=== PATIENT | male | born 1950 | race Caucasian/White ===

== ENCOUNTER → 2019-12-23 14:40 | Outpatient (BNVA) | payer OTHER, SELFPAY | PROVIDERS: Visit Provider Internal Medicine | DX: I48.20 Chronic atrial fibrillation, unspecified (principal); Z51.81 Encounter for therapeutic drug level monitoring; Z79.01 Long term (current) use of anticoagulants | CPT/HCPCS: 85610 ==

== ENCOUNTER 2019-12-31 12:43 | Outpatient (REF) | payer OTHER, SELFPAY | END 2019-12-31 12:44 | disposition home or self-care (01) | LOC: HO.LAB 12:43 | PROVIDERS: PCP Internal Medicine; Visit Provider Physician Assistant | DX: Z01.812 Encounter for preprocedural laboratory examination (principal); M17.12 Unilateral primary osteoarthritis, left knee | CPT/HCPCS: 85610 ==

== ENCOUNTER 2020-01-03 06:26 | Inpatient (IN) | payer OTHER, SELFPAY ==
--- NOTE | 2019-12-31 11:08 | HO.ANESPROP2 ---
Documented by User: Starr Manzoney 12/31/19 13:17 HPI - Anesthesia Eval Consult details Narrative: 69yo M for L TKA rescheduled from 10/2019 d/t rash on L leg Cardiac cleared at [facility] PCP cleared with increased risk per health hx s/p R TKA 02/2019 with spinal and block (todd to 30's preop - given inotrop-dopamine per cardiology, see record on chart) [facility] Past Medical History Medical History Anemia Atrial fibrillation BPH (benign prostatic hyperplasia) COPD (chronic obstructive pulmonary disease) Deafness in left ear Diabetes GERD (gastroesophageal reflux disease) Hard of hearing History of amputation of toe Obesity JUDIE (obstructive sleep apnea) Osteoarthritis Peripheral edema Venous stasis Surgical History Surgical History History of bilateral hip replacements Hx of colonoscopy Hx of total knee arthroplasty Hx of total shoulder replacement Uses cochlear implant Social History Social History Household Members: Spouse Alcohol intake: never Smoking Status: Former smoker Second Hand Smoke Exposure: No Use of substances other than those prescribed or required for medical reasons: No Advance Directives: Yes Advance Directives Information Provided: No Advance Directives on File: Yes Advance Directives Date on File: 12/31/19 Meds Allergies Allergy/AdvReac Type Severity Reaction Status Date / Time Penicillins [PENICILLINS] Allergy Intermediate rash- Verified 12/31/19 14:04 STATES BAD RXN CHILD penicillin V Allergy Unknown RASH Verified 12/31/19 14:04 Home Medications Medication Instructions Recorded Confirmed Type carvedilol 1 tab PO BID 12/31/19 12/31/19 History digoxin 1 tab PO DAILY 12/31/19 12/31/19 History diltiazem HCl 1 cap PO DAILY 12/31/19 12/31/19 History diltiazem HCl [Cartia XT] 1 cap PO DAILY 12/31/19 12/31/19 History enoxaparin [Lovenox] 100 mg SUBCUT DAILY 12/31/19 12/31/19 History furosemide 1 tab PO DAILY 12/31/19 12/31/19 History glipizide tab PO 12/31/19 History insulin glargine [Lantus Solostar 30 unit SUBCUT BEDTIME 12/31/19 12/31/19 History U-100 Insulin] metformin tab PO 12/31/19 History omeprazole 1 cap PO DAILY 12/31/19 12/31/19 History omeprazole 10 mg capsule,delayed 10 mg PO DAILY 12/31/19 History release oxycodone 1 tab PO Q6H PRN 12/31/19 01/03/20 History pravastatin 1 tab PO DAILY 12/31/19 12/31/19 History tamsulosin 1 cap PO DAILY 12/31/19 12/31/19 History Exam Exam Date and Time: December 31, 2019 1108 Pertinent Lab Results Pertinent Lab Results: Laboratory Tests 07/12/19 10/12/19 11:50 06:34 WBC 11.3 H Hgb 13.9 L Hct 40.2 L Plt Count 224 Sodium 141 Potassium 4.2 Chloride 103 BUN 17 H Creatinine 0.94 Laboratory Tests 11/05/19 15:00 ABO Group T&S COMPLETED Narrative Narrative: EKG 10/14/19: Afib @ 74, PVC vs aberrant conduction, non-spec ST-T change ECHO 07/2019: LVEF 60-65% mild MR, mild TR, mild pulm htn Cath 2013: no signif CAD Documented by User: Lazaro Hsieh MD 01/03/20 12:24 [facility] Past Medical History Medical History Anemia Atrial fibrillation BPH (benign prostatic hyperplasia) COPD (chronic obstructive pulmonary disease) Deafness in left ear Diabetes GERD (gastroesophageal reflux disease) Hard of hearing History of amputation of toe Obesity JUDIE (obstructive sleep apnea) Osteoarthritis Peripheral edema Venous stasis Surgical History Surgical History History of bilateral hip replacements Hx of colonoscopy Hx of total knee arthroplasty Hx of total shoulder replacement Uses cochlear implant Social History Social History Household Members: Spouse Alcohol intake: never Smoking Status: Former smoker Second Hand Smoke Exposure: No Use of substances other than those prescribed or required for medical reasons: No Advance Directives: Yes Advance Directives Information Provided: No Advance Directives on File: Yes Advance Directives Date on File: 12/31/19 Meds Allergies Allergy/AdvReac Type Severity Reaction Status Date / Time Penicillins [PENICILLINS] Allergy Intermediate rash- Verified 12/31/19 14:04 STATES BAD RXN CHILD penicillin V Allergy Unknown RASH Verified 12/31/19 14:04 Home Medications Medication Instructions Recorded Confirmed Type carvedilol 1 tab PO BID 12/31/19 12/31/19 History digoxin 1 tab PO DAILY 12/31/19 12/31/19 History diltiazem HCl 1 cap PO DAILY 12/31/19 12/31/19 History diltiazem HCl [Cartia XT] 1 cap PO DAILY 12/31/19 12/31/19 History enoxaparin [Lovenox] 100 mg SUBCUT DAILY 12/31/19 12/31/19 History furosemide 1 tab PO DAILY 12/31/19 12/31/19 History glipizide tab PO 12/31/19 History insulin glargine [Lantus Solostar 30 unit SUBCUT BEDTIME 12/31/19 12/31/19 History U-100 Insulin] metformin tab PO 12/31/19 History omeprazole 1 cap PO DAILY 12/31/19 12/31/19 History omeprazole 10 mg capsule,delayed 10 mg PO DAILY 12/31/19 History release oxycodone 1 tab PO Q6H PRN 12/31/19 01/03/20 History pravastatin 1 tab PO DAILY 12/31/19 12/31/19 History tamsulosin 1 cap PO DAILY 12/31/19 12/31/19 History Exam Airway Mallampati Class: II TM Dist: >3cm Neck ROM: Full Lungs: nl Assessment and Plan Assessment Anesthesia Assessment: Anesthesia Plan Discussed and Chart Reviewed Final Anesthetic Review NPO: Yes ASA Class: IV Final Preanesthetic Review: No Changes in Pt Med Stat, Meds/Allgs Chart Reviewed, Consent Obtained/Reviewed and Anes Risks/Benef Reviewed Patient Risk: High Procedure Risk: Intermediate Anesthetic Plan Anesthetic Plan: MAC:, Spinal and Regional Block Disposition: Standard PACU
[2019-12-31 12:48] VITALS: BMI 37.0
--- NOTE | 2019-12-31 12:54 | HP_ITS ---
DATE OF SERVICE: 01/03/2020 Preoperative history and physical HISTORY OF PRESENT ILLNESS: The patient is a 69-year-old male, who was seen in the office earlier this month for preop evaluation prior to left total knee replacement originally scheduled in October. The patient developed open ulcerations in the lower leg, that grew out MRSA. His surgery had to be postponed until this cleared up. On his last check, his scabs have dried and appeared to have cleared up. He was seen again on 12/09/2019. REVIEW OF SYSTEMS: No chest pains. Some dyspnea with exertion. No coughing or wheezing. Some peripheral edema. No headache or dizziness. No abdominal pain or heartburn. No dysuria. He has joint pains in multiple areas including his back pain. He walks with a cane. No speech changes. He is hard of hearing. He has been depressed about his pain and decreased mobility. Sleep and appetite are unchanged. He does not complain of seasonal allergies. His skin problem seems to have improved. PRESENT MEDICATIONS: Metformin 1000 in the morning and 500 at night, Lantus insulin 36 units a day, Pravachol 80 mg a day, tamsulosin 0.4 mg at bedtime, diltiazem 240 mg a day, digoxin 0.25 mg a day, Coumadin to keep the INR between 2 and 3, Lasix 40 mg a day, glipizide 10 mg p.o. b.i.d., Prilosec 40 mg a day, carvedilol 12.5 mg p.o. b.i.d., and oxycodone 1 p.o. 5 times a day for pain control. ALLERGIES: HE HAS AN ALLERGY TO PENICILLIN. FAMILY HISTORY: Please see old record. SOCIAL HISTORY: He is retired, , disabled, has 1 daughter. PHYSICAL EXAMINATION: GENERAL: He is awake and alert, in no acute distress. VITAL SIGNS: Respiratory rate 12, blood pressure 124/84, heart rate atrial fibrillation. HEENT: TMs clear. NECK: Supple. No lymph nodes, bruits, or masses. LUNGS: Clear, little distant. ABDOMEN: Obese, soft. EXTREMITIES: 1 to 2+ edema. Leg wounds crusted over and dry. ASSESSMENT AND PLAN: He is medically stable for the proposed procedure. Risks are his history of atrial fibrillation, peripheral edema, methicillin-resistant Staphylococcus aureus history, chronic obstructive pulmonary disease. I will be available if there are any medical questions about his listed medications or prior medical problems. He also has a history of sleep apnea. He has had both hips replaced in 1994 and 1995. He has had 3 pneumonia vaccines in the past. I am not aware of his flu shot status at this time. He has had some issues with anemia. MD GIO Khan/JURGEN / [id number]
--- NOTE | 2020-01-02 20:28 | MHC.SHP ---
Pre-Procedural Eval Section A The patient is an INPATIENT: No Changes since office visit: No Cold of Flu in the past 2 weeks, No New Medical Problems, No Changes in Medication and No Patient answered all questions The History & Physical has been completed within 30 days and I have reviewed it.: Yes Section B Chief Complaint: Osteoarthritis Allergies: Allergies Allergy/AdvReac Type Severity Reaction Status Date / Time Penicillins [PENICILLINS] Allergy Intermediate rash- Verified 12/31/19 14:04 STATES BAD RXN CHILD penicillin V Allergy Unknown RASH Verified 12/31/19 14:04 Plan Patient has been examined and remains a candidate for the planned procedure
[2020-01-03] VITALS (23 sets, daily range): BP systolic 106–175; BP diastolic 51–93; PULSE 32–136; RESP 16–24; TEMP 36.5–39.5; O2SAT 90–99
--- NOTE | 2020-01-03 | ECG_ITS ---
Test Reason : tachycardia Blood Pressure : / mmHG Vent. Rate : 136 BPM Atrial Rate : 133 BPM P-R Int : 000 ms QRS Dur : 076 ms QT Int : 256 ms P-R-T Axes : 000 089 263 degrees QTc Int : 385 ms Atrial fibrillation with rapid vent response ST & T wave abnormality, consider inferior ischemia Abnormal ECG When compared with ECG of 15-FEB-2019 11:12, Vent. rate has increased BY [address] now depressed in Anterolateral leads Inverted T waves have replaced nonspecific T wave abnormality in Inferior leads Referred By: Deb Peng Electronically Signed By:VANESSA THOMAS MD
--- NOTE | 2020-01-03 | XR_ITS ---
EXAMINATION: XR CHEST CLINICAL INFORMATION: Hypoxia COMPARISON: Chest 07/31/2018 TECHNIQUE: Frontal portable view of the chest was obtained. 8:46 PM FINDINGS: Lungs are clear. No pulmonary vascular congestion. There is no pleural effusion. The heart size is normal. The cardiac and mediastinal contours are normal. Status post left shoulder replacement. Multilevel degenerative spondylosis of dorsal spine. XR/XR chest 1V IMPRESSION: Unremarkable examination.
[2020-01-03 09:01] LABS: Prothrombin Time 11.9 SEC (10.8-13.0)
[2020-01-03 09:07] LABS: Glucose, Whole Blood 158 mg/dL (60-115)
[2020-01-03] MEDS: Gabapentin 600 MG TABLET PO (09:29)
[2020-01-03] MEDS: Lactated Ringers 1,000 ML 100 ML IVCONT ×2 (09:29→17:42)
[2020-01-03 09:30] LABS: SARS COV2 PCR INHOUSE NEGATIVE (Negative)
--- NOTE | 2020-01-03 12:49 | PM.PRCOR ---
Brief Operative Note Date of procedure: 01/03/20 Pre-op diagnosis: OA LEFT KNEE Post-op diagnosis: same Procedure: LEFT TKA Anesthesia: regional and spinal Surgeon: Veronica Morrow Estimated blood loss (mL): 50 Condition: stable Disposition: PACU
--- NOTE | 2020-01-03 13:24 | HO.POSTANES ---
Post Anesthesia Evaluation Post Anesthesia Evaluation Vital Signs: Vital Signs Temp Pulse Resp BP Pulse Ox 01/03/20 13:10 36 L 16 99 01/03/20 12:55 40 L 16 110/56 L 96 01/03/20 12:50 39 L 16 111/52 L 98 01/03/20 12:45 41 L 16 112/63 98 01/03/20 12:40 97.8 F 39 L 16 106/51 L 98 01/03/20 09:28 98.4 F 32 L 16 128/68 97 Anesthesia: Spinal Mental Status: Awake Pain Control: Satisfactory Nausea/Vomiting: None Hydration: Adequate Anesthesia-Related Issues: No Anes. Related Issues
[2020-01-03] MEDS: oxyCODONE HCl Immed Release 5 MG TABLET PO (15:59)
[2020-01-03] MEDS: HYDROmorphone HCl 1 MG/ML SYRINGE IVPUSH (16:10)
[2020-01-03] MEDS: Glycopyrrolate 0.2 MG/ML VIAL IVPUSH (16:15)
[2020-01-03 17:34] LABS: Glucose, Whole Blood 75 mg/dL (60-115)
[2020-01-03] MEDS: Acetaminophen 325 MG TABLET 650 MG PO (19:57)
--- NOTE | 2020-01-03 20:00 | P.CONIM_ITS ---
History of Present Illness Data of Consult Service Date: 01/03/20 <Deb Peng NP - Last Filed: 01/04/20 18:29> Requesting physician: Veronica Morrow <Deb Peng NP - Last Filed: 01/04/20 18:29> Primary Care Provider: Darien Bruner MD <Deb Peng NP - Last Filed: 01/04/20 18:29> HPI Reason for consult: medical management <Deb Peng NP - Last Filed: 01/04/20 18:29> 69-year-old man with history of atrial fibrillation, arthritis, diabetes admitted by Orthopedic surgery and is status post left total knee arthroplasty. Surgery was unremarkable. Patient has been able to eat and drink without any nausea vomiting or diarrhea. Patient has a moderate amount of pain at this time. He has no acute medical complaints. It appears that he has a fever of 102.9, heart rate 124. EKG shows atrial fibrillation with rapid ventricular response and likely aspiration pneumonia post-op. During the interview patient did have some noticeable shivers. <Deb Peng NP - Last Filed: 01/04/20 18:29> Review of Systems Review of Systems: Denies any recent fever chills or decrease in appetite respiratory denies any shortness of breath coverage production cardiovascular is adjustment of any PND or edema gastrointestinal denies any dysphagia abdominal pain nausea vomiting or diarrhea genitourinary denies any dysuria frequency or hematuria musculoskeletal denies any joint pain or swelling neuropsych denies any weakness or seizures all other systems reviewed are negative <Deb Peng NP - Last Filed: 01/04/20 18:29> [facility] Medical History: Medical History Anemia Atrial fibrillation BPH (benign prostatic hyperplasia) COPD (chronic obstructive pulmonary disease) Deafness in left ear Diabetes GERD (gastroesophageal reflux disease) Hard of hearing History of amputation of toe Obesity JUDIE (obstructive sleep apnea) Osteoarthritis Peripheral edema Venous stasis <Deb Peng NP - Last Filed: 01/04/20 18:29> Surgical History: Surgical History History of bilateral hip replacements Hx of colonoscopy Hx of total knee arthroplasty Hx of total shoulder replacement Uses cochlear implant <Deb Peng NP - Last Filed: 01/04/20 18:29> Social History: Social History Household Members: Spouse Housing: House Do you presently have visiting nurse or other home services: No (for discharge) Alcohol intake: never Smoking Status: Former smoker Smoking Quit Date: 1999 Second Hand Smoke Exposure: No Use of substances other than those prescribed or required for medical reasons: No Currently Displaying Signs/Symptoms of Drug Intoxication Withdrawal: No Have you been hit, kicked, punched, or otherwise hurt by someone within the past year? If so, by whom?: No Do you feel safe in your current relationship?: Yes Is there a partner from a previous relationship who is making you feel unsafe now?: No Are you made to feel afraid or neglected: No Confucianist Healthcare Practices: scientologist Advance Directives: Yes Advance Directives Information Provided: No Advance Directives on File: Yes Advance Directives Date on File: 12/31/19 Do you have thoughts of harming others: None Do you have a plan to hurt others: No Plan Recently lost weight without trying: No service: No 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al status: retired <Deb Peng NP - Last Filed: 01/04/20 18:29> Meds Allergies/Adverse reactions: Allergies Allergy/AdvReac Type Severity Reaction Status Date / Time Penicillins [PENICILLINS] Allergy Intermediate rash- Verified 12/31/19 14:04 STATES BAD RXN CHILD penicillin V Allergy Unknown RASH Verified 12/31/19 14:04 <Deb Peng NP - Last Filed: 01/04/20 18:29> Home medications: Home Medications Medication Instructions Recorded Confirmed Type carvedilol 12.5 mg PO BID 12/31/19 01/04/20 History digoxin 250 mcg PO DAILY 12/31/19 01/04/20 History diltiazem HCl 240 mg PO DAILY 12/31/19 01/04/20 History furosemide 40 mg PO DAILY 12/31/19 01/04/20 History glipizide 10 mg PO BIDWM 12/31/19 01/04/20 History insulin glargine [Lantus Solostar 30 unit SUBCUT BEDTIME 12/31/19 12/31/19 History U-100 Insulin] metformin 1,500 mg PO DAILY 12/31/19 01/04/20 History omeprazole 40 mg PO DAILY 12/31/19 01/04/20 History oxycodone 5 mg PO Q6H PRN 12/31/19 01/04/20 History pravastatin 80 mg PO DAILY 12/31/19 01/04/20 History tamsulosin 0.4 mg PO DAILY@1700 12/31/19 01/04/20 History <Deb Peng NP - Last Filed: 01/04/20 18:29> Physical Exam Vital Signs and Narrative: Vital Signs: Last Vital Signs Temp 102.9 F H 01/03/20 19:07 Pulse 124 H 01/03/20 19:07 Resp 18 01/03/20 19:07 BP 163/93 H 01/03/20 19:07 Pulse Ox 90 L 01/03/20 19:07 Body Mass Index 37.0 <Deb Peng NP - Last Filed: 01/04/20 18:29> Appearing in no acute distress head is normocephalic atraumatic eyes pupils are PERRLA sclera is anicteric mouth throat mucous membranes are intact and moist neck is supple no lymphadenopathy, no JVD noted lung sounds are clear to auscultation heart regular rate rhythm, clear S1, S2 msk Left knee dressing clean, dry and intact positive bowel sounds, abdomen is soft, nontender neuro patient is alert x3, no focal deficits <Deb Peng NP - Last Filed: 01/04/20 18:29> Results Labs Labs: Laboratory Tests 12/31/19 01/03/20 01/03/20 14:35 08:28 08:40 PT 11.9 INR 1.0 POC Glucose Coronavirus (PCR) NEGATIVE Blood Type B Positive Antibody Screen NEGATIVE 01/03/20 01/03/20 09:04 17:30 PT INR POC Glucose 158 H 75 Coronavirus (PCR) Blood Type Antibody Screen <Deb Peng NP - Last Filed: 01/04/20 18:29> Assessment and Plan (1) Osteoarthritis of left knee: Status: Acute <Deb Peng NP - Last Filed: 01/04/20 18:29> 69-year-old man admitted by Orthopedic surgery and is status post left total knee arthroplasty. During the interview the patient did have some intermittent shivering and at 19:00 vital signs were taken and he was noted to have a fever of 102.9, heart rate of 124 and oxygen saturation of 90% on room air. Patient denied any shortness of breath or chest pain. There was a question of acute infection, aspiration pneumonia. Will treat for PNA and possible CHF as well as afib rvr. Left total knee arthroplasty. Management as per surgical team. Pain management. Severe sepsis. Fever, tachypnea and lactic acidosis. Will give 30ml/KG bolus. Tachycardia is likely related to atrial fibrillation with RVR. Acute hypoxic respiratory failure secondary to CAP vs aspiration. Will treat broadly. Follow blood cultures. Atrial fibrillation with rapid ventricular response. Will treat with IV push Cardizem. If heart rate does not come down consider Cardizem drip. Monitor on telemetry. Patient on carvedilol, digoxin and diltiazem at home as well as warfarin, hold for now. Heart failure. ? edema, follow BNP. One dose of Lasix given. Diabetes mellitus. Sliding scale, ADA diet, Hold Lantus, low blood sugar. GERD. Continue PPI. Hyperlipidemia. Continue statin. BPH. Continue tamsulosin. DVT prophylaxis as per surgical team. Patient is normally on warfarin at home atrial fibrillation. Discussed with Dr. Hewitt Full code <Deb Peng NP - Last Filed: 01/04/20 18:29>
[2020-01-03] MEDS: dilTIAZem HCL 50 MG/10 ML VIAL IVPUSH (20:25)
[2020-01-03 20:46] LABS: MANUAL DIFF FLAG SCAN; PLT CLUMP 1; SCAN SMEAR FLAG 1
[2020-01-03 20:48] LABS: Red Cell Distribution Width 14.3 % (11.0-16.0)
[2020-01-03 20:51] LABS: Anion Gap 18 (12-20); Blood Urea Nitrogen 18 mg/dL (9-16); Calcium 8.9 mg/dL (8.4-10.2); Carbon Dioxide 24 mmol/L (22-29); Chloride 104 mmol/L (96-108); Creatinine Clr Calc Pharmacy 88.2; Estimated Glomerular Filt Rate > 60; Glucose Random 130 mg/dL (60-115); Potassium 4.3 mmol/l (3.3-5.1); Sodium 142 mmol/L (135-145)
[2020-01-03 20:57] LABS: Basophils Percent Auto 0.2 % (0-2)
[2020-01-03] MEDS: Furosemide 40 MG/4 ML VIAL IVPUSH (20:58)
[2020-01-03 20:59] LABS: Eosinophils Percent Auto 0.5 % (0-4); Hematocrit 39.9 % (42-52); Imm Gran Abs Auto 0.08 X10*3/uL (0.00-0.03); Imm Gran Pct Auto 1.9 % (0.0-0.4); Lymphocytes Absolute Auto 0.1 X10*3/uL (1.2-4.9); Lymphocytes Percent Auto 3.3 % (20-40); Mean Corpuscular HGB Conc 32.6 g/dl (31.0-36.0); Mean Platelet Volume 10.5 fL (9.4-12.4); Monocytes Percent Auto 0.9 % (2-11); Neutrophils Absolute Auto 3.9 X10*3/uL (2.0-8.3); Neutrophils Percent Auto 93.2 % (45-73); Platelet Count 149 X10*3/uL (160-400); White Blood Count 4.2 X10*3/uL (4.8-10.8)
[2020-01-03 21:05] LABS: Lactic Acid 5.3 mmol/L (0.5-2.0)
[2020-01-03 21:19] LABS: Glucose, Whole Blood 124 mg/dL (60-115)
[2020-01-03 21:28] LABS: B Type Natriuretic Peptide 138 pg/mL (<100)
[2020-01-03 21:31] LABS: SLIDE REVIEW VERIFIED
[2020-01-03] MEDS: dilTIAZem HCL 125 MG in 0.9 % Sodium Chloride 100 ML 10 MG IVCONT (22:16)
[2020-01-03 22:32] LABS: Reflex Lactate? Lactic Acid Added
[2020-01-03] MEDS: 0.9 % Sodium Chloride 1,000 ML 999 ML IVCONT (22:50)
[2020-01-03] MEDS: Morphine Sulfate 4 MG/ML CARTRIDGE IVPUSH (22:57)
[2020-01-03 23:18] LABS: ~Lactic Acid-LAB USE ONLY 4.5 mmol/L (0.5-2.0)
[2020-01-03] MEDS: cefTRIAXone sodium 1 GM in 0.9 % Sodium Chloride 50 ML IV (23:28)
[2020-01-04] VITALS (9 sets, daily range): BP systolic 111–145; BP diastolic 57–71; PULSE 78–113; RESP 18–20; TEMP 36.2–37.2; O2SAT 92–95; BMI 37.0
[2020-01-04] MEDS: Azithromycin 500 MG in 0.9 % Sodium Chloride 250 ML 125 MG IV ×2 (00:03→22:18)
[2020-01-04] MEDS: oxyCODONE HCl Immed Release 5 MG TABLET 10 MG PO ×4 (00:11→18:03)
[2020-01-04 00:45] LABS: Reflex Lactate? 2 Y
[2020-01-04 01:26] LABS: ~Lactic Acid-LAB USE ONLY 4.3 mmol/L (0.5-2.0)
--- NOTE | 2020-01-04 03:50 | MHC.PIE ---
P: Patient s/p left TKA on 01/02. Shortly after arrival [place] [facility] patient in Afib RVR on telemetry HR 120's- 130's, up to 150. Patient had temp of 102.9 , shivering at times. Patient hypoxic, O2 sats in the 80's on room air. I: Hospitalist service consulted, at bedside to see patient. Cardizem 5 mg IVP ordered/adminstered, had minimal effect, Cardizem drip ordered, drip started at 10mg/hr . Tylenol given for temp , temperature was as high as 103.1. Patient placed on O2 4L, O2 sats 90 %. Lactic acid ordered, result was initially 5.3, is trending down, now 4.3. EKG done ,CXR ordered which was unremarkable. NS 1000 ml bolus ordered, antibiotics, Ceftriaxone, and Azithromycin, Lasix 40 mg IV x1 ordered/administered, E - HR has improved, Afib , in the 80's on telemetry. Cardizem drip stopped as per MD order. O2 sats 95% on 4L O2. LS clear, vital signs stable, temperature 98.9 at present.Patient resting , will continue to monitor.
[2020-01-04] MEDS: Lactated Ringers 1,000 ML 100 ML IVCONT ×2 (06:05)
--- NOTE | 2020-01-04 08:27 | HO.POSTANES ---
Post Anesthesia Evaluation Post Anesthesia Evaluation Vital Signs: Vital Signs Temp Pulse Resp BP Pulse Ox 01/04/20 07:59 98.9 F 85 18 129/67 95 01/04/20 03:40 98.9 F 80 18 111/57 L 95 01/03/20 23:40 98.1 F 103 H 20 114/70 95 01/03/20 22:16 123 H 137/90 H 01/03/20 22:00 101.3 F H 01/03/20 20:45 103.1 F H 131 H 24 H 172/85 H 90 L Anesthesia: Spinal Mental Status: Awake Pain Control: Satisfactory Nausea/Vomiting: None Hydration: Adequate Anesthesia-Related Issues: No Anes. Related Issues
--- NOTE | 2020-01-04 08:44 | MHC.CM.PN ---
CM met with Patient who did not have his hearing aids in and he requested that CM call his . CM spoke with /HCP/Eunice. Patient lives in a house with his and he used a cane & a walker at times to assist with mobility. Patient's goal is to return home with a new referral to [facility] for home PT, after Knee surgery. CM has initiated and will follow for dc planning.PCP is Dr. Teo Bruner.
[2020-01-04] MEDS: Pravastatin Sodium 80 MG TABLET PO (08:51)
[2020-01-04] MEDS: Omeprazole 40 MG CAPSULE.DR PO (08:51)
[2020-01-04] MEDS: Furosemide 40 MG TABLET PO (08:51)
[2020-01-04] MEDS: Tamsulosin HCL 0.4 MG CAPSULE PO (08:51)
--- NOTE | 2020-01-04 09:45 | P.PNOP_ITS ---
Subjective Subjective Principal diagnosis: s/p LT TKA Interval history: POD 1 s/p LT TKA No ovenight events, resting in bed, denies pain. Denies cp, sob, dizziness Physical Exam Vital Signs: Vital Signs: Vital Signs Temp Pulse Resp BP Pulse Ox 01/04/20 07:59 98.9 F 85 18 129/67 95 01/04/20 03:40 98.9 F 80 18 111/57 L 95 01/03/20 23:40 98.1 F 103 H 20 114/70 95 01/03/20 22:16 123 H 137/90 H 01/03/20 22:00 101.3 F H 01/03/20 20:45 103.1 F H 131 H 24 H 172/85 H 90 L 01/03/20 20:25 136 H 175/82 H 01/03/20 19:07 102.9 F H 124 H 18 163/93 H 90 L 01/03/20 17:24 98.8 F 66 18 133/67 94 01/03/20 16:58 97.7 F 58 16 132/57 L 94 01/03/20 16:30 54 16 120/75 94 01/03/20 16:20 98.1 F 62 16 128/72 94 01/03/20 16:10 42 L 16 139/78 01/03/20 15:10 46 L 16 119/65 96 01/03/20 14:40 42 L 16 123/57 L 98 01/03/20 14:10 40 L 16 120/63 97 01/03/20 13:55 38 L 16 110/62 97 01/03/20 13:40 45 L 16 113/68 97 01/03/20 13:25 37 L 16 117/66 98 01/03/20 13:10 36 L 16 99 01/03/20 12:55 40 L 16 110/56 L 96 01/03/20 12:50 39 L 16 111/52 L 98 01/03/20 12:45 41 L 16 112/63 98 01/03/20 12:40 97.8 F 39 L 16 106/51 L 98 Body Mass Index 37.0 Const: General: cooperative, healthy appearing and no acute distress Resp: Effort & Inspection: normal respiratory effort and able to speak in complete sentences Cardio: Rate: regular rate Peripheral pulses: Peripheral pulses 2+ througho ut GI: Inspection: Yes normal to inspection Palpation (GI): Soft to palpation Skin: General skin exam: no rashes or lesions noted Extrem: Other: Left knee bandage intact, no drainage. no erythema , mild edema, sensation intact. ROM 0-90 Progress Note: A&P Assessment and plan (1) Status post total left knee replacement: Status: Acute Assessment and Plan: Continue pain mgmnt Begin dvt ppx--bridge with lovenox until INR therapeutic begin PT for LT TKA Dispo planning-Pending PT eval, pain mgmnt Fall Risk Details Current Medications: Current Medications Generic Name Dose Route Start Last Admin Trade Name Freq PRN Reason Stop Dose Admin Acetaminophen 650 mg 01/03/20 19:26 01/03/20 19:57 Acetaminophen 325 Mg Tablet PO 650 mg Q6H PRN Administration Pain and Fever Albuterol Sulfate 2.5 mg 01/03/20 08:36 Albuterol Sulfate (0.083%) 2.5 Mg/3 Ml Vial.Neb INHALE ONCE PRN Shortness of Breath/Wheezing Furosemide 40 mg 01/04/20 09:00 01/04/20 08:51 Furosemide 40 Mg Tablet PO 40 mg DAILY BESSIE Administration Protocol Lactated Ringer's 1,000 mls @ 100 mls/hr 01/03/20 08:45 01/04/20 06:05 Lr IVCONT 100 mls/hr .Q10H BESSIE Administration Ceftriaxone Sodium 1 gm/ 50 mls @ 100 mls/hr 01/03/20 22:00 01/04/20 00:17 Sodium Chloride IV Infused Q24H BESSIE Infusion Azithromycin 500 mg/ Sodium 250 mls @ 125 mls/hr 01/03/20 21:00 01/04/20 03:32 Chloride IV Infused Q24H BESSIE Infusion Diltiazem HCl 125 mg/ Sodium 125 mls @ 0 mls/hr 01/03/20 21:30 01/04/20 07:23 Chloride IVCONT 10 mg/hr .Q0M BESSIE 10 mls/hr Titration Protocol Per Protocol Omeprazole 40 mg 01/04/20 09:00 01/04/20 08:51 Omeprazole 40 Mg Capsule. PO 40 mg DAILY BESSIE Administration Oxycodone HCl 10 mg 01/03/20 22:35 01/04/20 06:00 Oxycodone Hcl Immed Release 5 Mg Tablet PO 10 mg Q6H BESSIE Administration Pravastatin Sodium 80 mg 01/04/20 09:00 01/04/20 08:51 Pravastatin Sodium 80 Mg Tablet PO 80 mg DAILY BESSIE Administration Tamsulosin HCl 0.4 mg 01/04/20 09:00 01/04/20 08:51 Tamsulosin Hcl 0.4 Mg Capsule PO 0.4 mg DAILY BESSIE Administration Time Spent With Patient Time: Total time spent is greater than 50% in coordination of care (as documented) at patient's floor/unit and/or counseling patient: Time with patient: 15 - 24 minutes
[2020-01-04 10:53] LABS: INTERNATIONAL NORM RATIO 1.2 (0.9-1.1); Prothrombin Time 13.8 SEC (10.8-13.0)
[2020-01-04] MEDS: Enoxaparin Sodium 40 MG/0.4 ML SYRINGE SUBCUT (11:31)
[2020-01-04 12:04] LABS: Glucose, Whole Blood 150 mg/dL (60-115)
[2020-01-04 13:10] LABS: Glucose Urine UA NEG (NEG); Leukocyte Esterase Urine TRACE (NEG); Nitrite Urine POS (NEG); Specific Gravity - Urine 1.025 (1.005-1.025); Urine Blood 3+ (NEG); Urine Ketones NEG (NEG); Urine Protein 1+ MG/DL (NEG-TRACE)
[2020-01-04 13:15] LABS: Appearance Urine CLOUDY; Color Urine DARK YELLOW
[2020-01-04 13:24] LABS: Amorphous Sediment Urine 2+ /LPF; Bacteria Urine TRACE /LPF; RBC Urine TNTC /HPF (0); Squamous Epithelial Cell Urine TRACE /LPF
--- NOTE | 2020-01-04 16:04 | P.PNIM_ITS ---
Subjective Subjective Date of Service: 01/04/20 Interval History: afib ,? sepsis Review of Systems denies any chest pain or sob Physical Exam Vital Signs: Vital Signs: Vital Signs Temp Pulse Pulse Resp BP Pulse Ox 01/04/20 15:21 97.7 F 83 20 127/63 92 01/04/20 11:59 99.0 F 91 20 141/69 H 92 01/04/20 08:00 94 01/04/20 07:59 98.9 F 85 18 129/67 95 01/04/20 03:40 98.9 F 80 18 111/57 L 95 01/03/20 23:40 98.1 F 103 H 20 114/70 95 01/03/20 22:16 123 H 137/90 H 01/03/20 22:00 101.3 F H 01/03/20 20:45 103.1 F H 131 H 24 H 172/85 H 90 L 01/03/20 20:25 136 H 175/82 H 01/03/20 19:07 102.9 F H 124 H 18 163/93 H 90 L 01/03/20 17:24 98.8 F 66 18 133/67 94 01/03/20 16:58 97.7 F 58 16 132/57 L 94 01/03/20 16:30 54 16 120/75 94 01/03/20 16:20 98.1 F 62 16 128/72 94 01/03/20 16:10 42 L 16 139/78 Body Mass Index 37.0 Physical exam: Cvs: rrr, [id number] , no murmur res: clear to auscultation ,no rhonchii or wheezing abd: no rebound or guarding ,nt, bs present. ext pulses present , no cyanosis left knee area : no discharge or erythema neuro: axo3 , nonfocal. Objective Data Current Medications Generic Name Dose Route Start Last Admin Trade Name Freq PRN Reason Stop Dose Admin Acetaminophen 650 mg 01/03/20 19:26 01/03/20 19:57 Acetaminophen 325 Mg Tablet PO 650 mg Q6H PRN Administration Pain and Fever Albuterol Sulfate 2.5 mg 01/03/20 08:36 Albuterol Sulfate (0.083%) 2.5 Mg/3 Ml Vial.Neb INHALE ONCE PRN Shortness of Breath/Wheezing Enoxaparin Sodium 40 mg 01/04/20 10:00 01/04/20 11:31 Enoxaparin Sodium 40 Mg/0.4 Ml Syringe SUBCUT 40 mg Q24H BESSIE Administration Furosemide 40 mg 01/04/20 09:00 01/04/20 08:51 Furosemide 40 Mg Tablet PO 40 mg DAILY BESSIE Administration Protocol Lactated Ringer's 1,000 mls @ 100 mls/hr 01/03/20 08:45 01/04/20 06:05 Lr IVCONT 100 mls/hr .Q10H BESSIE Administration Ceftriaxone Sodium 1 gm/ 50 mls @ 100 mls/hr 01/03/20 22:00 01/04/20 00:17 Sodium Chloride IV Infused Q24H BESSIE Infusion Azithromycin 500 mg/ Sodium 250 mls @ 125 mls/hr 01/03/20 21:00 01/04/20 03:32 Chloride IV Infused Q24H BESSIE Infusion Diltiazem HCl 125 mg/ Sodium 125 mls @ 0 mls/hr 01/03/20 21:30 01/04/20 12:34 Chloride IVCONT Infused .Q0M BESSIE Titration Protocol Per Protocol Omeprazole 40 mg 01/04/20 09:00 01/04/20 08:51 Omeprazole 40 Mg Capsule.Dr PO 40 mg DAILY BESSIE Administration Oxycodone HCl 10 mg 01/04/20 12:00 01/04/20 11:31 Oxycodone Hcl Immed Release 5 Mg Tablet PO 10 mg Q6H BESSIE Administration Pravastatin Sodium 80 mg 01/04/20 09:00 01/04/20 08:51 Pravastatin Sodium 80 Mg Tablet PO 80 mg DAILY BESSIE Administration Tamsulosin HCl 0.4 mg 01/04/20 09:00 01/04/20 08:51 Tamsulosin Hcl 0.4 Mg Capsule PO 0.4 mg DAILY BESSIE Administration Warfarin Sodium 4 mg 01/04/20 18:00 Warfarin Sodium 4 Mg Tablet PO DAILY@1800 [facility] Labs CBC & Chem 7: 01/05/20 05:47 01/03/20 20:25 Assessment and Plan (1) Chronic a-fib: Status: Acute (2) Osteoarthritis of left knee: Status: Acute Assessment and Plan: 1.Left total knee arthroplasty. Pain management. Incentive Sixto Bowel regimen 2.Acute hypoxic respiratory failure secondary to CAP vs aspiration. Also was severe sepsis as per yesterday's documentation Yesterday received fluid bolus, IV antibiotics ordered, blood culture pending. Continue IV antibiotics Id evaluation. 3.Atrial fibrillation with rapid ventricular response. : Heart rate controlled, patient is asymptomatic, will hold off Cardizem drip- Start back on carvedilol, digoxin and diltiazem at home as well as warfarin, hold for now. 4.Heart failure. bnp seems improving continue lasix hold iv f 5.Diabetes mellitus. fs runninh 130-150 continue fs with coverage , avoid coverage below 200 mg/dL. 6.GERD. Continue PPI. 7.Hyperlipidemia. Continue statin. 8. BPH. Continue tamsulosin. DVT prophylaxis as per surgical team. on warfarin at home atrial fibrillation.
[2020-01-04] MEDS: dilTIAZem HCL CD 240 MG CAP.ER.DEG PO (16:55)
[2020-01-04] MEDS: Digoxin 0.25 MG TABLET PO (16:55)
[2020-01-04 16:56] LABS: Glucose, Whole Blood 140 mg/dL (60-115)
[2020-01-04] MEDS: Warfarin Sodium 4 MG TABLET PO (18:03)
[2020-01-04 21:38] LABS: Glucose, Whole Blood 214 mg/dL (60-115)
[2020-01-04] MEDS: carvediloL 12.5 MG TABLET PO (22:21)
[2020-01-04] MEDS: cefTRIAXone sodium 1 GM in 0.9 % Sodium Chloride 50 ML IV (22:22)
[2020-01-04] MEDS: Insulin Glargine,Hum.rec.anlog 100 UNIT/ML 10 ML VIAL SUBCUT (22:22)
[2020-01-05] VITALS (9 sets, daily range): BP systolic 100–117; BP diastolic 53–61; PULSE 54–103; RESP 18–20; TEMP 36.6–37.7; O2SAT 91–96
[2020-01-05] MEDS: oxyCODONE HCl Immed Release 5 MG TABLET 10 MG PO ×5 (00:26→23:48)
[2020-01-05 06:41] LABS: INTERNATIONAL NORM RATIO 1.2 (0.9-1.1); Prothrombin Time 14.7 SEC (10.8-13.0)
[2020-01-05 07:28] LABS: Glucose, Whole Blood 177 mg/dL (60-115)
[2020-01-05 07:29] LABS: Hematocrit 31.7 % (42-52); Hemoglobin 10.2 g/dl (14.0-18.0); Mean Corpuscular HGB Conc 32.2 g/dl (31.0-36.0); Mean Corpuscular Hemoglobin 30.9 pg (27.0-33.0); Mean Corpuscular Volume 96.1 fL (80-98); Mean Platelet Volume 11.9 fL (9.4-12.4); Red Cell Distribution Width 14.8 % (11.0-16.0); White Blood Count 22.3 X10*3/uL (4.8-10.8)
[2020-01-05 07:32] LABS: Platelet Count 99 X10*3/uL (160-400)
--- NOTE | 2020-01-05 08:00 | XR_ITS ---
EXAMINATION: XR KNEE, LEFT CLINICAL INFORMATION: Post left knee replacement COMPARISON: Previous x-rays most recent October 2019 TECHNIQUE: Two views of the left knee. FINDINGS: There is a new 3 component left knee replacement. No fracture or dislocation is seen. There are postoperative changes to the soft tissues. XR/XR knee LT 2V IMPRESSION: Satisfactory appearance of left knee replacement.
[2020-01-05] MEDS: Enoxaparin Sodium 40 MG/0.4 ML SYRINGE SUBCUT (08:42)
[2020-01-05] MEDS: Pravastatin Sodium 80 MG TABLET PO (08:43)
[2020-01-05] MEDS: Digoxin 0.25 MG TABLET PO (08:43)
[2020-01-05] MEDS: Tamsulosin HCL 0.4 MG CAPSULE PO (08:43)
[2020-01-05] MEDS: Omeprazole 40 MG CAPSULE.DR PO (08:43)
[2020-01-05] MEDS: Furosemide 40 MG TABLET PO (08:43)
[2020-01-05] MEDS: carvediloL 12.5 MG TABLET PO ×2 (08:43→20:42)
[2020-01-05] MEDS: dilTIAZem HCL CD 240 MG CAP.ER.DEG PO (08:43)
[2020-01-05 11:36] LABS: Glucose, Whole Blood 222 mg/dL (60-115)
--- NOTE | 2020-01-05 14:05 | MHC.CM.PN ---
The goal for dc is now for Patient to return home with a new referral to VNA. Per Patient's choice, a referral was made to [facility]. Patient does not appear medically ready for dc (pain s/p (L)TKA, IVABT R/T PNA, and IV Diltiazem). CM will continue to follow for any need to adjust the dc plan.
--- NOTE | 2020-01-05 15:31 | PM.PNORT ---
Subjective Subjective Principal diagnosis: s/p LT TKA Interval history: POD 2 s/p LT TKA No overnight events, resting in chair working well with PT. Denies fever or chills. No SOB or CP. Physical Exam Vital Signs: Vital Signs: Vital Signs Temp Pulse Pulse Resp BP Pulse Ox 01/05/20 15:14 99.8 F 59 20 115/60 94 01/05/20 11:05 98.8 F 62 20 115/53 L 92 01/05/20 08:43 72 117/61 01/05/20 08:00 103 H 01/05/20 07:45 99.2 F 72 18 117/61 94 01/05/20 04:00 98.8 F 72 18 104/58 L 96 01/04/20 23:37 98.9 F 79 18 125/71 95 01/04/20 22:21 91 140/69 H 01/04/20 19:26 97.1 F 78 18 145/70 H 93 01/04/20 16:55 113 H 127/63 Body Mass Index 37.0 Const: General: cooperative, healthy appearing and no acute distress Resp: Effort & Inspection: normal respiratory effort and able to speak in complete sentences Cardio: Rate: regular rate Peripheral pulses: Peripheral pulses 2+ throughout GI: Inspection: Yes normal to inspection Palpation (GI): Soft to palpation Skin: General skin exam: no rashes or lesions noted Extrem: Other: Left knee incision clean, dry and intact. No erythema, mild edema, sensation intact. Progress Note: A&P Assessment and plan (1) Status post total left knee replacement: Status: Acute Assessment and Plan: Continue pain mgmnt Continue bridging lovenox until INR therapeutic. PT for LT TKA ID consult-pending recommendations requested by Hospitalist Dispo planning-Pending PT eval, pain mgmnt Fall Risk Details Current Medications: Current Medications Generic Name Dose Route Start Last Admin Trade Name Freq PRN Reason Stop Dose Admin Acetaminophen 650 mg 01/03/20 19:26 01/03/20 19:57 Acetaminophen 325 Mg Tablet PO 650 mg Q6H PRN Administration Pain and Fever Albuterol Sulfate 2.5 mg 01/03/20 08:36 Albuterol Sulfate (0.083%) 2.5 Mg/3 Ml Vial.Neb INHALE ONCE PRN Shortness of Breath/Wheezing Carvedilol 12.5 mg 01/04/20 21:00 01/05/20 08:43 Carvedilol 12.5 Mg Tablet PO 12.5 mg BID BESSIE Administration Protocol Digoxin 0.25 mg 01/04/20 16:30 01/05/20 08:43 Digoxin 0.25 Mg Tablet PO 0.25 mg DAILY BESSIE Administration Diltiazem HCl 240 mg 01/04/20 16:30 01/05/20 08:43 Diltiazem Hcl Cd 240 Mg Cap.Er.Deg PO 240 mg DAILY BESSIE Administration Protocol Enoxaparin Sodium 40 mg 01/04/20 10:00 01/05/20 08:42 Enoxaparin Sodium 40 Mg/0.4 Ml Syringe SUBCUT 40 mg Q24H BESSIE Administration Furosemide 40 mg 01/04/20 09:00 01/05/20 08:43 Furosemide 40 Mg Tablet PO 40 mg DAILY BESSIE Administration Protocol Ceftriaxone Sodium 1 gm/ 50 mls @ 100 mls/hr 01/03/20 22:00 01/04/20 23:42 Sodium Chloride IV Infused Q24H BESSIE Infusion Azithromycin 500 mg/ Sodium 250 mls @ 125 mls/hr 01/03/20 21:00 01/05/20 00:28 Chloride IV Infused Q24H BESSIE Infusion Diltiazem HCl 125 mg/ Sodium 125 mls @ 0 mls/hr 01/03/20 21:30 01/04/20 12:34 Chloride IVCONT Infused .Q0M BESSIE Titration Protocol Per Protocol Insulin Glargine 5 unit 01/04/20 21:00 01/04/20 22:22 Insulin Glargine,Hum.Rec.Anlog 100 Unit/Ml 10 Ml Vial SUBCUT 1 unit BEDTIME BESSIE Administration Omeprazole 40 mg 01/04/20 09:00 01/05/20 08:43 Omeprazole 40 Mg Capsule.Dr PO 40 mg DAILY BESSIE Administration Oxycodone HCl 10 mg 01/04/20 12:00 01/05/20 11:12 Oxycodone Hcl Immed Release 5 Mg Tablet PO 10 mg Q6H BESSIE Administration Oxycodone HCl 5 mg 01/04/20 16:15 Oxycodone Hcl Immed Release 5 Mg Tablet PO Q6H PRN Pain, Mild (Pain Scale 1-3) Pravastatin Sodium 80 mg 01/04/20 09:00 01/05/20 08:43 Pravastatin Sodium 80 Mg Tablet PO 80 mg DAILY BESSIE Administration Tamsulosin HCl 0.4 mg 01/04/20 09:00 01/05/20 08:43 Tamsulosin Hcl 0.4 Mg Capsule PO 0.4 mg DAILY BESSIE Administration Warfarin Sodium 6 mg 01/05/20 18:00 Warfarin Sodium 6 Mg Tablet PO DAILY@1800 BESSIE Time Spent With Patient Time: Total time spent is greater than 50% in coordination of care (as documented) at patient's floor/unit and/or counseling patient: Time with patient: 15 - 24 minutes
--- NOTE | 2020-01-05 16:24 | P.PNIM_ITS ---
Subjective Subjective Date of Service: 01/05/20 Interval History: AFib Review of Systems Denies any chest pain shortness of breath or abdominal pain or fever. Physical Exam Vital Signs: Vital Signs: Vital Signs Temp Pulse Pulse Resp BP Pulse Ox 01/05/20 15:14 99.8 F 59 20 115/60 94 01/05/20 11:05 98.8 F 62 20 115/53 L 92 01/05/20 08:43 72 117/61 01/05/20 08:00 103 H 01/05/20 07:45 99.2 F 72 18 117/61 94 01/05/20 04:00 98.8 F 72 18 104/58 L 96 01/04/20 23:37 98.9 F 79 18 125/71 95 01/04/20 22:21 91 140/69 H 01/04/20 19:26 97.1 F 78 18 145/70 H 93 01/04/20 16:55 113 H 127/63 Body Mass Index 37.0 Physical exam: Cvs: rrr, [id number]. res: clear to auscultation . abd: no rebound or guarding ,nt, bs present. ext pulses present , no cyanosis ,left knee area : no discharge or erythema neuro: axo3 , nonfocal. Objective Data Current Medications Generic Name Dose Route Start Last Admin Trade Name Dereckq PRN Reason Stop Dose Admin Acetaminophen 650 mg 01/03/20 19:26 01/03/20 19:57 Acetaminophen 325 Mg Tablet PO 650 mg Q6H PRN Administration Pain and Fever Albuterol Sulfate 2.5 mg 01/03/20 08:36 Albuterol Sulfate (0.083%) 2.5 Mg/3 Ml Vial.Neb INHALE ONCE PRN Shortness of Breath/Wheezing Carvedilol 12.5 mg 01/04/20 21:00 01/05/20 08:43 Carvedilol 12.5 Mg Tablet PO 12.5 mg BID BESSIE Administration Protocol Digoxin 0.25 mg 01/04/20 16:30 01/05/20 08:43 Digoxin 0.25 Mg Tablet PO 0.25 mg DAILY BESSIE Administration Diltiazem HCl 240 mg 01/04/20 16:30 01/05/20 08:43 Diltiazem Hcl Cd 240 Mg Cap.Er.Deg PO 240 mg DAILY BESSIE Administration Protocol Enoxaparin Sodium 40 mg 01/04/20 10:00 01/05/20 08:42 Enoxaparin Sodium 40 Mg/0.4 Ml Syringe SUBCUT 40 mg Q24H BESSIE Administration Furosemide 40 mg 01/04/20 09:00 01/05/20 08:43 Furosemide 40 Mg Tablet PO 40 mg DAILY BESSIE Administration Protocol Ceftriaxone Sodium 1 gm/ 50 mls @ 100 mls/hr 01/03/20 22:00 01/04/20 23:42 Sodium Chloride IV Infused Q24H BESSIE Infusion Azithromycin 500 mg/ Sodium 250 mls @ 125 mls/hr 01/03/20 21:00 01/05/20 00:28 Chloride IV Infused Q24H BESSIE Infusion Diltiazem HCl 125 mg/ Sodium 125 mls @ 0 mls/hr 01/03/20 21:30 01/04/20 12:34 Chloride IVCONT Infused .Q0M BESSIE Titration Protocol Per Protocol Insulin Glargine 5 unit 01/04/20 21:00 01/04/20 22:22 Insulin Glargine,Hum.Rec.Anlog 100 Unit/Ml 10 Ml Vial SUBCUT 1 unit BEDTIME BESSIE Administration Omeprazole 40 mg 01/04/20 09:00 01/05/20 08:43 Omeprazole 40 Mg Capsule.Dr PO 40 mg DAILY BESSIE Administration Oxycodone HCl 10 mg 01/04/20 12:00 01/05/20 11:12 Oxycodone Hcl Immed Release 5 Mg Tablet PO 10 mg Q6H BESSIE Administration Oxycodone HCl 5 mg 01/04/20 16:15 Oxycodone Hcl Immed Release 5 Mg Tablet PO Q6H PRN Pain, Mild (Pain Scale 1-3) Pravastatin Sodium 80 mg 01/04/20 09:00 01/05/20 08:43 Pravastatin Sodium 80 Mg Tablet PO 80 mg DAILY BESSIE Administration Tamsulosin HCl 0.4 mg 01/04/20 09:00 01/05/20 08:43 Tamsulosin Hcl 0.4 Mg Capsule PO 0.4 mg DAILY BESSIE Administration Warfarin Sodium 6 mg 01/05/20 18:00 Warfarin Sodium 6 Mg Tablet PO DAILY@1800 [facility] Labs CBC & Chem 7: 01/05/20 05:47 01/03/20 20:25 Microbiology Microbiology Results: Microbiology 01/03/20 21:38 Blood - Venous Blood Culture - Preliminary No growth after 24 hours. 01/03/20 21:38 Blood - Venous Blood Culture - Preliminary No growth after 24 hours. Assessment and Plan (1) Chronic a-fib: Status: Acute (2) Osteoarthritis of left knee: Status: Acute Assessment and Plan: 1.Left total knee arthroplasty. Pain management. Incentive Eva Bowel regimen 2.Acute hypoxic respiratory failure secondary to CAP vs aspiration. sepsis cash improving wbc increasing, fever is also improved Continue IV antibiotic, blood culture negative at 24hrs. 3.Atrial fibrillation with rapid ventricular response. : Seems better, continue carvedilol, digoxin and diltiazem at home as well as warfarin, hold for now. 4.Heart failure. bnp seems improving continue lasix 5.Diabetes mellitus. fs runninh 150-200 continue fs with coverage , avoid coverage below 200 mg/dL. 6.GERD. Continue PPI. 7.Hyperlipidemia. Continue statin. 8. BPH. Continue tamsulosin. DVT prophylaxis as per surgical team. on warfarin at home atrial fibrillation.
--- NOTE | 2020-01-05 16:43 | W.PM.IDCN ---
History of Present Illness Data of Consult Service Date: 01/05/20 Requesting physician: Anthony Arellano Primary Care Provider: Darien Bruner MD HPI Reason for consult: possible infection Patient was admitted He developed fever and increased respiratory rate He was started on Ceftriaxone and Zmax CXR unremarkable Review of Systems Review of Systems: Yes Unobtainable due to mental condition PMFSH Past Medical History Medical History Anemia Atrial fibrillation BPH (benign prostatic hyperplasia) COPD (chronic obstructive pulmonary disease) Deafness in left ear Diabetes GERD (gastroesophageal reflux disease) Hard of hearing History of amputation of toe Obesity JUDIE (obstructive sleep apnea) Osteoarthritis Peripheral edema Venous stasis Surgical History Surgical History History of bilateral hip replacements Hx of colonoscopy Hx of total knee arthroplasty Hx of total shoulder replacement Uses cochlear implant Social History Social History Household Members: Spouse Housing: House Alcohol intake: never Smoking Status: Former smoker Second Hand Smoke Exposure: No Advance Directives Date on File: 12/31/19 service: No 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al status: retired Meds Allergies Allergy/AdvReac Type Severity Reaction Status Date / Time Penicillins [PENICILLINS] Allergy Intermediate rash- Verified 12/31/19 14:04 STATES BAD RXN CHILD penicillin V Allergy Unknown RASH Verified 12/31/19 14:04 Home Medications Medication Instructions Recorded Confirmed Type Lantus Solostar U-100 Insulin 30 unit SUBCUT BEDTIME 12/31/19 12/31/19 History carvedilol 12.5 mg PO BID 12/31/19 01/04/20 History digoxin 250 mcg PO DAILY 12/31/19 01/04/20 History diltiazem HCl 240 mg PO DAILY 12/31/19 01/04/20 History furosemide 40 mg PO DAILY 12/31/19 01/04/20 History glipizide 10 mg PO BIDWM 12/31/19 01/04/20 History metformin 1,500 mg PO DAILY 12/31/19 01/04/20 History omeprazole 40 mg PO DAILY 12/31/19 01/04/20 History pravastatin 80 mg PO DAILY 12/31/19 01/04/20 History tamsulosin 0.4 mg PO DAILY@1700 12/31/19 01/04/20 History Physical Exam Vital Signs: Vital Signs: Vital Signs Temp Pulse Pulse Resp BP Pulse Ox 01/05/20 15:14 99.8 F 59 20 115/60 94 01/05/20 11:05 98.8 F 62 20 115/53 L 92 01/05/20 08:43 72 117/61 01/05/20 08:00 103 H 01/05/20 07:45 99.2 F 72 18 117/61 94 01/05/20 04:00 98.8 F 72 18 104/58 L 96 01/04/20 23:37 98.9 F 79 18 125/71 95 01/04/20 22:21 91 140/69 H 01/04/20 19:26 97.1 F 78 18 145/70 H 93 01/04/20 16:55 113 H 127/63 Body Mass Index 37.0 Const: General: cooperative HENMT: Head: Yes normal to inspection Resp: Effort & Inspection: respiratory distress Cardio: Rate: tachycardic Rhythm: regular rhythm GI: Inspection: Yes normal to inspection Skin: General skin exam: no rashes or lesions noted Assessment and Plan (1) Chronic a-fib: (2) Status post total left knee replacement: Problem details: Mr. Pang presented to the office for ongoing left knee pain. He was found to have Oa of the left knee , he failed all conservative measures and continued to have difficulty with daily activities; therefore, he consented to move forward with LT TKA. Status: Acute There is concern over fever and leukocytosis postop Patient has increased rr ,possible aspiration Suggest Zosyn Hold CTX and Zmax Results Labs CBC & Chem 7: 01/06/20 05:41 01/03/20 20:25 Labs: Short CBC 01/05/20 Range/Units 05:47 WBC 22.3 H (4.8-10.8) X10*3/uL Hgb 10.2 L D (14.0-18.0) g/dl Hct 31.7 L D (42-52) % Plt Count 99 L D (160-400) X10*3/uL Microbiology Microbiology Results: Microbiology 01/03/20 21:38 Blood - Venous Blood Culture - Preliminary No growth after 24 hours. 01/03/20 21:38 Blood - Venous Blood Culture - Preliminary No growth after 24 hours.
[2020-01-05 16:48] LABS: Glucose, Whole Blood 202 mg/dL (60-115)
[2020-01-05] MEDS: Warfarin Sodium 6 MG TABLET PO (17:25)
[2020-01-05 19:57] LABS: Glucose, Whole Blood 179 mg/dL (60-115)
[2020-01-05] MEDS: Azithromycin 500 MG in 0.9 % Sodium Chloride 250 ML 125 MG IV (20:37)
[2020-01-05] MEDS: Insulin Glargine,Hum.rec.anlog 100 UNIT/ML 10 ML VIAL SUBCUT (20:42)
[2020-01-05] MEDS: cefTRIAXone sodium 1 GM in 0.9 % Sodium Chloride 50 ML IV (20:53)
[2020-01-06 03:48] VITALS: BP 99/56; PULSE 56; RESP 18; TEMP 35.8; O2SAT 96
[2020-01-06] MEDS: oxyCODONE HCl Immed Release 5 MG TABLET 10 MG PO ×2 (06:00→13:00)
[2020-01-06 06:31] LABS: Hematocrit 30.8 % (42-52); Hemoglobin 10.1 g/dl (14.0-18.0); Mean Corpuscular HGB Conc 32.8 g/dl (31.0-36.0); Mean Corpuscular Hemoglobin 31.3 pg (27.0-33.0); Mean Corpuscular Volume 95.4 fL (80-98); Mean Platelet Volume 11.9 fL (9.4-12.4); NRBC Pct Auto 0.1 /100WBC (0.0-0.2); Platelet Count 106 X10*3/uL (160-400); Red Blood Count 3.23 X10*6/uL (4.60-5.80); Red Cell Distribution Width 14.5 % (11.0-16.0); White Blood Count 16.9 X10*3/uL (4.8-10.8)
[2020-01-06 07:47] LABS: Glucose, Whole Blood 160 mg/dL (60-115)
[2020-01-06 08:00] VITALS: BP 118/57; PULSE 87; RESP 18; TEMP 36.6; O2SAT 92
[2020-01-06 09:04] LABS: INTERNATIONAL NORM RATIO 1.2 (0.9-1.1); Prothrombin Time 13.7 SEC (10.8-13.0)
[2020-01-06] MEDS: Enoxaparin Sodium 40 MG/0.4 ML SYRINGE SUBCUT (09:29)
[2020-01-06 09:30] VITALS: BP 111/63; PULSE 80
[2020-01-06] MEDS: carvediloL 12.5 MG TABLET PO (09:30)
[2020-01-06 09:31] VITALS: BP 111/63; PULSE 80
[2020-01-06] MEDS: Digoxin 0.25 MG TABLET PO (09:31)
[2020-01-06] MEDS: Pravastatin Sodium 80 MG TABLET PO (09:31)
[2020-01-06] MEDS: Furosemide 40 MG TABLET PO (09:31)
[2020-01-06] MEDS: dilTIAZem HCL CD 240 MG CAP.ER.DEG PO (09:31)
[2020-01-06] MEDS: Omeprazole 40 MG CAPSULE.DR PO (09:31)
[2020-01-06] MEDS: Tamsulosin HCL 0.4 MG CAPSULE PO (09:49)
[2020-01-06 11:33] LABS: Glucose, Whole Blood 217 mg/dL (60-115)
[2020-01-06 12:00] VITALS: BP 110/95; PULSE 64; RESP 18; TEMP 36.3; O2SAT 95
--- NOTE | 2020-01-06 12:38 | MHC.CM.PN ---
DC today with [facility] for AC therapy management and education. transporting to home.
--- NOTE | 2020-01-06 13:07 | P.DS_ITS ---
DS: Providers Provider Date of admission: 01/03/20 06:26 Primary care physician: Darien Bruner MD Consults: 01/03/20 18:15 Consult to Hospitalist Routine Consulting Provider: Hospitalist Reason for consultation: medical managment 01/04/20 16:20 Consult to Infectious Diseases Routine Consulting Provider: Diana Mendoza Reason for consultation: SEPSIS? pneumonia Has provider been notified: No DS: Diagnosis Discharge Diagnosis (1) Status post total left knee replacement: Status: Acute Problem details: Mr. Pang presented to the office for ongoing left knee pain. He was found to have Oa of the left knee , he failed all conservative measures and continued to have difficulty with daily activities; therefore, he consented to move forward with LT TKA. DS: Summary Hospital Course Hospital Course: Mr Pang underwent a successful left total knee arthroplasty was transferred to PACU and then to the floor where he recovered during his stay his vitals were stable. Postop day 0 he had at temperature postoperatively at 01:02 0.9, postop day 1 it went down to 97.7 and on discharge it was 97.4. Labs remained unremarkable. Chest x-ray was negative for any consolidation. Dr. Mendoza was consulted per Medicine and suggested Augmentin for aspiration pneumonia. Patient was started on Coumadin and Lovenox postop day 1. On discharge INR 1.2. Prior to discharge Aquacel dressing changed incision clean dry and intact new Aquacel dressing applied and this plan is to be discharged home with VNA services Time Spent with Patient Time attestation: Total time spent providing and/or coordinating discharge services: Time spent: Greater than 30 minutes Physical Exam Vital Signs: Vital Signs: Vital Signs Temp Pulse Resp BP Pulse Ox 01/06/20 12:00 97.4 F 64 18 110/95 H 95 01/06/20 09:31 80 111/63 01/06/20 09:30 80 111/63 01/06/20 08:00 97.8 F 87 18 118/57 L 92 01/06/20 03:48 96.5 F L 56 18 99/56 L 96 01/05/20 23:52 97.8 F 54 18 100/57 L 91 L 01/05/20 20:42 78 105/56 L 01/05/20 19:30 99.6 F 78 20 105/56 L 92 01/05/20 15:14 99.8 F 59 20 115/60 94 Body Mass Index 37.0 Const: General: cooperative, healthy appearing and no acute distress Resp: Effort & Inspection: normal respiratory effort and able to speak in complete sentences Cardio: Rate: regular rate Peripheral pulses: Peripheral pulses 2+ throughout GI: Inspection: Yes normal to inspection Palpation (GI): Soft to palpation Skin: General skin exam: no rashes or lesions noted Extrem: Other: Left knee incision clean dry and intact. No erythema or drainage. My swelling. Calf supple nontender. DS: Data Data Completed and Pending Completed studies during hospitalization [Text1]: Pending at discharge 01/03/20 12:12 Surgical [PTH] Routine Labs on day of discharge: Labs from last 24 hours 01/06/20 01/06/20 01/06/20 11:28 08:42 07:38 WBC RBC Hgb Hct MCV MCH MCHC RDW Plt Count MPV Absolute Nucleated RBC Nucleated RBC % (auto) PT 13.7 H INR 1.2 H POC Glucose 217 H 160 H 01/06/20 01/05/20 01/05/20 05:41 19:52 16:43 WBC 16.9 H RBC 3.23 L Hgb 10.1 L Hct 30.8 L MCV 95.4 MCH 31.3 MCHC 32.8 RDW 14.5 Plt Count 106 L MPV 11.9 Absolute Nucleated RBC 0.020 H Nucleated RBC % (auto) 0.1 PT INR POC Glucose 179 H 202 H Preliminary micro results at discharge 01/03/20 21:38 Blood Culture - Preliminary Blood - Venous No growth after 48 hours. 01/03/20 21:38 Blood Culture - Preliminary Blood - Venous No growth after 48 hours. Discharge Plan Discharge Patient Disposition: Home Health Service Referrals: [facility] [Other] ([facility] will provide homecare services. Anticoagulation Management and education) Darien Bruner MD [Primary Care Provider] - Racheal Christie PA-C [Physician [place] Worker] - Discharge Medications: New acetaminophen 325 mg Tablet 650 mg PO Q6H PRN (Reason: Pain And Fever) 30 Days Qty: 240 RF: 0 oxycodone 5 mg Tablet 5 mg PO Q6H PRN (Reason: Pain, Mild (Pain Scale 1-3)) 7 Days Qty: 28 RF: 0 enoxaparin 40 mg/0.4 mL Syringe 40 mg subcut Q24H 30 Days Qty: 12 RF: 0 Continued furosemide 40 mg tablet 40 mg PO DAILY RF: 0 carvedilol 12.5 mg tablet 12.5 mg PO BID RF: 0 diltiazem HCl 240 mg capsule,extended release 24hr 240 mg PO DAILY RF: 0 glipizide 5 mg tablet extended release 24hr 10 mg PO BIDWM RF: 0 digoxin 250 mcg (0.25 mg) tablet 250 mcg PO DAILY RF: 0 omeprazole 40 mg capsule,delayed release(DR/EC) 40 mg PO DAILY RF: 0 pravastatin 80 mg tablet 80 mg PO DAILY RF: 0 tamsulosin 0.4 mg capsule 0.4 mg PO DAILY@1700 RF: 0 metformin 500 mg tablet extended release 24 hr 1,500 mg PO DAILY RF: 0 Lantus Solostar U-100 Insulin 100 unit/mL (3 mL) insulin pen 30 unit subcut BEDTIME RF: 0 warfarin 2 mg tablet 2 mg PO DAILY Qty: 90 RF: 0 warfarin 4 mg tablet 4 mg PO DAILY Qty: 90 RF: 0 Discontinued oxycodone 5 mg tablet 5 mg PO Q6H PRN (Reason: Pain) RF: 0 Discharge Orders: Discharge Order (Routine); Ordered 01/06/20 Ordered By: Racheal Christie Diet: regular diet Activity on Discharge: Use cane or walker Activity Restrictions/Additional Instructions: * Physical Therapy for ROM 0-120, quad strength, gait training . Use walker for ambulation * Limit stair climbing, No shower, No tub bath, No driving * Continue Lovenox until INR therapeutic been DC Lovenox and continue warfarin * Keep Aquacel dressing clean, dry and intact. * Follow up with orthopedics in 2 weeks Visit Report Forms: Patient Portal Discharge page Care Plan Goals: Restore function of left knee Health Concerns: None Plan of Treatment: Physical Therapy Pain management DVT prophylaxis
--- NOTE | 2020-01-06 13:57 | HO.PM.IMPN ---
Subjective Subjective Date of Service: 01/06/20 Interval History: ? probable pneumonia Review of Systems Patient denies any shortness of breath or cough or nausea vomiting or fever. Physical Exam Vital Signs: Vital Signs: Vital Signs Temp Pulse Resp BP Pulse Ox 01/06/20 12:00 97.4 F 64 18 110/95 H 95 01/06/20 09:31 80 111/63 01/06/20 09:30 80 111/63 01/06/20 08:00 97.8 F 87 18 118/57 L 92 01/06/20 03:48 96.5 F L 56 18 99/56 L 96 01/05/20 23:52 97.8 F 54 18 100/57 L 91 L 01/05/20 20:42 78 105/56 L 01/05/20 19:30 99.6 F 78 20 105/56 L 92 01/05/20 15:14 99.8 F 59 20 115/60 94 Body Mass Index 37.0 Physical exam: Cvs: rrr, [id number] , no murmur res: clear to auscultation ,no rhonchii or wheezing abd: no rebound or guarding ,nt, bs present. ext pulses present , no cyanosis Left knee area seems better swelling improving no erythema or discharge. neuro: axo3 , nonfocal. Objective Data Current Medications Generic Name Dose Route Start Last Admin Trade Name Freq PRN Reason Stop Dose Admin Acetaminophen 650 mg 01/03/20 19:26 01/03/20 19:57 Acetaminophen 325 Mg Tablet PO 650 mg Q6H PRN Administration Pain and Fever Albuterol Sulfate 2.5 mg 01/03/20 08:36 Albuterol Sulfate (0.083%) 2.5 Mg/3 Ml Vial.Neb INHALE ONCE PRN Shortness of Breath/Wheezing Carvedilol 12.5 mg 01/04/20 21:00 01/06/20 09:30 Carvedilol 12.5 Mg Tablet PO 12.5 mg BID BESSIE Administration Protocol Digoxin 0.25 mg 01/04/20 16:30 01/06/20 09:31 Digoxin 0.25 Mg Tablet PO 0.25 mg DAILY BESSIE Administration Diltiazem HCl 240 mg 01/04/20 16:30 01/06/20 09:31 Diltiazem Hcl Cd 240 Mg Cap.Er.Deg PO 240 mg DAILY BESSIE Administration Protocol Enoxaparin Sodium 40 mg 01/04/20 10:00 01/06/20 09:29 Enoxaparin Sodium 40 Mg/0.4 Ml Syringe SUBCUT 40 mg Q24H BESSIE Administration Furosemide 40 mg 01/04/20 09:00 01/06/20 09:31 Furosemide 40 Mg Tablet PO 40 mg DAILY BESSIE Administration Protocol Ceftriaxone Sodium 1 gm/ 50 mls @ 100 mls/hr 01/03/20 22:00 01/05/20 21:42 Sodium Chloride IV Infused Q24H BESSIE Infusion Azithromycin 500 mg/ Sodium 250 mls @ 125 mls/hr 01/03/20 21:00 01/05/20 22:38 Chloride IV Infused Q24H BESSIE Infusion Diltiazem HCl 125 mg/ Sodium 125 mls @ 0 mls/hr 01/03/20 21:30 01/04/20 12:34 Chloride IVCONT Infused .Q0M BESSIE Titration Protocol Per Protocol Insulin Glargine 5 unit 01/04/20 21:00 01/05/20 20:42 Insulin Glargine,Hum.Rec.Anlog 100 Unit/Ml 10 Ml Vial SUBCUT 5 unit BEDTIME BESSIE Administration Omeprazole 40 mg 01/04/20 09:00 01/06/20 09:31 Omeprazole 40 Mg Capsule.Dr PO 40 mg DAILY BESSIE Administration Oxycodone HCl 10 mg 01/04/20 12:00 01/06/20 13:00 Oxycodone Hcl Immed Release 5 Mg Tablet PO 10 mg Q6H BESSIE Administration Oxycodone HCl 5 mg 01/04/20 16:15 Oxycodone Hcl Immed Release 5 Mg Tablet PO Q6H PRN Pain, Mild (Pain Scale 1-3) Pravastatin Sodium 80 mg 01/04/20 09:00 01/06/20 09:31 Pravastatin Sodium 80 Mg Tablet PO 80 mg DAILY BESSIE Administration Tamsulosin HCl 0.4 mg 01/07/20 17:30 Tamsulosin Hcl 0.4 Mg Capsule PO DAILY@1730 [facility] Warfarin Sodium 6 mg 01/05/20 18:00 01/05/20 17:25 Warfarin Sodium 6 Mg Tablet PO 6 mg DAILY@1800 [facility] Administration Labs CBC & Chem 7: 01/06/20 05:41 01/03/20 20:25 Microbiology Microbiology Results: Microbiology 01/03/20 21:38 Blood - Venous Blood Culture - Preliminary No growth after 48 hours. 01/03/20 21:38 Blood - Venous Blood Culture - Preliminary No growth after 48 hours. Assessment and Plan (1) Chronic a-fib: Status: Acute (2) Osteoarthritis of left knee: Status: Acute Assessment and Plan: 1.Left total knee arthroplasty. Pain management. Incentive [place] Bowel regimen 2.Acute hypoxic respiratory failure secondary to CAP vs aspiration. Patient fever, WBC all improving Blood culture negative Initially was started on ceftriaxone and azithromycin. Discussed with ID: Patient recommended to start on p.o. Ceftin upon discharge. 3.Atrial fibrillation with rapid ventricular response. : Seems better, continue carvedilol, digoxin and diltiazem at home as well as warfarin, hold for now. 4.Heart failure. bnp seems improving continue lasix 5.Diabetes mellitus. continue fs with coverage , avoid coverage below 200 mg/dL. 6.GERD. Continue PPI. 7.Hyperlipidemia. Continue statin. 8. BPH. Continue tamsulosin. DVT prophylaxis as per surgical team. on warfarin at home atrial fibrillation. Above management discussed with ID and the surgical team in detail, we will sign off now and please call us for any further questions.
--- NOTE | 2020-01-06 15:22 | MHC.INPTTRAN ---
Patient admitted for s/p left [place] [facility] [place]ib during [place]. Shortly after surgery went into Afib RVR, initially started on Cardizem drip, now on Cardizem po. CXR showed pneumonia treated with IV antibiotics, now to continue by mouth antibiotics. Patient A&O x3, vss, walks with a walker. Dressing to left knee, C/D/I . To be discharged with VNA services .
--- NOTE | 2020-01-07 16:17 | OP_ITS ---
SURGEON: Veronica Morrow MD PREOPERATIVE DIAGNOSIS: Osteoarthritis, left knee. POSTOPERATIVE DIAGNOSIS: Osteoarthritis, left knee. PROCEDURE PERFORMED: Left total knee arthroplasty - Miguel Nex[employer] CR-Flex size G, left femur, 6 x 10 mm monoblock tibial component, 32 mm monoblock patellar component. ESTIMATED BLOOD LOSS: COMPLICATIONS: ANESTHESIA: ASSISTANTS: LEESA Lainez. SPECIMENS: CLINICAL NOTE: This gentleman had undergone a right total knee arthroplasty successfully in the past, returns with similar findings and problems involving his left knee. Therefore, after explaining the risks, benefits, and alternatives and answering all his questions, it was mutually agreed upon to carry out the following. DESCRIPTION OF PROCEDURE: Under a spinal and regional anesthetic, the patient was placed supine on the operating table. Pneumatic tourniquet cuff was placed around the upper left thigh, inflated to 300 mmHg at the beginning of the case. The left knee was then prepped and draped in standard fashion with the left leg free. Surgical time-out was then performed. The patient was identified, procedure confirmed, site confirmed. Medical analogy and history reviewed. Preoperative antibiotics were given. Standard DVT prophylaxis was in place. Tranexamic acid was given as well. All other items were discussed and agreed upon. Standard midline approach to the knee was carried out, taken down through subcutaneous tissues. Hemostasis was achieved along the way using electrocautery, brought us down to the level of the extensor mechanism, where a medial parapatellar arthrotomy in a subvastus technique was then performed. The patella was retracted to lateral gutter. The soft tissues were then elevated subperiosteally from the anterior aspect of the femur. At the level of the tibia, the soft tissues were elevated medially with a portion of the medial meniscus excised, protecting medial-sided soft tissues. Similarly on the lateral side, portion of the meniscus was excised, portion of the fat pad and soft tissue elevated, protecting the lateral-sided soft tissues. There was no ACL present and therefore, we turned our attention to the femur. Standard intramedullary hole was established. Cutting guide was set for a 7 degrees of valgus with a standard cut. It was held in place and following this, the distal femur was resected to a flat surface. Following this, the sizer was used to size to a G. The 3 degree external rotation pins were set. Following this, the all-in-one guide for the size G was centered over the distal cut and the pins and following this, the anterior and anterior chamfer, posterior and posterior chamfer, and patellar recess cuts were made. Lug holes were made. The guide was removed. All the bony fragments were removed and we turned our attention to the tibia. Extramedullary guide was used in standard fashion. The slope was set. It was referenced from the tibial tubercle, subcutaneous port of the tibia, and the middle of the ankle. Initially, it was set for a very minimal resection off the lateral side. It was resected flat. With this resection, there was still a deficit at the posterolateral corner. Therefore, a further 2 mm was resected using the guide. This brought us to a flush surface. The trial reduction was then performed using the size G left CR-Flex femur and a 6 x 10 mm tibial tray with a 10 mm liner. The knee was then placed through range of motion, had excellent alignment, full range of motion, and was stable mediolaterally through the arc of motion. The patella did track centrally. Turning our attention to patella. Soft tissues elevated circumferentially. Osteophytes were removed. It was resected flat. It sized to a 32. The guide was used. The lug hole made. The trial component put into place. The knee then demonstrated full extension, full flexion, stable mediolaterally at 0, 30, 60, and 90 degrees of flexion and the patella tracked centrally. Therefore, the size G CR-Flex femur with the 6 x 10 mm monoblock tibial component, 32 mm monoblock patellar component was brought up on to the table. The trial components were all removed after the peg holes of the tibia was made. The tourniquet was let down. Total tourniquet time was 57 minutes. The area of lateral geniculate artery was identified. There was no significant bleeding anywhere. The knee was then thoroughly irrigated. Permanent components were brought up on the table. The tibia followed by the femur, followed by the patella were all successfully press-fit into place. The knee was then again placed through range of motion, had full extension, full flexion, stable mediolaterally in all position and the patella tracked centrally. Therefore, we proceeded to closure. Wound was thoroughly irrigated. The extensor mechanism was closed with #2 Quill suture. Skin approximated using interrupted 2-0 Dexon. Skin was closed with kory. Sterile dressing was then applied. The patient then was transferred supine to the room bed and then taken to recovery room in good condition. Intraoperatively, there was approximately 50 mL blood loss. No intraoperative transfusions or complications. MD DONNA Salinas/JURGEN / [id number]
== END 2020-01-06 19:48 | disposition home health service (06) | DRG 302 ==
LOC: HO.SSSA 08:55 → HO.IMC 15:35
PROVIDERS: Internal Medicine; Nurse Practitioner Acute Care; Physician Assistant; Admitting Provider Orthopaedic Surgery; PCP Internal Medicine; Visit Provider Orthopaedic Surgery
PROC: 0SRD0JA Replacement of Left Knee Joint with Synthetic Substitute, Uncemented, Open Approach (ICD-10-PCS; CPT 27447; principal; 2020-01-03 10:00)
DX: M17.12 Unilateral primary osteoarthritis, left knee (principal); J95.821 Acute postprocedural respiratory failure; J69.0 Pneumonitis due to inhalation of food and vomit; J44.9 Chronic obstructive pulmonary disease, unspecified; I48.91 Unspecified atrial fibrillation; K21.9 Gastro-esophageal reflux disease without esophagitis; N40.0 Benign prostatic hyperplasia without lower urinary tract symptoms; Z20.828 Contact with and (suspected) exposure to other viral communicable diseases; E66.9 Obesity, unspecified; E78.5 Hyperlipidemia, unspecified; G47.33 Obstructive sleep apnea (adult) (pediatric); I50.9 Heart failure, unspecified; Z68.37 Body mass index [BMI] 37.0-37.9, adult; Z87.891 Personal history of nicotine dependence; Z88.0 Allergy status to penicillin; Z79.4 Long term (current) use of insulin; Z79.01 Long term (current) use of anticoagulants; Z79.899 Other long term (current) drug therapy
CPT/HCPCS: 36415; 71045; 73560; 80048; 81001; 81003; 82947; 83605; 83880; 85025; 85027; 85610; 86850; 86900; 86901; 87040; 87635; 88305; 88311; 93005; 97110; 97116; 97161; C1776; J0456; J0696; J1170; J1650; J1940; J2270; J3370

== ENCOUNTER 2020-01-10 15:24 | Emergency (ER) | payer OTHER, SELFPAY ==
[2020-01-10 15:27] VITALS: BP 147/70; PULSE 66; RESP 18; TEMP 36.4; O2SAT 97; BMI 37.2
--- NOTE | 2020-01-10 16:38 | ED_ITS ---
HPI - General Adult General Chief complaint: General Medical Stated complaint: knee pain Time Seen by Provider: 01/10/20 16:20 Source: patient Mode of arrival: ambulatory Limitations: no limitations History of Present Illness HPI narrative: Patient comes to the emergency room complaining of passing stones when he urinates. Patient states he has had no pain. Patient was recently discharged on January 05 from the hospital for a left-sided knee replacement and atrial fibrillation for which she is now on Coumadin. Patient states he has no knee pain, he has been doing well with physical therapy, no signs of in fection, no fever. Patient has no shortness of breath and no chest pain. Patient states over the last 2 days he passed 2 stones, has not had any difficulty urinating, no flank pain. MD complaint: Renal stones Related Data Home Medications Medication Instructions Recorded Confirmed Lantus Solostar U-100 Insulin 30 unit SUBCUT BEDTIME 12/31/19 12/31/19 carvedilol 12.5 mg PO BID 12/31/19 01/04/20 digoxin 250 mcg PO DAILY 12/31/19 01/04/20 diltiazem HCl 240 mg PO DAILY 12/31/19 01/04/20 furosemide 40 mg PO DAILY 12/31/19 01/04/20 glipizide 10 mg PO BIDWM 12/31/19 01/04/20 metformin 1,500 mg PO DAILY 12/31/19 01/04/20 omeprazole 40 mg PO DAILY 12/31/19 01/04/20 pravastatin 80 mg PO DAILY 12/31/19 01/04/20 tamsulosin 0.4 mg PO DAILY@1700 12/31/19 01/04/20 Previous Rx's Medication Instructions Recorded warfarin 2 mg tablet 2 mg PO DAILY #90 tab 12/23/19 warfarin 4 mg tablet 4 mg PO DAILY #90 tab 12/23/19 acetaminophen 650 mg PO Q6H PRN 30 Days #240 tab 01/06/20 enoxaparin 40 mg SUBCUT Q24H 30 Days #12 ml 01/06/20 oxycodone 5 mg PO Q6H PRN 7 Days #28 tab 01/06/20 cefuroxime axetil 500 mg tablet 500 mg PO BID #14 tab 01/07/20 nitrofurantoin monohyd/m-cryst 100 mg PO Q12H 7 Days #14 cap 01/10/20 [Macrobid] Allergies Allergy/AdvReac Type Severity Reaction Status Date / Time Penicillins [PENICILLINS] Allergy Intermediate rash- Verified 12/31/19 14:04 STATES BAD RXN CHILD penicillin V Allergy Unknown RASH Verified 12/31/19 14:04 Review of Systems Review of Systems: Constitutional : No Weight loss, No Fever, No Chills, No Night Sweats, No Fatigue, No Malaise ENT/Mouth : No Hearing loss, No Ear Pain, No Nasal Congestion, No Sinus Pain, No Hoarseness, No sore throat, No Rhinorrhea, No Swallowing Difficulty Eyes: No Eye Pain, No Swelling, No Redness, No Foreign Body, No Discharge, No Vision Changes Cardiovascular : No Chest Pain, No SOB, No Dyspnea on Exertion, No Orthopnea, No Edema, No Palpitations Respiratory : No Cough, No Sputum, No Wheezing, No Smoke Exposure, No Dyspnea Gastrointestinal : No Nausea, No Vomiting, No Diarrhea, No Constipation, No abdominal Pain, No Hematochezia, No Melena Genitourinary : no irregular bleeding, No Dysuria, No Urinary Frequency, No Hem aturia, No Urinary Incontinence, No Urgency, No Flank Pain, No Urinary Flow Changes, No Hesitancy Musculoskeletal : Patient's left knee is healing well, no signs of infection, states physical therapy is going well Skin : No Skin Lesions, No rash Neuro : No Weakness, No Numbness, No Paresthesias, No Loss of Consciousness, No Dizziness, No Headache Psych : No Anxiety/Panic, No Depression, No SI/HI/AH/VH, No Social Issues, Heme/Lymph: No Bruising, No Bleeding,No Lymphadenopathy Endocrine : No Polyuria, No Polydipsia, No Temperature Intolerance Yes all other systems are reviewed and are negative FORMERLY [facility], [facility] Past Medical History Medical History Anemia Atrial fibrillation BPH (benign prostatic hyperplasia) Chronic a-fib COPD (chronic obstructive pulmonary disease) Deafness in left ear Diabetes GERD (gastroesophageal reflux disease) Hard of hearing History of amputation of toe Obesity JUDIE (obstructive sleep apnea) Osteoarthritis Osteoarthritis of left knee Peripheral edema Venous stasis Surgical History History of bilateral hip replacements Hx of colonoscopy Hx of total knee arthroplasty Hx of total shoulder replacement Uses cochlear implant Social History Social History Household Members: Spouse Housing: House Alcohol intake: never Smoking Status: Never smoker Second Hand Smoke Exposure: No Use of substances other than those prescribed or required for medical reasons: No Advance Directives: Yes Advance Directives on File: Yes Advance Directives Date on File: 12/31/19 service: No 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al status: retired Physical Exam Vital Signs: Vital Signs: Vital Signs Temp Pulse Resp BP Pulse Ox 01/10/20 20:00 98.4 F 86 18 130/69 98 01/10/20 18:41 57 16 119/59 L 96 01/10/20 17:15 98.3 F 59 16 122/60 97 01/10/20 15:27 97.5 F 66 18 147/70 H 97 Body Mass Index 37.2 Appearance: Alert. Oriented X3. No acute distress. Eyes: Pupils equal, round and reactive to light. ENT: Pharynx normal. Neck: Normal inspection. Neck supple. No lymph nodes noted. No crepitus CVS: Normal heart rate and rhythm. Pulses normal. Normal S1 and S2 Respiratory: No respiratory distress. Breath sounds normal. No Wheezing. No rales Abdomen: Soft and nontender. No rigidity. No distention. good BS x4, no CVA tenderness bilaterally Skin: Skin warm and dry. Normal skin color. Normal skin turgor. Surgical incision over left knee healing well, no signs of infection Extremities: +2 bilateral lower extremity edema, no calf tenderness, no tendern ess around the surgical incision on left knee Neuro: Oriented X 3. No motor deficit. No sensory deficit. Moving all extermities. No slurred speech. Course Course Course Narrative: I discussed the labs and imaging with the patient, patient does not have kidney stones, however it seems the patient does have a urinary tract infection. Per patient, he has severe allergy to penicillin, therefore will avoid cephalosporins as well. Patient is on Coumadin, therefore fluoroquinolones and trimethoprim sulfamethoxazole will be avoided as well. Medical Decision Making Differential Diagnosis Differential Diagnosis: UTI versus kidney stones versus cystitis versus bladder neoplasm Lab Data Result diagrams: 01/10/20 16:58 01/10/20 16:58 Labs: Lab Results 11/02/20 11/02/20 11/02/20 Range/Units 16:58 16:58 17:50 WBC 13.0 H (4.8-10.8) X10*3/uL RBC 3.64 L (4.60-5.80) X10*6/uL Hgb 11.2 L (14.0-18.0) g/dl Hct 34.9 L (42-52) % MCV 95.9 (80-98) fL MCH 30.8 (27.0-33.0) pg MCHC 32.1 (31.0-36.0) g/dl RDW 14.7 (11.0-16.0) % Plt Count 265 D (160-400) X10*3/uL MPV 10.2 (9.4-12.4) fL Immature Gran % (Auto) Cancelled Neut % (Auto) Cancelled Lymph % (Auto) Cancelled [place] % (Auto) Cancelled Eos % (Auto) Cancelled Baso % (Auto) Cancelled Lymph # (Auto) Cancelled [place] # (Auto) Cancelled Eos # (Auto) Cancelled Baso # (Auto) Cancelled Abs Immat Gran (auto) Cancelled Absolute Neuts (auto) Cancelled Absolute Nucleated RBC 0.020 H (0.0-0.012) X10*3/uL Nucleated RBC % (auto) 0.2 (0.0-0.2) /100WBC Neutrophils % (Manual) 58 (45-73) % Band Neutrophils % 1 L (3-5) % Lymphocytes % (Manual) 19 L (20-40) % Monocytes % (Manual) 12 H (2-11) % Eosinophils % (Manual) 6 H (0-4) % Basophils % (Manual) 1 (0-1) % Metamyelocytes % 3 % Abs Neuts (Manual) 7.7 (2.2-7.9) X10*3/uL Lymphocytes # (Manual) 2.5 (0.6-4.8) X10*3/uL Monocytes # (Manual) 1.6 H (0.0-1.2) X10*3/uL Eosinophils # (Manual) 0.8 (0.0-0.8) X10*3/UL Basophils # (Manual) 0.1 (0.0-0.3) X10*3/uL Metamyelocytes # 0.4 X10*3/uL Platelet Estimate NORMAL (NORMAL) Plt Morphology Comment NORMAL RBC Morphology NORMAL Polychromasia 1+ PT (10.8-13.0) SEC INR (0.9-1.1) Sodium 143 (135-145) mmol/L Potassium 5.0 (3.3-5.1) mmol/l Chloride 104 (96-108) mmol/L Carbon Dioxide 30 H (22-29) mmol/L Anion Gap 14 (12-20) BUN 24 H (9-16) mg/dL Creatinine 1.00 (0.5-1.4) mg/dL Estim Creat Clear Calc 86.6 Estimated GFR > 60 POC Glucose (60-115) mg/dL Random Glucose 41 L* (60-115) mg/dL Calcium 8.0 L (8.4-10.2) mg/dL Urine Color YELLOW Urine Appearance CLEAR Urine pH 5.5 (5.0-8.0) Ur Specific [place] 1.020 (1.005-1.025) Urine Protein NEG (NEG-TRACE) MG/DL Urine Glucose (UA) NEG (NEG) MG/DL Urine Ketones NEG (NEG) MG/DL Urine Blood 2+ H (NEG) Urine Nitrite NEG (NEG) Ur Leukocyte Esterase 1+ H (NEG) Urine RBC 0-2 (0) /HPF Urine WBC 5-9 H (0-4) /HPF Ur Squamous Epith Cells 1+ /LPF Urine Bacteria TRACE /LPF 01/10/20 01/10/20 01/10/20 Range/Units 18:35 19:05 19:57 WBC (4.8-10.8) X10*3/uL RBC (4.60-5.80) X10*6/uL Hgb (14.0-18.0) g/dl Hct (42-52) % MCV (80-98) fL MCH (27.0-33.0) pg MCHC (31.0-36.0) g/dl RDW (11.0-16.0) % Plt Count (160-400) X10*3/uL MPV (9.4-12.4) fL Immature Gran % (Auto) Neut % (Auto) Lymph % (Auto) [place] % (Auto) Eos % (Auto) Baso % (Auto) Lymph # (Auto) [place] # (Auto) Eos # (Auto) Baso # (Auto) Abs Immat Gran (auto) Absolute Neuts (auto) Absolute Nucleated RBC (0.0-0.012) X10*3/uL Nucleated RBC % (auto) (0.0-0.2) /100WBC Neutrophils % (Manual) (45-73) % Band Neutrophils % (3-5) % Lymphocytes % (Manual) (20-40) % Monocytes % (Manual) (2-11) % Eosinophils % (Manual) (0-4) % Basophils % (Manual) (0-1) % Metamyelocytes % % Abs Neuts (Manual) (2.2-7.9) X10*3/uL Lymphocytes # (Manual) (0.6-4.8) X10*3/uL Monocytes # (Manual) (0.0-1.2) X10*3/uL Eosinophils # (Manual) (0.0-0.8) X10*3/UL Basophils # (Manual) (0.0-0.3) X10*3/uL Metamyelocytes # X10*3/uL Platelet Estimate (NORMAL) Plt Morphology Comment RBC Morphology Polychromasia PT 14.4 H (10.8-13.0) SEC INR 1.2 H (0.9-1.1) Sodium (135-145) mmol/L Potassium (3.3-5.1) mmol/l Chloride (96-108) mmol/L Carbon Dioxide (22-29) mmol/L Anion Gap (12-20) BUN (9-16) mg/dL Creatinine (0.5-1.4) mg/dL Estim Creat Clear Calc Estimated GFR POC Glucose 60 96 (60-115) mg/dL Random Glucose (60-115) mg/dL Calcium (8.4-10.2) mg/dL Urine Color Urine Appearance Urine pH (5.0-8.0) Ur Specific [place] (1.005-1.025) Urine Protein (NEG-TRACE) MG/DL Urine Glucose (UA) (NEG) MG/DL Urine Ketones (NEG) MG/DL Urine Blood (NEG) Urine Nitrite (NEG) Ur Leukocyte Esterase (NEG) Urine RBC (0) /HPF Urine WBC (0-4) /HPF Ur Squamous Epith Cells /LPF Urine Bacteria /LPF Imaging Data CT scan - abdomen: Radiologist's impression: No urinary tract calculi are seen. Incidental note made of calcified pulmonary granuloma, benign right adrenal adenoma, benign bilateral simple renal cysts and mildly prominent retrocrural lymph node without any other adenopathy seen. Discharge Plan Discharge Clinical Impression: Urinary tract infection Qualifiers: Urinary tract infection type: acute cystitis Hematuria presence: without hematuria Qualified Code(s): N30.00 - Acute cystitis without hematuria Patient Disposition: Home, Self-Care Instructions: Urinary Tract Infection in Men (ED) Additional Instructions: Please follow-up with your primary care physician tomorrow. If you have any worsening or new symptoms, please return to the emergency room or call 911 Prescriptions: New nitrofurantoin monohyd/m-cryst [Macrobid] 100 mg capsule 100 mg PO Q12H 7 Days Qty: 14 RF: 0 No Action cefuroxime axetil 500 mg tablet 500 mg PO BID Qty: 14 RF: 0 furosemide 40 mg tablet 40 mg PO DAILY RF: 0 carvedilol 12.5 mg tablet 12.5 mg PO BID RF: 0 diltiazem HCl 240 mg capsule,extended release 24hr 240 mg PO DAILY RF: 0 glipizide 5 mg tablet extended release 24hr 10 mg PO BIDWM RF: 0 digoxin 250 mcg (0.25 mg) tablet 250 mcg PO DAILY RF: 0 omeprazole 40 mg capsule,delayed release(DR/EC) 40 mg PO DAILY RF: 0 pravastatin 80 mg tablet 80 mg PO DAILY RF: 0 tamsulosin 0.4 mg capsule 0.4 mg PO DAILY@1700 RF: 0 metformin 500 mg tablet extended release 24 hr 1,500 mg PO DAILY RF: 0 Lantus Solostar U-100 Insulin 100 unit/mL (3 mL) insulin pen 30 unit subcut BEDTIME RF: 0 acetaminophen 325 mg Tablet 650 mg PO Q6H PRN (Reason: Pain And Fever) 30 Days Qty: 240 RF: 0 oxycodone 5 mg Tablet 5 mg PO Q6H PRN (Reason: Pain, Mild (Pain Scale 1-3)) 7 Days Qty: 28 RF: 0 enoxaparin 40 mg/0.4 mL Syringe 40 mg subcut Q24H 30 Days Qty: 12 RF: 0 warfarin 2 mg tablet 2 mg PO DAILY Qty: 90 RF: 0 warfarin 4 mg tablet 4 mg PO DAILY Qty: 90 RF: 0
--- NOTE | 2020-01-10 16:39 | CT_ITS ---
EXAMINATION: CT ABDOMEN AND PELVIS WITHOUT CONTRAST CLINICAL INFORMATION: Passing stones. COMPARISON: None TECHNIQUE: Multidetector volumetric imaging was performed from the superior aspect of the liver through the pubic symphysis. Sagittal and coronal reformatted images were obtained on the technologist's workstation. This CT examination was performed using dose optimization techniques as appropriate, variously including the following: *Automated exposure control *Adjustment of mA and/or kV according to patient size (this includes techniques or standardized protocols for targeted exams where dose is matched to indication/reason for exam; i.e. extremities or head) *Use of iterative reconstruction technique DLP: 972 mGy-cm FINDINGS: LUNG BASES: The visualized lung bases are unremarkable. Calcified granulomas noted in the lingula. Coronary artery calcifications are present. LIVER, GALLBLADDER, AND BILIARY TREE: The liver is normal in size, shape, and attenuation. No focal hepatic lesion or biliary ductal dilatation is present. The gallbladder is unremarkable with no evidence of radiopaque gallstones, gallbladder wall thickening, or obvious pericholecystic inflammatory changes. PANCREAS: Unremarkable SPLEEN: Unremarkable ADRENAL GLANDS: On the right, a 1.8 x 1.0 x 1.6 cm benign adrenal adenoma is present. The left adrenal gland appears normal. KIDNEYS AND URETERS: The kidneys are normal in size, shape, and attenuation. Bilateral benign renal cysts are present with the largest on the right measuring 3.4 cm and the largest on the left measuring 6.7 cm. No hydronephrosis, hydroureter, or calculi seen. No perinephric stranding. BLADDER: Unremarkable. The inferior aspect of the bladder is obscured by bilateral hip prosthesis artifact. GASTROINTESTINAL TRACT: The small and large bowel are unremarkable. The appendix is unremarkable. ABDOMINAL WALL: No significant hernia is appreciated. LYMPH NODES: A small retrocrural node is noted on the right measuring 3.3 x 1.4 x 1.2 cm (series 3 image 24). No retroperitoneal lymphadenopathy is seen. VASCULAR: Atherosclerotic changes present in the aorta and iliofemoral vessels. No aortic aneurysm is seen. PELVIC VISCERA: The prostate and seminal vesicles are obscured by artifact from bilateral hip prostheses. OSSEOUS STRUCTURES: Bilateral hip prostheses are present. There are marked degenerative changes in the spine with mild biconvex thoracolumbar scoliosis. No bony destructive lesions are seen. CT/CT abdomen pelvis wo con IMPRESSION: No urinary tract calculi are seen. Incidental note made of calcified pulmonary granuloma, benign right adrenal adenoma, benign bilateral simple renal cysts and mildly prominent retrocrural lymph node without any other adenopathy seen.
[2020-01-10 17:06] LABS: Hematocrit 34.9 % (42-52); Hemoglobin 11.2 g/dl (14.0-18.0); Mean Corpuscular HGB Conc 32.1 g/dl (31.0-36.0); Mean Corpuscular Hemoglobin 30.8 pg (27.0-33.0); Mean Corpuscular Volume 95.9 fL (80-98); Mean Platelet Volume 10.2 fL (9.4-12.4); NRBC Pct Auto 0.2 /100WBC (0.0-0.2); Platelet Count 265 X10*3/uL (160-400); Red Blood Count 3.64 X10*6/uL (4.60-5.80); Red Cell Distribution Width 14.7 % (11.0-16.0)
[2020-01-10 17:15] VITALS: BP 122/60; PULSE 59; RESP 16; TEMP 36.8; O2SAT 97
--- NOTE | 2020-01-10 17:18 | PC.NURSE ---
Pt very vague, irritated with assessment questions asked. States my doctor sent me here, I feel fine LLE noted with postoperative dsg, leg is sl edematous and warm to touch, no fevers or increased pain. Reports not fully emptying bladder but no discomfort to abd or hematuria. Awaiting lab results and ct scan at this time
[2020-01-10 17:32] LABS: Band Neutrophils Percent 1 % (3-5); Basophils Abs Manual 0.1 X10*3/uL (0.0-0.3); Basophils Percent Manual 1 % (0-1); Eosinophils Absolute Manual 0.8 X10*3/UL (0.0-0.8); Eosinophils Percent Manual 6 % (0-4); Lymphocytes Absolute Manual 2.5 X10*3/uL (0.6-4.8); Lymphocytes Percent Manual 19 % (20-40); Metamyelocytes Absolute 0.4 X10*3/uL; Metamyelocytes Percent 3 %; Monocytes Absolute Manual 1.6 X10*3/uL (0.0-1.2); Monocytes Percent Manual 12 % (2-11); Neutrophils Absolute Manual 7.7 X10*3/uL (2.2-7.9); Neutrophils Percent Manual 58 % (45-73); Platelet Estimate NORMAL (NORMAL); Platelet Morphology Comment NORMAL; Polychromasia 1+; RBC Morphology NORMAL
[2020-01-10 17:48] LABS: Anion Gap 14 (12-20); Blood Urea Nitrogen 24 mg/dL (9-16); Carbon Dioxide 30 mmol/L (22-29); Chloride 104 mmol/L (96-108); Creatinine Clr Calc Pharmacy 86.6; Estimated Glomerular Filt Rate > 60; Glucose Random 41 mg/dL (60-115); Sodium 143 mmol/L (135-145)
--- NOTE | 2020-01-10 17:57 | PC.NURSE ---
Serum glucose 41, orange juice and ham sandwich given. UA collected, black sediment noted in urine
[2020-01-10 18:13] LABS: Glucose Urine UA NEG (NEG); Leukocyte Esterase Urine 1+ (NEG); Nitrite Urine NEG (NEG); PH 5.5 (5.0-8.0); Urine Blood 2+ (NEG); Urine Ketones NEG (NEG); Urine Protein NEG (NEG-TRACE)
[2020-01-10 18:15] LABS: Appearance Urine CLEAR; Color Urine YELLOW
[2020-01-10 18:39] LABS: Glucose, Whole Blood 60 mg/dL (60-115)
[2020-01-10 18:41] VITALS: BP 119/59; PULSE 57; RESP 16; O2SAT 96
--- NOTE | 2020-01-10 18:46 | PC.NURSE ---
Repeat POC 60, Dr jimenez aware, given additional orange juice
[2020-01-10 18:49] LABS: Bacteria Urine TRACE /LPF; RBC Urine 0-2 /HPF (0); Squamous Epithelial Cell Urine 1+ /LPF
[2020-01-10 19:08] LABS: Glucose, Whole Blood 96 mg/dL (60-115)
[2020-01-10] MEDS: Nitrofurantoin Monohyd/M-Cryst 100 MG CAPSULE PO (19:44)
[2020-01-10 20:00] VITALS: BP 130/69; PULSE 86; RESP 18; TEMP 36.9; O2SAT 98
[2020-01-10 20:23] LABS: INTERNATIONAL NORM RATIO 1.2 (0.9-1.1); Prothrombin Time 14.4 SEC (10.8-13.0)
== END 2020-01-10 21:15 | disposition home or self-care (01) ==
PROVIDERS: Emergency Provider Emergency Medicine; PCP Internal Medicine
DX: N30.00 Acute cystitis without hematuria (principal); Z79.899 Other long term (current) drug therapy
CPT/HCPCS: 36415; 74176; 80048; 81001; 82947; 85007; 85027; 85610; 87086; 96372; 99284

== ENCOUNTER → 2020-01-19 13:58 | Outpatient (BNVA) | payer OTHER, SELFPAY | PROVIDERS: PCP Internal Medicine; Visit Provider Physician Assistant | DX: Z76.89 Persons encountering health services in other specified circumstances (principal) ==

== ENCOUNTER → 2020-01-25 15:47 | Outpatient (BNVA) | payer OTHER, SELFPAY | PROVIDERS: PCP Internal Medicine; Visit Provider Internal Medicine | DX: I48.20 Chronic atrial fibrillation, unspecified (principal); Z51.81 Encounter for therapeutic drug level monitoring; Z79.01 Long term (current) use of anticoagulants | CPT/HCPCS: 85610; 99211 ==

== ENCOUNTER → 2020-02-18 08:44 | Outpatient (BNVA) | payer OTHER, SELFPAY | PROVIDERS: Visit Provider Orthopaedic Surgery | DX: Z76.89 Persons encountering health services in other specified circumstances (principal) ==

== ENCOUNTER 2020-02-21 12:31 | Outpatient (REF) | payer OTHER, SELFPAY ==
[2020-02-21 13:39] LABS: MANUAL DIFF FLAG NO
[2020-02-21 13:46] LABS: Basophils Percent Auto 0.3 % (0-2); Eosinophils Absolute Auto 0.2 X10*3/uL (0.0-0.4); Eosinophils Percent Auto 2.4 % (0-4); Hematocrit 35.5 % (42-52); Hemoglobin 11.3 g/dl (14.0-18.0); Imm Gran Abs Auto 0.04 X10*3/uL (0.00-0.03); Imm Gran Pct Auto 0.4 % (0.0-0.4); Lymphocytes Absolute Auto 1.9 X10*3/uL (1.2-4.9); Lymphocytes Percent Auto 18.5 % (20-40); Mean Corpuscular HGB Conc 31.8 g/dl (31.0-36.0); Mean Corpuscular Hemoglobin 30.5 pg (27.0-33.0); Mean Corpuscular Volume 95.9 fL (80-98); Mean Platelet Volume 11.2 fL (9.4-12.4); Monocytes Absolute Auto 1.3 X10*3/uL (0.1-1.2); Monocytes Percent Auto 12.5 % (2-11); Neutrophils Absolute Auto 6.7 X10*3/uL (2.0-8.3); Neutrophils Percent Auto 65.9 % (45-73); Platelet Count 231 X10*3/uL (160-400); Red Cell Distribution Width 13.9 % (11.0-16.0); White Blood Count 10.2 X10*3/uL (4.8-10.8)
[2020-02-21 14:14] LABS: Alanine Aminotransferase 7 U/L (0-40); Albumin Level 3.9 g/dL (3.5-5.0); Alkaline Phosphatase 75 U/L (39-117); Anion Gap 13 (12-20); Aspartate Amino Transferase 16 U/L (5-37); Bilirubin Total 0.7 mg/dL (0.0-1.0); Blood Urea Nitrogen 16 mg/dL (9-16); Calcium 8.6 mg/dL (8.4-10.2); Carbon Dioxide 28 mmol/L (22-29); Chloride 105 mmol/L (96-108); Creatinine Urine 121.94 mg/dL; Estimated Glomerular Filt Rate > 60; Glucose Random 51 mg/dL (60-115); Microalbum/Creatinine Ratio Ur 182.8 ug/mg cr; Potassium 4.4 mmol/l (3.3-5.1); Sodium 142 mmol/L (135-145); Total Protein 6.3 g/dL (6.5-8.0)
[2020-02-21 15:10] LABS: Estimated Average Glucose 134 mg/dL; Hemoglobin A1c % 6.3 %
== END 2020-02-21 12:32 | disposition home or self-care (01) ==
LOC: HO.10HDL 12:31
PROVIDERS: PCP Internal Medicine; Visit Provider Internal Medicine
DX: E11.9 Type 2 diabetes mellitus without complications (principal); I48.91 Unspecified atrial fibrillation; I10 Essential (primary) hypertension; R60.9 Edema, unspecified
CPT/HCPCS: 36415; 80053; 82043; 83036; 85025

== ENCOUNTER 2020-03-06 08:00 | Outpatient (RCR) | payer OTHER, SELFPAY ==
--- NOTE | 2020-01-24 15:12 | MHC.PT.EP ---
[facility] [place] Office [place] Office [place] Office [address] Britton Hwang [address] [phone] F: [phone] F: [phone] F: [phone] F: [phone] Physical Therapy Plan of Care Date of Evaluation: 01/24/20 Date of Surgery: 01/03/20 Diagnosis: L TKA 01/03/20 Assessment: Patient is a 69 year old R handed male who presents with s/s consistent with L TKA. He is retired but does enjoy walking to run errands and to stay active. Patient past medical history includes AFib, TKA on R, L shoulder surgery, DM. Current impairments include pain, ROM, strength, balance, safety, independence, activity tolerance and functional mobility. Functional limitations include decreased ability to walk, stand, transfer, negotiate stairs, and perform weight bearing activities.. Patient is motivated with good rehab potential. Skilled PT will address impairments and functional limitations in order to achieve goals. Frequency and Duration: The patient will be seen 2x/week for 6 weeks Short Term Goals: I with HEP - 2 weeks AROM 0-120 - 3 weeks Able to bike 10 min - 3 weeks Assisted Goals: LEFS 48/80 - 5 weeks LE strength 4/5 - 6 weeks Step through with no AD with amb and stairs - 6 weeks Treatment Plan: Modalities to reduce pain, spasms and effusion. Manual therapy to restore motion and function. Therapeutic exercise to improve strength and flexibility. Neuromuscular re-education for posture and balance. Therapeutic activities to return to functional activities of daily living. Please sign and return to therapist. Thank you for your referral.
--- NOTE | 2020-03-23 09:44 | MHC.PT.DC ---
[facility] [place] Office [place] Office [place] Office [address] Britton Hwang [address] [phone] F: [phone] F: [phone] F: [phone] F: [phone] Physical Therapy Discharge Report Diagnosis: L TKA 01/03/20 Date of Surgery: 01/03/20 Date of Evaluation: 01/24/20 Date of Discharge: 03/23/20 Treatments to Date: 11 Cancellations to Date: No Shows to Date: Discharge Status: Independent with HEP Discharge Summary: LEFS 41/80. Pt progressed well over the course of skilled PT making progress on impairments and functional limitations resulting in an improved quality of life. Pt is I with HEP and appropriate to d/c to HEP at this time. Electronically signed by: Clifton Torres, PT Please sign and return to therapist. Thank you for your referral.
== END 2020-03-23 09:44 | disposition home or self-care (01) ==
LOC: HO.PTCHIC 08:00
PROVIDERS: PCP Internal Medicine; Visit Provider Physician Assistant
DX: Z47.1 Aftercare following joint replacement surgery (principal); Z96.652 Presence of left artificial knee joint
CPT/HCPCS: 85610; 97110; 97140; 97162; 99211

== ENCOUNTER → 2020-03-20 08:38 | Outpatient (BNVA) | payer OTHER, SELFPAY | PROVIDERS: PCP Internal Medicine; Visit Provider Internal Medicine | DX: I48.20 Chronic atrial fibrillation, unspecified (principal); Z79.01 Long term (current) use of anticoagulants; Z51.81 Encounter for therapeutic drug level monitoring | CPT/HCPCS: 85610; 99211 ==

== ENCOUNTER → 2020-04-17 08:23 | Outpatient (BNVA) | payer OTHER, SELFPAY | PROVIDERS: PCP Internal Medicine; Visit Provider Internal Medicine | DX: I48.20 Chronic atrial fibrillation, unspecified (principal); Z51.81 Encounter for therapeutic drug level monitoring; Z79.01 Long term (current) use of anticoagulants | CPT/HCPCS: 85610; 99211 ==

== ENCOUNTER 2020-04-27 10:59 | Outpatient (REF) | payer OTHER, SELFPAY ==
[2020-04-27 13:33] LABS: MANUAL DIFF FLAG NO
[2020-04-27 13:38] LABS: Basophils Percent Auto 0.2 % (0-2); Eosinophils Absolute Auto 0.3 X10*3/uL (0.0-0.4); Eosinophils Percent Auto 2.5 % (0-4); Hematocrit 38.3 % (42-52); Hemoglobin 11.8 g/dl (14.0-18.0); Imm Gran Abs Auto 0.03 X10*3/uL (0.00-0.03); Imm Gran Pct Auto 0.3 % (0.0-0.4); Lymphocytes Absolute Auto 1.7 X10*3/uL (1.2-4.9); Lymphocytes Percent Auto 17.3 % (20-40); Mean Corpuscular HGB Conc 30.8 g/dl (31.0-36.0); Mean Corpuscular Hemoglobin 28.2 pg (27.0-33.0); Mean Corpuscular Volume 91.4 fL (80-98); Mean Platelet Volume 11.1 fL (9.4-12.4); Monocytes Absolute Auto 1.2 X10*3/uL (0.1-1.2); Monocytes Percent Auto 11.9 % (2-11); Neutrophils Absolute Auto 6.7 X10*3/uL (2.0-8.3); Neutrophils Percent Auto 67.8 % (45-73); Platelet Count 181 X10*3/uL (160-400); Red Blood Count 4.19 X10*6/uL (4.60-5.80); Red Cell Distribution Width 14.2 % (11.0-16.0); White Blood Count 9.9 X10*3/uL (4.8-10.8)
[2020-04-27 13:53] LABS: Estimated Average Glucose 140 mg/dL; Hemoglobin A1c % 6.5 %
[2020-04-27 13:59] LABS: Alanine Aminotransferase 12 U/L (0-40); Albumin Level 3.8 g/dL (3.5-5.0); Alkaline Phosphatase 79 U/L (39-117); Anion Gap 12 (12-20); Aspartate Amino Transferase 22 U/L (5-37); Bilirubin Total 0.9 mg/dL (0.0-1.0); Blood Urea Nitrogen 18 mg/dL (9-16); Calcium 8.8 mg/dL (8.4-10.2); Carbon Dioxide 33 mmol/L (22-29); Chloride 102 mmol/L (96-108); Estimated Glomerular Filt Rate > 60; Glucose Random 97 mg/dL (60-115); Potassium 4.7 mmol/L (3.3-5.1); Sodium 142 mmol/L (135-145); Total Protein 6.2 g/dL (6.5-8.0)
[2020-04-27 14:01] LABS: B Type Natriuretic Peptide 154 pg/mL (<100)
[2020-04-27 14:15] LABS: Thyroid Stimulating Hormone 1.45 uIU/mL (0.32-4.0)
== END 2020-04-27 11:00 | disposition home or self-care (01) ==
LOC: HO.10HDL 10:59
PROVIDERS: Visit Provider Internal Medicine
DX: E11.9 Type 2 diabetes mellitus without complications (principal); I48.91 Unspecified atrial fibrillation; I10 Essential (primary) hypertension; R60.9 Edema, unspecified; N40.0 Benign prostatic hyperplasia without lower urinary tract symptoms
CPT/HCPCS: 36415; 80053; 83036; 83880; 84443; 85025

== ENCOUNTER → 2020-05-08 14:50 | Outpatient (BNVA) | payer OTHER, SELFPAY | PROVIDERS: PCP Internal Medicine; Visit Provider Internal Medicine | DX: I48.19 Other persistent atrial fibrillation (principal); I50.813 Acute on chronic right heart failure; G47.33 Obstructive sleep apnea (adult) (pediatric); I10 Essential (primary) hypertension; E11.8 Type 2 diabetes mellitus with unspecified complications | CPT/HCPCS: 93005 ==

== ENCOUNTER → 2020-05-09 13:38 | Outpatient (REF) | payer OTHER, SELFPAY ==
--- NOTE | 2020-05-09 13:55 | CA_ITS ---
Transthoracic Echocardiogram Patient (Last, First, Middle): Leonardo Pang J Gender: Male Date of : 1950 Age: 70 Procedure Date: 05/09/2020 Procedure Type: Transthoracic Echocardiogram Location: OP Height: 172.72 cm Weight: 120.2 kg BSA: 2.30 m2 Heart Rate: 45 bpm BP: 122 / 80 mmHg Wire Threader: Referring MD: Camacho Kirkland MD Symptoms: I50.813 - Acute on chronic right heart failure Study Quality: Fair ECG Rhythm: Atrial Fibrillation with slow ventricular response Conclusions: - The left ventricular systolic function is normal. The visually estimated ejection fraction is between 55-60%. - The left atrium is moderately dilated. - There is mild to moderate tricuspid valve regurgitation. - Mild pulmonary hypertension is present. - The inferior vena cava is dilated and does not collapse with inspiration. Findings Left Ventricle Normal left ventricular cavity size. There is mildly increased left ventricular wall thickness. The left ventricular systolic function is normal. The visually estimated ejection fraction is between 55-60%. There is no evidence of regional wall motion abnormalities. Diastolic function is indeterminate on the basis of available data. Right Ventricle Normal right ventricular cavity size. There is normal right ventricular systolic function. Atria The left atrium is moderately dilated. The right atrium is normal in size. Aortic Valve The aortic valve was not well visualized. There is no aortic valve stenosis. There is no aortic valve regurgitation. Mitral Valve There is mild mitral annular calcification. There is trace mitral valve regurgitation. There is no mitral valve stenosis. Pulmonic Valve The pulmonic valve was not well visualized. Tricuspid Valve Normal tricuspid valve structure. There is mild to moderate tricuspid valve regurgitation. The right ventricular systolic pressure is 46 mmHg. Mild pulmonary hypertension is present. Great Vessels The aortic annulus, sinuses of valsalva, and asc aorta are normal in size. Venous The inferior vena cava is dilated and does not collapse with inspiration. Pericardium/Pleural There is no evidence of pericardial effusion. Prior Study Comparison Changes noted compared to prior study dated: 08/03/2019. See comments on IVC. Measurements 2D Linear Measurements IVSd: 1.10 0.6-0.9/0.6-1.0 cm LVIDd: 4.93 3.9-5.3/4.2-5.9 cm LVIDd Index: 2.14 2.4-3.2/2.2-3.1 cm/m2 LVIDs: 3.67 2.0-3.6 cm LVPWd: 1.07 0.7-1.1 cm Ao Root: 3.40 2.1-3.5 cm LA Diam: 4.50 2.7-3.8/3.0-4.0 cm LAIDs Index: 1.96 1.5-2.3 cm/m2 LV Mass: 247.61 67-162/88-224 g LV Mass Index: 107.66 43-95/49-115 g/m2 LVOT Diam: 2.10 3.0+(-)1.3 cm 2D Systolic Function EF 4C: 56.40 >55% EF 2C: 58.20 >55% EF BiP: 58.70 >55% Mitral Valve MV Pk E: 1.27 MV Decel Time: 168.00 E'Lateral: 11.00 E'Medial: 6.85 E/E' Med: 18.50 E/E' Lat: 11.50 PHT: 49.00 MVA PHT: 4.49 Decel Walsh: 7.60 Aortic Valve AoV Pk Corey: 1.26 AoV Mn Corey: 0.93 AoV VTI: 0.31 AoV Pk Grad: 6.00 Aov Mn Grad: 4.00 EUSEBIO Cont.VTI: 2.33 LVOT LVOT Pk Corey: 0.80 LVOT Mn Corey: 0.56 LVOT VTI: 0.21 LVOT Pk Grad: 3.00 LVOT Mn Grad: 1.00 LVOT Diam: 2.10 LVOT Area: 3.46 Diastolic Function MV Pk E: 1.27 E'Medial: 6.85 E/E' Med: 18.50 E' Laterial: 11.00 E/E' Lat: 11.50 Tricuspid Valve TR Pk Corey: 2.80 TR Pk Grad: 31.00 RA Press: 15.00 RVSP: 46.00 Great Vessels Aorta Ao Root-2D: 3.40 2.0-3.7 cm Ao Asc: 3.80 2.1-3.4 cm Pulmonary Valve PV Pk Corey: 0.92 Peak PV Grad: 3.00 Updated in Other Vendor System with Status of Final Camacho Kirkland MD electronically signed on 05/10/2020 12:35:16 PM with status of Final
== END ==
LOC: HO.CARD 13:38
PROVIDERS: PCP Internal Medicine; Visit Provider Internal Medicine
DX: I50.813 Acute on chronic right heart failure (principal)
CPT/HCPCS: 93306

== ENCOUNTER → 2020-05-12 14:25 | Outpatient (BNVA) | payer OTHER, SELFPAY | PROVIDERS: PCP Internal Medicine; Visit Provider Internal Medicine | DX: I48.20 Chronic atrial fibrillation, unspecified (principal); Z51.81 Encounter for therapeutic drug level monitoring; Z79.01 Long term (current) use of anticoagulants | CPT/HCPCS: 85610; 99211 ==

== ENCOUNTER 2020-05-25 11:15 | Outpatient (REF) | payer OTHER, SELFPAY ==
[2020-05-25 13:38] LABS: MANUAL DIFF FLAG NO
[2020-05-25 13:43] LABS: Basophils Percent Auto 0.3 % (0-2); Eosinophils Absolute Auto 0.3 X10*3/uL (0.0-0.4); Eosinophils Percent Auto 3.1 % (0-4); Hematocrit 43.2 % (42-52); Hemoglobin 13.8 g/dl (14.0-18.0); Imm Gran Abs Auto 0.05 X10*3/uL (0.00-0.03); Imm Gran Pct Auto 0.5 % (0.0-0.4); Lymphocytes Absolute Auto 1.8 X10*3/uL (1.2-4.9); Lymphocytes Percent Auto 17.6 % (20-40); Mean Corpuscular HGB Conc 31.9 g/dl (31.0-36.0); Mean Corpuscular Hemoglobin 28.2 pg (27.0-33.0); Mean Corpuscular Volume 88.2 fL (80-98); Mean Platelet Volume 11.5 fL (9.4-12.4); Monocytes Absolute Auto 1.2 X10*3/uL (0.1-1.2); Monocytes Percent Auto 11.5 % (2-11); Neutrophils Absolute Auto 6.8 X10*3/uL (2.0-8.3); Platelet Count 199 X10*3/uL (160-400); Red Cell Distribution Width 14.2 % (11.0-16.0); White Blood Count 10.1 X10*3/uL (4.8-10.8)
[2020-05-25 14:20] LABS: Alanine Aminotransferase 13 U/L (0-40); Albumin Level 4.2 g/dL (3.5-5.0); Alkaline Phosphatase 80 U/L (39-117); Anion Gap 13 (12-20); Aspartate Amino Transferase 27 U/L (5-37); Bilirubin Total 1.1 mg/dL (0.0-1.0); Blood Urea Nitrogen 28 mg/dL (9-16); Calcium 9.3 mg/dL (8.4-10.2); Carbon Dioxide 37 mmol/L (22-29); Chloride 94 mmol/L (96-108); Estimated Glomerular Filt Rate > 60; Glucose Random 118 mg/dL (60-115); Sodium 140 mmol/L (135-145); Total Protein 6.7 g/dL (6.5-8.0)
[2020-05-25 14:22] LABS: B Type Natriuretic Peptide 110 pg/mL (<100)
[2020-05-25 14:24] LABS: Estimated Average Glucose 157 mg/dL; Hemoglobin A1c % 7.1 %
== END 2020-05-25 11:16 | disposition home or self-care (01) ==
LOC: HO.10HDL 11:15
PROVIDERS: Absent Provider Internal Medicine; Visit Provider Internal Medicine
DX: E11.9 Type 2 diabetes mellitus without complications (principal); I48.91 Unspecified atrial fibrillation; R60.9 Edema, unspecified; I50.813 Acute on chronic right heart failure
CPT/HCPCS: 36415; 80053; 83036; 83880; 85025

== ENCOUNTER → 2020-06-07 09:34 | Outpatient (BNVA) | payer OTHER, SELFPAY | PROVIDERS: PCP Internal Medicine; Visit Provider Internal Medicine ==

== ENCOUNTER → 2020-06-12 08:07 | Outpatient (BNVA) | payer OTHER, SELFPAY | PROVIDERS: PCP Internal Medicine; Visit Provider Internal Medicine | DX: I48.20 Chronic atrial fibrillation, unspecified (principal); Z51.81 Encounter for therapeutic drug level monitoring; Z79.01 Long term (current) use of anticoagulants | CPT/HCPCS: 85610; 99211 ==

== ENCOUNTER 2020-06-29 08:59 | Outpatient (REF) | payer OTHER, SELFPAY ==
[2020-06-29 11:13] LABS: Anion Gap 16 (12-20); Blood Urea Nitrogen 30 mg/dL (9-16); Calcium 9.4 mg/dL (8.4-10.2); Carbon Dioxide 35 mmol/L (22-29); Chloride 94 mmol/L (96-108); Estimated Glomerular Filt Rate > 60; Glucose Random 113 mg/dL (60-115); Potassium 3.8 mmol/L (3.3-5.1); Sodium 141 mmol/L (135-145)
== END 2020-06-29 09:00 | disposition home or self-care (01) ==
LOC: HO.LAB 08:59
PROVIDERS: PCP Internal Medicine; Visit Provider Internal Medicine
DX: I50.813 Acute on chronic right heart failure (principal)
CPT/HCPCS: 36415; 80048

== ENCOUNTER → 2020-07-10 07:59 | Outpatient (BNVA) | payer OTHER, SELFPAY | PROVIDERS: PCP Internal Medicine; Visit Provider Internal Medicine | DX: I48.20 Chronic atrial fibrillation, unspecified (principal); Z51.81 Encounter for therapeutic drug level monitoring; Z79.01 Long term (current) use of anticoagulants | CPT/HCPCS: 85610; 99211 ==

== ENCOUNTER 2020-08-04 05:56 | Outpatient (REF) | payer OTHER, SELFPAY ==
[2020-08-04 07:16] LABS: MANUAL DIFF FLAG NO
[2020-08-04 07:23] LABS: Basophils Percent Auto 0.2 % (0-2); Eosinophils Absolute Auto 0.3 X10*3/uL (0.0-0.4); Eosinophils Percent Auto 3.1 % (0-4); Hematocrit 39.8 % (42-52); Hemoglobin 13.2 g/dl (14.0-18.0); Imm Gran Abs Auto 0.03 X10*3/uL (0.00-0.03); Imm Gran Pct Auto 0.3 % (0.0-0.4); Lymphocytes Absolute Auto 2.6 X10*3/uL (1.2-4.9); Mean Corpuscular HGB Conc 33.2 g/dl (31.0-36.0); Mean Corpuscular Hemoglobin 30.7 pg (27.0-33.0); Mean Corpuscular Volume 92.6 fL (80-98); Mean Platelet Volume 11.1 fL (9.4-12.4); Monocytes Absolute Auto 1.2 X10*3/uL (0.1-1.2); Monocytes Percent Auto 12.6 % (2-11); Neutrophils Absolute Auto 5.1 X10*3/uL (2.0-8.3); Neutrophils Percent Auto 55.8 % (45-73); Platelet Count 214 X10*3/uL (160-400); Red Cell Distribution Width 14.3 % (11.0-16.0); White Blood Count 9.1 X10*3/uL (4.8-10.8)
[2020-08-04 07:30] LABS: Estimated Average Glucose 163 mg/dL; Hemoglobin A1c % 7.3 %
[2020-08-04 07:44] LABS: Alanine Aminotransferase 14 U/L (0-40); Alkaline Phosphatase 83 U/L (39-117); Anion Gap 12 (12-20); Aspartate Amino Transferase 27 U/L (5-37); Bilirubin Total 0.6 mg/dL (0.0-1.0); Blood Urea Nitrogen 24 mg/dL (9-16); Calcium 9.2 mg/dL (8.4-10.2); Carbon Dioxide 35 mmol/L (22-29); Chloride 98 mmol/L (96-108); Estimated Glomerular Filt Rate > 60; Glucose Random 131 mg/dL (60-115); Potassium 4.2 mmol/L (3.3-5.1); Sodium 141 mmol/L (135-145); Total Protein 6.4 g/dL (6.5-8.0)
[2020-08-04 08:11] LABS: Microalbum/Creatinine Ratio Ur 12.1 ug/mg cr
== END 2020-08-04 05:57 | disposition home or self-care (01) ==
LOC: HO.LAB 05:56
PROVIDERS: PCP Internal Medicine; Visit Provider Internal Medicine
DX: I48.91 Unspecified atrial fibrillation (principal); E11.9 Type 2 diabetes mellitus without complications; R60.0 Localized edema; M19.90 Unspecified osteoarthritis, unspecified site
CPT/HCPCS: 36415; 80053; 82043; 83036; 85025

== ENCOUNTER → 2020-08-14 07:59 | Outpatient (BNVA) | payer OTHER, SELFPAY | PROVIDERS: PCP Internal Medicine; Visit Provider Internal Medicine | DX: I48.20 Chronic atrial fibrillation, unspecified (principal); Z51.81 Encounter for therapeutic drug level monitoring; Z79.01 Long term (current) use of anticoagulants | CPT/HCPCS: 85610; 99211 ==

== ENCOUNTER → 2020-08-25 09:45 | Outpatient (BNVA) | payer OTHER, SELFPAY | PROVIDERS: PCP Internal Medicine; Visit Provider Internal Medicine ==

== ENCOUNTER → 2020-09-05 09:25 | Outpatient (BNVA) | payer OTHER, SELFPAY | PROVIDERS: PCP Internal Medicine; Referring Provider Internal Medicine; Visit Provider Internal Medicine ==

== ENCOUNTER → 2020-09-18 07:56 | Outpatient (BNVA) | payer OTHER, SELFPAY | PROVIDERS: PCP Internal Medicine; Visit Provider Internal Medicine | DX: I48.20 Chronic atrial fibrillation, unspecified (principal); Z51.81 Encounter for therapeutic drug level monitoring; Z79.01 Long term (current) use of anticoagulants | CPT/HCPCS: 85610; 99211 ==

== ENCOUNTER → 2020-10-16 08:01 | Outpatient (BNVA) | payer OTHER, SELFPAY | PROVIDERS: PCP Internal Medicine; Visit Provider Internal Medicine | DX: I48.20 Chronic atrial fibrillation, unspecified (principal); Z79.01 Long term (current) use of anticoagulants; Z51.81 Encounter for therapeutic drug level monitoring | CPT/HCPCS: 85610; 99211 ==

== ENCOUNTER → 2020-11-01 12:43 | Outpatient (REF) | payer OTHER, SELFPAY ==
--- NOTE | 2020-11-01 12:46 | ECG_ITS ---
Hook-up date: 2020-11-01 13:23:00 Duration: 26:12:00 Test Indications: PAF Medications: 623630 QRS complexes 76683 Ventricular ectopics which represent 19 % of total QRS comp. * Supraventricular ectopics which represent % of total QRS comp. * Paced QRS complexs which represent % of total QRS comp. VENTRICULAR ECTOPY 47311 Isolated 109 Bigeminal Cycles 185 Couplets 4 Runs 12 Beats in Runs 3 Beats LONGEST at 157 BPM at 17:10:50 2020-11-01 3 Beats FASTEST at 187 BPM at 13:40:01 2020-11-02 SUPRAVENTRICULAR ECTOPY * Isolated * Couplets * Runs * Beats in Runs * Beats LONGEST at * BPM at :: -- * Beats FASTEST at * BPM at :: -- HEART RATES 38 MIN at 20:59:49 2020-11-01 71 AVG 194 MAX at 13:45:04 2020-11-02 LONGEST RR 2.6960 secs at 04:57:15 2020-11-02 S-T LEVELS Channel 1 - 128 mm at 13:23:00 2020-11-01 - 128 mm at 13:23:00 2020-11-01 Channel 2 - 128 mm at 13:23:00 2020-11-01 - 128 mm at 13:23:00 2020-11-01 Channel 3 - 128 mm at 03:24:21 -- - 128 mm at 03:24:21 Underlying rhythm is atrial fibrillation; Average ventricular rate 71/min; range 38-194/min; Most rates in range 60-100/min; About 6% of the time, >100/min; Frequent Premature ventricular complexes - 20% burden; mostly isolated, some couplets; longest run 3 beats; Overall, reasonable rate control, with slight tendency for tachycardia; Patient did not report any symptoms in the diary . Referred By: Ludy Dorado Overread By: LUDY DORADO
== END ==
LOC: HO.CARD 12:43
PROVIDERS: Visit Provider Internal Medicine
DX: I48.0 Paroxysmal atrial fibrillation (principal); I48.19 Other persistent atrial fibrillation
CPT/HCPCS: 93225; 93226

== ENCOUNTER 2020-11-07 06:38 | Outpatient (REF) | payer OTHER, SELFPAY ==
[2020-11-07 07:08] LABS: Anion Gap 12 (12-20); Blood Urea Nitrogen 27 mg/dL (9-16); Calcium 9.4 mg/dL (8.4-10.2); Carbon Dioxide 35 mmol/L (22-29); Chloride 99 mmol/L (96-108); Estimated Glomerular Filt Rate > 60; Glucose Random 95 mg/dL (60-115); Sodium 142 mmol/L (135-145)
== END 2020-11-07 06:39 | disposition home or self-care (01) ==
LOC: HO.LAB 06:38
PROVIDERS: PCP Internal Medicine; Visit Provider Internal Medicine
DX: I50.813 Acute on chronic right heart failure (principal)
CPT/HCPCS: 36415; 80048

== ENCOUNTER → 2020-11-14 08:07 | Outpatient (BNVA) | payer OTHER, SELFPAY | PROVIDERS: PCP Internal Medicine; Visit Provider Internal Medicine | DX: I48.20 Chronic atrial fibrillation, unspecified (principal); Z51.81 Encounter for therapeutic drug level monitoring; Z79.01 Long term (current) use of anticoagulants | CPT/HCPCS: 85610; 99211 ==

== ENCOUNTER → 2020-12-11 08:00 | Outpatient (BNVA) | payer OTHER, SELFPAY | PROVIDERS: PCP Internal Medicine; Visit Provider Internal Medicine | DX: I48.20 Chronic atrial fibrillation, unspecified (principal); Z51.81 Encounter for therapeutic drug level monitoring; Z79.01 Long term (current) use of anticoagulants | CPT/HCPCS: 85610; 99211 ==

== ENCOUNTER → 2021-01-02 09:05 | Outpatient (BNVA) | payer OTHER, SELFPAY | PROVIDERS: PCP Internal Medicine; Referring Provider Internal Medicine; Visit Provider Internal Medicine ==

== ENCOUNTER 2021-01-03 13:06 | Outpatient (REF) | payer MEDICARE, OTHER, SELFPAY ==
[2021-01-03 13:26] LABS: MANUAL DIFF FLAG NO
[2021-01-03 13:35] LABS: Basophils Percent Auto 0.3 % (0-2); Eosinophils Absolute Auto 0.3 X10*3/uL (0.0-0.4); Eosinophils Percent Auto 2.6 % (0-4); Hematocrit 42.2 % (42-52); Hemoglobin 13.9 g/dl (14.0-18.0); Imm Gran Abs Auto 0.05 X10*3/uL (0.00-0.03); Imm Gran Pct Auto 0.5 % (0.0-0.4); Lymphocytes Absolute Auto 2.2 X10*3/uL (1.2-4.9); Lymphocytes Percent Auto 21.8 % (20-40); Mean Corpuscular HGB Conc 32.9 g/dl (31.0-36.0); Mean Corpuscular Hemoglobin 30.2 pg (27.0-33.0); Mean Corpuscular Volume 91.5 fL (80-98); Mean Platelet Volume 10.3 fL (9.4-12.4); Monocytes Absolute Auto 1.1 X10*3/uL (0.1-1.2); Monocytes Percent Auto 10.8 % (2-11); Neutrophils Absolute Auto 6.6 X10*3/uL (2.0-8.3); Platelet Count 210 X10*3/uL (160-400); Red Blood Count 4.61 X10*6/uL (4.60-5.80); White Blood Count 10.2 X10*3/uL (4.8-10.8)
[2021-01-03 13:57] LABS: Alanine Aminotransferase 13 U/L (0-40); Albumin Level 4.5 g/dL (3.5-5.0); Alkaline Phosphatase 71 U/L (39-117); Anion Gap 13 (12-20); Aspartate Amino Transferase 29 U/L (5-37); Bilirubin Total 0.9 mg/dL (0.0-1.0); Blood Urea Nitrogen 27 mg/dL (9-16); Calcium 9.8 mg/dL (8.4-10.2); Carbon Dioxide 36 mmol/L (22-29); Chloride 98 mmol/L (96-108); Cholesterol 182 mg/dL; Estimated Glomerular Filt Rate 53; Glucose Fasting 71 mg/dL (60-99); HDL Cholesterol 45 mg/dL; LDL Cholesterol Calculated 113 mg/dl; Potassium 4.1 mmol/L (3.3-5.1); Sodium 143 mmol/L (135-145); Total Protein 7.4 g/dL (6.5-8.0); Triglycerides 121 mg/dL
[2021-01-03 14:04] LABS: Estimated Average Glucose 154 mg/dL
[2021-01-03 15:13] LABS: Creatinine Urine 15.61 mg/dL; Microalbumin Urine < 5.0 mg/L
[2021-01-04 11:16] LABS: Free Prostate Spec Ag 0.2 ng/mL; Percent Free Prostate Spec Ag 29 % (calc) (>25); Prostate Specific Ag Total 0.7 ng/mL (< OR = 4.0)
== END 2021-01-03 13:07 | disposition home or self-care (01) ==
LOC: HO.LAB 13:06
PROVIDERS: PCP Internal Medicine; Visit Provider Internal Medicine
DX: I48.19 Other persistent atrial fibrillation (principal); E11.9 Type 2 diabetes mellitus without complications; J44.9 Chronic obstructive pulmonary disease, unspecified; R60.9 Edema, unspecified; N40.0 Benign prostatic hyperplasia without lower urinary tract symptoms; Z12.5 Encounter for screening for malignant neoplasm of prostate
CPT/HCPCS: 36415; 80053; 80061; 82043; 83036; 84154; 85025

== ENCOUNTER → 2021-01-15 07:58 | Outpatient (BNVA) | payer OTHER, SELFPAY | PROVIDERS: PCP Internal Medicine; Visit Provider Internal Medicine | DX: I48.20 Chronic atrial fibrillation, unspecified (principal); Z51.81 Encounter for therapeutic drug level monitoring; Z79.01 Long term (current) use of anticoagulants | CPT/HCPCS: 85610; 99211 ==

== ENCOUNTER 2021-02-02 06:35 | Outpatient (REF) | payer MEDICARE, SELFPAY ==
--- NOTE | ~2021-02-02 | XR_ITS ---
EXAMINATION: XR FOOT, BILATERAL CLINICAL INFORMATION: Bilateral foot pain. COMPARISON: Left foot 07/27/2018. TECHNIQUE: 3 views of each foot. FINDINGS: LEFT FOOT: Interval resection of the 3rd toe with sparing of the base of the proximal phalanx. 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 Dorsiflexion of the 4th and 5th MTP joints. Severe arthritic changes of the Lisfranc joints, particularly the 4th and 5th TMT joints. No acute osseous abnormality is evident. Heel spur. RIGHT FOOT: Advanced arthritic changes throughout the midfoot with dorsal osteophytes, and diffuse sclerosis. There may be chronic fragmentation of the navicular raising the possibility of a neuropathic foot. Dorsiflexion at the 2nd through 5th MTP joints. Possible remote, healed fracture of the 5th proximal phalanx. Heel spur. 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 Marked hallux valgus of the left foot and dorsiflexion at the 2nd through 5th MTP joints bilaterally.
--- NOTE | ~2021-02-02 | XR_ITS ---
EXAMINATION: XR FOOT, BILATERAL CLINICAL INFORMATION: Bilateral foot pain. COMPARISON: Left foot 07/27/2018. TECHNIQUE: 3 views of each foot. FINDINGS: LEFT FOOT: Interval resection of the 3rd toe with sparing of the base of the proximal phalanx. 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 Dorsiflexion of the 4th and 5th MTP joints. Severe arthritic changes of the Lisfranc joints, particularly the 4th and 5th TMT joints. No acute osseous abnormality is evident. Heel spur. RIGHT FOOT: Advanced arthritic changes throughout the midfoot with dorsal osteophytes, and diffuse sclerosis. There may be chronic fragmentation of the navicular raising the possibility of a neuropathic foot. Dorsiflexion at the 2nd through 5th MTP joints. Possible remote, healed fracture of the 5th proximal phalanx. Heel spur. 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 Marked hallux valgus of the left foot and dorsiflexion at the 2nd through 5th MTP joints bilaterally.
== END 2021-02-02 06:36 | disposition home or self-care (01) ==
LOC: HO.XRAY 06:35
PROVIDERS: PCP Internal Medicine; Visit Provider Internal Medicine
DX: M79.672 Pain in left foot (principal); M79.671 Pain in right foot; E11.9 Type 2 diabetes mellitus without complications
CPT/HCPCS: 73630

== ENCOUNTER → 2021-02-12 08:07 | Outpatient (BNVA) | payer MEDICARE, SELFPAY | PROVIDERS: PCP Internal Medicine; Visit Provider Internal Medicine | DX: I48.20 Chronic atrial fibrillation, unspecified (principal); Z51.81 Encounter for therapeutic drug level monitoring; Z79.01 Long term (current) use of anticoagulants | CPT/HCPCS: 85610; 99211 ==

== ENCOUNTER → 2021-03-12 07:58 | Outpatient (BNVA) | payer MEDICARE, SELFPAY | PROVIDERS: PCP Internal Medicine; Visit Provider Internal Medicine | DX: I48.20 Chronic atrial fibrillation, unspecified (principal); Z51.81 Encounter for therapeutic drug level monitoring; Z79.01 Long term (current) use of anticoagulants | CPT/HCPCS: 85610; 99211 ==

== ENCOUNTER → 2021-04-09 08:01 | Outpatient (BNVA) | payer MEDICARE, SELFPAY | PROVIDERS: PCP Internal Medicine; Visit Provider Internal Medicine | DX: I48.20 Chronic atrial fibrillation, unspecified (principal); Z51.81 Encounter for therapeutic drug level monitoring; Z79.01 Long term (current) use of anticoagulants | CPT/HCPCS: 85610; 99211 ==

== ENCOUNTER → 2021-04-24 06:50 | Outpatient (REF) | payer MEDICARE, SELFPAY ==
--- NOTE | 2021-04-24 06:56 | HM_ITS ---
Conclusion: 1. Patient was monitored for total period of 3 days and 5 hours 2. Baseline rhythm is atrial fibrillation with average heart of 63 beats per minute 3. Multiple pauses noted, longest pause of 3.12nd at 17:50 4. Heart rate dips as low as 33 beats per minute 5. Total of 16,625 PVCs accounting for 5.66% of total burden account for frequent PVCs 6. Eight episodes of 3 beat salvos of VT 7. No patient reported symptoms MTDD
== END ==
LOC: HO.CARD 06:50
PROVIDERS: Visit Provider Internal Medicine
DX: I48.19 Other persistent atrial fibrillation (principal)
CPT/HCPCS: 93242

== ENCOUNTER 2021-04-27 12:29 | Outpatient (REF) | payer MEDICARE, SELFPAY ==
--- NOTE | ~2021-04-27 | CT_ITS ---
EXAMINATION: CT SOFT TISSUE NECK WITHOUT CONTRAST CLINICAL INFORMATION: 71-year-old with swelling/lymphadenopathy. COMPARISON: 05/17/2015 CT of the cervical spine. TECHNIQUE: Helical imaging was performed in the axial plane with generation of coronal and sagittal reformatted images. This CT examination was performed using dose optimization techniques as appropriate, variously including the following: *Automated exposure control *Adjustment of mA and/or kV according to patient size (this includes techniques or standardized protocols for targeted exams where dose is matched to indication/reason for exam; i.e. extremities or head) *Use of iterative reconstruction technique DLP: 460 mGy-cm FINDINGS: Skull Base: The bony skull base appears grossly intact. The visualized bony calvarium is remarkable for post mastoidectomy changes on the left, with a cochlear implant noted in place. Otherwise the visualized bony calvarium is intact. The residual mastoid air cells and middle ear cavities are unopacified bilaterally. There is some mucosal thickening in the anterior ethmoid complex on the left and there is [id number] mucosal thickening in the left maxillary sinus with a probable underlying retention cyst. Small retention cyst right maxillary sinus. Limited evaluation of the intracranial contents, with artifact from the cochlear implant. Suprahyoid Neck: The nasopharynx, field mechanical meter tester and parapharyngeal spaces appear within normal limits with a normal appearance to the oropharynx and soft palate. The oral cavity is partially obscured by hardware artifact from dental amalgam. Within these limitations, the visualized base of the tongue and floor of the mouth structures are symmetric and appear grossly intact. The parotid gland on the right is normal in morphology and attenuation similar to previous CT. There is nonspecific hyperdense soft tissue noted along the posterolateral margin of the superficial lobe of the right parotid gland and along the inferior margin of the pinna which is unchanged in appearance from the previous study, but is of indeterminate origin. This appears to be inseparable/indistinguishable from a portion of the adjacent sternocleidomastoid muscle also unchanged. Question whether there has been previous surgery in this region. Note is made of a 2.8 x 2.0 x 2.5 cm mass between the superficial lobe of the left parotid gland and the sternocleidomastoid muscle. On retrospective review of the previous study, this was present and has increased in size. This measured 1.7 x 1.1 x 2.1 cm on the previous study. An enlarging left parotid mass is suspected. There are multiple small, normal-sized, nonpathologic-appearing bilateral submandibular space lymph nodes similar in appearance to the previous study. There is a 0.7 x 1.3 cm lymph node at level IIIB on the left with no significant change in dimensions from previous exam but with a slightly different orientation on the current study, which makes this an indeterminate finding. Small, non enlarged bilateral IJ chain lymph nodes are noted similar to the previous exam. Infrahyoid Neck: The hypopharynx and larynx are unchanged in appearance from previous CT. The thyroid gland is partially obscured by streak and beam hardening artifact from the shoulders. This limits the examination. The retroclavicular soft tissues are obscured on the left and appear unremarkable on the right. Cannot exclude lymphadenopathy and/or masses in the lower left neck related to this. There is a 0.7 x 1.3 cm lymph node at level IIIB on the left with no significant change in dimensions from previous exam but with a slightly different orientation on current study, which makes this an indeterminate finding. Upper Chest: Multiple lymph nodes are seen in the mediastinum with the largest of these in the prevascular space of the anterior mediastinum measuring 0.7 cm greatest short axis by 1.3 cm long axis. The visualized lung parenchyma is grossly unremarkable within the limitations of an expiratory phase exam. Skeletal: Lordotic reversal similar to previous CT with multilevel cervicothoracic DDD and spondylosis similar to the prior CT. No focally aggressive osseous lesion. Other Comments: None. CT/CT soft tissue neck wo con IMPRESSION: 1. Findings consistent with an enlarging left parotid mass. Recommend ENT consult. 2. 1.3 x 0.7 cm indeterminate lymph node at level IIIB on the left. See above. 3. Band-like hyperdense soft tissue in the right infra-auricular and periparotid space stable in appearance when compared to previous CT of the cervical spine. Correlate for any history of surgery in this region. Question fibrovascular scar tissue or other post treatment or post traumatic changes. 4. Atheromatous calcification of both carotid bulbs. Suggest correlation for any bruits. 5. Limited evaluation of the lower neck due to beam hardening artifact with extensive obscuration of this region. 6. Multiple mediastinal lymph nodes are noted with one of these in the prevascular space of the anterior mediastinum being slightly prominent. Cannot exclude lymphadenopathy. 7. Multilevel cervical thoracic DDD and spondylosis similar to previous study. The [facility] staff will call to confirm receipt of this report with acknowledgement of the findings and any recommendations.
[2021-04-27 12:46] LABS: MANUAL DIFF FLAG NO
[2021-04-27 13:10] LABS: Basophils Percent Auto 0.2 % (0-2); Eosinophils Absolute Auto 0.4 X10*3/uL (0.0-0.4); Eosinophils Percent Auto 3.8 % (0-4); Imm Gran Abs Auto 0.03 X10*3/uL (0.00-0.03); Imm Gran Pct Auto 0.3 % (0.0-0.4); Lymphocytes Absolute Auto 2.3 X10*3/uL (1.2-4.9); Lymphocytes Percent Auto 22.5 % (20-40); Mean Corpuscular HGB Conc 32.5 g/dl (31.0-36.0); Mean Corpuscular Volume 95.2 fL (80.0-98.0); Mean Platelet Volume 11.2 fL (9.4-12.4); Monocytes Absolute Auto 1.1 X10*3/uL (0.1-1.2); Monocytes Percent Auto 10.9 % (2-11); Neutrophils Absolute Auto 6.3 x10*3/uL (2.0-8.3); Neutrophils Percent Auto 62.3 % (45-73); Platelet Count 190 X10*3/uL (160-400); Red Cell Distribution Width 13.2 % (11.0-16.0); White Blood Count 10.1 X10*3/uL (4.8-10.8)
[2021-04-27 13:18] LABS: Appearance Urine HAZY; Color Urine YELLOW; Glucose Urine UA NEG (NEG); Leukocyte Esterase Urine TRACE (NEG); Nitrite Urine NEG (NEG); Urine Blood NEG (NEG); Urine Ketones NEG (NEG); Urine Protein 1+ MG/DL (NEG-TRACE)
[2021-04-27 13:43] LABS: Creatinine Urine 217.49 mg/dL; Microalbum/Creatinine Ratio Ur 17.4 ug/mg cr
[2021-04-27 13:46] LABS: Bacteria Urine TRACE /LPF; Mucus Urine 1+ /LPF; RBC Urine 0 /HPF (0); Squamous Epithelial Cell Urine 2+ /LPF
[2021-04-27 13:47] LABS: Alanine Aminotransferase 10 U/L (0-40); Albumin Level 4.1 g/dL (3.5-5.0); Alkaline Phosphatase 59 U/L (39-117); Amylase 50 U/L (28-100); Anion Gap 12 (12-20); Aspartate Amino Transferase 24 U/L (5-37); Bilirubin Total 1.1 mg/dL (0.0-1.0); Blood Urea Nitrogen 18 mg/dL (9-16); C Reactive Protein 0.21 mg/dL (< or = 0.50); Calcium 9.9 mg/dL (8.4-10.2); Carbon Dioxide 33 mmol/L (22-29); Chloride 104 mmol/L (96-108); Cholesterol 145 mg/dL; Estimated Glomerular Filt Rate > 60; Glucose Fasting 56 mg/dL (60-99); HDL Cholesterol 40 mg/dL; LDL Cholesterol Calculated 83 mg/dl; Potassium 4.6 mmol/L (3.3-5.1); Sodium 144 mmol/L (135-145); Total Protein 6.6 g/dL (6.5-8.0); Triglycerides 113 mg/dL
[2021-04-27 14:04] LABS: Prostate Specific Antigen 0.67 ng/mL (<0.05-4.0)
[2021-04-27 14:20] LABS: Lactate Dehydrogenase 273 U/L (118-273)
[2021-04-27 14:22] LABS: Estimated Average Glucose 123 mg/dL; Hemoglobin A1c % 5.9 %
== END 2021-04-27 12:30 | disposition home or self-care (01) ==
LOC: HO.CT 12:29
PROVIDERS: PCP Internal Medicine; Visit Provider Internal Medicine
DX: E11.9 Type 2 diabetes mellitus without complications (principal); I48.91 Unspecified atrial fibrillation; E78.00 Pure hypercholesterolemia, unspecified; N40.0 Benign prostatic hyperplasia without lower urinary tract symptoms; R59.0 Localized enlarged lymph nodes; Z12.5 Encounter for screening for malignant neoplasm of prostate
CPT/HCPCS: 36415; 70490; 80053; 80061; 81001; 82043; 82150; 83036; 83615; 84153; 85025; 86140

== ENCOUNTER → 2021-05-07 08:03 | Outpatient (BNVA) | payer MEDICARE, SELFPAY | PROVIDERS: PCP Internal Medicine; Visit Provider Internal Medicine | DX: I48.20 Chronic atrial fibrillation, unspecified (principal); Z51.81 Encounter for therapeutic drug level monitoring; Z79.01 Long term (current) use of anticoagulants | CPT/HCPCS: 85610; 99211 ==

== ENCOUNTER → 2021-06-04 08:01 | Outpatient (BNVA) | payer MEDICARE, SELFPAY | PROVIDERS: PCP Internal Medicine; Visit Provider Internal Medicine | DX: I48.20 Chronic atrial fibrillation, unspecified (principal); Z51.81 Encounter for therapeutic drug level monitoring; Z79.01 Long term (current) use of anticoagulants | CPT/HCPCS: 85610; 99211 ==

== ENCOUNTER → 2021-06-07 08:03 | Outpatient (BNVA) | payer MEDICARE, SELFPAY | PROVIDERS: PCP Internal Medicine; Visit Provider Internal Medicine | DX: I48.20 Chronic atrial fibrillation, unspecified (principal); Z51.81 Encounter for therapeutic drug level monitoring; Z79.01 Long term (current) use of anticoagulants | CPT/HCPCS: 85610; 99211 ==

== ENCOUNTER → 2021-06-21 08:08 | Outpatient (BNVA) | payer MEDICARE, SELFPAY | PROVIDERS: PCP Internal Medicine; Visit Provider Internal Medicine | DX: I48.20 Chronic atrial fibrillation, unspecified (principal); Z79.01 Long term (current) use of anticoagulants; Z51.81 Encounter for therapeutic drug level monitoring | CPT/HCPCS: 85610; 99211 ==

== ENCOUNTER → 2021-06-26 08:44 | Outpatient (BNVA) | payer MEDICARE, SELFPAY | PROVIDERS: PCP Internal Medicine; Referring Provider Internal Medicine; Visit Provider Internal Medicine | DX: I11.0 Hypertensive heart disease with heart failure (principal); I50.813 Acute on chronic right heart failure; I48.19 Other persistent atrial fibrillation; I49.3 Ventricular premature depolarization; E11.9 Type 2 diabetes mellitus without complications; G47.33 Obstructive sleep apnea (adult) (pediatric); Z79.01 Long term (current) use of anticoagulants; Z79.4 Long term (current) use of insulin; Z79.899 Other long term (current) drug therapy | CPT/HCPCS: 93005; 99212 ==

== ENCOUNTER 2021-06-29 06:20 | Outpatient (REF) | payer MEDICARE, SELFPAY ==
[2021-06-29 07:52] LABS: Anion Gap 11 (12-20); Blood Urea Nitrogen 20 mg/dL (9-16); Calcium 9.5 mg/dL (8.4-10.2); Carbon Dioxide 34 mmol/L (22-29); Chloride 99 mmol/L (96-108); Estimated Glomerular Filt Rate > 60; Glucose Random 141 mg/dL (60-115); Potassium 4.2 mmol/L (3.3-5.1); Sodium 140 mmol/L (135-145)
== END 2021-06-29 06:21 | disposition home or self-care (01) ==
LOC: HO.LAB 06:20
PROVIDERS: PCP Internal Medicine; Visit Provider Internal Medicine
DX: I50.813 Acute on chronic right heart failure (principal)
CPT/HCPCS: 36415; 80048

== ENCOUNTER → 2021-07-06 08:00 | Outpatient (BNVA) | payer MEDICARE, SELFPAY | PROVIDERS: PCP Internal Medicine; Visit Provider Internal Medicine | DX: I48.20 Chronic atrial fibrillation, unspecified (principal); Z79.01 Long term (current) use of anticoagulants; Z51.81 Encounter for therapeutic drug level monitoring | CPT/HCPCS: 85610; 99211 ==

== ENCOUNTER → 2021-07-20 08:02 | Outpatient (BNVA) | payer MEDICARE, SELFPAY | PROVIDERS: PCP Internal Medicine; Visit Provider Internal Medicine | DX: I48.20 Chronic atrial fibrillation, unspecified (principal); Z79.01 Long term (current) use of anticoagulants; Z51.81 Encounter for therapeutic drug level monitoring | CPT/HCPCS: 85610; 99211 ==

== ENCOUNTER → 2021-08-17 08:02 | Outpatient (BNVA) | payer MEDICARE, SELFPAY | PROVIDERS: PCP Internal Medicine; Visit Provider Internal Medicine | DX: I48.20 Chronic atrial fibrillation, unspecified (principal); Z79.01 Long term (current) use of anticoagulants; Z51.81 Encounter for therapeutic drug level monitoring | CPT/HCPCS: 85610; 99211 ==

== ENCOUNTER 2021-08-20 07:15 | Outpatient (REF) | payer MEDICARE, SELFPAY ==
[2021-08-20 08:26] LABS: Anion Gap 13 (12-20); B Type Natriuretic Peptide 124 pg/mL (<100); Blood Urea Nitrogen 23 mg/dL (9-16); Calcium 9.7 mg/dL (8.4-10.2); Carbon Dioxide 35 mmol/L (22-29); Chloride 96 mmol/L (96-108); Estimated Glomerular Filt Rate > 60; Glucose Random 91 mg/dL (60-115); Sodium 140 mmol/L (135-145)
== END 2021-08-20 07:16 | disposition home or self-care (01) ==
LOC: HO.LAB 07:15
PROVIDERS: PCP Internal Medicine; Visit Provider Internal Medicine
DX: I50.813 Acute on chronic right heart failure (principal)
CPT/HCPCS: 36415; 80048; 83880

== ENCOUNTER → 2021-09-11 09:59 | Outpatient (BNVA) | payer MEDICARE, SELFPAY | PROVIDERS: PCP Internal Medicine; Referring Provider Internal Medicine; Visit Provider Internal Medicine | DX: I48.19 Other persistent atrial fibrillation (principal); I11.0 Hypertensive heart disease with heart failure; I50.812 Chronic right heart failure; I49.3 Ventricular premature depolarization; E11.8 Type 2 diabetes mellitus with unspecified complications; G47.33 Obstructive sleep apnea (adult) (pediatric); Z79.01 Long term (current) use of anticoagulants; Z79.4 Long term (current) use of insulin | CPT/HCPCS: 99212 ==

== ENCOUNTER → 2021-09-14 07:54 | Outpatient (BNVA) | payer MEDICARE, SELFPAY | PROVIDERS: PCP Internal Medicine; Visit Provider Internal Medicine | DX: I48.20 Chronic atrial fibrillation, unspecified (principal); Z79.01 Long term (current) use of anticoagulants; Z51.81 Encounter for therapeutic drug level monitoring | CPT/HCPCS: 85610; 99211 ==

== ENCOUNTER 2021-10-12 06:58 | Outpatient (REF) | payer MEDICARE, SELFPAY ==
[2021-10-12 07:05] LABS: MANUAL DIFF FLAG NO
[2021-10-12 07:24] LABS: Basophils Percent Auto 0.3 % (0-2); Eosinophils Absolute Auto 0.3 X10*3/uL (0.0-0.4); Eosinophils Percent Auto 3.6 % (0-4); Hematocrit 39.2 % (42.0-52.0); Hemoglobin 13.2 g/dl (14.0-18.0); Imm Gran Abs Auto 0.07 X10*3/uL (0.00-0.03); Imm Gran Pct Auto 0.8 % (0.0-0.4); Lymphocytes Absolute Auto 1.9 X10*3/uL (1.2-4.9); Lymphocytes Percent Auto 21.5 % (20-40); Mean Corpuscular HGB Conc 33.7 g/dl (31.0-36.0); Mean Corpuscular Volume 94.9 fL (80.0-98.0); Mean Platelet Volume 10.5 fL (9.4-12.4); Monocytes Percent Auto 11.7 % (2-11); Neutrophils Absolute Auto 5.5 x10*3/uL (2.0-8.3); Neutrophils Percent Auto 62.1 % (45-73); Platelet Count 225 X10*3/uL (160-400); Red Blood Count 4.13 X10*6/uL (4.60-5.80); Red Cell Distribution Width 14.2 % (11.0-16.0); White Blood Count 8.8 X10*3/uL (4.8-10.8)
[2021-10-12 07:38] LABS: Alanine Aminotransferase 12 U/L (0-40); Albumin Level 4.2 g/dL (3.5-5.0); Alkaline Phosphatase 78 U/L (39-117); Anion Gap 15 (12-20); Aspartate Amino Transferase 26 U/L (5-37); Bilirubin Total 0.7 mg/dL (0.0-1.0); Blood Urea Nitrogen 20 mg/dL (9-16); Calcium 9.3 mg/dL (8.4-10.2); Carbon Dioxide 35 mmol/L (22-29); Chloride 96 mmol/L (96-108); Estimated Glomerular Filt Rate > 60; Glucose Random 79 mg/dL (60-115); Sodium 142 mmol/L (135-145); Total Protein 7.2 g/dL (6.5-8.0)
[2021-10-12 07:39] LABS: Estimated Average Glucose 140 mg/dL; Hemoglobin A1c % 6.5 %
== END 2021-10-12 06:59 | disposition home or self-care (01) ==
LOC: HO.LAB 06:58
PROVIDERS: PCP Internal Medicine; Visit Provider Internal Medicine
DX: I48.20 Chronic atrial fibrillation, unspecified (principal); E11.9 Type 2 diabetes mellitus without complications; I10 Essential (primary) hypertension; Z51.81 Encounter for therapeutic drug level monitoring; Z79.01 Long term (current) use of anticoagulants
CPT/HCPCS: 36415; 80053; 83036; 85025; 85610; 99211

== ENCOUNTER → 2021-11-09 08:03 | Outpatient (BNVA) | payer MEDICARE, SELFPAY | PROVIDERS: PCP Internal Medicine; Visit Provider Internal Medicine | DX: I48.20 Chronic atrial fibrillation, unspecified (principal); Z51.81 Encounter for therapeutic drug level monitoring; Z79.01 Long term (current) use of anticoagulants | CPT/HCPCS: 85610; 99211 ==

== ENCOUNTER → 2021-11-29 08:16 | Outpatient (BNVA) | payer MEDICARE, SELFPAY | PROVIDERS: PCP Internal Medicine; Visit Provider Internal Medicine | DX: I48.20 Chronic atrial fibrillation, unspecified (principal); Z79.01 Long term (current) use of anticoagulants; Z51.81 Encounter for therapeutic drug level monitoring | CPT/HCPCS: 85610; 99211 ==

== ENCOUNTER → 2021-12-06 08:52 | Outpatient (BNVA) | payer MEDICARE, SELFPAY | PROVIDERS: PCP Internal Medicine; Visit Provider Internal Medicine | DX: I48.20 Chronic atrial fibrillation, unspecified (principal); Z79.01 Long term (current) use of anticoagulants; Z51.81 Encounter for therapeutic drug level monitoring | CPT/HCPCS: 85610; 99211 ==

== ENCOUNTER → 2021-12-14 08:01 | Outpatient (BNVA) | payer MEDICARE, SELFPAY | PROVIDERS: PCP Internal Medicine; Visit Provider Internal Medicine | DX: I48.20 Chronic atrial fibrillation, unspecified (principal); Z79.01 Long term (current) use of anticoagulants; Z51.81 Encounter for therapeutic drug level monitoring | CPT/HCPCS: 85610; 99211 ==

== ENCOUNTER → 2022-01-11 08:00 | Outpatient (BNVA) | payer MEDICARE, SELFPAY | PROVIDERS: PCP Internal Medicine; Visit Provider Internal Medicine | DX: I48.20 Chronic atrial fibrillation, unspecified (principal); Z79.01 Long term (current) use of anticoagulants; Z51.81 Encounter for therapeutic drug level monitoring | CPT/HCPCS: 85610; 99211 ==

== ENCOUNTER 2022-01-22 09:42 | Outpatient (REF) | payer MEDICARE, SELFPAY ==
[2022-01-22 10:37] LABS: MANUAL DIFF FLAG NO
[2022-01-22 10:44] LABS: Basophils Percent Auto 0.3 % (0-2); Eosinophils Absolute Auto 0.3 X10*3/uL (0.0-0.4); Hematocrit 42.9 % (42.0-52.0); Hemoglobin 14.1 g/dl (14.0-18.0); Imm Gran Abs Auto 0.04 X10*3/uL (0.00-0.03); Imm Gran Pct Auto 0.4 % (0.0-0.4); Lymphocytes Absolute Auto 1.8 X10*3/uL (1.2-4.9); Lymphocytes Percent Auto 18.3 % (20-40); Mean Corpuscular HGB Conc 32.9 g/dl (31.0-36.0); Mean Corpuscular Hemoglobin 31.3 pg (27.0-33.0); Mean Corpuscular Volume 95.3 fL (80.0-98.0); Mean Platelet Volume 10.7 fL (9.4-12.4); Monocytes Percent Auto 9.9 % (2-11); Neutrophils Absolute Auto 6.7 x10*3/uL (2.0-8.3); Neutrophils Percent Auto 68.1 % (45-73); Platelet Count 231 X10*3/uL (160-400); Red Cell Distribution Width 13.7 % (11.0-16.0); White Blood Count 9.8 X10*3/uL (4.8-10.8)
[2022-01-22 11:29] LABS: Alanine Aminotransferase 13 U/L (0-40); Albumin Level 4.3 g/dL (3.5-5.0); Alkaline Phosphatase 69 U/L (39-117); Anion Gap 16 (12-20); Aspartate Amino Transferase 27 U/L (5-37); Bilirubin Total 0.5 mg/dL (0.0-1.0); Blood Urea Nitrogen 22 mg/dL (9-16); Calcium 9.7 mg/dL (8.4-10.2); Carbon Dioxide 34 mmol/L (22-29); Chloride 98 mmol/L (96-108); Estimated Glomerular Filt Rate > 60; Glucose Fasting 60 mg/dL (60-99); Iron 77 mcg/dL (45-160); Percent Iron Saturation 19 % (15-50); Potassium 3.8 mmol/L (3.3-5.1); Sodium 144 mmol/L (135-145); Total Iron Binding Capacity 397 mcg/dL (228-428); Total Protein 7.2 g/dL (6.5-8.0); Unsaturated Iron Binding 320 ug/dL
[2022-01-22 11:47] LABS: Estimated Average Glucose 131 mg/dL; Hemoglobin A1c % 6.2 %
== END 2022-01-22 09:43 | disposition home or self-care (01) ==
LOC: HO.10HDL 09:42
PROVIDERS: Visit Provider Internal Medicine
DX: E11.9 Type 2 diabetes mellitus without complications (principal); I48.91 Unspecified atrial fibrillation; I10 Essential (primary) hypertension
CPT/HCPCS: 36415; 80053; 83036; 83540; 85025

== ENCOUNTER → 2022-02-04 08:14 | Outpatient (BNVA) | payer MEDICARE, SELFPAY | PROVIDERS: PCP Internal Medicine; Visit Provider Internal Medicine | DX: I48.20 Chronic atrial fibrillation, unspecified (principal); Z79.01 Long term (current) use of anticoagulants; Z51.81 Encounter for therapeutic drug level monitoring | CPT/HCPCS: 85610; 99211 ==

== ENCOUNTER → 2022-03-07 08:04 | Outpatient (BNVA) | payer MEDICARE, SELFPAY | PROVIDERS: PCP Internal Medicine; Visit Provider Internal Medicine | DX: I48.20 Chronic atrial fibrillation, unspecified (principal); Z79.01 Long term (current) use of anticoagulants; Z51.81 Encounter for therapeutic drug level monitoring | CPT/HCPCS: 85610; 99211 ==

== ENCOUNTER → 2022-03-19 08:13 | Outpatient (BNVA) | payer MEDICARE, SELFPAY | PROVIDERS: PCP Internal Medicine; Referring Provider Internal Medicine; Visit Provider Internal Medicine | DX: I48.19 Other persistent atrial fibrillation (principal); I11.0 Hypertensive heart disease with heart failure; I50.812 Chronic right heart failure; I49.3 Ventricular premature depolarization; E11.8 Type 2 diabetes mellitus with unspecified complications; G47.33 Obstructive sleep apnea (adult) (pediatric); Z79.01 Long term (current) use of anticoagulants; Z79.4 Long term (current) use of insulin; Z79.899 Other long term (current) drug therapy | CPT/HCPCS: 93005; 99212 ==

== ENCOUNTER → 2022-03-20 12:14 | Outpatient (BNVA) | payer MEDICARE, SELFPAY | PROVIDERS: PCP Internal Medicine; Visit Provider Orthopaedic Surgery | DX: R20.0 Anesthesia of skin (principal) | CPT/HCPCS: 99202 ==

== ENCOUNTER → 2022-04-04 08:21 | Outpatient (BNVA) | payer MEDICARE, SELFPAY | PROVIDERS: PCP Internal Medicine; Visit Provider Internal Medicine | DX: I48.20 Chronic atrial fibrillation, unspecified (principal); Z79.01 Long term (current) use of anticoagulants; Z51.81 Encounter for therapeutic drug level monitoring | CPT/HCPCS: 85610; 99211 ==

== ENCOUNTER 2022-04-17 08:00 | Outpatient (RCR) | payer MEDICARE, SELFPAY ==
--- NOTE | 2022-04-17 08:49 | MHC.OT.DC ---
[address] [phone] F: [phone] Occupational Therapy Discharge Note Provider: Dr Maribeth Begum Diagnosis: B/L Hand Pain and Numbness Date of Evaluation: 04/03/22 Date of Discharge: 04/17/22 Treatments to Date: 3 Discharge Status: Independent with HEP Recommend MD Follow-up Discharge Summary: Leonardo was referred to OT w/ B/L hand numbness. OT assessment not consistent with specific nerve entrapment or dysfunction, but more general peripheral neuropathy, and pt reports he also has diabetic neuropathy w/ impaired sensation to both feet. We have educated Leonardo on general safety awareness with care of hands and mindfulness of temperatures and potential harmful/sharp objects due to impaired protective sensation. We have trialed adaptive equipment to ease self feeding and gripping objects, but he has continued to have difficulty with everyday activities. He has good follow through w/ home exercises for hand strength and range, and demo's improving digit range over a few visits. Primary limitation is numbness in hands and decreased awareness and he would benefit from follow up w/ medical team. Electronically Signed By: Elina Griggs, OTR/L CHT Please Sign and return to therapist, thank you for your referral.
== END 2022-04-17 08:51 | disposition home or self-care (01) ==
LOC: HO.OT 08:00
PROVIDERS: PCP Internal Medicine; Visit Provider Orthopaedic Surgery
DX: R20.0 Anesthesia of skin (principal)
CPT/HCPCS: 97110; 97140; 97165; 97535

== ENCOUNTER 2022-04-23 10:20 | Outpatient (REF) | payer MEDICARE, SELFPAY ==
[2022-04-23 13:39] LABS: MANUAL DIFF FLAG NO
[2022-04-23 13:41] LABS: Basophils Percent Auto 0.1 % (0-2); Eosinophils Absolute Auto 0.2 X10*3/uL (0.0-0.4); Eosinophils Percent Auto 2.3 % (0-4); Hemoglobin 12.6 g/dl (14.0-18.0); Imm Gran Abs Auto 0.04 X10*3/uL (0.00-0.03); Imm Gran Pct Auto 0.4 % (0.0-0.4); Lymphocytes Absolute Auto 1.5 X10*3/uL (1.2-4.9); Mean Corpuscular HGB Conc 32.3 g/dl (31.0-36.0); Mean Corpuscular Hemoglobin 31.5 pg (27.0-33.0); Mean Corpuscular Volume 97.5 fL (80.0-98.0); Mean Platelet Volume 11.7 fL (9.4-12.4); Monocytes Absolute Auto 0.9 X10*3/uL (0.1-1.2); Monocytes Percent Auto 10.3 % (2-11); Neutrophils Absolute Auto 6.4 x10*3/uL (2.0-8.3); Neutrophils Percent Auto 70.9 % (45-73); Platelet Count 185 X10*3/uL (160-400); Red Cell Distribution Width 14.1 % (11.0-16.0); White Blood Count 9.1 X10*3/uL (4.8-10.8)
[2022-04-23 13:47] LABS: INTERNATIONAL NORM RATIO 2.7 (0.9-1.1); Prothrombin Time 31.7 SEC (10.0-13.1)
[2022-04-23 14:01] LABS: B Type Natriuretic Peptide 115 pg/mL (<100)
[2022-04-23 14:09] LABS: Estimated Average Glucose 108 mg/dL; Hemoglobin A1c % 5.4 %
[2022-04-23 14:29] LABS: Alanine Aminotransferase 9 U/L (0-40); Alkaline Phosphatase 69 U/L (39-117); Anion Gap 15 (12-20); Aspartate Amino Transferase 24 U/L (5-37); Bilirubin Total 1.1 mg/dL (0.0-1.0); Blood Urea Nitrogen 18 mg/dL (9-16); Calcium 9.4 mg/dL (8.4-10.2); Carbon Dioxide 31 mmol/L (22-29); Chloride 103 mmol/L (96-108); Estimated Glomerular Filt Rate > 60; Glucose Random 59 mg/dL (60-115); Potassium 4.8 mmol/L (3.3-5.1); Sodium 144 mmol/L (135-145); Total Protein 6.4 g/dL (6.5-8.0)
[2022-04-23 14:41] LABS: Thyroid Stimulating Hormone 1.28 uIU/mL (0.32-4.0)
== END 2022-04-23 10:21 | disposition home or self-care (01) ==
LOC: HO.10HDL 10:20
PROVIDERS: Visit Provider Internal Medicine
DX: R60.9 Edema, unspecified (principal); I48.91 Unspecified atrial fibrillation; R63.5 Abnormal weight gain; E11.9 Type 2 diabetes mellitus without complications
CPT/HCPCS: 36415; 80053; 83036; 83880; 84439; 84443; 85025; 85610

== ENCOUNTER → 2022-04-26 09:31 | Outpatient (REF) | payer MEDICARE, SELFPAY ==
--- NOTE | 2022-04-26 09:35 | CA_ITS ---
Transthoracic Echocardiogram Patient (Last, First, Middle): Leonardo Pang J Gender: Male Date of : 1950 Age: 72 Procedure Date: 04/26/2022 Procedure Type: Transthoracic Echocardiogram Location: OP Height: 172. cm Weight: 122.47 kg BSA: 2.31 m2 Heart Rate: bpm BP: 122 / 64 mmHg Supervisor Cigar Processing: SB Referring MD: Darien Bruner MD Symptoms: R60.9 EDEMA Study Quality: Fair w contrast ECG Rhythm: Atrial Fibrillation Conclusions: - Limited study. - Low normal LVEF. - Significantly elevated right atrial pressure. Mild pulmonary hypertension is present. - There is mild dilatation of the sinuses of Valsalva measuring 3.70 cm. Findings Procedure Information Contrast agent, definity, is being given per protocol without apparent complications. Left Ventricle Normal left ventricular cavity size. The left ventricular systolic function is low normal. The visually estimated ejection fraction is between 50-55%. There is no evidence of regional wall motion abnormalities. Diastolic function is indeterminate on the basis of available data. Right Ventricle The right ventricle was not well visualized. Atria The left atrium was not well visualized. There is an interatrial septal aneurysm seen. The right atrium is normal in size. Aortic Valve There is a normal trileaflet aortic valve. There is mild calcification of the aortic valve. There is no aortic valve stenosis. There is no aortic valve regurgitation. Mitral Valve The mitral valve was not well visualized. There is mild mitral annular calcification. There is trace mitral valve regurgitation. There is no mitral valve stenosis. Pulmonic Valve The pulmonic valve was not well visualized. Tricuspid Valve The tricuspid valve was not well visualized. Significantly elevated right atrial pressure. Mild pulmonary hypertension is present. Great Vessels All visible segments of the aorta are normal in size. There is mild dilatation of the sinuses of Valsalva measuring 3.70 cm. The visualized portions of the pulmonary artery and branches are normal. Venous The inferior vena cava is dilated and does not collapse with inspiration. Pericardium/Pleural There is no evidence of pericardial effusion. Prior Study Comparison Changes noted compared to prior study dated: 05/09/2020. Low normal LVEF. Mild pulm HTN. Signifciantly elevated RA pressures. Measurements 2D Linear Measurements IVSd: 0.97 0.6-0.9/0.6-1.0 cm LVIDd: 5.45 3.9-5.3/4.2-5.9 cm LVIDd Index: 2.36 2.4-3.2/2.2-3.1 cm/m2 LVIDs: 3.95 2.0-3.6 cm LVPWd: 0.90 0.7-1.1 cm LA Diam: 4.30 2.7-3.8/3.0-4.0 cm LAIDs Index: 1.86 1.5-2.3 cm/m2 LV Mass: 240.23 67-162/88-224 g LV Mass Index: 103.99 43-95/49-115 g/m2 LVOT Diam: 2.60 3.0+(-)1.3 cm 2D Systolic Function EF 4C: 58.70 >55% Mitral Valve MV Pk E: 1.12 Aortic Valve AoV Pk Corey: 1.25 AoV Pk Grad: 6.00 EUSEBIO: 4.30 LVOT LVOT Pk Corey: 0.87 LVOT Mn Corey: 0.56 LVOT VTI: 0.16 LVOT Pk Grad: 3.00 LVOT Mn Grad: 2.00 LVOT Diam: 2.60 LVOT Area: 5.31 Diastolic Function MV Pk E: 1.12 Tricuspid Valve TR Pk Corey: 2.29 TR Pk Grad: 21.00 RA Press: 15.00 RVSP: 37.00 Great Vessels Aorta Sinus of Valsalva: 3.70 2.0-3.5 cm Ao Asc: 3.10 2.1-3.4 cm Pulmonary Valve PV Pk Corey: 0.91 Peak PV Grad: 3.00 Updated in Other Vendor System with Status of Final Elias Mendoza MD electronically signed on 04/27/2022 3:48:12 PM with status of Final
== END ==
LOC: HO.CARD 09:31
PROVIDERS: PCP Internal Medicine; Visit Provider Internal Medicine
DX: R60.9 Edema, unspecified (principal)
CPT/HCPCS: 93306; Q9957

== ENCOUNTER → 2022-05-02 07:59 | Outpatient (BNVA) | payer MEDICARE, SELFPAY | PROVIDERS: PCP Internal Medicine; Visit Provider Internal Medicine | DX: I48.20 Chronic atrial fibrillation, unspecified (principal); Z79.01 Long term (current) use of anticoagulants; Z51.81 Encounter for therapeutic drug level monitoring | CPT/HCPCS: 85610; 99211 ==

== ENCOUNTER → 2022-05-16 07:57 | Outpatient (BNVA) | payer MEDICARE, SELFPAY | PROVIDERS: PCP Internal Medicine; Visit Provider Internal Medicine | DX: I48.20 Chronic atrial fibrillation, unspecified (principal); Z79.01 Long term (current) use of anticoagulants; Z51.81 Encounter for therapeutic drug level monitoring | CPT/HCPCS: 85610; 99211 ==

== ENCOUNTER 2022-05-30 12:26 | Outpatient (REF) | payer MEDICARE, SELFPAY ==
--- NOTE | 2022-05-30 09:15 | EMG_ITS ---
Bilateral median and ulnar motor and sensory studies were performed. Bilateral radial sensory studies were performed and paraspinal muscles were tested with a needle. 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 MD GEORGINA Anna/JURGEN / [id number]
== END 2022-05-30 12:27 | disposition home or self-care (01) ==
LOC: HO.NEURO 12:26
PROVIDERS: PCP Internal Medicine; Visit Provider Orthopaedic Surgery
DX: R20.0 Anesthesia of skin (principal); R20.2 Paresthesia of skin
CPT/HCPCS: 95886; 95911

== ENCOUNTER → 2022-06-14 08:04 | Outpatient (BNVA) | payer MEDICARE, SELFPAY | PROVIDERS: PCP Internal Medicine; Visit Provider Internal Medicine | DX: I48.20 Chronic atrial fibrillation, unspecified (principal); Z79.01 Long term (current) use of anticoagulants; Z51.81 Encounter for therapeutic drug level monitoring | CPT/HCPCS: 85610; 99211 ==

== ENCOUNTER → 2022-06-25 08:53 | Outpatient (BNVA) | payer MEDICARE, SELFPAY | PROVIDERS: PCP Internal Medicine; Visit Provider Orthopaedic Surgery | DX: G62.9 Polyneuropathy, unspecified (principal); M19.041 Primary osteoarthritis, right hand; M19.042 Primary osteoarthritis, left hand | CPT/HCPCS: 99212 ==

== ENCOUNTER → 2022-07-12 08:06 | Outpatient (BNVA) | payer MEDICARE, SELFPAY | PROVIDERS: PCP Internal Medicine; Visit Provider Internal Medicine | DX: I48.20 Chronic atrial fibrillation, unspecified (principal); Z79.01 Long term (current) use of anticoagulants; Z51.81 Encounter for therapeutic drug level monitoring | CPT/HCPCS: 85610; 99211 ==

== ENCOUNTER 2022-07-25 08:41 | Outpatient (REF) | payer MEDICARE, SELFPAY ==
[2022-07-25 10:17] LABS: Urine Cytology See Pathology rpt
[2022-07-25 10:31] LABS: Baso%MD 0.2 %; Eos%MD 2.6 %; Hematocrit 38.7 % (42.0-52.0); Hemoglobin 12.7 g/dl (14.0-18.0); IG%MD 0.2 %; Lymph%MD 14.8 %; Mean Corpuscular HGB Conc 32.8 g/dl (31.0-36.0); Mean Corpuscular Hemoglobin 31.1 pg (27.0-33.0); Mean Corpuscular Volume 94.9 fL (80.0-98.0); Mono%MD 10.9 %; Neut%MD 71.3 %; Platelet Count 164 X10*3/uL (160-400); Red Blood Count 4.08 X10*6/uL (4.60-5.80); Red Cell Distribution Width 14.2 % (11.0-16.0); White Blood Count 8.9 X10*3/uL (4.8-10.8)
[2022-07-25 10:32] LABS: Appearance Urine Clear; Color Urine Yellow; Glucose Urine UA Negative (Negative); Leukocyte Esterase Urine Small (1+) (Negative); Nitrite Urine Negative (Negative); PH 6.5 (5.0-9.0); Specific Gravity - Urine 1.025 (1.005-1.025); UMIC TRIGGER UACC YES; Urine Blood Negative (Negative); Urine Ketones Trace mg/dL (Negative); Urine Protein 30 (1+) mg/dL (Neg-Trace)
[2022-07-25 10:35] LABS: Bacteria Urine None Seen (None Seen); Hyaline Casts Urine 0-2 /LPF (0-2); RBC Urine 0-2 /HPF (0-2); Squamous Epithelial Cell Urine 0-2 /HPF (0-2); UACC Culture Trigger YES
[2022-07-25 10:48] LABS: Estimated Average Glucose 123 mg/dL; Hemoglobin A1c % 5.9 %
[2022-07-25 11:01] LABS: Creatinine Urine 167.79 mg/dL; Microalbum/Creatinine Ratio Ur 33.9 ug/mg cr
[2022-07-25 11:04] LABS: Alanine Aminotransferase 12 U/L (0-40); Albumin Level 3.8 g/dL (3.5-5.0); Alkaline Phosphatase 74 U/L (39-117); Anion Gap 10 (12-20); Aspartate Amino Transferase 29 U/L (5-37); Bilirubin Total 0.9 mg/dL (0.0-1.0); Blood Urea Nitrogen 20 mg/dL (9-16); Calcium 9.2 mg/dL (8.4-10.2); Carbon Dioxide 31 mmol/L (22-29); Chloride 106 mmol/L (96-108); Estimated Glomerular Filt Rate > 60; Glucose Random 59 mg/dL (60-115); Potassium 4.1 mmol/L (3.3-5.1); Sodium 143 mmol/L (135-145); Total Protein 6.2 g/dL (6.5-8.0)
[2022-07-25 12:19] LABS: Band Neutrophils Percent 0 % (3-5); Eosinophils Absolute Manual 0.1 X10*3/uL (0.0-0.4); Eosinophils Percent Manual 1 % (0-4); Lymphocytes Absolute Manual 0.9 X10*3/uL (1.2-4.9); Lymphocytes Percent Manual 10 % (20-40); Monocytes Absolute Manual 0.9 X10*3/uL (0.1-1.2); Monocytes Percent Manual 10 % (2-11); Neutrophils Percent Manual 79 % (45-73)
[2022-07-25 12:20] LABS: Platelet Estimate NORMAL (NORMAL); Platelet Morphology Comment NORMAL; RBC Morphology NORMAL
== END 2022-07-25 08:42 | disposition home or self-care (01) ==
LOC: HO.10HDL 08:41
PROVIDERS: Visit Provider Internal Medicine
DX: E11.9 Type 2 diabetes mellitus without complications (principal); I48.91 Unspecified atrial fibrillation; R31.9 Hematuria, unspecified
CPT/HCPCS: 36415; 80053; 81001; 82043; 83036; 85007; 85027; 87086; 88112

== ENCOUNTER → 2022-08-09 08:03 | Outpatient (BNVA) | payer MEDICARE, SELFPAY | PROVIDERS: PCP Internal Medicine; Visit Provider Internal Medicine | DX: I48.20 Chronic atrial fibrillation, unspecified (principal); Z79.01 Long term (current) use of anticoagulants; Z51.81 Encounter for therapeutic drug level monitoring | CPT/HCPCS: 85610; 99211 ==

== ENCOUNTER 2022-09-20 08:04 | Outpatient (AMB) | payer MEDICARE, SELFPAY ==
[2022-09-20 08:08] LABS: ~PT, ~INR - Anti Coag Clinic 2.2 (0.9-1.1)
--- NOTE | 2022-09-20 08:12 | MHC.OFFVISCO ---
Intake Intake Visit Reasons: Anticoagulation Allergies Penicillins [PENICILLINS] Allergy (Intermediate, Verified 09/20/22 08:05) rash- STATES BAD RXN CHILD Medication List - Last Reconciled 09/20/22 by Hanny Paulino RN blood sugar diagnostic As directed carvedilol 12.5 mg PO ONCE cholecalciferol (vitamin D3) 25 mcg PO DAILY diltiazem HCl ER 240 mg PO DAILY furosemide 40 mg PO 2 tablets //, 1 tablet all other days; glipizide ER 5 mg PO 2 in the morning, 1 at night; insulin glargine (Lantus Solostar U-100 Insulin) 30 units subcut BEDTIME metformin ER 1,500 mg PO DAILY xuqdokmiggal-ipoafypk-skxqmo 1 tab PO DAILY oxycodone-acetaminophen 5-325 mg 1 tab PO PRN pen needle, diabetic As directed pravastatin 80 mg PO DAILY tamsulosin 0.4 mg PO DAILY@1700 warfarin 4 mg See Protocol PO DAILY warfarin 2 mg See Protocol PO DAILY Nursing Note NO CP,SOB,DIET/MED CHANGES,FALLS OR SX OF BLEEDING. CONTINUE PRESENT DOSE AND FOLLOW-UP IN 5 WEEKS PRIOR TO COLONOSCOPY. GOOD UNDERSTANDING OF DOSING INSTR. Anti-Coag Initial Assessment Social Hx Patient Tobacco Use Status: Former Tobacco user Quit Date: 25 yrs ago alcohol intake: never Alcohol intake frequency: does not drink Coding Level of Care Code Est Patient Level 1 Diagnoses Current use of anticoagulant therapy Z79.01 Assessment & Plan Assessment & Plan (1) Current use of anticoagulant therapy: Code(s): Z79.01 - 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
== END 2022-09-20 08:14 | disposition home or self-care (01) ==
LOC: HO.ACS 08:04
PROVIDERS: PCP Internal Medicine; Visit Provider Internal Medicine
DX: Z79.01 Long term (current) use of anticoagulants (principal)

== ENCOUNTER → 2022-09-20 08:04 | Outpatient (BNVA) | payer MEDICARE, SELFPAY | PROVIDERS: PCP Internal Medicine; Visit Provider Internal Medicine | DX: I48.20 Chronic atrial fibrillation, unspecified (principal); Z79.01 Long term (current) use of anticoagulants; Z51.81 Encounter for therapeutic drug level monitoring | CPT/HCPCS: 85610; 99211 ==

== ENCOUNTER 2022-10-02 07:58 | Outpatient (AMB) | payer MEDICARE, SELFPAY ==
--- NOTE | 2022-10-02 08:28 | MHC.OFFVIS ---
Intake Vital Signs 10/02/22 08:29 Height 5 ft 8 in Weight 276 lb 7.355 oz BMI 42.0 BP 128/66 Blood Pressure Location Lt brachial Position Sitting Pulse 52 Intake Visit Reasons: 6 mth fu Intake Note: 6 month follow up [employer] Required: No Accompanied by: Self / Same As Patient Allergies Penicillins [PENICILLINS] Allergy (Intermediate, Verified 10/02/22 08:30) rash- STATES BAD RXN CHILD Medication List - Last Reconciled 10/02/22 by Camacho Kirkland MD blood sugar diagnostic As directed carvedilol 12.5 mg PO ONCE cholecalciferol (vitamin D3) 25 mcg PO DAILY diltiazem HCl ER 240 mg PO DAILY furosemide 40 mg PO 2 tablets //, 1 tablet all other days; glipizide ER 5 mg PO 2 in the morning, 1 at night; insulin glargine (Lantus Solostar U-100 Insulin) 30 units subcut BEDTIME metformin ER 1,500 mg PO DAILY metolazone 2.5 mg orally twice/week; rhudxjjekwsd-iteouphm-kirtae 1 tab PO DAILY oxycodone-acetaminophen 5-325 mg 1 tab PO PRN pen needle, diabetic As directed pravastatin 80 mg PO DAILY tamsulosin 0.4 mg PO DAILY@1700 warfarin 4 mg See Protocol PO DAILY warfarin 2 mg See Protocol PO DAILY HPI HPI Comments History of Present Illness Details Leonardo returns for follow-up regarding various cardiac issues. He has a history of chronic atrial fibrillation treated by rate control. He also has chronic right-sided heart failure. Per patient, he has sleep apnea and had CPAP mask more than a decade ago but has not used a long time as it is very inconvenient. Overall, shortness of breath is just about the same. His legs are getting more swollen now than before and seems that he has gained a lot of weight as well. [facility] Medical History Anemia Atrial fibrillation BPH (benign prostatic hyperplasia) Chronic a-fib COPD (chronic obstructive pulmonary disease) Deafness in left ear Diabetes Essential hypertension GERD (gastroesophageal reflux disease) Hard of hearing History of amputation of toe Obesity JUDIE (obstructive sleep apnea) Osteoarthritis Osteoarthritis of left knee Peripheral edema Persistent atrial fibrillation Type 2 diabetes mellitus with unspecified complications Venous stasis Surgical History History of bilateral hip replacements Hx of colonoscopy Hx of total knee arthroplasty Hx of total shoulder replacement Uses cochlear implant Family History Father No problems noted. 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 Review of Systems Const Denies weakness ENT Denies dizziness Card Denies chest pain, Denies chest pain with activity, Denies syncope, Denies rapid heart rate, Denies pedal edema, Denies edema, Denies leg edema, Denies lightheadedness, Denies palpitations, Denies dyspnea, Denies dyspnea on exertion and Denies orthopnea Resp Denies cough, Denies dyspnea and Denies dyspnea on exertion GI Denies hematochezia and Denies change in stool character Musc Denies abnormal gait, Denies muscle cramps, Denies muscle weakness, Denies numbness, Denies radiating pain into limb and Denies tingling Neuro Denies abnormal gait, Denies dizziness, Denies syncope, Denies numbness, Denies tingling and Denies weakness Endo Denies palpitations Physical Exam Vital Signs: Last Vital Signs Pulse 52 10/02/22 08:29 BP 128/66 10/02/22 08:29 BMI result Body Mass Index 42.0 Const General: comfortable and no acute distress Orientation/consciousness: patient oriented x3 HEENT Other: Unremarkable Head: Yes normal to inspection Neck Neck: Yes normal visual inspection Chest Chest palpation & inspection: normal inspection of the chest Resp Auscultation: clear to auscultation bilaterally Cardio Palpation: normal PMI Heart sounds: S1 normal heart sound present, S2 normal heart sound present, no gallops, no murmurs and no rubs GI Palpation (GI): Soft to palpation Back/Spine/Pelvis Other: unremarkable Skin General skin exam: no rashes or lesions noted Neuro General: patient oriented x3 Extrem Other: 2+ edema. General: Yes normal to inspection Psych Mental Status: mental status grossly normal Assessment & Plan Assessment & Plan (1) Chronic right heart failure: Code(s): I50.812 - Chronic right heart failure Plan: Continue Lasix. Add metolazone 1 to 2 times a week. Discussed. Check labs in a few weeks after making this change. (2) Persistent atrial fibrillation: Code(s): I48.19 - Other persistent atrial fibrillation Plan: Remains on diltiazem and carvedilol. Off digoxin due to tiredness. Continue anticoagulation. (3) PVC (premature ventricular contraction): Code(s): I49.3 - Ventricular premature depolarization Plan: In the last Holter, he had frequent PVCs with a burden of about 5.6%. Longest run was about 3 beats. Some of them could also be aberrantly conducted atrial fibrillation. Continue diltiazem/Coreg as above. (4) Essential hypertension: Code(s): I10 - Essential (primary) hypertension Plan: Blood pressure seems within normal range. No changes made. (5) Type 2 diabetes mellitus with unspecified complications: Code(s): E11.8 - Type 2 diabetes mellitus with unspecified complications Plan: On Insulin, metformin, glipizide. Hemoglobin A1c is 5.9%. (6) JUDIE (obstructive sleep apnea): Code(s): G47.33 - Obstructive sleep apnea (adult) (pediatric) Plan: Prior sleep study had shown moderately severe obstructive sleep apnea-2016. Does not use CPAP and this has been discussed numerous times. Orders: Orders Basic Metabolic Panel 2 Months I50.22 - Chronic systolic (congestive) heart failure, I50.812 - Chronic right heart failure B Type Natriuretic Peptide 2 Months I50.812 - Chronic right heart failure Medications: New metolazone 2.5 mg orally twice/week; 30 tabs 3RF Coding Level of Care Code Est Pt Level 4 (86749) Diagnoses Chronic right heart failure I50.812 Persistent atrial fibrillation I48.19 PVC (premature ventricular contraction) I49.3 Essential hypertension I10 Type 2 diabetes mellitus with unspecified complications E11.8 JUDIE (obstructive sleep apnea) G47.33
[2022-10-02 08:29] VITALS: BP 128/66; PULSE 52; BMI 42.0
== END 2022-10-02 08:49 | disposition home or self-care (01) ==
PROVIDERS: Visit Provider Internal Medicine
DX: I50.812 Chronic right heart failure (principal); I48.19 Other persistent atrial fibrillation; I49.3 Ventricular premature depolarization; I10 Essential (primary) hypertension; E11.8 Type 2 diabetes mellitus with unspecified complications; G47.33 Obstructive sleep apnea (adult) (pediatric)
CPT/HCPCS: 99214

== ENCOUNTER → 2022-10-02 07:58 | Outpatient (BNVA) | payer MEDICARE, SELFPAY | PROVIDERS: Visit Provider Internal Medicine | DX: I11.0 Hypertensive heart disease with heart failure (principal); I50.812 Chronic right heart failure; I48.19 Other persistent atrial fibrillation; I49.3 Ventricular premature depolarization; E11.8 Type 2 diabetes mellitus with unspecified complications; G47.33 Obstructive sleep apnea (adult) (pediatric) | CPT/HCPCS: 36415; 80053; 83036; 85025; 99212 ==

== ENCOUNTER 2022-10-02 08:59 | Outpatient (REF) | payer MEDICARE, SELFPAY ==
[2022-10-02 10:51] LABS: MANUAL DIFF FLAG NO
[2022-10-02 11:01] LABS: Basophils Percent Auto 0.2 % (0-2); Eosinophils Absolute Auto 0.2 X10*3/uL (0.0-0.4); Eosinophils Percent Auto 1.9 % (0-4); Hemoglobin 13.1 g/dl (14.0-18.0); Imm Gran Abs Auto 0.03 X10*3/uL (0.00-0.03); Imm Gran Pct Auto 0.3 % (0.0-0.4); Lymphocytes Absolute Auto 1.3 X10*3/uL (1.2-4.9); Lymphocytes Percent Auto 13.1 % (20-40); Mean Corpuscular Hemoglobin 31.3 pg (27.0-33.0); Mean Corpuscular Volume 97.9 fL (80.0-98.0); Mean Platelet Volume 10.9 fL (9.4-12.4); Monocytes Percent Auto 9.9 % (2-11); Neutrophils Absolute Auto 7.3 x10*3/uL (2.0-8.3); Neutrophils Percent Auto 74.6 % (45-73); Platelet Count 182 X10*3/uL (160-400); Red Blood Count 4.19 X10*6/uL (4.60-5.80); Red Cell Distribution Width 13.5 % (11.0-16.0); White Blood Count 9.8 X10*3/uL (4.8-10.8)
[2022-10-02 11:20] LABS: Alanine Aminotransferase 13 U/L (0-40); Albumin Level 4.1 g/dL (3.5-5.0); Alkaline Phosphatase 75 U/L (39-117); Anion Gap 9 (12-20); Aspartate Amino Transferase 25 U/L (5-37); Bilirubin Total 0.8 mg/dL (0.0-1.0); Blood Urea Nitrogen 17 mg/dL (9-16); Calcium 9.3 mg/dL (8.4-10.2); Carbon Dioxide 32 mmol/L (22-29); Chloride 104 mmol/L (96-108); Estimated Glomerular Filt Rate > 60; Glucose Random 145 mg/dL (60-115); Potassium 4.3 mmol/L (3.3-5.1); Sodium 141 mmol/L (135-145); Total Protein 6.8 g/dL (6.5-8.0)
[2022-10-02 11:25] LABS: Estimated Average Glucose 114 mg/dL; Hemoglobin A1C 130.7969 umol/L; Hemoglobin A1c % 5.6 %
== END 2022-10-02 09:00 | disposition home or self-care (01) ==
LOC: HO.10HDL 08:59
PROVIDERS: Visit Provider Internal Medicine
DX: Z13.89 Encounter for screening for other disorder (principal)
CPT/HCPCS: 36415; 80053; 83036; 85025

== ENCOUNTER 2022-10-07 10:34 | Outpatient (AMB) | payer MEDICARE, SELFPAY ==
[2022-10-07 10:54] VITALS: BP 134/72; PULSE 54; TEMP 36.5; O2SAT 98; BMI 41.1
--- NOTE | 2022-10-07 10:54 | A.OFFVIS_ITS ---
Intake Vital Signs 10/07/22 10:54 Height 5 ft 8 in Weight 270 lb 8.115 oz BMI 41.1 BP 134/72 Blood Pressure Location Rt brachial Position Sitting Pulse 54 Pulse Source Pulse Oximeter Temp 97.7 F Temp Source Skin Pulse Oximetry (%) 98 Intake Visit Reasons: Bl hand OA Intake Note: * New pt presents today for OA consult. * C/o pain bl hands * States he has been to OT, then saw neuro who gave him injection; still no relief. [employer] Required: No Accompanied by: Self / Same As Patient Allergies Penicillins [PENICILLINS] Allergy (Intermediate, Verified 10/07/22 11:01) rash- STATES BAD RXN CHILD HPI HPI Comments History of Present Illness Details The patient presents with complaints of numbness in his hands. He thinks this may have started 2 or 3 years ago. The use of the hands is limited because he can not feel things when they are in his hands. He sometimes drops things. He does not really call any injury to the hands in the past nor does he have any significant pain in the past. He notes some deformity. No redness or warmth. His feet have had profound numbness year. He did get some nerve conduction studies done showing axonal neuropathy in the upper extremities. He saw Hand Surgery but no surgery was recommended. He has type 2 diabetes. The patient relates history of bilateral knee, bilateral hip and left shoulder replacements in the past. Those seem to be functioning well. [facility] Medical History Anemia Atrial fibrillation BPH (benign prostatic hyperplasia) Chronic a-fib COPD (chronic obstructive pulmonary disease) Deafness in left ear Diabetes Essential hypertension GERD (gastroesophageal reflux disease) Hard of hearing History of amputation of toe Obesity JUDIE (obstructive sleep apnea) Osteoarthritis Osteoarthritis of left knee Peripheral edema Persistent atrial fibrillation Type 2 diabetes mellitus with unspecified complications Venous stasis Surgical History History of bilateral hip replacements Hx of colonoscopy Hx of total knee arthroplasty Hx of total shoulder replacement Uses cochlear implant Family History Father No problems noted. 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 Negative for appetite change, fever, chills, malaise and fatigue Eyes Details: Negative for vision change, dry eyes,headaches and dizziness ENT Details: Chronic loss of hearing. Some dryness in the mouth. Negative for tinnitus, oral ulcer, nose bleeds. Card Details: Has some exertional dyspnea. There is chronic leg swelling attributed to right- sided heart failure. History of atrial fibrillation. Recently no chest pain, palpitations, syncope Resp Details: Some exertional dyspnea. History of obstructive sleep apnea but not using a mask currently. Negative for cough and wheezing GI Details: Negative indigestion/heartburn, nausea, abdominal pain, bowel changes, diarrhea, constipation and bloody stool. Details: Negative for dysuria, hematuria, nocturia, decreased force/flow and genital discharge Skin/Breast Details: Negative for itching, rash, hives, Raynaud's symptoms, sun sensitivity, and skin cancer Neuro Details: Negative for epilepsy, palsy, stroke, changes in speech, tingling and weakness Psych Details: Negative for anxiety, depression and stress Endo Details: Negative for polyuria and polydypsia Obdulio/Lymph Details: Negative for excessive bruising or bleeding. Physical Exam Vital Signs: Last Vital Signs Temp 97.7 F 10/07/22 10:54 Pulse 54 10/07/22 10:54 BP 134/72 10/07/22 10:54 Pulse Ox 98 10/07/22 10:54 BMI result Body Mass Index 41.1 APPEARANCE: Patient in no acute distress EYES no redness, pupils equal and reactive to light, eyelids normal EARS: External ear normal, canal clear and tympanic membrane normal. NOSE/SINUS: Airflow through both nares, no nasal discharge, no bleeding THROAT: Oral mucosa moist, no ulcerations NECK: No thyromegaly or masses, no adenopathy, trachea midline. HEART: Regulrar rhythm, S1-S2 heard, no murmurs, rubs or gallops. LUNG: Clear to percussion and auscultation ABD: Normal bowel sounds, no organomegaly, masses or tenderness. EXTREMITIES: He has compression stockings and diabetic footwear and place so they were not removed. NEURO: Oriented and alert x3. No focal weakness. Reflexes symmetric. He walks slowly. There is decreased sensation in the hands below the wrists. SKIN: No inflammatory or neoplastic lesions. Normal color and turgor JOINT EXAM:.?? Cervical Spine:.? Some decrease in range of motion but without pain; no tenderness. Thoracic Spine:.? No scoliosis.? No tenderness on palpation. Lumbar Spine:.? Alignment normal.? Mild pain with flexion at 75 degrees. No tenderness. Chest Wall:.? No tenderness, swelling, increased warmth or erythema. Hands: Right: There is some flexion deformity at the MCPs with some intrinsic muscle atrophy. There may be some thickening in the MCP joints but this could be bony. There is no tenderness in any of the MCP joints. There is no flexor tendon triggering or tenderness. There is bony enlargement at the thumb IP and all the other PIP joints. This is a bit more prominent at the 2nd PIP. Additionally there is prominent bony enlargement at all of the D IP joints. None of these are tender and as noted above there is sensory loss in all the fingers. There is thenar and intrinsic muscle atrophy. Left: Some flexion deformity at all the MCPs with some intrinsic muscle atrophy. There is no tenderness or soft tissue swelling in the MCP joints. The thumb IP and the 2nd and 3rd PIP have some nontender bony swelling. There is nontender bony enlargement at the 2nd, 3rd and 5th D IP joints. There is thenar and intrinsic muscle atrophy and decreased sensation over all the fingertips in the palm of the hand. has a good community aide strength. Wrists:.? There is pain-free flexion and extension to 75 degrees but no tenderness or soft tissue swelling. No masses are redness or warmth. Elbows:. Right: The elbow lacks about 30 degrees of full extension. There is no tenderness or swelling over the joint space. Left: Normal pain-free range of motion without tenderness, swelling, increased warmth or erythema. Shoulders:.??Right: Full range of motion without pain. No tenderness, weakness, swelling, increased warmth or erythema. Left: Mild discomfort with abduction 150 degrees or with extremes of rotation. No tenderness or swelling. Hips:.? Slight decrease in the extremes of internal or external rotation but without pain. Hip bursa:.? No tenderness. Knees:. There are well-healed anterior scars from his knee replacements. There is full extension and flexion to 95 degrees without pain. There is no tenderness, swelling, redness or warmth. No instability notable. Ankles and feet are not examined today. Compression stockings and diabetic footwear in place.:.? Normal pain-free range of motion without tenderness, swelling, increased warmth or erythema. ? Results Reviewed Results Reviewed: [address] [address] XRay Report Signed Patient: Leonardo Pang Jr MR#: [id number] : 1950 Acct:[id number] Age/Sex: 70 / M ADM Date: 02/02/21 Loc: [facility] Attending Dr: Darien Thomas MD Ordering Physician: VANESSA THOMAS MD Date of Service: 02/02/21 Procedure(s): XR foot LT min 3V Accession Number(s): [id number] cc: VANESSA THOMAS MD~ EXAMINATION: XR FOOT, BILATERAL CLINICAL INFORMATION: Bilateral foot pain.? COMPARISON: Left foot 07/27/2018.? TECHNIQUE: 3 views of each foot.? FINDINGS: LEFT FOOT: Interval resection of the 3rd toe with sparing of the base of the proximal phalanx. 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 Dorsiflexion of the 4th and 5th MTP joints. Severe arthritic changes of the Lisfranc joints, particularly the 4th and 5th TMT joints. No acute osseous abnormality is evident. Heel spur. RIGHT FOOT: Advanced arthritic changes throughout the midfoot with dorsal osteophytes, and diffuse sclerosis. There may be chronic fragmentation of the navicular raising the possibility of a neuropathic foot. Dorsiflexion at the 2nd through 5th MTP joints. Possible remote, healed fracture of the 5th proximal phalanx. Heel spur.? 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 ? Marked hallux valgus of the left foot and dorsiflexion at the 2nd through 5th MTP joints bilaterally. Dictated By: ONIEL BEAL MD [address] [address] EMG / Nerve Conduction Report Signed Patient: Leonardo Pang Jr MR#: [id number] : 1950 Acct:[id number] Age/Sex: 72 / M ADM Date: 05/30/[address]: Maribeth Begum MD Ordering Physician: Maribeth Begum MD Date of Service: 05/30/22 Procedure(s): NE electromyogram (EMG); NE nerve conduction velocity Accession Number(s): [id number]; [id number] cc: Maribeth Begum MD~ ? Bilateral median and ulnar motor and sensory studies were performed.? Bilateral radial sensory studies were performed and paraspinal muscles were tested with a needle. ? IMPRESSION:? 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 ?? M Dede Gayle MD ? MZK/MODL DD:? 05/30/2022 09:47:39 DT:? 05/30/2022 09:55:27 Job #:? [id number] / [id number] Dictated By: Nava Gayle MD Signed By: <Electronically signed by Nava Gayle MD Assessment & Plan Assessment & Plan (1) Osteoarthritis of hands, bilateral: Code(s): M19.041 - Primary osteoarthritis, right hand; M19.042 - Primary osteoarthritis, left hand (2) Neuropathy: Code(s): G62.9 - Polyneuropathy, unspecified Plan The patient has some bony changes in the hands consistent with some osteoarthritis. His primary complaint, that of dropping things and numbness is secondary to his severe peripheral neuropathy. He has already had similar problems in the feet for years. The x-rays reveals some changes suggesting a Charcot type picture in the feet. So far the feet have not been painful however. He questions whether he could have rheumatoid arthritis. He does have some flexion deformity at the MCPs with some intrinsic atrophy which gives a picture of some MCP prominence but I do not think that there is actually synovitis but just the deformity related to the intrinsic muscle atrophy and OA. Treatment options are limited. He does not really have any pain to try to suppress with analgesics either orally or topically. I tried to reassure him that it was unlikely his disability could progress very quickly here. He has already seen occupational therapy and acquired various tools to help him be more functional. We will check some x-rays of the hands to see if possibly that could be some alternative pathology present. Orders: Orders XR hand LT min 3V Today M19.041 - Primary osteoarthritis, right hand, M19.042 - Primary osteoarthritis, left hand XR hand RT min 3V Today M19.041 - Primary osteoarthritis, right hand, M19.042 - Primary osteoarthritis, left hand Coding Level of Care Code New Pt Level 4 (97519) Diagnoses Osteoarthritis of hands, bilateral M19.041; M19.042 Neuropathy G62.9
== END 2022-10-07 12:16 | disposition home or self-care (01) ==
PROVIDERS: PCP Internal Medicine; Visit Provider Internal Medicine Rheumatology
DX: M19.041 Primary osteoarthritis, right hand (principal); M19.042 Primary osteoarthritis, left hand; G62.9 Polyneuropathy, unspecified
CPT/HCPCS: 99204

== ENCOUNTER → 2022-10-07 10:34 | Outpatient (BNVA) | payer MEDICARE, SELFPAY | PROVIDERS: PCP Internal Medicine; Visit Provider Internal Medicine Rheumatology ==

== ENCOUNTER 2022-10-07 12:09 | Outpatient (REF) | payer MEDICARE, SELFPAY ==
[2022-10-07 14:31] LABS: Anion Gap 18 (12-20); Blood Urea Nitrogen 17 mg/dL (9-16); Calcium 10.2 mg/dL (8.4-10.2); Carbon Dioxide 29 mmol/L (22-29); Chloride 99 mmol/L (96-108); Estimated Glomerular Filt Rate > 60; Glucose Random 121 mg/dL (60-115); Potassium 3.9 mmol/L (3.3-5.1); Sodium 142 mmol/L (135-145)
[2022-10-07 14:35] LABS: Estimated Average Glucose 117 mg/dL; Hemoglobin A1c % 5.7 %
== END 2022-10-07 12:10 | disposition home or self-care (01) ==
LOC: HO.10HDL 12:09
PROVIDERS: Visit Provider Internal Medicine
DX: M19.041 Primary osteoarthritis, right hand (principal); M19.042 Primary osteoarthritis, left hand; E11.9 Type 2 diabetes mellitus without complications; G62.9 Polyneuropathy, unspecified
CPT/HCPCS: 36415; 80048; 83036; 99202

== ENCOUNTER 2022-10-11 07:39 | Outpatient (REF) | payer MEDICARE, SELFPAY ==
--- NOTE | ~2022-10-11 | XR_ITS ---
EXAMINATION: XR HAND, LEFT CLINICAL INFORMATION: Primary osteoarthritis left hand. COMPARISON: Right hand, same day. TECHNIQUE: PA, lateral, and oblique views of the left hand. FINDINGS: Severe degenerative changes are seen with joint space narrowing osteophyte formation and subchondral cyst formation at the DIP joints of the 1st through 3rd digits, the PIP joints of the 1st and 2nd digits and the metacarpophalangeal joints of the 3rd and 4th digits. At the 3rd and 4th MCP joints, there is associated ventral subluxations. Mild degenerative changes are also seen at the 1st CMC joint and at the radial ulnar joint. No fractures are seen. No soft tissue calcifications. Similar findings are present in the right hand. XR/XR hand LT min 3V IMPRESSION: Severe degenerative changes as described above. No fractures are seen. At the 3rd and 4th MCP joints there is associated ventral subluxations. Differential diagnosis discussed on the right hand radiographs.
--- NOTE | ~2022-10-11 | XR_ITS ---
EXAMINATION: XR HAND, RIGHT CLINICAL INFORMATION: Primary osteoarthritis COMPARISON: None available. TECHNIQUE: PA, lateral, and oblique views of the right hand. FINDINGS: Bone mineralization within normal limits. There is severe degeneration of the metatarsophalangeal joints with partial subluxation. Smoking of metatarsal heads radial aspect with subchondral cyst formation. Minimal degeneration of distal interphalangeal joints and the carpal articulations. No soft tissue calcifications. XR/XR hand RT min 3V IMPRESSION: Severe degeneration of the metatarsophalangeal joints as above. Atypical pattern suggests entities such as CPPD arthropathy versus arthropathy related to entities such as Patrick's disease or even hemachromatosis.
== END 2022-10-11 07:40 | disposition home or self-care (01) ==
LOC: HO.XRAY 07:39
PROVIDERS: PCP Internal Medicine; Visit Provider Internal Medicine Rheumatology
DX: M19.041 Primary osteoarthritis, right hand (principal); M19.042 Primary osteoarthritis, left hand
CPT/HCPCS: 73130

== ENCOUNTER 2022-10-25 08:01 | Outpatient (AMB) | payer MEDICARE, SELFPAY ==
[2022-10-25 08:18] LABS: Prothrombin Time Whole Bld POC 46.1 sec (11.1-13.5); ~PT, ~INR - Anti Coag Clinic 3.8 (0.9-1.1)
--- NOTE | 2022-10-25 08:22 | MHC.OFFVISCO ---
Intake Intake Visit Reasons: Anticoagulation Allergies Penicillins [PENICILLINS] Allergy (Intermediate, Verified 10/25/22 08:12) rash- STATES BAD RXN CHILD Medication List - Last Reconciled 10/25/22 by Edith Crowder RN blood sugar diagnostic As directed carvedilol 12.5 mg PO DAILY cholecalciferol (vitamin D3) 25 mcg PO DAILY diltiazem HCl ER 240 mg PO DAILY furosemide 40 mg PO 2 tablets //, 1 tablet all other days; glipizide ER 5 mg PO 2 in the morning, 1 at night; insulin glargine (Lantus Solostar U-100 Insulin) 30 units subcut BEDTIME metformin ER 1,500 mg PO DAILY metolazone 2.5 mg orally twice/week; fvusakmsnfiq-lksbvgdo-tkyxvj 1 tab PO DAILY oxycodone-acetaminophen 5-325 mg 1 tab PO PRN pen needle, diabetic As directed pravastatin 80 mg PO DAILY tamsulosin 0.4 mg PO DAILY@1700 warfarin 4 mg See Protocol PO DAILY warfarin 2 mg See Protocol PO DAILY Nursing Note Amb to [facility] feeling well, sts he is having a colonoscopy on 11/01, took my last warfarin last night has paperwork from Dr Donahue office for 7 day hold (initial call to Dr Donahue to check length of hold office not open yet) Medications and supplements reviewed, pt sts he has stopped taking his insuin since 09/29 I didn't eat one day and took my Insulin and was rushed to the hospital, so I am not taking it anymore sts he is taking pills, glipizide and metformin. Pt sts when questioned he thinks Dr Bruner knows and his BS have been 120-180 No other changes in health, diet, medications, or supplements Denies any unusual signs and symptoms of bruising, bleeding Denies any new Chest pain, SOB, or clotting INR: 3.8 above therapeutic range Nutritional guidance given: greens today then balance greens and reds in diet Dose: start hold of warfarin as per Dr Donahue 7 day hold (LD 10/24) and warfarin would of been held tonight due to elevated INR. Instructed when able to resume warfarin after procedure to take 8mg x 3 doses,then usual dosing no greens after procedure, reds after to help raise; F/U INR: 8/31 Patient verbalizes understanding of instructions given with accurate read back/ teach back of dosing 1046 message left as an FYI to Dr Donahue office pts INR today and will hold x 7 days for colonoscopy and that pt has stopped INsulin as of 09/[address] Bruner office, not open today will call Friday Anti-Coag Initial Assessment Social Hx Patient Tobacco Use Status: Former Tobacco user Quit Date: 25 yrs ago alcohol intake: never Alcohol intake frequency: does not drink Coding Level of Care Code Est Patient Level 2 Diagnoses Current use of anticoagulant therapy Z79.01 Time Spent (min) 30 Assessment & Plan Assessment & Plan (1) Current use of anticoagulant therapy: Code(s): 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
== END 2022-10-25 09:12 | disposition home or self-care (01) ==
LOC: HO.ACS 08:01
PROVIDERS: PCP Internal Medicine; Visit Provider Internal Medicine
DX: Z79.01 Long term (current) use of anticoagulants (principal)

== ENCOUNTER → 2022-10-25 08:01 | Outpatient (BNVA) | payer MEDICARE, SELFPAY | PROVIDERS: PCP Internal Medicine; Visit Provider Internal Medicine | DX: I48.20 Chronic atrial fibrillation, unspecified (principal); Z79.01 Long term (current) use of anticoagulants; Z51.81 Encounter for therapeutic drug level monitoring | CPT/HCPCS: 85610; 99212 ==

== ENCOUNTER 2022-10-31 08:17 | Outpatient (REF) | payer MEDICARE, SELFPAY ==
[2022-10-31 11:00] LABS: Estimated Average Glucose 146 mg/dL; Hemoglobin A1c % 6.7 % (<6.0)
[2022-10-31 11:04] LABS: Anion Gap 13 (12-20); Blood Urea Nitrogen 25 mg/dL (9-16); Calcium 9.7 mg/dL (8.4-10.2); Carbon Dioxide 35 mmol/L (22-29); Chloride 94 mmol/L (96-108); Estimated Glomerular Filt Rate 52; Glucose Random 225 mg/dL (60-115); Potassium 3.3 mmol/L (3.3-5.1); Sodium 139 mmol/L (135-145)
== END 2022-10-31 08:18 | disposition home or self-care (01) ==
LOC: HO.10HDL 08:17
PROVIDERS: Visit Provider Internal Medicine
DX: E11.9 Type 2 diabetes mellitus without complications (principal); I48.91 Unspecified atrial fibrillation
CPT/HCPCS: 36415; 80048; 83036

== ENCOUNTER 2022-11-01 06:14 | Day surgery (SDC) | payer MEDICARE, SELFPAY ==
--- NOTE | 2022-10-31 12:05 | HO.ANESPROP2 ---
Documented by User: Starr Veloz NP 10/31/22 12:09 HPI - Anesthesia Eval Consult details Narrative: 72yo M for Colonoscopy Coumadin for afib [place]s [facility] [place] for afib, r side HF. Last seen 09/2022, stable except some leg swelling. Meds adjusted with 6 month f/u. [facility] Active Problems Active Problems: All Active Problems (Updated 06/25/22 @ 09:33 by Patrice Yeboah) Osteoarthritis of hands, bilateral (Acute) Neuropathy (Acute) Bilateral hand numbness (Acute) PVC (premature ventricular contraction) (Acute) JUDIE (obstructive sleep apnea) (Acute) Chronic right heart failure (Acute) Radiculitis of left cervical region (Acute) Spondylosis of lumbar region without myelopathy or radiculopathy (Acute) Type 2 diabetes mellitus with unspecified complications (Acute) Essential hypertension (Acute) Acute on chronic right heart failure (Acute) Persistent atrial fibrillation (Acute) Status post total left knee replacement (Acute) Current use of anticoagulant therapy (Acute) Past Medical History Medical History Anemia Atrial fibrillation BPH (benign prostatic hyperplasia) Chronic a-fib COPD (chronic obstructive pulmonary disease) Deafness in left ear Diabetes Essential hypertension GERD (gastroesophageal reflux disease) Hard of hearing History of amputation of toe Obesity JUDIE (obstructive sleep apnea) Osteoarthritis Osteoarthritis of left knee Peripheral edema Persistent atrial fibrillation Type 2 diabetes mellitus with unspecified complications Venous stasis Family History Family History Father No problems noted. Mother Stroke Surgical History Surgical History History of bilateral hip replacements Hx of colonoscopy Hx of total knee arthroplasty Hx of total shoulder replacement Uses cochlear implant Social History Social History Household Members: Spouse Housing: House Do you presently have visiting nurse or other home services: No (for discharge) Alcohol intake: never Patient Tobacco Use Status: Former Tobacco user Quit Date: 25 years ago Second Hand Smoke Exposure: No Use of substances other than those prescribed or required for medical reasons: No Are you DNR?: No Advance Directives: No Advance Directives Information Provided: Yes Advance Directives Date on File: 10/23/20 service: No 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al status: retired 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 Meds Allergies Allergy/AdvReac Type Severity Reaction Status Date / Time Penicillins [PENICILLINS] Allergy Intermediate rash- Verified 10/25/22 08:12 STATES BAD RXN CHILD Home Medications Medication Instructions Recorded Confirmed Last Taken Type insulin glargine 100 unit/mL (3 30 unit subcut BEDTIME 12/31/19 11/01/22 Unknown History mL) subcutaneous pen (Lantus Solostar U-100 Insulin) metformin 500 mg tablet,extended 1,500 mg PO DAILY 12/31/19 11/01/22 Unknown History release 24 hr pravastatin 80 mg tablet 80 mg PO DAILY 12/31/19 10/25/22 Unknown History tamsulosin 0.4 mg capsule 0.4 mg PO DAILY@1700 12/31/19 10/25/22 Unknown History cholecalciferol (vitamin D3) 25 25 mcg PO DAILY 05/08/20 11/01/22 Unknown History mcg (1,000 unit) capsule glipizide 5 mg tablet, extended 5 mg PO .COMPLEX 05/08/20 11/01/22 Unknown History release 24 hr vybswqkmgauj-nltejlsl-cbkzvi tablet 1 tab PO DAILY 05/08/20 10/25/22 Unknown History oxycodone-acetaminophen 5 mg-325 1 tab PO PRN 05/08/20 10/25/22 Unknown History mg tablet blood sugar diagnostic #10 ea 06/12/20 10/25/22 Unknown History pen needle, diabetic 31 gauge x #50 ea 06/12/20 10/25/22 Unknown History 3/16 furosemide 40 mg tablet 40 mg PO .COMPLEX 01/02/21 11/01/22 Unknown History diltiazem HCl 240 mg capsule,24 240 mg PO DAILY 06/26/21 11/01/22 11/01/22 History hr,extended release carvedilol 12.5 mg tablet 12.5 mg PO DAILY 10/07/22 11/01/22 11/01/22 History Exam Exam Date and Time: October 31, 2022 1205 Pertinent Lab Results Pertinent Lab Results: Laboratory Tests 10/02/22 10/31/22 09:10 08:25 WBC 9.8 Hgb 13.1 L Hct 41.0 L Plt Count 182 Sodium 139 Potassium 3.3 Chloride 94 L Carbon Dioxide 35 H BUN 25 H Creatinine 1.35 Narrative Narrative: ECHO 04/2022 Conclusions: - Limited study. ? - Low normal LVEF. ? - Significantly elevated right atrial pressure.? Mild pulmonary? hypertension is present. ? - There is mild dilatation of the sinuses of Valsalva measuring? 3.70 cm.? EKG 03/2022 atrial fibrillation at 55/min.? PVC versus aberrant conduction Assessment and Plan Assessment Anesthesia Assessment: Chart Reviewed Documented by User: Hanny Page MD 11/01/22 07:58 [facility] Past Medical History Medical History Anemia Atrial fibrillation BPH (benign prostatic hyperplasia) Chronic a-fib COPD (chronic obstructive pulmonary disease) Deafness in left ear Diabetes Essential hypertension GERD (gastroesophageal reflux disease) Hard of hearing History of amputation of toe Obesity JUDIE (obstructive sleep apnea) Osteoarthritis Osteoarthritis of left knee Peripheral edema Persistent atrial fibrillation Type 2 diabetes mellitus with unspecified complications Venous stasis Family History Family History Father No problems noted. Mother Stroke Surgical History Surgical History History of bilateral hip replacements Hx of colonoscopy Hx of total knee arthroplasty Hx of total shoulder replacement Uses cochlear implant History of Problems with Anesthesia: No Social History Social History Household Members: Spouse Housing: House Do you presently have visiting nurse or other home services: No (for discharge) Alcohol intake: never Patient Tobacco Use Status: Former Tobacco user Quit Date: 25 years ago Second Hand Smoke Exposure: No Use of substances other than those prescribed or required for medical reasons: No Are you DNR?: No Advance Directives: No Advance Directives Information Provided: Yes Advance Directives Date on File: 12/31/19 service: No 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al status: retired 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 Meds Allergies Allergy/AdvReac Type Severity Reaction Status Date / Time Penicillins [PENICILLINS] Allergy Intermediate rash- Verified 10/25/22 08:12 STATES BAD RXN CHILD Home Medications Medication Instructions Recorded Confirmed Last Taken Type insulin glargine 100 unit/mL (3 30 unit subcut BEDTIME 12/31/19 11/01/22 Unknown History mL) subcutaneous pen (Lantus Solostar U-100 Insulin) metformin 500 mg tablet,extended 1,500 mg PO DAILY 12/31/19 11/01/22 Unknown History release 24 hr pravastatin 80 mg tablet 80 mg PO DAILY 12/31/19 10/25/22 Unknown History tamsulosin 0.4 mg capsule 0.4 mg PO DAILY@1700 12/31/19 10/25/22 Unknown History cholecalciferol (vitamin D3) 25 25 mcg PO DAILY 05/08/20 11/01/22 Unknown History mcg (1,000 unit) capsule glipizide 5 mg tablet, extended 5 mg PO .COMPLEX 05/08/20 11/01/22 Unknown History release 24 hr awaytwgbarqz-ejsgytdv-dcejvu tablet 1 tab PO DAILY 05/08/20 10/25/22 Unknown History oxycodone-acetaminophen 5 mg-325 1 tab PO PRN 05/08/20 10/25/22 Unknown History mg tablet blood sugar diagnostic #10 ea 06/12/20 10/25/22 Unknown History pen needle, diabetic 31 gauge x #50 ea 06/12/20 10/25/22 Unknown History 3/16 furosemide 40 mg tablet 40 mg PO .COMPLEX 01/02/21 11/01/22 Unknown History diltiazem HCl 240 mg capsule,24 240 mg PO DAILY 06/26/21 11/01/22 11/01/22 History hr,extended release carvedilol 12.5 mg tablet 12.5 mg PO DAILY 10/07/22 11/01/22 11/01/22 History Exam Airway Mallampati Class: III TM Dist: >3cm Neck ROM: Limited Partial: Upper Loose/Missing/Broken Teeth: Yes, Upper and Lower Heart: irreg irregular rhythm Lungs: CTA Assessment and Plan Assessment Anesthesia Assessment: Anesthesia Plan Discussed Final Anesthetic Review History of Problems with Anesthesia: No NPO: Yes ASA Class: III Final Preanesthetic Review: Meds/Allgs Chart Reviewed, Consent Obtained/Reviewed and Anes Risks/Benef Reviewed Patient Risk: Intermediate Procedure Risk: Low Anesthetic Plan Anesthetic Plan: MAC: Disposition: Standard PACU
[2022-11-01 06:29] VITALS: BMI 37.2
[2022-11-01 06:37] VITALS: BP 90/58; PULSE 76; RESP 18; TEMP 36.5; O2SAT 98
[2022-11-01 06:45] LABS: Glucose, Whole Blood 203 mg/dL (60-115)
[2022-11-01 07:00] VITALS: BMI 37.2
[2022-11-01 07:04] LABS: Prothrombin Time 11.7 SEC (11.1-13.3)
[2022-11-01] MEDS: Sodium Phosphate,Mono-Dibasic 133 ML ENEMA PR ×2 (07:11)
[2022-11-01] MEDS: Lactated Ringers 1,000 ML 50 ML IVCONT (07:24)
--- NOTE | 2022-11-01 07:34 | P.HPSUR_ITS ---
Pre-Procedural Eval Section A Date of Service: 11/01/22 Section B Chief Complaint: Encounter for screening for malignant neoplasm Details of Present Illness: see H&P no changes Relevant Family History (Specify if Yes): No Relevant Social History: None Present Medications: see Short Stay Collaborative assessment Medical History: No relevant PMH History of Previous Operations: No relevant previous surgery Allergies: Allergies Allergy/AdvReac Type Severity Reaction Status Date / Time Penicillins [PENICILLINS] Allergy Intermediate rash- Verified 10/25/22 08:12 STATES BAD RXN CHILD Review of Systems Sugical H&P ROS: Negative: Constitution, Cardiovascular, Respiratory, Neurological, Psychiatric, Hem-Onc, Allergic/Immunologic, Gastrointestinal, Genitourinary, Musculoskeletal, Integumentary, Endocrine and Eyes/Ea rs/Nose/Throat Exam Surgical H&P Exam: Normal: HEENT, Normal: Heart, Normal: Lungs, Normal: Extremities, Normal: Abdomen, Normal: Skin and Normal: Neurological Plan Diagnosis/Plan: Unchanged I have reviewed the history and physical and performed a pertinent physical examination on my patient. No changes have occurred unless specified. Time Spent With Patient Time: Total time managing care of this patient today ____ minutes.
[2022-11-01 08:37] VITALS: BP 89/49; PULSE 68; RESP 18; TEMP 36.3; O2SAT 97
[2022-11-01 08:52] VITALS: BP 95/55; PULSE 57; RESP 18; TEMP 36.4; O2SAT 96
--- NOTE | 2022-11-01 09:41 | OP_ITS ---
DATE OF SERVICE: 11/01/2022 SURGEON: Griffin Donahue MD PREOPERATIVE DIAGNOSIS: POSTOPERATIVE DIAGNOSIS: PROCEDURE PERFORMED: ESTIMATED BLOOD LOSS: COMPLICATIONS: ANESTHESIA: Monitored anesthesia care. ASSISTANTS: SPECIMENS: PROCEDURE: Colonoscopy to the hepatic flexure. INDICATION: Colon cancer screening. DESCRIPTION OF PROCEDURE: A history and physical was performed. The risks and benefits of the procedure were explained to the patient. Informed consent was obtained. The patient was placed in left lateral decubitus position. Digital rectal exam was performed and was found to be normal. The Olympus pediatric video colonoscope was introduced into the rectum. The scope was advanced to the vicinity of the hepatic flexure. The scope began to malfunction and was withdrawn. Second scope was attached and reinserted to the vicinity of the hepatic flexure. Due to looping in the sigmoid, the scope could be advanced no further despite reduction of the loop and application of abdominal wall pressure. The prep was compromised as well limiting the examination. FINDINGS: The visualized colonic mucosa was normal. There was large amount of liquid and undigested food, which limited the sensitivity examination. This was washed and suctioned as best as possible and made the examination extremely tedious and difficult. No polyps were identified. There was mild sigmoid diverticulosis. Retroflexed examination showed small internal hemorrhoids. IMPRESSION: 1. Limited examination into the hepatic flexure as above. 2. Normal colonoscopy within the limitations as above. 3. Diverticulosis. RECOMMENDATIONS: Follow up barium enema should be considered as an outpatient with a different prep. MD PATSY Herrmann/THANIAL / [phone]
== END 2022-11-01 09:15 | disposition home or self-care (01) ==
PROVIDERS: Nurse Practitioner; PCP Internal Medicine; Visit Provider Internal Medicine Gastroenterology
PROC: 0DJD8ZZ Inspection of Lower Intestinal Tract, Via Natural or Artificial Opening Endoscopic (ICD-10-PCS; CPT 45378; principal; 2022-11-01 07:30)
DX: Z12.11 Encounter for screening for malignant neoplasm of colon (principal); I48.19 Other persistent atrial fibrillation; I11.0 Hypertensive heart disease with heart failure; I50.813 Acute on chronic right heart failure; D64.9 Anemia, unspecified; J44.9 Chronic obstructive pulmonary disease, unspecified; G47.33 Obstructive sleep apnea (adult) (pediatric); E11.9 Type 2 diabetes mellitus without complications; Z79.4 Long term (current) use of insulin; Z79.01 Long term (current) use of anticoagulants; Z79.899 Other long term (current) drug therapy; Z88.0 Allergy status to penicillin; Z87.891 Personal history of nicotine dependence; K57.30 Diverticulosis of large intestine without perforation or abscess without bleeding; K64.8 Other hemorrhoids
CPT/HCPCS: 45378; 36415; 82947; 85610; J2371

== ENCOUNTER 2022-11-08 08:10 | Outpatient (AMB) | payer MEDICARE, SELFPAY ==
[2022-11-08 08:26] LABS: Prothrombin Time Whole Bld POC 22.3 sec (11.1-13.5); ~PT, ~INR - Anti Coag Clinic 1.9 (0.9-1.1)
--- NOTE | 2022-11-08 08:28 | MHC.OFFVISCO ---
Intake Intake Visit Reasons: Anticoagulation Allergies Penicillins [PENICILLINS] Allergy (Intermediate, Verified 11/08/22 08:21) rash- STATES BAD RXN CHILD Medication List - Last Reconciled 11/08/22 by Hanny Paulino RN blood sugar diagnostic As directed carvedilol 12.5 mg PO DAILY cholecalciferol (vitamin D3) 25 mcg PO DAILY diltiazem HCl ER 240 mg PO DAILY furosemide 40 mg PO 2 tablets //, 1 tablet all other days; glipizide ER 5 mg PO 2 in the morning, 1 at night; insulin glargine (Lantus Solostar U-100 Insulin) 30 units subcut BEDTIME metformin ER 1,500 mg PO DAILY metolazone 2.5 mg orally twice/week; xgbqcusebmxl-bivssqib-lnutgl 1 tab PO DAILY oxycodone-acetaminophen 5-325 mg 1 tab PO PRN pen needle, diabetic As directed pravastatin 80 mg PO DAILY tamsulosin 0.4 mg PO DAILY@1700 warfarin 4 mg See Protocol PO DAILY warfarin 2 mg See Protocol PO DAILY Nursing Note PT.RESUMED WARFARIN AFTER COLONOSCOPY ON 11/02. NO CP,SOB,DIET/MED CHANGES,FALLS OR SX OF BLEEDING. CONTINUE PRESERNT DOSE AND FOLLOW-UPIN 4 WEEKS. \GOOD UNDERSTANDING OF DOSING INSTR. Anti-Coag Initial Assessment Social Hx Patient Tobacco Use Status: Former Tobacco user Quit Date: 25 years ago alcohol intake: never Alcohol intake frequency: former alcohol drinker Coding Level of Care Code Est Patient Level 1 Diagnoses Current use of anticoagulant therapy Z79.01 Assessment & Plan Assessment & Plan (1) Current use of anticoagulant therapy: Code(s): Z79.01 - half-way (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
== END 2022-11-08 08:32 | disposition home or self-care (01) ==
LOC: HO.ACS 08:10
PROVIDERS: PCP Internal Medicine; Visit Provider Internal Medicine
DX: Z79.01 Long term (current) use of anticoagulants (principal)

== ENCOUNTER → 2022-11-08 08:10 | Outpatient (BNVA) | payer MEDICARE, SELFPAY | PROVIDERS: PCP Internal Medicine; Visit Provider Internal Medicine | DX: I48.20 Chronic atrial fibrillation, unspecified (principal); Z79.01 Long term (current) use of anticoagulants; Z51.81 Encounter for therapeutic drug level monitoring | CPT/HCPCS: 85610; 99211 ==

== ENCOUNTER 2022-12-04 07:43 | Outpatient (REF) | payer MEDICARE, SELFPAY ==
[2022-12-04 08:57] LABS: MANUAL DIFF FLAG NO
[2022-12-04 09:50] LABS: Alanine Aminotransferase 10 U/L (0-40); Alkaline Phosphatase 73 U/L (39-117); Anion Gap 15 (12-20); Aspartate Amino Transferase 25 U/L (5-37); Bilirubin Total 0.8 mg/dL (0.0-1.0); Blood Urea Nitrogen 16 mg/dL (9-16); Calcium 9.5 mg/dL (8.4-10.2); Carbon Dioxide 31 mmol/L (22-29); Chloride 99 mmol/L (96-108); Estimated Glomerular Filt Rate > 60; Glucose Random 159 mg/dL (60-115); Potassium 3.7 mmol/L (3.3-5.1); Sodium 141 mmol/L (135-145)
[2022-12-04 10:08] LABS: Basophils Percent Auto 0.2 % (0-2); Eosinophils Absolute Auto 0.2 X10*3/uL (0.0-0.4); Hematocrit 39.3 % (42.0-52.0); Hemoglobin 13.5 g/dl (14.0-18.0); Imm Gran Abs Auto 0.04 X10*3/uL (0.00-0.03); Imm Gran Pct Auto 0.4 % (0.0-0.4); Lymphocytes Absolute Auto 1.1 X10*3/uL (1.2-4.9); Lymphocytes Percent Auto 11.2 % (20-40); Mean Corpuscular HGB Conc 34.4 g/dl (31.0-36.0); Mean Corpuscular Hemoglobin 32.1 pg (27.0-33.0); Mean Corpuscular Volume 93.3 fL (80.0-98.0); Mean Platelet Volume 11.8 fL (9.4-12.4); Monocytes Absolute Auto 1.2 X10*3/uL (0.1-1.2); Monocytes Percent Auto 12.1 % (2-11); Neutrophils Absolute Auto 7.3 x10*3/uL (2.0-8.3); Neutrophils Percent Auto 74.1 % (45-73); Platelet Count 185 X10*3/uL (160-400); Red Blood Count 4.21 X10*6/uL (4.60-5.80); Red Cell Distribution Width 13.6 % (11.0-16.0); White Blood Count 9.9 X10*3/uL (4.8-10.8)
[2022-12-04 10:35] LABS: B Type Natriuretic Peptide 104 pg/mL (<100)
[2022-12-04 11:57] LABS: Estimated Average Glucose 160 mg/dL; Hemoglobin A1c % 7.2 % (<6.0)
== END 2022-12-04 07:44 | disposition home or self-care (01) ==
LOC: HO.10HDL 07:43
PROVIDERS: Absent Provider Internal Medicine; Visit Provider Internal Medicine
DX: I11.0 Hypertensive heart disease with heart failure (principal); I50.812 Chronic right heart failure; I50.22 Chronic systolic (congestive) heart failure; E11.9 Type 2 diabetes mellitus without complications; I48.91 Unspecified atrial fibrillation; N40.0 Benign prostatic hyperplasia without lower urinary tract symptoms; M19.90 Unspecified osteoarthritis, unspecified site
CPT/HCPCS: 36415; 80053; 83036; 83880; 85025

== ENCOUNTER 2022-12-06 08:03 | Outpatient (AMB) | payer MEDICARE, SELFPAY ==
[2022-12-06 08:12] LABS: ~PT, ~INR - Anti Coag Clinic 3.8 (0.9-1.1)
--- NOTE | 2022-12-06 08:16 | MHC.OFFVISCO ---
Intake Intake Visit Reasons: Anticoagulation Allergies Penicillins [PENICILLINS] Allergy (Intermediate, Verified 12/06/22 08:07) rash- STATES BAD RXN CHILD Medication List - Last Reconciled 12/06/22 by Hanny Paulino RN blood sugar diagnostic As directed carvedilol 12.5 mg PO DAILY cholecalciferol (vitamin D3) 25 mcg PO DAILY diltiazem HCl ER 240 mg PO DAILY furosemide 40 mg PO 2 tablets //, 1 tablet all other days; glipizide ER 5 mg PO 2 in the morning, 1 at night; insulin glargine (Lantus Solostar U-100 Insulin) 30 units subcut BEDTIME metformin ER 1,500 mg PO DAILY metolazone 2.5 mg orally twice/week; tqtvvpwmpkwj-ddgkhkks-xkbbwy 1 tab PO DAILY oxycodone-acetaminophen 5-325 mg 1 tab PO PRN pen needle, diabetic As directed pravastatin 80 mg PO DAILY tamsulosin 0.4 mg PO DAILY@1700 warfarin 4 mg See Protocol PO DAILY warfarin 2 mg See Protocol PO DAILY Nursing Note PT STATES THAT HE HAS HAD 3 VACCINES IN THE PAST WEK. THIS IS THE LIKELY CAUSE OF ELEVATED INR TODAY. NO CP,SOB,DIET/MED CHANGES,FALLS OR SX OF BLEEDING. HOLD WARFARIN TODAY THEN RESUME USUAL DOSE AND FOLLOW-UP IN 2 WEEKS. GOOD UNDERSTANDING OF DOSING INSTR. 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
== END 2022-12-06 08:18 | disposition home or self-care (01) ==
LOC: HO.ACS 08:03
PROVIDERS: PCP Internal Medicine; Visit Provider Internal Medicine
DX: Z79.01 Long term (current) use of anticoagulants (principal)

== ENCOUNTER → 2022-12-06 08:03 | Outpatient (BNVA) | payer MEDICARE, SELFPAY | PROVIDERS: PCP Internal Medicine; Visit Provider Internal Medicine | DX: I48.20 Chronic atrial fibrillation, unspecified (principal); Z79.01 Long term (current) use of anticoagulants; Z51.81 Encounter for therapeutic drug level monitoring | CPT/HCPCS: 85610; 99211 ==

== ENCOUNTER 2022-12-19 08:07 | Outpatient (AMB) | payer MEDICARE, SELFPAY ==
--- NOTE | 2022-12-19 08:36 | MHC.OFFVISCO ---
Intake Intake Visit Reasons: Anticoagulation Allergies Penicillins [PENICILLINS] Allergy (Intermediate, Verified 12/19/22 08:26) rash- STATES BAD RXN CHILD Medication List - Last Reconciled 12/19/22 by Edith Crowder RN blood sugar diagnostic As directed carvedilol 12.5 mg PO DAILY cholecalciferol (vitamin D3) 25 mcg PO DAILY diltiazem HCl ER 240 mg PO DAILY furosemide 40 mg PO 2 tablets //, 1 tablet all other days; glipizide ER 5 mg PO 2 in the morning, 1 at night; metformin ER 1,500 mg PO DAILY metolazone 2.5 mg orally twice/week; xfgdefyokckz-dcebzzaz-fpelwj 1 tab PO DAILY oxycodone-acetaminophen 5-325 mg 1 tab PO PRN pen needle, diabetic As directed pravastatin 80 mg PO DAILY tamsulosin 0.4 mg PO DAILY@1700 warfarin 4 mg See Protocol PO DAILY warfarin 2 mg See Protocol PO DAILY Nursing Note Amb to [facility] using cane, feeling well Medications and supplements reviewed, has been off his lantus solstar since October, his PCP is aware, EMAR updated No other changes in health, diet, medications, or supplements Denies any unusual signs and symptoms of bruising, bleeding Denies any new Chest pain, SOB, or clotting INR: 3.9 above therapeutic range, denies increase in reds, not really a green eater per pt last visit 3.8 Nutritional guidance given: balance greens and reds in diet Dose: hold warfarin today then resume warfarin at 6mg daily (no 8mg on Friday); F/U INR:2 weeks Patient verbalizes understanding of instructions given with accurate read back/ teach back of dosing Anti-Coag Initial Assessment Social Hx Patient Tobacco Use Status: Former Tobacco user Quit Date: 25 years ago alcohol intake: never Alcohol intake frequency: former alcohol drinker Coding Level of Care Code Est Patient Level 1 Diagnoses Current use of anticoagulant therapy Z79.01 Time Spent (min) 15 Results AMB INR Fingerstick AMB INR Fingerstick 3.9 Last Edit by Edith Crowder RN on 12/19/22 08:34 Interface failure Assessment & Plan Assessment & Plan (1) Current use of anticoagulant therapy: 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
[2022-12-19 10:03] LABS: Prothrombin Time Whole Bld POC 46.9 sec (11.1-13.5); ~PT, ~INR - Anti Coag Clinic 3.9 (0.9-1.1)
== END 2022-12-19 09:00 | disposition home or self-care (01) ==
PROVIDERS: PCP Internal Medicine; Visit Provider Internal Medicine
DX: Z79.01 Long term (current) use of anticoagulants (principal)

== ENCOUNTER → 2022-12-19 08:07 | Outpatient (BNVA) | payer MEDICARE, SELFPAY | PROVIDERS: PCP Internal Medicine; Visit Provider Internal Medicine | DX: I48.20 Chronic atrial fibrillation, unspecified (principal); Z79.01 Long term (current) use of anticoagulants; Z51.81 Encounter for therapeutic drug level monitoring | CPT/HCPCS: 85610; 99211 ==

== ENCOUNTER 2023-01-03 08:01 | Outpatient (AMB) | payer MEDICARE, SELFPAY ==
[2023-01-03 08:06] LABS: Prothrombin Time Whole Bld POC 35.8 sec (11.1-13.5)
--- NOTE | 2023-01-03 08:07 | MHC.OFFVISCO ---
Intake Intake Visit Reasons: Anticoagulation Allergies Penicillins [PENICILLINS] Allergy (Intermediate, Verified 01/03/23 08:01) rash- STATES BAD RXN CHILD Medication List - Last Reconciled 01/03/23 by Hanny Paulino RN blood sugar diagnostic As directed carvedilol 12.5 mg PO DAILY cholecalciferol (vitamin D3) 25 mcg PO DAILY diltiazem HCl ER 240 mg PO DAILY furosemide 40 mg PO 2 tablets //, 1 tablet all other days; glipizide ER 5 mg PO 2 in the morning, 1 at night; metformin ER 1,500 mg PO DAILY metolazone 2.5 mg orally twice/week; zhtacfaptznx-opdkfwht-sgxphb 1 tab PO DAILY oxycodone-acetaminophen 5-325 mg 1 tab PO PRN pen needle, diabetic As directed pravastatin 80 mg PO DAILY tamsulosin 0.4 mg PO DAILY@1700 warfarin 4 mg See Protocol PO DAILY warfarin 2 mg See Protocol PO DAILY Nursing Note NO CO,SOB,DIET/MED CHANGES,FALLS OR SX OF BLEEDING. CONTINUE 6MGM DAILY AND FOLLOW-UP IN 3 WEEKS. GOOD UNDERSTANDING OF DOSING INSTR. 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
== END 2023-01-03 08:10 | disposition home or self-care (01) ==
LOC: HO.ACS 08:01
PROVIDERS: PCP Internal Medicine; Visit Provider Internal Medicine
DX: Z79.01 Long term (current) use of anticoagulants (principal)

== ENCOUNTER → 2023-01-03 08:01 | Outpatient (BNVA) | payer MEDICARE, SELFPAY | PROVIDERS: PCP Internal Medicine; Visit Provider Internal Medicine | DX: I48.20 Chronic atrial fibrillation, unspecified (principal); Z79.01 Long term (current) use of anticoagulants; Z51.81 Encounter for therapeutic drug level monitoring | CPT/HCPCS: 85610; 99211 ==

== ENCOUNTER 2023-01-24 08:01 | Outpatient (AMB) | payer MEDICARE, SELFPAY ==
[2023-01-24 08:28] LABS: Prothrombin Time Whole Bld POC 41.5 sec (11.1-13.5); ~PT, ~INR - Anti Coag Clinic 3.5 (0.9-1.1)
--- NOTE | 2023-01-24 08:31 | MHC.OFFVISCO ---
Intake Intake Visit Reasons: Anticoagulation Allergies Penicillins [PENICILLINS] Allergy (Intermediate, Verified 01/24/23 08:21) rash- STATES BAD RXN CHILD Medication List - Last Reconciled 01/24/23 by Sayra Adorno RN blood sugar diagnostic As directed carvedilol 12.5 mg PO DAILY cholecalciferol (vitamin D3) 25 mcg PO DAILY diltiazem HCl ER 240 mg PO DAILY furosemide 40 mg PO 2 tablets //, 1 tablet all other days; glipizide ER 5 mg PO 2 in the morning, 1 at night; metformin ER 1,500 mg PO DAILY metolazone 2.5 mg orally twice/week; xocengdxmqjk-xaobwtku-gdxxzf 1 tab PO DAILY oxycodone-acetaminophen 5-325 mg 1 tab PO PRN pen needle, diabetic As directed pravastatin 80 mg PO DAILY tamsulosin 0.4 mg PO DAILY@1700 warfarin 4 mg See Protocol PO DAILY warfarin 2 mg See Protocol PO DAILY Nursing Note INR: 3.5 JUST OUT OF therapeutic range INRS HAVE BEEN TRENDING HIGHER Medications and supplements reviewed No changes in health, diet, medications, or supplements, Denies any signs and symptoms of bleeding or bruising or clotting. Bleeding, bruising, clotting discussed Nutritional guidance given COOKED GREENS WEEKLY Dose: DECREASE WEEKLY DOSE 4MG X 1 DAY/ 6MG X 6 DAYS F/U INR: 3 WEEKS PER PT REQUEST Patient verbalizes understanding of instructions given Anti-Coag Initial Assessment Social Hx Patient Tobacco Use Status: Former Tobacco user Quit Date: 25 years ago alcohol intake: never Alcohol intake frequency: former alcohol drinker Coding Level of Care Code Est Patient Level 1 Diagnoses Current use of anticoagulant therapy Z79.01 Assessment & Plan Assessment & Plan (1) Current use of anticoagulant therapy: Code(s): Z79.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
== END 2023-01-24 08:36 | disposition home or self-care (01) ==
LOC: HO.ACS 08:01
PROVIDERS: PCP Internal Medicine; Visit Provider Internal Medicine
DX: Z79.01 Long term (current) use of anticoagulants (principal)

== ENCOUNTER → 2023-01-24 08:01 | Outpatient (BNVA) | payer MEDICARE, SELFPAY | PROVIDERS: PCP Internal Medicine; Visit Provider Internal Medicine | DX: I48.20 Chronic atrial fibrillation, unspecified (principal); Z79.01 Long term (current) use of anticoagulants; Z51.81 Encounter for therapeutic drug level monitoring | CPT/HCPCS: 85610; 99211 ==

== ENCOUNTER 2023-02-14 08:03 | Outpatient (AMB) | payer MEDICARE, SELFPAY ==
[2023-02-14 08:20] LABS: ~PT, ~INR - Anti Coag Clinic 2.2 (0.9-1.1)
--- NOTE | 2023-02-14 08:20 | MHC.OFFVISCO ---
Intake Intake Visit Reasons: Anticoagulation Allergies Penicillins [PENICILLINS] Allergy (Intermediate, Verified 02/14/23 08:16) rash- STATES BAD RXN CHILD Medication List - Last Reconciled 02/14/23 by Gunjan Valdivia RN blood sugar diagnostic As directed carvedilol 12.5 mg PO DAILY cholecalciferol (vitamin D3) 25 mcg PO DAILY diltiazem HCl ER 240 mg PO DAILY furosemide 40 mg PO 2 tablets //, 1 tablet all other days; glipizide ER 5 mg PO 2 in the morning, 1 at night; metformin ER 1,500 mg PO DAILY metolazone 2.5 mg orally twice/week; iddguhfvpmpf-apcvcohp-cezlih 1 tab PO DAILY oxycodone-acetaminophen 5-325 mg 1 tab PO PRN pen needle, diabetic As directed pravastatin 80 mg PO DAILY tamsulosin 0.4 mg PO DAILY@1700 warfarin 4 mg See Protocol PO DAILY warfarin 2 mg See Protocol PO DAILY Nursing Note INR: 2.2- in therapeutic range of 2-3 Medications and supplements reviewed- no changes pt cont to be off insulin, will f/u with pcp No changes in health, diet, medications, or supplements, Denies any signs and symptoms of bleeding or bruising or clotting. 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
== END 2023-02-14 08:26 | disposition home or self-care (01) ==
LOC: HO.ACS 08:03
PROVIDERS: PCP Internal Medicine; Visit Provider Internal Medicine
DX: Z79.01 Long term (current) use of anticoagulants (principal)

== ENCOUNTER → 2023-02-14 08:03 | Outpatient (BNVA) | payer MEDICARE, SELFPAY | PROVIDERS: PCP Internal Medicine; Visit Provider Internal Medicine | DX: I48.20 Chronic atrial fibrillation, unspecified (principal); Z79.01 Long term (current) use of anticoagulants; Z51.81 Encounter for therapeutic drug level monitoring | CPT/HCPCS: 85610; 99211 ==

== ENCOUNTER 2023-03-07 07:36 | Outpatient (REF) | payer MEDICARE, SELFPAY ==
[2023-03-07 10:21] LABS: MANUAL DIFF FLAG NO
[2023-03-07 10:28] LABS: Basophils Percent Auto 0.3 % (0-2); Eosinophils Absolute Auto 0.4 X10*3/uL (0.0-0.4); Eosinophils Percent Auto 3.6 % (0-4); Hematocrit 39.6 % (42.0-52.0); Hemoglobin 13.3 g/dl (14.0-18.0); Imm Gran Abs Auto 0.03 X10*3/uL (0.00-0.03); Imm Gran Pct Auto 0.3 % (0.0-0.4); Lymphocytes Absolute Auto 1.8 X10*3/uL (1.2-4.9); Lymphocytes Percent Auto 18.3 % (20-40); Mean Corpuscular HGB Conc 33.6 g/dl (31.0-36.0); Mean Corpuscular Hemoglobin 32.8 pg (27.0-33.0); Mean Corpuscular Volume 97.8 fL (80.0-98.0); Mean Platelet Volume 11.1 fL (9.4-12.4); Monocytes Percent Auto 10.3 % (2-11); Neutrophils Absolute Auto 6.6 x10*3/uL (2.0-8.3); Neutrophils Percent Auto 67.2 % (45-73); Platelet Count 183 X10*3/uL (160-400); Red Blood Count 4.05 X10*6/uL (4.60-5.80); Red Cell Distribution Width 13.4 % (11.0-16.0); White Blood Count 9.8 X10*3/uL (4.8-10.8)
[2023-03-07 10:35] LABS: Estimated Average Glucose 137 mg/dL; Hemoglobin A1c % 6.4 % (<6.0)
[2023-03-07 10:38] LABS: Alanine Aminotransferase 10 U/L (0-40); Albumin Level 4.1 g/dL (3.5-5.0); Alkaline Phosphatase 55 U/L (39-117); Anion Gap 14 (12-20); Aspartate Amino Transferase 22 U/L (5-37); Bilirubin Total 0.7 mg/dL (0.0-1.0); Blood Urea Nitrogen 19 mg/dL (9-16); Calcium 9.6 mg/dL (8.4-10.2); Carbon Dioxide 30 mmol/L (22-29); Chloride 102 mmol/L (96-108); Estimated Glomerular Filt Rate > 60; Glucose Random 106 mg/dL (60-115); Potassium 4.3 mmol/L (3.3-5.1); Sodium 142 mmol/L (135-145); Total Protein 6.9 g/dL (6.5-8.0)
== END 2023-03-07 07:37 | disposition home or self-care (01) ==
LOC: HO.10HDL 07:36
PROVIDERS: Visit Provider Internal Medicine
DX: E11.9 Type 2 diabetes mellitus without complications (principal); I10 Essential (primary) hypertension; I48.91 Unspecified atrial fibrillation
CPT/HCPCS: 36415; 80053; 83036; 85025; 85610; 99211

== ENCOUNTER 2023-03-07 07:56 | Outpatient (AMB) | payer MEDICARE, SELFPAY ==
[2023-03-07 08:11] LABS: Prothrombin Time Whole Bld POC 23.8 sec (11.1-13.5)
--- NOTE | 2023-03-07 08:15 | MHC.OFFVISCO ---
Intake Intake Visit Reasons: Anticoagulation Allergies Penicillins [PENICILLINS] Allergy (Intermediate, Verified 03/07/23 08:07) rash- STATES BAD RXN CHILD Medication List - Last Reconciled 03/07/23 by Hanny Paulino RN blood sugar diagnostic As directed carvedilol 12.5 mg PO DAILY cholecalciferol (vitamin D3) 25 mcg PO DAILY diltiazem HCl ER 240 mg PO DAILY furosemide 40 mg PO 2 tablets //, 1 tablet all other days; glipizide ER 5 mg PO 2 in the morning, 1 at night; metformin ER 1,500 mg PO DAILY metolazone 2.5 mg orally twice/week; qkdrmxbiixud-xtxdurpt-gzspjo 1 tab PO DAILY oxycodone-acetaminophen 5-325 mg 1 tab PO PRN pen needle, diabetic As directed pravastatin 80 mg PO DAILY tamsulosin 0.4 mg PO DAILY@1700 warfarin 4 mg See Protocol PO DAILY warfarin 2 mg See Protocol PO DAILY Nursing Note NO CP,SOB,DIET/MED CHANGESFALLS OR SX OF BLEEDING. CONTINUE PRESENT DOSE ND FOLLOW-UP IN 4 WEEKS. GOOD UNDERSTANDING OF DOSING INSTR. 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
== END 2023-03-07 08:16 | disposition home or self-care (01) ==
LOC: HO.ACS 07:56
PROVIDERS: PCP Internal Medicine; Visit Provider Internal Medicine
DX: Z79.01 Long term (current) use of anticoagulants (principal)

== ENCOUNTER 2023-04-04 08:05 | Outpatient (AMB) | payer MEDICARE, SELFPAY ==
--- NOTE | 2023-04-04 08:29 | MHC.OFFVISCO ---
Intake Intake Visit Reasons: Anticoagulation Allergies Penicillins [PENICILLINS] Allergy (Intermediate, Verified 04/04/23 08:21) rash- STATES BAD RXN CHILD Medication List - Last Reconciled 04/04/23 by Sayra Adorno RN blood sugar diagnostic As directed carvedilol 12.5 mg PO DAILY cholecalciferol (vitamin D3) 25 mcg PO DAILY diltiazem HCl ER 240 mg PO DAILY furosemide 40 mg PO 2 tablets //, 1 tablet all other days; glipizide ER 5 mg PO 2 in the morning, 1 at night; metformin ER 1,500 mg PO DAILY metolazone 2.5 mg orally twice/week; gjgujnotpehb-jmlamvvp-scscpw 1 tab PO DAILY oxycodone-acetaminophen 5-325 mg 1 tab PO PRN pen needle, diabetic As directed pravastatin 80 mg PO DAILY tamsulosin 0.4 mg PO DAILY@1700 warfarin 4 mg See Protocol PO DAILY warfarin 2 mg See Protocol PO DAILY Nursing Note INR: 1.9 almost in therapeutic range Medications and supplements reviewed No changes in health, diet, medications, or supplements, Denies any signs and symptoms of bleeding or bruising or clotting. Bleeding, bruising, clotting discussed Nutritional guidance given Dose: 8mg today then 4mg x 1 ay/ 6mg x 6 days if still low increase weekly dose back to 6mg daily F/U INR: 4 weeks per pt reques, Patient verbalizes understanding of instructions given Anti-Coag Initial Assessment Social Hx Patient Tobacco Use Status: Former Tobacco user Quit Date: 25 years ago alcohol intake: never Alcohol intake frequency: former alcohol drinker Coding Level of Care Code Est Patient Level 1 Diagnoses Current use of anticoagulant therapy Z79.01 Results AMB INR Fingerstick AMB INR Fingerstick 1.9 Last Edit by Sayra Adorno RN on 04/04/23 08:27 manual Assessment & Plan Assessment & Plan (1) Current use of anticoagulant therapy: Code(s): Z79.01 - 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
[2023-04-07 17:35] LABS: Prothrombin Time Whole Bld POC 22.2 sec (11.1-13.5); ~PT, ~INR - Anti Coag Clinic 1.9 (0.9-1.1)
== END 2023-04-04 08:34 | disposition home or self-care (01) ==
LOC: HO.ACS 08:05
PROVIDERS: PCP Internal Medicine; Visit Provider Internal Medicine
DX: Z79.01 Long term (current) use of anticoagulants (principal)

== ENCOUNTER → 2023-04-04 08:05 | Outpatient (BNVA) | payer MEDICARE, SELFPAY | PROVIDERS: PCP Internal Medicine; Visit Provider Internal Medicine | DX: I48.20 Chronic atrial fibrillation, unspecified (principal); Z79.01 Long term (current) use of anticoagulants; Z51.81 Encounter for therapeutic drug level monitoring | CPT/HCPCS: 85610; 99211 ==

== ENCOUNTER 2023-04-07 08:54 | Outpatient (AMB) | payer MEDICARE, SELFPAY ==
--- NOTE | 2023-04-07 08:58 | MHC.OFFVIS ---
Intake Vital Signs 04/07/23 09:01 Height 5 ft 8 in Weight 255 lb 11.779 oz BMI 38.9 BP 118/62 Blood Pressure Location Lt brachial Position Sitting Pulse 67 Intake Visit Reasons: 6 mth f/up Intake Note: 6 month follow up w/ EKG Post Manager Required: No Accompanied by: Self / Same As Patient Allergies Penicillins [PENICILLINS] Allergy (Intermediate, Verified 04/07/23 09:02) rash- STATES BAD RXN CHILD Medication List - Last Reconciled 04/07/23 by Camacho Kirkland MD blood sugar diagnostic As directed carvedilol 12.5 mg PO DAILY cholecalciferol (vitamin D3) 25 mcg PO DAILY diltiazem HCl ER 240 mg PO DAILY furosemide 40 mg PO 2 tablets //, 1 tablet all other days; glipizide ER 5 mg PO 2 in the morning, 1 at night; metformin ER 1,500 mg PO DAILY metolazone 2.5 mg orally once/week tyjqnfubfdsw-kjhgjlhq-bnndky 1 tab PO DAILY oxycodone-acetaminophen 5-325 mg 1 tab PO PRN pen needle, diabetic As directed pravastatin 80 mg PO DAILY tamsulosin 0.4 mg PO DAILY@1700 warfarin 4 mg See Protocol PO DAILY warfarin 2 mg See Protocol PO DAILY HPI HPI Comments History of Present Illness Details Leonardo returns for follow-up regarding various cardiac issues. He has a history of chronic atrial fibrillation treated by rate control. He also has chronic right-sided heart failure. Per patient, he has sleep apnea and had CPAP mask more than a decade ago but has not used a long time as it is very inconvenient. Overall, he states he is actually feeling fine. No new concerns. Shortness of breath is at baseline. Leg swelling is also controlled. [facility] Medical History Anemia Atrial fibrillation BPH (benign prostatic hyperplasia) Chronic a-fib COPD (chronic obstructive pulmonary disease) Deafness in left ear Diabetes Essential hypertension GERD (gastroesophageal reflux disease) Hard of hearing History of amputation of toe Obesity JUDIE (obstructive sleep apnea) Osteoarthritis Osteoarthritis of left knee Peripheral edema Persistent atrial fibrillation Type 2 diabetes mellitus with unspecified complications Venous stasis Surgical History History of bilateral hip replacements Hx of colonoscopy Hx of total knee arthroplasty Hx of total shoulder replacement Uses cochlear implant Family History Father No problems noted. 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 Review of Systems Const Denies weakness ENT Denies dizziness Card Denies chest pain, Denies chest pain with activity, Denies syncope, Denies rapid heart rate, Denies pedal edema, Denies edema, Denies leg edema, Denies lightheadedness, Denies palpitations and Denies orthopnea Resp Denies cough GI Denies hematochezia and Denies change in stool character Musc Denies abnormal gait, Denies muscle cramps, Denies muscle weakness, Denies numbness, Denies radiating pain into limb and Denies tingling Neuro Denies abnormal gait, Denies dizziness, Denies syncope, Denies numbness, Denies tingling and Denies weakness Endo Denies palpitations Physical Exam Vital Signs: Last Vital Signs Pulse 67 04/07/23 09:01 BP 118/62 04/07/23 09:01 BMI result Body Mass Index 38.9 Const General: comfortable and no acute distress Orientation/consciousness: patient oriented x3 HEENT Other: Unremarkable Head: Yes normal to inspection Neck Neck: Yes normal visual inspection Chest Chest palpation & inspection: normal inspection of the chest Resp Auscultation: clear to auscultation bilaterally Cardio Palpation: normal PMI Heart sounds: S1 normal heart sound present, S2 normal heart sound present, no gallops, no murmurs and no rubs GI Palpation (GI): Soft to palpation Back/Spine/Pelvis Other: unremarkable Skin General skin exam: no rashes or lesions noted Neuro General: patient oriented x3 Extrem Other: No significant edema. General: Yes normal to inspection Psych Mental Status: mental status grossly normal Office Procedures EKG Details: EKG with atrial fibrillation at a rate of 67/Min. [id number], Complete Assessment & Plan Assessment & Plan (1) Chronic right heart failure: Code(s): I50.812 - Chronic right heart failure Plan: He seems to be stable on the current regimen of Lasix/metolazone. He takes metolazone once a week or so. No specific changes. Renal function seems stable. (2) Persistent atrial fibrillation: Code(s): I48.19 - Other persistent atrial fibrillation Plan: Remains on diltiazem and carvedilol. Off digoxin due to tiredness. Continue anticoagulation. (3) PVC (premature ventricular contraction): Code(s): I49.3 - Ventricular premature depolarization Plan: In the last Holter, he had frequent PVCs with a burden of about 5.6%. Longest run was about 3 beats. Some of them could also be aberrantly conducted atrial fibrillation. Continue diltiazem/Coreg as above. (4) Essential hypertension: Code(s): I10 - Essential (primary) hypertension Plan: Stable on current regimen. (5) Type 2 diabetes mellitus with unspecified complications: Code(s): E11.8 - Type 2 diabetes mellitus with unspecified complications Plan: On Insulin, metformin, glipizide. Hemoglobin A1c is 6.4%. (6) JUDIE (obstructive sleep apnea): Code(s): G47.33 - Obstructive sleep apnea (adult) (pediatric) Plan: Prior sleep study had shown moderately severe obstructive sleep apnea-2016. Does not use CPAP and this has been discussed numerous times including today. Coding Level of Care Code Est Pt Level 4 (72413) Diagnoses Chronic right heart failure I50.812 Persistent atrial fibrillation I48.19 PVC (premature ventricular contraction) I49.3 Essential hypertension I10 Type 2 diabetes mellitus with unspecified complications E11.8 JUDIE (obstructive sleep apnea) G47.33 CPT Codes EKG - CPT: [id number], Complete ([id number])
[2023-04-07 09:01] VITALS: BP 118/62; PULSE 67; BMI 38.9
== END 2023-04-07 09:25 | disposition home or self-care (01) ==
PROVIDERS: PCP Internal Medicine; Visit Provider Internal Medicine
DX: I50.812 Chronic right heart failure (principal); I48.19 Other persistent atrial fibrillation; I49.3 Ventricular premature depolarization; I10 Essential (primary) hypertension; E11.8 Type 2 diabetes mellitus with unspecified complications; G47.33 Obstructive sleep apnea (adult) (pediatric)
CPT/HCPCS: 93010; 99214

== ENCOUNTER → 2023-04-07 08:54 | Outpatient (BNVA) | payer MEDICARE, SELFPAY | PROVIDERS: PCP Internal Medicine; Visit Provider Internal Medicine | DX: I11.0 Hypertensive heart disease with heart failure (principal); I50.812 Chronic right heart failure; I48.19 Other persistent atrial fibrillation; I49.3 Ventricular premature depolarization; E11.8 Type 2 diabetes mellitus with unspecified complications; G47.33 Obstructive sleep apnea (adult) (pediatric) | CPT/HCPCS: 93005; 99212 ==

== ENCOUNTER 2023-05-02 08:03 | Outpatient (AMB) | payer MEDICARE, SELFPAY ==
[2023-05-02 08:10] LABS: Prothrombin Time Whole Bld POC 29.6 sec (11.1-13.5); ~PT, ~INR - Anti Coag Clinic 2.5 (0.9-1.1)
--- NOTE | 2023-05-02 08:32 | MHC.OFFVISCO ---
Intake Intake Visit Reasons: Anticoagulation Allergies Penicillins [PENICILLINS] Allergy (Intermediate, Verified 05/02/23 08:06) rash- STATES BAD RXN CHILD Medication List - Last Reconciled 05/02/23 by Hanny Paulino RN blood sugar diagnostic As directed carvedilol 12.5 mg PO DAILY cholecalciferol (vitamin D3) 25 mcg PO DAILY diltiazem HCl ER 240 mg PO DAILY furosemide 40 mg PO 2 tablets //, 1 tablet all other days; glipizide ER 5 mg PO 2 in the morning, 1 at night; metformin ER 1,500 mg PO DAILY metolazone 2.5 mg orally once/week vdndmjeebbkk-rhkolrwi-ghkbpy 1 tab PO DAILY oxycodone-acetaminophen 5-325 mg 1 tab PO PRN pen needle, diabetic As directed pravastatin 80 mg PO DAILY tamsulosin 0.4 mg PO DAILY@1700 warfarin 4 mg See Protocol PO DAILY warfarin 2 mg See Protocol PO DAILY Nursing Note NO CP,SOB,DIET/MED CHANGES,FALLS OR SX OF BLEEDING. CONTINUE PRESENT COSTA AND FOLLOW-UP IN 4 WEEKS. GOO UNDERSTANDING OF DOSING INSTR. 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
== END 2023-05-02 08:33 | disposition home or self-care (01) ==
LOC: HO.ACS 08:03
PROVIDERS: PCP Internal Medicine; Visit Provider Internal Medicine
DX: Z79.01 Long term (current) use of anticoagulants (principal)

== ENCOUNTER → 2023-05-02 08:03 | Outpatient (BNVA) | payer MEDICARE, SELFPAY | PROVIDERS: PCP Internal Medicine; Visit Provider Internal Medicine | DX: I48.20 Chronic atrial fibrillation, unspecified (principal); Z79.01 Long term (current) use of anticoagulants; Z51.81 Encounter for therapeutic drug level monitoring | CPT/HCPCS: 85610; 99211 ==

== ENCOUNTER 2023-05-30 08:00 | Outpatient (AMB) | payer MEDICARE, SELFPAY ==
[2023-05-30 08:09] LABS: Prothrombin Time Whole Bld POC 24.5 sec (11.1-13.5)
--- NOTE | 2023-05-30 08:15 | MHC.OFFVISCO ---
Intake Intake Visit Reasons: Anticoagulation Allergies Penicillins [PENICILLINS] Allergy (Intermediate, Verified 05/30/23 08:04) rash- STATES BAD RXN CHILD Medication List - Last Reconciled 05/30/23 by Sayra Adorno RN blood sugar diagnostic As directed carvedilol 12.5 mg PO DAILY cholecalciferol (vitamin D3) 25 mcg PO DAILY diltiazem HCl ER 240 mg PO DAILY furosemide 40 mg PO 2 tablets //, 1 tablet all other days; glipizide ER 5 mg PO 2 in the morning, 1 at night; metformin ER 1,500 mg PO DAILY metolazone 2.5 mg orally once/week ngjztznpappj-geitjclj-fiatdt 1 tab PO DAILY oxycodone-acetaminophen 5-325 mg 1 tab PO PRN pen needle, diabetic As directed pravastatin 80 mg PO DAILY tamsulosin 0.4 mg PO DAILY@1700 warfarin 4 mg See Protocol PO DAILY warfarin 2 mg See Protocol PO DAILY Nursing Note INR: 2.0 in therapeutic range Medications and supplements reviewed No changes in health, diet, medications, or supplements, Denies any signs and symptoms of bleeding or bruising or clotting. Bleeding, bruising, clotting discussed Nutritional guidance given -REVIEW FOOD LIST, HAVE FOODS TO HELP RAISE THE INR LIKE ORANGE AND RED VEGETABLES AND CELERY Dose: KEEP SAME 4MG WED/ 6MG X 6 DAYS F/U INR: 4 WEEKS Patient verbalizes understanding of instructions given Anti-Coag Initial Assessment Social Hx Patient Tobacco Use Status: Former Tobacco user Quit Date: 25 years ago alcohol intake: never Alcohol intake frequency: former alcohol drinker Questionnaires HAS-BLED Does the patient had uncontrolled Hypertension?: No Does the patient have renal disease?: No Does the patient have liver disease?: No Does the patient have a history of stroke?: No Has the patient had major bleeding or predisposition to bleeding?: Yes Does the patient have labile INRs?: No Is the patient over 65 years of age?: Yes Is the patient on medications that gives them a predisposition to bleeding?: Yes Does the patient use alcohol?: No HAS-BLED Score: 3 CHADSVASC Age: 66-74 Gender: Male Does the patient have a history of CHF?: Yes Does the patient have a history of Hypertension?: Yes Does the patient have a history of Stroke/TIA/Thromboembolism?: No Does the patient have a history of Vascular Disease (prior MO, PAD or aortic plaque)?: Yes Does the patient have a history of Diabetes?: Yes CHADS VACS Score: 5 Antoine Prediction Score Rsk VTE Active Cancer: No Previous VTE, excluding superficial vein thrombosis: No Reduced mobility: No Already known Thrombophilic Condition: No With-in last month Trauma and/or Surgery: No Elderly 70 year or older: Yes Heart and/or Respiratory Failure: Yes Acute Myocardial infarction and/or Ischemic Stroke: No Acute Infection and/or Rheumatologic Disorder: Yes Obesity (BMI 30 or greater): Yes Ongoing Hormonal Treatment: No Score: 4 Antoine Score less than 4; Low Risk of VTE Antoine Score 4 or greater; High Risk of VTE Coding Level of Care Code Est Patient Level 1 Diagnoses Current use of anticoagulant therapy Z79.01 Assessment & Plan Assessment & Plan (1) Current use of anticoagulant therapy: 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
== END 2023-05-30 08:21 | disposition home or self-care (01) ==
LOC: HO.ACS 08:00
PROVIDERS: PCP Internal Medicine; Visit Provider Internal Medicine
DX: Z79.01 Long term (current) use of anticoagulants (principal)

== ENCOUNTER → 2023-05-30 08:00 | Outpatient (BNVA) | payer MEDICARE, SELFPAY | PROVIDERS: PCP Internal Medicine; Visit Provider Internal Medicine | DX: I48.20 Chronic atrial fibrillation, unspecified (principal); Z79.01 Long term (current) use of anticoagulants; Z51.81 Encounter for therapeutic drug level monitoring | CPT/HCPCS: 85610; 99211 ==

== ENCOUNTER 2023-06-27 08:01 | Outpatient (AMB) | payer MEDICARE, SELFPAY ==
[2023-06-27 08:15] LABS: Prothrombin Time Whole Bld POC 24.2 sec (11.1-13.5)
--- NOTE | 2023-06-27 08:16 | MHC.OFFVISCO ---
Intake Intake Visit Reasons: Anticoagulation Allergies Penicillins [PENICILLINS] Allergy (Intermediate, Verified 06/27/23 08:05) rash- STATES BAD RXN CHILD Medication List - Last Reconciled 06/27/23 by Edith Sharif RN blood sugar diagnostic As directed carvedilol 12.5 mg PO DAILY cholecalciferol (vitamin D3) 25 mcg PO DAILY diltiazem HCl ER 240 mg PO DAILY furosemide 40 mg PO 2 tablets M//, 1 tablet all other days; glipizide ER 5 mg PO 2 in the morning, 1 at night; metformin ER 1,500 mg PO DAILY metolazone 2.5 mg orally once/week rvbwyhsccxtq-rweehqxq-bycyup 1 tab PO DAILY oxycodone-acetaminophen 5-325 mg 1 tab PO PRN pen needle, diabetic As directed pravastatin 80 mg PO DAILY tamsulosin 0.4 mg PO DAILY@1700 warfarin 4 mg See Protocol PO DAILY warfarin 2 mg See Protocol PO DAILY Nursing Note INR: 2.0 in therapeutic range of 2-3 Medications and supplements reviewed: no changes No changes in health, diet, medications, or supplements, Denies any signs and symptoms of bleeding or bruising or clotting. Bleeding, bruising, clotting discussed Nutritional guidance given to have a serving of foods from the reds list to help raise the INR. Food list reviewed Dose: 4mg X 1 day and 6mg X 6 days F/U INR: 4 weeks Patient verbalizes understanding of instructions given Anti-Coag Initial Assessment Social Hx Patient Tobacco Use Status: Former Tobacco user Quit Date: 25 years ago alcohol intake: never Alcohol intake frequency: former alcohol drinker Coding Level of Care Code Est Patient Level 1 Diagnoses Current use of anticoagulant therapy Z79.01 Results AMB INR Fingerstick AMB INR Fingerstick 2.0 Last Edit by Edith Sharif RN on 06/27/23 08:13 interface delay Assessment & Plan Assessment & Plan (1) Current use of anticoagulant therapy: Code(s): Z79.01 - [facility] (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
== END 2023-06-27 08:19 | disposition home or self-care (01) ==
LOC: HO.ACS 08:01
PROVIDERS: PCP Internal Medicine; Visit Provider Internal Medicine
DX: Z79.01 Long term (current) use of anticoagulants (principal)

== ENCOUNTER → 2023-06-27 08:01 | Outpatient (BNVA) | payer MEDICARE, SELFPAY | PROVIDERS: PCP Internal Medicine; Visit Provider Internal Medicine | DX: I48.20 Chronic atrial fibrillation, unspecified (principal); Z51.81 Encounter for therapeutic drug level monitoring; Z79.01 Long term (current) use of anticoagulants | CPT/HCPCS: 85610; 99211 ==

== ENCOUNTER 2023-07-18 09:43 | Outpatient (AMB) | payer MEDICARE, SELFPAY ==
--- NOTE | 2023-07-18 09:53 | A.SPINEOV_ITS ---
Intake Visit Reasons: low back pain Intake Note: Mr. Pang is here today c/o low back pain. Community Cultural Development Officer Required: No Allergies Penicillins [PENICILLINS] Allergy (Intermediate, Verified 07/18/23 09:54) rash- STATES BAD RXN CHILD Assessment & Plan Assessment & Plan (1) Osteoarthritis of hands, bilateral: Code(s): M19.041 - Primary osteoarthritis, right hand; M19.042 - Primary osteoarthritis, left hand Category: Medical Qualifiers: Osteoarthritis type: primary Qualified Code(s): M19.041 - Primary osteoarthritis, right hand; M19.042 - Primary osteoarthritis, left hand (2) Bilateral hand numbness: Code(s): R20.0 - Anesthesia of skin Category: Medical Plan Dear colleague Thank you for referring Leonardo Pang to the office today with a chief complaint of loss of hand function. HPI: This 74-year-old male seen today in the office. He can not tell me what the reason for the referral is. He thinks it has for a submandibular mass on the left side. I told him that he should see ENT for that lesion. On further questioning, he states that his bilateral hands are losing function with numbness and dexterity loss. He also has difficulty walking due to foot deformity and numbness of the bilateral feet. EMG testing in the past was positive for a polyneuropathy of the hands and feet. PMH: Chronic heart failure, atrial fibrillation, hypertension, diabetes, chronic opioid use, hypercholesterolemia, cochlear implants Medications: Warfarin, pravastatin, oxycodone, metolazone, metformin, glipizide, furosemide, diltiazem Allergies: Penicillins Social history: . Retired. Physical Exam: He walks with a cane. On inspection of the hand there is bilate ral deformity of the hands. There is mild muscle atrophy of the bilateral hands. There is numbness of the bilateral hands and feet. Reflex exam: A reflexia. No pathological reflexes. Radiological Studies: CT scan done of the cervical spine on 05/27/2023 shows advanced multilevel cervical spondylosis with multilevel disc degeneration, foraminal narrowing and [id number] spinal stenosis. Impression/Plan: The patient's main complaint is a left submandibular mass and dexterity loss of his hands. I do not find any signs of cervical myelopathy on his exam. He does have advanced spondylosis of the cervical spine but no clear spinal cord compression. Based on the clinical presentation, physical exam and electrode diagnostic testing, I think his symptoms are most likely related to a polyneuropathy and not related to the cervical spine. Thank you for letting me take care of your patient. Please do not hesitate to call me with any questions or concerns. Bruce Burgos MD, PhD Spine Fellowship Trained Neurosurgeon Director, [facility] Thank you for allowing me to participate in your patients care. total time spent was 50 minutes in counseling ,coordination of plan, personal review of imaging, surgical decision making and subsequent plan Bruce Burgos MD, PhD Spine Fellowship Trained Neurosurgeon Director, [facility] Coding Level of Care Code New Pt Level 4 (29753) Diagnoses Primary osteoarthritis of both hands M19.041; M19.042 Osteoarthritis type: primary Bilateral hand numbness R20.0
== END 2023-07-18 11:56 | disposition home or self-care (01) ==
PROVIDERS: PCP Internal Medicine; Referring Provider Internal Medicine; Visit Provider Neurological Surgery
DX: M19.041 Primary osteoarthritis, right hand (principal); M19.042 Primary osteoarthritis, left hand; R20.0 Anesthesia of skin
CPT/HCPCS: 99204

== ENCOUNTER → 2023-07-18 09:43 | Outpatient (BNVA) | payer MEDICARE, SELFPAY | PROVIDERS: PCP Internal Medicine; Visit Provider Neurological Surgery | DX: M19.041 Primary osteoarthritis, right hand (principal); M19.042 Primary osteoarthritis, left hand; R20.0 Anesthesia of skin | CPT/HCPCS: 99202 ==

== ENCOUNTER 2023-07-25 08:03 | Outpatient (AMB) | payer MEDICARE, SELFPAY ==
[2023-07-25 08:25] LABS: Prothrombin Time Whole Bld POC 20.9 sec (11.1-13.5); ~PT, ~INR - Anti Coag Clinic 1.7 (0.9-1.1)
--- NOTE | 2023-07-25 08:28 | MHC.OFFVISCO ---
Intake Intake Visit Reasons: Anticoagulation Allergies Penicillins [PENICILLINS] Allergy (Intermediate, Verified 07/25/23 08:04) rash- STATES BAD RXN CHILD Medication List - Last Reconciled 07/25/23 by Edith Sharif RN blood sugar diagnostic As directed carvedilol 12.5 mg PO DAILY cholecalciferol (vitamin D3) 25 mcg PO DAILY diltiazem HCl ER 240 mg PO DAILY furosemide 40 mg PO 2 tablets //, 1 tablet all other days; glipizide ER 5 mg PO 2 in the morning, 1 at night; metformin ER 1,500 mg PO DAILY metolazone 2.5 mg orally once/week ywobpytekkrp-diidapsj-plsaur 1 tab PO DAILY oxycodone-acetaminophen 5-325 mg 1 tab PO PRN pen needle, diabetic As directed pravastatin 80 mg PO DAILY tamsulosin 0.4 mg PO DAILY@1700 warfarin 4 mg See Protocol PO DAILY warfarin 2 mg See Protocol PO DAILY Nursing Note INR 1.7?out of therapeutic range of 2-3 Medications and supplements reviewed Patient status: having a difficult time getting to the clinic d/t pain/arthritis. Pt using a cane. Medications or supplements: magnesium and vit b12 Diet: usual diet Denies any signs and symptoms of bleeding or clotting or unusual bruising Bleeding, bruising, clotting discussed Nutritional guidance given: to avoid greens today and have a serving of foods from the side that raises the INR. Food list reviewed. Dose: 6mg daily. Increased from 6mg X6 days and 4mg X1 day. F/U INR Date : 4 weeks?? Patient verbalizing understanding of instructions given. 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
== END 2023-07-25 08:48 | disposition home or self-care (01) ==
LOC: HO.ACS 08:03
PROVIDERS: PCP Internal Medicine; Visit Provider Internal Medicine
DX: Z79.01 Long term (current) use of anticoagulants (principal)

== ENCOUNTER → 2023-07-25 08:03 | Outpatient (BNVA) | payer MEDICARE, SELFPAY | PROVIDERS: PCP Internal Medicine; Visit Provider Internal Medicine | DX: I48.20 Chronic atrial fibrillation, unspecified (principal); Z79.01 Long term (current) use of anticoagulants; Z51.81 Encounter for therapeutic drug level monitoring | CPT/HCPCS: 85610; 99211 ==

== ENCOUNTER 2023-08-22 08:04 | Outpatient (AMB) | payer MEDICARE, SELFPAY ==
--- NOTE | 2023-08-22 08:13 | MHC.OFFVISCO ---
Intake Intake Visit Reasons: Anticoagulation Allergies Penicillins [PENICILLINS] Allergy (Intermediate, Verified 08/22/23 08:04) rash- STATES BAD RXN CHILD Medication List - Last Reconciled 08/22/23 by Sayra Adorno RN blood sugar diagnostic As directed carvedilol 12.5 mg PO DAILY cholecalciferol (vitamin D3) 25 mcg PO DAILY diltiazem HCl ER 240 mg PO DAILY furosemide 40 mg PO 2 tablets //, 1 tablet all other days; glipizide ER 5 mg PO 2 in the morning, 1 at night; metformin ER 1,500 mg PO DAILY metolazone 2.5 mg orally once/week snkqbcvvfazy-hodfzeec-owbnqi 1 tab PO DAILY oxycodone-acetaminophen 5-325 mg 1 tab PO PRN pen needle, diabetic As directed pravastatin 80 mg PO DAILY tamsulosin 0.4 mg PO DAILY@1700 warfarin 4 mg See Protocol PO DAILY warfarin 2 mg See Protocol PO DAILY Nursing Note INR 3.1 out of therapeutic range Medications and supplements reviewed Patient status: C/O ARTHRITIS PAIN Medications or supplements: STOPPED B12 AND MAGNESIUM STATED HE HAD SMALL AMT OF HEMATURIA -ENC TO TELL MD Diet: GOOD Denies any signs and symptoms of bleeding or clotting or unusual bruising Bleeding, bruising, clotting discussed Nutritional guidance given: RESUME WEEKLY GREENS WHILE HAVING THE REDS - HE HAD SOME CANBERRY AND STRAWBERRY Dose: KEEP SAME DOSE 6MG DAILY AND RESUME WEEKLY GREENS F/U INR Date : 4 WEEKS PER PT REQUEST TO CALL IF STARTS ANY NEW TREATMENTS ?? Patient verbalizing understanding of instructions given. Anti-Coag Initial Assessment Social Hx Patient Tobacco Use Status: Former Tobacco user alcohol intake: never Alcohol intake frequency: former alcohol drinker Coding Level of Care Code Est Patient Level 1 Diagnoses Current use of anticoagulant therapy Z79.01 Results AMB INR Fingerstick AMB INR Fingerstick 3.1 Last Edit by Sayra Adorno RN on 08/22/23 08:15 manual entry Assessment & Plan Assessment & Plan (1) Current use of anticoagulant therapy: Code(s): Z79.01 - snf (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
[2023-08-22 08:14] LABS: Prothrombin Time Whole Bld POC 36.7 sec (11.1-13.5); ~PT, ~INR - Anti Coag Clinic 3.1 (0.9-1.1)
== END 2023-08-22 08:23 | disposition home or self-care (01) ==
LOC: HO.ACS 08:04
PROVIDERS: PCP Internal Medicine; Visit Provider Internal Medicine
DX: Z79.01 Long term (current) use of anticoagulants (principal)

== ENCOUNTER 2023-08-22 10:54 | Outpatient (REF) | payer MEDICARE, SELFPAY ==
[2023-08-22 13:38] LABS: MANUAL DIFF FLAG NO
[2023-08-22 13:51] LABS: Basophils Percent Auto 0.5 % (0-2); Eosinophils Absolute Auto 0.3 X10*3/uL (0.0-0.4); Eosinophils Percent Auto 3.5 % (0-4); Hematocrit 37.7 % (42.0-52.0); Hemoglobin 12.8 g/dl (14.0-18.0); Imm Gran Abs Auto 0.02 X10*3/uL (0.00-0.03); Imm Gran Pct Auto 0.3 % (0.0-0.4); Lymphocytes Absolute Auto 1.5 X10*3/uL (1.2-4.9); Lymphocytes Percent Auto 18.6 % (20-40); Mean Corpuscular Hemoglobin 32.1 pg (27.0-33.0); Mean Corpuscular Volume 94.5 fL (80.0-98.0); Mean Platelet Volume 10.9 fL (9.4-12.4); Monocytes Absolute Auto 0.8 X10*3/uL (0.1-1.2); Monocytes Percent Auto 10.6 % (2-11); Neutrophils Absolute Auto 5.2 x10*3/uL (2.0-8.3); Neutrophils Percent Auto 66.5 % (45-73); Platelet Count 179 X10*3/uL (160-400); Red Blood Count 3.99 X10*6/uL (4.60-5.80); White Blood Count 7.9 X10*3/uL (4.8-10.8)
[2023-08-22 14:25] LABS: Alanine Aminotransferase 13 U/L (0-40); Alkaline Phosphatase 58 U/L (39-117); Anion Gap 14 (12-20); Aspartate Amino Transferase 25 U/L (5-37); Bilirubin Total 0.6 mg/dL (0.0-1.0); Blood Urea Nitrogen 27 mg/dL (9-16); Calcium 9.1 mg/dL (8.4-10.2); Carbon Dioxide 30 mmol/L (22-29); Chloride 100 mmol/L (96-108); Estimated Glomerular Filt Rate > 60; Glucose Random 146 mg/dL (60-115); Sodium 140 mmol/L (135-145); Total Protein 6.8 g/dL (6.5-8.0)
[2023-08-22 14:30] LABS: Estimated Average Glucose 148 mg/dL; Hemoglobin A1c % 6.8 % (<6.0)
[2023-08-22 15:37] LABS: Creatinine Urine 47.42 mg/dL; Microalbum/Creatinine Ratio Ur 50.6 ug/mg cr (<30)
== END 2023-08-22 10:55 | disposition home or self-care (01) ==
LOC: HO.10HDL 10:54
PROVIDERS: Visit Provider Internal Medicine
DX: I48.91 Unspecified atrial fibrillation (principal); I10 Essential (primary) hypertension; E11.9 Type 2 diabetes mellitus without complications; R60.9 Edema, unspecified; Z12.5 Encounter for screening for malignant neoplasm of prostate
CPT/HCPCS: 36415; 80053; 82043; 82570; 83036; 85025; 85610; 99211

== ENCOUNTER 2023-09-05 16:44 | Inpatient (IN) | payer MEDICARE, SELFPAY ==
--- NOTE | ~2023-09-05 | US_ITS ---
EXAMINATION: US VENOUS ULTRASOUND WITH DOPPLER LOWER EXTREMITY, RIGHT CLINICAL INFORMATION: Right lower extremity swelling and edema. COMPARISON: None available. TECHNIQUE: Ultrasound of the deep veins is performed from the hip to the calf with compression sonography and color and pulse Doppler assessment. Spectral analysis with color-flow imaging is performed. FINDINGS: There is normal venous compression and respiratory variation and augmented flow. The visualized common femoral vein, femoral vein, profunda femoral vein, popliteal vein, and the trifurcation region demonstrate no evidence of deep venous thrombosis. No Prather's cyst is seen. Incidentally visualized, normal-appearing right groin lymph node measuring 1.0 cm in short axis and demonstrating a normal fatty hilum. US/US venous duplex LE RT IMPRESSION: No evidence of deep venous thrombosis of the right lower extremity.
--- NOTE | ~2023-09-05 | CT_ITS ---
EXAMINATION: CT FOOT WITHOUT CONTRAST, RIGHT CLINICAL INFORMATION: Right heel pain. COMPARISON: Right foot February 02, 2021 TECHNIQUE: Axial images obtained through the right foot without intravenous contrast. Coronal and sagittal reformatted images are performed at CT scanner. This CT examination was performed using dose optimization techniques as appropriate, variously including the following: *Automated exposure control *Adjustment of mA and/or kV according to patient size (this includes techniques or standardized protocols for targeted exams where dose is matched to indication/reason for exam; i.e. extremities or head) *Use of iterative reconstruction technique DLP: 129 mGy-cm FINDINGS: Advanced arthritic changes throughout the mid and hindfoot similar in severity to the plain film study of February 02, 2021. There is joint narrowing and extensive subchondral cystic changes throughout the mid and hindfoot. There is flattening of the plantar arch which is chronic. There are multiple periarticular bone fragments suggesting Charcot joint throughout the mid and hindfoot. No evidence of an acute bone destruction. There is mild diffuse edema throughout the foot. No drainable fluid collection. CT/CT foot RT wo IV con IMPRESSION: 1. Advanced arthritic changes throughout the mid and hindfoot similar in severity to the plain film study of February 02, 2021. No evidence of an acute bone destruction. 2. Mild diffuse edema throughout the foot. No drainable fluid collection.
[2023-09-05 16:50] VITALS: BP 126/60; PULSE 80; RESP 17; TEMP 36.2; O2SAT 100; BMI 38.8
--- NOTE | 2023-09-05 16:54 | ED_ITS ---
HPI - General Adult General Chief complaint: Extremity Problem Stated complaint: leg swelling, possible foot infection, diabetic Time Seen by Provider: 09/05/23 19:06 Source: family Mode of arrival: ambulatory Limitations: no limitations History of Present Illness ED Provider: Vesta MIN HPI narrative: 73-year-old male history of PVCs, JUDIE, heart failure, diabetes, hypertension, obesity, atrial fibrillation on Coumadin presenting with right lower extremity swelling and right foot wound worsening over the past week. Patient reports he is a diabetic he has had history of osteomyelitis in the past and he feels like this may be similar. He reports overall feeling unwell with subjective chills however unclear if he has had a fever. Denies chest pain, shortness of breath, nausea, vomiting, abdominal pain, headache, vision changes, dizziness, weakness. No blunt trauma to foot Related Data Home Medications ?Medication ?Instructions ?Recorded ?Confirmed metformin 500 mg tablet,extended 1,500 mg PO DAILY 12/31/19 08/22/23 release 24 hr pravastatin 80 mg tablet 80 mg PO DAILY 12/31/19 08/22/23 tamsulosin 0.4 mg capsule 0.4 mg PO DAILY@1700 12/31/19 08/22/23 cholecalciferol (vitamin D3) 25 25 mcg PO DAILY 05/08/20 08/22/23 mcg (1,000 unit) capsule glipizide 5 mg tablet, extended 5 mg PO .COMPLEX 05/08/20 08/22/23 release 24 hr osfzqoksfbwg-nhmuyxes-rirzos tablet 1 tab PO DAILY 05/08/20 08/22/23 oxycodone-acetaminophen 5 mg-325 1 tab PO PRN 05/08/20 08/22/23 mg tablet blood sugar diagnostic #10 ea 06/12/20 08/22/23 pen needle, diabetic 31 gauge x #50 ea 06/12/20 08/22/2305/23 furosemide 40 mg tablet 40 mg PO .COMPLEX 01/02/21 08/22/23 diltiazem HCl 240 mg capsule,24 240 mg PO DAILY 06/26/21 08/22/23 hr,extended release carvedilol 12.5 mg tablet 12.5 mg PO DAILY 10/07/22 08/22/23 Previous Rx's ?Medication ?Instructions ?Recorded warfarin 2 mg tablet 2 mg PO DAILY #90 tabs 12/23/19 warfarin 4 mg tablet 4 mg PO DAILY #90 tabs 12/23/19 metolazone 2.5 mg tablet 2.5 mg PO .COMPLEX #30 tabs 08/25/23 Allergies Allergy/AdvReac Type Severity Reaction Status Date / Time Penicillins [PENICILLINS] Allergy Intermediate rash- Verified 09/05/23 16:53 STATES BAD RXN CHILD Review of Systems 2 Review of Systems: Yes all other systems are reviewed and are negative [facility] Past Medical History Attestation statement: The following information was validated with the patient. Source: old records reviewed and nursing notes reviewed Medical History Anemia Atrial fibrillation BPH (benign prostatic hyperplasia) Chronic a-fib COPD (chronic obstructive pulmonary disease) Deafness in left ear Diabetes Essential hypertension GERD (gastroesophageal reflux disease) Hard of hearing History of amputation of toe Obesity JUDIE (obstructive sleep apnea) Osteoarthritis Osteoarthritis of left knee Peripheral edema Persistent atrial fibrillation Type 2 diabetes mellitus with unspecified complications Venous stasis Surgical History History of bilateral hip replacements Hx of colonoscopy Hx of total knee arthroplasty Hx of total shoulder replacement Uses cochlear implant Family History Family History Father No problems noted. 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 Oriented X3.? No acute distress.? Head: Normocephalic, atraumatic, no step-offs or deformities Eyes: Pupils equal, round and reactive to light.? ENT: Pharynx normal.? Neck: Normal inspection.? Neck supple.? CVS: Normal heart rate and rhythm.? Pulses normal.? Respiratory: No respiratory distress.? Breath sounds normal.? Abdomen: Soft and nontender.? Skin: Skin warm and dry.? Normal skin color.? Normal skin turgor.? Extremities: 3+ non pitting edema from right knee down. 1+ non pitting to LLE. 2+ DP,AT,pt equal b/l. ? No calf ttp. 5/5 strength to bilateral upper and lower extremities + large foot wound to tallus of right foot w/ drainage and open area. Neuro: Oriented X 3.? No motor deficit.? No sensory deficit. CN 2-12 intact Course Course Course Narrative: RME performed by Maria Alejandra Cooper PA-C. Patient is a 73 year old assigned male at presenting to the emergency department with DM. Patient states he has large balls in his feet that nobody will do anything about because he is a diabetic. Patient states that one of these balls has erupted. Detailed physical exam and review of systems are deferred to the licensing coordinator. Labs ordered. Patient placed back in the waiting room pending room availability and results. Reevaluation(s) Reevaluation #1: CBC with leukocytosis. No left shift. Chemistry unremarkable. Elevated ESR CRP. Negative lactic acid. CT foot advanced arthritic changes throughout the mid and hindfoot similar to previous films. No evidence of acute bone destruction. Mild diffuse edema throughout the foot. No drainable fluid collection. Patient was started on clindamycin and vancomycin. Plan at this time is hospital admission for diabetic foot. DVT study negative. Time: 21:36 Medications Administered Discontinued Medications Generic Name Dose Route Start Last Admin Trade Name Freq PRN Reason Stop Dose Admin Vancomycin HCl 2,000 mg in 500 mls @ 250 mls/hr 09/05/23 19:12 09/05/23 20:34 Vancomycin/Ns IV 09/05/23 21:11 250 mls/hr ONCE ONE Administration Clindamycin Phosphate 300 mg in 50 mls @ 100 mls/hr 09/05/23 19:12 09/05/23 20:34 Cleocin IV 09/05/23 19:41 Infused ONCE ONE Infusion Medical Decision Making Medical Decision Making [facility] Narrative: 73-year-old male presents with right lower extremity swelling and right foot wound present for the past week worsening. History of diabetes and osteomyelitis. On blood thinners. Physical exam large foot wound to tallus of right foot w/ drainage and open area. History and physical exam concerning for diabetic foot with likely early cellulitis. Unlikely osteomyelitis, septic joint, arterial or venous occlusion or acute threat to limb. Plan labs, imaging. Will initiate antibiotics clindamycin and vancomycin as patient does have a penicillin allergy. Differential Diagnosis Differential Diagnoses: The differential diagnosis associated with the presentation includes History and physical exam concerning for diabetic foot with likely early cellulitis. Unlikely osteomyelitis, septic joint, arterial or venous occlusion or acute threat to limb. Lab Data 09/05/23 17:11 09/05/23 17:11 Labs: Lab Results 09/05/23 09/05/23 Range/Units 17:11 19:45 WBC 12.7 H (4.8-10.8) X10*3/uL RBC 4.02 L (4.60-5.80) X10*6/uL Hgb 13.1 L (14.0-18.0) g/dl Hct 37.8 L (42.0-52.0) % MCV 94.0 (80.0-98.0) fL MCH 32.6 (27.0-33.0) pg MCHC 34.7 (31.0-36.0) g/dl RDW 12.7 (11.0-16.0) % Plt Count 245 D (160-400) X10*3/uL MPV 10.0 (9.4-12.4) fL Immature Gran % (Auto) 0.5 H (0.0-0.4) % Neut % (Auto) 72.2 (45-73) % Lymph % (Auto) 13.6 L (20-40) % [place] % (Auto) 11.3 H (2-11) % Eos % (Auto) 2.1 (0-4) % Baso % (Auto) 0.3 (0-2) % Lymph # (Auto) 1.7 (1.2-4.9) X10*3/uL [place] # (Auto) 1.4 H (0.1-1.2) X10*3/uL Eos # (Auto) 0.3 (0.0-0.4) X10*3/uL Baso # (Auto) 0.0 (0.0-0.2) X10*3/uL Abs Immat Gran (auto) 0.07 H (0.00-0.03) X10*3/uL Absolute Neuts (auto) 9.2 H (2.0-8.3) x10*3/uL Absolute Nucleated RBC 0.000 (0.0-0.012) X10*3/uL Nucleated RBC % (auto) 0.0 (0.0-0.2) /100WBC ESR 43 H (0-15) MM/HR Sodium 142 (135-145) mmol/L Potassium 4.2 (3.3-5.1) mmol/L Chloride 100 (96-108) mmol/L Carbon Dioxide 33 H (22-29) mmol/L Anion Gap 13 (12-20) BUN 21 H (9-16) mg/dL Creatinine 1.13 (0.5-1.4) mg/dL Estim Creat Clear Calc 74.0 Estimated GFR > 60 Random Glucose 124 H (60-115) mg/dL Lactic Acid 2.0 (0.5-2.0) mmol/L Calcium 9.7 D (8.4-10.2) mg/dL Magnesium 2.0 (1.6-2.6) mg/dL Total Bilirubin 0.5 (0.0-1.0) mg/dL AST 25 (5-37) U/L ALT 14 (0-40) U/L Alkaline Phosphatase 68 (39-117) U/L C-Reactive Protein 5.40 H (< or = 0.50) mg/dL Total Protein 7.2 (6.5-8.0) g/dL Albumin 3.9 (3.5-5.0) g/dL Critical Care Time Critical Care Time Critical Care Time: Yes Total Critical Care Time: 35 Attestation: I attest to this time spent taking care of the patient, obtaining history, physical, reviewing labs, imaging, speaking to my attending, specialist or hospitalist. Discharge Plan Discharge Clinical Impression: Diabetic foot ulcer, Cellulitis Patient Disposition: Admitted As Inpatient Print Language: Greek
[2023-09-05 17:18] LABS: MANUAL DIFF FLAG NO
[2023-09-05 17:19] LABS: Basophils Percent Auto 0.3 % (0-2); Eosinophils Absolute Auto 0.3 X10*3/uL (0.0-0.4); Eosinophils Percent Auto 2.1 % (0-4); Hematocrit 37.8 % (42.0-52.0); Hemoglobin 13.1 g/dl (14.0-18.0); Imm Gran Abs Auto 0.07 X10*3/uL (0.00-0.03); Imm Gran Pct Auto 0.5 % (0.0-0.4); Lymphocytes Absolute Auto 1.7 X10*3/uL (1.2-4.9); Lymphocytes Percent Auto 13.6 % (20-40); Mean Corpuscular HGB Conc 34.7 g/dl (31.0-36.0); Mean Corpuscular Hemoglobin 32.6 pg (27.0-33.0); Monocytes Absolute Auto 1.4 X10*3/uL (0.1-1.2); Monocytes Percent Auto 11.3 % (2-11); Neutrophils Absolute Auto 9.2 x10*3/uL (2.0-8.3); Neutrophils Percent Auto 72.2 % (45-73); Platelet Count 245 X10*3/uL (160-400); Red Blood Count 4.02 X10*6/uL (4.60-5.80); Red Cell Distribution Width 12.7 % (11.0-16.0); White Blood Count 12.7 X10*3/uL (4.8-10.8)
[2023-09-05 17:32] LABS: Alanine Aminotransferase 14 U/L (0-40); Albumin Level 3.9 g/dL (3.5-5.0); Alkaline Phosphatase 68 U/L (39-117); Anion Gap 13 (12-20); Aspartate Amino Transferase 25 U/L (5-37); Bilirubin Total 0.5 mg/dL (0.0-1.0); Blood Urea Nitrogen 21 mg/dL (9-16); Calcium 9.7 mg/dL (8.4-10.2); Carbon Dioxide 33 mmol/L (22-29); Chloride 100 mmol/L (96-108); Estimated Glomerular Filt Rate > 60; Glucose Random 124 mg/dL (60-115); Potassium 4.2 mmol/L (3.3-5.1); Sodium 142 mmol/L (135-145); Total Protein 7.2 g/dL (6.5-8.0)
[2023-09-05 17:58] LABS: Erythrocyte Sedimentation Rate 43 MM/HR (0-15)
[2023-09-05 19:34] VITALS: BP 146/68; PULSE 68; RESP 18; TEMP 37; O2SAT 99
[2023-09-05] MEDS: Clindamycin Phosphate/D5W 300 MG/50 ML PIGGYBACK 100 MG IV (20:07)
--- NOTE | 2023-09-05 20:14 | MHC.EDTECH ---
This tech took over care of patient at 1900,hourly rounds and vitals completed,blood cultures and lactic obtained and sent to lab,patient is sitting in wheelchair does not want to lay on bed at this time,call wong in reach
[2023-09-05] MEDS: vancomycin/NS 2,000 MG/500 ML PLAST..BAG 250 MG IV (20:34)
--- NOTE | 2023-09-05 21:29 | P.HPHOSP_ITS ---
History of Present Illness Date of Service: 09/05/23 Attending physician on admission: Jet Gurrola Chief Complaint: Foot infection Pt is a 73-year-old male with a PMH significant for?chronic AFib on Coumadin, HFpEF, JUDIE not compliant with CPAP, HLD, non-insulin dependent type 2 diabetes, Charcot foot, and neuropathy who presents to the ED for evaluation of open right diabetic foot wound. Pt has hx of Charcot foot x2 with two large swollen/calloused areas on the bottoms of his feet that have been ongoing for 5+ years. Has been seen by specialist who recommended surgical treatment to remove them though pt has declined so far since he would apparently need to be off his feet for over a month to recover. Reports has had increased right foot and cordova swelling, pain, and possible redness for the past 3-4 days. No fever or chills. This afternoon after a shower his notice the sac on the bottom of his right foot had split open and was draining a mostly clear fluid without noticeable odor. Pt denies any other acute medical complaints. In the ED pt's vitals stable. Labs were significant for leukocytosis of 12.7, ESR 43, and C-reactive protein 5.40. Stable H& H. No significant electrolyte abnormalities. Renal and hepatic function around baseline. Lactic acid WNL at 2.0. CT?of right foot showed no evidence of acute bone destruction, though did show mild diffuse edema throughout the foot with no drainable fluid collection. Also showed advanced arthritic changes throughout the mid and hindfoot similar to previous. Venous duplex ultrasound of right lower extremity found no evidence of DVT. Pt was treated with vancomycin and clindamycin. Pt will be admitted to the hospital for treatment and further evaluation of right foot cellulitis in the setting of diabetic foot ulcer. Review of Systems 2 Review of Systems: Right lower leg and foot swelling, pain, and redness Open, draining wound on bottom of right foot No fever, chills Denies chest pain/pressure, palpitations No SOB or difficulty breathing Denies abd pain PMFSH Medical History Type 2 diabetes mellitus with unspecified complications Essential hypertension Persistent atrial fibrillation Osteoarthritis of left knee Deafness in left ear JUDIE (obstructive sleep apnea) Osteoarthritis Anemia Venous stasis Hard of hearing Obesity GERD (gastroesophageal reflux disease) BPH (benign prostatic hyperplasia) Diabetes Peripheral edema Atrial fibrillation COPD (chronic obstructive pulmonary disease) Chronic a-fib Family History Father No problems noted. Mother Stroke Surgical History Hx of total knee arthroplasty History of amputation of toe Hx of total shoulder replacement Hx of colonoscopy History of bilateral hip replacements Uses cochlear implant Social History Household Members: Spouse Housing: House Do you presently have visiting nurse or other home services: No (for discharge) Alcohol intake: never Patient Tobacco Use Status: Former Tobacco user Smoked in Last 30 Days: No Second Hand Smoke Exposure: No Use of substances other than those prescribed or required for medical reasons: No Advance Directives: Yes Advance Directives on File: Yes Advance Directives Date on File: 12/31/19 Do you have a plan to hurt others: No Plan service: No 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al status: retired 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 Meds Allergies Allergy/AdvReac Type Severity Reaction Status Date / Time Penicillins [PENICILLINS] Allergy Intermediate rash- Verified 09/05/23 16:53 STATES BAD RXN CHILD Home Medications ?Medication ?Instructions ?Recorded ?Confirmed ?Last Taken ?Type metformin 500 mg tablet,extended 1,500 mg PO DAILY 12/31/19 08/22/23 Unknown History release 24 hr pravastatin 80 mg tablet 80 mg PO DAILY 12/31/19 08/22/23 Unknown History tamsulosin 0.4 mg capsule 0.4 mg PO DAILY@1700 12/31/19 08/22/23 Unknown History cholecalciferol (vitamin D3) 25 25 mcg PO DAILY 05/08/20 08/22/23 Unknown History mcg (1,000 unit) capsule glipizide 5 mg tablet, extended 5 mg PO .COMPLEX 05/08/20 08/22/23 Unknown History release 24 hr pnyrnajmrlbv-strsoamo-ysdiuc tablet 1 tab PO DAILY 05/08/20 08/22/23 Unknown History oxycodone-acetaminophen 5 mg-325 1 tab PO PRN 05/08/20 08/22/23 Unknown History mg tablet blood sugar diagnostic #10 ea 06/12/20 08/22/23 Unknown History pen needle, diabetic 31 gauge x #50 ea 06/12/20 08/22/23 Unknown History 05/23 furosemide 40 mg tablet 40 mg PO .COMPLEX 01/02/21 08/22/23 Unknown History diltiazem HCl 240 mg capsule,24 240 mg PO DAILY 06/26/21 08/22/23 11/01/22 History hr,extended release carvedilol 12.5 mg tablet 12.5 mg PO DAILY 10/07/22 08/22/23 11/01/22 History Physical Exam 2 Vital Signs and Narrative: Vital Signs: Last Vital Signs Temp 98.6 F 09/05/23 19:34 Pulse 68 09/05/23 19:34 Resp 18 09/05/23 19:34 BP 146/68 H 09/05/23 19:34 Pulse Ox 99 09/05/23 19:34 O2 Del Method Room Air 09/05/23 19:34 BMI result Body Mass Index 38.8 General: AOx3, no acute distress Resp: CTA bilaterally CVS: S1, S2, RRR GI: +BS, NT, no distention Skin: Warm, dry Neuro: Cranial nerves II-XII grossly intact bilaterally. Motor grossly intact bilaterally Extremities: Significant non-pitting lower leg and foot edema bilaterally. Bilateral feet with obvious Charcot foot deformities. Right foot and cordova with warmth and erythema. Open wound with serous sanguinous drainage on pedal aspect of of right lateral midfoot. As pictured below Psych: Appropriate affect Results Labs 09/05/23 17:11 09/05/23 17:11 Labs: Laboratory Results - last 24 hr 09/05/23 09/05/23 17:11 19:45 MCV 94.0 MCH 32.6 MCHC 34.7 RDW 12.7 Plt Count 245 D MPV 10.0 Immature Gran % (Auto) 0.5 H Neut % (Auto) 72.2 Lymph % (Auto) 13.6 L [place] % (Auto) 11.3 H Eos % (Auto) 2.1 Baso % (Auto) 0.3 Lymph # (Auto) 1.7 [place] # (Auto) 1.4 H Eos # (Auto) 0.3 Baso # (Auto) 0.0 Abs Immat Gran (auto) 0.07 H Absolute Neuts (auto) 9.2 H Absolute Nucleated RBC 0.000 Nucleated RBC % (auto) 0.0 ESR 43 H Anion Gap 13 Estim Creat Clear Calc 74.0 Estimated GFR > 60 Random Glucose 124 H Lactic Acid 2.0 Calcium 9.7 D Magnesium 2.0 Total Bilirubin 0.5 AST 25 ALT 14 Alkaline Phosphatase 68 C-Reactive Protein 5.40 H Total Protein 7.2 Albumin 3.9 Imaging Radiologist's Impressions: Impressions Foot CT 09/05/23 19:26 IMPRESSION: 1. Advanced arthritic changes throughout the mid and hindfoot similar in severity to the plain film study of February 02, 2021. No evidence of an acute bone destruction. 2. Mild diffuse edema throughout the foot. No drainable fluid collection. Venous Duplex 09/05/23 20:26 IMPRESSION: No evidence of deep venous thrombosis of the right lower extremity. Assessment and Plan (1) Cellulitis: Qualifiers: Site of cellulitis: extremity Site of cellulitis of extremity: lower extremity Laterality: right Qualified Code(s): L03.115 - Cellulitis of right lower limb Status: Acute (2) Diabetic foot ulcer: Qualifiers: Diabetic foot ulcer location: midfoot Diabetes mellitus type: type 2 L aterality: right Non-pressure ulcer stage: limited to breakdown of skin Q ualified Code(s): E11.621 - Type 2 diabetes mellitus with foot ulcer; L97.411 - Non-pressure chronic ulcer of right heel and midfoot limited to breakdown of skin Status: Acute Plan Pt is a 73-year-old male with a PMH significant for?chronic AFib on Coumadin, HFpEF, JUDIE not compliant with CPAP, HLD, non-insulin dependent type 2 diabetes, Charcot foot, and neuropathy who presents to the ED for evaluation of open right diabetic foot wound. Pt will be admitted to the hospital for treatment and further evaluation of right foot cellulitis in the setting of diabetic foot ulcer. Right lower extremity cellulitis Patient with warmth, erythema, and open draining wound on bottom of right foot Patient does not meet sepsis criteria: Leukocytosis, but no fever, tachycardia, or tachypnea; lactic acid WNL Will treat with vancomycin and cefepime, started 09/06/2023 General surgery consult for possible debridement Will hold Coumadin for now Follow cultures HFpEF Not in acute exacerbation Continue furosemide, metolazone Persistent atrial fibrillation Continue diltiazem, carvedilol Currently holding Coumadin due to possible surgical procedure HLD Continue statin BPH Continue tamsulosin Insulin-dependent type 2 diabetes Hold metformin Continue glipizide Place on sliding scale insulin Diabetic diet Full Code Attending:?Dr. Andersen DVT Prophylaxis: On Coumadin Pt will require a hospitalization of at least two nights for treatment of?right lower extremity cellulitis in the setting of open diabetic foot ulcer. Patient will require administration of IV antibiotics, monitoring of blood cultures, and specialist consultation with General surgery. Quality Stroke Does the patient have a stroke diagnosis?: No VTE Prior VTE?: No VTE Risk Level:: Medical - moderate - high VTE Device Contraindication: Treatment Not Indicated VTE Drug Contraindication: N/A - Med Ordered
[2023-09-05 22:07] VITALS: BP 123/69; PULSE 67; RESP 18; TEMP 36.7; O2SAT 99
--- NOTE | 2023-09-05 22:12 | MHC.EDTECH ---
Hourly rounds and vitals completed,lab drawn and sent to lab,belongings list completed and copy placed in chart
[2023-09-06 00:17] VITALS: BP 102/67; PULSE 69; RESP 18; TEMP 36.5; O2SAT 98
[2023-09-06] MEDS: cefEPime HCl 2 GM in 0.9 % Sodium Chloride 50 ML IV ×3 (02:27→16:56)
--- NOTE | 2023-09-06 02:37 | PC.NURSE ---
Cefepime late d/t t/w dealing with other critical pt. aware.
[2023-09-06 02:54] VITALS: BP 135/71; PULSE 58; RESP 18; TEMP 36.1; O2SAT 97
[2023-09-06 02:58] VITALS: BMI 38.5
--- NOTE | 2023-09-06 03:35 | HO.SKINPHOTO ---
Location: right foot wound Category: Stage: Length: Width: Depth: cm Location: Category: Stage: Length: Width: Depth: cm Location: Category: Stage: Length: Width: Depth: cm Location: Category: Stage: Length: Width: Depth: cm Location: Category: Stage: Length: Width: Depth: cm Location: Category: Stage: Length: Width: Depth: cm
[2023-09-06] MEDS: oxyCODONE HCl Immed Release 5 MG TABLET PO ×4 (03:46→19:38)
[2023-09-06 07:12] VITALS: BP 140/83; PULSE 60; RESP 16; TEMP 36.3; O2SAT 97
[2023-09-06 07:23] LABS: Glucose, Whole Blood 95 mg/dL (60-115)
[2023-09-06 07:43] LABS: Hematocrit 35.1 % (42.0-52.0); Hemoglobin 12.3 g/dl (14.0-18.0); Mean Corpuscular Hemoglobin 33.2 pg (27.0-33.0); Mean Corpuscular Volume 94.9 fL (80.0-98.0); Mean Platelet Volume 9.7 fL (9.4-12.4); Platelet Count 221 X10*3/uL (160-400); Red Cell Distribution Width 12.9 % (11.0-16.0); White Blood Count 10.1 X10*3/uL (4.8-10.8)
[2023-09-06] MEDS: 0.9 % Sodium Chloride Flush 3 ML SYRINGE IVFLUSH ×3 (07:52→19:39)
[2023-09-06 08:00] LABS: Anion Gap 12 (12-20); Blood Urea Nitrogen 18 mg/dL (9-16); Carbon Dioxide 32 mmol/L (22-29); Chloride 103 mmol/L (96-108); Creatinine Clr Calc Pharmacy 82.5; Estimated Glomerular Filt Rate > 60; Glucose Random 105 mg/dL (60-115); Potassium 4.2 mmol/L (3.3-5.1); Sodium 143 mmol/L (135-145)
--- NOTE | 2023-09-06 08:19 | PHA.PROG ---
Admission Date/Time: September 06, 2023 00:05 Indication: SSTI Weight in k kg Adjusted body weight in K KG [place] body weight in K.4 KG Obesity Dosing Indication % IBW: Serum Creatinine - Last 168 Hours 09/05/23 09/06/23 17:11 07:36 Creatinine 1.13 1.01 Estimated CrCl and GFR - Last 168 Hours 09/05/23 09/06/23 17:11 07:36 Estim Creat Clear Calc 74.0 82.5 Estimated GFR > 60 > 60 Vancomycin Loading Dose: 2000 MG Current Vancomycin Dosing Regimen: 750 MG Q12H Vancomycin Monitoring using AUC goal of 400 - 600 range with trough as surrogate marker: Date and Time for next Vancomycin Level to be drawn: TROUGH 09/07/23 @0700 Pharmacist Comments on Vancomycin Plan: OBESE Vancomycin dosing will take advantage of [employer] as a clinical decision support tool that uses Bayesian modeling to calculate individual patient's pharmacokinetic parameters and forecast the patient's drug concentration time course with the target goal AUC 24 range of 400 - 600 mg/L/hr.
[2023-09-06] MEDS: vancomycin HCL 750 MG in 0.9 % Sodium Chloride 250 ML 265 MG IV ×2 (08:50→19:38)
--- NOTE | 2023-09-06 09:00 | PHA.MEDREC ---
Pharmacy Consult ? Medication Reconciliation Pharmacy has completed the medication reconciliation. Patient states to take Carvedilol 12.5 mg once a day only, despite recent claim showing for twice daily.
[2023-09-06 10:00] VITALS: BP 147/70; PULSE 91
[2023-09-06] MEDS: carvediloL 12.5 MG TABLET PO (10:00)
[2023-09-06] MEDS: dilTIAZem HCL CD 240 MG CAP.ER.DEG PO (10:00)
[2023-09-06 11:22] LABS: Glucose, Whole Blood 182 mg/dL (60-115)
[2023-09-06] MEDS: Insulin Lispro 100 UNIT/ML 3 ML VIAL SUBCUT ×2 (11:50→16:54)
--- NOTE | 2023-09-06 12:26 | MHC.CM.PN ---
PT REPORTS HE LIVES WITH HIS AND IS INDEPENDENT WITH CARE HE HAS NO SERVICES AND USES A [facility]E FOR DME HE SAYS HE HAS A HCP NAMING HIS HIS AGENT - COPY REQUESTED PCP: EMMA THOMAS IMM DELIVERED DCP: HOME ? [facility] TRANSPORT
--- NOTE | 2023-09-06 13:06 | PM.EVENT ---
Event Note Date of Service: 09/06/23 Event Note: Seen and examined this morning Follow-up for right diabetic foot wound Patient is hard of hearing. Denies fever, pain Right diabetic foot wound CT scan with evidence of abscess, not suggestive of osteomyelitis Plan for surgical consultation for ?debridement continue IV abx follow blood cultures Continue local wound care HFpEF Not in acute exacerbation Continue furosemide, metolazone Persistent atrial fibrillation Continue diltiazem, carvedilol Currently holding Coumadin due to possible surgical procedure Follow INR HLD Continue statin BPH Continue tamsulosin Insulin-dependent type 2 diabetes Hold metformin, glipizide Place on sliding scale insulin Diabetic diet Further management as per admission H and P Time Spent With Patient Time: Total time managing care of this patient today ____ minutes.
--- NOTE | 2023-09-06 14:22 | P.CONGS_ITS ---
History of Present Illness Consult details Consult date: 09/06/23 Narrative: Patient is a 9-year-old male with a plethora of comorbidities and intercurrent medical problems. These include diabetes, bilateral Charcot joint feet, and a collection of other chronic medical issues. He has had 3-4 day history of plantar aspect of the foot symptoms and presented to the emergency department for further evaluation. He has superficial wound/diabetic foot ulcer involving the plantar aspect of his right forefoot. Patient states he had a similar issue with the contralateral side. He has been seen by a ?specialist? but has not had any surgical care for the Charcot joint issues as well as. Chart was reviewed and patient evaluated PMFSH Past Medical History Medical History Type 2 diabetes mellitus with unspecified complications Essential hypertension Persistent atrial fibrillation Osteoarthritis of left knee Deafness in left ear JUDIE (obstructive sleep apnea) Osteoarthritis Anemia Venous stasis Hard of hearing Obesity GERD (gastroesophageal reflux disease) BPH (benign prostatic hyperplasia) Diabetes Peripheral edema Atrial fibrillation COPD (chronic obstructive pulmonary disease) Chronic a-fib Family History Family History Father No problems noted. Mother Stroke Surgical History Surgical History Hx of total knee arthroplasty History of amputation of toe Hx of total shoulder replacement Hx of colonoscopy History of bilateral hip replacements Uses cochlear implant Social History Social History Household Members: Spouse Housing: House Do you presently have visiting nurse or other home services: No (for discharge) Alcohol intake: never Patient Tobacco Use Status: Former Tobacco user Smoked in Last 30 Days: No Second Hand Smoke Exposure: No Use of substances other than those prescribed or required for medical reasons: No Have you been hit, kicked, punched, or otherwise hurt by someone within the past year? 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 Meds Allergies Allergy/AdvReac Type Severity Reaction Status Date / Time Penicillins [PENICILLINS] Allergy Intermediate rash- Verified 09/05/23 16:53 STATES BAD RXN CHILD Active Medications: Current Medications Acetaminophen (Acetaminophen 325 Mg Tablet) 650 mg PO Q6H PRN PRN Reason: Pain, Mild (Pain Scale 1-3), fever or headache Benzonatate (Benzonatate 100 Mg Capsule) 100 mg PO TID PRN PRN Reason: Cough Calcium Carbonate (Calcium Carbonate 750 Mg Tab.Chew) 750 mg PO Q4H PRN PRN Reason: Heartburn Carvedilol (Carvedilol 12.5 Mg Tablet) 12.5 mg PO DAILY [facility]; Protocol Last Admin: 09/06/23 10:00 Dose: 12.5 mg Diltiazem HCl (Diltiazem Hcl Cd 240 Mg Cap.Er.Deg) 240 mg PO DAILY [facility]; Protocol Last Admin: 09/06/23 10:00 Dose: 240 mg Furosemide (Furosemide 40 Mg Tablet) 40 mg PO SUTUTHSA@0900 [facility]; Protocol Furosemide (Furosemide 40 Mg Tablet) 80 mg PO MOWEFR@0900 [facility]; Protocol Glucose (Glucose Gel 15 Gm Gel..Gram.) 15 gm PO Q15M PRN; Protocol PRN Reason: per Hypoglycemia Standing Ord. Cefepime HCl 2 gm/ Sodium (Chloride) 50 mls @ 100 mls/hr IV Q8H [facility] Last Infusion: 09/06/23 08:59 Dose: Infused Dextrose (D10) 250 mls @ 750 mls/hr IV Q15M PRN; Protocol PRN Reason: per Hypoglycemia Standing Ord. Vancomycin HCl 750 mg/ Sodium (Chloride) 265 mls @ 265 mls/hr IV Q12H [facility] Last Infusion: 09/06/23 10:07 Dose: Infused Insulin Human Lispro (Insulin Lispro 100 Unit/Ml 3 Ml Vial) 0 unit SUBCUT QIDACHS [facility]; Protocol Last Admin: 09/06/23 11:50 Dose: 2 unit Magnesium Hydroxide (Milk Of Magnesia 30 Ml Oral.Susp) 30 ml PO DAILY PRN PRN Reason: Constipation Melatonin (Melatonin 3 Mg Tablet) 6 mg PO BEDTIME PRN PRN Reason: Insomnia Metolazone (Metolazone 2.5 Mg Tablet) 2.5 mg PO SA@0900 [facility] Ondansetron HCl (Ondansetron Hcl 4 Mg/2 Ml Vial) 4 mg IVPUSH Q8H PRN PRN Reason: Nausea and Vomiting Oxycodone HCl (Oxycodone Hcl Immed Release 5 Mg Tablet) 5 mg PO Q4H PRN PRN Reason: Pain, Severe (Pain Scale 7-10) Last Admin: 09/06/23 10:05 Dose: 5 mg Pharmacy Consult (Consult Rx Vancomycin Dosing) 1 each MISCELLANE DAILY PRN PRN Reason: Consult order Pravastatin Sodium (Pravastatin Sodium 80 Mg Tablet) 80 mg PO BEDTIME [facility] Sodium Chloride (0.9 % Sodium Chloride Flush 3 Ml Syringe) 3 ml IVFLUSH [facility] Last Admin: 09/06/23 07:52 Dose: 3 ml Tamsulosin HCl (Tamsulosin Hcl 0.4 Mg Capsule) 0.4 mg PO DAILY@1700 [facility] Vitamin D (Cholecalciferol (Vitamin D3) 25 Mcg Tablet) 50 mcg PO DAILY [facility] Home Medications ?Medication ?Instructions ?Recorded ?Confirmed ?Last Taken ?Type metformin 500 mg tablet,extended 1,000 mg PO DAILY 12/31/19 09/06/23 09/05/23 History release 24 hr pravastatin 80 mg tablet 80 mg PO BEDTIME 12/31/19 09/06/23 Unknown History tamsulosin 0.4 mg capsule 0.4 mg PO DAILY@1700 12/31/19 09/06/23 Unknown History cholecalciferol (vitamin D3) 25 50 mcg PO DAILY 05/08/20 09/06/23 09/05/23 History mcg (1,000 unit) capsule pjeyvsvxseji-yhjjyfck-vufvcd tablet 1 tab PO DAILY 05/08/20 09/06/23 09/05/23 History oxycodone-acetaminophen 5 mg-325 1 tab PO 5XD PRN Pain 05/08/20 09/06/23 Unknown History mg tablet blood sugar diagnostic #10 ea 06/12/20 08/22/23 Unknown History pen needle, diabetic 31 gauge x #50 ea 06/12/20 08/22/23 Unknown History 05/23 furosemide 40 mg tablet 80 mg PO MOWEFR@0900 01/02/21 09/06/23 09/05/23 History diltiazem HCl 240 mg capsule,24 240 mg PO DAILY 06/26/21 09/06/23 09/05/23 History hr,extended release carvedilol 12.5 mg tablet 12.5 mg PO DAILY 09/06/23 09/06/23 09/05/23 History furosemide 40 mg tablet 40 mg PO SUTUTHSA@0909/06/23 09/06/23 Unknown History glipizide 5 mg tablet, extended 10 mg PO BID 09/06/23 09/06/23 09/05/23 History release 24 hr metformin 500 mg tablet,extended 500 mg PO BEDTIME 09/06/23 09/06/23 Unknown History release 24 hr metolazone 2.5 mg tablet 2.5 mg PO SA@0909/06/23 09/06/23 Unknown History warfarin 2 mg tablet 2 mg PO DAILY@1800 09/06/23 09/06/23 Unknown History warfarin 4 mg tablet 4 mg PO DAILY@1800 09/06/23 09/06/23 Unknown History Physical Exam 2 Vital Signs: Vital Signs: Last Vital Signs Temp 97.3 F 09/06/23 07:12 Pulse 91 09/06/23 10:00 Resp 16 09/06/23 07:12 BP 147/70 H 09/06/23 10:00 Pulse Ox 97 09/06/23 07:12 O2 Del Method Room Air 09/06/23 07:12 BMI result Body Mass Index 38.5 Const: Other: Pleasant moderately corpulent male in no acute distress GI: Other: Abdomen obese, soft, benign Extrem: Other: Lower extremities demonstrate bilateral Charcot joint. Patient has on the symptomatic foot a proximally 3 x 2 cm plantar superficial ulcer. Necrotic skin and nonviable eschar were excised. On gentle palpation no gross evidence of purulence. Secondary to the marked edema of the extremity, no pedal pulses were able to be appreciated. Results Labs 09/06/23 07:36 09/06/23 07:36 Labs: Abnormal lab results 09/05/23 09/05/23 09/06/23 Range/Units 17:11 22:12 07:36 WBC 12.7 H (4.8-10.8) X10*3/uL RBC 4.02 L 3.70 L (4.60-5.80) X10*6/uL Hgb 13.1 L 12.3 L (14.0-18.0) g/dl Hct 37.8 L 35.1 L (42.0-52.0) % MCH 33.2 H (27.0-33.0) pg Immature Gran % (Auto) 0.5 H (0.0-0.4) % Lymph % (Auto) 13.6 L (20-40) % [place] % (Auto) 11.3 H (2-11) % [place] # (Auto) 1.4 H (0.1-1.2) X10*3/uL Abs Immat Gran (auto) 0.07 H (0.00-0.03) X10*3/uL Absolute Neuts (auto) 9.2 H (2.0-8.3) x10*3/uL ESR 43 H (0-15) MM/HR PT 37.0 H D 37.0 H (11.1-13.3) SEC INR 3.0 H D 3.0 H (0.9-1.1) Carbon Dioxide 33 H 32 H (22-29) mmol/L BUN 21 H 18 H (9-16) mg/dL POC Glucose (60-115) mg/dL Random Glucose 124 H (60-115) mg/dL C-Reactive Protein 5.40 H (< or = 0.50) mg/dL 09/06/23 Range/Units 11:16 WBC (4.8-10.8) X10*3/uL RBC (4.60-5.80) X10*6/uL Hgb (14.0-18.0) g/dl Hct (42.0-52.0) % MCH (27.0-33.0) pg Immature Gran % (Auto) (0.0-0.4) % Lymph % (Auto) (20-40) % [place] % (Auto) (2-11) % [place] # (Auto) (0.1-1.2) X10*3/uL Abs Immat Gran (auto) (0.00-0.03) X10*3/uL Absolute Neuts (auto) (2.0-8.3) x10*3/uL ESR (0-15) MM/HR PT (11.1-13.3) SEC INR (0.9-1.1) Carbon Dioxide (22-29) mmol/L BUN (9-16) mg/dL POC Glucose 182 H (60-115) mg/dL Random Glucose (60-115) mg/dL C-Reactive Protein (< or = 0.50) mg/dL Short CBC 09/05/23 09/06/23 Range/Units 17:11 07:36 WBC 12.7 H 10.1 (4.8-10.8) X10*3/uL Hgb 13.1 L 12.3 L (14.0-18.0) g/dl Hct 37.8 L 35.1 L (42.0-52.0) % Plt Count 245 D 221 (160-400) X10*3/uL BMP 09/05/23 09/06/23 17:11 07:36 Sodium 142 143 Potassium 4.2 4.2 Chloride 100 103 Carbon Dioxide 33 H 32 H BUN 21 H 18 H Creatinine 1.13 1.01 Calcium 9.7 D 9.0 D Liver Function 09/05/23 Range/Units 17:11 Total Bilirubin 0.5 (0.0-1.0) mg/dL AST 25 (5-37) U/L ALT 14 (0-40) U/L Alkaline Phosphatase 68 (39-117) U/L Albumin 3.9 (3.5-5.0) g/dL All other labs normal. Assessment and Plan (1) Cellulitis: Qualifiers: Laterality: right Site of cellulitis: extremity Site of cellulitis of extremity: lower extremity Qualified Code(s): L03.115 - Cellulitis of right lower limb Status: Acute (2) Diabetic foot ulcer: Qualifiers: Diabetes mellitus type: type 2 Diabetic foot ulcer location: midfoot L aterality: right Non-pressure ulcer stage: limited to breakdown of skin Q ualified Code(s): E11.621 - Type 2 diabetes mellitus with foot ulcer; L97.411 - Non-pressure chronic ulcer of right heel and midfoot limited to breakdown of skin Status: Acute Plan Patient is undergoing local wound care as well as IV antibiotics. Would also recommend elevation of the extremity as much as possible. Also a patient is unaware if he has had a vascular workup and this should be considered as well. At present no other acute surgical issues. Procedures Date of Service Date of Service: 09/06/23
[2023-09-06 15:25] VITALS: BP 126/77; PULSE 59; RESP 18; TEMP 36.2; O2SAT 97
[2023-09-06 16:42] LABS: Glucose, Whole Blood 193 mg/dL (60-115)
[2023-09-06] MEDS: Tamsulosin HCL 0.4 MG CAPSULE PO (16:54)
[2023-09-06 19:15] VITALS: BP 133/64; PULSE 58; RESP 18; TEMP 36.7; O2SAT 97
[2023-09-06] MEDS: Pravastatin Sodium 80 MG TABLET PO (19:38)
[2023-09-06 20:29] LABS: Glucose, Whole Blood 138 mg/dL (60-115)
[2023-09-07] MEDS: oxyCODONE HCl Immed Release 5 MG TABLET PO ×5 (00:54→19:30)
[2023-09-07] MEDS: cefEPime HCl 2 GM in 0.9 % Sodium Chloride 50 ML IV ×4 (00:55→23:52)
[2023-09-07 03:14] VITALS: BP 118/66; PULSE 74; RESP 18; TEMP 36.2; O2SAT 97
[2023-09-07 07:04] LABS: INTERNATIONAL NORM RATIO 2.3 (0.9-1.1); Prothrombin Time 27.9 SEC (11.1-13.3)
[2023-09-07 07:07] LABS: Creatinine Clr Calc Pharmacy 79.4; Estimated Glomerular Filt Rate > 60
[2023-09-07 07:15] LABS: Vancomycin Trough 14.3 mcg/mL (10.0-20.0)
[2023-09-07 07:16] VITALS: BP 135/60; PULSE 66; RESP 18; TEMP 36.3; O2SAT 97
--- NOTE | 2023-09-07 07:24 | HE.PHANOTE ---
RE: VANCO DOSING Random came back as 14.3. Continue with dose of 750 mg q12h, next random is scheduled for 09/08/23@0700.
[2023-09-07 07:29] LABS: Glucose, Whole Blood 141 mg/dL (60-115)
[2023-09-07] MEDS: Cholecalciferol (Vitamin D3) 25 MCG TABLET 50 MCG PO (07:37)
[2023-09-07] MEDS: dilTIAZem HCL CD 240 MG CAP.ER.DEG PO (07:38)
[2023-09-07] MEDS: carvediloL 12.5 MG TABLET PO (07:38)
[2023-09-07] MEDS: 0.9 % Sodium Chloride Flush 3 ML SYRINGE IVFLUSH ×3 (07:38→20:34)
--- NOTE | 2023-09-07 08:12 | HO.PM.IMPN ---
Subjective Subjective Date of Service: 09/07/23 Interval History: f/u diabetic foot ulcer, No osteomylitis (OM) No pain, no fever Physical Exam Vital Signs: Vital Signs: Last Vital Signs Temp 97.3 F 09/07/23 07:16 Pulse 66 09/07/23 07:16 Resp 18 09/07/23 07:16 BP 135/60 09/07/23 07:16 Pulse Ox 97 09/07/23 07:16 O2 Del Method Room Air 09/07/23 07:16 BMI result Body Mass Index 38.5 Const: Other: General: AO X 3, no acute distress Resp: CTA bilateral CVS: S1,S2,RRR GI: +BS, NT, no distention Skin: right foot Neuro: motor grossly intact Psych: appropriate affect Objective Data Active Medications Acetaminophen (Acetaminophen 325 Mg Tablet) 650 mg PO Q6H PRN PRN Reason: Pain, Mild (Pain Scale 1-3), fever or headache Benzonatate (Benzonatate 100 Mg Capsule) 100 mg PO TID PRN PRN Reason: Cough Calcium Carbonate (Calcium Carbonate 750 Mg Tab.Chew) 750 mg PO Q4H PRN PRN Reason: Heartburn Carvedilol (Carvedilol 12.5 Mg Tablet) 12.5 mg PO DAILY [facility]; Protocol Last Admin: 09/07/23 07:38 Dose: 12.5 mg Documented By: ARLENE Diltiazem HCl (Diltiazem Hcl Cd 240 Mg Cap.Er.Deg) 240 mg PO DAILY [facility]; Protocol Last Admin: 09/07/23 07:38 Dose: 240 mg Documented By: ARLENE Furosemide (Furosemide 40 Mg Tablet) 40 mg PO SUTUTHSA@0900 [facility]; Protocol Last Admin: 09/07/23 07:41 Dose: Not Given Documented By: ARLENE Non-Admin Reason: Patient Refused Furosemide (Furosemide 40 Mg Tablet) 80 mg PO MOWEFR@0900 [facility]; Protocol Glucose (Glucose Gel 15 Gm Gel..Gram.) 15 gm PO Q15M PRN; Protocol PRN Reason: per Hypoglycemia Standing Ord. Cefepime HCl 2 gm/ Sodium (Chloride) 50 mls @ 100 mls/hr IV Q8H [facility] Last Admin: 09/07/23 07:45 Dose: 100 mls/hr Documented By: ARLENE Dextrose (D10) 250 mls @ 750 mls/hr IV Q15M PRN; Protocol PRN Reason: per Hypoglycemia Standing Ord. Vancomycin HCl 750 mg/ Sodium (Chloride) 265 mls @ 265 mls/hr IV Q12H [facility] Last Infusion: 09/06/23 21:11 Dose: Infused Documented By: JOAQUÍN Insulin Human Lispro (Insulin Lispro 100 Unit/Ml 3 Ml Vial) 0 unit SUBCUT QIDACHS [facility]; Protocol Last Admin: 09/07/23 07:30 Dose: Not Given Documented By: ARLENE Non-Admin Reason: No Insulin Coverage Magnesium Hydroxide (Milk Of Magnesia 30 Ml Oral.Susp) 30 ml PO DAILY PRN PRN Reason: Constipation Melatonin (Melatonin 3 Mg Tablet) 6 mg PO BEDTIME PRN PRN Reason: Insomnia Metformin HCl (Metformin Hcl Er 500 Mg Tab.Er.24h) 1,000 mg PO DAILY [facility] Metformin HCl (Metformin Hcl Er 500 Mg Tab.Er.24h) 500 mg PO BEDTIME [facility] Metolazone (Metolazone 2.5 Mg Tablet) 2.5 mg PO SA@0900 [facility] Ondansetron HCl (Ondansetron Hcl 4 Mg/2 Ml Vial) 4 mg IVPUSH Q8H PRN PRN Reason: Nausea and Vomiting Oxycodone HCl (Oxycodone Hcl Immed Release 5 Mg Tablet) 5 mg PO Q4H PRN PRN Reason: Pain, Severe (Pain Scale 7-10) Last Admin: 09/07/23 06:57 Dose: 5 mg Documented By: DOMITILA Pharmacy Consult (Consult Rx Vancomycin Dosing) 1 each MISCELLANE DAILY PRN PRN Reason: Consult order Pravastatin Sodium (Pravastatin Sodium 80 Mg Tablet) 80 mg PO BEDTIME [facility] Last Admin: 09/06/23 19:38 Dose: 80 mg Documented By: JOAQUÍN Sodium Chloride (0.9 % Sodium Chloride Flush 3 Ml Syringe) 3 ml IVFLUSH QSHIFT [facility] Last Admin: 09/07/23 07:38 Dose: 3 ml Documented By: ARLENE Tamsulosin HCl (Tamsulosin Hcl 0.4 Mg Capsule) 0.4 mg PO DAILY@1700 [facility] Last Admin: 09/06/23 16:54 Dose: 0.4 mg Documented By: ARLENE Vitamin D (Cholecalciferol (Vitamin D3) 25 Mcg Tablet) 50 mcg PO DAILY [facility] Last Admin: 09/07/23 07:37 Dose: 50 mcg Documented By: ARLENE Warfarin Sodium (Warfarin Sodium 2 Mg Tablet) 2 mg PO DAILY@1800 [facility] Warfarin Sodium (Warfarin Sodium 4 Mg Tablet) 4 mg PO DAILY@1800 [facility] Labs 09/06/23 07:36 09/07/23 06:45 Labs: Laboratory Results - last 24 hr 09/06/23 09/06/23 09/06/23 11:16 16:32 20:16 PT INR Estim Creat Clear Calc Estimated GFR POC Glucose 182 H 193 H 138 H Vancomycin Trough 09/07/23 09/07/23 06:45 07:14 PT 27.9 H D INR 2.3 H Estim Creat Clear Calc 79.4 Estimated GFR > 60 POC Glucose 141 H Vancomycin Trough 14.3 Microbiology Microbiology Results: Microbiology 09/05/23 20:10 Blood Culture - Preliminary Blood - Venous No growth after 24 hours. 09/05/23 19:45 Blood Culture - Preliminary Blood - Venous No growth after 24 hours. Assessment and Plan (1) Cellulitis: Status: Acute (2) Diabetic foot ulcer: Status: Acute Plan 73/with DM, HLD, CHF, AFIB, Right diabetic foot wound with open abscess, No osteo on CT Surgery recommend wound care and Abx, continue Cefepime and Vanco ID consult, follow cultures HFpEF Not in acute exacerbation Continue furosemide, metolazone Persistent atrial fibrillation Continue diltiazem, carvedilol continue coumadin with INR goal of 2-3 HLD Continue statin BPH Continue tamsulosin Insulin-dependent type 2 diabetes restart metformin, hold glipizide SSI, Diabetic diet DVT prophylaxis: coumadin full code need for inp: infected diabetic foot ulcer that need iv Abx Quality Stroke Does the patient have a stroke diagnosis?: No VTE Prior VTE?: No VTE Risk Level:: Medical - moderate - high VTE Device Contraindication: Treatment Not Indicated VTE Drug Contraindication: N/A - Med Ordered
[2023-09-07] MEDS: metFORMIN HCl ER 500 MG TAB.ER.24H 1000 MG PO (08:23)
[2023-09-07] MEDS: vancomycin HCL 750 MG in 0.9 % Sodium Chloride 250 ML 265 MG IV ×2 (08:24→20:34)
[2023-09-07 11:15] LABS: Glucose, Whole Blood 207 mg/dL (60-115)
[2023-09-07] MEDS: Insulin Lispro 100 UNIT/ML 3 ML VIAL SUBCUT (11:16)
--- NOTE | 2023-09-07 13:14 | PM.PNGS ---
Subjective Subjective Date of Service: 09/07/23 Interval history: No new issues or complaints regarding right heel. Patient undergoing dressing changes by nursing staff. Physical Exam Vital Signs: Vital Signs: Last Vital Signs Temp 97.3 F 09/07/23 07:16 Pulse 66 09/07/23 07:16 Resp 18 09/07/23 07:16 BP 135/60 09/07/23 07:16 Pulse Ox 97 09/07/23 07:16 O2 Del Method Room Air 09/07/23 07:16 BMI result Body Mass Index 38.5 Extrem: Other: Dressing clean dry and intact. Objective Data Active Medications Acetaminophen (Acetaminophen 325 Mg Tablet) 650 mg PO Q6H PRN PRN Reason: Pain, Mild (Pain Scale 1-3), fever or headache Benzonatate (Benzonatate 100 Mg Capsule) 100 mg PO TID PRN PRN Reason: Cough Calcium Carbonate (Calcium Carbonate 750 Mg Tab.Chew) 750 mg PO Q4H PRN PRN Reason: Heartburn Carvedilol (Carvedilol 12.5 Mg Tablet) 12.5 mg PO DAILY [facility]; Protocol Last Admin: 09/07/23 07:38 Dose: 12.5 mg Documented By: ARLENE Diltiazem HCl (Diltiazem Hcl Cd 240 Mg Cap.Er.Deg) 240 mg PO DAILY [facility]; Protocol Last Admin: 09/07/23 07:38 Dose: 240 mg Documented By: ARLENE Furosemide (Furosemide 40 Mg Tablet) 40 mg PO SUTUTHSA@0900 [facility]; Protocol Last Admin: 09/07/23 07:41 Dose: Not Given Documented By: ARLENE Non-Admin Reason: Patient Refused Furosemide (Furosemide 40 Mg Tablet) 80 mg PO MOWEFR@0900 [facility]; Protocol Glucose (Glucose Gel 15 Gm Gel..Gram.) 15 gm PO Q15M PRN; Protocol PRN Reason: per Hypoglycemia Standing Ord. Cefepime HCl 2 gm/ Sodium (Chloride) 50 mls @ 100 mls/hr IV Q8H [facility] Last Infusion: 09/07/23 08:24 Dose: Infused Documented By: ARLENE Dextrose (D10) 250 mls @ 750 mls/hr IV Q15M PRN; Protocol PRN Reason: per Hypoglycemia Standing Ord. Vancomycin HCl 750 mg/ Sodium (Chloride) 265 mls @ 265 mls/hr IV Q12H [facility] Last Infusion: 09/07/23 09:41 Dose: Infused Documented By: ARLENE Insulin Human Lispro (Insulin Lispro 100 Unit/Ml 3 Ml Vial) 0 unit SUBCUT QIDACHS [facility]; Protocol Last Admin: 09/07/23 11:16 Dose: 4 unit Documented By: ARLENE Magnesium Hydroxide (Milk Of Magnesia 30 Ml Oral.Susp) 30 ml PO DAILY PRN PRN Reason: Constipation Melatonin (Melatonin 3 Mg Tablet) 6 mg PO BEDTIME PRN PRN Reason: Insomnia Metformin HCl (Metformin Hcl Er 500 Mg Tab.Er.24h) 1,000 mg PO DAILY [facility] Last Admin: 09/07/23 08:23 Dose: 1,000 mg Documented By: ARLENE Metformin HCl (Metformin Hcl Er 500 Mg Tab.Er.24h) 500 mg PO BEDTIME [facility] Metolazone (Metolazone 2.5 Mg Tablet) 2.5 mg PO SA@0900 [facility] Ondansetron HCl (Ondansetron Hcl 4 Mg/2 Ml Vial) 4 mg IVPUSH Q8H PRN PRN Reason: Nausea and Vomiting Oxycodone HCl (Oxycodone Hcl Immed Release 5 Mg Tablet) 5 mg PO Q4H PRN PRN Reason: Pain, Severe (Pain Scale 7-10) Last Admin: 09/07/23 11:15 Dose: 5 mg Documented By: ARLENE Pharmacy Consult (Consult Rx Vancomycin Dosing) 1 each MISCELLANE DAILY PRN PRN Reason: Consult order Pravastatin Sodium (Pravastatin Sodium 80 Mg Tablet) 80 mg PO BEDTIME [facility] Last Admin: 09/06/23 19:38 Dose: 80 mg Documented By: CASTILM Sodium Chloride (0.9 % Sodium Chloride Flush 3 Ml Syringe) 3 ml IVFLUSH QSHIFT [facility] Last Admin: 09/07/23 07:38 Dose: 3 ml Documented By: ARLENE Tamsulosin HCl (Tamsulosin Hcl 0.4 Mg Capsule) 0.4 mg PO DAILY@1700 [facility] Last Admin: 09/06/23 16:54 Dose: 0.4 mg Documented By: ARLENE Vitamin D (Cholecalciferol (Vitamin D3) 25 Mcg Tablet) 50 mcg PO DAILY [facility] Last Admin: 09/07/23 07:37 Dose: 50 mcg Documented By: ARLENE Warfarin Sodium (Warfarin Sodium 2 Mg Tablet) 2 mg PO DAILY@1800 [facility] Warfarin Sodium (Warfarin Sodium 4 Mg Tablet) 4 mg PO DAILY@1800 [facility] Labs 09/06/23 07:36 09/07/23 06:45 Labs: Laboratory Results - last 24 hr 09/06/23 09/06/23 09/07/23 16:32 20:16 06:45 PT 27.9 H D INR 2.3 H Estim Creat Clear Calc 79.4 Estimated GFR > 60 POC Glucose 193 H 138 H Vancomycin Trough 14.3 09/07/23 09/07/23 07:14 11:12 PT INR Estim Creat Clear Calc Estimated GFR POC Glucose 141 H 207 H Vancomycin Trough Microbiology Microbiology Results: Microbiology 09/05/23 20:10 Blood Culture - Preliminary Blood - Venous No growth after 24 hours. 09/05/23 19:45 Blood Culture - Preliminary Blood - Venous No growth after 24 hours. Procedures Date of Service Date of Service: 09/07/23 Progress Note: A&P Assessment and plan (1) Cellulitis: Status: Acute (2) Diabetic foot ulcer: Status: Acute Plan Continue current therapy, wound care, elevation, IV antibiotics. Again, consider vascular consult as not been done in the past. Patient should eventually follow up with his podiatric physician Time Spent With Patient Time: Total time managing care of this patient today ____ minutes. Quality Stroke Does the patient have a stroke diagnosis?: No VTE Prior VTE?: No VTE Risk Level:: Medical - moderate - high VTE Device Contraindication: Treatment Not Indicated VTE Drug Contraindication: N/A - Med Ordered
[2023-09-07 15:00] VITALS: BP 114/59; PULSE 52; RESP 18; TEMP 36.3; O2SAT 95
[2023-09-07 15:07] VITALS: BP 140/90; PULSE 79; RESP 16; TEMP 36.3; O2SAT 97
[2023-09-07 15:18] LABS: Glucose, Whole Blood 134 mg/dL (60-115)
[2023-09-07] MEDS: Tamsulosin HCL 0.4 MG CAPSULE PO (17:13)
[2023-09-07] MEDS: Warfarin Sodium 2 MG TABLET PO (17:14)
[2023-09-07] MEDS: Warfarin Sodium 4 MG TABLET PO (17:14)
[2023-09-07 19:28] LABS: Glucose, Whole Blood 133 mg/dL (60-115)
[2023-09-07 19:34] VITALS: BP 136/67; PULSE 66; RESP 18; TEMP 36.2; O2SAT 99
[2023-09-07] MEDS: metFORMIN HCl ER 500 MG TAB.ER.24H PO (20:34)
[2023-09-07] MEDS: Pravastatin Sodium 80 MG TABLET PO (20:34)
[2023-09-08] MEDS: oxyCODONE HCl Immed Release 5 MG TABLET PO ×3 (01:08→10:18)
[2023-09-08 03:40] VITALS: BP 121/61; PULSE 56; RESP 18; TEMP 36; O2SAT 99
[2023-09-08 06:50] LABS: Prothrombin Time 24.2 SEC (11.1-13.3)
[2023-09-08 06:54] VITALS: BP 149/70; PULSE 63; RESP 17; TEMP 36.7; O2SAT 98
[2023-09-08 06:58] LABS: Creatinine Clr Calc Pharmacy 72.5; Estimated Glomerular Filt Rate > 60
[2023-09-08 07:23] LABS: Glucose, Whole Blood 172 mg/dL (60-115)
[2023-09-08] MEDS: carvediloL 12.5 MG TABLET PO (07:39)
[2023-09-08] MEDS: Cholecalciferol (Vitamin D3) 25 MCG TABLET 50 MCG PO (07:40)
[2023-09-08] MEDS: metFORMIN HCl ER 500 MG TAB.ER.24H 1000 MG PO (07:40)
[2023-09-08] MEDS: dilTIAZem HCL CD 240 MG CAP.ER.DEG PO (07:40)
[2023-09-08] MEDS: 0.9 % Sodium Chloride Flush 3 ML SYRINGE IVFLUSH (07:41)
[2023-09-08] MEDS: cefEPime HCl 2 GM in 0.9 % Sodium Chloride 50 ML IV (07:41)
[2023-09-08] MEDS: Insulin Lispro 100 UNIT/ML 3 ML VIAL SUBCUT ×2 (07:42→11:32)
[2023-09-08 07:55] LABS: Vancomycin Random 15.1 mcg/mL (15-20)
[2023-09-08 08:00] LABS: MANUAL DIFF FLAG NO
[2023-09-08 08:09] LABS: Basophils Percent Auto 0.5 % (0-2); Eosinophils Absolute Auto 0.4 X10*3/uL (0.0-0.4); Eosinophils Percent Auto 4.9 % (0-4); Hematocrit 35.7 % (42.0-52.0); Hemoglobin 11.9 g/dl (14.0-18.0); Imm Gran Abs Auto 0.04 X10*3/uL (0.00-0.03); Imm Gran Pct Auto 0.5 % (0.0-0.4); Lymphocytes Absolute Auto 1.7 X10*3/uL (1.2-4.9); Lymphocytes Percent Auto 20.8 % (20-40); Mean Corpuscular HGB Conc 33.3 g/dl (31.0-36.0); Mean Corpuscular Hemoglobin 32.8 pg (27.0-33.0); Mean Corpuscular Volume 98.3 fL (80.0-98.0); Mean Platelet Volume 10.4 fL (9.4-12.4); Monocytes Absolute Auto 0.9 X10*3/uL (0.1-1.2); Monocytes Percent Auto 11.3 % (2-11); Platelet Count 232 X10*3/uL (160-400); Red Blood Count 3.63 X10*6/uL (4.60-5.80); Red Cell Distribution Width 12.8 % (11.0-16.0); White Blood Count 8.1 X10*3/uL (4.8-10.8)
[2023-09-08] MEDS: vancomycin HCL 750 MG in 0.9 % Sodium Chloride 250 ML 265 MG IV (09:54)
--- NOTE | 2023-09-08 10:49 | PM.CNGS ---
History of Present Illness Consult details Consult date: 09/08/23 Reason for consult: wound care (right plantar foot ulceration) Narrative: Very pleasant 73-year-old gentleman who is been a longstanding diabetic for nearly 15 years presented to the hospital with a nonhealing right plantar foot ulceration. It had been progressing for some time and he had not recognized it until his pointed out. After showering noticed that a blister had open and fluid came out with on odor. He was brought into the emergency room. He does have a past medical history of AFib diabetes hypertension hyperlipidemia. He does have a known history of his Charcot foot. He now presents to us for vascular evaluation. Diabetes in reasonable control with last reported hemoglobin A1c of 6.8 Review of Systems Review of Systems: Yes all other systems are reviewed and are negative Constitutional: Constitutional: Reports no additional constitutional complaints ENT: Reports Normal hearing present Cardiovascular: Cardiovascular: Denies chest pain, Denies chest pain at rest, Denies chest pain with activity and Denies pedal edema Respiratory: Respiratory: Denies cough Gastrointestinal: Gastrointestinal: Denies abdominal pain Musculoskeletal: Musculoskeletal: Denies abnormal gait, Denies muscle cramps and Denies radiating pain into limb Integumentary/Breasts: Skin/Breast: Denies skin ulcer and Denies wounds Neurologic: Reports Normal hearing present and Denies abnormal gait Psychiatric: Psychiatric: Reports no additional psychiatric complaints [facility] Past Medical History Medical History Type 2 diabetes mellitus with unspecified complications Essential hypertension Persistent atrial fibrillation Osteoarthritis of left knee Deafness in left ear JUDIE (obstructive sleep apnea) Osteoarthritis Anemia Venous stasis Hard of hearing Obesity GERD (gastroesophageal reflux disease) BPH (benign prostatic hyperplasia) Diabetes Peripheral edema Atrial fibrillation COPD (chronic obstructive pulmonary disease) Chronic a-fib Family History Family History Father No problems noted. Mother Stroke Surgical History Surgical History Hx of total knee arthroplasty History of amputation of toe Hx of total shoulder replacement Hx of colonoscopy History of bilateral hip replacements Uses cochlear implant Social History Social History Household Members: Spouse Housing: House Do you presently have visiting nurse or other home services: No (for discharge) Alcohol intake: never Patient Tobacco Use Status: Former Tobacco user Smoked in Last 30 Days: No Second Hand Smoke Exposure: No Use of substances other than those prescribed or required for medical reasons: No Currently Displaying Signs/Symptoms of Drug Intoxication Withdrawal: No Have you been hit, kicked, punched, or otherwise hurt by someone within the past year? 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 Meds Allergies Allergy/AdvReac Type Severity Reaction Status Date / Time Penicillins [PENICILLINS] Allergy Intermediate rash- Verified 09/05/23 16:53 STATES BAD RXN CHILD Active Medications: Current Medications Acetaminophen (Acetaminophen 325 Mg Tablet) 650 mg PO Q6H PRN PRN Reason: Pain, Mild (Pain Scale 1-3), fever or headache Benzonatate (Benzonatate 100 Mg Capsule) 100 mg PO TID PRN PRN Reason: Cough Calcium Carbonate (Calcium Carbonate 750 Mg Tab.Chew) 750 mg PO Q4H PRN PRN Reason: Heartburn Carvedilol (Carvedilol 12.5 Mg Tablet) 12.5 mg PO DAILY [facility]; Protocol Last Admin: 09/08/23 07:39 Dose: 12.5 mg Diltiazem HCl (Diltiazem Hcl Cd 240 Mg Cap.Er.Deg) 240 mg PO DAILY [facility]; Protocol Last Admin: 09/08/23 07:40 Dose: 240 mg Furosemide (Furosemide 40 Mg Tablet) 40 mg PO SUTUTHSA@0900 [facility]; Protocol Last Admin: 09/07/23 07:41 Dose: Not Given Furosemide (Furosemide 40 Mg Tablet) 80 mg PO MOWEFR@0900 [facility]; Protocol Last Admin: 09/08/23 07:40 Dose: Not Given Glucose (Glucose Gel 15 Gm Gel..Gram.) 15 gm PO Q15M PRN; Protocol PRN Reason: per Hypoglycemia Standing Ord. Cefepime HCl 2 gm/ Sodium (Chloride) 50 mls @ 100 mls/hr IV Q8H [facility] Last Infusion: 09/08/23 08:49 Dose: Infused Dextrose (D10) 250 mls @ 750 mls/hr IV Q15M PRN; Protocol PRN Reason: per Hypoglycemia Standing Ord. Vancomycin HCl 750 mg/ Sodium (Chloride) 265 mls @ 265 mls/hr IV Q12H [facility] Last Admin: 09/08/23 09:54 Dose: 265 mls/hr Insulin Human Lispro (Insulin Lispro 100 Unit/Ml 3 Ml Vial) 0 unit SUBCUT QIDACHS [facility]; Protocol Last Admin: 09/08/23 07:42 Dose: 2 unit Magnesium Hydroxide (Milk Of Magnesia 30 Ml Oral.Susp) 30 ml PO DAILY PRN PRN Reason: Constipation Melatonin (Melatonin 3 Mg Tablet) 6 mg PO BEDTIME PRN PRN Reason: Insomnia Metformin HCl (Metformin Hcl Er 500 Mg Tab.Er.24h) 1,000 mg PO DAILY [facility] Last Admin: 09/08/23 07:40 Dose: 1,000 mg Metformin HCl (Metformin Hcl Er 500 Mg Tab.Er.24h) 500 mg PO BEDTIME [facility] Last Admin: 09/07/23 20:34 Dose: 500 mg Metolazone (Metolazone 2.5 Mg Tablet) 2.5 mg PO SA@0900 [facility] Ondansetron HCl (Ondansetron Hcl 4 Mg/2 Ml Vial) 4 mg IVPUSH Q8H PRN PRN Reason: Nausea and Vomiting Oxycodone HCl (Oxycodone Hcl Immed Release 5 Mg Tablet) 5 mg PO Q4H PRN PRN Reason: Pain, Severe (Pain Scale 7-10) Last Admin: 09/08/23 10:18 Dose: 5 mg Pharmacy Consult (Consult Rx Vancomycin Dosing) 1 each MISCELLANE DAILY PRN PRN Reason: Consult order Pravastatin Sodium (Pravastatin Sodium 80 Mg Tablet) 80 mg PO BEDTIME [facility] Last Admin: 09/07/23 20:34 Dose: 80 mg Sodium Chloride (0.9 % Sodium Chloride Flush 3 Ml Syringe) 3 ml IVFLUSH QSHIFT [facility] Last Admin: 09/08/23 07:41 Dose: 3 ml Tamsulosin HCl (Tamsulosin Hcl 0.4 Mg Capsule) 0.4 mg PO DAILY@1700 [facility] Last Admin: 09/07/23 17:13 Dose: 0.4 mg Vitamin D (Cholecalciferol (Vitamin D3) 25 Mcg Tablet) 50 mcg PO DAILY [facility] Last Admin: 09/08/23 07:40 Dose: 50 mcg Warfarin Sodium (Warfarin Sodium 2 Mg Tablet) 2 mg PO DAILY@1800 [facility] Last Admin: 09/07/23 17:14 Dose: 2 mg Warfarin Sodium (Warfarin Sodium 4 Mg Tablet) 4 mg PO DAILY@1800 [facility] Last Admin: 09/07/23 17:14 Dose: 4 mg Home Medications ?Medication ?Instructions ?Recorded ?Confirmed ?Last Taken ?Type metformin 500 mg tablet,extended 1,000 mg PO DAILY 12/31/19 09/06/23 09/05/23 History release 24 hr pravastatin 80 mg tablet 80 mg PO BEDTIME 12/31/19 09/06/23 Unknown History tamsulosin 0.4 mg capsule 0.4 mg PO DAILY@1700 12/31/19 09/06/23 Unknown History cholecalciferol (vitamin D3) 25 50 mcg PO DAILY 05/08/20 09/06/23 09/05/23 History mcg (1,000 unit) capsule dgnnnmfjkref-wenaibwy-pnvpeh tablet 1 tab PO DAILY 05/08/20 09/06/23 09/05/23 History oxycodone-acetaminophen 5 mg-325 1 tab PO 5XD PRN Pain 05/08/20 09/06/23 Unknown History mg tablet blood sugar diagnostic #10 ea 06/12/20 08/22/23 Unknown History pen needle, diabetic 31 gauge x #50 ea 06/12/20 08/22/23 Unknown History 3/16 furosemide 40 mg tablet 80 mg PO MOWEFR@0900 01/02/21 09/06/23 09/05/23 History diltiazem HCl 240 mg capsule,24 240 mg PO DAILY 06/26/21 09/06/23 09/05/23 History hr,extended release carvedilol 12.5 mg tablet 12.5 mg PO DAILY 09/06/23 09/06/23 09/05/23 History furosemide 40 mg tablet 40 mg PO SUTUTHSA@0900 09/06/23 09/06/23 Unknown History glipizide 5 mg tablet, extended 10 mg PO BID 09/06/23 09/06/23 09/05/23 History release 24 hr metformin 500 mg tablet,extended 500 mg PO BEDTIME 09/06/23 09/06/23 Unknown History release 24 hr metolazone 2.5 mg tablet 2.5 mg PO SA@0900 09/06/23 09/06/23 Unknown History warfarin 2 mg tablet 2 mg PO DAILY@1800 09/06/23 09/06/23 Unknown History warfarin 4 mg tablet 4 mg PO DAILY@1800 09/06/23 09/06/23 Unknown History Physical Exam Vital Signs: Vital Signs: Last Vital Signs Temp 98.1 F 09/08/23 06:54 Pulse 63 09/08/23 06:54 Resp 17 09/08/23 06:54 BP 149/70 H 09/08/23 06:54 Pulse Ox 98 09/08/23 06:54 O2 Del Method Room Air 09/08/23 06:54 BMI result Body Mass Index 38.5 Const: General: cooperative, healthy appearing and comfortable Orientation/consciousness: oriented to person, oriented to place and oriented to time HEENT: Head: Yes normal to inspection Neck: Neck: Yes normal visual inspection Carotids: no bruits Chest: Chest palpation & inspection: normal inspection of the chest Resp: Effort & Inspection: normal respiratory effort and able to speak in complete sentences Auscultation: clear to auscultation bilaterally, no crackles, no rales, no rhonchi and no wheezes Cardio: Other: Right leg palpable posterior tibial pulse Rate: regular rate Rhythm: regular rhythm Heart sounds: S1 normal heart sound present and S2 normal heart sound present Bruits: no carotid bruits Peripheral pulses: Peripheral pulses 2+ throughout GI: Inspection: Yes normal to inspection Skin: Other: Wound on plantar surface right foot relatively clean base approximately 2 cm in diameter. Wounds: wounds noted Hair: normal Neuro: General: oriented to person, oriented to place and oriented to time Cranial nerves: Yes CN's II-XII intact bilaterally and Yes Normal hearing present Cognition (Neuro): normal cognition Motor exam (neuro): 5/5 motor strength present throughout Extrem: Other: venous exam: +1 edema General: No clubbing, No cyanosis and Yes edema Psych: Appearance: grossly normal Mental Status: mental status grossly normal Speech and movement: Normal speech and movement present Results Labs 09/08/23 05:30 09/08/23 05:30 Labs: Abnormal lab results 09/07/23 09/07/23 09/07/23 Range/Units 11:12 15:00 19:20 RBC (4.60-5.80) X10*6/uL Hgb (14.0-18.0) g/dl Hct (42.0-52.0) % MCV (80.0-98.0) fL Immature Gran % (Auto) (0.0-0.4) % [place] % (Auto) (2-11) % Eos % (Auto) (0-4) % Abs Immat Gran (auto) (0.00-0.03) X10*3/uL PT (11.1-13.3) SEC INR (0.9-1.1) POC Glucose 207 H 134 H 133 H (60-115) mg/dL 09/08/23 09/08/23 Range/Units 05:30 07:10 RBC 3.63 L (4.60-5.80) X10*6/uL Hgb 11.9 L (14.0-18.0) g/dl Hct 35.7 L (42.0-52.0) % MCV 98.3 H (80.0-98.0) fL Immature Gran % (Auto) 0.5 H (0.0-0.4) % [place] % (Auto) 11.3 H (2-11) % Eos % (Auto) 4.9 H (0-4) % Abs Immat Gran (auto) 0.04 H (0.00-0.03) X10*3/uL PT 24.2 H (11.1-13.3) SEC INR 2.0 H (0.9-1.1) POC Glucose 172 H (60-115) mg/dL Short CBC 09/08/23 Range/Units 05:30 WBC 8.1 (4.8-10.8) X10*3/uL Hgb 11.9 L (14.0-18.0) g/dl Hct 35.7 L (42.0-52.0) % Plt Count 232 (160-400) X10*3/uL BMP 09/08/23 05:30 Creatinine 1.15 All other labs normal. Assessment and Plan (1) Diabetic foot ulcer: Qualifiers: Diabetes mellitus type: type 2 Diabetic foot ulcer location: midfoot Laterality: right Non-pressure ulcer stage: limited to breakdown of skin Qualified Code(s): E11.621 - Type 2 diabetes mellitus with foot ulcer; L97.411 - Non-pressure chronic ulcer of right heel and midfoot limited to breakdown of skin Status: Acute Plan In short the patient has a nonhealing diabetic foot ulcer. This will be a bit complicated as he does have longstanding history of Charcot foot as well. We did discuss the importance of offloading and proper wound care of the wound. Wound care nurse will be writing orders. In addition we discussed with the patient risk factor modification in particular diabetes control. The patient will offload the foot as much as possible. [facility] as he has been there before. He has stable from a vascular standpoint as he does have a palpable arterial pulse. He can follow up with us on an as-needed basis. Thank you for allowing us to assist in his care. If there are any questions or concerns please do not hesitate to contact us. Procedures Date of Service Date of Service: 09/08/23
--- NOTE | 2023-09-08 11:04 | P.DS_ITS ---
DS: Providers Provider Date of Service: 09/08/23 Date of admission: 09/06/23 00:05 Primary care physician: Darien Bruner MD Consults: 09/06/23 03:11 Consult to Wound Care Routine Reason for consultation: right foot wound 09/06/23 07:22 Consult to General Surgery Routine Consulting Provider: [facility] General Surgeons Reason for consultation: right diabetic foot wound ?debridement Has provider been notified: No 09/06/23 15:18 Consult to Vascular Surgery Routine Consulting Provider: [facility] Vascular Services Reason for consultation: foot wound ?vascular disease Has provider been notified: No 09/07/23 08:28 Consult to Infectious Diseases Routine Consulting Provider: [facility] Infectious Disease [facility] Reason for consultation: Diabetic foot ulcer Has provider been notified: No DS: Diagnosis Discharge Diagnosis (1) Diabetic foot ulcer: Status: Acute DS: Summary Hospital Course Hospital Course: admission hpi Chief Complaint: Foot infection Pt is a 73-year-old male with a PMH significant for?chronic AFib on Coumadin, HFpEF, JUDIE not compliant with CPAP, HLD, non-insulin dependent type 2 diabetes, Charcot foot, and neuropathy who presents to the ED for evaluation of open right diabetic foot wound. Pt has hx of Charcot foot x2 with two large swollen/calloused areas on the bottoms of his feet that have been ongoing for 5+ years. Has been seen by specialist who recommended surgical treatment to remove them though pt has declined so far since he would apparently need to be off his feet for over a month to recover. Reports has had increased right foot and cordova swelling, pain, and possible redness for the past 3-4 days. No fever or chills. This afternoon after a shower his notice the sac on the bottom of his right foot had split open and was draining a mostly clear fluid without noticeable odor. Pt denies any other acute medical complaints. In the ED pt's vitals stable. Labs were significant for leukocytosis of 12.7, ESR 43, and C-reactive protein 5.40. Stable H& H. No significant electrolyte abnormalities. Renal and hepatic function around baseline. Lactic acid WNL at 2.0. CT?of right foot showed no evidence of acute bone destruction, though did show mild diffuse edema throughout the foot with no drainable fluid collection. Also showed advanced arthritic changes throughout the mid and hindfoot similar to previous. Venous duplex ultrasound of right lower extremity found no evidence of DVT. Pt was treated with vancomycin and clindamycin. Pt will be admitted to the hospital for treatment and further evaluation of right foot cellulitis in the setting of diabetic foot ulcer. Hospital Patient with charcol foot and presented with right foot ulcer with elevated ESR, and CRP, and increase in WBC.. Initial concern osteomylitis and was started on vancomycin and Cefepime. CT of the foot showed edema but no marychuy destruction.. The open wound was debrided by surgery and recommendation for outpatient follow up with the wound clinic. Given that there is no evidence of osteomylitis, will change to oral antibiotics Doxycyline for for total of 10 days Time Attestation Discharge Coordination Time (in mins): 40 Quality: Safe Use of Opioids Does Pt have an Active Cancer Diagnosis on the Problem List?: No Quality: Stroke Does the patient have a stroke diagnosis?: No Physical Exam Vital Signs: Vital Signs: Last Vital Signs Temp 98.1 F 09/08/23 06:54 Pulse 63 09/08/23 06:54 Resp 17 09/08/23 06:54 BP 149/70 H 09/08/23 06:54 Pulse Ox 98 09/08/23 06:54 O2 Del Method Room Air 09/08/23 06:54 BMI result Body Mass Index 38.5 DS: Data Data Completed and Pending Completed studies during hospitalization [Text1]: Procedures Replacement of Left Knee Joint with Synthetic Substitute, Uncemented, Open Approach (01/03/20) Labs on day of discharge: Laboratory Results - last 24 hr 09/07/23 09/07/23 09/07/23 11:12 15:00 19:20 WBC RBC Hgb Hct MCV MCH MCHC RDW Plt Count MPV Immature Gran % (Auto) Neut % (Auto) Lymph % (Auto) [place] % (Auto) Eos % (Auto) Baso % (Auto) Lymph # (Auto) [place] # (Auto) Eos # (Auto) Baso # (Auto) Abs Immat Gran (auto) Absolute Neuts (auto) Absolute Nucleated RBC Nucleated RBC % (auto) Hold Purple Top PT INR Creatinine Estim Creat Clear Calc Estimated GFR POC Glucose 207 H 134 H 133 H Random Vancomycin 09/08/23 09/08/23 09/08/23 05:30 07:10 07:14 WBC 8.1 RBC 3.63 L Hgb 11.9 L Hct 35.7 L MCV 98.3 H MCH 32.8 MCHC 33.3 RDW 12.8 Plt Count 232 MPV 10.4 Immature Gran % (Auto) 0.5 H Neut % (Auto) 62.0 Lymph % (Auto) 20.8 [place] % (Auto) 11.3 H Eos % (Auto) 4.9 H Baso % (Auto) 0.5 Lymph # (Auto) 1.7 [place] # (Auto) 0.9 Eos # (Auto) 0.4 Baso # (Auto) 0.0 Abs Immat Gran (auto) 0.04 H Absolute Neuts (auto) 5.0 Absolute Nucleated RBC 0.000 Nucleated RBC % (auto) 0.0 Hold Purple Top SEE NOTE PT 24.2 H INR 2.0 H Creatinine 1.15 Estim Creat Clear Calc 72.5 Estimated GFR > 60 POC Glucose 172 H Random Vancomycin 15.1 Preliminary micro results at discharge 09/05/23 20:10 Blood Culture - Preliminary Blood - Venous No growth after 48 hours. 09/05/23 19:45 Blood Culture - Preliminary Blood - Venous No growth after 48 hours. Discharge Plan Discharge Anticipated Discharge Date/Time: 09/08/23 11:00 Patient Disposition: Home, Self-Care Discharge Diagnosis: Diabetic foot ulcer, cellulitis Referrals: [facility] [Outside] - 1 Week (HOME SERVICES FOR WOUND CARE: A NURSE WILL CALL TO SET UP FIRST VISIT) Darien Bruner MD [Primary Care Provider] - 1 Week Discharge Medications: New doxycycline monohydrate 100 mg Capsule 100 mg PO Q12H Qty: 22 0RF Continued pravastatin 80 mg tablet 80 mg PO BEDTIME tamsulosin 0.4 mg capsule 0.4 mg PO DAILY@1700 metformin 500 mg tablet extended release 24 hr 1,000 mg PO DAILY furosemide 40 mg tablet 40 mg PO SUTUTHSA@0900 carvedilol 12.5 mg tablet 12.5 mg PO DAILY glipizide 5 mg tablet extended release 24hr 10 mg PO BID metolazone 2.5 mg tablet 2.5 mg PO SA@0900 metformin 500 mg tablet extended release 24 hr 500 mg PO BEDTIME warfarin 4 mg tablet 4 mg PO DAILY@1800 Protocol: Dose Management Condition: Friday (Week One) Dose/Route: 6 mg Instruction: 1 x 2 mg tablet, 1 x 4 mg tablet Condition: Friday Dose/Route: 6 mg Instruction: 1 x 2 mg tablet, 1 x 4 mg tablet Condition: Friday Dose/Route: 6 mg Instruction: 1 x 2 mg tablet, 1 x 4 mg tablet Condition: Friday Dose/Route: 6 mg Instruction: 1 x 2 mg tablet, 1 x 4 mg tablet Condition: Dose/Route: 6 mg Instruction: 1 x 2 mg tablet, 1 x 4 mg tablet Condition: Friday Dose/Route: 6 mg Instruction: 1 x 2 mg tablet, 1 x 4 mg tablet Condition: Friday Dose/Route: 6 mg Instruction: 1 x 2 mg tablet, 1 x 4 mg tablet Condition: Friday (Week Two) Dose/Route: 6 mg Instruction: 1 x 2 mg tablet, 1 x 4 mg tablet Condition: Friday Dose/Route: 6 mg Instruction: 1 x 2 mg tablet, 1 x 4 mg tablet Condition: Friday Dose/Route: 6 mg Instruction: 1 x 2 mg tablet, 1 x 4 mg tablet Condition: Friday Dose/Route: 6 mg Instruction: 1 x 2 mg tablet, 1 x 4 mg tablet Condition: Dose/Route: 6 mg Instruction: 1 x 2 mg tablet, 1 x 4 mg tablet Condition: Friday Dose/Route: 6 mg Instruction: 1 x 2 mg tablet, 1 x 4 mg tablet Condition: Friday Dose/Route: 6 mg Instruction: 1 x 2 mg tablet, 1 x 4 mg tablet Protocol Text: Adjustment Start Date: Friday08/22/23 INR Value: 3.1 INR Date: 08/22/23 Recheck Date: 09/21/23 Additional Instructions: REVEIW FOOD LIST WEEKLY, EAT A OF FRUITS AND VEGETABLES Rx Instructions: 6MGX7 warfarin 2 mg tablet 2 mg PO DAILY@1800 Protocol: Dose Management Condition: Friday (Week One) Dose/Route: 6 mg Instruction: 1 x 2 mg tablet, 1 x 4 mg tablet Condition: Friday Dose/Route: 6 mg Instruction: 1 x 2 mg tablet, 1 x 4 mg tablet Condition: Friday Dose/Route: 6 mg Instruction: 1 x 2 mg tablet, 1 x 4 mg tablet Condition: Friday Dose/Route: 6 mg Instruction: 1 x 2 mg tablet, 1 x 4 mg tablet Condition: Dose/Route: 6 mg Instruction: 1 x 2 mg tablet, 1 x 4 mg tablet Condition: Friday Dose/Route: 6 mg Instruction: 1 x 2 mg tablet, 1 x 4 mg tablet Condition: Friday Dose/Route: 6 mg Instruction: 1 x 2 mg tablet, 1 x 4 mg tablet Condition: Friday (Week Two) Dose/Route: 6 mg Instruction: 1 x 2 mg tablet, 1 x 4 mg tablet Condition: Friday Dose/Route: 6 mg Instruction: 1 x 2 mg tablet, 1 x 4 mg tablet Condition: Friday Dose/Route: 6 mg Instruction: 1 x 2 mg tablet, 1 x 4 mg tablet Condition: Friday Dose/Route: 6 mg Instruction: 1 x 2 mg tablet, 1 x 4 mg tablet Condition: Dose/Route: 6 mg Instruction: 1 x 2 mg tablet, 1 x 4 mg tablet Condition: Friday Dose/Route: 6 mg Instruction: 1 x 2 mg tablet, 1 x 4 mg tablet Condition: Friday Dose/Route: 6 mg Instruction: 1 x 2 mg tablet, 1 x 4 mg tablet Protocol Text: Adjustment Start Date: Friday08/22/23 INR Value: 3.1 INR Date: 08/22/23 Recheck Date: 09/21/23 Additional Instructions: REVEIW FOOD LIST WEEKLY, EAT A OF FRUITS AND VEGETABLES Rx Instructions: 6MGX7 furosemide 40 mg tablet 80 mg PO MOWEFR@0900 oxycodone-acetaminophen 5-325 mg tablet 1 tab PO 5XD PRN (Reason: Pain) cholecalciferol (vitamin D3) 25 mcg (1,000 unit) capsule 50 mcg PO DAILY uhdlxrsgudyv-gvbhomug-opguhb Tablet 1 tab PO DAILY (DME) blood sugar diagnostic Strip See Rx Instructions .ROUTE .MEDSUPPLY Qty: 10 Rx Instructions: As directed (DME) pen needle, diabetic 31 gauge x 3/16 needle See Rx Instructions subcut .MEDSUPPLY Qty: 50 Rx Instructions: As directed diltiazem HCl 240 mg capsule,extended release 24 hr 240 mg PO DAILY Discharge Orders: Discharge Order (Routine); Ordered 09/08/23 Ordered By: Karlo Shaver Diet: Diabetic diet Activity on Discharge: As tolerated Stand Alone Forms: Patient Portal Discharge page Print Language: Sammarinese Activity Restrictions/Additional Instructions: Topical Wound Care Recommendations: Right Plantar Foot - Off load pressure - elevate foot and limit walking. Cleanse with NS, Pat dry.? Apply barrier wipe to periwound, cover wound bed with Durafiber AG.? Cover with Foam dressing.? Change every other day. Wound Clinic Follow up Recommend follow up out patient Wound Clinic at [address] [place] [address] and to call for an appointment at time of discharge. [phone].? Dr West Recommend Dr. West Vascular Surgeon for outpatient follow up.? His office is located at [address] [place] [address] [address], [place] [id number], call for an appointment at time of discharge [phone] Care Plan Goals: Healing of the wound and preven bony involvment Health Concerns: Diabetic foot ulcer Plan of Treatment: take Doxycyline as recommended and follow up Assessment: see above Discharge Date/Time: 09/08/23 14:47
[2023-09-08 11:17] LABS: Glucose, Whole Blood 182 mg/dL (60-115)
[2023-09-08] MEDS: Doxycycline Monohydrate 100 MG CAPSULE PO (11:30)
--- NOTE | 2023-09-08 12:36 | HO.WOUND ---
Wound Consult: Initial 73yr old? Male admitted to [facility] on 09/06/23 - See progress notes and H&P for detailed history.? Wound consult placed for Right Plantar wound.? Patient agreeable to assessment and photo documentation.? Patient was evaluataed with Dr. West - See his note fore details - some debridement was performed. Right Plantar Foot Etiology: ??Diabetic Wound Measurements: 3.5cm x 4cm x 0.2cm Wound Bed: adherent thin yellow slough with surround pink moist wound bed Drainage / Odor: no odor - serosang drainage noted on dressing Edges: ? irregular and callused Keshia wound: ?Charcot foot changes noted to both plantar feet - dry thickened callus, +PP, +swelling noted - No Induration, Fluctuance or Warmth noted Pain: denies pain at this time reports neuropathy Goals of Treatment: ? Durafiber AG for moisture management and antimicrobial properties. - follow up with Dr. West and Outpt wound clinic. Recommendations: 1. Turn and Reposition every 2 hours and as needed for patient comfort.? Use pillows or wedges to support off loading positions. 2. Off Load all bony prominences with use of pillows and heel boots if needed.? Apply Preventative foams where needed. ? 3. Monitor for incontinence and moisture control, use barrier creams when needed for prevention and treatment. 4. Provide adequate and supplemental nutrition.? 5. Order or Continue low air loss mattress. 6. When applicable maintain blood glucose levels per Providers order. 7. Right Plantar Foot - Off load pressure - elevate foot and limit walking. Cleanse with NS, Pat dry.? Apply barrier wipe to periwound, cover wound bed with Durafiber AG.? Cover with Foam dressing.? Change every other day. Wound Clinic Follow up Recommend follow up out patient Wound Clinic at [address] [place] [address] and to call for an appointment at time of discharge. [phone].? Dr West Recommend Dr. West Vascular Surgeon for outpatient follow up.? His office is located at [address] [place] [address] [address], [place] [id number], call for an appointment at time of discharge [phone] Re-consult wound care Nurse for wound deterioration or wound changes.
--- NOTE | 2023-09-08 13:30 | MHC.CM.PN ---
Addendum entered by Jacklyn Ramírez 09/08/23 13:59: PT WOULD LIKE A [facility] TO ASSIST WITH WOUND CARE, COMFORT PLUS [facility] ACCEPTING. MD NOTIFIED. Original Note: DP: PT HAS BEEN MEDICALLY CLEARED FOR DC HOME, NO SERVICES. FAMILY WILL TRANSPORT
--- NOTE | 2023-09-08 15:48 | P.F2F_ITS ---
Service Date Service Date: 09/08/23 Encounter Date of encounter: 09/08/23 Reasons for Services Signs and symptoms assessed: Diabetic foot ulcer, pain and making it difficulty to walk Reason for prison: wound care and medication management Homebound: Leaving the home is medically contraindicated at this time without the asist of a device and/or another person due th the listed conditions above and below. Reason homebound: pain with ambulation Homebound supporting statement: Doot ulcer making ambulation difficult and therefore needs the assistance of another person Certification: Based on the above findings, I certify that this patient is confined to the home and needs intermittent prison care, physical therapy and/or speech therapy, or continues to need occupational therapy. The patient is under my care, and I have initiated the establishment of the plan of care. The patient will be followed by a physician who will periodically review the plan of care. Time Spent With Patient Time: Total time managing care of this patient today ____ minutes.
--- NOTE | 2023-09-08 16:14 | W.PM.IDCN ---
History of Present Illness Data of Consult Service Date: 09/08/23 Requesting physician: Karlo Berrios Primary Care Provider: Darien Bruner MD [facility] Reason for consult: right foot plantar wound He presents with right plantar wound for several weeks. He has no fever or chills. He has Charcot type foot and callus there. CT scan negative foot for OM. [facility] Past Medical History Medical History Type 2 diabetes mellitus with unspecified complications Essential hypertension Persistent atrial fibrillation Osteoarthritis of left knee Deafness in left ear JUDIE (obstructive sleep apnea) Osteoarthritis Anemia Venous stasis Hard of hearing Obesity GERD (gastroesophageal reflux disease) BPH (benign prostatic hyperplasia) Diabetes Peripheral edema Atrial fibrillation COPD (chronic obstructive pulmonary disease) Chronic a-fib Family History Family History Father No problems noted. Mother Stroke Family history: reviewed and not pertinent Surgical History Surgical History Hx of total knee arthroplasty History of amputation of toe Hx of total shoulder replacement Hx of colonoscopy History of bilateral hip replacements Uses cochlear implant Social History Social History Household Members: Spouse Housing: House Do you presently have visiting nurse or other home services: No (for discharge) Alcohol intake: never Patient Tobacco Use Status: Former Tobacco user Second Hand Smoke Exposure: No Advance Directives Date on File: 12/31/19 service: No 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al status: retired 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 Meds Allergies Allergy/AdvReac Type Severity Reaction Status Date / Time Penicillins [PENICILLINS] Allergy Intermediate rash- Verified 09/05/23 16:53 STATES BAD RXN CHILD Home Medications ?Medication ?Instructions ?Recorded ?Confirmed ?Last Taken ?Type metformin 500 mg tablet,extended 1,000 mg PO DAILY 12/31/19 09/06/23 09/05/23 History release 24 hr pravastatin 80 mg tablet 80 mg PO BEDTIME 12/31/19 09/06/23 Unknown History tamsulosin 0.4 mg capsule 0.4 mg PO DAILY@1700 12/31/19 09/06/23 Unknown History cholecalciferol (vitamin D3) 25 50 mcg PO DAILY 05/08/20 09/06/23 09/05/23 History mcg (1,000 unit) capsule osarpjpgnvuz-oqnlbhds-uuuzib tablet 1 tab PO DAILY 05/08/20 09/06/23 09/05/23 History oxycodone-acetaminophen 5 mg-325 1 tab PO 5XD PRN Pain 05/08/20 09/06/23 Unknown History mg tablet blood sugar diagnostic #10 ea 06/12/20 08/22/23 Unknown History pen needle, diabetic 31 gauge x #50 ea 06/12/20 08/22/23 Unknown History 05/23 furosemide 40 mg tablet 80 mg PO MOWEFR@0900 01/02/21 09/06/23 09/05/23 History diltiazem HCl 240 mg capsule,24 240 mg PO DAILY 06/26/21 09/06/23 09/05/23 History hr,extended release carvedilol 12.5 mg tablet 12.5 mg PO DAILY 09/06/23 09/06/23 09/05/23 History furosemide 40 mg tablet 40 mg PO SUTUTHSA@0909/06/23 09/06/23 Unknown History glipizide 5 mg tablet, extended 10 mg PO BID 09/06/23 09/06/23 09/05/23 History release 24 hr metformin 500 mg tablet,extended 500 mg PO BEDTIME 09/06/23 09/06/23 Unknown History release 24 hr metolazone 2.5 mg tablet 2.5 mg PO SA@0900 09/06/23 09/06/23 Unknown History warfarin 2 mg tablet 2 mg PO DAILY@1800 09/06/23 09/06/23 Unknown History warfarin 4 mg tablet 4 mg PO DAILY@1800 09/06/23 09/06/23 Unknown History Physical Exam Vital Signs: Vital Signs: Last Vital Signs Temp 98.1 F 09/08/23 06:54 Pulse 63 09/08/23 06:54 Resp 17 09/08/23 06:54 BP 149/70 H 09/08/23 06:54 Pulse Ox 98 09/08/23 06:54 O2 Del Method Room Air 09/08/23 06:54 BMI result Body Mass Index 38.5 Const: General: cooperative HEENT: Head: Yes normal to inspection Face and sinus: Yes normal facial exam Mouth: Normal oral and palatal mucosa present Teeth and gingiva: dentition normal Eyes: General: appearance normal, both eyes and all related structures Pupils: Equal, round and reactive pupils present Resp: Effort & Inspection: normal respiratory effort Cardio: Rate: regular rate Rhythm: regular rhythm GI: Palpation (GI): Soft to palpation and nontender : General: Yes no CVA tenderness Back/Spine/Pelvis: Back: no CVA tenderness Skin: General skin exam: no rashes or lesions noted Neuro: General: moves all extremities Cranial nerves: Yes Equal, round and reactive pupils present Extrem: Other: callus plantar right foot Psych: Appearance: grossly normal Results Labs 09/08/23 05:30 09/08/23 05:30 Labs: Short CBC 09/08/23 Range/Units 05:30 WBC 8.1 (4.8-10.8) X10*3/uL Hgb 11.9 L (14.0-18.0) g/dl Hct 35.7 L (42.0-52.0) % Plt Count 232 (160-400) X10*3/uL BMP 09/08/23 05:30 Creatinine 1.15 Microbiology Microbiology Results: Microbiology 09/05/23 20:10 Blood - Venous Blood Culture - Preliminary No growth after 48 hours. 09/05/23 19:45 Blood - Venous Blood Culture - Preliminary No growth after 48 hours. Assessment and Plan (1) Diabetic foot ulcer: Qualifiers: Diabetes mellitus type: type 2 Diabetic foot ulcer location: midfoot Laterality: right Non-pressure ulcer stage: limited to breakdown of skin Qualified Code(s): E11.621 - Type 2 diabetes mellitus with foot ulcer; L97.411 - Non-pressure chronic ulcer of right heel and midfoot limited to breakdown of skin Status: Acute (2) Cellulitis: Qualifiers: Laterality: right Site of cellulitis: extremity Site of cellulitis of extremity: lower extremity Qualified Code(s): L03.115 - Cellulitis of right lower limb Status: Acute Plan He has no OM seen foot. There is no concern Would give po Doxycycline 100 mg bid for 14 days Follow with providers in a week,Wound Care.
--- NOTE | 2023-09-09 14:01 | P.CDIM_ITS ---
PROVIDER RESPONSE TEXT: To clarify, the appropriate diagnosis supported by the clinical indicators: Cellulitis right foot due to/associated with Diabetes mellitus QUERY TEXT: PHYSICIAN'S DOCUMENTATION REQUEST Date of Query: 09/08/2023 09:53 AM EDT Patient Name: Leonardo Pang Admit Date: 09/06/2023 Dear Karlo Shaver, A review of the medical record indicates additional documentation may be needed. Please review below and update the documentation accordingly. Clinical Indicators: H&P 09/04 - Pt will be admitted to the hospital for treatment and further evaluation of right foot nader lulitis in the setting of diabetic foot ulcer. Right lower leg and foot swelling, pain, redness, open draining wound on bottom of right foot. Vancomycin and cefepime Possible debridement Please clarify the following regarding the cellulitis and the noted Diabetes Mellitus (DM): Cellulitis right foot due to/associated with Diabetes mellitus Other (explain) Clinically unable to determine (explain) Thank you, Candace Kumar, CCS, CDIS Use of terms such as suspected, likely, concern for, or probable (associated with a specific diagnosi s that is being evaluated, monitored, or treated as if it exists) are acceptable and can be coded in the inpatient se tting, when documented at the time of discharge. Please use your independent medical judgment in providing your response. THIS QUERY IS PART OF THE PERMANENT MEDICAL RECORD
== END 2023-09-08 14:47 | disposition home health service (06) | DRG 300 ==
LOC: HO.ED 23:06 → HO.EDOVER 09-06 00:19 → HO.S3 09-06 00:43
PROVIDERS: Physician Assistant; Physician Assistant Medical; Admitting Provider Student in an Organized Health Care Education/Training Program; Emergency Provider Emergency Medicine; PCP Internal Medicine; Visit Provider Internal Medicine
DX: E11.52 Type 2 diabetes mellitus with diabetic peripheral angiopathy with gangrene (principal); I48.19 Other persistent atrial fibrillation; L02.611 Cutaneous abscess of right foot; I50.32 Chronic diastolic (congestive) heart failure; L03.115 Cellulitis of right lower limb; L97.411 Non-pressure chronic ulcer of right heel and midfoot limited to breakdown of skin; E11.628 Type 2 diabetes mellitus with other skin complications; E11.621 Type 2 diabetes mellitus with foot ulcer; E78.5 Hyperlipidemia, unspecified; N40.0 Benign prostatic hyperplasia without lower urinary tract symptoms; E11.610 Type 2 diabetes mellitus with diabetic neuropathic arthropathy; Z87.891 Personal history of nicotine dependence; Z79.01 Long term (current) use of anticoagulants; Z79.84 Long term (current) use of oral hypoglycemic drugs; Z79.899 Other long term (current) drug therapy
CPT/HCPCS: 36415; 73700; 80048; 80053; 80202; 82565; 82947; 83605; 83735; 85025; 85027; 85610; 85652; 86140; 87040; 93971; 99285; J0692; J0736; J3370

== ENCOUNTER → 2023-09-06 00:05 | Outpatient (BNV) | payer MEDICARE, SELFPAY | PROVIDERS: Admitting Provider Student in an Organized Health Care Education/Training Program; Emergency Provider Emergency Medicine; PCP Internal Medicine; Visit Provider Internal Medicine | DX: E11.621 Type 2 diabetes mellitus with foot ulcer (principal); L97.411 Non-pressure chronic ulcer of right heel and midfoot limited to breakdown of skin; L03.115 Cellulitis of right lower limb | CPT/HCPCS: 99222 ==

== ENCOUNTER → 2023-09-06 00:05 | Outpatient (BNV) | payer MEDICARE, SELFPAY | PROVIDERS: Admitting Provider Student in an Organized Health Care Education/Training Program; Emergency Provider Emergency Medicine; PCP Internal Medicine; Visit Provider Surgery | DX: L03.115 Cellulitis of right lower limb (principal); E11.621 Type 2 diabetes mellitus with foot ulcer; L97.411 Non-pressure chronic ulcer of right heel and midfoot limited to breakdown of skin | CPT/HCPCS: 99222; 99232 ==

== ENCOUNTER → 2023-09-06 00:05 | Outpatient (BNV) | payer MEDICARE, SELFPAY | PROVIDERS: Admitting Provider Student in an Organized Health Care Education/Training Program; Emergency Provider Emergency Medicine; PCP Internal Medicine; Visit Provider Surgery Vascular Surgery | DX: E11.621 Type 2 diabetes mellitus with foot ulcer (principal); L97.411 Non-pressure chronic ulcer of right heel and midfoot limited to breakdown of skin | CPT/HCPCS: 99222 ==

== ENCOUNTER → 2023-09-17 10:40 | Outpatient (BNVA) | payer MEDICARE, SELFPAY | PROVIDERS: PCP Internal Medicine; Visit Provider Internal Medicine ==

== ENCOUNTER 2023-10-07 08:55 | Outpatient (AMB) | payer MEDICARE, SELFPAY ==
[2023-10-07 09:04] VITALS: BP 110/60; PULSE 92; BMI 38.2
--- NOTE | 2023-10-07 09:04 | A.OFFVIS_ITS ---
Vital Signs 10/07/23 09:04 Height 5 ft 8 in Weight 251 lb 5.231 oz BMI 38.2 BP 110/60 Blood Pressure Location Lt brachial Position Sitting Pulse 92 Pulse Source Pulse Oximeter Intake Visit Reasons: 6 mth f/up Allergies Penicillins [PENICILLINS] Allergy (Intermediate, Verified 09/17/23 11:26) rash- STATES BAD RXN CHILD Medication List - Last Reconciled 10/07/23 by Camacho Kirkland MD blood sugar diagnostic As directed carvedilol 12.5 mg PO DAILY cholecalciferol (vitamin D3) 50 mcg PO DAILY furosemide 40 mg PO SUTUTHSA@0900 glipizide ER 10 mg PO BID metformin ER 500 mg PO BEDTIME metolazone 2.5 mg PO SA@0900 onpgslrffeyi-ryqehtdq-ynchsv 1 tab PO DAILY oxycodone-acetaminophen 5-325 mg 1 tab PO 5XD PRN pen needle, diabetic As directed pravastatin 80 mg PO BEDTIME tamsulosin 0.4 mg PO DAILY@1700 warfarin 6 mg See Protocol PO DAILY@1800 HPI Comments Details: Leonardo returns for follow-up regarding various cardiac issues. He has a history of chronic atrial fibrillation treated by rate control. He also has chronic right-sided heart failure. Per patient, he has sleep apnea and had CPAP mask more than a decade ago but has not used a long time as it is very inconvenient. Per patient and family, he has been dealing with some leg issues and been on antibiotics extra. Otherwise, from cardiac things are at baseline. No new issues. Shortness of breath is just about the same as before. No angina. Apparently, heart rate was on the lower side and hence his diltiazem has been stopped. ON LICENSE OF [facility] Medical History Type 2 diabetes mellitus with unspecified complications Essential hypertension Persistent atrial fibrillation Osteoarthritis of left knee Deafness in left ear JUDIE (obstructive sleep apnea) Osteoarthritis Anemia Venous stasis Hard of hearing Obesity GERD (gastroesophageal reflux disease) BPH (benign prostatic hyperplasia) Diabetes Peripheral edema Atrial fibrillation COPD (chronic obstructive pulmonary disease) Chronic a-fib Surgical History Hx of total knee arthroplasty History of amputation of toe Hx of total shoulder replacement Hx of colonoscopy History of bilateral hip replacements Uses cochlear implant Family History Father No problems noted. 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 Review of Systems Const Denies weakness ENT Denies dizziness Card Denies chest pain, Denies chest pain with activity, Denies syncope, Denies rapid heart rate, Denies pedal edema, Denies edema, Denies leg edema, Denies lightheadedness, Denies palpitations, Denies dyspnea, Denies dyspnea on exertion and Denies orthopnea Resp Denies cough, Denies dyspnea and Denies dyspnea on exertion GI Denies hematochezia and Denies change in stool character Musc Denies abnormal gait, Denies muscle cramps, Denies muscle weakness, Denies numbness, Denies radiating pain into limb and Denies tingling Neuro Denies abnormal gait, Denies dizziness, Denies syncope, Denies numbness, Denies tingling and Denies weakness Endo Denies palpitations Physical Exam Vital Signs: Last Vital Signs Pulse 92 10/07/23 09:04 BP 110/60 10/07/23 09:04 BMI result Body Mass Index 38.2 Const General: comfortable and no acute distress Orientation/consciousness: patient oriented x3 HEENT Other: Unremarkable Head: Yes normal to inspection Neck Neck: Yes normal visual inspection Chest Chest palpation & inspection: normal inspection of the chest Resp Auscultation: clear to auscultation bilaterally Cardio Palpation: normal PMI Heart sounds: S1 normal heart sound present, S2 normal heart sound present, no gallops, no murmurs and no rubs GI Palpation (GI): Soft to palpation Back/Spine/Pelvis Other: unremarkable Skin General skin exam: no rashes or lesions noted Neuro General: patient oriented x3 Extrem Other: Mild bilateral swelling with some redness. Psych Mental Status: mental status grossly normal Assessment & Plan Assessment & Plan (1) Chronic right heart failure: Code(s): I50.812 - Chronic right heart failure Category: Medical Plan: Currently takes Lasix and metolazone. He has been stable this way. No changes at this time. (2) Persistent atrial fibrillation: Code(s): I48.19 - Other persistent atrial fibrillation Category: Medical Plan: Per , heart rate was on the slow side and diltiazem has been stopped. Only on carvedilol at this time. He was also on digoxin in the past but stopped due to tiredness. We will check Holter for adequacy of heart rate control. Continue anticoagulation without changes. (3) PVC (premature ventricular contraction): Code(s): I49.3 - Ventricular premature depolarization Category: Medical Plan: In the last Holter, he had frequent PVCs with a burden of about 5.6%. Longest run was about 3 beats. Some of them could also be aberrantly conducted atrial fibrillation. May reassess on Holter. Do not believe it is causing any clinical issues at this time. (4) Essential hypertension: Code(s): I10 - Essential (primary) hypertension Category: Medical Plan: Stable on current regimen. (5) Type 2 diabetes mellitus with unspecified complications: Code(s): E11.8 - Type 2 diabetes mellitus with unspecified complications Category: Medical Plan: On Insulin, metformin, glipizide. Hemoglobin A1c is 6.8%. (6) JUDIE (obstructive sleep apnea): Code(s): G47.33 - Obstructive sleep apnea (adult) (pediatric) Category: Medical Plan: Prior sleep study had shown moderately severe obstructive sleep apnea-2016. He does not use CPAP and this has been discussed numerous times. Plan Discussed with who came for appointment. Orders: Orders ECG 3 day holter monitor Today I48.19 - Other persistent atrial fibrillation Coding Level of Care Code Est Pt Level 4 (57379) Diagnoses Chronic right heart failure I50.812 Persistent atrial fibrillation I48.19 PVC (premature ventricular contraction) I49.3 Essential hypertension I10 Type 2 diabetes mellitus with unspecified complications E11.8 JUDIE (obstructive sleep apnea) G47.33
== END 2023-10-07 09:29 | disposition home or self-care (01) ==
PROVIDERS: PCP Internal Medicine; Visit Provider Internal Medicine
DX: I50.812 Chronic right heart failure (principal); I48.19 Other persistent atrial fibrillation; I49.3 Ventricular premature depolarization; I10 Essential (primary) hypertension; E11.8 Type 2 diabetes mellitus with unspecified complications; G47.33 Obstructive sleep apnea (adult) (pediatric)
CPT/HCPCS: 99214

== ENCOUNTER → 2023-10-07 08:55 | Outpatient (BNVA) | payer MEDICARE, SELFPAY | PROVIDERS: PCP Internal Medicine; Visit Provider Internal Medicine | DX: I11.0 Hypertensive heart disease with heart failure (principal); I50.812 Chronic right heart failure; I48.19 Other persistent atrial fibrillation; I49.3 Ventricular premature depolarization; E11.8 Type 2 diabetes mellitus with unspecified complications; G47.33 Obstructive sleep apnea (adult) (pediatric) | CPT/HCPCS: 99212 ==

== ENCOUNTER 2023-10-08 08:04 | Outpatient (AMB) | payer MEDICARE, SELFPAY ==
[2023-10-08 08:10] LABS: Prothrombin Time Whole Bld POC 29.6 sec (11.1-13.5); ~PT, ~INR - Anti Coag Clinic 2.5 (0.9-1.1)
--- NOTE | 2023-10-08 08:24 | MHC.OFFVISCO ---
Intake Intake Visit Reasons: Anticoagulation Allergies Penicillins [PENICILLINS] Allergy (Intermediate, Verified 10/08/23 08:04) rash- STATES BAD RXN CHILD Medication List - Last Reconciled 10/08/23 by Sayra Adorno RN blood sugar diagnostic As directed carvedilol 12.5 mg PO DAILY cholecalciferol (vitamin D3) 50 mcg PO DAILY furosemide 40 mg PO SUTUTHSA@0900 glipizide ER 10 mg PO BID metformin ER 500 mg PO BEDTIME metolazone 2.5 mg PO SA@0900 imkcungeinzs-axcwivot-ufhwne 1 tab PO DAILY oxycodone-acetaminophen 5-325 mg 1 tab PO 5XD PRN pen needle, diabetic As directed pravastatin 80 mg PO BEDTIME sulfamethoxazole-trimethoprim 800-160 mg 1 tab PO BID tamsulosin 0.4 mg PO DAILY@1700 warfarin 6 mg See Protocol PO DAILY@1800 warfarin 4 mg PO DAILY Nursing Note DAUGHET AND OR WILL BE BRINGING PT FOR APPTS INR: 2.5 in therapeutic range Medications and supplements reviewed RETURNING FROM [facility] SERVICES - HAS A FOOT ULCER THAT IS STILL BEING TREATED BY WOUND CLINIC AND ANTBX SULFAMETHONAZOLE X 10DAY WHICH GREATLY CAN EFFECT THE INR Denies any signs and symptoms of bleeding or bruising or clotting. Bleeding, bruising, clotting discussed Nutritional guidance given - EAT AN EXTRA SERVING OF GREENS THIS WEEK AND NEXT Dose: DECREASE WEEKLY AMT 2MG THIS FRIDAY AND NEXT FRIDAY/ 6MG ALL OTHER DAYS F/U INR: 10/17/23 Patient verbalizes understanding of instructions given Anti-Coag Initial Assessment Social Hx Patient Tobacco Use Status: Former Tobacco user alcohol intake: never Alcohol intake frequency: former alcohol drinker Coding Level of Care Code Est Patient Level 1 Diagnoses Current use of anticoagulant therapy Z79.01 Assessment & Plan Assessment & Plan (1) Current use of anticoagulant therapy: Code(s): 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
== END 2023-10-08 08:28 | disposition home or self-care (01) ==
LOC: HO.ACS 08:04
PROVIDERS: PCP Internal Medicine; Visit Provider Internal Medicine
DX: Z79.01 Long term (current) use of anticoagulants (principal)

== ENCOUNTER → 2023-10-08 08:04 | Outpatient (BNVA) | payer MEDICARE, SELFPAY | PROVIDERS: PCP Internal Medicine; Visit Provider Internal Medicine | DX: I48.20 Chronic atrial fibrillation, unspecified (principal); Z79.01 Long term (current) use of anticoagulants; Z51.81 Encounter for therapeutic drug level monitoring | CPT/HCPCS: 85610; 99211 ==

== ENCOUNTER → 2023-10-10 07:48 | Outpatient (BNV) | payer MEDICARE, SELFPAY | PROVIDERS: PCP Internal Medicine; Visit Provider Internal Medicine | DX: I48.91 Unspecified atrial fibrillation (principal) | CPT/HCPCS: 93244 ==

== ENCOUNTER → 2023-10-10 09:49 | Outpatient (REF) | payer MEDICARE, SELFPAY ==
--- NOTE | 2023-10-10 07:48 | HM_ITS ---
* Total monitoring time 3 days. * Underlying rhythm is atrial fibrillation. Average ventricular rate 66/Min. Only 1% of the time, rate > 100/Min. * Rare ventricular ectopy. Short runs noted. Longest 20 beats. Monomorphic. * Longest pause 2.8 seconds during sleep hours, does not reach significance. * No patient markers or diary events. MTDD
== END ==
LOC: HO.CARD 09:49
PROVIDERS: PCP Internal Medicine; Visit Provider Internal Medicine
DX: I48.19 Other persistent atrial fibrillation (principal)
CPT/HCPCS: 93242

== ENCOUNTER 2023-10-17 07:59 | Outpatient (AMB) | payer MEDICARE, SELFPAY ==
[2023-10-17 08:07] LABS: Prothrombin Time Whole Bld POC 25.1 sec (11.1-13.5); ~PT, ~INR - Anti Coag Clinic 2.1 (0.9-1.1)
--- NOTE | 2023-10-17 08:17 | MHC.OFFVISCO ---
Intake Intake Visit Reasons: Anticoagulation Allergies Penicillins [PENICILLINS] Allergy (Intermediate, Verified 10/17/23 08:02) rash- STATES BAD RXN CHILD Medication List - Last Reconciled 10/17/23 by Edith Sharif RN blood sugar diagnostic As directed carvedilol 12.5 mg PO DAILY cholecalciferol (vitamin D3) 50 mcg PO DAILY furosemide 40 mg PO SUTUTHSA@0900 glipizide ER 10 mg PO BID metformin ER 500 mg PO BEDTIME metolazone 2.5 mg PO SA@0900 trgngsdvaogz-irzpoxfb-drvqbx 1 tab PO DAILY oxycodone-acetaminophen 5-325 mg 1 tab PO 5XD PRN pen needle, diabetic As directed pravastatin 80 mg PO BEDTIME sulfamethoxazole-trimethoprim 800-160 mg 1 tab PO BID tamsulosin 0.4 mg PO DAILY@1700 warfarin 6 mg See Protocol PO DAILY@1800 warfarin 4 mg See Protocol PO DAILY Nursing Note Pt to ACS with use of a cane. Wound noted on bottom of right foot per pt. Rt lower leg is swollen but pt states it is improved. He goes to the wound clinic on Mondays. Completed a course of antibx a few days ago. INR: 2.1 in therapeutic range of 2-3 Medications and supplements reviewed No changes in health, diet, medications, or supplements, Denies any signs and symptoms of bleeding or bruising or clotting. Bleeding, bruising, clotting discussed Nutritional guidance given to continue to balance reds and greens Food list reviewed and information sheet given to pt. 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
== END 2023-10-17 08:22 | disposition home or self-care (01) ==
LOC: HO.ACS 07:59
PROVIDERS: PCP Internal Medicine; Visit Provider Internal Medicine
DX: Z79.01 Long term (current) use of anticoagulants (principal)

== ENCOUNTER → 2023-10-17 07:59 | Outpatient (BNVA) | payer MEDICARE, SELFPAY | PROVIDERS: PCP Internal Medicine; Visit Provider Internal Medicine | DX: I48.20 Chronic atrial fibrillation, unspecified (principal); Z79.01 Long term (current) use of anticoagulants; Z51.81 Encounter for therapeutic drug level monitoring | CPT/HCPCS: 85610; 99211 ==

== ENCOUNTER 2023-11-07 08:16 | Outpatient (AMB) | payer MEDICARE, SELFPAY ==
--- NOTE | 2023-11-07 08:48 | MHC.OFFVISCO ---
Intake Intake Visit Reasons: Anticoagulation Allergies Penicillins [PENICILLINS] Allergy (Intermediate, Verified 11/07/23 08:39) rash- STATES BAD RXN CHILD Medication List - Last Reconciled 11/07/23 by Edith Sharif RN blood sugar diagnostic As directed carvedilol 12.5 mg PO DAILY cholecalciferol (vitamin D3) 50 mcg PO DAILY furosemide 40 mg PO SUTUTHSA@0900 glipizide ER 10 mg PO BID metformin ER 500 mg PO BEDTIME metolazone 2.5 mg PO SA@0900 invayjsjzbbh-afljogcs-ifudog 1 tab PO DAILY oxycodone-acetaminophen 5-325 mg 1 tab PO 5XD PRN pen needle, diabetic As directed pravastatin 80 mg PO BEDTIME sulfamethoxazole-trimethoprim 800-160 mg 1 tab PO BID tamsulosin 0.4 mg PO DAILY@1700 warfarin 6 mg See Protocol PO DAILY@1800 warfarin 4 mg See Protocol PO DAILY Nursing Note INR: 2.5 in therapeutic range of 2-3 Medications and supplements reviewed No changes in health, diet, medications, or supplements, Denies any signs and symptoms of bleeding or bruising or clotting. Bleeding, bruising, clotting discussed Nutritional guidance given Dose: 6mg daily F/U INR: 4 weeks Patient verbalizes understanding of instructions given Anti-Coag Initial Assessment Social Hx Patient Tobacco Use Status: Former Tobacco user alcohol intake: never Alcohol intake frequency: former alcohol drinker Coding Level of Care Code Est Patient Level 1 Diagnoses Current use of anticoagulant therapy Z79.01 Results AMB INR Fingerstick AMB INR Fingerstick 2.5 Last Edit by Edith Sharif RN on 11/07/23 08:45 interface delay Assessment & Plan Assessment & Plan (1) Current use of anticoagulant therapy: Code(s): Z79.01 - residential (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
[2023-11-07 08:51] LABS: Prothrombin Time Whole Bld POC 29.9 sec (11.1-13.5); ~PT, ~INR - Anti Coag Clinic 2.5 (0.9-1.1)
== END 2023-11-07 08:49 | disposition home or self-care (01) ==
LOC: HO.ACS 08:16
PROVIDERS: PCP Internal Medicine; Visit Provider Internal Medicine
DX: Z79.01 Long term (current) use of anticoagulants (principal)

== ENCOUNTER → 2023-11-07 08:16 | Outpatient (BNVA) | payer MEDICARE, SELFPAY | PROVIDERS: PCP Internal Medicine; Visit Provider Internal Medicine | DX: I48.20 Chronic atrial fibrillation, unspecified (principal); Z79.01 Long term (current) use of anticoagulants; Z51.81 Encounter for therapeutic drug level monitoring | CPT/HCPCS: 85610; 99211 ==

== ENCOUNTER → 2023-11-14 07:44 | Outpatient (REF) | payer MEDICARE, SELFPAY ==
--- NOTE | 2023-11-14 07:47 | CA_ITS ---
Transthoracic Echocardiogram Patient (Last, First, Middle): Leonardo Pang J Gender: Male Date of : 1950 Age: 73 Procedure Date: 11/14/2023 Procedure Type: Transthoracic Echocardiogram Location: OP Height: 172.72 cm Weight: 115.67 kg BSA: 2.27 m2 Heart Rate: bpm BP: 118 / 70 mmHg Java Websphere Developer: TO Referring MD: Camacho Kirkland MD Symptoms: I49.3 - Ventricular premature depolarization Study Quality: Technically Difficult/Contrast ECG Rhythm: Atrial Fibrillation Conclusions: - The left ventricular systolic function is normal. The visually estimated ejection fraction is between 60-65%. - There is moderate mitral annular calcification. - There is mild to moderate tricuspid valve regurgitation. - The inferior vena cava is dilated and collapses less than 50% with inspiration. Findings Procedure Information Contrast agent, definity, is being given per protocol without apparent complications. The study quality is limited by patients body habitus. Left Ventricle Normal left ventricular cavity size. There is normal left ventricular wall thickness. The left ventricular systolic function is normal. The visually estimated ejection fraction is between 60-65%. There is no evidence of regional wall motion abnormalities. Diastolic function is indeterminate on the basis of available data. Right Ventricle Mildly increased right ventricular cavity size. There is mildly decreased right ventricular systolic function. Atria Both atria are normal in size. Aortic Valve There is a normal trileaflet aortic valve. There is no aortic valve stenosis. There is no aortic valve regurgitation. Mitral Valve There is moderate mitral annular calcification. There is trace mitral valve regurgitation. There is no mitral valve stenosis. Pulmonic Valve The pulmonic valve is likely normal. Tricuspid Valve There is mild to moderate tricuspid valve regurgitation. Mild pulmonary hypertension is present. Great Vessels The asc aorta is normal in size. Venous The inferior vena cava is dilated and collapses less than 50% with inspiration. Pericardium/Pleural There is a small loculated pericardial effusion overlying the right atrium. Prior Study Comparison No significant change compared to prior study dated: 04/26/2022. Measurements 2D Linear Measurements IVSd: 0.96 0.6-0.9/0.6-1.0 cm LVIDd: 4.93 3.9-5.3/4.2-5.9 cm LVIDd Index: 2.17 2.4-3.2/2.2-3.1 cm/m2 LVIDs: 3.11 2.0-3.6 cm LVPWd: 0.96 0.7-1.1 cm LA Diam: 4.60 2.7-3.8/3.0-4.0 cm LAIDs Index: 2.03 1.5-2.3 cm/m2 LV Mass: 208.49 67-162/88-224 g LV Mass Index: 91.85 43-95/49-115 g/m2 LVOT Diam: 2.40 3.0+(-)1.3 cm 2D Systolic Function EF 4C: 58.80 >55% Mitral Valve MV Pk E: 1.14 MV Decel Time: 193.00 E'Lateral: 9.48 E'Medial: 7.18 E/E' Med: 15.90 E/E' Lat: 12.00 PHT: 56.00 MVA PHT: 3.93 Decel [place]: 5.90 Aortic Valve AoV Pk [place]: 1.06 AoV Pk Grad: 4.00 LVOT LVOT Pk [place]y: 0.67 LVOT Mn [place]y: 0.45 LVOT VTI: 0.14 LVOT Pk Grad: 2.00 LVOT Mn Grad: 1.00 LVOT Diam: 2.40 LVOT Area: 4.52 Diastolic Function MV Pk E: 1.14 E'Medial: 7.18 E/E' Med: 15.90 E' Laterial: 9.48 E/E' Lat: 12.00 Right Ventricle TAPSE (mm): 17.80 TVS' Corey: 9.57 Tricuspid Valve TR Pk Corey: 2.80 TR Pk Grad: 31.00 RA Press: 15.00 RVSP: 46.00 Great Vessels Aorta Sinus of Valsalva: 3.67 2.0-3.5 cm Ao Asc: 3.90 2.1-3.4 cm Updated in Other Vendor System with Status of Final Camacho Kirkland MD electronically signed on 11/16/2023 11:19:59 AM with status of Final
== END ==
LOC: HO.CARD 07:44
PROVIDERS: PCP Internal Medicine; Visit Provider Internal Medicine
DX: I49.3 Ventricular premature depolarization (principal); I50.812 Chronic right heart failure; I48.19 Other persistent atrial fibrillation
CPT/HCPCS: 93306; Q9957

== ENCOUNTER → 2023-11-14 07:47 | Outpatient (BNV) | payer MEDICARE, SELFPAY | PROVIDERS: PCP Internal Medicine; Visit Provider Internal Medicine | DX: I36.1 Nonrheumatic tricuspid (valve) insufficiency (principal); I34.81 Nonrheumatic mitral (valve) annulus calcification | CPT/HCPCS: 93306 ==

== ENCOUNTER → 2023-11-27 08:07 | Outpatient (REF) | payer MEDICARE, SELFPAY ==
--- NOTE | ~2023-11-27 | NM_ITS ---
Lexiscan Myocardial perfusion study Indication: Precordial chest pain to evaluate for myocardial ischemia Technique: The patient was brought in for a Lexiscan perfusion study on 11/27/2023 and was injected 0.4 mg of Lexiscan intravenously. Within a minute of this injection 45 mCi of sestamibi was given intravenously. Images were obtained using the SPECT gamma camera interlaced with the gating device. Images were obtained in supine position. Resting perfusion study was performed on 11/28/2023. Patient was administered 45 mCi of sestamibi intravenously at rest. Images were then obtained in supine position. Images were obtained without without CT attenuation. Total DLP 131 mGy-cm. Images were processed with the software and compared side to side in short axis, horizontal long axis and vertical long axis views. Findings: The stress perfusion study showed both attenuated as well as nonattenuated corrected images show small area of mildly reduced uptake in the mid and distal anterior wall of the LV myocardium. Remainder of the LV myocardium is normally perfused. The gated study shows normal LV systolic function with calculated LVEF of 72%. LV cavity is normal in size. The gated study shows normal systolic wall thickening and contraction of segments. Resting study shows normal uptake of radiotracer in both attenuated as is nonattenuated corrected images. Gating at rest reveals normal systolic wall motion with ejection fraction at 75%. The findings are consistent with small area of mild intensity mid and distal anterior wall reversible defect suggestive of ischemia.. NM/NM cardiolite stress test Impression: 1. Myocardial perfusion imaging study shows mild intensity small area of mid and distal anterior wall ischemia 2. Gated LVEF is 72% 3. Transient ischemic dilatation not present Nondiagnostic changes on EKG. Electronically signed by: Miguel Valle MD 11/28/2023 03:07 PM EDT
--- NOTE | 2023-11-27 08:11 | CA_ITS ---
Acquisition Time: 2023-11-27 08:25:48 Total Exercise Time: 00:02:00 Test Indications: Abnormal ECG Medications: SEE H Protocol: LEXISCAN Max HR: 107 BPM 71% of Pred: 149 BPM Max BP: 134/068 mmHG Max Work Load: 1.0 METS Pharmacological stress test with Lexiscan injection while sitting, without anginal symptoms, with isolated PVCs, with normotensive response to injection, with nondiagnoistic EKGs. Nuclear images pending. Test reviewed with Dr. Valle Referred By: Camacho Kirkland Overread By: Natalie Simon
== END ==
LOC: HO.CARD 08:07
PROVIDERS: PCP Internal Medicine; Visit Provider Internal Medicine
DX: R07.2 Precordial pain (principal); I20.9 Angina pectoris, unspecified; I49.3 Ventricular premature depolarization
CPT/HCPCS: 78452; 93017; A9500; J0280; J2785

== ENCOUNTER → 2023-11-27 08:11 | Outpatient (BNV) | payer MEDICARE, SELFPAY | PROVIDERS: PCP Internal Medicine; Visit Provider Nurse Practitioner | DX: I25.5 Ischemic cardiomyopathy (principal); I49.3 Ventricular premature depolarization | CPT/HCPCS: 78452; 93016; 93018 ==

== ENCOUNTER 2023-12-05 08:01 | Outpatient (AMB) | payer MEDICARE, SELFPAY ==
[2023-12-05 08:10] LABS: Prothrombin Time Whole Bld POC 30.6 sec (11.1-13.5); ~PT, ~INR - Anti Coag Clinic 2.5 (0.9-1.1)
--- NOTE | 2023-12-05 08:11 | MHC.OFFVISCO ---
Intake Intake Visit Reasons: Anticoagulation Allergies Penicillins [PENICILLINS] Allergy (Intermediate, Verified 12/05/23 08:04) rash- STATES BAD RXN CHILD Medication List - Last Reconciled 12/05/23 by Sayra Adorno RN blood sugar diagnostic As directed carvedilol 12.5 mg PO DAILY cholecalciferol (vitamin D3) 50 mcg PO DAILY furosemide 40 mg PO SUTUTHSA@0900 glipizide ER 10 mg PO BID metformin ER 500 mg PO BEDTIME metolazone 2.5 mg PO SA@0900 [id number]-xvrsfstr-itafxo 1 tab PO DAILY oxycodone-acetaminophen 5-325 mg 1 tab PO 5XD PRN pen needle, diabetic As directed pravastatin 80 mg PO BEDTIME sulfamethoxazole-trimethoprim 800-160 mg 1 tab PO BID tamsulosin 0.4 mg PO DAILY@1700 warfarin 6 mg See Protocol PO DAILY@1800 warfarin 4 mg See Protocol PO DAILY Nursing Note INR: 2.5 in therapeutic range Had a nuclear stress test - results are pending - he will call with any changes in his meds or plan of care, also going to wound clinic for wound on his foot - enc to keep his feet moving - ankle pumps and kicking legs as much as possible Medications and supplements reviewed No changes in health, diet, medications, or supplements at this time Denies any signs and symptoms of bleeding or bruising or clotting. 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
== END 2023-12-05 08:17 | disposition home or self-care (01) ==
LOC: HO.ACS 08:01
PROVIDERS: PCP Internal Medicine; Visit Provider Internal Medicine
DX: Z79.01 Long term (current) use of anticoagulants (principal)

== ENCOUNTER → 2023-12-05 08:01 | Outpatient (BNVA) | payer MEDICARE, SELFPAY | PROVIDERS: PCP Internal Medicine; Visit Provider Internal Medicine | DX: I48.20 Chronic atrial fibrillation, unspecified (principal); Z79.01 Long term (current) use of anticoagulants; Z51.81 Encounter for therapeutic drug level monitoring | CPT/HCPCS: 85610; 99211 ==

== ENCOUNTER 2023-12-16 09:31 | Outpatient (REF) | payer MEDICARE, SELFPAY ==
[2023-12-16 12:21] LABS: Hematocrit 39.5 % (42.0-52.0); Hemoglobin 13.4 g/dl (14.0-18.0); Mean Corpuscular HGB Conc 33.9 g/dl (31.0-36.0); Mean Corpuscular Hemoglobin 31.5 pg (27.0-33.0); Mean Corpuscular Volume 92.7 fL (80.0-98.0); Mean Platelet Volume 10.5 fL (9.4-12.4); Platelet Count 219 X10*3/uL (160-400); Red Blood Count 4.26 X10*6/uL (4.60-5.80); Red Cell Distribution Width 13.5 % (11.0-16.0); White Blood Count 9.5 X10*3/uL (4.8-10.8)
[2023-12-16 12:32] LABS: INTERNATIONAL NORM RATIO 2.3 (0.9-1.1); Prothrombin Time 26.5 SEC (10.9-12.4)
[2023-12-16 12:56] LABS: Alanine Aminotransferase 13 U/L (0-40); Alkaline Phosphatase 70 U/L (39-117); Anion Gap 12 (12-20); Aspartate Amino Transferase 24 U/L (5-37); Bilirubin Direct 0.2 mg/dL (0.0-0.5); Bilirubin Total 0.6 mg/dL (0.0-1.0); Blood Urea Nitrogen 33 mg/dL (9-16); Calcium 9.8 mg/dL (8.4-10.2); Carbon Dioxide 34 mmol/L (22-29); Chloride 98 mmol/L (96-108); Estimated Glomerular Filt Rate > 60; Glucose Random 149 mg/dL (60-115); Potassium 4.3 mmol/L (3.3-5.1); Sodium 140 mmol/L (135-145); Total Protein 6.9 g/dL (6.5-8.0)
== END 2023-12-16 09:32 | disposition home or self-care (01) ==
LOC: HO.LAB 09:31
PROVIDERS: PCP Internal Medicine; Visit Provider Internal Medicine
DX: I50.812 Chronic right heart failure (principal); I49.3 Ventricular premature depolarization; I50.9 Heart failure, unspecified; I25.10 Atherosclerotic heart disease of native coronary artery without angina pectoris; E11.8 Type 2 diabetes mellitus with unspecified complications; G47.33 Obstructive sleep apnea (adult) (pediatric); R94.39 Abnormal result of other cardiovascular function study; Z79.899 Other long term (current) drug therapy
CPT/HCPCS: 36415; 80048; 80076; 85027; 85610; 99212

== ENCOUNTER 2023-12-16 09:31 | Outpatient (AMB) | payer MEDICARE, SELFPAY ==
[2023-12-16 09:44] VITALS: BP 120/58; PULSE 75; BMI 39.5
--- NOTE | 2023-12-16 09:44 | MHC.OFFVIS ---
Vital Signs 12/16/23 09:44 Height 5 ft 8 in Weight 259 lb 11.272 oz BMI 39.5 BP 120/58 L Blood Pressure Location Lt brachial Position Sitting Pulse 75 Pulse Source Pulse Oximeter Intake Visit Reasons: f/u testing Licsw Required: No Accompanied by: Spouse Allergies Penicillins [PENICILLINS] Allergy (Intermediate, Verified 12/05/23 08:04) rash- STATES BAD RXN CHILD Medication List - Last Reconciled 12/16/23 by Camacho Kirkland MD blood sugar diagnostic As directed carvedilol 12.5 mg PO DAILY cholecalciferol (vitamin D3) 50 mcg PO DAILY furosemide 40 mg PO SUTUTHSA@0900 glipizide ER 10 mg PO BID metformin ER 500 mg PO BEDTIME metolazone 2.5 mg PO SA@0900 [id number]-ulyzjfiu-vcjzxg 1 tab PO DAILY oxycodone-acetaminophen 5-325 mg 1 tab PO 5XD PRN pen needle, diabetic As directed pravastatin 80 mg PO BEDTIME tamsulosin 0.4 mg PO DAILY@1700 warfarin 6 mg See Protocol PO DAILY@1800 warfarin 4 mg See Protocol PO DAILY HPI Comments Details: Leonardo returns for follow-up regarding various cardiac issues. He has a history of chronic atrial fibrillation treated by rate control. He also has chronic right-sided heart failure. Per patient, he has sleep apnea and had CPAP mask more than a decade ago but has not used a long time as it is very inconvenient. He is denying any clear-cut angina but does not do much at baseline. Walks with assistance. Shortness of breath and swelling controlled on diuretics. Recently underwent an echocardiogram, stress testing and Holter. [facility] Medical History Type 2 diabetes mellitus with unspecified complications Essential hypertension Persistent atrial fibrillation Osteoarthritis of left knee Deafness in left ear JUDIE (obstructive sleep apnea) Osteoarthritis Anemia Venous stasis Hard of hearing Obesity GERD (gastroesophageal reflux disease) BPH (benign prostatic hyperplasia) Diabetes Peripheral edema Atrial fibrillation COPD (chronic obstructive pulmonary disease) Chronic a-fib Surgical History Hx of total knee arthroplasty History of amputation of toe Hx of total shoulder replacement Hx of colonoscopy History of bilateral hip replacements Uses cochlear implant Family History Father No problems noted. 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 Review of Systems Const Denies chills, Denies fatigue, Denies fever(s), Denies weight gain and Denies weight loss ENT Denies dizziness Card Denies chest pain, Denies leg edema, Denies lightheadedness, Denies palpitations, Denies dyspnea on exertion, Denies orthopnea and Denies other Resp Denies cough and Denies dyspnea on exertion GI Denies hematochezia and Denies change in stool character Musc Denies abnormal gait, Denies muscle weakness, Denies numbness, Denies radiating pain into limb and Denies tingling Neuro Denies abnormal gait, Denies dizziness, Denies numbness and Denies tingling Endo Denies fatigue and Denies palpitations Physical Exam Vital Signs: Last Vital Signs Pulse 75 12/16/23 09:44 BP 120/58 L 12/16/23 09:44 BMI result Body Mass Index 39.5 Const General: comfortable and no acute distress Orientation/consciousness: patient oriented x3 HEENT Other: Unremarkable Head: Yes normal to inspection Neck Neck: Yes normal visual inspection Chest Chest palpation & inspection: normal inspection of the chest Resp Auscultation: clear to auscultation bilaterally Cardio Palpation: normal PMI Heart sounds: S1 normal heart sound present, S2 normal heart sound present, no gallops, no murmurs and no rubs GI Palpation (GI): Soft to palpation Back/Spine/Pelvis Other: unremarkable Skin General skin exam: no rashes or lesions noted Neuro General: patient oriented x3 Extrem Other: Mild bilateral swelling with some redness. Psych Mental Status: mental status grossly normal Assessment & Plan Assessment & Plan (1) Chronic right heart failure: Code(s): I50.812 - Chronic right heart failure Category: Medical Plan: He is stable on a combination of Lasix/metolazone. In the recent echocardiogram, LVEF is 60-65%. Mildly increased right ventricular size with diminished function. [id number]-gy-[id number] tricuspid regurgitation with dilated IVC/reduced inspiratory collapse. (2) Persistent atrial fibrillation: Code(s): I48.19 - Other persistent atrial fibrillation Category: Medical Plan: In the recent Holter, underlying atrial fibrillation at an average rate of 66/Min. Well controlled. On Coreg. Previously was taking diltiazem and digoxin but stopped. On anticoagulation with warfarin. (3) PVC (premature ventricular contraction): Code(s): I49.3 - Ventricular premature depolarization Category: Medical Plan: In the recent Holter, nonsustained VT for 20 beats-thought to be monomorphic. Preserved LVEF as above and continue beta-blockers. (4) Essential hypertension: Code(s): I10 - Essential (primary) hypertension Category: Medical Plan: Stable on current regimen. (5) Type 2 diabetes mellitus with unspecified complications: Code(s): E11.8 - Type 2 diabetes mellitus with unspecified complications Category: Medical Plan: On glipizide and metformin. Was also on insulin but not anymore. (6) JUDIE (obstructive sleep apnea): Code(s): G47.33 - Obstructive sleep apnea (adult) (pediatric) Category: Medical Plan: Prior sleep study had shown moderately severe obstructive sleep apnea-2016. He does not use CPAP and this has been discussed numerous times. (7) Abnormal myocardial perfusion study: Code(s): R94.39 - Abnormal result of other cardiovascular function study Category: Medical Plan: In the recent stress test, description of mid/distal anterior wall ischemia. Considering his extensive medical history including diabetes, hypertension, dyslipidemia, untreated sleep apnea, obesity, sedentary lifestyle, congestive heart failure, atrial fibrillation, NSVT, we will perform diagnostic catheterization for further assessment. Discussed about this with patient as well as significant other and they agree. They would like to proceed. Plan Total time spent including review of data, counseling, documentation, coordination of care-48 minutes. Orders: Orders Complete Blood Count no Diff Today I49.3 - Ventricular premature depolarization, I50.812 - Chronic right heart failure Basic Metabolic Panel Today I50.9 - Heart failure, unspecified Cardiac Cath LT Diagnostic Today I25.10 - Atherosclerotic heart disease of [place] coronary artery without angina pectoris Prothrombin Time INR Today I25.10 - Atherosclerotic heart disease of [place] coronary artery without angina pectoris Liver Panel Today I25.10 - Atherosclerotic heart disease of [place] coronary artery without angina pectoris Coding Level of Care Code Est Pt Level 5 (90745) Diagnoses Chronic right heart failure I50.812 Persistent atrial fibrillation I48.19 PVC (premature ventricular contraction) I49.3 Essential hypertension I10 Type 2 diabetes mellitus with unspecified complications E11.8 JUDIE (obstructive sleep apnea) G47.33 Abnormal myocardial perfusion study R94.39
== END 2023-12-16 10:18 | disposition home or self-care (01) ==
PROVIDERS: PCP Internal Medicine; Visit Provider Internal Medicine
DX: I50.812 Chronic right heart failure (principal); I48.19 Other persistent atrial fibrillation; I49.3 Ventricular premature depolarization; E11.8 Type 2 diabetes mellitus with unspecified complications; I10 Essential (primary) hypertension; G47.33 Obstructive sleep apnea (adult) (pediatric); R94.39 Abnormal result of other cardiovascular function study
CPT/HCPCS: 99215

== ENCOUNTER 2023-12-18 14:10 | Outpatient (AMB) | payer MEDICARE, SELFPAY ==
--- NOTE | 2023-12-18 14:12 | MHC.OFFVIS ---
Vital Signs 12/18/23 14:28 Height 5 ft 8 in Weight 260 lb BMI 39.5 BP 157/74 H Blood Pressure Location Lt brachial Position Sitting Pulse 81 Intake Visit Reasons: umbilical hernia Intake Note: Patient is seen in office for evaluation and treatment of an umbilical hernia. Pt c/o: was told a hernia by PCP, since colonoscopy last 12/30, admits to straining, feels different in the umbilical area, no imaiging Provider Relations Specialist Required: No Accompanied by: Self / Same As Patient Allergies Penicillins [PENICILLINS] Allergy (Intermediate, Verified 12/18/23 14:13) rash- STATES BAD RXN CHILD Medication List - Last Reconciled 12/18/23 by Leonardo Garza MD blood sugar diagnostic As directed carvedilol 12.5 mg PO DAILY cholecalciferol (vitamin D3) 50 mcg PO DAILY furosemide 40 mg PO SUTUTHSA@0900 glipizide ER 10 mg PO BID metformin ER 500 mg PO BEDTIME metolazone 2.5 mg PO SA@0900 jmnhojkpalfb-osjyhttp-pjputa 1 tab PO DAILY oxycodone-acetaminophen 5-325 mg 1 tab PO 5XD PRN pen needle, diabetic As directed pravastatin 80 mg PO BEDTIME tamsulosin 0.4 mg PO DAILY@1700 warfarin 6 mg See Protocol PO DAILY@1800 warfarin 4 mg See Protocol PO DAILY HPI Comments Details: 73-year-old male patient presenting for evaluation of an umbilical hernia. He reports undergoing a colonoscopy last year and ever since then has had difficulty having a bowel movement. He reports taking Dulcolax which does help but frequently needs to strain to have a bowel movement. Began to note a lump in his umbilicus which has gradually increased in size. He denies previous surgery in this location. He denies any significant pain in the umbilicus. He also denies nausea, vomiting, fever or chills. [facility] Medical History Type 2 diabetes mellitus with unspecified complications Essential hypertension Persistent atrial fibrillation Osteoarthritis of left knee Deafness in left ear JUDIE (obstructive sleep apnea) Osteoarthritis Anemia Venous stasis Hard of hearing Obesity GERD (gastroesophageal reflux disease) BPH (benign prostatic hyperplasia) Diabetes Peripheral edema Atrial fibrillation COPD (chronic obstructive pulmonary disease) Chronic a-fib Surgical History Hx of total knee arthroplasty History of amputation of toe Hx of total shoulder replacement Hx of colonoscopy History of bilateral hip replacements Uses cochlear implant Family History Father No problems noted. 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 Review of Systems Const All systems reviewed & are unremarkable except as noted in HPI and below Denies chills, Denies fever(s), Denies headache(s), Denies poor appetite and Denies weakness ENT Denies headache(s) Card Denies chest pain, Reports irregular heart rhythm and Reports dyspnea Resp Denies cough, Denies excessive phlegm production and Reports dyspnea GI Denies abdominal pain, Denies bloating, Denies change in bowel habits, Reports constipation, Denies heartburn, Denies diarrhea, Denies nausea and Denies vomiting Denies difficulty urinating and Denies urinary frequency Musc Denies back pain, Denies muscle weakness and Denies numbness Skin/Breast Denies changing lesions and Denies unusual bruising Neuro Denies headache(s), Denies numbness, Denies paresthesias and Denies weakness Psych Denies anxiety and Denies depression Obdulio/Lymph Denies lymphadenopathy Physical Exam Vital Signs: Last Vital Signs Pulse 81 12/18/23 14:28 BP 157/74 H 12/18/23 14:28 BMI result Body Mass Index 39.5 Const General: cooperative and no acute distress Nutritional Appearance: well nourished Orientation/consciousness: patient oriented x3 Limitations: no limitations HEENT Head: Yes normocephalic and Yes atraumatic Ears: hearing grossly normal bilaterally Resp Effort & Inspection: normal respiratory effort, no audible wheezes, no cough and no respiratory distress Cardio Rhythm: abnormal rhythm GI Inspection: Yes normal to inspection Palpation (GI): Soft to palpation, nontender, no guarding, not rigid and Hernia present umbilical (3 cm, reducible) Abdomen image: 1. Umbilical hernia, 3 cm, reducible Skin Other: Warm, dry, no rash Neuro General: patient oriented x3 Extrem General: Yes no clubbing, cyanosis or edema Assessment & Plan Assessment & Plan (1) Umbilical hernia: Code(s): K42.9 - Umbilical hernia without obstruction or gangrene Category: Medical Qualifiers: Obstruction and gangrene presence: without obstruction or gangrene Qualified Code(s): K42.9 - Umbilical hernia without obstruction or gangrene Plan 73-year-old male patient presenting with a moderate size umbilical hernia with associated constipation. On examination he was found to have a reducible umbilical hernia which increases in size with Valsalva maneuvers. He is awaiting a cardiac catheterization at the end of December therefore we will wait until after this to schedule a repair of the umbilical hernia. I reviewed the procedure, risks, and alternatives and reviewed the postop care required following the surgery. He gives his consent for the repair of umbilical hernia with mesh. Management of his anticoagulation and timing of the surgery will be discussed with Dr. Kirkland. Coding Level of Care Code New Pt Level 4 (83760) Diagnoses Umbilical hernia without obstruction and without gangrene K42.9 Obstruction and gangrene presence: without obstruction or gangrene
[2023-12-18 14:28] VITALS: BP 157/74; PULSE 81; BMI 39.5
== END 2023-12-18 14:48 | disposition home or self-care (01) ==
PROVIDERS: PCP Internal Medicine; Visit Provider Surgery
DX: K42.9 Umbilical hernia without obstruction or gangrene (principal)
CPT/HCPCS: 99204

== ENCOUNTER → 2023-12-18 14:10 | Outpatient (BNVA) | payer MEDICARE, SELFPAY | PROVIDERS: PCP Internal Medicine; Visit Provider Surgery | DX: K42.9 Umbilical hernia without obstruction or gangrene (principal) | CPT/HCPCS: 99202 ==

== ENCOUNTER 2024-01-02 08:17 | Outpatient (AMB) | payer MEDICARE, SELFPAY ==
[2024-01-02 08:33] LABS: Prothrombin Time Whole Bld POC 26.4 sec (11.1-13.5); ~PT, ~INR - Anti Coag Clinic 2.2 (0.9-1.1)
--- NOTE | 2024-01-02 16:01 | MHC.OFFVISCO ---
Intake Intake Visit Reasons: Anticoagulation Allergies Penicillins [PENICILLINS] Allergy (Intermediate, Verified 01/02/24 08:24) rash- STATES BAD RXN CHILD Medication List - Last Reconciled 01/02/24 by Sayra Adorno RN blood sugar diagnostic As directed carvedilol 12.5 mg PO DAILY cholecalciferol (vitamin D3) 50 mcg PO DAILY enoxaparin (Lovenox) 120 mg (0.8 mL) subcut Q12H furosemide 40 mg PO SUTUTHSA@0900 glipizide ER 10 mg PO BID metformin ER 500 mg PO BEDTIME metolazone 2.5 mg PO SA@0900 mnqkmzloocsq-dbxoaksv-fxsobo 1 tab PO DAILY oxycodone-acetaminophen 5-325 mg 1 tab PO 5XD PRN pen needle, diabetic As directed pravastatin 80 mg PO BEDTIME tamsulosin 0.4 mg PO DAILY@1700 warfarin 6 mg See Protocol PO DAILY@1800 warfarin 4 mg See Protocol PO DAILY Nursing Note INR: 2.2 in therapeutic range Medications and supplements reviewed Cardiac Cath 01/08/24 holding warfarin x 4 days and lovenox bridge Denies any signs and symptoms of bleeding or bruising or clotting. Bleeding, bruising, clotting discussed Nutritional guidance given Dose: 6mg daily usual dose the hold x 4 days lovenox per md F/U INR: 01/12 24 post procedure lovenox warfarin bridge given with pt verbal understanding Patient verbalizes understanding of instructions given Anti-Coag Initial Assessment Social Hx Patient Tobacco Use Status: Former Tobacco user alcohol intake: never Alcohol intake frequency: former alcohol drinker Coding Level of Care Code Est Patient Level 1 Diagnoses Current use of anticoagulant therapy Z79.01 Assessment & Plan Assessment & Plan (1) Current use of anticoagulant therapy: 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
== END 2024-01-02 16:11 | disposition home or self-care (01) ==
LOC: HO.ACS 08:17
PROVIDERS: PCP Internal Medicine; Visit Provider Internal Medicine
DX: Z79.01 Long term (current) use of anticoagulants (principal)

== ENCOUNTER → 2024-01-02 08:17 | Outpatient (BNVA) | payer MEDICARE, SELFPAY | PROVIDERS: PCP Internal Medicine; Visit Provider Internal Medicine | DX: I48.20 Chronic atrial fibrillation, unspecified (principal); Z79.01 Long term (current) use of anticoagulants; Z51.81 Encounter for therapeutic drug level monitoring | CPT/HCPCS: 85610; 99211 ==

== ENCOUNTER → 2024-01-08 23:59 | Outpatient (BNV) | payer MEDICARE, SELFPAY | PROVIDERS: PCP Internal Medicine; Visit Provider Internal Medicine Cardiovascular Disease | DX: R93.1 Abnormal findings on diagnostic imaging of heart and coronary circulation (principal) | CPT/HCPCS: 93458; 99152 ==

== ENCOUNTER 2024-01-13 07:22 | Outpatient (REF) | payer MEDICARE, SELFPAY ==
[2024-01-13 07:48] LABS: MANUAL DIFF FLAG NO
[2024-01-13 08:10] LABS: Basophils Percent Auto 0.4 % (0-2); Eosinophils Absolute Auto 0.3 X10*3/uL (0.0-0.4); Eosinophils Percent Auto 2.8 % (0-4); Hematocrit 39.4 % (42.0-52.0); Hemoglobin 13.3 g/dl (14.0-18.0); Imm Gran Abs Auto 0.13 X10*3/uL (0.00-0.03); Imm Gran Pct Auto 1.2 % (0.0-0.4); Lymphocytes Absolute Auto 1.6 X10*3/uL (1.2-4.9); Lymphocytes Percent Auto 14.5 % (20-40); Mean Corpuscular HGB Conc 33.8 g/dl (31.0-36.0); Mean Corpuscular Hemoglobin 31.8 pg (27.0-33.0); Mean Corpuscular Volume 94.3 fL (80.0-98.0); Monocytes Absolute Auto 1.2 X10*3/uL (0.1-1.2); Monocytes Percent Auto 10.5 % (2-11); Neutrophils Absolute Auto 7.7 x10*3/uL (2.0-8.3); Neutrophils Percent Auto 70.6 % (45-73); Platelet Count 221 X10*3/uL (160-400); Red Blood Count 4.18 X10*6/uL (4.60-5.80); Red Cell Distribution Width 13.2 % (11.0-16.0); White Blood Count 10.9 X10*3/uL (4.8-10.8)
[2024-01-13 08:19] LABS: Estimated Average Glucose 163 mg/dL; Hemoglobin A1C 197.2634 umol/L; Hemoglobin A1c % 7.3 % (<6.0)
[2024-01-13 08:24] LABS: Appearance Urine Clear; Color Urine Yellow; Glucose Urine UA Negative (Negative); Leukocyte Esterase Urine Small (1+) (Negative); Nitrite Urine Negative (Negative); Specific Gravity - Urine 1.015 (1.005-1.025); UMIC TRIGGER UA YES; Urine Blood Negative (Negative); Urine Ketones Negative (Negative); Urine Protein Negative (Neg-Trace)
[2024-01-13 08:40] LABS: Bacteria Urine None Seen (None Seen); Hyaline Casts Urine 0-2 /LPF (0-2); RBC Urine 0-2 /HPF (0-2); Squamous Epithelial Cell Urine 0-2 /HPF (0-2); WBC Urine 0-5 /HPF (0-5)
[2024-01-13 08:57] LABS: Alanine Aminotransferase 25 U/L (0-40); Albumin Level 3.9 g/dL (3.5-5.0); Alkaline Phosphatase 57 U/L (39-117); Anion Gap 15 (12-20); Aspartate Amino Transferase 39 U/L (5-37); Bilirubin Total 0.8 mg/dL (0.0-1.0); Blood Urea Nitrogen 27 mg/dL (9-16); Carbon Dioxide 31 mmol/L (22-29); Chloride 97 mmol/L (96-108); Cholesterol 154 mg/dL (<200); Estimated Glomerular Filt Rate > 60; Glucose Fasting 172 mg/dL (60-99); HDL Cholesterol 35 mg/dL (>40); LDL Cholesterol Calculated 89 mg/dL (<100); Potassium 4.3 mmol/L (3.3-5.1); Sodium 139 mmol/L (135-145); Total Protein 7.3 g/dL (6.5-8.0); Triglycerides 150 mg/dL (<150)
[2024-01-13 09:08] LABS: Prostate Specific Antigen 1.09 ng/mL (<0.05-4.0)
[2024-01-13 09:32] LABS: Creatinine Urine 92.91 mg/dL; Microalbum/Creatinine Ratio Ur 7.5 ug/mg cr (<30)
== END 2024-01-13 07:23 | disposition home or self-care (01) ==
LOC: HO.LAB 07:22
PROVIDERS: PCP Internal Medicine; Visit Provider Internal Medicine
DX: I48.91 Unspecified atrial fibrillation (principal); E11.9 Type 2 diabetes mellitus without complications; N40.0 Benign prostatic hyperplasia without lower urinary tract symptoms; E78.00 Pure hypercholesterolemia, unspecified; Z12.5 Encounter for screening for malignant neoplasm of prostate
CPT/HCPCS: 36415; 80053; 80061; 81001; 82043; 82570; 83036; 84153; 85025; 85610; 99211

== ENCOUNTER 2024-01-13 08:02 | Outpatient (AMB) | payer MEDICARE, SELFPAY ==
[2024-01-13 08:29] LABS: Prothrombin Time Whole Bld POC 17.5 sec (11.1-13.5); ~PT, ~INR - Anti Coag Clinic 1.5 (0.9-1.1)
--- NOTE | 2024-01-13 08:40 | MHC.OFFVISCO ---
Intake Intake Visit Reasons: Anticoagulation Allergies Penicillins [PENICILLINS] Allergy (Intermediate, Verified 01/13/24 08:25) rash- STATES BAD RXN CHILD Medication List - Last Reconciled 01/13/24 by Hanny Paulino RN blood sugar diagnostic As directed carvedilol 12.5 mg PO DAILY cholecalciferol (vitamin D3) 50 mcg PO DAILY enoxaparin (Lovenox) 120 mg See Protocol subcut Q12H furosemide 40 mg PO SUTUTHSA@0900 glipizide ER 10 mg PO BID metformin ER 500 mg PO BEDTIME metolazone 2.5 mg PO SA@0900 dpwgghwtauis-qfpnrkfx-dhmkdr 1 tab PO DAILY oxycodone-acetaminophen 5-325 mg 1 tab PO 5XD PRN pen needle, diabetic As directed pravastatin 80 mg PO BEDTIME tamsulosin 0.4 mg PO DAILY@1700 warfarin 6 mg See Protocol PO DAILY@1800 warfarin 4 mg See Protocol PO DAILY Nursing Note PT.STATES THAT HE RESTARTED WARFARIN DAY OF CARDIAC CATH ON 01/07.HE DID NOT RESUME LOVENOX. PT.STATES THAT PROCEDURE WENT WELL AND WITHOUT INCIDENT. HE DENIES ANY CP,SOB OR SX OF BLEEDING. NO MED CHANGES. BOOST WARFARIN TO 8MGM 2 DAYS AND FOLLOW-UP ONM 01/18. NO GREENS 2-3 BDAYS. WILL INCREASE REDS/FRUITS. SMALL AMT.CRANBERRY OK GOOD UNDERSTANDFING OF DOSING INSTR.BY PT.AND WIFEL. Anti-Coag Initial Assessment Social Hx Patient Tobacco Use Status: Former Tobacco user alcohol intake: never Alcohol intake frequency: former alcohol drinker Coding Level of Care Code Est Patient Level 1 Diagnoses Current use of anticoagulant therapy Z79.01 Assessment & Plan Assessment & Plan (1) Current use of anticoagulant therapy: Code(s): Z79.01 - long-term (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
== END 2024-01-13 08:51 | disposition home or self-care (01) ==
LOC: HO.ACS 08:02
PROVIDERS: PCP Internal Medicine; Visit Provider Internal Medicine
DX: Z79.01 Long term (current) use of anticoagulants (principal)

== ENCOUNTER 2024-01-19 09:10 | Outpatient (AMB) | payer MEDICARE, SELFPAY ==
[2024-01-19 09:44] LABS: Prothrombin Time Whole Bld POC 26.3 sec (11.1-13.5); ~PT, ~INR - Anti Coag Clinic 2.2 (0.9-1.1)
--- NOTE | 2024-01-19 09:47 | MHC.OFFVISCO ---
Intake Intake Visit Reasons: Anticoagulation Allergies Penicillins [PENICILLINS] Allergy (Intermediate, Verified 01/19/24 09:35) rash- STATES BAD RXN CHILD Medication List - Last Reconciled 01/19/24 by Edith Crowder RN blood sugar diagnostic As directed carvedilol 12.5 mg PO DAILY cholecalciferol (vitamin D3) 50 mcg PO DAILY furosemide 40 mg PO SUTUTHSA@0900 glipizide ER 10 mg PO BID metformin ER 500 mg PO BEDTIME metolazone 2.5 mg PO SA@0900 [id number]-iuvcbily-kjgbpa 1 tab PO DAILY oxycodone-acetaminophen 5-325 mg 1 tab PO 5XD PRN pen needle, diabetic As directed pravastatin 80 mg PO BEDTIME tamsulosin 0.4 mg PO DAILY@1700 warfarin 6 mg See Protocol PO DAILY@1800 warfarin 4 mg See Protocol PO DAILY Nursing Note To ACS via W/C, accomp by spouse S/P cardiac cath of 01/07 Medications and supplements reviewed No new changes in health, diet, medications, or supplements, HAD CRITICAL LOW INR LAST VISIT WITH SUBSEQUENT DOSE INCREASE X 2 DAYS Denies any signs and symptoms of bleeding or bruising or clotting. CARDIAC CATH SITE RIGHT WRIST BENIGN Bleeding, bruising, clotting discussed INR: 2.2 now in therapeutic range Dose: continue usual 6mg daily balance diet, no heavy duty greens today, start to decrease reds eat more usual diet F/U INR: 10 days Patient and spouse verbalizes understanding of instructions given Anti-Coag Initial Assessment Social Hx Patient Tobacco Use Status: Former Tobacco user alcohol intake: never Alcohol intake frequency: former alcohol drinker Coding Level of Care Code Est Patient Level 1 Diagnoses Current use of anticoagulant therapy Z79.01 Time Spent (min) 15 Assessment & Plan Assessment & Plan (1) Current use of anticoagulant therapy: 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
== END 2024-01-19 09:55 | disposition home or self-care (01) ==
LOC: HO.ACS 09:10
PROVIDERS: PCP Internal Medicine; Visit Provider Internal Medicine
DX: Z79.01 Long term (current) use of anticoagulants (principal)

== ENCOUNTER → 2024-01-19 09:10 | Outpatient (BNVA) | payer MEDICARE, SELFPAY | PROVIDERS: PCP Internal Medicine; Visit Provider Internal Medicine | DX: I48.20 Chronic atrial fibrillation, unspecified (principal); Z79.01 Long term (current) use of anticoagulants; Z51.81 Encounter for therapeutic drug level monitoring | CPT/HCPCS: 85610; 99211 ==

== ENCOUNTER 2024-01-21 12:46 | Outpatient (AMB) | payer MEDICARE, SELFPAY ==
[2024-01-21 13:13] VITALS: BP 116/70; PULSE 78; BMI 38.9
--- NOTE | 2024-01-21 13:13 | MHC.OFFVIS ---
Vital Signs 01/21/24 13:13 Height 5 ft 8 in Weight 255 lb 11.779 oz BMI 38.9 BP 116/70 Blood Pressure Location Lt brachial Position Sitting Pulse 78 Pulse Source Pulse Oximeter Intake Visit Reasons: *2 wk s/p cath Allergies Penicillins [PENICILLINS] Allergy (Intermediate, Verified 01/19/24 09:35) rash- STATES BAD RXN CHILD Medication List - Last Reconciled 01/21/24 by Camacho Kirkland MD blood sugar diagnostic As directed carvedilol 12.5 mg PO DAILY cholecalciferol (vitamin D3) 50 mcg PO DAILY furosemide 40 mg PO SUTUTHSA@0900 glipizide ER 10 mg PO BID metformin ER 500 mg PO BEDTIME metolazone 2.5 mg PO SA@0900 [id number]-tmgzmsfw-vmgrku 1 tab PO DAILY oxycodone-acetaminophen 5-325 mg 1 tab PO 5XD PRN pen needle, diabetic As directed pravastatin 80 mg PO BEDTIME tamsulosin 0.4 mg PO DAILY@1700 warfarin 6 mg See Protocol PO DAILY@1800 warfarin 4 mg See Protocol PO DAILY HPI Comments Details: Leonardo returns for follow-up regarding various cardiac issues. He has a history of chronic atrial fibrillation treated by rate control. He also has chronic right-sided heart failure. Per patient, he has sleep apnea and had CPAP mask more than a decade ago but has not used a long time as it is very inconvenient. Recently, he has completed an extensive workup including echocardiogram, stress test Holter as well as cardiac catheterization. Overall, feels okay. No new complaints. Everything is at baseline. [facility] Medical History Type 2 diabetes mellitus with unspecified complications Essential hypertension Persistent atrial fibrillation Osteoarthritis of left knee Deafness in left ear JUDIE (obstructive sleep apnea) Osteoarthritis Anemia Venous stasis Hard of hearing Obesity GERD (gastroesophageal reflux disease) BPH (benign prostatic hyperplasia) Diabetes Peripheral edema Atrial fibrillation COPD (chronic obstructive pulmonary disease) Chronic a-fib Surgical History Hx of total knee arthroplasty History of amputation of toe Hx of total shoulder replacement Hx of colonoscopy History of bilateral hip replacements Uses cochlear implant Family History Father No problems noted. 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 Review of Systems Const Denies weakness ENT Denies dizziness Card Denies chest pain, Denies chest pain with activity, Denies syncope, Denies rapid heart rate, Denies pedal edema, Denies edema, Denies leg edema, Denies lightheadedness, Denies palpitations, Denies dyspnea, Denies dyspnea on exertion and Denies orthopnea Resp Denies cough, Denies dyspnea and Denies dyspnea on exertion GI Denies hematochezia and Denies change in stool character Musc Denies abnormal gait, Denies muscle cramps, Denies muscle weakness, Denies numbness, Denies radiating pain into limb and Denies tingling Neuro Denies abnormal gait, Denies dizziness, Denies syncope, Denies numbness, Denies tingling and Denies weakness Endo Denies palpitations Physical Exam Vital Signs: Last Vital Signs Pulse 78 01/21/24 13:13 BP 116/70 01/21/24 13:13 BMI result Body Mass Index 38.9 Const General: comfortable and no acute distress Orientation/consciousness: patient oriented x3 HEENT Other: Unremarkable Head: Yes normal to inspection Neck Neck: Yes normal visual inspection Chest Chest palpation & inspection: normal inspection of the chest Resp Auscultation: clear to auscultation bilaterally Cardio Palpation: normal PMI Heart sounds: S1 normal heart sound present, S2 normal heart sound present, no gallops, no murmurs and no rubs GI Palpation (GI): Soft to palpation Back/Spine/Pelvis Other: unremarkable Skin General skin exam: no rashes or lesions noted Neuro General: patient oriented x3 Extrem Other: Mild bilateral swelling with some redness. Psych Mental Status: mental status grossly normal Assessment & Plan Assessment & Plan (1) Chronic right heart failure: Code(s): I50.812 - Chronic right heart failure Category: Medical Plan: He is stable on a combination of Lasix/metolazone. In the recent echocardiogram, LVEF is 60-65%. Mildly increased right ventricular size with diminished function. Pyrf-de-cxhpwhah tricuspid regurgitation with dilated IVC/reduced inspiratory collapse. (2) Persistent atrial fibrillation: Code(s): I48.19 - Other persistent atrial fibrillation Category: Medical Plan: In the recent Holter, underlying atrial fibrillation at an average rate of 66/Min. Well controlled. On Coreg. Previously was taking diltiazem and digoxin but stopped. On anticoagulation with warfarin. (3) PVC (premature ventricular contraction): Code(s): I49.3 - Ventricular premature depolarization Category: Medical Plan: In the recent Holter, nonsustained VT for 20 beats-thought to be monomorphic. Preserved LVEF as above and continue beta-blockers. We can recheck in about 6 months' time. (4) Essential hypertension: Code(s): I10 - Essential (primary) hypertension Category: Medical Plan: Stable. No changes. (5) Type 2 diabetes mellitus with unspecified complications: Code(s): E11.8 - Type 2 diabetes mellitus with unspecified complications Category: Medical Plan: On glipizide and metformin. Was also on insulin but not anymore. (6) JUDIE (obstructive sleep apnea): Code(s): G47.33 - Obstructive sleep apnea (adult) (pediatric) Category: Medical Plan: Prior sleep study had shown moderately severe obstructive sleep apnea-2016. He does not use CPAP and this has been discussed numerous times. (7) Abnormal myocardial perfusion study: Code(s): R94.39 - Abnormal result of other cardiovascular function study Category: Medical Plan: In the recent stress test, description of mid/distal anterior wall ischemia. However, cardiac catheterization shows minimal irregularities in the LAD but otherwise normal coronary arteries. Normal LVEDP. (8) Preoperative cardiovascular examination: Code(s): Z01.810 - Encounter for preprocedural cardiovascular examination Category: Medical Plan: Plans for umbilical hernia surgery. May proceed. Intermediate cardiac risk. With regard to anticoagulation, he states that Lovenox was very cumbersome and caused bruising. Hence may proceed with just minimal interruption of warfarin, possibly starting 3-4 days before surgery and resuming as soon as able. Orders: Orders ECG 3 day holter monitor 6 Months I48.19 - Other persistent atrial fibrillation Coding Level of Care Code Est Pt Level 4 (58403) Diagnoses Chronic right heart failure I50.812 Persistent atrial fibrillation I48.19 PVC (premature ventricular contraction) I49.3 Essential hypertension I10 Type 2 diabetes mellitus with unspecified complications E11.8 JUDIE (obstructive sleep apnea) G47.33 Abnormal myocardial perfusion study R94.39 Preoperative cardiovascular examination Z01.810
== END 2024-01-21 13:28 | disposition home or self-care (01) ==
PROVIDERS: PCP Internal Medicine; Visit Provider Internal Medicine
DX: I50.812 Chronic right heart failure (principal); I48.19 Other persistent atrial fibrillation; I49.3 Ventricular premature depolarization; I10 Essential (primary) hypertension; E11.8 Type 2 diabetes mellitus with unspecified complications; G47.33 Obstructive sleep apnea (adult) (pediatric); R94.39 Abnormal result of other cardiovascular function study; Z01.810 Encounter for preprocedural cardiovascular examination
CPT/HCPCS: 99214

== ENCOUNTER → 2024-01-21 12:46 | Outpatient (BNVA) | payer MEDICARE, SELFPAY | PROVIDERS: PCP Internal Medicine; Visit Provider Internal Medicine | DX: Z01.810 Encounter for preprocedural cardiovascular examination (principal); I11.0 Hypertensive heart disease with heart failure; I50.812 Chronic right heart failure; I48.19 Other persistent atrial fibrillation; I49.3 Ventricular premature depolarization; G47.30 Sleep apnea, unspecified; E11.9 Type 2 diabetes mellitus without complications; G47.33 Obstructive sleep apnea (adult) (pediatric); R94.39 Abnormal result of other cardiovascular function study; Z99.89 Dependence on other enabling machines and devices | CPT/HCPCS: 99212 ==

== ENCOUNTER 2024-01-30 08:05 | Outpatient (AMB) | payer MEDICARE, SELFPAY ==
[2024-01-30 08:23] LABS: Prothrombin Time Whole Bld POC 33.3 sec (11.1-13.5); ~PT, ~INR - Anti Coag Clinic 2.8 (0.9-1.1)
--- NOTE | 2024-01-30 08:30 | MHC.OFFVISCO ---
Intake Intake Visit Reasons: Anticoagulation Allergies Penicillins [PENICILLINS] Allergy (Intermediate, Verified 01/30/24 08:16) rash- STATES BAD RXN CHILD Medication List - Last Reconciled 01/30/24 by Sayra Adorno RN blood sugar diagnostic As directed carvedilol 12.5 mg PO DAILY cholecalciferol (vitamin D3) 50 mcg PO DAILY furosemide 40 mg PO SUTUTHSA@0900 glipizide ER 10 mg PO BID metformin ER 500 mg PO BEDTIME metolazone 2.5 mg PO SA@0900 acubkwvsavna-twremkoe-sespxb 1 tab PO DAILY oxycodone-acetaminophen 5-325 mg 1 tab PO 5XD PRN pen needle, diabetic As directed pravastatin 80 mg PO BEDTIME tamsulosin 0.4 mg PO DAILY@1700 warfarin 6 mg See Protocol PO DAILY@1800 warfarin 4 mg See Protocol PO DAILY Nursing Note pt came with today- his legs and feet are painful to walk this a chronic condition. INR: 2.8 in therapeutic range Medications and supplements reviewed Pt had cardiac cath - no blockages found, tolerated procedure, no complications, Pt to have umbilical hernia repair here at [facility] [place] [facility] with Dr Garza / cleared by cardiology Dr Kirkland - will consult with his MDs if he requires lovenox for this procedure. Pt states he was instructed to hold warfarin x 4 days prior the procedure - but did not receive any notification if he had to bridge with lovenox. Pt will have INR chk prior to hold 02/12/24 ( he is unable to attend 02/13/24) Has preop appt next week Denies any signs and symptoms of bleeding or bruising or clotting. Bleeding, bruising, clotting discussed Nutritional guidance given - review food list especially during the holidays, cont to eat a mix o fruits and vegetables Dose: cont usual dos of 6mg daily F/U INR: 02/12/24 for INR chk and further instructions for pre and post procedure Patient and verbalize understanding of instructions given Anti-Coag Initial Assessment Social Hx Patient Tobacco Use Status: Former Tobacco user alcohol intake: never Alcohol intake frequency: former alcohol drinker Coding Level of Care Code Est Patient Level 1 Diagnoses Current use of anticoagulant therapy Z79.01 Assessment & Plan Assessment & Plan (1) Current use of anticoagulant therapy: Code(s): Z79.01 - shelter (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
== END 2024-01-30 08:39 | disposition home or self-care (01) ==
LOC: HO.ACS 08:05
PROVIDERS: PCP Internal Medicine; Visit Provider Internal Medicine
DX: Z79.01 Long term (current) use of anticoagulants (principal)

== ENCOUNTER → 2024-01-30 08:05 | Outpatient (BNVA) | payer MEDICARE, SELFPAY | PROVIDERS: PCP Internal Medicine; Visit Provider Internal Medicine | DX: I48.20 Chronic atrial fibrillation, unspecified (principal); Z79.01 Long term (current) use of anticoagulants; Z51.81 Encounter for therapeutic drug level monitoring | CPT/HCPCS: 85610; 99211 ==

== ENCOUNTER 2024-02-12 09:44 | Outpatient (AMB) | payer MEDICARE, SELFPAY ==
[2024-02-12 09:55] LABS: Prothrombin Time Whole Bld POC 37.8 sec (11.1-13.5); ~PT, ~INR - Anti Coag Clinic 3.2 (0.9-1.1)
--- NOTE | 2024-02-12 10:06 | MHC.OFFVISCO ---
Intake Intake Visit Reasons: Anticoagulation Allergies Penicillins [PENICILLINS] Allergy (Intermediate, Verified 02/12/24 09:49) rash- STATES BAD RXN CHILD Medication List - Last Reconciled 02/12/24 by Sayra Adorno RN blood sugar diagnostic As directed carvedilol 12.5 mg PO DAILY cholecalciferol (vitamin D3) 50 mcg PO DAILY furosemide 40 mg PO SUTUTHSA@0900 furosemide 80 mg PO .MONWEDFRI@0900 glipizide ER 10 mg PO BID metformin 1,000 mg PO .QAM metformin ER 500 mg PO .@1400 metolazone 2.5 mg PO SA@0900 bhgwbelvndcs-enrbxels-otnfss 1 tab PO DAILY oxycodone-acetaminophen 5-325 mg 1 tab PO 5XD PRN pen needle, diabetic As directed pravastatin 80 mg PO BEDTIME tamsulosin 0.4 mg PO DAILY@1700 warfarin 6 mg See Protocol PO DAILY@1800 warfarin 4 mg See Protocol PO DAILY@1800 Nursing Note INR: 3.2 ALMOST therapeutic range Medications and supplements reviewed * will be having umbilical hernia repair 02/18/24 *holding warfarin x 4 days *resume date per surgeon orders *if able to resume on surgical date start 6mg then 8mg x 2 days then resume usual dose 6mg daily * No lovenox per pt request- mds are aware Denies any signs and symptoms of bleeding or bruising or clotting. Bleeding, bruising, clotting discussed Nutritional guidance given - a serving of greens today - then after procedure avoid greens x 4 days so INR can come up quicker and eat orange and reds to help boost the INR Dose: keep same then hold x 4 days per md orders then resume date per md orders- then 8mg x 2 days then 6mg daily, f/u INR 02/27/24 F/U INR: 02/27/24- per pt request Patient verbalizes understanding of instructions given Anti-Coag Initial Assessment Social Hx Patient Tobacco Use Status: Former Tobacco user Tobacco use type: Cigarette alcohol intake: never Alcohol intake frequency: does not drink Coding Level of Care Code Est Patient Level 1 Diagnoses Current use of anticoagulant therapy Z79.01 Results AMB INR Fingerstick AMB INR Fingerstick 3.2 Last Edit by Sayra Adorno RN on 02/12/24 09:56 manual entry Assessment & Plan Assessment & Plan (1) Current use of anticoagulant therapy: Code(s): Z79.01 - group home (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
--- OUTSIDE RECORDS SUMMARY | 2024-02-18 01:02 | XMS_ITS ---
Author Organization [facility] Address [address] [place] [id number] Care Team Providers Care Rn Circulating Name Role Phone Darien Bruner MD Primary Care Provider Unavaila Ronel Reaves Unavailable [phone] REASON FOR VISIT r/s 02/22 Encounters Encounter Location Date Provider Diagnosis [address] [address] 02/12/2024 Ronel Leon Plan Of Treatment Next Appt Details Provider Name:Ronel A Edward , 04/19/2024 10:15:00 AM, [address] [place], [address], Progress Notes * Leonardo GRIFFINDOB:1950 (73 yo M)Acc No.[id number]:02/12/2024 Patient:?Leonardo GRIFFIN :1950???Age:73 Y???Sex:Male Address:[address] [place] [address], [id number] * true * Date:? Generated for Printi ng/Famargog/eTransmitting on:?02/18/2024 01:02 AM EST
--- OUTSIDE RECORDS SUMMARY | 2024-02-18 01:02 | XMS_ITS | Data Portability ---
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 It is a stable in size on my exam. His facial nerve is intact. Although he reports a symptom of stiff in the neck I believe this is more attributable to the findings on the CT cervical spine rather than the benign stable left parotid tumor. Discussed surgical intervention with parotidectomy may be appropriate if there is rapid change in size, cosmetic deformity, pain at that site related to infection or displacement of other structures. At this time we both agreed no surgical intervention [email or web address] Not available 08/14/2023 10:14:57 Plan of Treatment Reminders Order Date Submit Date Provider Last Modified By Organization Details Last Modified Time Details Appointments None record ed. Lab None record ed. Referral None record ed. Procedures None record ed. Surgeries None record ed. Imaging None record ed. Medication Orders None record ed. Patient TargetsNo targets recorded. Patient InstructionsNo instructions recorded. Reason for Referral None Reported. Results Created Date Observation Date Name Description Value Unit Range Abnormal Flag Note LastModifiedBy Organization Detail LastModifiedTime 10/28/19 24 04/27/2021 imagi ng/di agnos tic resul t No observ ation record ed. [email or web address] Not Available 21:36:47 10/28/19 24 06/01/2021 imagi ng/di agnos tic resul t No observ ation record ed. [email or web address] Not Available 21:37:06 Result Notes None recorded. Problems Name Problem SNOMED Code Status Onset Date Resolution Date Notes Provider Name and Address Organization Details Recorded Time Gastroeso phageal reflux disease without esophagit is 047079874 Active 2014 Gastro-eso phageal reflux disease without esophagiti s; Note: Date Diagnosed: 01/16/2015 10:07 AM (K21.9) Not Available [facility] 4 02:31:43 Sensorine ural hearing loss of bilateral ears 877240127 Active 2013 SNHL Bilaterall y; CMS Risk: low risk Note: Date Diagnosed: 12/10/2013 9:18 AM (389.18) Not Available [facility] 4 02:31:47 Deviated nasal septum 347227676 Active 2014 Septal Deviation; Note: Date Diagnosed: 08/05/2014 11:13 AM (470) ; Start Date : 08/05/2014 Deviated nasal septum; Note: Date Diagnosed: 01/16/2015 9:52 AM (J34.2) Not Available [facility] 4 02:31:48 Bilateral sensory hearing loss 818532956 Active 2013 Hearing loss: Sensory hearing loss, bilateral; Location: left Note: Date Diagnosed: 12/16/2013 11:26 AM (389.11) Not Available [facility] 4 02:31:45 Simple obesity 698419317 Active 2016 Other obesity due to excess calories; Note: Date Diagnosed: 10/09/2016 1:21 PM (E66.09) Not Available [facility] 4 02:31:33 Postopera tive follow-up visit Active 2013 Post op; Note: Date Diagnosed: 12/16/2013 11:26 AM (V67.00) Not Available [facility] 4 02:31:42 Hypertrop hy of nasal turbinate s 65177957 Active 2014 Nasal turbinate hypertroph y; Note: Date Diagnosed: 02/16/2014 12:31 PM (478.0) ; Start Date : 02/16/2014 Hypertrop hy of nasal turbinates ; Note: Date Diagnosed: 01/16/2015 9:52 AM (J34.3) Not Available [facility] 4 02:31:37 Obstructi ve sleep apnea syndrome 27117911 Active 2015 Obstructiv e sleep apnea (adult) (pediatric ); Note: Date Diagnosed: 05/04/2015 4:55 PM (G47.33) Not Available [facility] 4 02:31:48 Allergic rhinitis caused by pollen 31911661 Active 2013 Vasomotor rhinitis; Note: Date Diagnosed: 01/10/2014 2:23 PM (477.0) Not Available [facility] 4 02:31:46 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 Procedures Surgical History None recorded. Imaging Results Imaging Date Name Status [facility]Modified by [facility] Details LastModified Time 04/27/2021 imaging/diag nostic result completed Information not available 10/28/2023 21:36:47 06/01/2021 imaging/diag nostic result completed Information not available 10/28/2023 21:37:06 Procedure Notes None recorded. Medical Equipment None Reported. Allergies Allergen ID Allergen Name Allergen Category Reaction Reaction Severity Criticality Documentation Date Start Date Code Code System Note Provider Name and Address Organization Details Recorded Time 56134 Medicinal product containin g penicilli n and acting as antibacte rial agent (product) medicatio n other Not available Not available 07/22/2023 24428 05 SNOMED React ion: Unkno wn; Not Available [facility] 4 00:23:22 Medications Name Sig Start Date Stop Date Status Note LastModified by Organization Details LastModified Time furosemid e 40 mg tablet active Medicati on ID: [id number] B rand Name: furosemi de Send Method: E-Prescr ibed Sub s Allowed: subs OK Medic ationGen ericName : furosemi de Not Available Not Available Not Available metolazon e 2.5 mg tablet active Not Available Not Available Not Available metformin 500 mg tablet 05/11 completed Medicati on ID: [id number] Br and Name: metformi n Send Method: E-Prescr ibed Sub s Allowed: subs OK Medic ationGen ericName : metformi n Not Available Not Available Not Available carvedilo l 12.5 mg tablet active Not Available Not Available Not Available diltiazem CD 240 mg capsule,e xtended release 24 hr active Not Available Not Available Not Available glipizide ER 5 mg tablet, extended release 24 hr active Not Available Not Available Not Available Lantus U-100 Insulin 100 unit/mL subcutane ous solution 05/11 completed Medicati on ID: [id number] D uration Value: 28 Brand Name: Lantus U-100 Insulin Send Method: E-Prescr ibed Sub s Allowed: subs OK Speci al Instruct ion: INJECT 10 UNITS SUBCUTAN EOUSLY AT BEDTIME DISCAR D VIAL AFTER 28 DAYS Medic ationGen ericName : Lantus U-100 Insulin Not Available Not Available Not Available digoxin 250 mcg (0.25 mg) tablet 05/11 completed Medicati on ID: [id number] Br and Name: digoxin Send Method: E-Prescr ibed Sub s Allowed: subs OK Medic ationGen ericName : digoxin Not Available Not Available Not Available omeprazol e 40 mg capsule,d elayed release active Medicati on ID: [id number] B rand Name: omeprazo le Send Method: E-Prescr ibed Sub s Allowed: subs OK Medic ationGen ericName : omeprazo le Not Available Not Available Not Available tramadol 50 mg tablet 05/11 completed Medicati on ID: [id number] Br and Name: tramadol Send Method: E-Prescr ibed Sub s Allowed: subs OK Medic ationGen ericName : tramadol Not Available Not Available Not Available warfarin 4 mg tablet active Not Available Not Available Not Available Nexium 20 mg capsule,d elayed release 1 capsule by mouth once a day 05/11 completed Medicati on ID: [id number] Br and Name: Nexium S end Method: E-Prescr ibed Sub s Allowed: subs OK Medic ationGen ericName : Nexium Not Available Not Available Not Available oxycodone -acetamin ophen 5 mg-325 mg tablet 1-2 tablet by mouth active Not Available Not Available No t Available pravastat in 80 mg tablet active Not Available Not Available Not Available tamsulosi n 0.4 mg capsule active Medicati on ID: [id number] B rand Name: tamsulos in Send Method: E-Prescr ibed Sub s Allowed: subs OK Medic ationGen ericName : tamsulos in Not Available Not Available Not Available glipizide ER 2.5 mg tablet, extended release 24 hr 05/11 completed Medicati on ID: [id number] Br and Name: glipizid e Send Method: E-Prescr ibed Sub s Allowed: subs OK Medic ationGen ericName : glipizid e Not Available Not Available Not Available warfarin 2 mg tablet active Medicati on ID: [id number] B rand Name: warfarin Send Method: E-Prescr ibed Sub s Allowed: subs OK Medic ationGen ericName : warfarin Not Available Not Available Not Available fluticaso ne propionat e 50 mcg/actua tion nasal spray,andres pension 05/11 completed Medicati on ID: [id number] D uration Value: 30 Brand Name: fluticas one propiona te Send Method: E-Prescr ibed Sub s Allowed: subs OK Speci al Instruct ion: USE 1 SPRAY IN EACH NOSTRIL TWICE A DAY Medi cationGe nericNam e: fluticas one propiona te Not Available Not Available Not Available metformin ER 500 mg tablet,ex tended release 24 hr active Medicati on ID: [id number] B rand Name: metformi n Send Method: E-Prescr ibed Sub s Allowed: subs OK Medic ationGen ericName : metformi n Not Available Not Available Not Available ipratropi um bromide 21 mcg (0.03 %) nasal spray Inhale 2 spray into both nostrils three times a day as directed 05/11 completed Medicati on ID: [id number] Br and Name: Jessica Send Method: E-Prescr ibed Sub s Allowed: subs OK Medic ationGen ericName : Atrovent Not Available Not Available Not Available BD Ultra-Fin e Mini Pen Needle 31 gauge x 05/23 active Not Available Not Available Not Available Lantus Solostar U-100 Insulin 100 unit/mL (3 mL) subcutane ous pen active Not Available Not Available Not Available Prevnar 13 (PF) 0.5 mL intramusc ular syringe 05/11 completed Medicati on ID: [id number] Dur ation Value: 1 Brand Name: Prevnar 13 (PF) Sen d Method: E-Prescr ibed Sub s Allowed: subs OK Speci al Instruct ion: TO BE ADMINIST ERED BY PHARMACI ST FOR IMMUNIZA TION Med icationG enericNa me: Prevnar 13 (PF) Not Available Not Available Not Available Centrum Silver Ultra Men's 300 mcg-60 mcg-600 mcg-300 mcg tablet 05/11 completed Medicati on ID: [id number] Br and Name: Centrum Silver Ultra Men's Se nd Method: E-Prescr ibed Sub s Allowed: subs OK Medic ationGen ericName : Centrum Silver Ultra Men's Not Available Not Available Not Available Vitals Date Recorded Body height Body mass index (BMI) Body weight Provider Name and Address Organization Details Last Updated DateTime 08/14/2023 172.72 cm 38 kg/m2 462289.09 g Tevin Koch [place] - [facility] 08/14/2023 10:01:01 Social History None recorded. Functional Status None recorded. Mental Status None recorded. Family History Nothing Reported. Medical History No medical history recorded. Past Encounters Encounter ID Performer Location Encounter Start Date Encounter Closed Date Diagnosis/Indication Diagnosis SNOMED-CT Code Diagnosis ICD10 Code [id number] RAMYA ARNDT MD [facility] [address] [place] [address] 08/14/2023 09:50:50 08/14/2023 10:16:30 Benign neoplasm of parotid gland 99997606 D11.0 Health Concerns Section Related Observation LastModified by Organization Detai ls LastModified Time None Recorded Concern Status LastModified by Organization Details LastModified Time None Recorded Advance Directives Directive None Recorded Payers Encounter Date Sequence Insurance Name Policy Number Policy Casarez Covered Member ID Casarez Member ID Guarantor Name 08/14/2023 2 [place] Leonardo Pang [id number] Leonardo Pang 08/14/2023 1 [place] [employer] Leonardo Pang [id number] Leonardo Pang Notes Date Note Type Note Provider Name and Address Organization Details Recorded Time 08/14/2023 text/html left parotid FNA 05/17/21 - warthin tumorct neck w contrast at [place] 04/27/21left parotid 2.8cm mass. compare with prior ct 05/17/15 shows growth from prior 2.1cmsuspects it has increased since he was last seen05/27/2023 CT cervical spine noncontrast at [facility] with no findings of soft tissue abnormality remarked upon by the radiologist. There are signs of advanced changes of cervical spondylosis detailed in the report hx of right neck lipoma removed many years priorleft ear cochlear implant with Dr Demetrio ARNDT MD [address] [place] [address], [place], [address], [facility] - [facility] 08/14/2023 10:15:11
--- OUTSIDE RECORDS SUMMARY | 2024-02-18 01:02 | XMS_ITS ---
Author Organization [employer] [facility] Address [address] [place] [address] Care Team Providers Care Cork Compounder Name Role Phone Darien Bruner MD Primary Care Provider Unavaila ble Black, Ronel Unavailable [phone] Allergies Allergen (clinical drug ingredient) Drug/Non Drug Allergy documented on EMR Reaction Allergy Type Onset Date Status amoxicillin Amoxicillin Unknown Drug Allergy Act anneliese Penicillin Unknown Drug Allergy Active REASON FOR VISIT At Risk Footcare, open sore Medications Medication SIG (Take, Route, Frequency, Duration) Notes Start Date End Date Status Doxycycline Hyclate Not-Taking zzzExtra Depth Orthopedic Shoes (1 Pair) with Customized Heat Molded Multidensity Innersoles (3 Pair) . . . Dx: NIDDM/Polyneuropathy (E11.42), Hammertoe Foot Deformity (M20.41,M20.42), Preulcerative Skin Lesion(s) (L85.1) for . 07/10/2015 Not-Taking Extra-Depth Diabetic Shoes with 3 Pair Custom heat-molded multi-density innersoles . for 1 year . Dx:hammertoes,Hallux valgus,pre ulcerative lesions for . 06/20/2014 Not-Taking Clindamycin HCl 300 MG 1 capsule Orally every 8 hrs for 10 day(s) 10/06/2014 Not-Taking Lantus SoloStar Not- Taking Omeprazole 40 MG 1 capsule 30 minutes before morning meal Orally Once a day for 30 day(s) Not-Taking Melatonin Not-Taking Bactrim DS 800-160 MG 1 tablet Orally every 12 hrs for 10 day(s) 10/06/2014 Not-Taking Digoxin Not-Taking traMADol HCl Not-Evlis ing Extra Depth Orthopedic Shoes (1 Pair) with Customized Heat Molded Multidensity Innersoles (3 Pair) as directed Dx: NIDDM/Polyneuropathy (E11.42), Hammertoe Foot Deformity (M20.41,M20.42), Preulcerative Skin Lesion(s) (L85.1 10/17/2022 Active Compression Stockings 20-30mm Hg 1 pair wear daily for 30 days Active Iron 65 mg 1 tablet Orally Once a day Active Insulin 34UNITS 20-22 units per day before bed Not-Taking NexIUM Not-Taking Warfarin Sodium Acti ve metFORMIN HCl Active Extra-Depth Diabetic Shoes with 3 Pair Custom heat-molded multi-density innersoles Active glipiZIDE Active Pravastatin Sodium A ctive Furosemide 40 MG 1 tablet Orally Once a day for 30 day(s) Active oxyCODONE-Acetaminop hen 5-325 MG 1 tablet as needed Orally every 6 hrs Active Carvedilol 12.5 MG 1 tablet with food Orally Active Centrum Silver Activ e Diltiazem HCl CR Not -Taking metOLazone Active Vitamin D Active Aspir-81 Not-Taking Penecillin Active Social History Tobacco Use: Social History Observation Description Date Details (start date - stop date) Former Smoker NA - 11/18/2000 Tobacco Use/Smoking Question Answer Notes Are you a: former smoker When did you stop smoking? 11/18/2000 Additional Findings: Tobacco Non-User Current no n-smoker Tobacco use other than smoking: Question Answer Notes Are you an other tobacco user? No Problems Problem Type SNOMED Code ICD Code Onset Dates Problem Status W/U Status Risk Notes Problem [id number] Pressure injury of right foot, unstageable (L89.890) Active confirmed Vital Signs Blood pressure systolic 102 mm Hg 10/23/19 24 Blood pressure diastolic 69 mm Hg 024 Height 5ft8in in 10/23/2023 Weight 255 lbs 10/23/2023 BMI 38.77 kg/m2 10/23/2023 Procedures Procedure Date Ordered Date Performed Result Body Sit e 86586-RERLFHQ NAIL, 6 OR MORE 10/23/2023 N/A 74576-ZWKE SKIN LESIONS, OVER 4 10/23/2023 N/A Encounters Encounter Location Date Provider Diagnosis [facility] [address] [address] 10/23/2023 Ronel Leon Type 2 diabetes mellitus with diabetic polyneuropathy E11.42 ; Tinea unguium B35.1 ; Charcot gait R26.0 and Pressure injury of right foot, unstageable L89.890 Assessments Encounter Date Diagnosis (ICD Code) Assessment Notes Treatment Notes Treatment Clinical Notes Section Notes 10/23/2023 Type 2 diabetes mellitus with diabetic polyneuropathy (ICD-10 - E11.42) 10/23/2023 Tinea unguium (ICD-10 - B35.1) 10/23/2023 Charcot gait (ICD-10 - R26.0) 10/23/2023 Pressure injury of right foot, unstageable (ICD-10 - L89.890) Plan Of Treatment Pending Test Test Name Order Date 77461-RCGZTUO NAIL, 6 OR MORE 10/23/2023 62989-SDLQ SKIN LESIONS, OVER 4 10/23/19 24 Next Appt Details Follow Up: 4 Months, Reason: Provider Name:Ronel Leon , 04/19/2024 10:15:00 AM, [address] [place] [address], [id number], Procedure Notes * Category Sub-Category Detail Notes Debride Nail 6-10 Nail debridement Nail debridem ent performed extensively to reduce/remove overall nail length and girth, subungual debris, and necrotic tissue, by manual and electrical means with use of a nail nipper and/or dremel, to more viable healthy nail plate or bed tissue 6-10. Silver nitrate used for any petechial bleeding as necessary. Patient chooses, no pharmaceutical tx (01900) Keratoma Treatment Parring or Cutting o f Benign Hyperkeratotic Lesion(s) 33802 ( >4 Lesions) - The Benign hyperkeratotic lesions, as described above were pared, and/or cut utilizing a sterile #15 blade, tissue nippers, and/or dremel Progress Notes * Leonardo GRIFFINDOB:1950 (73 yo M)Acc No.[id number]:10/23/2023 Progress Note Patient:?Leonardo Griffin Provider:?Ronel Leon DPM :1950???Age:73 Y???Sex:Male En e:10/23/2023 Address:[address] [place] [address] Road, [id number] Pcp:Darien Bruner MD Subjective: * Chief Complaints: * ???At Risk FootcareOpen sore * HPI: ???At Risk footcare:?Pt States Last PCP Visit:?Date?05/23/2023 ???Skin problems:?Pt States PCP Visit: ?DATE?05/23/2023 ?Location:?Midfoot , Bottom , Right.?Treatments:?Pt relates hospitalization end of September for open wound with infection. pt is presently being treated at wound care center and [facility] is coming to the house every other day.? * ROS:?General/Constitutional:?Nausea?denies.?Vomiting?denies.?Hunger Thirst?denies.?Loss appetite?denies.?Chills?denies.?Fatigue?denies.?Fever?denies.?Night Sweats?denies.?Unexplained weight loss?denies.?Ophthalmologic:?Blurred vision?denies.?Red eye?denies.?HEENTM:?Dentures?denies.?Dizziness?denies.?Glasses/contacts?admits.?Retinopathy?de nies.?Blurred/double vision?denies.?TMJ?denies.?Discharge/drainage?denies.?Implants?denies.?Hard of hearing admits.?Difficulty chewing/swallowing/speaking?denies.?Nose bleeds?denies.?Sore mouth?denies.?Swollen glands?denies.?Respiratory:?On Oxygen?denies.?Pneumonia/pleurisy?denies.?Bronchitis?denies.?Emphysema?denies.?C oughing?denies.?Cough blood?denies.?Shortness of breath?denies.?Wheezing?denies.?Cardiovascular:?Pacemaker?denies.?MVP?denies.?WPW?denies.?CHF?denies.?Heart attack?denies.?Septal defect?denies.?Rapid beat?denies.?Chest pain ?denies.?Atrial Fib.?denies.?Murmur/Palpitations?denies.?Gastrointestinal:?Hemorrhoids?denies.?Stomach/Abdominal pain?denies.?Dark blood stool?denies.?Irritable bowel ?denies.?Constipation?denies.?Diarrhea?denies.?Vomiting?denies.?Hematology:?Swelling?admits.?Bruising?denies.?Bleeding problem?denies.?Genitourinary:?Blood urine?denies.?Frequent/Painfu/urination/bladder control?denies.?Kidney stones?denies.?Infection (UTI)?denies.?Nephropathy?denies.?Musculoskeletal:?Hammertoes?admits.?Bunions?denies.?Scoliosis/kyphosis?denies.?Muscle cramps / walking?denies.?Generalized aches and pains?denies.?Weakness?denies.?Integ.:?Robles?denies.?Scars?denies.?Corns/calluses?denies.?Ingrown nails?denies.?Painful nails?admits.?Rashes?denies.?Neurologic:?Difficulty sleeping?denies.?Bipolar?denies.?Brain disorder?denies.?Balance trouble?denies.?Confusion?denies.?Fainting/blackouts?denies.?Headache?denies.?Tr emors?denies.? * Medical History:? * Surgical History:?hip surger y 1196/1996cocculer ear implant 12/2013colonoscopy 05/2017left knee replacement 12/27 * Hospitalization/Major Diagno stic Procedure:?[facility] for a-fib 10/23/2011[facility]- Lesion on foot 08/28/23 * Family History:?Mother: dece ased, diagnosed with Unspecified essential hypertension.?Father: , diagnosed with Unspecified essential hypertension, Diabetic - NIDDM.?Daughter(s): alive.?Siblings: .?Spouse: alive.?1 brother(s) , 3 sister(s) . 1 daughter(s) . .? * Social History:?Tobacco Use:?Tobacco Use/Smoking?Are you a:?former smoker ?When did you stop smoking??11/18/2000 ?Additional Findings: Tobacco Non-User?Current non-smoker ?Tobacco use other than smoking?Are you an other tobacco user??No ???Miscellaneous:?Caffeine: yes, frequency:Occassionally coffee and soda. ?Children: yes. ?no Exercise. ?Marital status: . ?Occupation: retired- Disabled before [facility]. * Medications:?TakingPenecilli n metOLazone Vitamin D Furosemide 40 MG Tablet 1 tablet Orally Once a dayoxyCODONE-Acetaminophen 5-325 MG Tablet 1 tablet as needed Orally every 6 hrsCarvedilol 12.5 MG Tablet 1 tablet with food Orally Centrum Silver glipiZIDE Pravastatin Sodium metFORMIN HCl Extra-Depth Diabetic Shoes with 3 Pair Custom heat-molded multi-density innersoles Warfarin Sodium Iron 65 mg 1 tablet Orally Once a dayExtra Depth Orthopedic Shoes (1 Pair) with Customized Heat Molded Multidensity Innersoles (3 Pair) as directed Dx: NIDDM/Polyneuropathy (E11.42), Hammertoe Foot Deformity (M20.41,M20.42), Preulcerative Skin Lesion(s) (L85.1Compression Stockings 20-30mm Hg closed toe- knee high 1 pair wear dailyTaking Penecillin Taking metOLazone Taking Vitamin D Taking Furosemide 40 MG Tablet 1 tablet Orally Once a dayTaking oxyCODONE-Acetaminophen 5-325 MG Tablet 1 tablet as needed Orally every 6 hrsTaking Carvedilol 12.5 MG Tablet 1 tablet with food Orally Taking Centrum Silver Taking glipiZIDE Taking Pravastatin Sodium Taking metFORMIN HCl Taking Extra-Depth Diabetic Shoes with 3 Pair Custom heat-molded multi-density innersoles Taking Warfarin Sodium Taking Iron 65 mg 1 tablet Orally Once a dayTaking Extra Depth Orthopedic Shoes (1 Pair) with Customized Heat Molded Multidensity Innersoles (3 Pair) as directed Dx: NIDDM/Polyneuropathy (E11.42), Hammertoe Foot Deformity (M20.41,M20.42), Preulcerative Skin Lesion(s) (L85.1Taking Compression Stockings 20-30mm Hg closed toe- knee high 1 pair wear dailyNot-Taking/PRNDiltiazem HCl CR Insulin 34UNITS , Notes: 20-22 units per day before bedNexIUM Omeprazole 40 MG Capsule Delayed Release 1 capsule 30 minutes before morning meal Orally Once a dayDigoxin traMADol HCl Melatonin Bactrim DS 800-160 MG Tablet 1 tablet Orally every 12 hrsExtra-Depth Diabetic Shoes with 3 Pair Custom heat-molded multi-density innersoles . . for 1 year . Dx:hammertoes,Hallux valgus,pre ulcerative lesionsClindamycin HCl 300 MG Capsule 1 capsule Orally every 8 hrsDoxycycline Hyclate zzzExtra Depth Orthopedic Shoes (1 Pair) with Customized Heat Molded Multidensity Innersoles (3 Pair) . . . . Dx: NIDDM/Polyneuropathy (E11.42), Hammertoe Foot Deformity (M20.41,M20.42), Preulcerative Skin Lesion(s) (L85.1)Bernice Tineo Aspir-81 Medication List reviewed and reconciled with the patientNot-Taking/PRN Diltiazem HCl CR Not-Taking/PRN Insulin 34UNITS , Notes: 20-22 units per day before bedNot-Taking/PRN NexIUM Not-Taking/PRN Omeprazole 40 MG Capsule Delayed Release 1 capsule 30 minutes before morning meal Orally Once a dayNot-Taking/PRN Digoxin Not-Taking/PRN traMADol HCl Not-Taking/PRN Melatonin Not-Taking/PRN Bactrim DS 800-160 MG Tablet 1 tablet Orally every 12 hrsNot-Taking/PRN Extra-Depth Diabetic Shoes with 3 Pair Custom heat-molded multi-density innersoles . . for 1 year . Dx:hammertoes,Hallux valgus,pre ulcerative lesionsNot-Taking/PRN Clindamycin HCl 300 MG Capsule 1 capsule Orally every 8 hrsNot-Taking/PRN Doxycycline Hyclate Not-Taking/PRN zzzExtra Depth Orthopedic Shoes (1 Pair) with Customized Heat Molded Multidensity Innersoles (3 Pair) . . . . Dx: NIDDM/Polyneuropathy (E11.42), Hammertoe Foot Deformity (M20.41,M20.42), Preulcerative Skin Lesion(s) (L85.1)Not- Taking/PRN Lantus SoloStar Not-Taking/PRN Aspir-81 Medication List reviewed and reconciled with the patient * Allergies:?AmoxicillinPenici llin: Allergyyes[Allergies Verified] Objective: * Vitals:?Ht: 5ft8in, Wt:255, BMI:38.77, Shoe size: 11W, BP:102/69 mm Hg, BS: 131, Ht-cm: 172.72 cm, Wt-k.67 kg. * ???Past Orders: ???Lab:HEMOGLOBIN A1C (GLYCO HEMOGLOBIN) (Order Date - 06/19/2023) (Collection Date - 05/09/2023) ? Value Reference Range ?HEMOGLOBIN A1C % (HH) 6.4 * Examination: ???Ophthalmology Referral: ?DIABETES EYE EXAM?Neurological: ?SENSORY:?exam demonstrates. reduced vibration lower extremity, 5.07 monofilament test performed at plantar aspects of 5 varied sites per foot, shows sensation, reduced, B/L, reduced sharp/dull discrimination , Pt relates Cont. anesthesia , reduced proprioception sensation.?Vascular: ?DP PULSES:?1/4, B/L.?PT PULSES:?2/4, B/L.?PIGMENTATION:?hemosiderin deposition B/L.?EDEMA:?2/4 , ?B/L.?SALVADOR'S SIGN:?absent, B/L.?PALPABLE CORDS:?absent, B/L.?Nails: ?NAILS are:?elongated,overgrown,dystrophic,greater than 3mm thick,discolored and friable with crumbly malodorous subungual debris, with dull to no pain on palpation due to neuropathy, 1-5 right, , TA, T1, T3, T4.?Dermatologic: ?SKIN FINDINGS:?Skin exam reveals Keratotic lesion(s) located at, Midfoot, left , SUB MTH (s), 1, B/L base of 2nd MET , Heel(s) , B/L.?ULCER:?DSD intact right midfoot-.?Orthopedic: ?FOOTWEAR:?worn, non-supportive, shoe gear properties exacerbate patient's foot/toe deformity .?General Examination: ?FOOT EXAM:?Footwear Evaluation? Assessment: * Assessment: 1.?Tinea unguium - B35.1?2.? Type 2 diabetes mellitus with diabetic polyneuropathy - E11.42?3.?Charcot gait - R26.0?4.?Pressure injury of right foot, unstageable - L89.890? Plan: * Treatment: 2.?Type 2 diabetes mellitus with diabetic polyneuropathy?Procedure: 24496-IWCJ SKIN LESIONS, OVER 4 * Procedures:?Debride Nail 6-10:?Nail debridement?Nail debridement performed extensively to reduce/remove overall nail length and girth, subungual debris, and necrotic tissue, by manual and electrical means with use of a nail nipper and/or dremel, to more viable healthy nail plate or bed tissue 6-10. Silver nitrate used for any petechial bleeding as necessary. Patient chooses, no pharmaceutical tx (11332).?Keratoma Treatment:?Parring or Cutting of Benign Hyperkeratotic Lesion(s)?94962 ( >4 Lesions) - The Benign hyperkeratotic lesions, as described above were pared, and/or cut utilizing a sterile #15 blade, tissue nippers, and/or dremel.? * Procedure Codes:?31261 DEBRI DE NAIL, 6 OR MORE, Modifiers: XS 16715 TRIM SKIN LESIONS, OVER 4, Modifiers: XS * Preventive Medicine:? ??Counseling:?Discussion:?-13: Office or other outpatient visit for the evaluation and management of an established patient, which required a medically appropriate history and/or examination and LOW level of DECISION MAKING for: 1 STABLE ACUTE UNCOMPLICATED PROBLEM, 2 OR MORE MINOR PROBLEMS, OR 1 STABLE CHRONIC PROBLEM, THAT POSE(S) A LOW RISK FOR MORBIDITY/MORTALITY. The visit on the day of the encounter encompassed interpreting the data and educating the patient as to the nature of their condition, treatment options available according to their individual PMH, meds, allergies, and overall health/living conditions, as well as any potential risks or complications that may occur from a failure to adhere to, and participate in, the recommended course of therapy. The discussion included a complete verbal, and/or written explanation of the examination results, any x-rays taken, the proposed diagnosis, and outline of the treatment plan. A schedule for future care needs was also explained. The patient verbalized an understanding of the instructions at this time and agreed to be an active participant in their treatment. If the patient should think of any questions or concerns after the visit, I have encouraged the patient to call the office.?Ulcer:?PREVENTIVE STRATEGIES were reviewed with the patient to avoid recurrent ulceration once the present ulcer is healed . A set of verbal and written instructions regarding proper daily diabetic footcare techniques was discussed and dispensed. The patient is to pay close attention to skin hydration by maintaining proper moisturization through correct water consumption and consistent application of skin lotions/creams/ointments. They are also to perform regular visual and tactile foot inspections for any interruption in skin integrity including cracks, open lesions, and immediately report to the office any sign of infection such as redness/malodor/drainage/swelling. We discussed and recommended practices and procedures regarding regular shoe and insert evaluations for the presence of foreign bodies as well as for any irregular shoe or insert wear. We reinforced the importance for the patient to adhere to wearing their orthopedic shoes and pressure accommodative innersoles whenever walking. We stressed the significant value for the patient to remain consistent concerning their medically prescribed diet, participate in regular nonweight-bearing exercise (seated weights, exercise bike, or swimming), and keep their scheduled at risk foot care podiatric appointments. We also reviewed the possible role for additional Rx foot/leg bracing or surgical intervention when/if medically warranted.? * Follow Up:?4 Months * Images: * Sign off status: Completed true * Provider:?Ronel Leon DPM Date:?2023 Generated for René temple/Melissa/Patel on:?02/18/2024 01:02 AM EST History and Physical Notes * HPI (History of Present Illness) Category Sub-Category Detail Notes Category Not es Skin problems Location: Midfoot , Bottom , Right Treatments: Pt relates hospitali zaonur end of September for open wound with infection. pt is presently being treated at wound care center and [facility] is coming to the house every other day Pt States PCP Visit: DATE: 05/23/2023 At Risk footcare Pt States Last PCP Visit: Date: Examination Category Sub-Category Detail Notes Category Not es Neurological SENSORY: exam demonstrate s. reduced vibration lower extremity, 5.07 monofilament test performed at plantar aspects of 5 varied sites per foot, shows sensation, reduced, B/L, reduced sharp/dull discrimination , Pt relates Cont. anesthesia , reduced proprioception sensation Dermatologic SKIN FINDINGS: Skin exam reveal s Keratotic lesion(s) located at, Midfoot, left , SUB MTH (s), 1, B/L base of 2nd MET , Heel(s) , B/L ULCER: DSD intact right mid foot- VERRUCA: Orthopedic FOOTWEAR: worn, non-suppor tive, shoe gear properties exacerbate patient's foot/toe deformity General Examination FOOT EXAM: Lower Extrem ity Neurological Exam performed:: Yes Footwear Evaluation Footwear Evaluation performe d:: Yes Ophthalmology Referral DIABETES EYE EXAM Diabetic Retinopa thy Screening:: Yes Findings of Diabetic Eye Exam:: no retin opathy Vascular DP PULSES(B): 1/4, B/L PT PULSES(B): 2/4, B/L EDEMA(C): 2/4 , B/L SALVADOR'S SIGN: absent, B/L PALPABLE CORDS: absent, B/L PIGMENTATION: hemosiderin depositi on B/L Nails NAILS are: elongated,overgr own,dystrophic,greater than 3mm thick,discolored and friable with crumbly malodorous subungual debris, with dull to no pain on palpation due to neuropathy, 1-5 right, , TA, T1, T3, T4
--- OUTSIDE RECORDS SUMMARY | 2024-02-18 01:03 | XMS_ITS ---
Author Name [facility] History of Medication Use Medication Directions Dispensed Refills Start Date End Date Stat us SUPPLY DME MISC RT ANKLE / Foot [place] Boot Dx: Diabetic Neuropathy, RT Plantar foot Ulcer 02/14/2024 03/09/9999 active Problems Problem Status Onset Date Problem Type Date of Resoluti on Source Pain in left ankle and joints of left foot active EncounterDiagnosisAct [facility] Pain in right ankle and joints of right foot active EncounterDiagnosisAct [facility]
--- OUTSIDE RECORDS SUMMARY | 2024-02-18 01:03 | XMS_ITS ---
Author Organization [facility] Address [address] [place] [address] Care Team Providers Care Parts Counterman Name Role Phone Darien Bruner MD Primary Care Provider UnavailGriffin Cheng Jr Unavailable REASON FOR VISIT Barium enema Encounters Encounter Location Date Provider Diagnosis [facility] [address] [place] [address] 11/18/2022 Griffin Donahue Jr Colon cancer screening Z12.11 ASSESSMENTS Encounter Date Diagnosis Assessment Notes Treatment Notes Treatment Clinical Notes 11/18/2022 Colon cancer screening (ICD-10 - Z12.11) PLAN OF TREATMENT Pending Test Test Name Order Date XR BARIUM ENEMA 11/18/2022
--- OUTSIDE RECORDS SUMMARY | 2024-02-18 01:03 | XMS_ITS ---
Author Organization [facility] Address [address] [place] [phone] Care Team Providers Care Puller Out Name Role Phone Darien Bruner MD Primary Care Provider Unavaila Griffin Torres Jr Unavailable [phone] REASON FOR VISIT screening Encounters Encounter Location Date Provider Diagnosis [facility] Outpatient [address] [place] [phone] 11/01/2022 Griffin Donahue Jr Colon cancer screening Z12.11 ASSESSMENTS Encounter Date Diagnosis Assessment Notes Treatment Notes Treatment Clinical Notes 11/01/2022 Colon cancer screening (ICD-10 - Z12.11) PLAN OF TREATMENT No Information
--- OUTSIDE RECORDS SUMMARY | 2024-02-18 01:03 | XMS_ITS ---
Author Organization [facility] Address [address] [place] [address] Care Team Providers Care Recycle Coordinator Name Role Phone Darien Bruner MD Primary Care Provider Unavaila ble Black, Ronel Unavailable [phone] Allergies Allergen (clinical drug ingredient) Drug/Non Drug Allergy documented on EMR Reaction Allergy Type Onset Date Status amoxicillin Amoxicillin Unknown Drug Allergy Act anneliese Penicillin Unknown Drug Allergy Active REASON FOR VISIT At Risk Footcare, Wart(s), Swelling Medications Medication SIG (Take, Route, Frequency, Duration) Notes Start Date End Date Status Aspir-81 Not-Taking zzzExtra Depth Orthopedic Shoes (1 Pair) with Customized Heat Molded Multidensity Innersoles (3 Pair) . . . Dx: NIDDM/Polyneuropathy (E11.42), Hammertoe Foot Deformity (M20.41,M20.42), Preulcerative Skin Lesion(s) (L85.1) for . 07/10/2015 Not-Taking Lantus SoloStar Not- Taking Clindamycin HCl 300 MG 1 capsule Orally every 8 hrs for 10 day(s) 10/06/2014 Not-Taking Doxycycline Hyclate Not-Taking Compression Stockings 20-30mm Hg 1 pair wear daily for 30 days Active Bactrim DS 800-160 MG 1 tablet Orally every 12 hrs for 10 day(s) 10/06/2014 Not-Taking Extra-Depth Diabetic Shoes with 3 Pair Custom heat-molded multi-density innersoles . for 1 year . Dx:hammertoes,Hallux valgus,pre ulcerative lesions for . 06/20/2014 Not-Taking traMADol HCl Not-Elvis ing Melatonin Not-Taking Digoxin Not-Taking NexIUM Not-Taking Omeprazole 40 MG 1 capsule 30 minutes before morning meal Orally Once a day for 30 day(s) Not-Taking Iron 65 mg 1 tablet Orally Once a day Active Extra Depth Orthopedic Shoes (1 Pair) with Customized Heat Molded Multidensity Innersoles (3 Pair) as directed Dx: NIDDM/Polyneuropathy (E11.42), Hammertoe Foot Deformity (M20.41,M20.42), Preulcerative Skin Lesion(s) (L85.1 10/17/2022 Active Warfarin Sodium Acti ve Insulin 34UNITS 20-22 units per day before bed Not-Taking metFORMIN HCl Active Extra-Depth Diabetic Shoes with 3 Pair Custom heat-molded multi-density innersoles Active Pravastatin Sodium A ctive Diltiazem HCl CR Act anneliese glipiZIDE Active Carvedilol 12.5 MG 1 tablet with food Orally Active Centrum Silver Activ e oxyCODONE-Acetaminop hen 5-325 MG 1 tablet as needed Orally every 6 hrs Active Furosemide 40 MG 1 tablet Orally Once a day for 30 day(s) Active metOLazone Active Vitamin D Active Social History Tobacco Use: Social History Observation Description Date Details (start date - stop date) Former Smoker NA - 11/18/2000 Tobacco Use/Smoking Question Answer Notes Are you a: former smoker When did you stop smoking? 11/18/2000 Additional Findings: Tobacco Non-User Current no n-smoker Alcohol Screen Question Answer Notes Did you have a drink containing alcohol in the p ast year? No Points 0 Interpretation Negative Tobacco use other than smoking: Question Answer Notes Are you an other tobacco user? No Problems Problem Type SNOMED Code ICD Code Onset Dates Problem Status W/U Status Risk Notes Problem Stasis dermatitis (03250256) Stasis dermatitis (I87.2) Active confirmed Vital Signs Blood pressure systolic 125 mm Hg 06/19/19 24 Blood pressure diastolic 70 mm Hg 024 Height 5ft 8 in in 06/19/2023 Weight 265 lbs 06/19/2023 BMI 40.29 kg/m2 06/19/2023 Procedures Procedure Date Ordered Date Performed Result Body Sit e 70710-FQMACUG NAIL, 6 OR MORE 06/19/2023 N/A 19078-Kdkx Destruction, 1-14 06/19/2023 N/A 48028-CRZJ SKIN LESIONS, OVER 4 06/19/2023 N/A Encounters Encounter Location Date Provider Diagnosis [facility] [address] [place] [address] 06/19/2023 Ronel Leon Type 2 diabetes mellitus with diabetic polyneuropathy E11.42 ; Tinea unguium B35.1 ; Plantar wart B07.0 ; Pain in right foot M79.671 ; Charcot gait R26.0 ; Edema, lower extremity R60.0 and Stasis dermatitis I87.2 Assessments Encounter Date Diagnosis (ICD Code) Assessment Notes Treatment Notes Treatment Clinical Notes Section Notes 06/19/2023 Type 2 diabetes mellitus with diabetic polyneuropathy (ICD-10 - E11.42) 06/19/2023 Tinea unguium (ICD-10 - B35.1) 06/19/2023 Plantar wart (ICD-10 - B07.0) 06/19/2023 Pain in right foot (ICD-10 - M79.671) 06/19/2023 Charcot gait (ICD-10 - R26.0) 06/19/2023 Edema, lower extremity (ICD-10 - R60.0) 06/19/2023 Stasis dermatitis (ICD-10 - I87.2) Plan Of Treatment Medication Medication Name Sig Start Date Stop Date Notes Compression Stockings 20-30mm Hg 1 pair wear daily for 30 days Pending Test Test Name Order Date 76165-FQDNKFS NAIL, 6 OR MORE 06/19/2023 47505-Qgre Destruction, 1-14 06/19/2023 05181-QSJH SKIN LESIONS, OVER 4 06/19/19 24 Next Appt Details Follow Up: prn, Reason: Provider Name:Ronel Leon , 04/19/2024 10:15:00 AM, [address] [place] [address], [phone], Procedure Notes * Category Sub-Category Detail Notes Wart Treatment Procedure Verrucae(s) were debrided to pin-point bleeding margins with sterile surgical blade, silver nitrate chemocautery applied, recomm. immune-boosting meds such as zinc, recomm. follow up with topical chemosurgical agents, Pt STILL, defers any other forms of tx (35837) Debride Nail 6-10 Nail debridement Nail debridem ent performed extensively to reduce/remove overall nail length and girth, subungual debris, and necrotic tissue, by manual and electrical means with use of a nail nipper and/or dremel, to more viable healthy nail plate or bed tissue 6-10. Silver nitrate used for any petechial bleeding as necessary. Patient chooses, no pharmaceutical tx (94724) Keratoma Treatment Parring or Cutting o f Benign Hyperkeratotic Lesion(s) 76840 ( >4 Lesions) - The Benign hyperkeratotic lesions, as described above were pared, and/or cut utilizing a sterile #15 blade, tissue nippers, and/or dremel Progress Notes * Leonardo GRIFFINDOB:1950 (73 yo M)Acc No.[id number]:06/19/2023 Progress Note Patient:?Leonardo Griffin Provider:?Ronel Leon DPM :1950???Age:73 Y???Sex:Male En e:06/19/2023 Address:[address] [place] [address], [facility] Pcp:Darien Bruner MD Subjective: * Chief Complaints: * ???At Risk FootcareWart(s)Kari yo * HPI: ???At Risk footcare:?Pt States Last PCP Visit:?Date?05/23/2023 ???Skin problems:?Pt States PCP Visit: ?DATE?05/23/2023 ???Swelling:?Nature:?swelling and discoloration.?Location:?Both feet/leg.?Duration:?several weeks.?Course:?worse.? * ROS:?General/Constitutional:?Nausea?denies.?Vomiting?denies.?Hunger Thirst?denies.?Loss appetite?denies.?Chills?denies.?Fatigue?denies.?Fever?denies.?Night Sweats?denies.?Unexplained weight loss?denies.?Ophthalmologic:?Blurred vision?denies.?Red eye?denies.?HEENTM:?Dentures?denies.?Dizziness?denies.?Glasses/contacts?admits.?Retinopathy?de nies.?Blurred/double vision?denies.?TMJ?denies.?Discharge/drainage?denies.?Implants?denies.?Hard of hearing admits.?Difficulty chewing/swallowing/speaking?denies.?Nose bleeds?denies.?Sore mouth?denies.?Swollen glands?denies.?Respiratory:?On Oxygen?denies.?Pneumonia/pleurisy?denies.?Bronchitis?denies.?Emphysema?denies.?C oughing?denies.?Cough blood?denies.?Shortness of breath?denies.?Wheezing?denies.?Cardiovascular:?Pacemaker?denies.?MVP?denies.?WPW?denies.?CHF?denies.?Heart attack?denies.?Septal defect?denies.?Rapid beat?denies.?Chest pain ?denies.?Atrial Fib.?denies.?Murmur/Palpitations?denies.?Gastrointestinal:?Hemorrhoids?denies.?Stomach/Abdominal pain?denies.?Dark blood stool?denies.?Irritable bowel ?denies.?Constipation?denies.?Diarrhea?denies.?Vomiting?denies.?Hematology:?Swelling?admits.?Bruising?denies.?Bleeding problem?denies.?Genitourinary:?Blood urine?denies.?Frequent/Painfu/urination/bladder control?denies.?Kidney stones?denies.?Infection (UTI)?denies.?Nephropathy?denies.?Musculoskeletal:?Hammertoes?admits.?Bunions?denies.?Scoliosis/kyphosis?denies.?Muscle cramps / walking?denies.?Generalized aches and pains?denies.?Weakness?denies.?Integ.:?Robles?denies.?Scars?denies.?Corns/calluses?denies.?Ingrown nails?denies.?Painful nails?admits.?Rashes?denies.?Neurologic:?Difficulty sleeping?denies.?Bipolar?denies.?Brain disorder?denies.?Balance trouble?denies.?Confusion?denies.?Fainting/blackouts?denies.?Headache?denies.?Tr emors?denies.? * Medical History:? * Surgical History:?hip surger y 1196/1997cocculer ear implant 12/2013colonoscopy 05/2017left knee replacement 12/27 * Hospitalization/Major Diagno stic Procedure:?[facility] for a-fib 10/23/2011 * Family History:?Mother: dece ased, diagnosed with Unspecified essential hypertension.?Father: , diagnosed with Diabetic - NIDDM, Unspecified essential hypertension.?Daughter(s): alive.?Siblings: .?Spouse: alive.?1 brother(s) , 3 sister(s) . 1 daughter(s) . .? * Social History:?Tobacco Use:?Tobacco Use/Smoking?Are you a:?former smoker ?When did you stop smoking??11/18/2000 ?Additional Findings: Tobacco Non-User?Current non-smoker ?Tobacco use other than smoking?Are you an other tobacco user??No ???Drugs/Alcohol:?Drugs?Have you used drugs other than those for medical reasons in the past 12 months??No ?Alcohol Screen?Did you have a drink containing alcohol in the past year??No ?Points?0 ?Interpretation?Negative ???Miscellaneous:?Caffeine: yes, frequency:Occassionally coffee and soda. ?Children: yes. ?no Exercise. ?Marital status: . ?Occupation: retired- Disabled before snf. * Medications:?TakingmetOLazon e Vitamin D Furosemide 40 MG Tablet 1 tablet Orally Once a dayoxyCODONE-Acetaminophen 5-325 MG Tablet 1 tablet as needed Orally every 6 hrsCarvedilol 12.5 MG Tablet 1 tablet with food Orally Centrum Silver Diltiazem HCl CR glipiZIDE Pravastatin Sodium metFORMIN HCl Extra-Depth Diabetic Shoes with 3 Pair Custom heat-molded multi-density innersoles Warfarin Sodium Iron 65 mg 1 tablet Orally Once a dayExtra Depth Orthopedic Shoes (1 Pair) with Customized Heat Molded Multidensity Innersoles (3 Pair) as directed Dx: NIDDM/Polyneuropathy (E11.42), Hammertoe Foot Deformity (M20.41,M20.42), Preulcerative Skin Lesion(s) (L85.1Taking metOLazone Taking Vitamin D Taking Furosemide 40 MG Tablet 1 tablet Orally Once a dayTaking oxyCODONE-Acetaminophen 5-325 MG Tablet 1 tablet as needed Orally every 6 hrsTaking Carvedilol 12.5 MG Tablet 1 tablet with food Orally Taking Centrum Silver Taking Diltiazem HCl CR Taking glipiZIDE Taking Pravastatin Sodium Taking metFORMIN HCl Taking Extra-Depth Diabetic Shoes with 3 Pair Custom heat-molded multi- density innersoles Taking Warfarin Sodium Taking Iron 65 mg 1 tablet Orally Once a dayTaking Extra Depth Orthopedic Shoes (1 Pair) with Customized Heat Molded Multidensity Innersoles (3 Pair) as directed Dx: NIDDM/Polyneuropathy (E11.42), Hammertoe Foot Deformity (M20.41,M20.42), Preulcerative Skin Lesion(s) (L85.1Not- Taking/PRNInsulin 34UNITS , Notes: 20-22 units per day [...] Hammertoe Foot Deformity (M20.41,M20.42), Preulcerative Skin Lesion(s) (L85.1)Lantus SoloStar Aspir-81 Not-Taking/PRN Insulin 34UNITS , Notes: 20-22 units per day before bedNot- Taking/PRN NexIUM Not-Taking/PRN Omeprazole 40 MG Capsule Delayed [...] Hammertoe Foot Deformity (M20.41,M20.42), Preulcerative Skin Lesion(s) (L85.1)Not-Taking/PRN Lantus SoloStar Not-Taking/PRN Aspir-81 * Allergies:?AmoxicillinPenici llin: Allergyyes[Allergies Verified] Objective: * Vitals:?Ht: 5ft 8 in, Wt:265 , BMI:40.29, Shoe size:11W, BP:125/70 mm Hg, BS:131. * ???Past Orders: ???Lab:HEMOGLOBIN A1C (GLYCO HEMOGLOBIN) [...] Cont. anesthesia , reduced proprioception sensation.?Vascular: ?DP PULSES:?/4, B/L.?PT PULSES:?2/4, B/L.?PIGMENTATION:?hemosiderin deposition B/L.?EDEMA:?2/4 , ?B/L.?SALVADOR'S SIGN:?absent, B/L.?PALPABLE CORDS:?absent, B/L.?Nails: ?NAILS are:?elongated,overgrown,dystrophic,greater than 3mm thick,discolored and friable with crumbly malodorous subungual debris, with dull to no pain on palpation due to neuropathy, 1-5 right, , TA, T1, T3, T4.?Dermatologic: ?SKIN FINDINGS:? Skin shows sign(s) of plantar swelling plantar lateral midfoot B/L, no pain on palpation, Skin exam reveals Keratotic lesion(s) located at, Midfoot, B/L, SUB MTH (s), 1, B/L base of 2nd MET.?VERRUCA:?Reveals Multiple ( 2 ), multi-loculated , mosaic, round, raised, flat-topped, petechial bleeding papule(s), with cauliflower appearance and interruption of skin lines, with pain to lateral compression, and size estimated at 3 mm diameter , plantar Midfoot , RIGHT.?Orthopedic: ?FOOTWEAR:?worn, non-supportive, shoe gear properties exacerbate patient's foot/toe deformity .?General Examination: ?FOOT EXAM:?Footwear Evaluation? Assessment: * Assessment: 1.?Type 2 diabetes mellitus with diabetic polyneuropathy - E11.42?2.?Tinea unguium - B35.1?3.?Plantar wart - B07.0?4.?Pain in right foot - M79.671?5.?Charcot gait - R26.0?6.?Edema, lower extremity - R60.0, Acute problem, Uncomplicated (3), Rx Management (4)?7.?Stasis dermatitis - I87.2? Plan: * Treatment: 2.?Tinea unguium?Procedure: 32142-ZLGNHUV NAIL, 6 OR MORE 3.?Plantar wart?Procedure: 62048-Znze Destruction, 1-14 4.?Edema, lower extremity? Start Compression Stockings closed toe- knee high, 20-30mm Hg, 1 pair, wear, daily, 30 days, 2, Refills 2.?? * Procedures:?Debride Nail 6-10:?Nail debridement?Nail debridement performed extensively to reduce/remove overall nail length and girth, subungual debris, and necrotic tissue, by manual and electrical means with use of a nail nipper and/or dremel, to more viable healthy nail plate or bed tissue 6-10. Silver nitrate used for any petechial bleeding as necessary. Patient chooses, no pharmaceutical tx (57951).?Keratoma Treatment:?Parring or Cutting of Benign Hyperkeratotic Lesion(s)?05548 ( >4 Lesions) - The Benign hyperkeratotic lesions, as described above were pared, and/or cut utilizing a sterile #15 blade, tissue nippers, and/or dremel.?Wart Treatment:?Procedure?Verrucae(s) were debrided to pin-point bleeding margins with sterile surgical blade, silver nitrate chemocautery applied, recomm. immune-boosting meds such as zinc, recomm. follow up with topical chemosurgical agents, Pt STILL, defers any other forms of tx (56930).? * Procedure Codes:?45016 DEBRI DE NAIL, 6 OR MORE, Modifiers: XS 12728 Wart Destruction, 1-14, Modifiers: XS 62029 TRIM SKIN LESIONS, OVER 4, Modifiers: XS [...] have encouraged the patient to call the office.?Edema:?I explained to the patient the possible etiologies for Edema, including genetic, surgery, infection, medications, heart disease, kidney disease, excess dietary salt, and various cancer treatments. We discussed the risks/benefits of the treatment options available including rest, elevation, OTC compression stockings, Rx compression stockings, Unna Boot application, diet modification to limit salt intake, and Rx segmental compression boots provided the absence of CHD in the patients medical history. The advantages and disadvantages of each option were discussed and the patients questions re: risk of infection(cellulitis), medications, diet, and the daily use of compression stockings(not to be worn at night), and consistency in these home treatment regimens for optimal success were answered to their verbally confirmed satisfaction. Given the risk for vessel clotting disease, the patient was instructed to go immediately to the ER of hospital should they experience any calf pain, SOB, or discomfort. Any changes to the patients medication regimen will be performed by the PCP or patients kidney/heart/cancer specialist. The patient has elected to receive compression stockings. The discoloration the patient is experiencing is discussed with the PT- hemosiderin in the tissues.? * Follow Up:?prn * Images: * Sign off status: Completed true * Provider:?Ronel Leon DPM Date:?2023 Generated for René temple/Melissa/Patel on:?02/18/2024 01:02 AM EST History and Physical Notes * HPI (History of Present Illness) Category Sub-Category Detail Notes Category Not es Skin problems Pt States PCP Visit: DATE: 05/23/2023 At Risk footcare Pt States Last PCP Visit: Date: 05/23/2023 Swelling Nature: swelling and discoloration Location: Both feet/leg Duration: several weeks Course: worse Examination Category Sub-Category Detail Notes Category Not es Neurological SENSORY: exam demonstrate s. reduced vibration lower extremity, 5.07 monofilament test performed at plantar aspects of 5 varied sites per foot, shows sensation, reduced, B/L, reduced sharp/dull discrimination , Pt relates Cont. anesthesia , reduced proprioception sensation Dermatologic SKIN FINDINGS: Skin shows sign( s) of plantar swelling plantar lateral midfoot B/L, no pain on palpation, Skin exam reveals Keratotic lesion(s) located at, Midfoot, B/L, SUB MTH (s), 1, B/L base of 2nd MET ULCER: VERRUCA: Reveals Multiple ( 2 ), multi-loculated , mosaic, round, raised, flat- topped, petechial bleeding papule(s), with cauliflower appearance and interruption of skin lines, with pain to lateral compression, and size estimated at 3 mm diameter , plantar Midfoot , RIGHT Orthopedic FOOTWEAR: worn, non-suppor tive, shoe gear properties exacerbate patient's foot/toe deformity General Examination FOOT EXAM: Lower Extrem ity Neurological Exam performed:: Yes Footwear Evaluation Footwear Evaluation performe d:: Yes Ophthalmology Referral DIABETES EYE EXAM Diabetic Retinopa thy Screening:: No Findings of Diabetic Eye Exam:: no retin [...]
--- OUTSIDE RECORDS SUMMARY | 2024-02-18 01:03 | XMS_ITS | Patient Health Record ---
Author Organization [facility] Address [address] [place] [address] Care Team Providers Care Information Technology Officer Name Role Phone Darien Bruner MD Primary Care Provider Unavaila ble Ronel Leon Unavailable [phone] Allergies Allergen (clinical drug ingredient) Drug/Non Drug Allergy documented on EMR Reaction Allergy Type Onset Date Status amoxicillin Amoxicillin Unknown Drug Allergy Act anneliese Penicillin Unknown Drug Allergy Active Results Component Value Reference Range Notes HEMOGLOBIN A1C (GLYCOHEMOGLO BIN) Reviewed date:06/19/2023 07:58:59 AM Interpretation: Performing Lab: Notes/Report: HEMOGLOBIN A1C % (HH) 6.4 Reason For Referral No Information Medications Medication SIG (Take, Route, Frequency, Duration) Notes Start Date End Date Status Furosemide 40 MG 1 tablet Orally Once a day for 30 day(s) Active Doxycycline Hyclate Not-Taking oxyCODONE-Acetaminop hen 5-325 MG 1 tablet as needed Orally every 6 hrs Active zzzExtra Depth Orthopedic Shoes (1 Pair) with Customized Heat Molded Multidensity Innersoles (3 Pair) . . . Dx: NIDDM/Polyneuropathy (E11.42), Hammertoe Foot Deformity (M20.41,M20.42), Preulcerative Skin Lesion(s) (L85.1) for . 07/10/2015 Not-Taking metOLazone Active Extra-Depth Diabetic Shoes with 3 Pair Custom heat-molded multi-density innersoles . for 1 year . Dx:hammertoes,Hallux valgus,pre ulcerative lesions for . 06/20/2014 Not-Taking Vitamin D Active Clindamycin HCl 300 MG 1 capsule Orally every 8 hrs for 10 day(s) 10/06/2014 Not-Taking Carvedilol 12.5 MG 1 tablet with food Orally Active Centrum Silver Activ e NexIUM Not-Taking Omeprazole 40 MG 1 capsule 30 minutes before morning meal Orally Once a day for 30 day(s) Not-Taking Melatonin Not-Taking Penecillin Active Bactrim DS 800-160 MG 1 tablet Orally every 12 hrs for 10 day(s) 10/06/2014 Not-Taking Digoxin Not-Taking traMADol HCl Not-Elvis ing Extra Depth Orthopedic Shoes (1 Pair) with Customized Heat Molded Multidensity Innersoles (3 Pair) as directed Dx: NIDDM/Polyneuropathy (E11.42), Hammertoe Foot Deformity (M20.41,M20.42), Preulcerative Skin Lesion(s) (L85.1 10/17/2022 Active Compression Stockings 20-30mm Hg 1 pair wear daily for 30 days Active Warfarin Sodium Acti ve Iron 65 mg 1 tablet Orally Once a day Active Insulin 34UNITS 20-22 units per day before bed Not-Taking Aspir-81 Not-Taking Diltiazem HCl CR Not -Taking Lantus SoloStar Not- Taking metFORMIN HCl Active Extra-Depth Diabetic Shoes with 3 Pair Custom heat-molded multi-density innersoles Active glipiZIDE Active Pravastatin Sodium A ctive Immunizations Vaccine Route Administration Date Status Comme nts COVID-19 Pfizer BioNTech Vaccine Unknown 05/18/2020 Administered Second Dose: 06/08/2020 Influenza Unknown 07/10/2015 Pending Influenza Unknown 07/10/2015 Pending Influenza Unknown 01/01/2016 Administered Influenza Unknown 11/25/2016 Administered Influenza Unknown 11/06/2017 Administered Influenza Unknown 12/09/2019 Administered Influenza Unknown 11/08/2021 Administered Influenza Unknown 11/08/2022 Administered Social History Tobacco Use: Social History Observation [...] Problem Status W/U Status Risk Notes Problem Acquired hammer toe of right foot (3089825584209017) Other hammer toe(s) (acquired), right foot (M20.41) Active confirmed Problem Acquired hammer toe of left foot (3379985077890722) Other hammer toe(s) (acquired), left foot (M20.42) Active confirmed Problem Plantar wart (12615554) Plantar wart (B07.0) Active confirmed Problem Ulcer of toe (954555528) Non-pressure chronic ulcer of other part of left foot limited to breakdown of skin (L97.521) Active confirmed Problem Non-pressure chronic ulcer of other part of right foot limited to breakdown of skin (L97.511) Active confirmed Problem 853124278920109 Hallux valgus (acquired), left foot (M20.12) Active confirmed Problem 494243917803807 Hallux valgus (acquired), right foot (M20.11) Active confirmed Problem Acquired hammer toe of right foot (4682127673232862) Other hammer toe(s) (acquired), right foot (M20.41) Active confirmed Problem Acquired hammer toe of left foot (5786997535718580) Other hammer toe(s) (acquired), left foot (M20.42) Active confirmed Problem Polyneuropathy due to type 2 diabetes mellitus (557569825) Type 2 diabetes mellitus with diabetic polyneuropathy (E11.42) Active confirmed Problem 64512515 Charcot foot due to diabetes mellitus (E11.610) Active confirmed Problem 51936758 Unsteady gait (R26.81) Active confirmed Problem 15499143 Charcot gait (R26.0) Active confirmed Problem Ulcer of toe of right foot (disorder) (17898092334015541 ) Skin ulcer of toe of right foot, limited to breakdown of skin (L97.511) Active confirmed Problem 955212874 Pressure injury of right foot, unstageable (L89.890) Active confirmed Problem Ulcer of toe of left foot (disorder) (22840824703278609 ) Skin ulcer of toe of left foot, limited to breakdown of skin (L97.521) Active confirmed Problem Stasis dermatitis (37220698) Stasis dermatitis (I87.2) Active confirmed Vital Signs Blood pressure diastolic 69 mm Hg 10/23/2023 Height 5ft8in in 10/23/2023 Blood pressure systolic 102 mm Hg 10/23/2023 Weight 255 lbs 10/23/2023 BMI 38.77 kg/m2 10/23/2023 Procedures Procedure Date Ordered Date Performed Result Body Sit e 13981-BMNNQZS NAIL, 6 OR MORE 02/17/2023 N/A 66489-Ugfv Destruction, 1-14 02/17/2023 N/A 00036-CBAW SKIN LESIONS, OVER 4 02/17/2023 N/A 54302-MNCEUGI NAIL, 6 OR MORE 06/19/2023 N/A 04541-Izwt Destruction, 1-14 06/19/2023 N/A 88112-LSHW SKIN LESIONS, OVER 4 06/19/2023 N/A 40578-FUBVUHW NAIL, 6 OR MORE 10/23/2023 N/A 45394-MTXE SKIN LESIONS, OVER 4 10/23/2023 N/A Encounters Encounter Location Date Provider Diagnosis [facility] [address] 02/17/2023 Ronel Black Type 2 diabetes mellitus with diabetic polyneuropathy E11.42 ; Unsteady gait R26.81 ; Tinea unguium B35.1 ; Plantar wart B07.0 ; Pain in right foot M79.671 and Charcot gait R26.[address] [address] 06/19/2023 Ronel Black Type 2 diabetes mellitus with diabetic polyneuropathy E11.42 ; Tinea unguium B35.1 ; Plantar wart B07.0 ; Pain in right foot M79.671 ; Charcot gait R26.0 ; Edema, lower extremity R60.0 and Stasis dermatitis I87.[address] [address] 10/23/2023 Ronel Black Type 2 diabetes mellitus with diabetic polyneuropathy E11.42 ; Tinea unguium B35.1 ; Charcot gait R26.0 and Pressure injury of right foot, unstageable L89.890 [facility] [address] [place] [address] 02/12/2024 Ronel Leon Assessments Encounter Date Diagnosis (ICD Code) Assessment Notes Treatment Notes Treatment Clinical Notes Section Notes 02/17/2023 Type 2 diabetes mellitus with diabetic polyneuropathy (ICD-10 - E11.42) 02/17/2023 Unsteady gait (ICD-10 - R26.81) 06/19/2023 Type 2 diabetes mellitus with diabetic polyneuropathy (ICD-10 - E11.42) 10/23/2023 Tinea unguium (ICD-10 - B35.1) 10/23/2023 Type 2 diabetes mellitus with diabetic polyneuropathy (ICD-10 - E11.42) 06/19/2023 Tinea unguium (ICD-10 - B35.1) 06/19/2023 Plantar wart (ICD-10 - B07.0) 10/23/2023 Charcot gait (ICD-10 - R26.0) 02/17/2023 Tinea unguium (ICD-10 - B35.1) 10/23/2023 Pressure injury of right foot, unstageable (ICD-10 - L89.890) 06/19/2023 Pain in right foot (ICD-10 - M79.671) 02/17/2023 Plantar wart (ICD-10 - B07.0) 06/19/2023 Charcot gait (ICD-10 - R26.0) 02/17/2023 Pain in right foot (ICD-10 - M79.671) 06/19/2023 Edema, lower extremity (ICD-10 - R60.0) 02/17/2023 Charcot gait (ICD-10 - R26.0) 06/19/2023 Stasis dermatitis (ICD-10 - I87.2) 02/17/2023 Other Plan Of Treatment Pending Test Test Name Order Date Hemoglobin A1c 06/04/2018 56743-LFTNQFL NAIL, 6 OR MORE 10/23/2023 53875-HYWFSXA NAIL, 6 OR MORE 06/19/2023 18470-MLGZAOB NAIL, 6 OR MORE 02/17/2023 59847-XIJNLIQ NAIL, 6 OR MORE 02/07/2022 53669-STIZODD NAIL, 6 OR MORE 06/13/2022 18259-BNWFMNI NAIL, 6 OR MORE 10/17/2022 29350-HVBHTPG NAIL, 6 OR MORE 03/12/2018 93735-DMXGJOO NAIL, 6 OR MORE 11/27/2017 33705-WLDJIVI NAIL, 6 OR MORE 06/04/2018 35395-MUJASOL NAIL, 6 OR MORE 07/12/2021 15374-JKPQXXM NAIL, 6 OR MORE 10/25/2021 65310-RQCCZGY NAIL, 6 OR MORE 11/30/2014 54346-EVQGKFO NAIL, 6 OR MORE 02/06/2015 81909-DANHQGA NAIL, 6 OR MORE 05/01/2015 59643-YQUMEQS NAIL, 6 OR MORE 07/10/2015 22238-TERZBBG NAIL, 6 OR MORE 10/02/2015 17926-TBYMQLR NAIL, 6 OR MORE 12/14/2015 99374-YEMQPYX NAIL, 6 OR MORE 02/22/2016 69787-MDIFCIH NAIL, 6 OR MORE 05/30/2016 36506-YXZQWNL NAIL, 6 OR MORE 08/29/2016 10965-QRNPMHT NAIL, 6 OR MORE 11/28/2016 73696-QRLOCFW NAIL, 6 OR MORE 02/27/2017 97285-PEDGSHX NAIL, 6 OR MORE 05/29/2017 68121-FGHDBWS NAIL, 6 OR MORE 08/28/2017 47762-RJXYIHL NAIL, 6 OR MORE 12/05/2010 22100-WDNKWTW NAIL, 6 OR MORE 02/06/2011 01699-NLGVTBT NAIL, 6 OR MORE 04/22/2011 74599-XOFGODC NAIL, 6 OR MORE 07/15/2011 80958-NKYKNLR NAIL, 6 OR MORE 09/25/2011 15263-SIBEJCH NAIL, 6 OR MORE 10/28/2011 43936-EPICGVK NAIL, 6 OR MORE 01/16/2012 50441-YWTXAIP NAIL, 6 OR MORE 04/08/2012 64478-VRWOMSE NAIL, 6 OR MORE 06/24/2012 52385-WUWKHNJ NAIL, 6 OR MORE 09/23/2012 91065-EDERXKK NAIL, 6 OR MORE 12/28/2012 22798-RFOXKOX NAIL, 6 OR MORE 03/31/2013 03735-QHHLAKJ NAIL, 6 OR MORE 06/14/2013 71512-CBXAIPR NAIL, 6 OR MORE 09/20/2013 52575-PXYQLFA NAIL, 6 OR MORE 12/22/2013 48657-IFYKDUL NAIL, 6 OR MORE 03/21/2014 31074-OYXHVYW NAIL, 6 OR MORE 06/20/2014 99065-VVONXCH NAIL, 6 OR MORE 09/21/2014 14060-Ltig Destruction, 1-14 06/13/2022 26888-Czrm Destruction, -10/17/2022 29966-Lgps Destruction, -02/17/2023 63940-Indo Destruction, -06/19/2023 52079-Madualhd Plate 07/12/2021 16384-Oydltrjm Plate 10/25/2021 40281-Frjjykvo Plate 05/29/2017 71709-Lbbqciho Plate 08/29/2016 11574-Gfgvgsmu Plate 11/30/2014 11176-Josmtahl Plate 09/21/2014 70137-Ewjqaqgl Plate 06/14/2013 32601-Dnishxob Plate 06/20/2014 80372-Mqkihxpp Plate 03/21/2014 76264-Juaojgzh Plate 12/22/2013 14766-Rcdbeofq Plate 09/20/2013 94782- Debride <25 sq cm 09/20/2013 70804- Debride <25 sq cm 12/22/2013 94085- Debride <25 sq cm 06/14/2013 01368- Debride <25 sq cm 03/31/2013 37544- Debride <25 sq cm 03/21/2014 05908- Debride <25 sq cm 06/20/2014 19374- Debride <25 sq cm 09/21/2014 88217- Debride <25 sq cm 12/28/2012 43457- Debride <25 sq cm 09/23/2012 51584- Debride <25 sq cm 06/24/2012 00429- Debride <25 sq cm 04/08/2012 46819- Debride <25 sq cm 01/16/2012 01928- Debride <25 sq cm 10/28/2011 87666- Debride <25 sq cm 09/02/2011 25398- Debride <25 sq cm 09/25/2011 18801- Debride <25 sq cm 12/26/2010 92976- Debride <25 sq cm 02/22/2016 99030- Debride <25 sq cm 12/14/2015 14718- Debride <25 sq cm 10/02/2015 91878- Debride <25 sq cm 10/12/2015 76704- Debride <25 sq cm 10/06/2014 12773- Debride <25 sq cm 05/30/2016 33513- Debride <25 sq cm 02/27/2017 63811- Debride <25 sq cm 10/25/2021 05648- Debride <25 sq cm 02/07/2022 80388- Debride <25 sq cm 10/17/2022 25006-YUIANJH SKIN/TISSUE 03/12/2018 83625-LJZHXCL SKIN/TISSUE 06/04/2018 74499-FFCNZMP SKIN/TISSUE 11/27/2011 80233-SFYJWIY SKIN/TISSUE 12/11/2011 60568-EREIHHZ SKIN/TISSUE 10/06/2014 01479 I&D ABSCESS- SIMPLE,SINGLE 015 58375 I&D ABSCESS- SIMPLE,SINGLE 011 30308 I&D ABSCESS- SIMPLE,SINGLE 015 38235-TMWJ SKIN LESIONS, OVER 4 12/01/19 15 39403-NKXX SKIN LESIONS, OVER 4 02/07/20 15 28004-HXMJ SKIN LESIONS, OVER 4 07/10/19 16 05945-KDUN SKIN LESIONS, OVER 4 05/01/19 16 12465-GPIY SKIN LESIONS, OVER 4 10/02/19 16 83111-AUOX SKIN LESIONS, OVER 4 12/14/19 16 77161-UWGC SKIN LESIONS, OVER 4 02/22/20 16 26753-LJAX SKIN LESIONS, OVER 4 02/28/20 17 63069-OQMX SKIN LESIONS, OVER 4 05/30/19 18 88712-GZYB SKIN LESIONS, OVER 4 08/29/19 18 84740-DQAF SKIN LESIONS, OVER 4 11/28/19 18 52056-HGRC SKIN LESIONS, OVER 4 05/31/19 17 96336-YHIC SKIN LESIONS, OVER 4 11/29/19 17 54055-JPZP SKIN LESIONS, OVER 4 06/05/19 19 04132-WDHV SKIN LESIONS, OVER 4 03/12/19 19 71133-AFOD SKIN LESIONS, OVER 4 10/18/19 23 34430-MRYL SKIN LESIONS, OVER 4 06/14/19 23 64376-GEUK SKIN LESIONS, OVER 4 02/18/20 23 08219-CLFW SKIN LESIONS, OVER 4 06/19/19 24 69309-UFLI SKIN LESIONS, OVER 4 10/23/19 24 39188-HWUU SKIN LESIONS, OVER 4 12/06/19 11 72666-LMVW SKIN LESIONS, OVER 4 02/07/20 11 68144-WXOF SKIN LESIONS, OVER 4 07/15/19 12 15340-ERXR SKIN LESIONS, OVER 4 04/22/19 12 06331-PKUD SKIN LESIONS, OVER 4 09/25/19 12 51137-IYEX SKIN LESIONS, OVER 4 10/28/19 12 49831-BURY SKIN LESIONS, OVER 4 09/24/19 13 70382-ATMY SKIN LESIONS, OVER 4 12/29/19 13 22991-DTPK SKIN LESIONS, OVER 4 01/16/20 12 05780-JRUO SKIN LESIONS, OVER 4 04/08/19 13 29137-AHFH SKIN LESIONS, OVER 4 06/25/19 13 43842-XUPT SKIN LESIONS, OVER 4 09/22/19 15 76863-CJEI SKIN LESIONS, OVER 4 03/21/19 15 45295-XOYS SKIN LESIONS, OVER 4 06/21/19 15 57474-QRPA SKIN LESIONS, OVER 4 03/31/19 14 97453-GOIA SKIN LESIONS, OVER 4 06/15/19 14 49327-JDYC SKIN LESIONS, OVER 4 12/23/19 14 29819-LYVG SKIN LESIONS, OVER 4 09/21/19 14 56116-MESP SKIN LESIONS, 2 TO 4 12/23/19 14 11106-WDHA SKIN LESIONS, 2 TO 4 06/15/19 14 93257-CFMK SKIN LESIONS, 2 TO 4 03/31/19 14 88801-RPSR SKIN LESIONS, 2 TO 4 06/21/19 15 59235-ZDDV SKIN LESIONS, 2 TO 4 03/21/19 15 65351-WANX SKIN LESIONS, 2 TO 4 12/29/19 13 19699-XXTC SKIN LESIONS, 2 TO 4 09/24/19 13 00028-OMAM SKIN LESIONS, 2 TO 4 07/13/19 22 92907-EHSH SKIN LESIONS, 2 TO 4 02/08/20 22 57318-WBCN SKIN LESIONS, 2 TO 4 10/26/19 22 09264-BGSE SKIN LESIONS, 2 TO 4 08/30/19 17 25276-Aegb. Subungual Hematoma 2 09601-Ycuw. Subungual Hematoma 2 Next Appt Details Provider Name:Ronel Leon , 04/19/2024 10:15:00 AM, [address] [place], [address], Insurance Providers Payer Name Payer Address Payer Phone Subscriber Number Group Number Insured Name Patient Relationship to Insured Coverage Start Date Coverage End Date Medicare National Govt [employer] [address] [place] [address] [id number] Leonardo Pang Self - patient is the insured Prevoty [address] [place] [address] [id number] Leonardo Pang Self - patient is the insured Medical (General) History Medical History History ICD Code osteoporosis hypertension diabetes mellitus back, hip, knee pain Arthritis Cholesterol Surgical History Surgery Date(Month/Year) hip surgery 119/1996 cocculer ear implant 12/2013 colonoscopy 05/2017 left knee replacement 12/27 Hospitalization History Reason Date(Month/Year) [facility] [place] on foot 08/28/23 [facility] for a-fib 10/23/19 12
--- OUTSIDE RECORDS SUMMARY | 2024-02-18 01:03 | XMS_ITS | Patient Health Record ---
Author Organization [facility] Address [address] [place] [address] Care Team Providers Care Gas Singer Name Role Phone Darien Bruner MD Primary Care Provider Griffin Alvarenga Jr Unavailable ALLERGIES Allergen (clinical drug ingredient) Drug/Non Drug Allergy documented on EMR Reaction Allergy Type Onset Date Status PCN (uncoded) Unknown Allergy Active REASON FOR REFERRAL No Information MEDICATIONS Medication SIG (Take, Route, Frequency, Duration) Notes Start Date End Date Status Carvedilol 12.5 MG 1 Orally BID Active Vitamin D3 25 MCG (1000 UT) 1 tablet Orally Once a day for 30 day(s) Active Warfarin Sodium 6 MG as directed Orally Once a day Active Tamsulosin HCl 0.4 MG 1 capsule Orally O nce a day Active Pravastatin Sodium 80 MG 1 tablet Orally Once a day Active Iron 325 (65 Fe) MG 1 tablet Orally Once a day Active Multi Vitamin - 1 tablet Orally Once a day for 30 day(s) Active Lantus SoloStar 100 UNIT/ML 25 units Subcutaneous QHS Ac tive glipiZIDE 5 MG 2 tablet Orally Twic e a day Active metFORMIN HCl 500 MG 2AM,1PM Orally Twice a day Active Furosemide 40 MG 1 tablet Orally Once a day Active oxyCODONE-Acetaminophen 5-325 MG 1 tablet as needed Orally 5 x a day Active MiraLax (colon prep) 17 GM/SCOOP mixed with Gatorade or Crystal Light Orally begin at 5:00 p.m. the day before the procedure for 1 day 08/28/2022 Active Centrum Silver - 1 Orally QD A ctive dilTIAZem HCl ER 240 MG 1 capsule on an empty stomach in the morning Orally Once a day Active Digoxin 0.25 MG/ML 1 tablet Orally Once a day Active IMMUNIZATIONS Vaccine Route Administration Date Status Comme nts Influenza Unknown 01/01/2022 Administered SOCIAL HISTORY Sex Assigned At : Social History Observation Description Sex Assigned At Unknown PROBLEMS Problem Type ICD Code Onset Dates Problem Status W/U Status Risk SNOMED Code Notes Problem Colon cancer screening (Z12.11) Active confirmed 574349078 Problem shelter (current) use of anticoagulants (Z79.01) Active confirmed 888482182 Problem Personal history of colonic polyps (Z86.010) Active confirmed 750305407 Problem Encounter for other preprocedural examination (Z01.818) Active confirmed 24287735 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) Active confirmed 324938548 PLAN OF TREATMENT Pending Test Test Name Order Date XR BARIUM ENEMA 11/18/2022 Future Test Test Name Order Date COLONOSCOPY 07/31/2011 COLONOSCOPY 02/07/2017 COLONOSCOPY 08/28/2022 Insurance Providers Payer Name Payer Address Payer Phone Subscriber Number Group Number Insured Name Patient Relationship to Insured Coverage Start Date Coverage End Date MEDICARE OF [place] [address] [place] [address] [phone] [id number] KAZ GRIFFIN Self - patient is the insured [employer] ATT[employer] CLAIMS [address] [place] [address] [id number] KAZ GRIFFIN Self - patient is the insured MEDICAL (GENERAL) HISTORY Medical History History ICD Code EGD 08/11/2002 Gastroesophageal reflux dise ase, EGD 08/11/02, no H. pylori or Dsouza's esophagus Lipoma removals Hyperlipidemia Diabetes Mellitus knee pain Bilateral hip replacement Atrial fibrillation Arthritis Surgical History Surgery Date(Month/Year) Bilateral hip replacement shoulder replacement-left cochlear implant 2 knee replacements
--- OUTSIDE RECORDS SUMMARY | 2024-02-18 01:03 | XMS_ITS ---
Author Organization [facility] Address [address] [place] [address] Care Team Providers Care Activities Attendant Name Role Phone Darien Bruner MD Primary Care Provider Unavaila Griffin Torres Jr REASON FOR VISIT incomplete colonoscopy Encounters Encounter Location Date Provider Diagnosis [facility] [address] [place] [address] 11/01/2022 Griffin Donahue Jr PLAN OF TREATMENT No Information
== END 2024-02-12 10:14 | disposition home or self-care (01) ==
LOC: HO.ACS 09:44
PROVIDERS: PCP Internal Medicine; Visit Provider Internal Medicine
DX: Z79.01 Long term (current) use of anticoagulants (principal)

== ENCOUNTER → 2024-02-12 09:44 | Outpatient (BNVA) | payer MEDICARE, SELFPAY | PROVIDERS: PCP Internal Medicine; Visit Provider Internal Medicine | DX: I48.20 Chronic atrial fibrillation, unspecified (principal); Z79.01 Long term (current) use of anticoagulants; Z51.81 Encounter for therapeutic drug level monitoring | CPT/HCPCS: 85610; 99211 ==

== ENCOUNTER 2024-02-18 08:37 | Day surgery (SDC) | payer MEDICARE, SELFPAY ==
[2024-02-04 10:01] VITALS: BMI 39.5
--- NOTE | 2024-02-04 13:19 | HO.ANESPROP2 ---
Documented by User: Starr Veloz NP 02/04/24 13:24 HPI - Anesthesia Eval Consult details Narrative: 73yo M for Repair of Hernia Umbilical Reducible hernia with mesh Cochlear implant L ear Cardiac optimized. Follows for afib (warfarin), CHF, NSVT - cath 12/2023 minimal irregularities in the LAD but otherwise normal coronary arteries. Normal LVEDP. PMFSH Active Problems Active Problems: All Active Problems Preoperative cardiovascular examination (Acute) Umbilical hernia (Acute) Abnormal myocardial perfusion study (Acute) Cellulitis (Acute) Diabetic foot ulcer (Acute) Osteoarthritis of hands, bilateral (Acute) Neuropathy (Acute) Bilateral hand numbness (Acute) PVC (premature ventricular contraction) (Acute) Chronic right heart failure (Acute) Radiculitis of left cervical region (Acute) Spondylosis of lumbar region without myelopathy or radiculopathy (Acute) Acute on chronic right heart failure (Acute) Status post total left knee replacement (Acute) Current use of anticoagulant therapy (Acute) JUDIE (obstructive sleep apnea) (Acute) Type 2 diabetes mellitus with unspecified complications (Acute) Essential hypertension (Acute) Persistent atrial fibrillation (Acute) Past Medical History Medical History (Updated 02/04/24 @ 10:06 by Edith Hall, MARTI) Foot ulcer, right Ambulates with cane Cochlear implant in place Type 2 diabetes mellitus with unspecified complications Essential hypertension Persistent atrial fibrillation Osteoarthritis of left knee Deafness in left ear JUDIE (obstructive sleep apnea) Osteoarthritis Anemia Venous stasis Hard of hearing Obesity GERD (gastroesophageal reflux disease) BPH (benign prostatic hyperplasia) Diabetes Peripheral edema Atrial fibrillation COPD (chronic obstructive pulmonary disease) Chronic a-fib Family History Family History Father No problems noted. Mother Stroke Surgical History Surgical History Hx of total knee arthroplasty History of amputation of toe Hx of total shoulder replacement Hx of colonoscopy History of bilateral hip replacements Uses cochlear implant History of Problems with Anesthesia: No Social History Social History (Updated 02/04/24 @ 10:07 by Edith Hall, MARTI) Household Members: Spouse Housing: House Are you a primary pediatric critical care nurse to a significant other at home: No Do you presently have visiting nurse or other home services: No Alcohol intake: never Patient Tobacco Use Status: Former Tobacco user Tobacco use type: Cigarette Smoked in Last 30 Days: No Second Hand Smoke Exposure: No Use of substances other than those prescribed or required for medical reasons: No Have you been hit, kicked, punched, or otherwise hurt by someone within the past year? 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 Meds Allergies Allergy/AdvReac Type Severity Reaction Status Date / Time Penicillins [PENICILLINS] Allergy Intermediate rash- Verified 02/12/24 09:49 STATES BAD RXN CHILD Home Medications ?Medication ?Instructions ?Recorded ?Confirmed ?Last Taken ?Type pravastatin 80 mg tablet 80 mg PO BEDTIME 12/31/19 02/12/24 Unknown History tamsulosin 0.4 mg capsule 0.4 mg PO DAILY@1700 12/31/19 02/12/24 Unknown History cholecalciferol (vitamin D3) 25 50 mcg PO DAILY 05/08/20 02/12/24 09/05/23 History mcg (1,000 unit) capsule ivppzbcjgeuu-cjcbugow-hrfnma tablet 1 tab PO DAILY 05/08/20 02/12/24 09/05/23 History oxycodone-acetaminophen 5 mg-325 1 tab PO 5XD PRN Pain 05/08/20 02/12/24 Unknown History mg tablet blood sugar diagnostic #10 ea 06/12/20 02/12/24 Unknown History pen needle, diabetic 31 gauge x #50 ea 06/12/20 02/12/24 Unknown History 3/16 carvedilol 12.5 mg tablet 12.5 mg PO DAILY 09/06/23 02/12/24 09/05/23 History furosemide 40 mg tablet 40 mg PO SUTUTHSA@0909/06/23 02/12/24 Unknown History glipizide 5 mg tablet, extended 10 mg PO BID 09/06/23 02/12/24 09/05/23 History release 24 hr metformin 500 mg tablet,extended 500 mg PO .@1400 09/06/23 02/12/24 Unknown History release 24 hr metolazone 2.5 mg tablet 2.5 mg PO SA@0900 09/06/23 02/12/24 Unknown History warfarin 2 mg tablet 6 mg PO DAILY@1800 10/07/23 02/12/24 Unknown History warfarin 4 mg tablet 4 mg PO DAILY@1800 10/08/23 02/12/24 Unknown History furosemide 80 mg tablet 80 mg PO .MONWEDFRI@0900 02/04/24 02/12/24 Unknown History metformin 1,000 mg tablet 1,000 mg PO .QAM 02/04/24 02/12/24 Unknown History Exam Height,Weight and Vital Signs: Height 5 ft 8 in Weight 117.934 kg Pertinent Lab Results Pertinent Lab Results: Laboratory Tests 01/13/24 07:46 WBC 10.9 H Hgb 13.3 L Hct 39.4 L Plt Count 221 Sodium 139 Potassium 4.3 Chloride 97 Carbon Dioxide 31 H BUN 27 H Creatinine 1.13 Narrative Narrative: NM cardiolite stress test 11/2023 Impression: 1. Myocardial perfusion imaging study shows mild intensity small area of mid and distal anterior wall ischemia 2. Gated LVEF is 72% 3. Transient ischemic dilatation not present Cath 12/2023 nml, as above ECHO 11/2023 Conclusions: - The left ventricular systolic function is normal. The visually estimated ejection fraction is between 60-65%. - There is moderate mitral annular calcification. - There is mild to moderate tricuspid valve regurgitation. - The inferior vena cava is dilated and collapses less than 50% with inspiration. Assessment and Plan Assessment Anesthesia Assessment: Chart Reviewed Final Anesthetic Review History of Problems with Anesthesia: No Documented by User: Tiki Cabral MD 02/18/24 09:52 [facility] Past Medical History Medical History (Updated 02/04/24 @ 10:06 by Edith Hall RN) Foot ulcer, right Ambulates with cane Cochlear implant in place Type 2 diabetes mellitus with unspecified complications Essential hypertension Persistent atrial fibrillation Osteoarthritis of left knee Deafness in left ear JUDIE (obstructive sleep apnea) Osteoarthritis Anemia Venous stasis Hard of hearing Obesity GERD (gastroesophageal reflux disease) BPH (benign prostatic hyperplasia) Diabetes Peripheral edema Atrial fibrillation COPD (chronic obstructive pulmonary disease) Chronic a-fib Family History Family History Father No problems noted. Mother Stroke Family history of problems with anesthesia: No Surgical History Surgical History Hx of total knee arthroplasty History of amputation of toe Hx of total shoulder replacement Hx of colonoscopy History of bilateral hip replacements Uses cochlear implant Social History Social History (Updated 02/04/24 @ 10:07 by Edith Hall RN) Household Members: Spouse Housing: House Are you a primary pediatric critical care nurse to a significant other at home: No Do you presently have visiting nurse or other home services: No Alcohol intake: never Patient Tobacco Use Status: Former Tobacco user Tobacco use type: Cigarette Smoked in Last 30 Days: No Second Hand Smoke Exposure: No Use of substances other than those prescribed or required for medical reasons: No Have you been hit, kicked, punched, or otherwise hurt by someone within the past year? 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 Meds Allergies Allergy/AdvReac Type Severity Reaction Status Date / Time Penicillins [PENICILLINS] Allergy Intermediate rash- Verified 02/12/24 09:49 STATES BAD RXN CHILD Home Medications ?Medication ?Instructions ?Recorded ?Confirmed ?Last Taken ?Type pravastatin 80 mg tablet 80 mg PO BEDTIME 12/31/19 02/12/24 Unknown History tamsulosin 0.4 mg capsule 0.4 mg PO DAILY@1700 12/31/19 02/12/24 Unknown History cholecalciferol (vitamin D3) 25 50 mcg PO DAILY 05/08/20 02/12/24 09/05/23 History mcg (1,000 unit) capsule vrsbuiioprqh-maqrrcbj-yxfxwp tablet 1 tab PO DAILY 05/08/20 02/12/24 09/05/23 History oxycodone-acetaminophen 5 mg-325 1 tab PO 5XD PRN Pain 05/08/20 02/12/24 Unknown History mg tablet blood sugar diagnostic #10 ea 06/12/20 02/12/24 Unknown History pen needle, diabetic 31 gauge x #50 ea 06/12/20 02/12/24 Unknown History / carvedilol 12.5 mg tablet 12.5 mg PO DAILY 09/06/23 02/12/24 09/05/23 History furosemide 40 mg tablet 40 mg PO SUTUTHSA@0900 09/06/23 02/12/24 Unknown History glipizide 5 mg tablet, extended 10 mg PO BID 09/06/23 02/12/24 09/05/23 History release 24 hr metformin 500 mg tablet,extended 500 mg PO .@1400 09/06/23 02/12/24 Unknown History release 24 hr metolazone 2.5 mg tablet 2.5 mg PO SA@0900 09/06/23 02/12/24 Unknown History warfarin 2 mg tablet 6 mg PO DAILY@1800 10/07/23 02/12/24 Unknown History warfarin 4 mg tablet 4 mg PO DAILY@1800 10/08/23 02/12/24 Unknown History furosemide 80 mg tablet 80 mg PO .MONWEDFRI@0900 02/04/24 02/12/24 Unknown History metformin 1,000 mg tablet 1,000 mg PO .QAM 02/04/24 02/12/24 Unknown History Exam Airway Mallampati Class: III TM Dist: >3cm Neck ROM: Full Partial: Upper Assessment and Plan Assessment Anesthesia Assessment: Anesthesia Plan Discussed Final Anesthetic Review Family History of Problems with Anesthesia: No NPO: Yes ASA Class: III Final Preanesthetic Review: No Changes in Pt Med Stat, Meds/Allgs Chart Reviewed, Consent Obtained/Reviewed and Anes Risks/Benef Reviewed Patient Risk: Intermediate Procedure Risk: Low Anesthetic Plan Anesthetic Plan: GA Disposition: Standard PACU
[2024-02-18 09:31] VITALS: BP 122/50; PULSE 64; RESP 16; TEMP 36.4; O2SAT 97
[2024-02-18 09:38] VITALS: BMI 39.5
[2024-02-18 09:40] LABS: Glucose, Whole Blood 148 mg/dL (60-115)
--- NOTE | 2024-02-18 09:45 | P.HPSUR_ITS ---
Pre-Procedural Eval Section A - 24 Hr Update-Section A only Date of Service: 02/18/24 The patient is an INPATIENT: No Changes since office visit: Yes Patient answered all questions; No Cold of Flu in the past 2 weeks, No New Medical Problems and No Changes in Medication The patient has been examined within 24 hours of the surgical procedure. The History & Physical has been completed within 30 days and I have reviewed it.: No Section B - Complete if H&P > 30 days Chief Complaint: Umbilical hernia without obstruction or gangrene Details of Present Illness: No changes since office visit Relevant Family History (Specify if Yes): No Relevant Social History: None Present Medications: see Short Stay Collaborative assessment Medical History: Significant History (a. fib, anticoag, DM, HTN, GERD, TYONEK, JUDIE, OA) History of Previous Operations: No relevant previous surgery Allergies: Allergies Allergy/AdvReac Type Severity Reaction Status Date / Time Penicillins [PENICILLINS] Allergy Intermediate rash- Verified 02/12/24 09:49 STATES BAD RXN CHILD Review of Systems Sugical H&P ROS: Negative: Constitution, Cardiovascular, Respiratory, Gastro intestinal (umbilical hernia) and Genitourinary Exam Surgical H&P Exam: Normal: Heart, Normal: Lungs, Normal: Abdomen and Normal: Skin Plan Diagnosis/Plan: Unchanged I have reviewed the history and physical and performed a pertinent physical examination on my patient. No changes have occurred unless specified. Time Spent With Patient Time: Total time managing care of this patient today ____ minutes.
[2024-02-18] MEDS: vancomycin HCL 1,500 MG in 0.9 % Sodium Chloride 500 ML 333.33 MG IV (09:52)
[2024-02-18] MEDS: Lactated Ringers 1,000 ML 100 ML IVCONT (09:52)
[2024-02-18 10:04] LABS: INTERNATIONAL NORM RATIO 1.1 (0.9-1.1); Prothrombin Time 12.4 SEC (10.9-12.4)
--- NOTE | 2024-02-18 11:26 | P.OP_ITS ---
Operative Note Operative Note Date of Service: 02/18/24 Narrative: Preoperative diagnosis: Umbilical hernia, reducible Postoperative diagnosis: Same Procedure: Repair of reducible umbilical hernia with mesh Surgeon: Leonardo Garza MD Detail Supervisor: Susan Do PA-C Anesthesia: General LMA Indications for procedure: 73-year-old male patient presenting with a painful umbilical hernia which is increasing in size and causing discomfort. Operative findings: Reducible umbilical hernia measuring 4 cm in diameter repaired with a 6.4 cm round Ventralex mesh Specimen: None Estimated blood loss: 2 mL Complications: None Procedure details: Patient was brought to the OR and placed in a supine position. After administering general anesthesia the patient's abdomen was prepped with ChloraPrep and draped in a sterile fashion. A surgical time-out was called the consent confirmed. Patient received preoperative antibiotics and Venodyne boots were in place. Local anesthesia consisting of 0.5% Sensorcaine was infiltrated over the umbilicus in a curvilinear fashion. Incision was then made with a scalpel carried out through subcutaneous tissue up to the hernia sac. Hernia sac was then dissected down to the fascia. Umbilical skin was then dissected off the fascia using electrocautery. Hernia sac was then dissected down to the fascial defect and reduced into the abdominal cavity. A preperitoneal space was then created using electrocautery and blunt dissection. A 6.4 cm round Ventralex mesh was then obtained. This was deployed within the preperitoneal space and secured in 4 quadrants using a 0 Tycron suture. Fascia was then closed over the mesh using [id number] 0 Tycron sutures. Wounds were irrigated with saline solution and suctioned dry. Additional local was infiltrated in the subcutaneous tissue and muscle tissue. Umbilical skin was then reattached to the fascia using a 3-0 Polysorb suture. Dermis was closed using interrupted 3-0 Polysorb sutures. Skin was then closed using a running subcuticular 4-0 Polysorb suture. Steri-Strips, 2 x 2 gauze and Tegaderm were then applied. The patient tolerated the procedure well. Sponge, instrument, and needle counts reported as correct. The patient was transferred to PACU in stable condition.
[2024-02-18 11:34] VITALS: BP 151/66; PULSE 59; RESP 16; TEMP 36.4; O2SAT 100
[2024-02-18 11:35] VITALS: BP 126/74; PULSE 60; RESP 16; O2SAT 100
[2024-02-18 11:40] VITALS: BP 116/69; PULSE 61; RESP 16; O2SAT 100
[2024-02-18 11:45] VITALS: BP 106/70; PULSE 76; RESP 16; O2SAT 98
[2024-02-18 12:00] VITALS: BP 128/87; PULSE 58; RESP 16; TEMP 36.4; O2SAT 98
== END 2024-02-18 12:42 | disposition home or self-care (01) ==
PROVIDERS: Nurse Practitioner; PCP Internal Medicine; Visit Provider Surgery
PROC: (CPT 49593; principal; 2024-02-18 10:30)
DX: K42.9 Umbilical hernia without obstruction or gangrene (principal); K21.9 Gastro-esophageal reflux disease without esophagitis; I48.19 Other persistent atrial fibrillation; D64.9 Anemia, unspecified; I50.812 Chronic right heart failure; I11.0 Hypertensive heart disease with heart failure; I49.3 Ventricular premature depolarization; E11.9 Type 2 diabetes mellitus without complications; I87.8 Other specified disorders of veins; Z89.422 Acquired absence of other left toe(s); G47.33 Obstructive sleep apnea (adult) (pediatric); J44.9 Chronic obstructive pulmonary disease, unspecified; E66.9 Obesity, unspecified; Z68.38 Body mass index [BMI] 38.0-38.9, adult; Z79.01 Long term (current) use of anticoagulants; Z79.84 Long term (current) use of oral hypoglycemic drugs; Z79.899 Other long term (current) drug therapy; Z88.0 Allergy status to penicillin; Z98.890 Other specified postprocedural states; Z87.891 Personal history of nicotine dependence
CPT/HCPCS: 49593; 36415; 82947; 85610; C1781; J0131; J2003; J2405; J2704; J3010; J3371

== ENCOUNTER → 2024-02-18 08:37 | Outpatient (BNV) | payer MEDICARE, SELFPAY | PROVIDERS: PCP Internal Medicine; Visit Provider Surgery | DX: K42.9 Umbilical hernia without obstruction or gangrene (principal) | CPT/HCPCS: 49593 ==

== ENCOUNTER 2024-02-27 07:53 | Outpatient (AMB) | payer MEDICARE, SELFPAY ==
--- OUTSIDE RECORDS SUMMARY | 2024-02-27 07:55 | XMS_ITS | Data Portability ---
Author Organization [place] [facility], All[facility] Address [address] [address] Care Team Providers Care Site Interpreter Name Role Phone EMMA THOMAS Primary Care Provider [phone] Assessment Encounter Date Assessment Date Assessment LastModified [...] Gastroeso phageal reflux disease without esophagit is 591085143 Active 2014 Gastro-eso phageal reflux disease without esophagiti s; Note: Date Diagnosed: 01/16/2015 10:07 AM (K21.9) Not Available [facility] 4 02:31:43 Sensorine ural hearing loss of bilateral ears 518041302 Active 2013 SNHL Bilaterall y; CMS Risk: low risk Note: Date Diagnosed: 12/10/2013 9:18 AM (389.18) Not Available [facility] 4 02:31:47 Deviated nasal septum 826291597 Active 2014 Septal Deviation; Note: Date Diagnosed: 08/05/2014 11:13 AM (470) ; Start Date : 08/05/2014 Deviated nasal septum; Note: Date Diagnosed: 01/16/2015 9:52 AM (J34.2) Not Available [facility] 4 02:31:48 Bilateral sensory hearing loss 996714142 Active 2013 Hearing loss: Sensory hearing loss, bilateral; Location: left Note: Date Diagnosed: 12/16/2013 11:26 AM (389.11) Not Available [facility] 4 02:31:45 Simple obesity 298445711 Active 2016 Other obesity due to excess calories; Note: Date Diagnosed: 10/09/2016 1:21 PM (E66.09) Not Available [facility] 4 02:31:33 Postopera tive follow-up visit Active 2013 Post op; Note: Date Diagnosed: 12/16/2013 11:26 AM (V67.00) Not Available [facility] 4 02:31:42 Hypertrop hy of nasal turbinate s 33475280 Active 2014 Nasal turbinate hypertroph y; Note: Date Diagnosed: 02/16/2014 12:31 PM (478.0) ; Start Date : 02/16/2014 Hypertrop hy of nasal turbinates ; Note: Date Diagnosed: 01/16/2015 9:52 AM (J34.3) Not Available [facility] 4 02:31:37 Obstructi ve sleep apnea syndrome 26173918 Active 2015 Obstructiv e sleep apnea (adult) (pediatric ); Note: Date Diagnosed: 05/04/2015 4:55 PM (G47.33) Not Available [facility] 4 02:31:48 Allergic rhinitis caused by pollen 36361184 Active 2013 Vasomotor rhinitis; Note: Date Diagnosed: 01/10/2014 2:23 PM (477.0) Not Available [facility] 4 02:31:46 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 Procedures Surgical History None recorded. Imaging Results Imaging Date Name Status LastModified by Organiz [facility] Details LastModified Time 04/27/2021 imaging/diag nostic result completed Information not available 10/28/2023 21:36:47 06/01/2021 imaging/diag nostic result completed Information not available 10/28/2023 21:37:06 Procedure Notes None recorded. Medical Equipment None Reported. Allergies Allergen ID Allergen Name Allergen Category Reaction Reaction Severity Criticality Documentation Date Start Date Code Code System Note Provider Name and Address Organization Details Recorded Time 08767 Medicinal product containin g penicilli n and acting as antibacte rial agent (product) medicatio n other Not available Not available 07/22/2023 41643 05 SNOMED React ion: Unkno wn; Not Available [facility] 4 00:23:22 Medications Name Sig Start Date Stop Date Status Note LastModified by Organization Details LastModified Time furosemid e 40 mg tablet active Medicati on ID: [id number] B rand Name: furosemi de Send Method: E-Prescr ibed Sub s Allowed: subs OK Medic ationGen ericName : furosemi de Not Available Not Available Not Available metolazon e 2.5 mg tablet active Not Available Not Available Not Available metformin 500 mg tablet 05/11 completed Medicati on ID: [id number] Br and Name: metformi n Send Method: [...] ous solution 05/11 completed Medicati on ID: [id number] D uration Value: 28 Brand Name: Lantus U-100 Insulin Send Method: E-Prescr ibed Sub s Allowed: subs OK Speci al Instruct ion: INJECT 10 UNITS SUBCUTAN EOUSLY AT BEDTIME DISCAR D VIAL AFTER 28 DAYS Medic ationGen ericName : Lantus U-100 Insulin Not Available Not Available Not Available digoxin 250 mcg (0.25 mg) tablet 05/11 completed Medicati on ID: [id number] Br and Name: digoxin Send Method: E-Prescr ibed Sub s Allowed: subs OK Medic ationGen ericName : digoxin Not Available Not Available Not Available omeprazol e 40 mg capsule,d elayed release active Medicati on ID: [id number] B rand Name: omeprazo le Send Method: E-Prescr ibed Sub s Allowed: subs OK Medic ationGen ericName : omeprazo le Not Available Not Available Not Available tramadol 50 mg tablet 05/11 completed Medicati on ID: [id number] Br and Name: tramadol Send Method: E-Prescr ibed Sub s Allowed: subs OK Medic ationGen ericName : tramadol Not Available Not Available Not Available warfarin 4 mg tablet active Not Available Not Available Not Available Nexium 20 mg capsule,d elayed release 1 capsule by mouth once a day 05/11 completed Medicati on ID: [id number] Br and Name: Nexium S end Method: [...] 0.4 mg capsule active Medicati on ID: [id number] B rand Name: tamsulos in Send Method: E-Prescr ibed Sub s Allowed: subs OK Medic ationGen ericName : tamsulos in Not Available Not Available Not Available glipizide ER 2.5 mg tablet, extended release 24 hr 05/11 completed Medicati on ID: [id number] Br and Name: glipizid e Send Method: E-Prescr ibed Sub s Allowed: subs OK Medic ationGen ericName : glipizid e Not Available Not Available Not Available warfarin 2 mg tablet active Medicati on ID: [id number] B rand Name: warfarin Send Method: E-Prescr ibed Sub s Allowed: subs OK Medic ationGen ericName : warfarin Not Available Not Available Not Available fluticaso ne propionat e 50 mcg/actua tion nasal spray,andres pension 05/11 completed Medicati on ID: [id number] D uration Value: 30 Brand Name: fluticas one propiona te Send Method: E-Prescr ibed Sub s Allowed: subs OK Speci al Instruct ion: USE 1 SPRAY IN EACH NOSTRIL TWICE A DAY Medi cationGe nericNam e: fluticas one propiona te Not Available Not Available Not Available metformin ER 500 mg tablet,ex tended release 24 hr active Medicati on ID: [id number] B rand Name: metformi n Send Method: E-Prescr ibed Sub s Allowed: subs OK Medic ationGen ericName : metformi n Not Available Not Available Not Available ipratropi um bromide 21 mcg (0.03 %) nasal spray Inhale 2 spray into both nostrils three times a day as directed 05/11 completed Medicati on ID: [id number] Br and Name: Jessica Send Method: E-Prescr [...] mcg tablet 05/11 completed Medicati on ID: [id number] Br and Name: Centrum Silver Ultra Men's Se nd Method: E-Prescr ibed Sub s Allowed: subs OK Medic ationGen ericName : Centrum Silver Ultra Men's Not Available Not Available Not Available Vitals Date Recorded Body height Body mass index (BMI) Body weight Provider Name and Address Organization Details Last Updated DateTime 08/14/2023 172.72 cm 38 kg/m2 027065.09 g Tevin Koch [place] - [facility] 08/14/2023 10:01:01 Social History None recorded. Functional Status None recorded. Mental Status None recorded. Family History Nothing Reported. Medical History No medical history recorded. Past Encounters Encounter ID Performer Location Encounter Start Date Encounter Closed Date Diagnosis/Indication Diagnosis SNOMED-CT Code Diagnosis ICD10 Code [id number] RAMYA ARNDT MD [facility] [address] [place] [address] 08/14/2023 09:50:50 08/14/2023 10:16:30 Benign neoplasm of parotid gland 68723719 D11.0 Health Concerns Section Related Observation LastModified by Organization Detai ls LastModified Time None Recorded Concern Status LastModified by Organization Details LastModified Time None Recorded Advance Directives Directive None Recorded Payers Encounter Date Sequence Insurance Name Policy Number Policy Casarez Covered Member ID Casarez Member ID Guarantor Name 08/14/2023 2 [place] Leonardo Pang [id number] Leonardo Pang 08/14/2023 1 [place] B[place] [employer] Leonardo Pang [id number] Leonardo Pang Notes Date Note Type Note Provider Name and Address Organization Details Recorded Time 08/14/2023 text/html left parotid FNA 05/17/21 - warthin tumorct neck w contrast at [place] 04/27/21left parotid 2.8cm mass. compare with prior [...] cochlear implant with Dr Demetrio ARNDT MD [address] [place] [address], [place], [address], [facility] - [facility] 08/14/2023 10:15:11
[2024-02-27 08:07] LABS: Prothrombin Time Whole Bld POC 18.2 sec (11.1-13.5); ~PT, ~INR - Anti Coag Clinic 1.5 (0.9-1.1)
--- NOTE | 2024-02-27 08:14 | MHC.OFFVISCO ---
Intake Intake Visit Reasons: Anticoagulation Allergies Penicillins [PENICILLINS] Allergy (Intermediate, Verified 02/27/24 08:01) rash- STATES BAD RXN CHILD Medication List - Last Reconciled 02/27/24 by Sayra Adorno RN blood sugar diagnostic As directed carvedilol 12.5 mg PO DAILY cholecalciferol (vitamin D3) 50 mcg PO DAILY furosemide 40 mg PO SUTUTHSA@0900 furosemide 80 mg PO .MONWEDFRI@0900 glipizide ER 10 mg PO BID metformin 1,000 mg PO .QAM metformin ER 500 mg PO .@1400 metolazone 2.5 mg PO SA@0900 dagmcxhsavlj-cdqpotxr-tsllsj 1 tab PO DAILY oxycodone 5 mg PO Q6H PRN oxycodone-acetaminophen 5-325 mg 1 tab PO 5XD PRN pen needle, diabetic As directed pravastatin 80 mg PO BEDTIME tamsulosin 0.4 mg PO DAILY@1700 warfarin 6 mg See Protocol PO DAILY@1800 warfarin 4 mg See Protocol PO DAILY@1800 Nursing Note INR 1.5 out of therapeutic range Medications and supplements reviewed Patient status: Pt is s/p hernia repair 02/18/24 - helaing and doing well and was not able to resume warfarin until 02/20/24 only back on wrafarin 6 days - he had saurkraut over the weekend forgot it was cabbage that could lower his INR Medications or supplements: no changes - no pain Diet: good- moving bowels Denies any signs and symptoms of bleeding or clotting or unusual bruising Bleeding, bruising, clotting discussed Nutritional guidance given: avoid greens x 4 days Dose: 8mg x 2 days then 6mg daily F/U INR Date : 1 week per pt request ?? Patient verbalizing understanding of instructions given. will forward this msg to PCP and call with result and plan of care Anti-Coag Initial Assessment Social Hx Patient Tobacco Use Status: Former Tobacco user Tobacco use type: Cigarette alcohol intake: never Alcohol intake frequency: does not drink Coding Level of Care Code Est Patient Level 1 Diagnoses Current use of anticoagulant therapy Z79.01 Results AMB INR Fingerstick AMB INR Fingerstick 1.5 Last Edit by Sayra Adorno RN on 02/27/24 08:09 MANUAL ENTRY Assessment & Plan Assessment & Plan (1) Current use of anticoagulant therapy: Code(s): Z79.01 - intermediate card tender (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
== END 2024-02-27 08:18 | disposition home or self-care (01) ==
LOC: HO.ACS 07:53
PROVIDERS: PCP Internal Medicine; Visit Provider Internal Medicine
DX: Z79.01 Long term (current) use of anticoagulants (principal)

== ENCOUNTER → 2024-02-27 07:53 | Outpatient (BNVA) | payer MEDICARE, SELFPAY | PROVIDERS: PCP Internal Medicine; Visit Provider Internal Medicine | DX: Z48.815 Encounter for surgical aftercare following surgery on the digestive system (principal); I48.20 Chronic atrial fibrillation, unspecified; Z79.01 Long term (current) use of anticoagulants; Z51.81 Encounter for therapeutic drug level monitoring; Z98.890 Other specified postprocedural states | CPT/HCPCS: 85610; 99211; 99212 ==

== ENCOUNTER 2024-02-27 08:18 | Outpatient (AMB) | payer MEDICARE, SELFPAY ==
--- NOTE | 2024-02-27 09:12 | MHC.OFFVIS ---
Vital Signs 02/27/24 09:17 Height 5 ft 8 in Weight 259 lb 14.8 oz BMI 39.5 Respiration 16 Pulse 60 Intake Visit Reasons: s/p Rpr reducible umbilical hernia w/mesh Intake Note: Patient is seen in office for post op assessment post umbilical hernia repair. Pt c/o: denies any concerns surgery:02/18/24 Quarry Equipment Operator Required: No Accompanied by: Self / Same As Patient Allergies Penicillins [PENICILLINS] Allergy (Intermediate, Verified 02/27/24 09:16) rash- STATES BAD RXN CHILD HPI Comments Details: 73-year-old male status post repair of an umbilical hernia with mesh. He tolerated the procedure well and reports no abdominal pain at this time. He is eating well and denies any difficulty with his bowels. [facility] Medical History Foot ulcer, right Ambulates with cane Cochlear implant in place Type 2 diabetes mellitus with unspecified complications Essential hypertension Persistent atrial fibrillation Osteoarthritis of left knee Deafness in left ear JUDIE (obstructive sleep apnea) Osteoarthritis Anemia Venous stasis Hard of hearing Obesity GERD (gastroesophageal reflux disease) BPH (benign prostatic hyperplasia) Diabetes Peripheral edema Atrial fibrillation COPD (chronic obstructive pulmonary disease) Chronic a-fib Surgical History History of umbilical hernia repair (02/18/24) Hx of total knee arthroplasty History of amputation of toe Hx of total shoulder replacement Hx of colonoscopy History of bilateral hip replacements Uses cochlear implant Family History Father No problems noted. 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 No hernia or infection is identified. Inspection: Yes normal to inspection Neuro General: patient oriented x3 Extrem Other: No edema Results AMB INR Fingerstick AMB INR Fingerstick 1.5 Last Edit by Sayra Adorno RN on 02/27/24 08:09 MANUAL ENTRY Assessment & Plan Assessment & Plan (1) Umbilical hernia: Code(s): K42.9 - Umbilical hernia without obstruction or gangrene Category: Medical Qualifiers: Obstruction and gangrene presence: without obstruction or gangrene Qualified Code(s): K42.9 - Umbilical hernia without obstruction or gangrene Plan Patient returns 1 week following repair of an umbilical hernia with mesh. He tolerated the procedure well and his wounds are healing nicely. He should return in 1 month for follow-up examination. I recommended no lifting greater than 10 lb until that time. Coding Level of Care Code Global (29579) Diagnoses Umbilical hernia without obstruction and without gangrene K42.9 Obstruction and gangrene presence: without obstruction or gangrene
[2024-02-27 09:17] VITALS: PULSE 60; RESP 16; BMI 39.5
== END 2024-02-27 09:19 | disposition home or self-care (01) ==
PROVIDERS: PCP Internal Medicine; Visit Provider Surgery
DX: K42.9 Umbilical hernia without obstruction or gangrene (principal)
CPT/HCPCS: 99212

== ENCOUNTER 2024-03-04 08:01 | Outpatient (AMB) | payer MEDICARE, SELFPAY ==
[2024-03-04 08:08] VITALS: BP 140/80; PULSE 110; TEMP 36.9; O2SAT 99
--- NOTE | 2024-03-04 08:08 | MHC.OFFWIV ---
Intake Vital Signs 03/04/24 08:08 Weight 262 lb BP 140/80 H Blood Pressure Location Lt brachial Position Sitting Pulse 110 H Pulse Source Pulse Oximeter Temp 98.5 F Temp Source Oral Pulse Oximetry (%) 99 Intake Visit Reasons: EP ?UTI Intake Note: Patient here for frequent urination and only urinating a few drops which started about 3 days ago. Patient Tobacco Use Status: Former Tobacco user Allergies Penicillins [PENICILLINS] Allergy (Intermediate, Verified 03/04/24 08:16) rash- STATES BAD RXN CHILD Do you need a note to return to daycare/school/sports/work: No HPI EP ?UTI HPI Details This note is constructed using voice recognition software. While every effort has been made to ensure accuracy, technical sales support manager errors may have been included. The patient is a 73 year old male who presents to the clinic today with concerns for UTI. He notes that for the 3 days having frequency with night. During the daytime he reports a larger volume urine following dosing with his furosemide. He is also compliant with his tamsulosin. He denies fever, chills, back. He has not yet taken his furosemide today, and is unable to provide a sample of urine office today. [facility] Medical History Foot ulcer, right Ambulates with cane Cochlear implant in place Type 2 diabetes mellitus with unspecified complications Essential hypertension Persistent atrial fibrillation Osteoarthritis of left knee Deafness in left ear JUDIE (obstructive sleep apnea) Osteoarthritis Anemia Venous stasis Hard of hearing Obesity GERD (gastroesophageal reflux disease) BPH (benign prostatic hyperplasia) Diabetes Peripheral edema Atrial fibrillation COPD (chronic obstructive pulmonary disease) Chronic a-fib Surgical History History of umbilical hernia repair (02/18/24) Hx of total knee arthroplasty History of amputation of toe Hx of total shoulder replacement Hx of colonoscopy History of bilateral hip replacements Uses cochlear implant Family History Father No problems noted. 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 Review of Systems Const All systems reviewed & are unremarkable except as noted in HPI and below Physical Exam Vital Signs: Last Vital Signs Temp 98.5 F 03/04/24 08:08 Pulse 110 H 03/04/24 08:08 BP 140/80 H 03/04/24 08:08 Pulse Ox 99 03/04/24 08:08 Const General: cooperative, healthy appearing, comfortable, no acute distress and alert Orientation/consciousness: patient oriented x3 Limitations: no limitations Resp Effort & Inspection: normal respiratory effort and able to speak in complete sentences Other: Deferred General: Yes no CVA tenderness Back/Spine/Pelvis Back: no CVA tenderness Skin General skin exam: no rashes or lesions noted, elasticity normal and turgor normal Neuro General: patient oriented x3 Psych Appearance: grossly normal Mental Status: mental status grossly normal Speech and movement: Normal speech and movement present Affect: normal affect Assessment & Plan Assessment & Plan (1) Dysuria: Code(s): R30.0 - Dysuria Plan: Unable to verify UTI due to lack of inability to provide sample, however we will treat based on symptoms at this time. Advised patient to present to the ER should he have lack voiding altogether as this is a concern obstruction. Advised patient to follow up with worsening symptoms or failure to resolve. Plan See above for full details and plan. Medications: New nitrofurantoin monohyd/m-cryst 100 mg must administer with a meal/food 100 mg PO Q12H 5 days 10 caps 0RF Coding Level of Care Code Est Pt Level 3 (45134) Diagnoses Dysuria R30.0
== END 2024-03-04 08:38 | disposition home or self-care (01) ==
PROVIDERS: PCP Internal Medicine; Visit Provider Registered Nurse
DX: R30.0 Dysuria (principal)

== ENCOUNTER 2024-03-05 08:04 | Outpatient (AMB) | payer MEDICARE, SELFPAY ==
--- OUTSIDE RECORDS SUMMARY | 2024-03-05 08:26 | XMS_ITS | Data Portability ---
Author Organization [place] - [facility], Allergy Address [address] [address] Care Team Providers Care Enterprise Account Executive Name Role Phone EMMA THOMAS Primary Care Provider Assessment Encounter Date Assessment Date Assessment LastModified [...] Gastroeso phageal reflux disease without esophagit is 026565628 Active 2014 Gastro-eso phageal reflux disease without esophagiti s; Note: Date Diagnosed: 01/16/2015 10:07 AM (K21.9) Not Available [facility] 4 02:31:43 Sensorine ural hearing loss of bilateral ears 799083682 Active 2013 SNHL Bilaterall y; CMS Risk: low risk Note: Date Diagnosed: 12/10/2013 9:18 AM (389.18) Not Available [facility] 4 02:31:47 Deviated nasal septum 315245269 Active 2014 Septal Deviation; Note: Date Diagnosed: 08/05/2014 11:13 AM (470) ; Start Date : 08/05/2014 Deviated nasal septum; Note: Date Diagnosed: 01/16/2015 9:52 AM (J34.2) Not Available [facility] 4 02:31:48 Bilateral sensory hearing loss 853847679 Active 2013 Hearing loss: Sensory hearing loss, bilateral; Location: left Note: Date Diagnosed: 12/16/2013 11:26 AM (389.11) Not Available [facility] 4 02:31:45 Simple obesity 538910838 Active 2016 Other obesity due to excess calories; Note: Date Diagnosed: 10/09/2016 1:21 PM (E66.09) Not Available [facility] 4 02:31:33 Postopera tive follow-up visit Active 2013 Post op; Note: Date Diagnosed: 12/16/2013 11:26 AM (V67.00) Not Available [facility] 4 02:31:42 Hypertrop hy of nasal turbinate s 72708247 Active 2014 Nasal turbinate hypertroph y; Note: Date Diagnosed: 02/16/2014 12:31 PM (478.0) ; Start Date : 02/16/2014 Hypertrop hy of nasal turbinates ; Note: Date Diagnosed: 01/16/2015 9:52 AM (J34.3) Not Available [facility] 4 02:31:37 Obstructi ve sleep apnea syndrome 03632648 Active 2015 Obstructiv e sleep apnea (adult) (pediatric ); Note: Date Diagnosed: 05/04/2015 4:55 PM (G47.33) Not Available [facility] 4 02:31:48 Allergic rhinitis caused by pollen 44044820 Active 2013 Vasomotor rhinitis; Note: Date Diagnosed: 01/10/2014 2:23 PM (477.0) Not Available [facility] 4 02:31:46 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 Procedures Surgical History None recorded. Imaging Results Imaging Date Name Status [facility]Modified by [facility] Details LastModified Time 04/27/2021 imaging/diag nostic result completed Information not available 10/28/2023 21:36:47 06/01/2021 imaging/diag nostic result completed Information not available 10/28/2023 21:37:06 Procedure Notes None recorded. Medical Equipment None Reported. Allergies Allergen ID Allergen Name Allergen Category Reaction Reaction Severity Criticality Documentation Date Start Date Code Code System Note Provider Name and Address Organization Details Recorded Time 10683 Medicinal product containin g penicilli n and acting as antibacte rial agent (product) medicatio n other Not available Not available 07/22/2023 68999 05 SNOMED React ion: Unkno wn; Not Available [facility] 4 00:23:22 Medications Name Sig Start Date Stop Date Status Note LastModified by Organization Details LastModified Time furosemid e 40 mg tablet active Medicati on ID: [id number] B rand Name: furosemi de Send Method: E-Prescr ibed Sub s Allowed: subs OK Medic ationGen ericName : furosemi de Not Available Not Available Not Available metolazon e 2.5 mg tablet active Not Available Not Available Not Available metformin 500 mg tablet 05/11 completed Medicati on ID: [id number] Br and Name: metformi n Send Method: [...] ous solution 05/11 completed Medicati on ID: [id number] D uration Value: 28 Brand Name: Lantus U-100 Insulin Send Method: E-Prescr ibed Sub s Allowed: subs OK Speci al Instruct ion: INJECT 10 UNITS SUBCUTAN EOUSLY AT BEDTIME DISCAR D VIAL AFTER 28 DAYS Medic ationGen ericName : Lantus U-100 Insulin Not Available Not Available Not Available digoxin 250 mcg (0.25 mg) tablet 05/11 completed Medicati on ID: [id number] Br and Name: digoxin Send Method: E-Prescr ibed Sub s Allowed: subs OK Medic ationGen ericName : digoxin Not Available Not Available Not Available omeprazol e 40 mg capsule,d elayed release active Medicati on ID: [id number] B rand Name: omeprazo le Send Method: E-Prescr ibed Sub s Allowed: subs OK Medic ationGen ericName : omeprazo le Not Available Not Available Not Available tramadol 50 mg tablet 05/11 completed Medicati on ID: [id number] Br and Name: tramadol Send Method: E-Prescr ibed Sub s Allowed: subs OK Medic ationGen ericName : tramadol Not Available Not Available Not Available warfarin 4 mg tablet active Not Available Not Available Not Available Nexium 20 mg capsule,d elayed release 1 capsule by mouth once a day 05/11 completed Medicati on ID: [id number] Br and Name: Nexium S end Method: [...] 0.4 mg capsule active Medicati on ID: [id number] B rand Name: tamsulos in Send Method: E-Prescr ibed Sub s Allowed: subs OK Medic ationGen ericName : tamsulos in Not Available Not Available Not Available glipizide ER 2.5 mg tablet, extended release 24 hr 05/11 completed Medicati on ID: [id number] Br and Name: glipizid e Send Method: E-Prescr ibed Sub s Allowed: subs OK Medic ationGen ericName : glipizid e Not Available Not Available Not Available warfarin 2 mg tablet active Medicati on ID: [id number] B rand Name: warfarin Send Method: E-Prescr ibed Sub s Allowed: subs OK Medic ationGen ericName : warfarin Not Available Not Available Not Available fluticaso ne propionat e 50 mcg/actua tion nasal spray,andres pension 05/11 completed Medicati on ID: [id number] D uration Value: 30 Brand Name: fluticas one propiona te Send Method: E-Prescr ibed Sub s Allowed: subs OK Speci al Instruct ion: USE 1 SPRAY IN EACH NOSTRIL TWICE A DAY Medi cationGe nericNam e: fluticas one propiona te Not Available Not Available Not Available metformin ER 500 mg tablet,ex tended release 24 hr active Medicati on ID: [id number] B rand Name: metformi n Send Method: E-Prescr ibed Sub s Allowed: subs OK Medic ationGen ericName : metformi n Not Available Not Available Not Available ipratropi um bromide 21 mcg (0.03 %) nasal spray Inhale 2 spray into both nostrils three times a day as directed 05/11 completed Medicati on ID: [id number] Br and Name: Jessica Send Method: E-Prescr [...] mcg tablet 05/11 [place] ID: [id number] Br and Name: Centrum Silver Ultra Men's Se nd Method: E-Prescr ibed Sub s Allowed: subs OK Medic ationGen ericName : Centrum Silver Ultra Men's Not Available Not Available Not Available Vitals Date Recorded Body height Body mass index (BMI) Body weight Provider Name and Address Organization Details Last Updated DateTime 08/14/2023 172.72 cm 38 kg/m2 329076.09 g Tevin Koch [place] - [facility] 08/14/2023 10:01:01 Social History None recorded. Functional Status None recorded. Mental Status None recorded. Family History Nothing Reported. Medical History No medical history recorded. Past Encounters Encounter ID Performer Location Encounter Start Date Encounter Closed Date Diagnosis/Indication Diagnosis SNOMED-CT Code Diagnosis ICD10 Code [id number] RAMYA ARNDT MD [facility] [address] [place] [address] 08/14/2023 09:50:50 08/14/2023 10:16:30 Benign neoplasm of parotid gland 33017404 D11.0 Health Concerns Section Related Observation LastModified by Organization Detai ls LastModified Time None Recorded Concern Status LastModified by Organization Details LastModified Time None Recorded Advance Directives Directive None Recorded Payers Encounter Date Sequence Insurance Name Policy Number Policy Casarez Covered Member ID Casarez Member ID Guarantor Name 08/14/2023 2 [place] Leonardo Pang [id number] Leonardo Pang 08/14/2023 1 [place] [employer] Leonardo Pang [id number] 5 Leonardo Pang Notes Date Note Type Note Provider Name and Address Organization Details Recorded Time 08/14/2023 text/html left parotid FNA 05/17/21 - warthin tumorct neck w contrast at [place] 04/27/21left parotid 2.8cm mass. compare with prior [...] cochlear implant with Dr Demetrio ARNDT MD [address] [place] [address], [place], [address], [facility] - [facility] 08/14/2023 10:15:11
[2024-03-05 08:30] LABS: Prothrombin Time Whole Bld POC 22.9 sec (11.1-13.5); ~PT, ~INR - Anti Coag Clinic 1.9 (0.9-1.1)
--- NOTE | 2024-03-05 08:35 | MHC.OFFVISCO ---
Intake Intake Visit Reasons: Anticoagulation Allergies Penicillins [PENICILLINS] Allergy (Intermediate, Verified 03/05/24 08:22) rash- STATES BAD RXN CHILD Medication List - Last Reconciled 03/05/24 by Edith Crowder RN blood sugar diagnostic As directed carvedilol 12.5 mg PO DAILY cholecalciferol (vitamin D3) 50 mcg PO DAILY furosemide 40 mg PO SUTUTHSA@0900 furosemide 80 mg PO .MONWEDFRI@0900 glipizide ER 10 mg PO BID metformin 1,000 mg PO .QAM metformin ER 500 mg PO .@1400 metolazone 2.5 mg PO SA@0900 srcortfnorax-nzzxfdqg-lvzhju 1 tab PO DAILY nitrofurantoin monohyd/m-cryst 100 mg 100 mg PO Q12H 5 days oxycodone-acetaminophen 5-325 mg 1 tab PO 5XD PRN pen needle, diabetic As directed pravastatin 80 mg PO BEDTIME tamsulosin 0.4 mg PO DAILY@1700 warfarin 6 mg See Protocol PO DAILY@1800 warfarin 4 mg See Protocol PO DAILY@1800 Nursing Note Amb to [facility] using cane,feeling not so good sts he has a UTI and is on Nitrofurantoin started yesterday (no warfarin interaction) sts feet are really bothering him and finding it harder to get here- offered and declined W/C transport Medications and supplements reviewed No other changes in health, diet, medications, or supplements, (recent umbilical hernia repair, last visit 02/26 INR 1.5) Denies any signs and symptoms of bleeding, bruising, or clotting. Bleeding, bruising, clotting discussed INR: 1.9 still below therapeutic range Dose: increase dose today to 8mg the resume usual 6mg daily dosing tomorrow no greens (sts has not been eating greens) x 2 more days then can balance, try to increase reds and fluids pt sts throughout visit I hate coming in here, declines a one week return 2 weeks , offered information on Eloquis and pt sts no too expensive, encouraged to check into Eloquis again as there are different programs now available to assist with co-pays Has appt with Dr Bruner next week F/U INR: 2 weeks Patient verbalizes understanding of instructions given Anti-Coag Initial Assessment Social Hx Patient Tobacco Use Status: Former Tobacco user Tobacco use type: Cigarette alcohol intake: never Alcohol intake frequency: does not drink Coding Level of Care Code Est Patient Level 1 Diagnoses Current use of anticoagulant therapy Z79.01 Time Spent (min) 20 Assessment & Plan Assessment & Plan (1) Current use of anticoagulant therapy: Code(s): Z79.01 - 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
== END 2024-03-05 08:50 | disposition home or self-care (01) ==
LOC: HO.ACS 08:04
PROVIDERS: PCP Internal Medicine; Visit Provider Internal Medicine
DX: Z79.01 Long term (current) use of anticoagulants (principal)

== ENCOUNTER 2024-03-07 04:39 | Inpatient (IN) | payer MEDICARE, SELFPAY ==
[2024-03-07] VITALS (11 sets, daily range): BP systolic 113–162; BP diastolic 64–80; PULSE 78–100; RESP 15–18; TEMP 36.4–37.6; O2SAT 92–96; BMI 38.5; BMI 38.7
--- NOTE | ~2024-03-07 | CT_ITS ---
CLINICAL HISTORY: Back pain CT LUMBAR SPINE WITHOUT CONTRAST Comparison: CT/SR - CT ABDOMEN PELVIS WO IV CON - 03/07/24 08:05 EST Findings: Stable minimal retrolistheses L2 on L3 and L3 on L4. Mild dextroscoliosis with apex L3. No acute fracture or dislocation. No significant vertebral body compression deformity. Moderately severe disc space narrowing with endplate osteophytes at L2-3 and L3-4. Moderate degenerative changes in the remaining levels. Moderate to moderately severe multilevel facet degenerative changes. Spinal stenoses suspected L2-3 and L3-4. Multilevel foraminal stenoses suspected. No hydronephrosis or intrarenal calculus. Multiple bilateral renal cysts. No AAA where visualized. Prominent atherosclerotic changes. IMPRESSION: 1. No acute fracture in the lumbar spine. 2. Advanced degenerative changes most prominent at L3-4. This document has been electronically signed by: Jahaira Vargas DO on 03/09/2024 18:01:13
--- NOTE | ~2024-03-07 | CT_ITS ---
CLINICAL HISTORY: fall, on AC CT cervical spine without contrast. Comparison: CT/SR - CAT SCAN CERVICAL SPINE [id number] - 05/17/15 13:43 EST Findings: No acute fracture or traumatic subluxation. Nonspecific straightening to slight reversal of the normal lordosis. Normal frontal alignment. Normal vertebral body height and precervical soft tissue thickness. Severe disc space narrowing C3-4 through C7-T1. Anterior bridging osteophytes. Mild uncinate hypertrophy most pronounced at C5-6 and C6-7. No marked mass effect on the thecal sac. No critical stenosis. Facet joints intact. Variable degrees of foraminal narrowing most pronounced at the bilateral C6 , left C7 and bilateral C8 foramina. Streak artifact from left-sided cochlear implant and postsurgical changes left mastoid temporal bone. Otherwise included skull base structures intact. 2.4 x 3.1 x 3.9 cm mass left parotid gland. Both benign and malignant possibilities considered. ENT consultation and follow-up dedicated contrasted neck CT suggested. No pathologic cervical adenopathy evident. Streak artifact from left shoulder arthroplasty. IMPRESSION: No acute fracture or traumatic subluxation. Generalized degenerative changes. No marked mass effect on the thecal sac. No critical stenosis. Multilevel foraminal narrowing as noted. Indeterminate nearly 4 cm mass left parotid gland for which ENT consultation and follow-up dedicated contrasted neck CT suggested. This document has been electronically signed by: Saul Tucker MD on 03/07/2024 09:47:30
--- NOTE | ~2024-03-07 | CT_ITS ---
CLINICAL HISTORY: back pain, urinary symptoms CT head without contrast Comparison: None Findings: Dense streak artifact from left-sided cochlear implant. Allowing for such, no acute intracranial hemorrhage, edema, mass effect or extra-axial collection evident. Age-appropriate involutional changes with mild chronic small vessel ischemia. No acute appearing alteration in the story-white matter interface. Posterior fossa structures intact. Surgical changes left temporal bone including mastoid process and middle ear canal. Otherwise skull intact. Retention cysts partially imaged left maxillary sinus. Remaining included paranasal sinuses and right mastoids clear. Globes and orbits intact. Impression: No acute intracranial process. This document has been electronically signed by: Saul Tucker MD on 03/07/2024 10:41:11
--- NOTE | ~2024-03-07 | XR_ITS ---
EXAMINATION: XR CHEST CLINICAL INFORMATION: line placement COMPARISON: None available. TECHNIQUE: Frontal view of the chest was obtained. FINDINGS: The lungs are hypoexpanded but clear. The heart size is normal. Pulmonary vascularity is normal. There is new right PICC line with its tip in proximal SVC. No gross bony abnormality seen. The left shoulder prosthesis. Otherwise no bony abnormality seen. XR/XR chest 1V IMPRESSION: Unremarkable chest exam. There is a right PICC line with its tip in proximal to mid SVC. Electronically signed by: Juan Rojas MD 03/15/2024 11:14 AM CHERIE
--- NOTE | ~2024-03-07 | CT_ITS ---
CLINICAL HISTORY: ulcer, rule out osteo, cant get MR CT RIGHT FOOT WITH CONTRAST Comparison: CR/LA - XR FOOT RT MIN 3V - 03/07/24 07:[address]/SR - CT FOOT RT WO IV CON - 09/05/23 19:15 EDT Findings: There are coalescent soft tissue densities in the plantar aspect of the midfoot and proximal forefoot. There is associated cutaneous defect. There are advanced degenerative changes in the midfoot associated with extensive subchondral cystic changes, deformities of multiple tarsal bones and multiple well corticated loose bony fragments. No definite acute erosive changes to suggest acute osteomyelitis. No definite acute fracture. There are prominent calcaneal spurs. No foreign body. Impression: 1. Plantar ulcer involves the midfoot and proximal forefoot. No convincing CT evidence for acute osteomyelitis. 2. Probable Charcot arthropathy in the midfoot. 3. Further evaluation with a tagged white blood cell scan may be helpful. This document has been electronically signed by: Jahaira Vargas DO on 03/09/2024 18:54:11
--- NOTE | ~2024-03-07 | XR_ITS ---
CLINICAL HISTORY: fall 5 views sacrum and coccyx Comparison: None Findings No acute fractures. Bilateral hip arthroplasties. Questionable erosion about the right acetabular component. Conceivably could be an element of particle disease. Correlation with any symptoms referable to the hip in comparison with any prior imaging. Degenerative changes lower lumbar spine. IMPRESSION: No acute fracture. Questionable lucency about the acetabular component of right hip arthroplasty as discussed. This document has been electronically signed by: Saul Tucker MD on 03/07/2024 07:48:28
--- NOTE | ~2024-03-07 | XR_ITS ---
CLINICAL HISTORY: pain, wound 4 view right foot Comparison: 10/13/2023 Findings: No fractures or dislocations. There are severe midfoot degenerative/arthritic changes. Is the patient diabetic? No ankle effusion. No radiopaque foreign body. IMPRESSION: 1. No acute findings. This document has been electronically signed by: Saul Santos MD on 03/07/2024 08:38:22
--- NOTE | ~2024-03-07 | CT_ITS ---
CLINICAL HISTORY: fall, on AC CT abdomen and pelvis without IV contrast. Comparison: CR - XR SACRUM COCCYX MIN 2V - 03/07/24 06:[address]/WA - CT ABDOMEN PELVIS WO CON - 01/10/20 16:43 EST Findings: Mild atelectatic lower lung changes. No consolidation. Mild cardiomegaly. Small pericardial effusion. Liver, gallbladder, pancreas, spleen and left adrenal gland intact for unenhanced exam. Stable small right adrenal adenoma. Perinephric stranding both kidneys greater to the left. No apparent nephrolithiasis or hydronephrosis. Difficult assessment for distal ureteral stones due to extensive streak artifact from bilateral hip arthroplasties. Small calcifications in the pelvis bilaterally, all appearing to be present on prior. Stool and air distention of the colon without transition zone. Stomach and small bowel decompressed. No abnormal stool burden. Normal appendix. Calcified, nonaneurysmal aorta. No pathologic abdominal or pelvic adenopathy. Urinary bladder intact for unenhanced exam allowing for dense streak artifact. Prostate appears enlarged although poorly assessed. Bilateral hip arthroplasties. Lobulated lucency about the right acetabular component suggesting chronic particle disease, stable to prior. Degenerative changes lumbar spine. Soft tissue thickening and soft tissue gas about the umbilicus. Correlation for any recent surgery or intervention. Otherwise infection considered. No well-demarcated fluid collection. Impression: Soft tissue thickening, induration and soft tissue gas at the umbilicus. Correlation for recent surgery. Otherwise infection without drainable abscess suggested. Nonspecific perinephric stranding left kidney greater than right. No apparent stones or hydronephrosis. Correlation for abnormality of urine analysis. Similar jlew-quipfed-ohrp-right renal cysts. No bowel obstruction. Chronic appearing lucency about the right acetabular component suggesting chronic particle disease. This document has been electronically signed by: Saul Tucker MD on 03/07/2024 09:24:05
[2024-03-07 05:19] LABS: Basophils Percent Auto 0.3 % (0-2); Eosinophils Absolute Auto 0.1 X10*3/uL (0.0-0.4); Eosinophils Percent Auto 0.5 % (0-4); Hematocrit 36.6 % (42.0-52.0); Hemoglobin 12.5 g/dl (14.0-18.0); Imm Gran Abs Auto 0.11 X10*3/uL (0.00-0.03); Imm Gran Pct Auto 0.8 % (0.0-0.4); Lymphocytes Absolute Auto 1.2 X10*3/uL (1.2-4.9); Lymphocytes Percent Auto 8.8 % (20-40); MANUAL DIFF FLAG NO; Mean Corpuscular HGB Conc 34.2 g/dl (31.0-36.0); Mean Corpuscular Hemoglobin 31.8 pg (27.0-33.0); Mean Corpuscular Volume 93.1 fL (80.0-98.0); Mean Platelet Volume 10.1 fL (9.4-12.4); Monocytes Absolute Auto 2.1 X10*3/uL (0.1-1.2); Neutrophils Absolute Auto 9.7 x10*3/uL (2.0-8.3); Neutrophils Percent Auto 73.6 % (45-73); Platelet Count 234 X10*3/uL (160-400); Red Blood Count 3.93 X10*6/uL (4.60-5.80); Red Cell Distribution Width 13.2 % (11.0-16.0); SCAN SMEAR FLAG 1; White Blood Count 13.1 X10*3/uL (4.8-10.8)
[2024-03-07 05:33] LABS: Alanine Aminotransferase 15 U/L (0-40); Albumin Level 3.7 g/dL (3.5-5.0); Alkaline Phosphatase 66 U/L (39-117); Anion Gap 16 (12-20); Aspartate Amino Transferase 31 U/L (5-37); Bilirubin Total 1.1 mg/dL (0.0-1.0); Blood Urea Nitrogen 21 mg/dL (9-16); Calcium 9.7 mg/dL (8.4-10.2); Carbon Dioxide 31 mmol/L (22-29); Chloride 97 mmol/L (96-108); Estimated Glomerular Filt Rate > 60; Glucose Random 205 mg/dL (60-115); Potassium 3.6 mmol/L (3.3-5.1); Sodium 140 mmol/L (135-145); Total Protein 7.4 g/dL (6.5-8.0)
[2024-03-07 05:50] LABS: Appearance Urine Clear; Color Urine Yellow; Glucose Urine UA Negative (Negative); Leukocyte Esterase Urine Small (1+) (Negative); Nitrite Urine Negative (Negative); PH 6.5 (5.0-9.0); Specific Gravity - Urine 1.015 (1.005-1.025); UMIC TRIGGER UACC YES; Urine Blood Trace (Negative); Urine Ketones 15 mg/dL (Negative); Urine Protein 30 (1+) mg/dL (Neg-Trace)
[2024-03-07 05:55] LABS: Bacteria Urine None Seen (None Seen); Hyaline Casts Urine 0-2 /LPF (0-2); RBC Urine 0-2 /HPF (0-2); Squamous Epithelial Cell Urine 0-2 /HPF (0-2); UACC Culture Trigger YES
--- OUTSIDE RECORDS SUMMARY | 2024-03-07 05:59 | XMS_ITS | Data Portability ---
Author Organization [place] - [facility], Allergy Address [address] [address] Care Team Providers Care Graphic Designer Name Role Phone EMMA THOMAS Primary Care [...] Gastroeso phageal reflux disease without esophagit is 465650439 Active 2014 Gastro-eso phageal reflux disease without esophagiti s; Note: Date Diagnosed: 01/16/2015 10:07 AM (K21.9) Not Available [facility] 4 02:31:43 Sensorine ural hearing loss of bilateral ears 572162861 Active 2013 SNHL Bilaterall y; CMS Risk: low risk Note: Date Diagnosed: 12/10/2013 9:18 AM (389.18) Not Available [facility] 4 02:31:47 Deviated nasal septum 958009237 Active 2014 Septal Deviation; Note: Date Diagnosed: 08/05/2014 11:13 AM (470) ; Start Date : 08/05/2014 Deviated nasal septum; Note: Date Diagnosed: 01/16/2015 9:52 AM (J34.2) Not Available [facility] 4 02:31:48 Bilateral sensory hearing loss 800688121 Active 2013 Hearing loss: Sensory hearing loss, bilateral; Location: left Note: Date Diagnosed: 12/16/2013 11:26 AM (389.11) Not Available [facility] 4 02:31:45 Simple obesity 000608663 Active 2016 Other obesity due to excess calories; Note: Date Diagnosed: 10/09/2016 1:21 PM (E66.09) Not Available [facility] 4 02:31:33 Postopera tive follow-up visit Active 2013 Post op; Note: Date Diagnosed: 12/16/2013 11:26 AM (V67.00) Not Available [facility] 4 02:31:42 Hypertrop hy of nasal turbinate s 58045910 Active 2014 Nasal turbinate hypertroph y; Note: Date Diagnosed: 02/16/2014 12:31 PM (478.0) ; Start Date : 02/16/2014 Hypertrop hy of nasal turbinates ; Note: Date Diagnosed: 01/16/2015 9:52 AM (J34.3) Not Available [facility] 4 02:31:37 Obstructi ve sleep apnea syndrome 74524709 Active 2015 Obstructiv e sleep apnea (adult) (pediatric ); Note: Date Diagnosed: 05/04/2015 4:55 PM (G47.33) Not Available [facility] 4 02:31:48 Allergic rhinitis caused by pollen 49139921 Active 2013 Vasomotor rhinitis; Note: Date Diagnosed: 01/10/2014 2:23 PM (477.0) Not Available [facility] 4 02:31:46 Neoplasm of uncertain behavior of parotid gland 57804122 Active 2021 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 Procedures Surgical History None recorded. Imaging Results Imaging Date Name Status LastModified [facility] Details LastModified Time 04/27/2021 imaging/diag nostic result completed Information not available 10/28/2023 21:36:47 06/01/2021 imaging/diag nostic result completed Information not available 10/28/2023 21:37:06 Procedure Notes None recorded. Medical Equipment None Reported. Allergies Allergen ID Allergen Name Allergen Category Reaction Reaction Severity Criticality Documentation Date Start Date Code Code System Note Provider Name and Address Organization Details Recorded Time 95717 Medicinal product containin g penicilli n and acting as antibacte rial agent (product) medicatio n other Not available Not available 07/22/2023 06039 05 SNOMED React ion: Unkno wn; Not Available [facility] 4 00:23:22 Medications Name Sig Start Date Stop Date Status Note LastModified by Organization Details LastModified Time furosemid e 40 mg tablet active Medicati on ID: [id number] B rand Name: furosemi de Send Method: E-Prescr ibed Sub s Allowed: subs OK Medic ationGen ericName : furosemi de Not Available Not Available Not Available metolazon e 2.5 mg tablet active Not Available Not Available Not Available metformin 500 mg tablet 05/11 completed Medicati on ID: [id number] Br and Name: metformi n Send Method: [...] ous solution 05/11 completed Medicati on ID: [id number] D uration Value: 28 Brand Name: Lantus U-100 Insulin Send Method: E-Prescr ibed Sub s Allowed: subs OK Speci al Instruct ion: INJECT 10 UNITS SUBCUTAN EOUSLY AT BEDTIME DISCAR D VIAL AFTER 28 DAYS Medic ationGen ericName : Lantus U-100 Insulin Not Available Not Available Not Available digoxin 250 mcg (0.25 mg) tablet 05/11 completed Medicati on ID: [id number] Br and Name: digoxin Send Method: E-Prescr ibed Sub s Allowed: subs OK Medic ationGen ericName : digoxin Not Available Not Available Not Available omeprazol e 40 mg capsule,d elayed release active Medicati on ID: [id number] B rand Name: omeprazo le Send Method: E-Prescr ibed Sub s Allowed: subs OK Medic ationGen ericName : omeprazo le Not Available Not Available Not Available tramadol 50 mg tablet 05/11 completed Medicati on ID: [id number] Br and Name: tramadol Send Method: E-Prescr ibed Sub s Allowed: subs OK Medic ationGen ericName : tramadol Not Available Not Available Not Available warfarin 4 mg tablet active Not Available Not Available Not Available Nexium 20 mg capsule,d elayed release 1 capsule by mouth once a day 05/11 completed Medicati on ID: [id number] Br and Name: Nexium S end Method: [...] 0.4 mg capsule active Medicati on ID: [id number] B rand Name: tamsulos in Send Method: E-Prescr ibed Sub s Allowed: subs OK Medic ationGen ericName : tamsulos in Not Available Not Available Not Available glipizide ER 2.5 mg tablet, extended release 24 hr 05/11 completed Medicati on ID: [id number] Br and Name: glipizid e Send Method: E-Prescr ibed Sub s Allowed: subs OK Medic ationGen ericName : glipizid e Not Available Not Available Not Available warfarin 2 mg tablet active Medicati on ID: [id number] B rand Name: warfarin Send Method: E-Prescr ibed Sub s Allowed: subs OK Medic ationGen ericName : warfarin Not Available Not Available Not Available fluticaso ne propionat e 50 mcg/actua tion nasal spray,andres pension 05/11 completed Medicati on ID: [id number] D uration Value: 30 Brand Name: fluticas one propiona te Send Method: E-Prescr ibed Sub s Allowed: subs OK Speci al Instruct ion: USE 1 SPRAY IN EACH NOSTRIL TWICE A DAY Medi cationGe nericNam e: fluticas one propiona te Not Available Not Available Not Available metformin ER 500 mg tablet,ex tended release 24 hr active Medicati on ID: [id number] B rand Name: metformi n Send Method: E-Prescr ibed Sub s Allowed: subs OK Medic ationGen ericName : metformi n Not Available Not Available Not Available ipratropi um bromide 21 mcg (0.03 %) nasal spray Inhale 2 spray into both nostrils three times a day as directed 05/11 completed Medicati on ID: [id number] Br and Name: Jessica Send Method: E-Prescr [...] mcg tablet 05/11 completed Medicati on ID: [id number] Br and Name: Centrum Silver Ultra Men's Se nd Method: E-Prescr ibed Sub s Allowed: subs OK Medic ationGen ericName : Centrum Silver Ultra Men's Not Available Not Available Not Available Vitals Date Recorded Body height Body mass index (BMI) Body weight Provider Name and Address Organization Details Last Updated DateTime 08/14/2023 172.72 cm 38 kg/m2 117288.09 g Tevin Koch [place] - [facility] 08/14/2023 10:01:01 Social History None recorded. Functional Status None recorded. Mental Status None recorded. Family History Nothing Reported. Medical History No medical history recorded. Past Encounters Encounter ID Performer Location Encounter Start Date Encounter Closed Date Diagnosis/Indication Diagnosis SNOMED-CT Code Diagnosis ICD10 Code [id number] RAMYA ARNDT MD [facility] [address] [place] [address] 08/14/2023 09:50:50 08/14/2023 10:16:30 Benign neoplasm of parotid gland 00773368 D11.0 Health Concerns Section Related Observation LastModified by Organization Detai ls LastModified Time None Recorded Concern Status LastModified by Organization Details LastModified Time None Recorded Advance Directives Directive None Recorded Payers Encounter Date Sequence Insurance Name Policy Number Policy Casarez Covered Member ID Casarez Member ID Guarantor Name 08/14/2023 2 [place] Leonardo Pang [id number] Leonardo Pang 08/14/2023 1 [place] [employer] Leonardo Pang [id number] Leonardo Pang Notes Date Note Type Note Provider Name and Address Organization Details Recorded Time 08/14/2023 text/html left parotid FNA 05/17/21 - warthin tumorct neck w contrast at [place] 04/27/21left parotid 2.8cm mass. compare with prior [...] cochlear implant with Dr Demetrio ARNDT MD [address] [place] [address], [place], [address], [facility] - [facility] 08/14/2023 10:15:11
--- NOTE | 2024-03-07 06:31 | ED.GENADULT ---
HPI - General Adult General Chief complaint: General Medical Stated complaint: LOWER BACK PAIN Time Seen by Provider: 03/07/24 06:29 Source: patient and RN notes reviewed Mode of arrival: ambulatory Limitations: no limitations History of Present Illness ED Provider: Gaby Upton PA-C HPI narrative: This is a 26-nysg-ntb-male, with a hx of PVCs, JUDIE, heart failure, diabetes, hypertension, obesity, atrial fibrillation on Coumadin, who presents to the ED with complaints of low back pain x 3 days. Patient reports that about a week and a half ago he slipped on a stalk and slowly lowered himself to the ground, and fell onto his buttocks. He did not have pain at that time. He denies hitting his head or LOC. He states that 3 days ago he felt as though he slept wrong, and has had low back pain. He was seen on March 04 due to frequent urination, and only urinating a few drops which started 3 days prior to visit. He was started on Macrobid but was unable to provide a urine sample at that time. He has been taking this antibiotic as prescribed, last dose was this morning. He also states that he has been followed by wound care for a chronic right foot ulcer. He was started on doxycycline several days ago which he has been taking as prescribed. He denies any recent fevers, chills, abdominal pain. He did have a umbilical hernia surgery 2 days ago. He denies any chest pain or shortness for breath. Pain in his back worsens with movement. He has been taking oxycodone for his pain however states that his pain has only progressed. He denies any urinary retention or incontinence. No saddle anesthesia. MD complaint: Back pain Onset (ago): day(s) Location: back Quality: aching Pain Consistency: constant Relieving factors: none Exacerbating factors: movement Associated symptoms: denies other symptoms Treatments prior to arrival: none Related Data Home Medications ?Medication ?Instructions ?Recorded ?Confirmed pravastatin 80 mg tablet 80 mg PO BEDTIME 12/31/19 03/07/24 tamsulosin 0.4 mg capsule 0.4 mg PO DAILY@1700 12/31/19 03/07/24 cholecalciferol (vitamin D3) 25 50 mcg PO DAILY@1600 05/08/20 03/07/24 mcg (1,000 unit) capsule xlboalvronbc-zqymreeq-ptyfek tablet 1 tab PO DAILY 05/08/20 03/07/24 oxycodone-acetaminophen 5 mg-325 1 tab PO 5XD PRN Pain 05/08/20 03/07/24 mg tablet blood sugar diagnostic #10 ea 06/12/20 03/05/24 pen needle, diabetic 31 gauge x #50 ea 06/12/20 03/05/24/ carvedilol 12.5 mg tablet 12.5 mg PO DAILY 09/06/23 03/07/24 furosemide 40 mg tablet 40 mg PO SUTUTHSA@0900 09/06/23 03/07/24 glipizide 5 mg tablet, extended 10 mg PO BID 09/06/23 03/07/24 release 24 hr metformin 500 mg tablet,extended 500 mg PO DAILY@1400 09/06/23 03/07/24 release 24 hr metolazone 2.5 mg tablet 2.5 mg PO SA@0900 09/06/23 03/07/24 warfarin 2 mg tablet 6 mg PO DAILY@1800 10/07/23 03/07/24 furosemide 80 mg tablet 80 mg PO MOWEFR@0900 02/04/24 03/07/24 doxycycline hyclate 100 mg capsule 100 mg PO BID 03/07/24 03/07/24 ferrous sulfate 325 mg (65 mg 325 mg PO DAILY 03/07/24 03/07/24 iron) tablet (iron) metformin 500 mg tablet,extended 1,000 mg PO DAILY 03/07/24 03/07/24 release 24 hr nitrofurantoin 1 cap PO Q12H 03/07/24 03/07/24 monohydrate/macrocrystals 100 mg capsule Allergies Allergy/AdvReac Type Severity Reaction Status Date / Time Penicillins [PENICILLINS] Allergy Intermediate rash- Verified 03/07/24 05:00 STATES BAD RXN CHILD Review of Systems Review of Systems: Yes all other systems are reviewed and are negative Constitutional: Constitutional: Reports as per [facility] Past Medical History Medical History (Updated 03/09/24 @ 12:20 by Diana Mendoza MD) MSSA bacteremia Foot ulcer, right Ambulates with cane Cochlear implant in place Type 2 diabetes mellitus with unspecified complications Essential hypertension Persistent atrial fibrillation Osteoarthritis of left knee Deafness in left ear JUDIE (obstructive sleep apnea) Osteoarthritis Anemia Venous stasis Hard of hearing Obesity GERD (gastroesophageal reflux disease) BPH (benign prostatic hyperplasia) Diabetes Peripheral edema Atrial fibrillation COPD (chronic obstructive pulmonary disease) Chronic a-fib Surgical History History of umbilical hernia repair (02/18/24) Hx of total knee arthroplasty History of amputation of toe Hx of total shoulder replacement Hx of colonoscopy History of bilateral hip replacements Uses cochlear implant Family History Family History Father No problems noted. Mother Stroke Social History Social History Household Members: Spouse Housing: House Are you a primary home care assistant to a significant other at home: No Do you presently have visiting nurse or other home services: No Alcohol intake: former Patient Tobacco Use Status: Former Tobacco user Tobacco use type: Cigarette Second Hand Smoke Exposure: No Advance Directives Date on File: 12/31/19 service: No 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al status: retired 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 Physical Exam ED Vital Signs: Vital Signs - 24 hr 03/07/24 04:48 03/07/24 04:50 03/07/24 06:40 Temperature 98.4 F 98.4 F 98.5 F Pulse Rate 92 93 89 Respiratory Rate 18 16 18 Blood Pressure 150/69 H 150/69 H 128/69 Pulse Oximetry 96 94 94 Oxygen Delivery Method Room Air Room Air Room Air 03/07/24 07:17 03/07/24 08:46 03/07/24 10:16 Temperature 98.5 F 98.4 F Pulse Rate 100 90 82 Respiratory Rate 18 15 17 Blood Pressure 129/74 113/65 121/77 Pulse Oximetry 95 92 Oxygen Delivery Method Room Air Room Air 03/07/24 12:40 Temperature 98.3 F Pulse Rate 96 Respiratory Rate 18 Blood Pressure 123/64 Pulse Oximetry 96 Oxygen Delivery Method Room Air BMI result Body Mass Index 38.5 Const General: cooperative, comfortable and no acute distress Orientation/consciousness: patient oriented x3 Limitations: no limitations HENMT Head: Yes normal to inspection, Yes normocephalic and Yes atraumatic Ears: hearing grossly normal bilaterally General nose exam: Normal external nose present Face and sinus: Yes normal facial exam Mouth: Normal oral and palatal mucosa present, oropharynx normal and moist mucous membranes Throat: Yes posterior oropharynx normal Eyes General: appearance normal, both eyes and all related structures Eyelids: Yes eyelids normal Conjunctivae: conjunctivae normal Sclerae: sclerae normal Pupils: Equal, round and reactive pupils present EOM: EOMs intact bilaterally Neck Neck: Yes normal visual inspection, Yes full ROM and Yes no lymphadenopathy Lymphatic: no lymphadenopathy noted Chest Chest palpation & inspection: normal inspection of the chest Resp Effort & Inspection: normal respiratory effort and able to speak in complete sentences Auscultation: clear to auscultation bilaterally, no crackles, no rales, no rhonchi and no wheezes Cardio Rate: regular rate Rhythm: regular rhythm Heart sounds: S1 normal heart sound present and S2 normal heart sound present GI Other: Abdomen is soft, nontender, nondistended, he does have healing umbilical incision noted. No abdominal fluctuance or induration. Inspection: Yes normal to inspection Back/Spine/Pelvis Other: Patient tenderness to palpation along the left paraspinous muscles as well as left-sided CVA tenderness. Back pain with spasms noted with positional changes. No pain at rest Thoracic/Lumbar Spine: thoracic and lumbar spine normal to inspection Skin Other: Right foot, with chronic ulceration noted to midfoot. No surrounding erythema or warmth. No drainage. >>see extremity physical exam for more details. Neuro General: patient oriented x3 and moves all extremities Cranial nerves: Yes Equal, round and reactive pupils present Extrem Other: Right leg, with faint erythema and warmth noted along the tib-fib with 1+ pitting edema noted. No calf tenderness. Patient has chronic wound noted to the right heel. No surrounding erythema or warmth. Nontender. Strong DP pulse. General: Yes normal to inspection Right upper extremity: normal to inspection Left upper extremity: normal to inspection Right lower extremity: normal to inspection Left lower extremity: normal to inspection Course Reevaluation(s) Reevaluation #1: Patient has mild leukocytosis at 13.1, normocytic anemia noted with a H&H of 12.5/36.6. Will obtain lactic and cultures. Vital signs stable. Chemistry revealing no evidence of BRIAN. Total bili slightly elevated at 1.1, hyperglycemic at 205, he does have a history of diabetes. Urine with trace blood, small leuk esterases, and wbc's. Abdominal CT revealing soft tissue thickening induration and soft tissue gas at the umbilicus - he did have umbilical hernia repair 2 weeks ago - he also has nonspecific perinephric stranding on the left kidney, greater than right, no apparent stones or hydronephrosis, he does have similar left greater than right renal cysts, no bowel obstruction. There is some chronic appearing lucency at the right acetabular component suggesting chronic particle disease. 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 He also has generalized degenerative changes, no mass effect on the thecal sac. Foot x-ray revealing no acute findings, there is severe midfoot degenerative/arthritic changes. CT scan of the abdomen was read on the CT of the head, consulted with the radiology department, they will ensure that the head CT is also read. Time: 10:23 Reevaluation #2: Head CT was read, no acute findings seen. Patient re-evaluated, he is unable to roll in the bed secondary to pain. Given that urine appears to be infected, he does have left perinephric stranding, patient should be admitted for pyelonephritis. Discussed case with Dr. Arellano, transfer of care initiated. EKG ordered to rule out QTC prolongation as patient has allergy to penicillin. Discussed with Dr. Gorman who reports pt with good toleration of cephalosporins in the past. Will defer abx to hospitalist team. Transfer of care initiated. Medications Administered Generic Name Dose Route Start Last Admin Trade Name Freq PRN Reason Stop Dose Admin Acetaminophen 650 mg 03/07/24 15:04 03/10/24 08:21 Acetaminophen 325 Mg Tablet PO 650 mg Q6H PRN Administration Pain, Mild 1-3,fever,headache Carvedilol 12.5 mg 03/08/24 09:00 03/10/24 08:12 Carvedilol 12.5 Mg Tablet PO 12.5 mg DAILY BESSIE Administration Protocol Ferrous Sulfate 324 mg 03/08/24 09:00 03/10/24 08:13 Ferrous Sulfate 324 Mg Tablet. PO 324 mg DAILY BESSIE Administration Furosemide 40 mg 03/09/24 09:00 03/09/24 07:46 Furosemide 40 Mg Tablet PO 40 mg SUTUTHSA@0900 BESSIE Administration Protocol Furosemide 80 mg 03/08/24 09:00 03/10/24 08:13 Furosemide 40 Mg Tablet PO 80 mg MOWEFR@0900 BESSIE Administration Protocol Dextrose 250 mls @ 750 mls/hr 03/07/24 15:08 03/09/24 07:04 D10 IV Infused Q15M PRN Infusion per Hypoglycemia Standing Ord. Protocol Cefazolin Sodium/Dextrose 2 gm in 50 mls @ 100 mls/hr 03/09/24 12:30 03/10/24 04:58 Ancef IV Infused Q8H BESSIE Infusion Insulin Human Lispro 0 unit 03/07/24 16:30 03/10/24 08:12 Insulin Lispro 100 Unit/Ml 3 Ml Vial SUBCUT 2 unit QIDACHS BESSIE Administration Protocol Magnesium Hydroxide 30 ml 03/07/24 15:04 03/10/24 05:47 Milk Of Magnesia 30 Ml Oral.Susp PO 30 ml DAILY PRN Administration Constipation Morphine Sulfate 4 mg 03/07/24 15:04 03/10/24 11:18 Morphine Sulfate 4 Mg/Ml Cartridge IVPUSH 4 mg Q4H PRN Administration Pain, Severe (Pain Scale 7-10) Protocol Multivitamins/Vitamin C 1 tab 03/08/24 09:00 03/10/24 08:13 Multivitamin Tablet PO 1 tab DAILY BESSIE Administration Oxycodone HCl 10 mg 03/07/24 15:04 03/10/24 08:20 Oxycodone Hcl Immed Release 5 Mg Tablet PO 10 mg Q4H PRN Administration Pain, Moderate(Pain Scale 4-6) Pravastatin Sodium 80 mg 03/07/24 21:00 03/09/24 20:40 Pravastatin Sodium 80 Mg Tablet PO 80 mg BEDTIME BESSIE Administration Sodium Chloride 3 ml 03/07/24 16:00 03/10/24 08:27 0.9 % Sodium Chloride Flush 3 Ml Syringe IVFLUSH Not Given QSHIFT [facility] Tamsulosin HCl 0.4 mg 03/08/24 17:00 03/09/24 16:58 Tamsulosin Hcl 0.4 Mg Capsule PO 0.4 mg DAILY@1700 [facility] Administration Vitamin D 50 mcg 03/08/24 16:00 03/09/24 16:58 Cholecalciferol (Vitamin D3) 25 Mcg Tablet PO 50 mcg DAILY@1600 [facility] Administration Discontinued Medications Generic Name Dose Route Start Last Admin Trade Name Freq PRN Reason Stop Dose Admin Ceftriaxone Sodium 1 gm 03/07/24 14:00 03/08/24 14:28 Ceftriaxone Sodium 1 Gm Vial IVPUSH 1 gm Q24H BESSIE Administration Doxycycline Monohydrate 100 mg 03/07/24 21:00 03/09/24 07:46 Doxycycline Monohydrate 100 Mg Capsule PO 100 mg BID BESSIE Administration Glipizide 10 mg 03/07/24 21:00 03/08/24 20:20 Glipizide Xl 10 Mg Tab.Er.24 PO 10 mg BID BESSIE Administration Hydromorphone HCl 0.5 mg 03/07/24 07:35 03/07/24 07:48 Hydromorphone Hcl 0.5 Mg/0.5 Ml Syringe IVPUSH 03/07/24 07:36 0.5 mg ONCE ONE Administration Protocol Vancomycin HCl 2,000 mg in 500 mls @ 250 mls/hr 03/08/24 13:00 03/08/24 17:05 Vancomycin/Ns IV 03/08/24 14:59 Infused ONCE ONE Infusion Vancomycin HCl 750 mg/ Sodium 265 mls @ 265 mls/hr 03/08/24 23:00 03/09/24 08:01 Chloride IV Infused Q8H BESSIE Infusion Iohexol 85 ml 03/09/24 17:31 03/09/24 17:31 Iohexol 350 Mg/Ml 100 Ml Infus..Btl IV 03/09/24 17:32 85 ml ONCE ONE Administration Metformin HCl 500 mg 03/08/24 14:00 03/08/24 14:28 Metformin Hcl Er 500 Mg Tab.Er.24h PO 500 mg DAILY@1400 BESSIE Administration Metformin HCl 1,000 mg 03/08/24 09:00 03/08/24 08:25 Metformin Hcl Er 500 Mg Tab.Er.24h PO 1,000 mg DAILY BESSIE Administration Morphine Sulfate 4 mg 03/07/24 06:43 03/07/24 06:50 Morphine Sulfate 4 Mg/Ml Cartridge IVPUSH 03/07/24 06:44 4 mg ONCE ONE Administration Protocol Nitrofurantoin Macrocrystals 100 mg 03/07/24 21:00 03/09/24 07:46 Nitrofurantoin Monohyd/M-Cryst 100 Mg Capsule PO 100 mg BID BESSIE Administration Polyethylene Glycol 17 gm 03/09/24 08:08 03/09/24 08:49 Polyethylene Glycol 3350 17 Gm Powd.Pack PO 03/09/24 08:09 17 gm ONCE ONE Administration Warfarin Sodium 6 mg 03/07/24 19:45 03/07/24 20:41 Warfarin Sodium 6 Mg Tablet PO 03/07/24 19:46 6 mg ONCE ONE Administration Medical Decision Making Medical Decision Making [facility] Narrative: This is a 74-year-old male, hx of PVCs, JUDIE, heart failure, diabetes, hypertension, obesity, atrial fibrillation on Coumadin, who presents to the ER with complaints of back pain x 3 days. Patient reports that about 1 week ago, he slid off his recliner and landed onto his buttocks. He did not have any pain at that time however states that 3 days ago he ?slept wrong?, and awoke with worsening back pain. Back pain is constant, worsens with movement. He states that 2 days ago he was diagnosed with a urinary tract infection due to urinary urgency and frequency. He denies any fevers, chills, chest pain, shortness for breath, dysuria, saddle anesthesia, urinary or bowel retention or incontinence. Unable to get a good exam of back as he is unable to move off the stretcher, given urinary symptoms, will obtain CT abdomen and pelvis to rule out obstructive uropathy. Patient is also on anticoagulation, with fall, denies head strike or LOC, will obtain CT head and neck to rule out ICH, SDH, cervical spine fracture. Plan: Labs, x-ray, urine, morphine 4 mg IV Differential Diagnosis Differential Diagnoses: The differential diagnosis associated with the presentation includes Lab Data [facility] Lab Attestation statement: I reviewed the patient's lab results. No leukocytosis, normocytic anemia with an H&H of 12.5/36.6, chemistry with no evidence of BRIAN, creatinine 1.08 - similar to previous. Total bili 1.1, signs within normal limits. Urine with trace protein, trace blood, small leuks, wbc's -he is currently being treated for urinary tract infection. 03/10/24 05:38 03/10/24 05:38 Labs: Lab Results 03/07/24 03/07/24 03/07/24 Range/Units 05:14 05:44 10:43 WBC 13.1 H (4.8-10.8) X10*3/uL RBC 3.93 L (4.60-5.80) X10*6/uL Hgb 12.5 L (14.0-18.0) g/dl Hct 36.6 L (42.0-52.0) % MCV 93.1 (80.0-98.0) fL MCH 31.8 (27.0-33.0) pg MCHC 34.2 (31.0-36.0) g/dl RDW 13.2 (11.0-16.0) % Plt Count 234 (160-400) X10*3/uL MPV 10.1 (9.4-12.4) fL Immature Gran % (Auto) 0.8 H (0.0-0.4) % Neut % (Auto) 73.6 H (45-73) % Lymph % (Auto) 8.8 L (20-40) % [place] % (Auto) 16.0 H (2-11) % Eos % (Auto) 0.5 (0-4) % Baso % (Auto) 0.3 (0-2) % Lymph # (Auto) 1.2 (1.2-4.9) X10*3/uL [place] # (Auto) 2.1 H (0.1-1.2) X10*3/uL Eos # (Auto) 0.1 (0.0-0.4) X10*3/uL Baso # (Auto) 0.0 (0.0-0.2) X10*3/uL Abs Immat Gran (auto) 0.11 H (0.00-0.03) X10*3/uL Absolute Neuts (auto) 9.7 H (2.0-8.3) x10*3/uL Absolute Nucleated RBC 0.000 (0.0-0.012) X10*3/uL Nucleated RBC % (auto) 0.0 (0.0-0.2) /100WBC PT 33.0 H D (10.9-12.4) SEC INR 2.8 H (0.9-1.1) APTT 36.4 (26.0-36.8) SEC Sodium 140 (135-145) mmol/L Potassium 3.6 (3.3-5.1) mmol/L Chloride 97 (96-108) mmol/L Carbon Dioxide 31 H (22-29) mmol/L Anion Gap 16 (12-20) BUN 21 H (9-16) mg/dL Creatinine 1.08 (0.5-1.4) mg/dL Estim Creat Clear Calc 76.0 Estimated GFR > 60 POC Glucose (60-115) mg/dL Random Glucose 205 H (60-115) mg/dL Lactic Acid 1.1 (0.5-2.0) mmol/L Calcium 9.7 (8.4-10.2) mg/dL Total Bilirubin 1.1 H (0.0-1.0) mg/dL AST 31 (5-37) U/L ALT 15 (0-40) U/L Alkaline Phosphatase 66 (39-117) U/L Total Protein 7.4 (6.5-8.0) g/dL Albumin 3.7 (3.5-5.0) g/dL Urine Color Yellow Urine Appearance Clear Urine pH 6.5 (5.0-9.0) Ur Specific [place] 1.015 (1.005-1.025) Urine Protein 30 (1+) H (Neg-Trace) mg/dL Urine Glucose (UA) Negative (Negative) mg/dL Urine Ketones 15 (Negative) mg/dL Urine Blood Trace H (Negative) Urine Nitrite Negative (Negative) Ur Leukocyte Esterase Small (1+) H (Negative) Urine RBC 0-2 (0-2) /HPF Urine WBC 11-20 H (0-5) /HPF Ur Squamous Epith Cells 0-2 (0-2) /HPF Urine Bacteria None Seen (None Seen) Hyaline Casts 0-2 (0-2) /LPF 03/07/ Range/Units 11:36 WBC (4.8-10.8) X10*3/uL RBC (4.60-5.80) X10*6/uL Hgb (14.0-18.0) g/dl Hct (42.0-52.0) % MCV (80.0-98.0) fL MCH (27.0-33.0) pg MCHC (31.0-36.0) g/dl RDW (11.0-16.0) % Plt Count (160-400) X10*3/uL MPV (9.4-12.4) fL Immature Gran % (Auto) (0.0-0.4) % Neut % (Auto) (45-73) % Lymph % (Auto) (20-40) % Stephen[place] % (Auto) (2-11) % Eos % (Auto) (0-4) % Baso % (Auto) (0-2) % Lymph # (Auto) (1.2-4.9) X10*3/uL [place] # (Auto) (0.1-1.2) X10*3/uL Eos # (Auto) (0.0-0.4) X10*3/uL Baso # (Auto) (0.0-0.2) X10*3/uL Abs Immat Gran (auto) (0.00-0.03) X10*3/uL Absolute Neuts (auto) (2.0-8.3) x10*3/uL Absolute Nucleated RBC (0.0-0.012) X10*3/uL Nucleated RBC % (auto) (0.0-0.2) /100WBC PT (10.9-12.4) SEC INR (0.9-1.1) APTT (26.0-36.8) SEC Sodium (135-145) mmol/L Potassium (3.3-5.1) mmol/L Chloride (96-108) mmol/L Carbon Dioxide (22-29) mmol/L Anion Gap (12-20) BUN (9-16) mg/dL Creatinine (0.5-1.4) mg/dL Estim Creat Clear Calc Estimated GFR POC Glucose 205 H (60-115) mg/dL Random Glucose (60-115) mg/dL Lactic Acid (0.5-2.0) mmol/L Calcium (8.4-10.2) mg/dL Total Bilirubin (0.0-1.0) mg/dL AST (5-37) U/L ALT (0-40) U/L Alkaline Phosphatase (39-117) U/L Total Protein (6.5-8.0) g/dL Albumin (3.5-5.0) g/dL Urine Color Urine Appearance Urine pH (5.0-9.0) Ur Specific [place] (1.005-1.025) Urine Protein (Neg-Trace) mg/dL Urine Glucose (UA) (Negative) mg/dL Urine Ketones (Negative) mg/dL Urine Blood (Negative) Urine Nitrite (Negative) Ur Leukocyte Esterase (Negative) Urine RBC (0-2) /HPF Urine WBC (0-5) /HPF Ur Squamous Epith Cells (0-2) /HPF Urine Bacteria (None Seen) Hyaline Casts (0-2) /LPF Radiology Impression Discussion of test interpretation with radiology: I have reviewed the radiologist's reading. Discharge Plan Discharge Clinical Impression: Acute pyelonephritis, Cellulitis Patient Disposition: Admitted As Inpatient Interventions: Admission Worksheet (ED) Last Done: 03/07/24 17:51 Discharge Date/Time: 03/07/24 21:28
[2024-03-07] MEDS: Morphine Sulfate 4 MG/ML CARTRIDGE IVPUSH ×2 (06:50→17:21)
[2024-03-07] MEDS: HYDROmorphone HCl 0.5 MG/0.5 ML SYRINGE IVPUSH (07:48)
--- NOTE | 2024-03-07 08:27 | PC.NURSE ---
Assumed care of patient at 0700. Patient alert and oriented, c/o of 9/10 pain, Dilaudid given as ordered. CT scan performed, awaiting results.
--- NOTE | 2024-03-07 10:14 | PC.NURSE ---
's cell phone number [phone].
[2024-03-07 11:11] LABS: INTERNATIONAL NORM RATIO 2.8 (0.9-1.1)
[2024-03-07 11:13] LABS: Partial Thromboplastin Time 36.4 SEC (26.0-36.8)
[2024-03-07 11:18] LABS: Lactic Acid 1.1 mmol/L (0.5-2.0)
[2024-03-07 11:40] LABS: Glucose, Whole Blood 205 mg/dL (60-115)
--- NOTE | 2024-03-07 13:10 | ECG_ITS ---
Test Reason : ASSESS QTC Blood Pressure : / mmHG Vent. Rate : 091 BPM Atrial Rate : 000 BPM P-R Int : 000 ms QRS Dur : 090 ms QT Int : 362 ms P-R-T Axes : 000 071 -39 degrees QTc Int : 445 ms Atrial fibrillation with premature ventricular or aberrantly conducted complexes Nonspecific ST abnormality Abnormal QRS-T angle, consider primary T wave abnormality Abnormal ECG When compared with ECG of 03-JAN-2020 20:18, Vent. rate has decreased BY [address] no longer depressed in Inferior leads ST no longer depressed in Anterolateral leads T wave inversion less evident in Inferior leads T wave inversion no longer evident in Lateral leads Referred By: Gaby Upton Electronically Signed By:JAKI ANDERSON MD
[2024-03-07] MEDS: cefTRIAXone sodium 1 GM VIAL IVPUSH (14:09)
--- NOTE | 2024-03-07 15:10 | P.HPHOSP_ITS ---
History of Present Illness Date of Service: 03/07/24 Chief Complaint: Back pain [id number], with a hx of PVCs, JUDIE, heart failure, diabetes, hypertension, obesity, atrial fibrillation on Coumadin, who presents to the ED with complaints of low back pain x 3 days. Patient reports that about a week and a half ago he slipped on a stalk and slowly lowered himself to the ground, and fell onto his buttocks. He did not have pain at that time. He denies hitting his head or LOC. He states that 3 days ago he felt as though he slept wrong, and has had low back pain. He was seen on March 04 due to frequent urination, and only urinating a few drops which started 3 days prior to visit. He was started on Macrobid but was unable to provide a urine sample at that time. He has been taking this antibiotic as prescribed, last dose was this morning. He also states that he has been followed by wound care for a chronic right foot ulcer. He was started on doxycycline several days ago which he has been taking as prescribed. He denies any recent fevers, chills, abdominal pain. He did have a umbilical hernia surgery 2 days ago. He denies any chest pain or shortness for breath. Pain in his back worsens with movement. He has been taking oxycodone for his pain however states that his pain has only progressed. He denies any urinary retention or incontinence. No saddle anesthesia. In ER urine with active sediment. CT scan with perinephric stranding about the left kidney. CT of cervical spine/head negative for acute fracture. X-rays the same. Patient will be admitted for pyelonephritis Review of Systems 2 Review of Systems: Denies chest pain Denies shortness of breath Denies nausea vomiting diarrhea Denies fever chills Admits to back pain with minimal movement (secondary to mechanical fall) Denies dysuric symptoms [facility] Medical History Foot ulcer, right Ambulates with cane Cochlear implant in place Type 2 diabetes mellitus with unspecified complications Essential hypertension Persistent atrial fibrillation Osteoarthritis of left knee Deafness in left ear JUDIE (obstructive sleep apnea) Osteoarthritis Anemia Venous stasis Hard of hearing Obesity GERD (gastroesophageal reflux disease) BPH (benign prostatic hyperplasia) Diabetes Peripheral edema Atrial fibrillation COPD (chronic obstructive pulmonary disease) Chronic a-fib Family History Father No problems noted. Mother Stroke Surgical History History of umbilical hernia repair (02/18/24) Hx of total knee arthroplasty History of amputation of toe Hx of total shoulder replacement Hx of colonoscopy History of bilateral hip replacements Uses cochlear implant Social History Household Members: Spouse Housing: House Are you a primary palliative care coordinator to a significant other at home: No Do you presently have visiting nurse or other home services: No Alcohol intake: former Patient Tobacco Use Status: Former Tobacco user Tobacco use type: Cigarette Smoked in Last 30 Days: No Second Hand Smoke Exposure: No Use of substances other than those prescribed or required for medical reasons: No Advance Directives: Yes Advance Directives Information Provided: Yes Advance Directives on File: No Advance Directives Date on File: 12/31/19 service: No 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al status: retired 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 Meds Allergies Allergy/AdvReac Type Severity Reaction Status Date / Time Penicillins [PENICILLINS] Allergy Intermediate rash- Verified 03/07/24 05:00 STATES BAD RXN CHILD Active Medications: Current Medications Acetaminophen (Acetaminophen 325 Mg Tablet) 650 mg PO Q6H PRN PRN Reason: Pain, Mild 1-3,fever,headache Calcium Carbonate (Calcium Carbonate 750 Mg Tab.Chew) 750 mg PO Q4H PRN PRN Reason: Heartburn Ceftriaxone Sodium (Ceftriaxone Sodium 1 Gm Vial) 1 gm IVPUSH Q24H BESSIE Last Admin: 03/07/24 14:09 Dose: 1 gm Glucose (Glucose Gel 15 Gm Gel..Gram.) 15 gm PO Q15M PRN; Protocol PRN Reason: per Hypoglycemia Standing Ord. Dextrose (D10) 250 mls @ 750 mls/hr IV Q15M PRN; Protocol PRN Reason: per Hypoglycemia Standing Ord. Insulin Human Lispro (Insulin Lispro 100 Unit/Ml 3 Ml Vial) 0 unit SUBCUT QIDACHS BESSIE; Protocol Magnesium Hydroxide (Milk Of Magnesia 30 Ml Oral.Susp) 30 ml PO DAILY PRN PRN Reason: Constipation Melatonin (Melatonin 3 Mg Tablet) 6 mg PO BEDTIME PRN PRN Reason: Insomnia Morphine Sulfate (Morphine Sulfate 4 Mg/Ml Cartridge) 4 mg IVPUSH Q4H PRN; Protocol PRN Reason: Pain, Severe (Pain Scale 7-10) Ondansetron HCl (Ondansetron Hcl 4 Mg/2 Ml Vial) 4 mg IVPUSH Q8H PRN PRN Reason: Nausea and Vomiting Oxycodone HCl (Oxycodone Hcl Immed Release 5 Mg Tablet) 10 mg PO Q4H PRN PRN Reason: Pain, Moderate(Pain Scale 4-6) Sodium Chloride (0.9 % Sodium Chloride Flush 3 Ml Syringe) 3 [facility] Medications ?Medication ?Instructions ?Recorded ?Confirmed ?Last Taken ?Type pravastatin 80 mg tablet 80 mg PO BEDTIME 12/31/19 03/05/24 02/17/24 History tamsulosin 0.4 mg capsule 0.4 mg PO DAILY@1700 12/31/19 03/05/24 02/17/24 History cholecalciferol (vitamin D3) 25 50 mcg PO DAILY 05/08/20 03/05/24 02/17/24 History mcg (1,000 unit) capsule [id number]-[id number] tablet 1 tab PO DAILY 05/08/20 03/05/24 02/17/24 History oxycodone-acetaminophen 5 mg-325 1 tab PO 5XD PRN Pain 05/08/20 03/05/24 02/18/24 History mg tablet blood sugar diagnostic #10 ea 06/12/20 03/05/24 Unknown History pen needle, diabetic 31 gauge x #50 ea 06/12/20 03/05/24 Unknown History 05/23 carvedilol 12.5 mg tablet 12.5 mg PO BID 09/06/23 03/05/24 02/18/24 History furosemide 40 mg tablet 40 mg PO SUTUTHSA@0900 09/06/23 03/05/24 02/17/24 History glipizide 5 mg tablet, extended 10 mg PO BID 09/06/23 03/05/24 02/17/24 History release 24 hr metformin 500 mg tablet,extended 500 mg PO DAILY@1400 09/06/23 03/05/24 02/17/24 History release 24 hr metolazone 2.5 mg tablet 2.5 mg PO SA@0900 09/06/23 03/05/24 02/17/24 History warfarin 2 mg tablet 6 mg PO DAILY@1800 10/07/23 03/05/24 02/13/24 History warfarin 4 mg tablet 4 mg PO DAILY@1800 10/08/23 03/05/24 02/13/24 History furosemide 80 mg tablet 80 mg PO MOWEFR@0900 02/04/24 03/05/24 Unknown History diltiazem HCl 240 mg 240 mg PO DAILY 03/07/24 Unknown History capsule,extended release 24 hr doxycycline hyclate 100 mg capsule 100 mg PO BID 03/07/24 Unknown History metformin 500 mg tablet,extended 1,000 mg PO DAILY 03/07/24 Unknown History release 24 hr nitrofurantoin 1 cap PO Q12H 03/07/24 Unknown History monohydrate/macrocrystals 100 mg capsule Physical Exam 2 Vital Signs and Narrative: Vital Signs: Last Vital Signs Temp 99.0 F 03/07/24 14:16 Pulse 87 03/07/24 14:16 Resp 18 03/07/24 14:16 BP 126/73 03/07/24 14:16 Pulse Ox 94 03/07/24 14:16 O2 Del Method Room Air 03/07/24 14:16 BMI result Body Mass Index 38.5 Const: Other: Awake alert comfortable when lying flat Resp: Other: Clear to auscultation bilaterally no rales rhonchi or wheezes Cardio: Other: Irregularly irregular; no S4; positive S1-S2; no S3 murmurs rubs or gallops GI: Other: Soft nontender nondistended normoactive bowel sounds Extrem: Other: No edema bilaterally Results Labs 03/07/24 05:14 03/07/24 05:14 Labs: Laboratory Results - last 24 hr 03/07/24 03/07/24 03/07/24 05:14 05:44 10:43 MCV 93.1 MCH 31.8 MCHC 34.2 RDW 13.2 Plt Count 234 MPV 10.1 Immature Gran % (Auto) 0.8 H Neut % (Auto) 73.6 H Lymph % (Auto) 8.8 L [place] % (Auto) 16.0 H Eos % (Auto) 0.5 Baso % (Auto) 0.3 Lymph # (Auto) 1.2 [place] # (Auto) 2.1 H Eos # (Auto) 0.1 Baso # (Auto) 0.0 Abs Immat Gran (auto) 0.11 H Absolute Neuts (auto) 9.7 H Absolute Nucleated RBC 0.000 Nucleated RBC % (auto) 0.0 PT 33.0 H D INR 2.8 H APTT 36.4 Anion Gap 16 Estim Creat Clear Calc 76.0 Estimated GFR > 60 POC Glucose Random Glucose 205 H Lactic Acid 1.1 Calcium 9.7 Total Bilirubin 1.1 H AST 31 ALT 15 Alkaline Phosphatase 66 Total Protein 7.4 Albumin 3.7 Urine Color Yellow Urine Appearance Clear Urine pH 6.5 Ur Specific [place] 1.015 Urine Protein 30 (1+) H Urine Glucose (UA) Negative Urine Ketones 15 Urine Blood Trace H Urine Nitrite Negative Ur Leukocyte Esterase Small (1+) H Urine RBC 0-2 Urine WBC 11-20 H Ur Squamous Epith Cells 0-2 Urine Bacteria None Seen Hyaline Casts 0-2 03/07/24 11:36 MCV MCH MCHC RDW Plt Count MPV Immature Gran % (Auto) Neut % (Auto) Lymph % (Auto) [place] % (Auto) Eos % (Auto) Baso % (Auto) Lymph # (Auto) [place] # (Auto) Eos # (Auto) Baso # (Auto) Abs Immat Gran (auto) Absolute Neuts (auto) Absolute Nucleated RBC Nucleated RBC % (auto) PT INR APTT Anion Gap Estim Creat Clear Calc Estimated GFR POC Glucose 205 H Random Glucose Lactic Acid Calcium Total Bilirubin AST ALT Alkaline Phosphatase Total Protein Albumin Urine Color Urine Appearance Urine pH Ur Specific [place] Urine Protein Urine Glucose (UA) Urine Ketones Urine Blood Urine Nitrite Ur Leukocyte Esterase Urine RBC Urine WBC Ur Squamous Epith Cells Urine Bacteria Hyaline Casts Assessment and Plan (1) Acute pyelonephritis: Status: Acute (2) Persistent atrial fibrillation: Status: Acute (3) Essential hypertension: Status: Acute (4) Type 2 diabetes mellitus with unspecified complications: Status: Acute Plan 74-year-old male who presents to the ED with complaints of low back pain x 3 days; workup negative for acute fracture. Also complained of dysuric symptoms originally treated as an outpatient without documented urine; urine in ER with active sediment and CT consistent with left pyelonephritis 1. Acute left pyelonephritis -ceftriaxone (1) -morphine/oxycodone for pain -gentle IV fluids overnight -adjust therapies based on culture 2. Persistent atrial fibrillation -acceptable rate control on current therapies -warfarin at outpatient doses to keep INR between 2 and 3 -adjust therapies as clinically indicated 3. Hypertension -acceptable control on current therapies -adjust as indicated 4. Type 2 diabetes -diabetic diet -lispro correctional scale -we will continue metformin at outpatient dosing. Hold glipizide at this time. We will review sliding scale in a.m. -adjust therapies as indicated Full code Coumadin Patient will require at least 2 midnights going forward of inpatient hospitalization for IV antibiotics to treat acute left pyelonephritis. This can not be achieved a lesser acute setting Quality Stroke Does the patient have a stroke diagnosis?: No VTE Prior VTE?: No VTE Risk Level:: Medical - moderate - high VTE Device Contraindication: Treatment Not Indicated VTE Drug Contraindication: N/A - Med Ordered
--- NOTE | 2024-03-07 15:29 | PC.NURSE ---
Report given for MARTI Young, care transferred.
--- NOTE | 2024-03-07 16:31 | PHA.MEDREC ---
Addendum entered by Dianne Sams RPh 03/07/24 16:36: reviewed by [facility]. Original Note: Pharmacy Consult ? Medication Reconciliation Pharmacy has completed the medication reconciliation. Spoke to pt to confirm meds. No longer on diltiazem or insulin. Current warfarin dose is 6 mg daily.
[2024-03-07 16:34] LABS: Glucose, Whole Blood 119 mg/dL (60-115)
[2024-03-07] MEDS: 0.9 % Sodium Chloride Flush 3 ML SYRINGE IVFLUSH ×2 (17:09→21:29)
[2024-03-07] MEDS: Warfarin Sodium 6 MG TABLET PO (20:41)
[2024-03-07] MEDS: Doxycycline Monohydrate 100 MG CAPSULE PO (20:41)
[2024-03-07] MEDS: Nitrofurantoin Monohyd/M-Cryst 100 MG CAPSULE PO (20:41)
[2024-03-07 20:58] LABS: Glucose, Whole Blood 156 mg/dL (60-115)
[2024-03-07] MEDS: oxyCODONE HCl Immed Release 5 MG TABLET 10 MG PO (21:08)
[2024-03-07] MEDS: Insulin Lispro 100 UNIT/ML 3 ML VIAL SUBCUT (21:08)
[2024-03-07] MEDS: Pravastatin Sodium 80 MG TABLET PO (21:09)
[2024-03-07] MEDS: glipiZIDE XL 10 MG TAB.ER.24 PO (21:09)
--- NOTE | 2024-03-07 21:26 | PC.NURSE ---
Made aware just prior to pt being brought up to med/surg that pt has not had a BM in a couple of days. MOM PRN order for 0900 should be given. Inpatient RN Hollie made aware via tiger text.
--- NOTE | 2024-03-07 22:09 | HO.SKINPHOTO ---
RIGHT PLANTAR FOOT
[2024-03-08] MEDS: Morphine Sulfate 4 MG/ML CARTRIDGE IVPUSH ×2 (01:21→12:23)
[2024-03-08 03:24] VITALS: BP 122/65; PULSE 100; RESP 16; TEMP 37; O2SAT 95
[2024-03-08] MEDS: oxyCODONE HCl Immed Release 5 MG TABLET 10 MG PO ×4 (06:14→23:58)
[2024-03-08 06:58] LABS: Alanine Aminotransferase 13 U/L (0-40); Albumin Level 3.3 g/dL (3.5-5.0); Alkaline Phosphatase 60 U/L (39-117); Anion Gap 14 (12-20); Aspartate Amino Transferase 33 U/L (5-37); Basophils Percent Auto 0.3 % (0-2); Bilirubin Total 0.8 mg/dL (0.0-1.0); Blood Urea Nitrogen 19 mg/dL (9-16); Calcium 9.4 mg/dL (8.4-10.2); Carbon Dioxide 32 mmol/L (22-29); Chloride 99 mmol/L (96-108); Creatinine Clr Calc Pharmacy 82.3; Eosinophils Absolute Auto 0.1 X10*3/uL (0.0-0.4); Eosinophils Percent Auto 1.2 % (0-4); Estimated Glomerular Filt Rate > 60; Glucose Random 67 mg/dL (60-115); Hematocrit 35.8 % (42.0-52.0); Hemoglobin 12.3 g/dl (14.0-18.0); Imm Gran Abs Auto 0.13 X10*3/uL (0.00-0.03); Imm Gran Pct Auto 1.1 % (0.0-0.4); Lymphocytes Absolute Auto 2.1 X10*3/uL (1.2-4.9); Lymphocytes Percent Auto 17.2 % (20-40); MANUAL DIFF FLAG SCAN; Mean Corpuscular HGB Conc 34.4 g/dl (31.0-36.0); Mean Corpuscular Hemoglobin 32.4 pg (27.0-33.0); Mean Corpuscular Volume 94.2 fL (80.0-98.0); Mean Platelet Volume 10.3 fL (9.4-12.4); Monocytes Absolute Auto 2.1 X10*3/uL (0.1-1.2); Monocytes Percent Auto 17.2 % (2-11); Neutrophils Absolute Auto 7.6 x10*3/uL (2.0-8.3); Platelet Count 256 X10*3/uL (160-400); Potassium 4.1 mmol/L (3.3-5.1); Red Cell Distribution Width 13.1 % (11.0-16.0); SCAN SMEAR FLAG 1; Sodium 141 mmol/L (135-145); Total Protein 6.7 g/dL (6.5-8.0)
[2024-03-08 07:30] LABS: INTERNATIONAL NORM RATIO 3.3 (0.9-1.1); Prothrombin Time 38.9 SEC (10.9-12.4)
[2024-03-08 07:33] VITALS: BP 105/51; PULSE 87; RESP 16; TEMP 36.6; O2SAT 94
[2024-03-08 07:35] LABS: SLIDE REVIEW VERIFIED
[2024-03-08 07:40] LABS: Glucose, Whole Blood 72 mg/dL (60-115)
[2024-03-08] MEDS: metFORMIN HCl ER 500 MG TAB.ER.24H 1000 MG PO (08:25)
[2024-03-08] MEDS: Ferrous Sulfate 324 MG TABLET.DR PO (08:25)
[2024-03-08] MEDS: Doxycycline Monohydrate 100 MG CAPSULE PO ×2 (08:25→20:20)
[2024-03-08] MEDS: glipiZIDE XL 10 MG TAB.ER.24 PO ×2 (08:26→20:20)
[2024-03-08] MEDS: Furosemide 40 MG TABLET 80 MG PO (08:26)
[2024-03-08] MEDS: Multivitamin TABLET 1 TAB PO (08:27)
[2024-03-08] MEDS: carvediloL 12.5 MG TABLET PO (08:27)
[2024-03-08] MEDS: Nitrofurantoin Monohyd/M-Cryst 100 MG CAPSULE PO ×2 (08:27→20:20)
[2024-03-08] MEDS: 0.9 % Sodium Chloride Flush 3 ML SYRINGE IVFLUSH ×3 (08:28→20:20)
[2024-03-08] MEDS: Acetaminophen 325 MG TABLET 650 MG PO (10:07)
--- NOTE | 2024-03-08 11:30 | MHC.CM.PN ---
IMM DELIVERED PT LIVES WITH SPOUSE, USES CANE AND HAS WALKER THAT IS USED PRN. NO HOME SERVICES PRIOR TO ADMISSION HOWEVER IF RECOMMENDED, PT IS OPEN TO [facility] FIRST CHOICE. + HCP (PER [facility], REQUESTED) PCP DR. THOMAS. DP: HOME VS HOME WITH SERVICES. [facility] WILL TRANSPORT. CM WILL CONTINUE TO FOLLOW FOR ANY CHANGE TO DC PLAN/NEEDS.
[2024-03-08 11:34] LABS: Glucose, Whole Blood 173 mg/dL (60-115)
[2024-03-08] MEDS: Insulin Lispro 100 UNIT/ML 3 ML VIAL SUBCUT (11:43)
--- NOTE | 2024-03-08 12:40 | P.PNIM_ITS ---
Subjective Subjective Date of Service: 03/08/24 Interval History: f/u on acute pyelonephritis, uti.. c/o back pain no fever Physical Exam 2 Vital Signs: Vital Signs: Last Vital Signs Temp 97.8 F 03/08/24 07:33 Pulse 87 03/08/24 07:33 Resp 16 03/08/24 07:33 BP 105/51 L 03/08/24 07:33 Pulse Ox 94 03/08/24 07:33 O2 Del Method Room Air 03/08/24 07:33 BMI result Body Mass Index 38.7 Skin: Other: Right foot, Objective Data Active Medications Acetaminophen (Acetaminophen 325 Mg Tablet) 650 mg PO Q6H PRN PRN Reason: Pain, Mild 1-3,fever,headache Last Admin: 03/08/24 10:07 Dose: 650 mg Documented By: MAISHA Calcium Carbonate (Calcium Carbonate 750 Mg Tab.Chew) 750 mg PO Q4H PRN PRN Reason: Heartburn Carvedilol (Carvedilol 12.5 Mg Tablet) 12.5 mg PO DAILY [facility]; Protocol Last Admin: 03/08/24 08:27 Dose: 12.5 mg Documented By: TERESA Ceftriaxone Sodium (Ceftriaxone Sodium 1 Gm Vial) 1 gm IVPUSH Q24H [facility] Last Admin: 03/07/24 14:09 Dose: 1 gm Documented By: AJ Doxycycline Monohydrate (Doxycycline Monohydrate 100 Mg Capsule) 100 mg PO BID [facility] Last Admin: 03/08/24 08:25 Dose: 100 mg Documented By: TERESA Ferrous Sulfate (Ferrous Sulfate 324 Mg Tablet.Dr) 324 mg PO DAILY [facility] Last Admin: 03/08/24 08:25 Dose: 324 mg Documented By: TERESA Furosemide (Furosemide 40 Mg Tablet) 40 mg PO SUTUTHSA@0900 [facility]; Protocol Furosemide (Furosemide 40 Mg Tablet) 80 mg PO MOWEFR@0900 [facility]; Protocol Last Admin: 03/08/24 08:26 Dose: 80 mg Documented By: TERESA Glipizide (Glipizide Xl 10 Mg Tab.Er.24) 10 mg PO BID [facility] Last Admin: 03/08/24 08:26 Dose: 10 mg Documented By: TERESA Glucose (Glucose Gel 15 Gm Gel..Gram.) 15 gm PO Q15M PRN; Protocol PRN Reason: per Hypoglycemia Standing Ord. Dextrose (D10) 250 mls @ 750 mls/hr IV Q15M PRN; Protocol PRN Reason: per Hypoglycemia Standing Ord. Insulin Human Lispro (Insulin Lispro 100 Unit/Ml 3 Ml Vial) 0 unit SUBCUT QIDACHS [facility]; Protocol Last Admin: 03/08/24 11:43 Dose: 2 unit Documented By: TERESA Magnesium Hydroxide (Milk Of Magnesia 30 Ml Oral.Susp) 30 ml PO DAILY PRN PRN Reason: Constipation Melatonin (Melatonin 3 Mg Tablet) 6 mg PO BEDTIME PRN PRN Reason: Insomnia Metformin HCl (Metformin Hcl Er 500 Mg Tab.Er.24h) 500 mg PO DAILY@1400 [facility] Metformin HCl (Metformin Hcl Er 500 Mg Tab.Er.24h) 1,000 mg PO DAILY [facility] Last Admin: 03/08/24 08:25 Dose: 1,000 mg Documented By: TERESA Metolazone (Metolazone 2.5 Mg Tablet) 2.5 mg PO SA@0900 [facility] Morphine Sulfate (Morphine Sulfate 4 Mg/Ml Cartridge) 4 mg IVPUSH Q4H PRN; Protocol PRN Reason: Pain, Severe (Pain Scale 7-10) Last Admin: 03/08/24 12:23 Dose: 4 mg Documented By: BROOKLYNN Multivitamins/Vitamin C (Multivitamin Tablet) 1 tab PO DAILY [facility] Last Admin: 03/08/24 08:27 Dose: 1 tab Documented By: TERESA Nitrofurantoin Macrocrystals (Nitrofurantoin Monohyd/M-Cryst 100 Mg Capsule) 100 mg PO BID [facility] Last Admin: 03/08/24 08:27 Dose: 100 mg Documented By: TERESA Ondansetron HCl (Ondansetron Hcl 4 Mg/2 Ml Vial) 4 mg IVPUSH Q8H PRN PRN Reason: Nausea and Vomiting Oxycodone HCl (Oxycodone Hcl Immed Release 5 Mg Tablet) 10 mg PO Q4H PRN PRN Reason: Pain, Moderate(Pain Scale 4-6) Last Admin: 03/08/24 10:06 Dose: 10 mg Documented By: MAISHA Pravastatin Sodium (Pravastatin Sodium 80 Mg Tablet) 80 mg PO BEDTIME [facility] Last Admin: 03/07/24 21:09 Dose: 80 mg Documented By: HERBIE Sodium Chloride (0.9 % Sodium Chloride Flush 3 Ml Syringe) 3 ml IVFLUSH QSHIFT [facility] Last Admin: 03/08/24 08:28 Dose: 3 ml Documented By: TERESA Tamsulosin HCl (Tamsulosin Hcl 0.4 Mg Capsule) 0.4 mg PO DAILY@1700 [facility] Vitamin D (Cholecalciferol (Vitamin D3) 25 Mcg Tablet) 50 mcg PO DAILY@1600 [facility] Warfarin Sodium (Warfarin Sodium 6 Mg Tablet) 6 mg PO DAILY@1800 [facility] Labs 03/08/24 05:55 03/08/24 05:55 Labs: Laboratory Results - last 24 hr 03/07/24 03/07/24 03/08/24 16:20 20:45 05:55 MCV 94.2 MCH 32.4 MCHC 34.4 RDW 13.1 Plt Count 256 MPV 10.3 Immature Gran % (Auto) 1.1 H Neut % (Auto) 63.0 Lymph % (Auto) 17.2 L [place] % (Auto) 17.2 H Eos % (Auto) 1.2 Baso % (Auto) 0.3 Lymph # (Auto) 2.1 [place] # (Auto) 2.1 H Eos # (Auto) 0.1 Baso # (Auto) 0.0 Abs Immat Gran (auto) 0.13 H Absolute Neuts (auto) 7.6 Absolute Nucleated RBC 0.000 Nucleated RBC % (auto) 0.0 Smear Tech's Comments VERIFIED PT INR Anion Gap 14 Estim Creat Clear Calc 82.3 Estimated GFR > 60 POC Glucose 119 H 156 H Random Glucose 67 Calcium 9.4 Total Bilirubin 0.8 AST 33 ALT 13 Alkaline Phosphatase 60 Total Protein 6.7 Albumin 3.3 L 03/08/24 03/08/24 03/08/24 07:22 07:36 11:29 MCV MCH MCHC RDW Plt Count MPV Immature Gran % (Auto) Neut % (Auto) Lymph % (Auto) [place] % (Auto) Eos % (Auto) Baso % (Auto) Lymph # (Auto) [place] # (Auto) Eos # (Auto) Baso # (Auto) Abs Immat Gran (auto) Absolute Neuts (auto) Absolute Nucleated RBC Nucleated RBC % (auto) Smear Tech's Comments PT 38.9 H INR 3.3 H Anion Gap Estim Creat Clear Calc Estimated GFR POC Glucose 72 173 H Random Glucose Calcium Total Bilirubin AST ALT Alkaline Phosphatase Total Protein Albumin Microbiology Microbiology Results: Microbiology 03/07/24 Unknown Urine Culture - Preliminary Urine clean catch - Clean Catch Midstream Gram negative santino Assessment and Plan (1) Acute pyelonephritis: Status: Acute Plan 74-year-old male who presents to the ED with complaints of low back pain x 3 days; workup negative for acute fracture. Also complained of dysuric symptoms originally treated as an outpatient without documented urine; urine in ER with active sediment and CT consistent with left pyelonephritis 1. Acute left pyelonephritis -ceftriaxone started 03/07 -morphine/oxycodone for pain -iVF -urine culture growing gram negative santino -adjust abx based on culture 2. Persistent atrial fibrillation -acceptable rate control on current therapies -warfarin at outpatient doses to keep INR between 2 and 3, hold coumadin today -adjust therapies as clinically indicated 3. Hypertension -acceptable control on current therapies -adjust as indicated 4. Type 2 diabetes -diabetic diet -lispro correctional scale -we will continue metformin at outpatient dosing. Hold glipizide at this time. We will review sliding scale in a.m. -adjust therapies as indicated 5. Right heel chronic wound see pic, wound care consult Full code Coumadin Patient will require at least 2 midnights going forward of inpatient hospitalization for IV antibiotics to treat acute left pyelonephritis. This can not be achieved a lesser acute setting Quality Stroke Does the patient have a stroke diagnosis?: No VTE Prior VTE?: No VTE Risk Level:: Medical - moderate - high VTE Device Contraindication: Treatment Not Indicated VTE Drug Contraindication: N/A - Med Ordered
[2024-03-08] MEDS: cefTRIAXone sodium 1 GM VIAL IVPUSH (14:28)
[2024-03-08] MEDS: metFORMIN HCl ER 500 MG TAB.ER.24H PO (14:28)
[2024-03-08] MEDS: vancomycin/NS 2,000 MG/500 ML PLAST..BAG 250 MG IV (14:39)
--- NOTE | 2024-03-08 15:59 | PHA.PROG ---
Admission Date/Time: March 07, 2024 15:04 Indication: BACTEREMIA Weight in k.5 kg Adjusted body weight in Kg: [place] body weight in Kg: Obesity Dosing Indication % IBW: Serum Creatinine - Last 168 Hours 03/07/24 03/08/24 05:14 05:55 Creatinine 1.08 1.00 Estimated CrCl and GFR - Last 168 Hours 03/07/24 03/08/24 05:14 05:55 Estim Creat Clear Calc 76.0 82.3 Estimated GFR > 60 > 60 Vancomycin Loading Dose: 2000 MG Current Vancomycin Dosing Regimen: 750 MG Q8H Vancomycin Monitoring using AUC goal of 400 - 600 range with trough as surrogate marker: KPX=576 TROUGH=18.9 Date and Time for next Vancomycin Level to be drawn: 03/09/24 @1300 Pharmacist Comments on Vancomycin Plan: Vancomycin dosing will take advantage of [employer] as a clinical decision support tool that uses Bayesian modeling to calculate individual patient's pharmacokinetic parameters and forecast the patient's drug concentration time course with the target goal AUC 24 range of 400 - 600 mg/L/hr.
[2024-03-08 16:00] VITALS: BP 110/68; PULSE 85; RESP 18; TEMP 37.1; O2SAT 94
--- NOTE | 2024-03-08 16:00 | CA_ITS ---
Transthoracic Echocardiogram Patient (Last, First, Middle): Leonardo Pang J Gender: Male Date of : 1950 Age: 74 Procedure Date: 03/08/2024 Procedure Type: Transthoracic Echocardiogram Location: S3E Height: 172.72 cm Weight: 115.21 kg BSA: 2.26 m2 Heart Rate: bpm BP: 105 / 51 mmHg Sweet Pickle Maker: NEAL Referring MD: Karlo Shaver MD Recruiting Consultant: Miguel Valle MD Symptoms: bacteremia Study Quality: Technically Difficult due to body habitus ECG Rhythm: Atrial Fibrillation Conclusions: - 1. Technically limited study 2. Vegetations can not be ruled out on this study 3. Normal LV ejection fraction of 60-65% with mild LVH 4. Cardiac valvular Dopplers within normal limits 5. Normal RV systolic pressure Findings Left Ventricle Normal left ventricular size and systolic function. There is mildly increased left ventricular wall thickness. The visually estimated ejection fraction is between 60-65%. Regional wall motion abnormalities can not be excluded due to suboptimal endocardial definition. Diastolic function is indeterminate on the basis of available data. Right Ventricle The right ventricle was not well visualized. Atria The left atrium was not well visualized. Interatrial shunt cannot be excluded. The right atrium was not well visualized. Aortic Valve The aortic valve was not well visualized. There is no aortic valve stenosis. There is no aortic valve regurgitation. Mitral Valve The mitral valve was not well visualized. There is mild mitral annular calcification. There is trace mitral valve regurgitation. There is no mitral valve stenosis. Pulmonic Valve The pulmonic valve was not well visualized. Tricuspid Valve The tricuspid valve was not well visualized. There is mild tricuspid valve regurgitation. The right ventricular systolic pressure is normal. The right ventricular systolic pressure is 27 mmHg. Normal right atrial pressure. Great Vessels The aorta was not well visualized. The pulmonary artery was not well visualized. Venous The inferior vena cava is normal in size and collapses greater than 50% with inspiration. Pericardium/Pleural The pericardium was not well visualized. Prior Study Comparison comparison is difficult due to poor technical quality of current study Measurements 2D Linear Measurements IVSd: 1.21 0.6-0.9/0.6-1.0 cm LVIDd: 4.00 3.9-5.3/4.2-5.9 cm LVIDd Index: 1.77 2.4-3.2/2.2-3.1 cm/m2 LVIDs: 2.71 2.0-3.6 cm LVPWd: 1.22 0.7-1.1 cm Ao Root: 3.10 2.1-3.5 cm LA Diam: 3.60 2.7-3.8/3.0-4.0 cm LAIDs Index: 1.59 1.5-2.3 cm/m2 LV Mass: 209.92 67-162/88-224 g LV Mass Index: 92.89 43-95/49-115 g/m2 LVOT Diam: 2.40 3.0+(-)1.3 cm 2D Systolic Function EF 4C: 64.60 >55% EF 2C: 63.70 >55% EF BiP: 64.70 >55% Mitral Valve MV Pk E: 0.96 MV Decel Time: 215.00 E'Lateral: 15.00 E'Medial: 8.05 E/E' Med: 12.00 E/E' Lat: 6.40 PHT: 63.00 MVA PHT: 3.49 Decel Delta: 4.48 Aortic Valve AoV Pk Corey: 1.18 AoV Mn Corey: 0.76 AoV VTI: 0.22 AoV Pk Grad: 6.00 Aov Mn Grad: 3.00 EUSEBIO Cont.VTI: 2.32 LVOT LVOT Pk Corey: 0.63 LVOT Mn Corey: 0.43 LVOT VTI: 0.12 LVOT Pk Grad: 2.00 LVOT Mn Grad: 1.00 LVOT Diam: 2.40 LVOT Area: 4.52 Diastolic Function MV Pk E: 0.96 E'Medial: 8.05 E/E' Med: 12.00 E' Laterial: 15.00 E/E' Lat: 6.40 Tricuspid Valve TR Pk Corey: 2.44 TR Pk Grad: 24.00 RA Press: 3.00 RVSP: 27.00 Great Vessels Aorta Ao Root-2D: 3.10 2.0-3.7 cm Ao Asc: 3.00 2.1-3.4 cm Pulmonary Valve PV Pk Corey: 0.94 Peak PV Grad: 4.00 Updated in Other Vendor System with Status of Final Miguel Valle MD electronically signed on 03/09/2024 8:50:18 AM with status of Final
[2024-03-08 16:29] LABS: Glucose, Whole Blood 126 mg/dL (60-115)
[2024-03-08] MEDS: Cholecalciferol (Vitamin D3) 25 MCG TABLET 50 MCG PO (16:59)
[2024-03-08] MEDS: Tamsulosin HCL 0.4 MG CAPSULE PO (17:03)
[2024-03-08 19:07] VITALS: BP 115/62; PULSE 87; RESP 18; TEMP 36.9; O2SAT 95
[2024-03-08 20:10] LABS: Glucose, Whole Blood 93 mg/dL (60-115)
[2024-03-08] MEDS: Pravastatin Sodium 80 MG TABLET PO (20:20)
[2024-03-08] MEDS: vancomycin HCL 750 MG in 0.9 % Sodium Chloride 250 ML 265 MG IV (23:04)
[2024-03-09 03:25] VITALS: BP 109/67; PULSE 76; RESP 18; TEMP 37.2; O2SAT 94
[2024-03-09] MEDS: Morphine Sulfate 4 MG/ML CARTRIDGE IVPUSH ×2 (05:37→15:58)
[2024-03-09 05:57] LABS: Basophils Absolute Auto 0.1 X10*3/uL (0.0-0.2); Basophils Percent Auto 0.4 % (0-2); Eosinophils Absolute Auto 0.2 X10*3/uL (0.0-0.4); Eosinophils Percent Auto 1.9 % (0-4); Hematocrit 36.5 % (42.0-52.0); Hemoglobin 12.4 g/dl (14.0-18.0); Imm Gran Abs Auto 0.24 X10*3/uL (0.00-0.03); Imm Gran Pct Auto 2.1 % (0.0-0.4); Lymphocytes Percent Auto 17.4 % (20-40); MANUAL DIFF FLAG SCAN; Mean Corpuscular Hemoglobin 31.6 pg (27.0-33.0); Mean Corpuscular Volume 92.9 fL (80.0-98.0); Monocytes Absolute Auto 1.6 X10*3/uL (0.1-1.2); Monocytes Percent Auto 13.8 % (2-11); Neutrophils Absolute Auto 7.3 x10*3/uL (2.0-8.3); Neutrophils Percent Auto 64.4 % (45-73); Platelet Count 285 X10*3/uL (160-400); Red Blood Count 3.93 X10*6/uL (4.60-5.80); Red Cell Distribution Width 13.2 % (11.0-16.0); SCAN SMEAR FLAG 1; White Blood Count 11.3 X10*3/uL (4.8-10.8)
[2024-03-09 06:10] LABS: INTERNATIONAL NORM RATIO 3.3 (0.9-1.1); Prothrombin Time 38.4 SEC (10.9-12.4)
[2024-03-09 06:17] LABS: Alanine Aminotransferase 19 U/L (0-40); Albumin Level 3.2 g/dL (3.5-5.0); Alkaline Phosphatase 65 U/L (39-117); Anion Gap 14 (12-20); Aspartate Amino Transferase 44 U/L (5-37); Bilirubin Total 0.8 mg/dL (0.0-1.0); Blood Urea Nitrogen 31 mg/dL (9-16); Calcium 8.9 mg/dL (8.4-10.2); Carbon Dioxide 32 mmol/L (22-29); Chloride 101 mmol/L (96-108); Estimated Glomerular Filt Rate > 60; Glucose Random 49 mg/dL (60-115); Potassium 3.9 mmol/L (3.3-5.1); Sodium 143 mmol/L (135-145); Total Protein 6.8 g/dL (6.5-8.0)
--- NOTE | 2024-03-09 06:18 | PM.EVENT ---
Event Note Date of Service: 03/09/24 Event Note: Hypoglycemia noted on morning labs. Will discontinue glipizide and metformin. P.r.n. dextrose and repeat POC Time Spent With Patient Time: Total time managing care of this patient today ____ minutes.
[2024-03-09 06:25] LABS: SLIDE REVIEW VERIFIED
[2024-03-09] MEDS: Dextrose 10 % 250 ML 750 ML IV (06:26)
--- NOTE | 2024-03-09 06:30 | PC.NURSE ---
Critical glucose-49 ordered to give iv 10% dextrose 250ml per policy.will recheck poc when done.Pt asymptomatic.
[2024-03-09] MEDS: vancomycin HCL 750 MG in 0.9 % Sodium Chloride 250 ML 265 MG IV (06:46)
--- NOTE | 2024-03-09 06:50 | PC.NURSE ---
Rechecked poc after 10% dextrose-184
[2024-03-09 06:51] LABS: Glucose, Whole Blood 184 mg/dL (60-115)
[2024-03-09 07:06] VITALS: BP 130/67; PULSE 80; RESP 14; TEMP 36.9; O2SAT 93
[2024-03-09 07:15] LABS: Glucose, Whole Blood 163 mg/dL (60-115)
[2024-03-09] MEDS: Insulin Lispro 100 UNIT/ML 3 ML VIAL SUBCUT ×4 (07:45→20:39)
[2024-03-09] MEDS: Nitrofurantoin Monohyd/M-Cryst 100 MG CAPSULE PO (07:46)
[2024-03-09] MEDS: Multivitamin TABLET 1 TAB PO (07:46)
[2024-03-09] MEDS: Doxycycline Monohydrate 100 MG CAPSULE PO (07:46)
[2024-03-09] MEDS: Furosemide 40 MG TABLET PO (07:46)
[2024-03-09] MEDS: carvediloL 12.5 MG TABLET PO (07:46)
[2024-03-09] MEDS: Ferrous Sulfate 324 MG TABLET.DR PO (07:46)
[2024-03-09] MEDS: 0.9 % Sodium Chloride Flush 3 ML SYRINGE IVFLUSH ×2 (07:47→15:58)
[2024-03-09] MEDS: oxyCODONE HCl Immed Release 5 MG TABLET 10 MG PO ×3 (08:49→21:39)
[2024-03-09] MEDS: polyethylene glycoL 3350 17 GM POWD.PACK PO (08:49)
--- NOTE | 2024-03-09 10:29 | P.PNIM_ITS ---
Subjective Subjective Date of Service: 03/09/24 Interval History: f/u on acute pyelonephritis, uti.. c/o back pain no fever, still c/o overwhelming lower mid back pain I spoke with the patient's , who reported that he supposedly slipped and fell a week before [place], with pain only starting a week later. There are no neurological symptoms. An MRI could not be performed due to the presence of a cochlear implant. Physical Exam 2 Vital Signs: Vital Signs: Last Vital Signs Temp 98.5 F 03/09/24 07:06 Pulse 80 03/09/24 07:06 Resp 14 03/09/24 07:06 BP 130/67 03/09/24 07:06 Pulse Ox 93 03/09/24 07:06 O2 Del Method Room Air 03/09/24 07:06 BMI result Body Mass Index 38.7 Const: Other: General: AO X 3, no acute distress Resp: CTA bilateral CVS: S1,S2,RRR GI: +BS, NT, no distention Skin: No rash--see wound pic : no flank tenderness, lower back tenderness Neuro: motor grossly intact Psych: appropriate affect Objective Data Active Medications Acetaminophen (Acetaminophen 325 Mg Tablet) 650 mg PO Q6H PRN PRN Reason: Pain, Mild 1-3,fever,headache Last Admin: 03/08/24 10:07 Dose: 650 mg Documented By: MAISHA Calcium Carbonate (Calcium Carbonate 750 Mg Tab.Chew) 750 mg PO Q4H PRN PRN Reason: Heartburn Carvedilol (Carvedilol 12.5 Mg Tablet) 12.5 mg PO DAILY [facility]; Protocol Last Admin: 03/09/24 07:46 Dose: 12.5 mg Documented By: TERESA Ceftriaxone Sodium (Ceftriaxone Sodium 1 Gm Vial) 1 gm IVPUSH Q24H [facility] Last Admin: 03/08/24 14:28 Dose: 1 gm Documented By: MAISHA Doxycycline Monohydrate (Doxycycline Monohydrate 100 Mg Capsule) 100 mg PO BID [facility] Last Admin: 03/09/24 07:46 Dose: 100 mg Documented By: TERESA Ferrous Sulfate (Ferrous Sulfate 324 Mg Tablet.) 324 mg PO DAILY [facility] Last Admin: 03/09/24 07:46 Dose: 324 mg Documented By: TERESA Furosemide (Furosemide 40 Mg Tablet) 40 mg PO SUTUTHSA@0900 [facility]; Protocol Last Admin: 03/09/24 07:46 Dose: 40 mg Documented By: TERESA Furosemide (Furosemide 40 Mg Tablet) 80 mg PO MOWEFR@0900 [facility]; Protocol Last Admin: 03/08/24 08:26 Dose: 80 mg Documented By: TERESA Glucose (Glucose Gel 15 Gm Gel..Gram.) 15 gm PO Q15M PRN; Protocol PRN Reason: per Hypoglycemia Standing Ord. Dextrose (D10) 250 mls @ 750 mls/hr IV Q15M PRN; Protocol PRN Reason: per Hypoglycemia Standing Ord. Last Infusion: 03/09/24 07:04 Dose: Infused Documented By: TERESA Vancomycin HCl 750 mg/ Sodium (Chloride) 265 mls @ 265 mls/hr IV Q8H [facility] Last Infusion: 03/09/24 08:01 Dose: Infused Documented By: TERESA Insulin Human Lispro (Insulin Lispro 100 Unit/Ml 3 Ml Vial) 0 unit SUBCUT QIDACHS [facility]; Protocol Last Admin: 03/09/24 07:45 Dose: 2 unit Documented By: TERESA Magnesium Hydroxide (Milk Of Magnesia 30 Ml Oral.Susp) 30 ml PO DAILY PRN PRN Reason: Constipation Melatonin (Melatonin 3 Mg Tablet) 6 mg PO BEDTIME PRN PRN Reason: Insomnia Metolazone (Metolazone 2.5 Mg Tablet) 2.5 mg PO SA@0900 [facility] Morphine Sulfate (Morphine Sulfate 4 Mg/Ml Cartridge) 4 mg IVPUSH Q4H PRN; Protocol PRN Reason: Pain, Severe (Pain Scale 7-10) Last Admin: 03/09/24 05:37 Dose: 4 mg Documented By: LIGIA Multivitamins/Vitamin C (Multivitamin Tablet) 1 tab PO DAILY [facility] Last Admin: 03/09/24 07:46 Dose: 1 tab Documented By: TERESA Nitrofurantoin Macrocrystals (Nitrofurantoin Monohyd/M-Cryst 100 Mg Capsule) 100 mg PO BID [facility] Last Admin: 03/09/24 07:46 Dose: 100 mg Documented By: TERESA Ondansetron HCl (Ondansetron Hcl 4 Mg/2 Ml Vial) 4 mg IVPUSH Q8H PRN PRN Reason: Nausea and Vomiting Oxycodone HCl (Oxycodone Hcl Immed Release 5 Mg Tablet) 10 mg PO Q4H PRN PRN Reason: Pain, Moderate(Pain Scale 4-6) Last Admin: 03/09/24 08:49 Dose: 10 mg Documented By: TERESA Pharmacy Consult (Consult Rx Vancomycin Dosing) 1 each MISCELLANE DAILY PRN PRN Reason: Consult order Pravastatin Sodium (Pravastatin Sodium 80 Mg Tablet) 80 mg PO BEDTIME [facility] Last Admin: 03/08/24 20:20 Dose: 80 mg Documented By: LIGIA Sodium Chloride (0.9 % Sodium Chloride Flush 3 Ml Syringe) 3 ml IVFLUSH QSHIFT [facility] Last Admin: 03/09/24 07:47 Dose: 3 ml Documented By: TERESA Tamsulosin HCl (Tamsulosin Hcl 0.4 Mg Capsule) 0.4 mg PO DAILY@1700 [facility] Last Admin: 03/08/24 17:03 Dose: 0.4 mg Documented By: TERESA Vitamin D (Cholecalciferol (Vitamin D3) 25 Mcg Tablet) 50 mcg PO DAILY@1600 [facility] Last Admin: 03/08/24 16:59 Dose: 50 mcg Documented By: TERESA Warfarin Sodium (Warfarin Sodium 6 Mg Tablet) 6 mg PO DAILY@1800 [facility] Labs 03/09/24 05:21 03/09/24 05:21 Labs: Laboratory Results - last 24 hr 03/08/24 03/08/24 03/08/24 11:29 16:24 20:01 MCV MCH MCHC RDW Plt Count MPV Immature Gran % (Auto) Neut % (Auto) Lymph % (Auto) [place] % (Auto) Eos % (Auto) Baso % (Auto) Lymph # (Auto) [place] # (Auto) Eos # (Auto) Baso # (Auto) Abs Immat Gran (auto) Absolute Neuts (auto) Absolute Nucleated RBC Nucleated RBC % (auto) Smear Tech's Comments PT INR Anion Gap Estim Creat Clear Calc Estimated GFR POC Glucose 173 H 126 H 93 Random Glucose Calcium Total Bilirubin AST ALT Alkaline Phosphatase Total Protein Albumin 03/09/24 03/09/24 03/09/24 05:21 06:47 07:11 MCV 92.9 MCH 31.6 MCHC 34.0 RDW 13.2 Plt Count 285 MPV 10.0 Immature Gran % (Auto) 2.1 H Neut % (Auto) 64.4 Lymph % (Auto) 17.4 L [place] % (Auto) 13.8 H Eos % (Auto) 1.9 Baso % (Auto) 0.4 Lymph # (Auto) 2.0 [place] # (Auto) 1.6 H Eos # (Auto) 0.2 Baso # (Auto) 0.1 Abs Immat Gran (auto) 0.24 H Absolute Neuts (auto) 7.3 Absolute Nucleated RBC 0.000 Nucleated RBC % (auto) 0.0 Smear Tech's Comments VERIFIED PT 38.4 H INR 3.3 H Anion Gap 14 Estim Creat Clear Calc 77.0 Estimated GFR > 60 POC Glucose 184 H 163 H Random Glucose 49 L* Calcium 8.9 Total Bilirubin 0.8 AST 44 H ALT 19 Alkaline Phosphatase 65 Total Protein 6.8 Albumin 3.2 L Microbiology Microbiology Results: Microbiology 03/07/24 10:52 Blood Culture - Preliminary Blood - Venous Staphylococcus aureus 03/07/24 Unknown Urine Culture - Final Urine clean catch - Clean Catch Midstream Klebsiella pneumoniae 03/07/24 10:43 Blood Culture - Preliminary Blood - Venous No growth after 24 hours. Assessment and Plan (1) Acute pyelonephritis: Status: Acute Plan 74-year-old male who presents to the ED with complaints of low back pain x 3 days; workup negative for acute fracture. Also complained of dysuric symptoms originally treated as an outpatient without documented urine; urine in ER with active sediment and CT consistent with left pyelonephritis Acute left pyelonephritis -ceftriaxone started 03/07, culture growing Klebsiela -morphine/oxycodone for pain Staph Aurues--bacteremia, 03/11 -repeat culture -ID consult -continue Vanco -echocardiogram Back pain, ? related to fall -unable to do MRI -obtain Lumbar spine CT w/o Persistent atrial fibrillation -acceptable rate control on current therapies -warfarin at outpatient doses to keep INR between 2 and 3, hold coumadin today -adjust therapies as clinically indicated Hypertension -acceptable control on current therapies -adjust as indicated Type 2 diabetes, hypoglycemia -diabetic diet -lispro correctional scale -hold metformin and glipizide Right heel chronic wound see pic, wound care consult Full code Coumadin Patient will require at least 2 midnights going forward of inpatient hospitalization for IV antibiotics to treat acute left pyelonephritis. This can not be achieved a lesser acute setting Quality Stroke Does the patient have a stroke diagnosis?: No VTE Prior VTE?: No VTE Risk Level:: Medical - moderate - high VTE Device Contraindication: Treatment Not Indicated VTE Drug Contraindication: N/A - Med Ordered
[2024-03-09 11:06] LABS: Glucose, Whole Blood 193 mg/dL (60-115)
--- NOTE | 2024-03-09 12:12 | P.CNID_ITS ---
History of Present Illness Data of Consult Service Date: 03/09/24 [facility] Primary Care Provider: Darien Bruner MD HPI Reason for consult: staph aureus bacteremia,klebsiella pneumonia urine,03/07 He presents with weakness and 8/10 low back pain,worse when walking with leg weakness. He has urinary hesitancy as well and placed on Macrobid two days. He has had right foot ulcer plantar nonhealing for six months. He sees Wound Care and gets debridement and walking boots. He has Charcot foot bilaterally and has pointed calluses plantar areas where right ulcer formed. He has echo no obvious vegetation. He has Klebsiella pneumonia urine [id number] as well as MSSA blood /2 positive on 03/07. He has been started on Ceftriaxone and Vancomycin. He has cochlear implants and cant take MRIs. He has DM ,JUDIE,CHF history He had allergy to Penicillin at age 4,was very sick and had it for [place] measles . His PCP is Dr Teo Bruner who is retiring and looking for new PCP. Review of Systems 2 Review of Systems: Yes all other systems are reviewed and are negative Musculoskeletal: Musculoskeletal: Reports back pain PMFSH Past Medical History Medical History (Updated 03/09/24 @ 12:20 by Diana Mendoza MD) MSSA bacteremia Foot ulcer, right Ambulates with cane Cochlear implant in place Type 2 diabetes mellitus with unspecified complications Essential hypertension Persistent atrial fibrillation Osteoarthritis of left knee Deafness in left ear JUDIE (obstructive sleep apnea) Osteoarthritis Anemia Venous stasis Hard of hearing Obesity GERD (gastroesophageal reflux disease) BPH (benign prostatic hyperplasia) Diabetes Peripheral edema Atrial fibrillation COPD (chronic obstructive pulmonary disease) Chronic a-fib Family History Family History Father No problems noted. Mother Stroke Surgical History Surgical History History of umbilical hernia repair (02/18/24) Hx of total knee arthroplasty History of amputation of toe Hx of total shoulder replacement Hx of colonoscopy History of bilateral hip replacements Uses cochlear implant Social History Social History Household Members: Spouse Housing: House Are you a primary day care home provider to a significant other at home: No Do you presently have visiting nurse or other home services: No Alcohol intake: former Patient Tobacco Use Status: Former Tobacco user Tobacco use type: Cigarette Second Hand Smoke Exposure: No Advance Directives Date on File: 12/31/19 service: No 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al status: retired 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 Meds Allergies Allergy/AdvReac Type Severity Reaction Status Date / Time Penicillins [PENICILLINS] Allergy Intermediate rash- Verified 03/07/24 05:00 STATES BAD RXN CHILD Active Medications: Current Medications Acetaminophen (Acetaminophen 325 Mg Tablet) 650 mg PO Q6H PRN PRN Reason: Pain, Mild 1-3,fever,headache Last Admin: 03/08/24 10:07 Dose: 650 mg Calcium Carbonate (Calcium Carbonate 750 Mg Tab.Chew) 750 mg PO Q4H PRN PRN Reason: Heartburn Carvedilol (Carvedilol 12.5 Mg Tablet) 12.5 mg PO DAILY [facility]; Protocol Last Admin: 03/09/24 07:46 Dose: 12.5 mg Ceftriaxone Sodium (Ceftriaxone Sodium 1 Gm Vial) 1 gm IVPUSH Q24H [facility] Last Admin: 03/08/24 14:28 Dose: 1 gm Ferrous Sulfate (Ferrous Sulfate 324 Mg Tablet.Dr) 324 mg PO DAILY [facility] Last Admin: 03/09/24 07:46 Dose: 324 mg Furosemide (Furosemide 40 Mg Tablet) 40 mg PO SUTUTHSA@0900 [facility]; Protocol Last Admin: 03/09/24 07:46 Dose: 40 mg Furosemide (Furosemide 40 Mg Tablet) 80 mg PO MOWEFR@0900 [facility]; Protocol Last Admin: 03/08/24 08:26 Dose: 80 mg Glucose (Glucose Gel 15 Gm Gel..Gram.) 15 gm PO Q15M PRN; Protocol PRN Reason: per Hypoglycemia Standing Ord. Dextrose (D10) 250 mls @ 750 mls/hr IV Q15M PRN; Protocol PRN Reason: per Hypoglycemia Standing Ord. Last Infusion: 03/09/24 07:04 Dose: Infused Vancomycin HCl 750 mg/ Sodium (Chloride) 265 mls @ 265 mls/hr IV Q8H [facility] Last Infusion: 03/09/24 08:01 Dose: Infused Insulin Human Lispro (Insulin Lispro 100 Unit/Ml 3 Ml Vial) 0 unit SUBCUT QIDACHS [facility]; Protocol Last Admin: 03/09/24 07:45 Dose: 2 unit Magnesium Hydroxide (Milk Of Magnesia 30 Ml Oral.Susp) 30 ml PO DAILY PRN PRN Reason: Constipation Melatonin (Melatonin 3 Mg Tablet) 6 mg PO BEDTIME PRN PRN Reason: Insomnia Metolazone (Metolazone 2.5 Mg Tablet) 2.5 mg PO SA@0900 [facility] Morphine Sulfate (Morphine Sulfate 4 Mg/Ml Cartridge) 4 mg IVPUSH Q4H PRN; Protocol PRN Reason: Pain, Severe (Pain Scale 7-10) Last Admin: 03/09/24 05:37 Dose: 4 mg Multivitamins/Vitamin C (Multivitamin Tablet) 1 tab PO DAILY [facility] Last Admin: 03/09/24 07:46 Dose: 1 tab Ondansetron HCl (Ondansetron Hcl 4 Mg/2 Ml Vial) 4 mg IVPUSH Q8H PRN PRN Reason: Nausea and Vomiting Oxycodone HCl (Oxycodone Hcl Immed Release 5 Mg Tablet) 10 mg PO Q4H PRN PRN Reason: Pain, Moderate(Pain Scale 4-6) Last Admin: 03/09/24 08:49 Dose: 10 mg Pharmacy Consult (Consult Rx Vancomycin Dosing) 1 each MISCELLANE DAILY PRN PRN Reason: Consult order Pravastatin Sodium (Pravastatin Sodium 80 Mg Tablet) 80 mg PO BEDTIME [facility] Last Admin: 03/08/24 20:20 Dose: 80 mg Sodium Chloride (0.9 % Sodium Chloride Flush 3 Ml Syringe) [facility] Last Admin: 03/09/24 07:47 Dose: 3 ml Tamsulosin HCl (Tamsulosin Hcl 0.4 Mg Capsule) 0.4 mg PO DAILY@1700 [facility] Last Admin: 03/08/24 17:03 Dose: 0.4 mg Vitamin D (Cholecalciferol (Vitamin D3) 25 Mcg Tablet) 50 mcg PO DAILY@1600 [facility] Last Admin: 03/08/24 16:59 Dose: 50 mcg Warfarin Sodium (Warfarin Sodium 6 Mg Tablet) 6 mg PO DAILY@1800 [facility] Home Medications ?Medication ?Instructions ?Recorded ?Confirmed ?Last Taken ?Type pravastatin 80 mg tablet 80 mg PO BEDTIME 12/31/19 03/07/24 03/06/24 History tamsulosin 0.4 mg capsule 0.4 mg PO DAILY@1700 12/31/19 03/07/24 03/06/24 History cholecalciferol (vitamin D3) 25 50 mcg PO DAILY@1600 05/08/20 03/07/24 03/06/24 History mcg (1,000 unit) capsule [id number] tablet 1 tab PO DAILY 05/08/20 03/07/24 03/06/24 History oxycodone-acetaminophen 5 mg-325 1 tab PO 5XD PRN Pain 05/08/20 03/07/24 02/18/24 History mg tablet blood sugar diagnostic #10 ea 06/12/20 03/05/24 Unknown History pen needle, diabetic 31 gauge x #50 ea 06/12/20 03/05/24 Unknown History 05/23 carvedilol 12.5 mg tablet 12.5 mg PO DAILY 09/06/23 03/07/24 03/06/24 History furosemide 40 mg tablet 40 mg PO SUTUTHSA@0900 09/06/23 03/07/24 03/06/24 History glipizide 5 mg tablet, extended 10 mg PO BID 09/06/23 03/07/24 03/06/24 History release 24 hr metformin 500 mg tablet,extended 500 mg PO DAILY@1400 09/06/23 03/07/24 03/06/24 History release 24 hr metolazone 2.5 mg tablet 2.5 mg PO SA@0900 09/06/23 03/07/24 03/06/24 History warfarin 2 mg tablet 6 mg PO DAILY@1800 10/07/23 03/07/24 03/06/24 History furosemide 80 mg tablet 80 mg PO MOWEFR@0900 02/04/24 03/07/24 03/05/24 History doxycycline hyclate 100 mg capsule 100 mg PO BID 03/07/24 03/07/24 03/06/24 History ferrous sulfate 325 mg (65 mg 325 mg PO DAILY 03/07/24 03/07/24 03/06/24 History iron) tablet (iron) metformin 500 mg tablet,extended 1,000 mg PO DAILY 03/07/24 03/07/24 03/06/24 History release 24 hr nitrofurantoin 1 cap PO Q12H 03/07/24 03/07/24 03/06/24 History monohydrate/macrocrystals 100 mg capsule Physical Exam 2 Vital Signs: Vital Signs: Last Vital Signs Temp 98.5 F 03/09/24 07:06 Pulse 80 03/09/24 07:06 Resp 14 03/09/24 07:06 BP 130/67 03/09/24 07:06 Pulse Ox 93 03/09/24 07:06 O2 Del Method Room Air 03/09/24 07:06 BMI result Body Mass Index 38.7 Const: General: cooperative HEENT: Other: cochlear implant Head: Yes normal to inspection Face and sinus: Yes normal facial exam Mouth: Normal oral and palatal mucosa present Teeth and gingiva: dentition normal Eyes: General: appearance normal, both eyes and all related structures P upils: Equal, round and reactive pupils present Resp: Effort & Inspection: normal respiratory effort Cardio: Rate: regular rate Rhythm: regular rhythm GI: Other: well healing umbilical hernia repair incision Palpation (GI): Soft to palpation and nontender : General: Yes no CVA tenderness Back/Spine/Pelvis: Back: no CVA tenderness Thoracic/Lumbar Spine: lumbar spinal tenderness Skin: General skin exam: no rashes or lesions noted Neuro: General: moves all extremities Cranial nerves: Yes Equal, round and reactive pupils present Extrem: Other: neuropathy bilateral Charcot joint ulcer right plantar foot 3 x 5 cm Psych: Appearance: grossly normal Results Labs 03/09/24 05:21 03/09/24 05:21 Labs: Short CBC 03/09/24 Range/Units 05:21 WBC 11.3 H (4.8-10.8) X10*3/uL Hgb 12.4 L (14.0-18.0) g/dl Hct 36.5 L (42.0-52.0) % Plt Count 285 (160-400) X10*3/uL BMP 03/09/24 05:21 Sodium 143 Potassium 3.9 Chloride 101 Carbon Dioxide 32 H BUN 31 H Creatinine 1.07 Calcium 8.9 Liver Function 03/09/24 Range/Units 05:21 Total Bilirubin 0.8 (0.0-1.0) mg/dL AST 44 H (5-37) U/L ALT 19 (0-40) U/L Alkaline Phosphatase 65 (39-117) U/L Albumin 3.2 L (3.5-5.0) g/dL Microbiology Microbiology Results: Microbiology 03/07/24 10:52 Blood - Venous Blood Culture - Preliminary Staphylococcus aureus 03/07/24 Unknown Urine clean catch - Clean Catch Midstream Urine Culture - Final Klebsiella pneumoniae 03/07/24 10:43 Blood - Venous Blood Culture - Preliminary No growth after 24 hours. Assessment and Plan (1) Acute pyelonephritis: Status: Acute (2) Diabetic foot ulcer: Qualifiers: Diabetes mellitus type: type 2 Diabetic foot ulcer location: midfoot L aterality: right Non-pressure ulcer stage: limited to breakdown of skin Q ualified Code(s): E11.621 - Type 2 diabetes mellitus with foot ulcer; L97.411 - Non-pressure chronic ulcer of right heel and midfoot limited to breakdown of skin Status: Acute (3) MSSA bacteremia: Status: Acute Plan Would switch to IV Kefzol 2 g every 8 hours,renal dose adjust as needed cover urine and possible OM LS spine or foot. He should get CT scan LS spine with contrast if able. He should also get CT scan right foot,plantar evaluate OM. Repeat blood culture. Duration of IV antibiotics to be determined.
[2024-03-09] MEDS: ceFAZolin Sodium/Dextrose,Iso 2 GM/50 ML PIGGYBACK IV ×2 (13:10→20:39)
[2024-03-09 13:56] LABS: Vancomycin Random 18.9 mcg/mL (15-20)
[2024-03-09 15:08] VITALS: BP 134/75; PULSE 70; RESP 16; TEMP 37.1; O2SAT 93
[2024-03-09 16:10] LABS: Glucose, Whole Blood 213 mg/dL (60-115)
[2024-03-09] MEDS: Cholecalciferol (Vitamin D3) 25 MCG TABLET 50 MCG PO (16:58)
[2024-03-09] MEDS: Tamsulosin HCL 0.4 MG CAPSULE PO (16:58)
[2024-03-09] MEDS: iohexoL 350 MG/ML 100 ML INFUS..BTL 85 ML IV (17:31)
[2024-03-09 20:00] VITALS: BP 109/56; PULSE 92; RESP 17; TEMP 36.7; O2SAT 93
[2024-03-09 20:23] LABS: Glucose, Whole Blood 177 mg/dL (60-115)
[2024-03-09] MEDS: Pravastatin Sodium 80 MG TABLET PO (20:40)
[2024-03-10] MEDS: 0.9 % Sodium Chloride Flush 3 ML SYRINGE IVFLUSH ×3 (00:32→19:43)
[2024-03-10 04:00] VITALS: BP 103/67; PULSE 88; RESP 17; TEMP 36.6; O2SAT 94
[2024-03-10] MEDS: ceFAZolin Sodium/Dextrose,Iso 2 GM/50 ML PIGGYBACK IV ×3 (04:27→19:43)
[2024-03-10] MEDS: Morphine Sulfate 4 MG/ML CARTRIDGE IVPUSH ×2 (04:27→11:18)
[2024-03-10] MEDS: Milk of Magnesia 30 ML ORAL.SUSP PO (05:47)
[2024-03-10 06:28] LABS: MANUAL DIFF FLAG NO
[2024-03-10 06:35] LABS: Basophils Absolute Auto 0.1 X10*3/uL (0.0-0.2); Basophils Percent Auto 0.6 % (0-2); Eosinophils Absolute Auto 0.3 X10*3/uL (0.0-0.4); Eosinophils Percent Auto 2.7 % (0-4); Hematocrit 37.2 % (42.0-52.0); Hemoglobin 12.4 g/dl (14.0-18.0); Imm Gran Abs Auto 0.26 X10*3/uL (0.00-0.03); Imm Gran Pct Auto 2.4 % (0.0-0.4); Lymphocytes Absolute Auto 1.6 X10*3/uL (1.2-4.9); Lymphocytes Percent Auto 14.3 % (20-40); Mean Corpuscular HGB Conc 33.3 g/dl (31.0-36.0); Mean Corpuscular Hemoglobin 31.6 pg (27.0-33.0); Mean Corpuscular Volume 94.7 fL (80.0-98.0); Mean Platelet Volume 10.2 fL (9.4-12.4); Monocytes Absolute Auto 1.2 X10*3/uL (0.1-1.2); Monocytes Percent Auto 10.7 % (2-11); Neutrophils Absolute Auto 7.6 x10*3/uL (2.0-8.3); Neutrophils Percent Auto 69.3 % (45-73); Platelet Count 314 X10*3/uL (160-400); Red Blood Count 3.93 X10*6/uL (4.60-5.80); Red Cell Distribution Width 13.2 % (11.0-16.0); White Blood Count 10.9 X10*3/uL (4.8-10.8)
[2024-03-10 06:55] LABS: Alanine Aminotransferase 17 U/L (0-40); Albumin Level 3.2 g/dL (3.5-5.0); Alkaline Phosphatase 66 U/L (39-117); Anion Gap 15 (12-20); Aspartate Amino Transferase 37 U/L (5-37); Bilirubin Total 0.6 mg/dL (0.0-1.0); Blood Urea Nitrogen 30 mg/dL (9-16); Calcium 9.2 mg/dL (8.4-10.2); Carbon Dioxide 30 mmol/L (22-29); Chloride 101 mmol/L (96-108); Creatinine Clr Calc Pharmacy 88.5; Estimated Glomerular Filt Rate > 60; Glucose Random 162 mg/dL (60-115); Potassium 4.2 mmol/L (3.3-5.1); Sodium 142 mmol/L (135-145); Total Protein 6.9 g/dL (6.5-8.0)
[2024-03-10 07:01] LABS: INTERNATIONAL NORM RATIO 2.7 (0.9-1.1); Prothrombin Time 31.9 SEC (10.9-12.4)
[2024-03-10 07:17] VITALS: BP 125/69; PULSE 92; RESP 16; TEMP 36.2; O2SAT 94
[2024-03-10 07:40] LABS: Glucose, Whole Blood 159 mg/dL (60-115)
[2024-03-10] MEDS: Insulin Lispro 100 UNIT/ML 3 ML VIAL SUBCUT ×4 (08:12→20:31)
[2024-03-10] MEDS: carvediloL 12.5 MG TABLET PO (08:12)
[2024-03-10] MEDS: Furosemide 40 MG TABLET 80 MG PO (08:13)
[2024-03-10] MEDS: Ferrous Sulfate 324 MG TABLET.DR PO (08:13)
[2024-03-10] MEDS: Multivitamin TABLET 1 TAB PO (08:13)
[2024-03-10] MEDS: oxyCODONE HCl Immed Release 5 MG TABLET 10 MG PO ×3 (08:20→22:12)
[2024-03-10] MEDS: Acetaminophen 325 MG TABLET 650 MG PO ×3 (08:21→22:12)
--- NOTE | 2024-03-10 09:16 | P.PNIM_ITS ---
Subjective Subjective Date of Service: 03/10/24 Interval History: f/u on acute pyelonephritis, uti.. c/o back pain no fever, back pain is better, ct no abscess or fracture, advanced DJD Physical Exam 2 Vital Signs: Vital Signs: Last Vital Signs Temp 97.2 F 03/10/24 07:17 Pulse 92 03/10/24 07:17 Resp 16 03/10/24 07:17 BP 125/69 03/10/24 07:17 Pulse Ox 94 03/10/24 07:17 O2 Del Method Room Air 03/10/24 07:17 BMI result Body Mass Index 38.7 Const: Other: General: AO X 3, no acute distress, hard of hearting Resp: CTA bilateral CVS: S1,S2,RRR GI: +BS, NT, no distention Skin: No rash--see wound pic : no flank tenderness, lower back tenderness Neuro: motor grossly intact Psych: appropriate affect Objective Data Active Medications Acetaminophen (Acetaminophen 325 Mg Tablet) 650 mg PO Q6H PRN PRN Reason: Pain, Mild 1-3,fever,headache Last Admin: 03/10/24 08:21 Dose: 650 mg Documented By: SHLOMO Calcium Carbonate (Calcium Carbonate 750 Mg Tab.Chew) 750 mg PO Q4H PRN PRN Reason: Heartburn Carvedilol (Carvedilol 12.5 Mg Tablet) 12.5 mg PO DAILY [facility]; Protocol Last Admin: 03/10/24 08:12 Dose: 12.5 mg Documented By: SHLOMO Ferrous Sulfate (Ferrous Sulfate 324 Mg Tablet.) 324 mg PO DAILY [facility] Last Admin: 03/10/24 08:13 Dose: 324 mg Documented By: SHLOMO Furosemide (Furosemide 40 Mg Tablet) 40 mg PO SUTUTHSA@0900 [facility]; Protocol Last Admin: 03/09/24 07:46 Dose: 40 mg Documented By: TERESA Furosemide (Furosemide 40 Mg Tablet) 80 mg PO MOWEFR@0900 [facility]; Protocol Last Admin: 03/10/24 08:13 Dose: 80 mg Documented By: SHLOMO Glucose (Glucose Gel 15 Gm Gel..Gram.) 15 gm PO Q15M PRN; Protocol PRN Reason: per Hypoglycemia Standing Ord. Dextrose (D10) 250 mls @ 750 mls/hr IV Q15M PRN; Protocol PRN Reason: per Hypoglycemia Standing Ord. Last Infusion: 03/09/24 07:04 Dose: Infused Documented By: TERESA Cefazolin Sodium/Dextrose (Ancef) 2 gm in 50 mls @ 100 mls/hr IV Q8H [facility] Last Infusion: 03/10/24 04:58 Dose: Infused Documented By: KT Insulin Human Lispro (Insulin Lispro 100 Unit/Ml 3 Ml Vial) 0 unit SUBCUT QIDACHS [facility]; Protocol Last Admin: 03/10/24 08:12 Dose: 2 unit Documented By: SHLOMO Magnesium Hydroxide (Milk Of Magnesia 30 Ml Oral.Susp) 30 ml PO DAILY PRN PRN Reason: Constipation Last Admin: 03/10/24 05:47 Dose: 30 ml Documented By: KT Melatonin (Melatonin 3 Mg Tablet) 6 mg PO BEDTIME PRN PRN Reason: Insomnia Metolazone (Metolazone 2.5 Mg Tablet) 2.5 mg PO SA@0900 [facility] Morphine Sulfate (Morphine Sulfate 4 Mg/Ml Cartridge) 4 mg IVPUSH Q4H PRN; Protocol PRN Reason: Pain, Severe (Pain Scale 7-10) Last Admin: 03/10/24 04:27 Dose: 4 mg Documented By: KT Multivitamins/Vitamin C (Multivitamin Tablet) 1 tab PO DAILY [facility] Last Admin: 03/10/24 08:13 Dose: 1 tab Documented By: SHLOMO Ondansetron HCl (Ondansetron Hcl 4 Mg/2 Ml Vial) 4 mg IVPUSH Q8H PRN PRN Reason: Nausea and Vomiting Oxycodone HCl (Oxycodone Hcl Immed Release 5 Mg Tablet) 10 mg PO Q4H PRN PRN Reason: Pain, Moderate(Pain Scale 4-6) Last Admin: 03/10/24 08:20 Dose: 10 mg Documented By: SHLOMO Pravastatin Sodium (Pravastatin Sodium 80 Mg Tablet) 80 mg PO BEDTIME [facility] Last Admin: 03/09/24 20:40 Dose: 80 mg Documented By: KT Sodium Chloride (0.9 % Sodium Chloride Flush 3 Ml Syringe) 3 ml IVFLUSH QSHIFT [facility] Last Admin: 03/10/24 08:27 Dose: Not Given Documented By: SHLOMO Non-Admin Reason: Previously Administered Tamsulosin HCl (Tamsulosin Hcl 0.4 Mg Capsule) 0.4 mg PO DAILY@1700 [facility] Last Admin: 03/09/24 16:58 Dose: 0.4 mg Documented By: TERESA Vitamin D (Cholecalciferol (Vitamin D3) 25 Mcg Tablet) 50 mcg PO DAILY@1600 [facility] Last Admin: 03/09/24 16:58 Dose: 50 mcg Documented By: TERESA Warfarin Sodium (Warfarin Sodium 6 Mg Tablet) 6 mg PO DAILY@1800 [facility] Labs 03/10/24 05:38 03/10/24 05:38 Labs: Laboratory Results - last 24 hr 03/09/24 03/09/24 03/09/24 11:03 13:19 16:02 MCV MCH MCHC RDW Plt Count MPV Immature Gran % (Auto) Neut % (Auto) Lymph % (Auto) [place] % (Auto) Eos % (Auto) Baso % (Auto) Lymph # (Auto) [place] # (Auto) Eos # (Auto) Baso # (Auto) Abs Immat Gran (auto) Absolute Neuts (auto) Absolute Nucleated RBC Nucleated RBC % (auto) PT INR Anion Gap Estim Creat Clear Calc Estimated GFR POC Glucose 193 H 213 H Random Glucose Calcium Total Bilirubin AST ALT Alkaline Phosphatase Total Protein Albumin Random Vancomycin 18.9 03/09/24 03/10/24 03/10/24 20:19 05:38 07:21 MCV 94.7 MCH 31.6 MCHC 33.3 RDW 13.2 Plt Count 314 MPV 10.2 Immature Gran % (Auto) 2.4 H Neut % (Auto) 69.3 Lymph % (Auto) 14.3 L [place] % (Auto) 10.7 Eos % (Auto) 2.7 Baso % (Auto) 0.6 Lymph # (Auto) 1.6 [place] # (Auto) 1.2 Eos # (Auto) 0.3 Baso # (Auto) 0.1 Abs Immat Gran (auto) 0.26 H Absolute Neuts (auto) 7.6 Absolute Nucleated RBC 0.000 Nucleated RBC % (auto) 0.0 PT 31.9 H INR 2.7 H Anion Gap 15 Estim Creat Clear Calc 88.5 Estimated GFR > 60 POC Glucose 177 H 159 H Random Glucose 162 H Calcium 9.2 Total Bilirubin 0.6 AST 37 ALT 17 Alkaline Phosphatase 66 Total Protein 6.9 Albumin 3.2 L Random Vancomycin Microbiology Microbiology Results: Microbiology 03/07/24 10:52 Blood Culture - Final Blood - Venous Staphylococcus aureus 03/07/24 10:43 Blood Culture - Preliminary Blood - Venous No growth after 48 hours. 03/07/24 Unknown Urine Culture - Final Urine clean catch - Clean Catch Midstream Klebsiella pneumoniae Assessment and Plan (1) Acute pyelonephritis: Status: Acute Plan 74-year-old male who presents to the ED with complaints of low back pain x 3 days; workup negative for acute fracture. Also complained of dysuric symptoms originally treated as an outpatient without documented urine; urine in ER with active sediment and CT consistent with left pyelonephritis Acute left pyelonephritis -ceftriaxone started 03/07, culture growing Klebsiela seins to ceft -morphine/oxycodone for pain Staph Aurues--bacteremia, 03/11 -repeat culture 03/09 -ID recommends Kefzol started 03/[address] vanco -echocardiogram 03/09, vegetation cannot be ruled, if repeat culture +, will suggest CONNIE Back pain, ? related to fall -unable to do MRI d/t cochlear implant -lumbar spine CT : 1. No acute fracture in the lumbar spine. 2. Advanced degenerative changes most prominent at L3-4. Persistent atrial fibrillation -acceptable rate control on current therapies -warfarin at outpatient doses to keep INR between 2 and 3, resume coumadin Hypertension -acceptable control on current therapies Type 2 diabetes, hypoglycemia -diabetic diet -lispro correctional scale -hold metformin and glipizide Right heel chronic wound see pic, wound care consult -CT, no osteo Full code Coumadin Patient will require at least 2 midnights going forward of inpatient hospitalization for IV antibiotics to treat acute left pyelonephritis. This can not be achieved a lesser acute setting Quality Stroke Does the patient have a stroke diagnosis?: No VTE Prior VTE?: No VTE Risk Level:: Medical - moderate - high VTE Device Contraindication: Treatment Not Indicated VTE Drug Contraindication: N/A - Med Ordered
[2024-03-10 11:19] LABS: Glucose, Whole Blood 212 mg/dL (60-115)
[2024-03-10 15:09] VITALS: BP 117/67; PULSE 88; RESP 18; TEMP 36.3; O2SAT 94
[2024-03-10] MEDS: Cholecalciferol (Vitamin D3) 25 MCG TABLET 50 MCG PO (15:27)
[2024-03-10 15:55] LABS: Glucose, Whole Blood 237 mg/dL (60-115)
[2024-03-10] MEDS: Warfarin Sodium 6 MG TABLET PO (17:43)
[2024-03-10] MEDS: Tamsulosin HCL 0.4 MG CAPSULE PO (17:43)
[2024-03-10 19:03] VITALS: BP 112/61; PULSE 87; RESP 15; TEMP 36.3; O2SAT 95
[2024-03-10] MEDS: Pravastatin Sodium 80 MG TABLET PO (19:43)
[2024-03-10 20:19] LABS: Glucose, Whole Blood 234 mg/dL (60-115)
[2024-03-11] MEDS: oxyCODONE HCl Immed Release 5 MG TABLET 10 MG PO ×2 (02:12→13:30)
[2024-03-11 03:41] VITALS: BP 130/63; PULSE 77; RESP 16; TEMP 36.4; O2SAT 96
[2024-03-11] MEDS: ceFAZolin Sodium/Dextrose,Iso 2 GM/50 ML PIGGYBACK IV ×3 (03:54→21:16)
[2024-03-11 06:24] LABS: INTERNATIONAL NORM RATIO 2.4 (0.9-1.1); Prothrombin Time 27.9 SEC (10.9-12.4)
[2024-03-11 07:11] VITALS: BP 110/71; PULSE 80; RESP 18; TEMP 36.2; O2SAT 95
[2024-03-11 07:17] LABS: Glucose, Whole Blood 185 mg/dL (60-115)
[2024-03-11] MEDS: Insulin Lispro 100 UNIT/ML 3 ML VIAL SUBCUT ×4 (07:37→21:10)
[2024-03-11] MEDS: 0.9 % Sodium Chloride Flush 3 ML SYRINGE IVFLUSH ×3 (07:38→21:11)
[2024-03-11] MEDS: Ferrous Sulfate 324 MG TABLET.DR PO (08:04)
[2024-03-11] MEDS: Furosemide 40 MG TABLET PO (08:04)
[2024-03-11] MEDS: Multivitamin TABLET 1 TAB PO (08:04)
[2024-03-11] MEDS: carvediloL 12.5 MG TABLET PO (08:04)
[2024-03-11] MEDS: Morphine Sulfate 4 MG/ML CARTRIDGE IVPUSH ×2 (08:05→21:10)
--- NOTE | 2024-03-11 09:06 | P.PNIM_ITS ---
Subjective Subjective Date of Service: 03/11/24 Interval History: f/u on acute pyelonephritis, uti.. c/o back pain no fever, back pain is better, ct no abscess or fracture, advanced DJD had a hard time last night but better this morning Physical Exam 2 Vital Signs: Vital Signs: Last Vital Signs Temp 97.2 F 03/11/24 07:11 Pulse 80 03/11/24 07:11 Resp 18 03/11/24 07:11 BP 110/71 03/11/24 07:11 Pulse Ox 95 03/11/24 07:11 O2 Del Method Room Air 03/11/24 07:11 BMI result Body Mass Index 38.7 Objective Data Active Medications Acetaminophen (Acetaminophen 325 Mg Tablet) 650 mg PO Q6H PRN PRN Reason: Pain, Mild 1-3,fever,headache Last Admin: 03/10/24 22:12 Dose: 650 mg Documented By: LUCAS Calcium Carbonate (Calcium Carbonate 750 Mg Tab.Chew) 750 mg PO Q4H PRN PRN Reason: Heartburn Carvedilol (Carvedilol 12.5 Mg Tablet) 12.5 mg PO DAILY [facility]; Protocol Last Admin: 03/11/24 08:04 Dose: 12.5 mg Documented By: JAYCE Ferrous Sulfate (Ferrous Sulfate 324 Mg Tablet.) 324 mg PO DAILY [facility] Last Admin: 03/11/24 08:04 Dose: 324 mg Documented By: JAYCE Furosemide (Furosemide 40 Mg Tablet) 40 mg PO SUTUTHSA@0900 [facility]; Protocol Last Admin: 03/11/24 08:04 Dose: 40 mg Documented By: JAYCE Furosemide (Furosemide 40 Mg Tablet) 80 mg PO MOWEFR@0900 [facility]; Protocol Last Admin: 03/10/24 08:13 Dose: 80 mg Documented By: SHLOMO Glucose (Glucose Gel 15 Gm Gel..Gram.) 15 gm PO Q15M PRN; Protocol PRN Reason: per Hypoglycemia Standing Ord. Dextrose (D10) 250 mls @ 750 mls/hr IV Q15M PRN; Protocol PRN Reason: per Hypoglycemia Standing Ord. Last Infusion: 03/09/24 07:04 Dose: Infused Documented By: TERESA Cefazolin Sodium/Dextrose (Ancef) 2 gm in 50 mls @ 100 mls/hr IV Q8H [facility] Last Infusion: 03/11/24 04:29 Dose: Infused Documented By: LUCAS Insulin Human Lispro (Insulin Lispro 100 Unit/Ml 3 Ml Vial) 0 unit SUBCUT QIDACHS [facility]; Protocol Last Admin: 03/11/24 07:37 Dose: 2 unit Documented By: JAYCE Magnesium Hydroxide (Milk Of Magnesia 30 Ml Oral.Susp) 30 ml PO DAILY PRN PRN Reason: Constipation Last Admin: 03/10/24 05:47 Dose: 30 ml Documented By: KT Melatonin (Melatonin 3 Mg Tablet) 6 mg PO BEDTIME PRN PRN Reason: Insomnia Metolazone (Metolazone 2.5 Mg Tablet) 2.5 mg PO SA@0900 [facility] Morphine Sulfate (Morphine Sulfate 4 Mg/Ml Cartridge) 4 mg IVPUSH Q4H PRN; Protocol PRN Reason: Pain, Severe (Pain Scale 7-10) Last Admin: 03/11/24 08:05 Dose: 4 mg Documented By: JAYCE Multivitamins/Vitamin C (Multivitamin Tablet) 1 tab PO DAILY [facility] Last Admin: 03/11/24 08:04 Dose: 1 tab Documented By: JAYCE Ondansetron HCl (Ondansetron Hcl 4 Mg/2 Ml Vial) 4 mg IVPUSH Q8H PRN PRN Reason: Nausea and Vomiting Oxycodone HCl (Oxycodone Hcl Immed Release 5 Mg Tablet) 10 mg PO Q4H PRN PRN Reason: Pain, Moderate(Pain Scale 4-6) Last Admin: 03/11/24 02:12 Dose: 10 mg Documented By: LUCAS Pravastatin Sodium (Pravastatin Sodium 80 Mg Tablet) 80 mg PO BEDTIME [facility] Last Admin: 03/10/24 19:43 Dose: 80 mg Documented By: LUCAS Sodium Chloride (0.9 % Sodium Chloride Flush 3 Ml Syringe) 3 ml IVFLUSH QSHIFT [facility] Last Admin: 03/11/24 07:38 Dose: 3 ml Documented By: JAYCE Tamsulosin HCl (Tamsulosin Hcl 0.4 Mg Capsule) 0.4 mg PO DAILY@1700 [facility] Last Admin: 03/10/24 17:43 Dose: 0.4 mg Documented By: LUCAS Vitamin D (Cholecalciferol (Vitamin D3) 25 Mcg Tablet) 50 mcg PO DAILY@1600 [facility] Last Admin: 03/10/24 15:27 Dose: 50 mcg Documented By: LUCAS Warfarin Sodium (Warfarin Sodium 6 Mg Tablet) 6 mg PO DAILY@1800 [facility] Last Admin: 03/10/24 17:43 Dose: 6 mg Documented By: LUCAS Labs 03/10/24 05:38 03/10/24 05:38 Labs: Laboratory Results - last 24 hr 03/10/24 03/10/24 03/10/24 05:38 11:10 15:48 PT INR POC Glucose 212 H 237 H Magnesium 2.0 03/10/24 03/11/24 03/11/24 20:15 05:38 07:10 PT 27.9 H INR 2.4 H POC Glucose 234 H 185 H Magnesium Microbiology Microbiology Results: Microbiology 03/09/24 08:28 Blood Culture - Preliminary Blood - Venous No growth after 24 hours. 03/09/24 08:28 Blood Culture - Preliminary Blood - Venous No growth after 24 hours. 03/07/24 10:52 Blood Culture - Final Blood - Venous Staphylococcus aureus Assessment and Plan (1) Acute pyelonephritis: Status: Acute Plan 74-year-old male who presents to the ED with complaints of low back pain x 3 days; workup negative for acute fracture. Also complained of dysuric symptoms originally treated as an outpatient without documented urine; urine in ER with active sediment and CT consistent with left pyelonephritis Acute left pyelonephritis -ceftriaxone started 03/07, culture growing Klebsiela sens to ceft -morphine/oxycodone for pain Staph Aurues--bacteremia, 03/11 -repeat culture 03/09 -ID recommends Kefzol started 03/[address] vanco -echocardiogram 03/09, vegetation cannot be ruled, if repeat culture +, will suggest CONNIE Back pain, ? related to fall -unable to do MRI d/t cochlear implant -lumbar spine CT : 1. No acute fracture in the lumbar spine. 2. Advanced degenerative changes most prominent at L3-4. -adjust pain meds, lidocaine patch Persistent atrial fibrillation -acceptable rate control on current therapies -warfarin at outpatient doses to keep INR between 2 and 3, continue coumadin Hypertension -acceptable control on current therapies Type 2 diabetes, hypoglycemia -diabetic diet -lispro correctional scale -resume metformin, hold glipizide Right heel chronic wound see pic, wound care consult -CT, no osteo Full code Coumadin Patient will require at least 2 midnights going forward of inpatient hospitalization for IV antibiotics to treat acute left pyelonephritis. This can not be achieved a lesser acute setting Quality Stroke Does the patient have a stroke diagnosis?: No VTE Prior VTE?: No VTE Risk Level:: Medical - moderate - high VTE Device Contraindication: Treatment Not Indicated VTE Drug Contraindication: N/A - Med Ordered
[2024-03-11] MEDS: Milk of Magnesia 30 ML ORAL.SUSP PO (09:16)
[2024-03-11] MEDS: Lidocaine 4 % Patch ADH..PATCH 1 PATCH TRANSDERMA (10:09)
[2024-03-11 11:28] LABS: Glucose, Whole Blood 225 mg/dL (60-115)
--- NOTE | 2024-03-11 13:29 | HO.WOUND ---
Wound Consult: Initial 74yr old?male admitted to [facility] on 03/07/24 - See progress notes and H&P for detailed history.? Wound consult placed for Right Plantar Wound - Chronic.? Patient agreeable to assessment and photo documentation.? Patient reports he treats regularly at the out pt wound clinic - he reports he is awaiting arrival of his [place] boot for off loading and prevention. Recommend patient continue to follow up outpt with wound clinic. Right Plantar Wound Etiology: ?Chronic Diabetic Wound Measurements: 2cm x 3.8cm x 0.2cm Wound Bed: red moist wound bed - clean Drainage / Odor: foul smelling capellan drainage trapped under thickened callused - removed with wound cleansing Edges: ? irregulr Keshia wound: ?dry callused tissue No Induration, Fluctuance or Warmth noted Pain: denies Goals of Treatment: ? Iodoflex to treat biofilm given chronic wound and then switch to Durafiber ater 3 days. Recommendations: 1. Turn and Reposition every 2 hours and as needed for patient comfort.? Use pillows or wedges to support off loading positions. 2. Off Load all bony prominences with use of pillows and heel boots if needed.? Apply Preventative foams where needed. ? 3. Monitor for incontinence and moisture control, use barrier creams when needed for prevention and treatment. 4. Provide adequate and supplemental nutrition.? 5. Order low air loss mattress. 6. When applicable maintain blood glucose levels per Providers order. 7. Right Plantar Foot - Elevate Right Leg on pillows be sure to float heels.? Cleanse with saline, pat dry. ?Apply Iodoflex to wound bed cover with gauze, wrap and tape. ?Change every other day.?? Iodoflex left at bedside. Note the Iodoflex will be applied brown and over the course of time as the Iodine is absorbed into the wound bed the color will change to yellow / cream signifying time to replace.?? Iodoflex is only available from the wound care nurse. After three days (03/14/24) patient should switch to Durafiber to the wound bed and change every other day as well. Re-consult wound care Nurse for wound deterioration or wound changes.
[2024-03-11 16:00] VITALS: BP 125/61; PULSE 82; RESP 14; TEMP 36.5; O2SAT 94
[2024-03-11 16:24] LABS: Glucose, Whole Blood 196 mg/dL (60-115)
[2024-03-11] MEDS: Tamsulosin HCL 0.4 MG CAPSULE PO (16:26)
[2024-03-11] MEDS: Cholecalciferol (Vitamin D3) 25 MCG TABLET 50 MCG PO (16:27)
[2024-03-11] MEDS: Warfarin Sodium 6 MG TABLET PO (17:30)
[2024-03-11 19:54] VITALS: BP 130/69; PULSE 73; RESP 16; TEMP 36.4; O2SAT 92
[2024-03-11 20:48] LABS: Glucose, Whole Blood 254 mg/dL (60-115)
[2024-03-11] MEDS: Pravastatin Sodium 80 MG TABLET PO (21:11)
[2024-03-12 03:25] VITALS: BP 131/67; PULSE 67; RESP 18; TEMP 36.8; O2SAT 96
[2024-03-12] MEDS: Morphine Sulfate 4 MG/ML CARTRIDGE IVPUSH (04:09)
[2024-03-12] MEDS: ceFAZolin Sodium/Dextrose,Iso 2 GM/50 ML PIGGYBACK IV ×3 (04:11→20:22)
[2024-03-12 06:14] LABS: INTERNATIONAL NORM RATIO 2.6 (0.9-1.1); Prothrombin Time 30.9 SEC (10.9-12.4)
[2024-03-12] MEDS: Multivitamin TABLET 1 TAB PO (07:15)
[2024-03-12] MEDS: Ferrous Sulfate 324 MG TABLET.DR PO (07:15)
[2024-03-12] MEDS: 0.9 % Sodium Chloride Flush 3 ML SYRINGE IVFLUSH ×3 (07:15→20:22)
[2024-03-12] MEDS: Acetaminophen 325 MG TABLET 650 MG PO (07:15)
[2024-03-12] MEDS: oxyCODONE HCl Immed Release 5 MG TABLET 10 MG PO ×4 (07:15→20:21)
[2024-03-12] MEDS: Lidocaine 4 % Patch ADH..PATCH 1 PATCH TRANSDERMA (07:16)
[2024-03-12 07:29] LABS: Glucose, Whole Blood 163 mg/dL (60-115)
[2024-03-12 07:45] VITALS: BP 126/78; PULSE 74; RESP 18; TEMP 36.4; O2SAT 94
[2024-03-12] MEDS: carvediloL 12.5 MG TABLET PO (08:05)
[2024-03-12] MEDS: Insulin Lispro 100 UNIT/ML 3 ML VIAL SUBCUT ×4 (08:05→20:22)
[2024-03-12] MEDS: Furosemide 40 MG TABLET 80 MG PO (08:06)
[2024-03-12 09:18] VITALS: BP 126/78; PULSE 74; O2SAT 94
[2024-03-12 09:31] LABS: Anion Gap 12 (12-20); Blood Urea Nitrogen 30 mg/dL (9-16); Carbon Dioxide 31 mmol/L (22-29); Chloride 100 mmol/L (96-108); Creatinine Clr Calc Pharmacy 83.2; Estimated Glomerular Filt Rate > 60; Glucose Random 213 mg/dL (60-115); Sodium 139 mmol/L (135-145)
[2024-03-12 11:15] LABS: Glucose, Whole Blood 211 mg/dL (60-115)
--- NOTE | 2024-03-12 13:15 | P.CDIM_ITS ---
PROVIDER RESPONSE TEXT: To clarify, the appropriate diagnosis supported by the clinical indicators: Diastolic: systolic QUERY TEXT: PHYSICIAN'S DOCUMENTATION REQUEST Date of Query: 03/12/2024 08:07 AM EST Patient Name: Leonardo Pang Admit Date: 03/07/2024 Dear Karlo Shaver MD, A review of the medical record indicates additional documentation may be needed. Please review below and update the documentation accordingly. Clinical Indicators: H&P 03/07 - Past medical history of Congestive heart failure. Home Medication: Furosemide 80mg Tab No edema bilaterally. Lasix ID consultation note 03/09 - Past medical history: CHF Please provide further specificity regarding the most likely type and acuity of CHF you are evaluatin g, treating, or monitoring. Systolic Please specify if Acute, Chronic, or Acute on chronic, or Unable to determine Diastolic Please specify if Acute, Chronic, or Acute on chronic, or Unable to determine Combined Systolic/Diastolic Please specify if Acute, Chronic, or Acute on chronic, or Unable to determine Other (explain) Clinically unable to determine (explain) Thank you, Candace Kumar, CCS, CDIS Use of terms such as suspected, likely, concern for, or probable (associated with a specific diagnosi s that is being evaluated, monitored, or treated as if it exists) are acceptable and can be coded in the inpatient se tting, when documented at the time of discharge. Please use your independent medical judgment in providing your response. THIS QUERY IS PART OF THE PERMANENT MEDICAL RECORD
[2024-03-12 16:00] VITALS: BP 120/60; PULSE 85; RESP 18; TEMP 36.9; O2SAT 95
[2024-03-12 16:28] LABS: Glucose, Whole Blood 219 mg/dL (60-115)
--- NOTE | 2024-03-12 16:38 | P.PNIM_ITS ---
Subjective Subjective Date of Service: 03/12/24 Interval History: f/u on acute pyelonephritis, uti.. c/o back pain no fever, back pain is better, ct no abscess or fracture, advanced DJD still with back pain, lidocaine seems to help Physical Exam 2 Vital Signs: Vital Signs: Last Vital Signs Temp 98.5 F 03/12/24 16:00 Pulse 85 03/12/24 16:00 Resp 18 03/12/24 16:00 BP 120/60 03/12/24 16:00 Pulse Ox 95 03/12/24 16:00 O2 Del Method Room Air 03/12/24 16:00 BMI result Body Mass Index 38.7 Objective Data Active Medications Acetaminophen (Acetaminophen 325 Mg Tablet) 650 mg PO Q6H PRN PRN Reason: Pain, Mild 1-3,fever,headache Last Admin: 03/12/24 07:15 Dose: 650 mg Documented By: MAISHA Calcium Carbonate (Calcium Carbonate 750 Mg Tab.Chew) 750 mg PO Q4H PRN PRN Reason: Heartburn Carvedilol (Carvedilol 12.5 Mg Tablet) 12.5 mg PO DAILY [facility]; Protocol Last Admin: 03/12/24 08:05 Dose: 12.5 mg Documented By: JAYCE Ferrous Sulfate (Ferrous Sulfate 324 Mg Tablet.) 324 mg PO DAILY [facility] Last Admin: 03/12/24 07:15 Dose: 324 mg Documented By: MAISHA Furosemide (Furosemide 40 Mg Tablet) 40 mg PO SUTUTHSA@0900 [facility]; Protocol Last Admin: 03/11/24 08:04 Dose: 40 mg Documented By: JAYCE Furosemide (Furosemide 40 Mg Tablet) 80 mg PO MOWEFR@0900 [facility]; Protocol Last Admin: 03/12/24 08:06 Dose: 80 mg Documented By: JAYCE Glucose (Glucose Gel 15 Gm Gel..Gram.) 15 gm PO Q15M PRN; Protocol PRN Reason: per Hypoglycemia Standing Ord. Dextrose (D10) 250 mls @ 750 mls/hr IV Q15M PRN; Protocol PRN Reason: per Hypoglycemia Standing Ord. Last Infusion: 03/09/24 07:04 Dose: Infused Documented By: TERESA Cefazolin Sodium/Dextrose (Ancef) 2 gm in 50 mls @ 100 mls/hr IV Q8H [facility] Last Infusion: 03/12/24 12:33 Dose: Infused Documented By: JAYCE Insulin Human Lispro (Insulin Lispro 100 Unit/Ml 3 Ml Vial) 0 unit SUBCUT QIDACHS [facility]; Protocol Last Admin: 03/12/24 11:22 Dose: 4 unit Documented By: MAISHA Lidocaine (Lidocaine 4 % Patch Adh..Patch) 1 patch TRANSDERMA DAILY [facility]; Protocol Last Admin: 03/12/24 07:16 Dose: 1 patch Documented By: MAISHA Magnesium Hydroxide (Milk Of Magnesia 30 Ml Oral.Susp) 30 ml PO DAILY PRN PRN Reason: Constipation Last Admin: 03/11/24 09:16 Dose: 30 ml Documented By: JAYCE Melatonin (Melatonin 3 Mg Tablet) 6 mg PO BEDTIME PRN PRN Reason: Insomnia Metolazone (Metolazone 2.5 Mg Tablet) 2.5 mg PO SA@0900 [facility] Multivitamins/Vitamin C (Multivitamin Tablet) 1 tab PO DAILY [facility] Last Admin: 03/12/24 07:15 Dose: 1 tab Documented By: MAISHA Ondansetron HCl (Ondansetron Hcl 4 Mg/2 Ml Vial) 4 mg IVPUSH Q8H PRN PRN Reason: Nausea and Vomiting Pravastatin Sodium (Pravastatin Sodium 80 Mg Tablet) 80 mg PO BEDTIME [facility] Last Admin: 03/11/24 21:11 Dose: 80 mg Documented By: JOVANNI Sodium Chloride (0.9 % Sodium Chloride Flush 3 Ml Syringe) 3 ml IVFLUSH QSHIFT [facility] Last Admin: 03/12/24 15:05 Dose: 3 ml Documented By: JAYCE Tamsulosin HCl (Tamsulosin Hcl 0.4 Mg Capsule) 0.4 mg PO DAILY@1700 [facility] Last Admin: 03/11/24 16:26 Dose: 0.4 mg Documented By: JAYCE Vitamin D (Cholecalciferol (Vitamin D3) 25 Mcg Tablet) 50 mcg PO DAILY@1600 [facility] Last Admin: 03/11/24 16:27 Dose: 50 mcg Documented By: JAYCE Warfarin Sodium (Warfarin Sodium 6 Mg Tablet) 6 mg PO DAILY@1800 [facility] Last Admin: 03/11/24 17:30 Dose: 6 mg Documented By: JAYCE Labs 03/10/24 05:38 03/12/24 08:51 Labs: Laboratory Results - last 24 hr 03/11/24 03/12/24 03/12/24 20:36 05:32 07:24 PT 30.9 H INR 2.6 H Anion Gap Estim Creat Clear Calc Estimated GFR POC Glucose 254 H 163 H Random Glucose Calcium 03/12/24 03/12/24 03/12/24 08:51 11:11 16:16 PT INR Anion Gap 12 Estim Creat Clear Calc 83.2 Estimated GFR > 60 POC Glucose 211 H 219 H Random Glucose 213 H Calcium 9.0 Microbiology Microbiology Results: Microbiology 03/07/24 10:43 Blood Culture - Final Blood - Venous No growth after 5 days. Assessment and Plan (1) Acute pyelonephritis: Status: Acute Plan 74-year-old male who presents to the ED with complaints of low back pain x 3 days; workup negative for acute fracture. Also complained of dysuric symptoms originally treated as an outpatient without documented urine; urine in ER with active sediment and CT consistent with left pyelonephritis Acute left pyelonephritis -ceftriaxone started 03/07, culture growing Klebsiela sens to ceft -morphine/oxycodone for pain Staph Aurues--bacteremia, 03/11 -repeat culture 03/09 -ID recommends Kefzol started 03/[address] vanco -echocardiogram 03/09, vegetation cannot be ruled, -will need picc line for 4 to 6 weeks of iv Abx Back pain, ? related to fall -unable to do MRI d/t cochlear implant -lumbar spine CT : 1. No acute fracture in the lumbar spine. 2. Advanced degenerative changes most prominent at L3-4. -adjust pain meds, lidocaine patch Persistent atrial fibrillation -acceptable rate control on current therapies -warfarin at outpatient doses to keep INR between 2 and 3, continue coumadin Hypertension -acceptable control on current therapies Type 2 diabetes, hypoglycemia -diabetic diet -lispro correctional scale -resume metformin, hold glipizide Right heel chronic wound see pic, wound care consult -CT, no osteo Full code Coumadin Patient will require at least 2 midnights going forward of inpatient hospitalization for IV antibiotics to treat acute left pyelonephritis. This can not be achieved a lesser acute setting Quality Stroke Does the patient have a stroke diagnosis?: No VTE Prior VTE?: No VTE Risk Level:: Medical - moderate - high VTE Device Contraindication: Treatment Not Indicated VTE Drug Contraindication: N/A - Med Ordered
[2024-03-12] MEDS: Cholecalciferol (Vitamin D3) 25 MCG TABLET 50 MCG PO (16:39)
[2024-03-12] MEDS: Tamsulosin HCL 0.4 MG CAPSULE PO (16:39)
[2024-03-12] MEDS: Warfarin Sodium 6 MG TABLET PO (17:47)
[2024-03-12 19:14] LABS: Glucose, Whole Blood 268 mg/dL (60-115)
[2024-03-12 19:38] VITALS: BP 108/73; PULSE 98; RESP 18; TEMP 36.4; O2SAT 96
[2024-03-12] MEDS: Pravastatin Sodium 80 MG TABLET PO (20:21)
[2024-03-13] MEDS: oxyCODONE HCl Immed Release 5 MG TABLET 10 MG PO ×4 (01:25→23:10)
[2024-03-13 03:36] VITALS: BP 121/67; PULSE 70; RESP 18; TEMP 36.8; O2SAT 94
[2024-03-13] MEDS: ceFAZolin Sodium/Dextrose,Iso 2 GM/50 ML PIGGYBACK IV ×3 (04:29→20:43)
[2024-03-13] MEDS: Morphine Sulfate 4 MG/ML CARTRIDGE IVPUSH (04:41)
[2024-03-13 07:04] LABS: INTERNATIONAL NORM RATIO 2.6 (0.9-1.1); Prothrombin Time 30.5 SEC (10.9-12.4)
[2024-03-13 07:13] VITALS: BP 132/70; PULSE 76; RESP 16; TEMP 36.9; O2SAT 97
[2024-03-13 07:31] LABS: Glucose, Whole Blood 176 mg/dL (60-115)
[2024-03-13] MEDS: Lidocaine 4 % Patch ADH..PATCH 1 PATCH TRANSDERMA (07:56)
[2024-03-13] MEDS: Insulin Lispro 100 UNIT/ML 3 ML VIAL SUBCUT ×4 (07:57→20:43)
[2024-03-13] MEDS: metOLazone 2.5 MG TABLET PO (07:57)
[2024-03-13] MEDS: Furosemide 40 MG TABLET PO (07:57)
[2024-03-13] MEDS: carvediloL 12.5 MG TABLET PO (07:57)
[2024-03-13] MEDS: Multivitamin TABLET 1 TAB PO (07:57)
[2024-03-13] MEDS: Ferrous Sulfate 324 MG TABLET.DR PO (07:57)
[2024-03-13] MEDS: 0.9 % Sodium Chloride Flush 3 ML SYRINGE IVFLUSH ×3 (07:58→20:43)
--- NOTE | 2024-03-13 09:57 | HO.PM.IMPN ---
Subjective Subjective Date of Service: 03/13/24 Interval History: f/u on acute pyelonephritis, uti.. c/o back pain no fever, back pain is better, ct no abscess or fracture, advanced DJD Back pain is better, has severe constipation now Physical Exam Vital Signs: Vital Signs: Last Vital Signs Temp 98.4 F 03/13/24 07:13 Pulse 76 03/13/24 07:13 Resp 16 03/13/24 07:13 BP 132/70 03/13/24 07:13 Pulse Ox 97 03/13/24 07:13 O2 Del Method Room Air 03/13/24 07:13 BMI result Body Mass Index 38.7 Const: Other: General: AO X 3, no acute distress, hard of hearting Resp: CTA bilateral CVS: S1,S2,RRR GI: +BS, NT, no distention Skin: No rash--see wound pic : no flank tenderness, lower back tenderness Neuro: motor grossly intact Psych: appropriate affect Objective Data Active Medications Acetaminophen (Acetaminophen 325 Mg Tablet) 650 mg PO Q6H PRN PRN Reason: Pain, Mild 1-3,fever,headache Last Admin: 03/12/24 07:15 Dose: 650 mg Documented By: MAISHA Calcium Carbonate (Calcium Carbonate 750 Mg Tab.Chew) 750 mg PO Q4H PRN PRN Reason: Heartburn Carvedilol (Carvedilol 12.5 Mg Tablet) 12.5 mg PO DAILY [facility]; Protocol Last Admin: 03/13/24 07:57 Dose: 12.5 mg Documented By: TERESA Ferrous Sulfate (Ferrous Sulfate 324 Mg Tablet.) 324 mg PO DAILY [facility] Last Admin: 03/13/24 07:57 Dose: 324 mg Documented By: TERESA Furosemide (Furosemide 40 Mg Tablet) 40 mg PO SUTUTHSA@0900 [facility]; Protocol Last Admin: 03/13/24 07:57 Dose: 40 mg Documented By: TERESA Furosemide (Furosemide 40 Mg Tablet) 80 mg PO MOWEFR@0900 [facility]; Protocol Last Admin: 03/12/24 08:06 Dose: 80 mg Documented By: JAYCE Glucose (Glucose Gel 15 Gm Gel..Gram.) 15 gm PO Q15M PRN; Protocol PRN Reason: per Hypoglycemia Standing Ord. Dextrose (D10) 250 mls @ 750 mls/hr IV Q15M PRN; Protocol PRN Reason: per Hypoglycemia Standing Ord. Last Infusion: 03/09/24 07:04 Dose: Infused Documented By: TERESA Cefazolin Sodium/Dextrose (Ancef) 2 gm in 50 mls @ 100 mls/hr IV Q8H [facility] Last Infusion: 03/13/24 05:05 Dose: Infused Documented By: AILEEN Insulin Human Lispro (Insulin Lispro 100 Unit/Ml 3 Ml Vial) 0 unit SUBCUT QIDACHS [facility]; Protocol Last Admin: 03/13/24 07:57 Dose: 2 unit Documented By: TERESA Lidocaine (Lidocaine 4 % Patch Adh..Patch) 1 patch TRANSDERMA DAILY [facility]; Protocol Last Admin: 03/13/24 07:56 Dose: 1 patch Documented By: TERESA Magnesium Hydroxide (Milk Of Magnesia 30 Ml Oral.Susp) 30 ml PO DAILY PRN PRN Reason: Constipation Last Admin: 03/11/24 09:16 Dose: 30 ml Documented By: JAYCE Melatonin (Melatonin 3 Mg Tablet) 6 mg PO BEDTIME PRN PRN Reason: Insomnia Metolazone (Metolazone 2.5 Mg Tablet) 2.5 mg PO SA@0900 [facility] Last Admin: 03/13/24 07:57 Dose: 2.5 mg Documented By: TERESA Morphine Sulfate (Morphine Sulfate 4 Mg/Ml Cartridge) 4 mg IVPUSH Q4H PRN; Protocol PRN Reason: Pain, Severe (Pain Scale 7-10) Last Admin: 03/13/24 04:41 Dose: 4 mg Documented By: AILEEN Multivitamins/Vitamin C (Multivitamin Tablet) 1 tab PO DAILY [facility] Last Admin: 03/13/24 07:57 Dose: 1 tab Documented By: TERESA Ondansetron HCl (Ondansetron Hcl 4 Mg/2 Ml Vial) 4 mg IVPUSH Q8H PRN PRN Reason: Nausea and Vomiting Oxycodone HCl (Oxycodone Hcl Immed Release 5 Mg Tablet) 10 mg PO Q4H PRN PRN Reason: Pain, Moderate(Pain Scale 4-6) Last Admin: 03/13/24 08:05 Dose: 10 mg Documented By: TERESA Pravastatin Sodium (Pravastatin Sodium 80 Mg Tablet) 80 mg PO BEDTIME [facility] Last Admin: 03/12/24 20:21 Dose: 80 mg Documented By: CARMINERISHolli Sodium Chloride (0.9 % Sodium Chloride Flush 3 Ml Syringe) 3 ml IVFLUSH QSHIFT [facility] Last Admin: 03/13/24 07:58 Dose: 3 ml Documented By: TERESA Tamsulosin HCl (Tamsulosin Hcl 0.4 Mg Capsule) 0.4 mg PO DAILY@1700 [facility] Last Admin: 03/12/24 16:39 Dose: 0.4 mg Documented By: JAYCE Vitamin D (Cholecalciferol (Vitamin D3) 25 Mcg Tablet) 50 mcg PO DAILY@1600 [facility] Last Admin: 03/12/24 16:39 Dose: 50 mcg Documented By: JAYCE Warfarin Sodium (Warfarin Sodium 6 Mg Tablet) 6 mg PO DAILY@1800 [facility] Last Admin: 03/12/24 17:47 Dose: 6 mg Documented By: JAYCE Labs 03/10/24 05:38 03/12/24 08:51 Labs: Laboratory Results - last 24 hr 03/12/24 03/12/24 03/12/24 11:11 16:16 19:09 Hold Purple Top PT INR POC Glucose 211 H 219 H 268 H 03/13/24 03/13/24 05:48 07:16 Hold Purple Top SEE NOTE PT 30.5 H INR 2.6 H POC Glucose 176 H Microbiology Microbiology Results: Microbiology 03/07/24 10:43 Blood Culture - Final Blood - Venous No growth after 5 days. Assessment and Plan (1) Acute pyelonephritis: Status: Acute Plan 74-year-old male who presents to the ED with complaints of low back pain x 3 days; workup negative for acute fracture. Also complained of dysuric symptoms originally treated as an outpatient without documented urine; urine in ER with active sediment and CT consistent with left pyelonephritis Acute left pyelonephritis -ceftriaxone started 03/07, culture growing Klebsiela now on Kefzol -morphine/oxycodone for pain Staph Aurues--bacteremia, 03/11 -repeat culture 03/09 no growth -ID recommends Kefzol started 03/09 for 6 week -echocardiogram 03/09, vegetation cannot be ruled out but was poor study -will need picc line for 4 to 6 weeks of iv Abx Back pain, ? related to fall -unable to do MRI d/t cochlear implant -lumbar spine CT : 1. No acute fracture in the lumbar spine. 2. Advanced degenerative changes most prominent at L3-4. -adjust pain meds, lidocaine patch Persistent atrial fibrillation -acceptable rate control on current therapies -warfarin at outpatient doses to keep INR between 2 and 3, continue coumadin Hypertension -acceptable control on current therapies Type 2 diabetes, hypoglycemia -diabetic diet -lispro correctional scale -resume metformin, hold glipizide Right heel chronic wound see pic, wound care consult -CT, no osteo Constipation--add enema, miralax Full code Coumadin Patient will require at least 2 midnights going forward of inpatient hospitalization for IV antibiotics to treat acute left pyelonephritis. This can not be achieved a lesser acute setting Plan discussed with patient and at the bedside Quality Stroke Does the patient have a stroke diagnosis?: No VTE Prior VTE?: No VTE Risk Level:: Medical - moderate - high VTE Device Contraindication: Treatment Not Indicated VTE Drug Contraindication: N/A - Med Ordered
[2024-03-13] MEDS: polyethylene glycoL 3350 17 GM POWD.PACK PO (10:28)
[2024-03-13 11:31] LABS: Glucose, Whole Blood 241 mg/dL (60-115)
[2024-03-13 15:12] VITALS: BP 130/68; PULSE 86; RESP 18; TEMP 36.6; O2SAT 96
[2024-03-13] MEDS: Cholecalciferol (Vitamin D3) 25 MCG TABLET 50 MCG PO (15:18)
[2024-03-13 16:20] LABS: Glucose, Whole Blood 207 mg/dL (60-115)
[2024-03-13] MEDS: Tamsulosin HCL 0.4 MG CAPSULE PO (18:08)
[2024-03-13] MEDS: Warfarin Sodium 6 MG TABLET PO (18:09)
[2024-03-13 19:30] VITALS: BP 117/64; PULSE 80; RESP 18; TEMP 36.6; O2SAT 96
[2024-03-13 20:30] LABS: Glucose, Whole Blood 242 mg/dL (60-115)
[2024-03-13] MEDS: Pravastatin Sodium 80 MG TABLET PO (20:43)
[2024-03-14 03:13] VITALS: BP 131/59; PULSE 72; RESP 18; TEMP 36.6; O2SAT 97
[2024-03-14] MEDS: ceFAZolin Sodium/Dextrose,Iso 2 GM/50 ML PIGGYBACK IV ×3 (04:37→20:26)
[2024-03-14 07:20] LABS: INTERNATIONAL NORM RATIO 2.9 (0.9-1.1); Prothrombin Time 33.8 SEC (10.9-12.4)
[2024-03-14 07:34] VITALS: BP 128/70; PULSE 82; RESP 16; TEMP 36.6; O2SAT 96
[2024-03-14 07:40] LABS: Glucose, Whole Blood 172 mg/dL (60-115)
[2024-03-14] MEDS: 0.9 % Sodium Chloride Flush 3 ML SYRINGE IVFLUSH ×3 (08:31→20:27)
[2024-03-14] MEDS: Multivitamin TABLET 1 TAB PO (08:31)
[2024-03-14] MEDS: carvediloL 12.5 MG TABLET PO (08:31)
[2024-03-14] MEDS: Ferrous Sulfate 324 MG TABLET.DR PO (08:31)
[2024-03-14] MEDS: Insulin Lispro 100 UNIT/ML 3 ML VIAL SUBCUT ×4 (08:31→20:42)
[2024-03-14] MEDS: Lidocaine 4 % Patch ADH..PATCH 1 PATCH TRANSDERMA (08:32)
[2024-03-14] MEDS: Furosemide 40 MG TABLET PO (08:41)
--- NOTE | 2024-03-14 09:47 | P.PNIM_ITS ---
Subjective Subjective Date of Service: 03/14/24 Interval History: no new issues, back pain is slightly better Physical Exam 2 Vital Signs: Vital Signs: Last Vital Signs Temp 97.8 F 03/14/24 07:34 Pulse 82 03/14/24 07:34 Resp 16 03/14/24 07:34 BP 128/70 03/14/24 07:34 Pulse Ox 96 03/14/24 07:34 O2 Del Method Room Air 03/14/24 07:34 BMI result Body Mass Index 38.7 Const: Other: General: AO X 3, no acute distress, hard of hearting Resp: CTA bilateral CVS: S1,S2,RRR GI: +BS, NT, no distention Skin: No rash--see wound pic : no flank tenderness, lower back tenderness Neuro: motor grossly intact Psych: appropriate affect Objective Data Active Medications Acetaminophen (Acetaminophen 325 Mg Tablet) 650 mg PO Q6H PRN PRN Reason: Pain, Mild 1-3,fever,headache Last Admin: 03/12/24 07:15 Dose: 650 mg Documented By: MAISHA Calcium Carbonate (Calcium Carbonate 750 Mg Tab.Chew) 750 mg PO Q4H PRN PRN Reason: Heartburn Carvedilol (Carvedilol 12.5 Mg Tablet) 12.5 mg PO DAILY [facility]; Protocol Last Admin: 03/14/24 08:31 Dose: 12.5 mg Documented By: TERESA Ferrous Sulfate (Ferrous Sulfate 324 Mg Tablet.) 324 mg PO DAILY [facility] Last Admin: 03/14/24 08:31 Dose: 324 mg Documented By: TERESA Furosemide (Furosemide 40 Mg Tablet) 40 mg PO SUTUTHSA@0900 [facility]; Protocol Last Admin: 03/14/24 08:41 Dose: 40 mg Documented By: TERESA Furosemide (Furosemide 40 Mg Tablet) 80 mg PO MOWEFR@0900 [facility]; Protocol Last Admin: 03/12/24 08:06 Dose: 80 mg Documented By: JAYCE Glucose (Glucose Gel 15 Gm Gel..Gram.) 15 gm PO Q15M PRN; Protocol PRN Reason: per Hypoglycemia Standing Ord. Dextrose (D10) 250 mls @ 750 mls/hr IV Q15M PRN; Protocol PRN Reason: per Hypoglycemia Standing Ord. Last Infusion: 12/31/24 07:04 Dose: Infused Documented By: TERESA Cefazolin Sodium/Dextrose (Ancef) 2 gm in 50 mls @ 100 mls/hr IV Q8H [facility] Last Infusion: 03/14/24 05:08 Dose: Infused Documented By: AILEEN Insulin Human Lispro (Insulin Lispro 100 Unit/Ml 3 Ml Vial) 0 unit SUBCUT QIDACHS [facility]; Protocol Last Admin: 03/14/24 08:31 Dose: 2 unit Documented By: TERESA Lidocaine (Lidocaine 4 % Patch Adh..Patch) 1 patch TRANSDERMA DAILY [facility]; Protocol Last Admin: 03/14/24 08:32 Dose: 1 patch Documented By: TERESA Magnesium Hydroxide (Milk Of Magnesia 30 Ml Oral.Susp) 30 ml PO DAILY PRN PRN Reason: Constipation Last Admin: 03/11/24 09:16 Dose: 30 ml Documented By: JAYCE Melatonin (Melatonin 3 Mg Tablet) 6 mg PO BEDTIME PRN PRN Reason: Insomnia Metolazone (Metolazone 2.5 Mg Tablet) 2.5 mg PO SA@0900 [facility] Last Admin: 03/13/24 07:57 Dose: 2.5 mg Documented By: TERESA Morphine Sulfate (Morphine Sulfate 4 Mg/Ml Cartridge) 4 mg IVPUSH Q4H PRN; Protocol PRN Reason: Pain, Severe (Pain Scale 7-10) Last Admin: 03/13/24 04:41 Dose: 4 mg Documented By: AILEEN Multivitamins/Vitamin C (Multivitamin Tablet) 1 tab PO DAILY [facility] Last Admin: 03/14/24 08:31 Dose: 1 tab Documented By: TERESA Ondansetron HCl (Ondansetron Hcl 4 Mg/2 Ml Vial) 4 mg IVPUSH Q8H PRN PRN Reason: Nausea and Vomiting Oxycodone HCl (Oxycodone Hcl Immed Release 5 Mg Tablet) 10 mg PO Q4H PRN PRN Reason: Pain, Moderate(Pain Scale 4-6) Last Admin: 03/13/24 23:10 Dose: 10 mg Documented By: AILEEN Pravastatin Sodium (Pravastatin Sodium 80 Mg Tablet) 80 mg PO BEDTIME [facility] Last Admin: 03/13/24 20:43 Dose: 80 mg Documented By: AILEEN Sodium Chloride (0.9 % Sodium Chloride Flush 3 Ml Syringe) 3 ml IVFLUSH QSHIFT [facility] Last Admin: 03/14/24 08:31 Dose: 3 ml Documented By: TERESA Tamsulosin HCl (Tamsulosin Hcl 0.4 Mg Capsule) 0.4 mg PO DAILY@1700 [facility] Last Admin: 03/13/24 18:08 Dose: 0.4 mg Documented By: TERESA Vitamin D (Cholecalciferol (Vitamin D3) 25 Mcg Tablet) 50 mcg PO DAILY@1600 [facility] Last Admin: 03/13/24 15:18 Dose: 50 mcg Documented By: TERESA Warfarin Sodium (Warfarin Sodium 6 Mg Tablet) 6 mg PO DAILY@1800 [facility] Last Admin: 03/13/24 18:09 Dose: 6 mg Documented By: TERESA Labs 03/10/24 05:38 03/12/24 08:51 Labs: Laboratory Results - last 24 hr 03/13/24 03/13/24 03/13/24 11:19 16:14 20:13 Hold Purple Top PT INR POC Glucose 241 H 207 H 242 H 03/14/24 03/14/24 05:58 07:37 Hold Purple Top SEE NOTE PT 33.8 H INR 2.9 H POC Glucose 172 H Assessment and Plan (1) Acute pyelonephritis: Status: Acute Plan 74-year-old male who presents to the ED with complaints of low back pain x 3 days; workup negative for acute fracture. Also complained of dysuric symptoms originally treated as an outpatient without documented urine; urine in ER with active sediment and CT consistent with left pyelonephritis Acute left pyelonephritis -ceftriaxone started 03/07, culture growing Klebsiela now on Kefzol -morphine/oxycodone for pain Staph Aurues--bacteremia, 03/11 -repeat culture 03/09 no growth -ID recommends Kefzol started 03/09 for 6 week -echocardiogram 03/09, vegetation cannot be ruled out but was poor study -will need picc line for 4 to 6 weeks of iv Abx Back pain, ? related to fall -unable to do MRI d/t cochlear implant -lumbar spine CT : 1. No acute fracture in the lumbar spine. 2. Advanced degenerative changes most prominent at L3-4. -adjust pain meds, lidocaine patch Persistent atrial fibrillation -acceptable rate control on current therapies -warfarin at outpatient doses to keep INR between 2 and 3, continue coumadin Hypertension -acceptable control on current therapies Type 2 diabetes, hypoglycemia -diabetic diet -lispro correctional scale -resume metformin, hold glipizide Right heel chronic wound see pic, wound care consult -CT, no osteo Constipation--add enema, miralax Full code Coumadin Patient will require at least 2 midnights going forward of inpatient hospitalization for IV antibiotics to treat acute left pyelonephritis. This can not be achieved a lesser acute setting Plan discussed with patient and at the bedside anticipate discharge tomorrow Quality Stroke Does the patient have a stroke diagnosis?: No VTE Prior VTE?: No VTE Risk Level:: Medical - moderate - high VTE Device Contraindication: Treatment Not Indicated VTE Drug Contraindication: N/A - Med Ordered
[2024-03-14 11:31] LABS: Glucose, Whole Blood 270 mg/dL (60-115)
[2024-03-14 15:30] VITALS: BP 136/68; PULSE 88; RESP 18; TEMP 36.4; O2SAT 95
[2024-03-14 16:12] LABS: Glucose, Whole Blood 276 mg/dL (60-115)
[2024-03-14] MEDS: Tamsulosin HCL 0.4 MG CAPSULE PO (16:47)
[2024-03-14] MEDS: Cholecalciferol (Vitamin D3) 25 MCG TABLET 50 MCG PO (16:47)
[2024-03-14] MEDS: oxyCODONE HCl Immed Release 5 MG TABLET 10 MG PO ×2 (16:49→22:54)
[2024-03-14] MEDS: Warfarin Sodium 6 MG TABLET PO (18:02)
[2024-03-14 19:09] VITALS: BP 122/69; PULSE 79; RESP 18; TEMP 36.3; O2SAT 97
[2024-03-14 20:17] LABS: Glucose, Whole Blood 286 mg/dL (60-115)
[2024-03-14] MEDS: Pravastatin Sodium 80 MG TABLET PO (20:27)
[2024-03-14 23:54] VITALS: RESP 18
[2024-03-15] MEDS: oxyCODONE HCl Immed Release 5 MG TABLET 10 MG PO ×4 (03:16→19:18)
[2024-03-15 03:26] VITALS: BP 126/80; PULSE 86; RESP 16; TEMP 36.5; O2SAT 97
[2024-03-15] MEDS: ceFAZolin Sodium/Dextrose,Iso 2 GM/50 ML PIGGYBACK IV ×2 (04:43→12:11)
[2024-03-15 06:16] LABS: INTERNATIONAL NORM RATIO 2.8 (0.9-1.1); Prothrombin Time 32.3 SEC (10.9-12.4)
[2024-03-15 07:19] VITALS: BP 129/71; PULSE 78; RESP 16; TEMP 36.1; O2SAT 98
[2024-03-15 07:30] LABS: Glucose, Whole Blood 186 mg/dL (60-115)
[2024-03-15] MEDS: Insulin Lispro 100 UNIT/ML 3 ML VIAL SUBCUT ×4 (07:42→21:13)
[2024-03-15] MEDS: 0.9 % Sodium Chloride Flush 3 ML SYRINGE IVFLUSH ×2 (07:43→16:26)
[2024-03-15] MEDS: Furosemide 40 MG TABLET 80 MG PO (08:27)
[2024-03-15] MEDS: Ferrous Sulfate 324 MG TABLET.DR PO (08:27)
[2024-03-15] MEDS: Multivitamin TABLET 1 TAB PO (08:27)
[2024-03-15] MEDS: Lidocaine 4 % Patch ADH..PATCH 1 PATCH TRANSDERMA (08:27)
[2024-03-15] MEDS: carvediloL 12.5 MG TABLET PO (08:27)
--- NOTE | 2024-03-15 09:25 | HO.PM.IMPN ---
Subjective Subjective Date of Service: 03/15/24 Interval History: no new issues, back pain is better, especially while sitting the chair yesterday, no change in neuro status Physical Exam Vital Signs: Vital Signs: Last Vital Signs Temp 97.0 F 03/15/24 07:19 Pulse 78 03/15/24 07:19 Resp 16 03/15/24 07:19 BP 129/71 03/15/24 07:19 Pulse Ox 98 03/15/24 07:19 O2 Del Method Room Air 03/15/24 07:19 BMI result Body Mass Index 38.7 Const: Other: General: AO X 3, no acute distress, hard of hearting Resp: CTA bilateral CVS: S1,S2,RRR GI: +BS, NT, no distention Skin: No rash--see wound pic : no flank tenderness, lower back tenderness Neuro: motor grossly intact Psych: appropriate affect Skin: Other: Right foot, with chronic ulceration noted to midfoot. No surrounding erythema or warmth. No drainage. >>see extremity physical exam for more details. Objective Data Active Medications Acetaminophen (Acetaminophen 325 Mg Tablet) 650 mg PO Q6H PRN PRN Reason: Pain, Mild 1-3,fever,headache Last Admin: 03/12/24 07:15 Dose: 650 mg Documented By: MAISHA Calcium Carbonate (Calcium Carbonate 750 Mg Tab.Chew) 750 mg PO Q4H PRN PRN Reason: Heartburn Carvedilol (Carvedilol 12.5 Mg Tablet) 12.5 mg PO DAILY [facility]; Protocol Last Admin: 03/15/24 08:27 Dose: 12.5 mg Documented By: JAYCE Ferrous Sulfate (Ferrous Sulfate 324 Mg Tablet.) 324 mg PO DAILY [facility] Last Admin: 03/15/24 08:27 Dose: 324 mg Documented By: JAYCE Furosemide (Furosemide 40 Mg Tablet) 40 mg PO SUTUTHSA@0900 [facility]; Protocol Last Admin: 03/14/24 08:41 Dose: 40 mg Documented By: TERESA Furosemide (Furosemide 40 Mg Tablet) 80 mg PO MOWEFR@0900 [facility]; Protocol Last Admin: 03/15/24 08:27 Dose: 80 mg Documented By: JAYCE Glucose (Glucose Gel 15 Gm Gel..Gram.) 15 gm PO Q15M PRN; Protocol PRN Reason: per Hypoglycemia Standing Ord. Dextrose (D10) 250 mls @ 750 mls/hr IV Q15M PRN; Protocol PRN Reason: per Hypoglycemia Standing Ord. Last Infusion: 03/09/24 07:04 Dose: Infused Documented By: TERESA Cefazolin Sodium/Dextrose (Ancef) 2 gm in 50 mls @ 100 mls/hr IV Q8H [facility] Last Infusion: 03/15/24 05:15 Dose: Infused Documented By: AYAKA Insulin Human Lispro (Insulin Lispro 100 Unit/Ml 3 Ml Vial) 0 unit SUBCUT QIDACHS [facility]; Protocol Last Admin: 03/15/24 07:42 Dose: 2 unit Documented By: JAYCE Lidocaine (Lidocaine 4 % Patch Adh..Patch) 1 patch TRANSDERMA DAILY [facility]; Protocol Last Admin: 03/15/24 08:27 Dose: 1 patch Documented By: JAYCE Magnesium Hydroxide (Milk Of Magnesia 30 Ml Oral.Susp) 30 ml PO DAILY PRN PRN Reason: Constipation Last Admin: 03/11/24 09:16 Dose: 30 ml Documented By: JAYCE Melatonin (Melatonin 3 Mg Tablet) 6 mg PO BEDTIME PRN PRN Reason: Insomnia Metolazone (Metolazone 2.5 Mg Tablet) 2.5 mg PO SA@0900 [facility] Last Admin: 03/13/24 07:57 Dose: 2.5 mg Documented By: TERESA Morphine Sulfate (Morphine Sulfate 4 Mg/Ml Cartridge) 4 mg IVPUSH Q4H PRN; Protocol PRN Reason: Pain, Severe (Pain Scale 7-10) Last Admin: 03/13/24 04:41 Dose: 4 mg Documented By: AILEEN Multivitamins/Vitamin C (Multivitamin Tablet) 1 tab PO DAILY [facility] Last Admin: 03/15/24 08:27 Dose: 1 tab Documented By: JAYCE Ondansetron HCl (Ondansetron Hcl 4 Mg/2 Ml Vial) 4 mg IVPUSH Q8H PRN PRN Reason: Nausea and Vomiting Oxycodone HCl (Oxycodone Hcl Immed Release 5 Mg Tablet) 10 mg PO Q4H PRN PRN Reason: Pain, Moderate(Pain Scale 4-6) Last Admin: 03/15/24 07:43 Dose: 10 mg Documented By: JAYCE Pravastatin Sodium (Pravastatin Sodium 80 Mg Tablet) 80 mg PO BEDTIME [facility] Last Admin: 03/14/24 20:27 Dose: 80 mg Documented By: AYAKA Sodium Chloride (0.9 % Sodium Chloride Flush 3 Ml Syringe) 3 ml IVFLUSH QSHIFT [facility] Last Admin: 03/15/24 07:43 Dose: 3 ml Documented By: JAYCE Tamsulosin HCl (Tamsulosin Hcl 0.4 Mg Capsule) 0.4 mg PO DAILY@1700 [facility] Last Admin: 03/14/24 16:47 Dose: 0.4 mg Documented By: TERESA Vitamin D (Cholecalciferol (Vitamin D3) 25 Mcg Tablet) 50 mcg PO DAILY@1600 [facility] Last Admin: 03/14/24 16:47 Dose: 50 mcg Documented By: TERESA Warfarin Sodium (Warfarin Sodium 6 Mg Tablet) 6 mg PO DAILY@1800 [facility] Last Admin: 03/14/24 18:02 Dose: 6 mg Documented By: TERESA Labs 03/10/24 05:38 03/12/24 08:51 Labs: Laboratory Results - last 24 hr 03/14/24 03/14/24 03/14/24 11:25 16:08 20:14 PT INR POC Glucose 270 H 276 H 286 H 03/15/24 03/15/24 05:45 07:25 PT 32.3 H INR 2.8 H POC Glucose 186 H Microbiology Microbiology Results: Microbiology 03/09/24 08:28 Blood Culture - Final Blood - Venous No growth after 5 days. 03/09/24 08:28 Blood Culture - Final Blood - Venous No growth after 5 days. Assessment and Plan (1) Acute pyelonephritis: Status: Acute Plan 74-year-old male who presents to the ED with complaints of low back pain x 3 days; workup negative for acute fracture. Also complained of dysuric symptoms originally treated as an outpatient without documented urine; urine in ER with active sediment and CT consistent with left pyelonephritis Acute left pyelonephritis -ceftriaxone started 03/07, culture growing Klebsiela now on Kefzol to also cover staph -morphine/oxycodone for pain Staph Aurues--bacteremia, 1 -repeat culture 03/09 no growth -ID recommends Kefzol started 03/09 for 6 week -echocardiogram 03/09, vegetation cannot be ruled out but was poor study -will need picc line for Abx Back pain, ? related to fall -unable to do MRI d/t cochlear implant -lumbar spine CT : 1. No acute fracture in the lumbar spine. 2. Advanced degenerative changes most prominent at L3-4. -adjust pain meds, lidocaine patch -symptomatic treatement oxycodone, morphine, lidocaine path Persistent atrial fibrillation -acceptable rate control on current therapies -warfarin, INR goal 2 to 3 Hypertension -acceptable control on current therapies Type 2 diabetes, hypoglycemia -diabetic diet -lispro correctional scale -resume metformin, hold glipizide Right heel chronic wound see pic, wound care consult -CT, no osteo Constipation--enema as needed, miralax. mom Full code Coumadin anticipated dc when rehab bed available. Quality Stroke Does the patient have a stroke diagnosis?: No VTE Prior VTE?: No VTE Risk Level:: Medical - moderate - high VTE Device Contraindication: Treatment Not Indicated VTE Drug Contraindication: N/A - Med Ordered
--- NOTE | 2024-03-15 11:03 | HO.PICC ---
PICC Line Insertion NPICC Diagnosis: Bactermia Indication: Halfway antibiotics Pertinent Labs: Reviewed Technique: Following informed consent including risks, benefits and alternatives and using sterile technique including cap and mask, sterile gown, glove and drape, the right arm was prepped and draped in the usual sterile fashion of full barrier technique with CHG. Following completion of [place] Protocol the skin and soft tissues were anesthetized with 1% Lidocaine plain. Using ultrasound guidance, the right basilic vein access was obtained in a single attempt by this RN. Over an 0.018 wire through peel-away sheath, a Single lumen PASV PICC line was positioned. Catheter length is 42 cm internal length, the external length is at the 0 cm external sally for a total trimmed length of 42 cm. The procedure was performed in S272. Tip verification will be done by Chest Xray which was taken. Ultrasound was used to document vein patency and for needle entry. A formal ultrasound picture was recorded. [employer] has released the line for use and it is currently dressed with a StatLock, Tegaderm, and CHG disc. Verification has been performed for blood return and line patency. Fran Gavin RN informed. Arm Circumference: 36.5 cm Equipment: Catheter Type: BARD PowerPICC SOLO Catheter with Sherlock 3CG Tip Lot #: [id number]
[2024-03-15 11:30] LABS: Glucose, Whole Blood 211 mg/dL (60-115)
[2024-03-15 15:27] VITALS: BP 145/88; PULSE 81; RESP 18; TEMP 36.1; O2SAT 94
[2024-03-15 16:09] LABS: Glucose, Whole Blood 192 mg/dL (60-115)
[2024-03-15] MEDS: Cholecalciferol (Vitamin D3) 25 MCG TABLET 50 MCG PO (16:25)
[2024-03-15] MEDS: Tamsulosin HCL 0.4 MG CAPSULE PO (16:25)
[2024-03-15] MEDS: Warfarin Sodium 6 MG TABLET PO (17:26)
[2024-03-15] MEDS: Pravastatin Sodium 80 MG TABLET PO (19:18)
[2024-03-15 19:46] VITALS: BP 110/68; PULSE 77; RESP 18; TEMP 36.8; O2SAT 94
[2024-03-15 20:56] LABS: Glucose, Whole Blood 290 mg/dL (60-115)
[2024-03-15] MEDS: Heparin Sodium,Porcine Flush 50 UNITS/5 ML SYRINGE IVFLUSH (23:09)
[2024-03-16] MEDS: oxyCODONE HCl Immed Release 5 MG TABLET 10 MG PO ×2 (00:53→07:59)
[2024-03-16 02:59] VITALS: BP 110/66; PULSE 61; RESP 18; TEMP 36; O2SAT 93
[2024-03-16] MEDS: ceFAZolin Sodium/Dextrose,Iso 2 GM/50 ML PIGGYBACK IV (05:44)
[2024-03-16 06:11] LABS: INTERNATIONAL NORM RATIO 2.5 (0.9-1.1); Prothrombin Time 29.4 SEC (10.9-12.4)
[2024-03-16 07:09] VITALS: BP 113/80; PULSE 75; RESP 16; TEMP 36.6; O2SAT 94
[2024-03-16 07:27] LABS: Glucose, Whole Blood 158 mg/dL (60-115)
[2024-03-16] MEDS: Insulin Lispro 100 UNIT/ML 3 ML VIAL SUBCUT (07:50)
[2024-03-16] MEDS: Ferrous Sulfate 324 MG TABLET.DR PO (07:50)
[2024-03-16] MEDS: Multivitamin TABLET 1 TAB PO (07:50)
[2024-03-16] MEDS: carvediloL 12.5 MG TABLET PO (07:50)
[2024-03-16] MEDS: Furosemide 40 MG TABLET PO (07:50)
[2024-03-16] MEDS: Heparin Sodium,Porcine Flush 50 UNITS/5 ML SYRINGE IVFLUSH (07:51)
[2024-03-16] MEDS: Lidocaine 4 % Patch ADH..PATCH 1 PATCH TRANSDERMA (08:00)
--- NOTE | 2024-03-16 08:23 | PM.DS ---
DS: Providers Provider Date of Service: 03/16/24 Date of admission: 03/07/24 15:04 Date of discharge: 03/16/24 Primary care physician: Darien Bruner MD Consults: 03/07/24 22:01 Consult to Wound Care Routine Reason for consultation: ?Diabetic foot ulcer right plantar foot. Need treatment recommendations Has provider been notified: Yes 03/09/24 10:29 Consult to Infectious Diseases Routine Consulting Provider: [facility] Reason for consultation: bacteremia Has provider been notified: No DS: Diagnosis Discharge Diagnosis (1) Acute pyelonephritis: Status: Acute DS: Summary Hospital Course Hospital Course: Admission HPI Chief Complaint: Back pain [id number]-male, with a hx of PVCs, JUDIE, heart failure, diabetes, hypertension, obesity, atrial fibrillation on Coumadin, who presents to the ED with complaints of low back pain x 3 days. Patient reports that about a week and a half ago he slipped on a stalk and slowly lowered himself to the ground, and fell onto his buttocks. He did not have pain at that time. He denies hitting his head or LOC. He states that 3 days ago he felt as though he slept wrong, and has had low back pain. He was seen on March 04 due to frequent urination, and only urinating a few drops which started 3 days prior to visit. He was started on Macrobid but was unable to provide a urine sample at that time. He has been taking this antibiotic as prescribed, last dose was this morning. He also states that he has been followed by wound care for a chronic right foot ulcer. He was started on doxycycline several days ago which he has been taking as prescribed. He denies any recent fevers, chills, abdominal pain. He did have a umbilical hernia surgery 2 days ago. He denies any chest pain or shortness for breath. Pain in his back worsens with movement. He has been taking oxycodone for his pain however states that his pain has only progressed. He denies any urinary retention or incontinence. No saddle anesthesia. In ER urine with active sediment. CT scan with perinephric stranding about the left kidney. CT of cervical spine/head negative for acute fracture. X-rays the same. Patient will be admitted for pyelonephritis Hospital coures: A 74-year-old male presented to the ED with complaints of low back pain for 3 days; workup was negative for acute fracture. He also reported dysuric symptoms that were initially treated as an outpatient without a documented urine culture. Urinalysis in the ED showed active sediment, and a CT scan was consistent with left pyelonephritis. He was started on IV ceftriaxone, and urine culture grew Klebsiella pneumoniae. The patient was also found to have MSSA bacteremia (1/2 sets of blood cultures positive), with repeat cultures subsequently negative. Given his back pain, there was concern for a spinal infection, prompting a CT scan, which showed no evidence of a spinal abscess or diskitis. MRI was considered; however, the patient has a cochlear implant that precludes MRI. He has no neurological symptoms related to his back pain. It is worth noting that the patient had a fall prior to admission, and a CT scan suggested degenerative disease as the probable cause of his pain. The patient was evaluated by Infectious Disease (ID), who recommended IV Kefzol (cefazolin) for MSSA bacteremia. An echocardiogram showed no vegetations, and repeat blood cultures remained negative. ID recommends 6 weeks of IV Kefzol, which would also cover the UTI/pyelonephritis. The patient was seen by physical therapy and offered rehab, but he and his declined, preferring to go home with home infusion therapy for antibiotics. I had a lengthy discussion with the patient and his , explaining that going home increases the likelihood of readmission given his limited function due to back pain. Problems: Acute left pyelonephritis -ceftriaxone started 03/07, culture growing Klebsiela now on Kefzol to also cover staph Staph Aurues--bacteremia, 03/11, -repeat culture 03/09 no growth -ID recommends Kefzol started 03/09 for 6 week ending Apr 20 -echocardiogram 03/09, no vegetation. Back pain, ? related to fall -unable to do MRI d/t cochlear implant -lumbar spine CT : 1. No acute fracture in the lumbar spine. 2. Advanced degenerative changes most prominent at L3-4. -adjust pain meds, lidocaine patch -symptomatic treatement oxycodone, lidocaine path Persistent atrial fibrillation -continue INR as before and coumadin clinic as before Hypertension--continue home meds Type 2 diabetes, resume home regimen Right heel chronic --CT no osteo Constipation-- bowel regimen, colace, miralax, MoM Dispo: home with VNA Time Attestation Discharge Coordination Time (in mins): 45 Quality: Safe Use of Opioids Does Pt have an Active Cancer Diagnosis on the Problem List?: No Quality: Stroke Does the patient have a stroke diagnosis?: No Physical Exam Vital Signs: Vital Signs: Last Vital Signs Temp 97.8 F 03/16/24 07:09 Pulse 75 03/16/24 07:09 Resp 16 03/16/24 07:09 BP 113/80 03/16/24 07:09 Pulse Ox 94 03/16/24 07:09 O2 Del Method Room Air 03/16/24 07:09 BMI result Body Mass Index 38.7 DS: Data Data Completed and Pending Completed studies during hospitalization [Text1]: Procedures Excision of Right Foot Skin, External Approach (09/06/23) Replacement of Left Knee Joint with Synthetic Substitute, Uncemented, Open Approach (01/03/20) Labs on day of discharge: Laboratory Results - last 24 hr 03/15/24 03/15/24 03/15/24 11:25 16:06 20:53 PT INR POC Glucose 211 H 192 H 290 H 03/16/24 03/16/24 05:52 07:15 PT 29.4 H INR 2.5 H POC Glucose 158 H Discharge Plan Discharge Anticipated Discharge Date/Time: 03/16/24 08:24 Patient Disposition: Home Health Service Discharge Diagnosis: Acute UTI/pyelonephritis, MSSA bacteremia, back pain Referrals: Darien Bruner MD [Primary Care Provider] - 1 Week Discharge Medications: New oxycodone 10 mg tablet 10 mg PO Q6H PRN (Reason: pain (scale score 7-10)) Qty: 20 0RF Rx Instructions: Partial Fill upon patient request. magnesium hydroxide [Milk of Magnesia] 400 mg/5 mL Suspension 30 ml PO DAILY PRN (Reason: Constipation) Qty: 3000 0RF polyethylene glycol 3350 [Miralax] 17 gram powder in packet 17 g PO DAILY PRN (Reason: constipation) Qty: 30 0RF Continued pravastatin 80 mg tablet 80 mg PO BEDTIME tamsulosin 0.4 mg capsule 0.4 mg PO DAILY@1700 furosemide 40 mg tablet 40 mg PO SUTUTHSA@0900 carvedilol 12.5 mg tablet 12.5 mg PO DAILY glipizide 5 mg tablet extended release 24hr 10 mg PO BID metolazone 2.5 mg tablet 2.5 mg PO SA@0900 metformin 500 mg tablet extended release 24 hr 500 mg PO DAILY@1400 warfarin 2 mg tablet 6 mg PO DAILY@1800 Protocol: Dose Management Condition: Friday (Week One) Dose/Route: 6 mg Instruction: 1 x 2 mg tablet, 1 x 4 mg tablet Condition: Friday Dose/Route: 6 mg Instruction: 1 x 2 mg tablet, 1 x 4 mg tablet Condition: Friday Dose/Route: 6 mg Instruction: 1 x 2 mg tablet, 1 x 4 mg tablet Condition: Friday Dose/Route: 6 mg Instruction: 1 x 2 mg tablet, 1 x 4 mg tablet Condition: Dose/Route: 6 mg Instruction: 1 x 2 mg tablet, 1 x 4 mg tablet Condition: Friday Dose/Route: 8 mg Instruction: 2 x 4 mg tablets Condition: Friday Dose/Route: 6 mg Instruction: 1 x 2 mg tablet, 1 x 4 mg tablet Condition: Friday (Week Two) Dose/Route: 6 mg Instruction: 1 x 2 mg tablet, 1 x 4 mg tablet Condition: Friday Dose/Route: 6 mg Instruction: 1 x 2 mg tablet, 1 x 4 mg tablet Condition: Friday Dose/Route: 6 mg Instruction: 1 x 2 mg tablet, 1 x 4 mg tablet Condition: Friday Dose/Route: 6 mg Instruction: 1 x 2 mg tablet, 1 x 4 mg tablet Condition: Dose/Route: 6 mg Instruction: 1 x 2 mg tablet, 1 x 4 mg tablet Condition: Friday Dose/Route: 6 mg Instruction: 1 x 2 mg tablet, 1 x 4 mg tablet Condition: Friday Dose/Route: 6 mg Instruction: 1 x 2 mg tablet, 1 x 4 mg tablet Protocol Text: Adjustment Start Date: Friday03/05/24 INR Value: 1.9 INR Date: 03/05/24 Recheck Date: 03/12/24 Additional Instructions: INR is below range increase dose today to 8mg then resume usual 6mg daily no greens x 2 more days, reds to raise Rx Instructions: 6MGX7 furosemide 80 mg Tablet 80 mg PO MOWEFR@0900 metformin 500 mg tablet extended release 24 hr 1,000 mg PO DAILY ferrous sulfate [iron] 325 mg (65 mg iron) Tablet 325 mg PO DAILY oxycodone-acetaminophen 5-325 mg tablet 1 tab PO 5XD PRN (Reason: Pain) cholecalciferol (vitamin D3) 25 mcg (1,000 unit) capsule 50 mcg PO DAILY@1600 [id number] Tablet 1 tab PO DAILY (DME) blood sugar diagnostic Strip See Rx Instructions .ROUTE .MEDSUPPLY Qty: 10 Rx Instructions: As directed (DME) pen needle, diabetic 31 gauge x 3/16 needle See Rx Instructions subcut .MEDSUPPLY Qty: 50 Rx Instructions: As directed Discontinued doxycycline hyclate 100 mg capsule 100 mg PO BID Rx Instructions: END DATE: 03/13/24 nitrofurantoin monohyd/m-cryst 100 mg capsule 1 cap PO Q12H Rx Instructions: END DATE: 03/09/24 Discharge Orders: Discharge Order (Routine); Ordered 03/16/24 Ordered By: Karlo Shaver Diet: Diabetic diet Activity on Discharge: As tolerated Stand Alone Forms: Patient Portal Discharge page Print Language: Greenlandic Care Plan Goals: Recovery from back pain and bacteremia. Health Concerns: Bacteremia UTI Plan of Treatment: To complete a 6 week course of Kefzol 2 g every 8 hours and then 04/20/2024. Follow-up with PCP in a week And follow-up with Infectious Disease within 2-3 weeks. Assessment: See above
--- NOTE | 2024-03-16 09:25 | MHC.CM.PN ---
IMM 03/16/24 Patient is discharged to home with IV ABX. [facility] will provide home services and supplies. Patient's will provide transportation home.
--- NOTE | 2024-03-16 09:43 | W.MHC.F2F ---
Service Date Service Date: 03/16/24 Encounter Date of encounter: 03/16/24 Reasons for Services Signs and symptoms assessed: sepsis, back pain, limitted mobility Reason for intermediate: administration of IV, SQ, or IM injection and medication management Homebound: Leaving the home is medically contraindicated at this time without the asist of a device and/or another person due th the listed conditions above and below. Reason homebound: pain with ambulation and weakness related to hospital stay Homebound supporting statement: Homebound due to pain in the back causing pain with ambulation, weakness from hospitalization and therefore needs the assistance of another person Certification: Based on the above findings, I certify that this patient is confined to the home and needs intermittent intermediate care, physical therapy and/or speech therapy, or continues to need occupational therapy. The patient is under my care, and I have initiated the establishment of the plan of care. The patient will be followed by a physician who will periodically review the plan of care. Time Spent With Patient Time: Total time managing care of this patient today ____ minutes.
== END 2024-03-16 10:34 | disposition home health service (06) | DRG 690 ==
LOC: HO.ED 13:14 → HO.EDOVER 15:16 → HO.S3 19:47
PROVIDERS: Physician Assistant Medical; Admitting Provider Hospitalist; Emergency Provider Emergency Medicine; PCP Internal Medicine; Visit Provider Internal Medicine
DX: N10 Acute pyelonephritis (principal); I48.19 Other persistent atrial fibrillation; R78.81 Bacteremia; L97.411 Non-pressure chronic ulcer of right heel and midfoot limited to breakdown of skin; I50.42 Chronic combined systolic (congestive) and diastolic (congestive) heart failure; I11.0 Hypertensive heart disease with heart failure; E11.621 Type 2 diabetes mellitus with foot ulcer; K59.00 Constipation, unspecified; B95.61 Methicillin susceptible Staphylococcus aureus infection as the cause of diseases classified elsewhere; B96.1 Klebsiella pneumoniae [K. pneumoniae] as the cause of diseases classified elsewhere; E11.649 Type 2 diabetes mellitus with hypoglycemia without coma; Z96.21 Cochlear implant status; Z87.891 Personal history of nicotine dependence; Z79.01 Long term (current) use of anticoagulants; Z79.84 Long term (current) use of oral hypoglycemic drugs; Z79.899 Other long term (current) drug therapy
CPT/HCPCS: 36415; 36573; 70450; 71045; 72125; 72131; 72220; 73630; 73701; 74176; 80048; 80053; 80202; 81001; 82947; 83605; 83735; 85025; 85610; 85730; 87040; 87077; 87086; 87088; 87186; 87205; 93005; 93306; 97116; 97162; 97530; 99211; 99212; 99285; C1751; J0690; J0696; J1171; J1642; J2270; J3370; Q9967

== ENCOUNTER → 2024-03-07 06:10 | Outpatient (BNV) | payer MEDICARE, SELFPAY | PROVIDERS: Emergency Provider Emergency Medicine; PCP Internal Medicine; Visit Provider Radiology Diagnostic Radiology | DX: Z03.89 Encounter for observation for other suspected diseases and conditions ruled out (principal); M79.671 Pain in right foot | CPT/HCPCS: 73630 ==

== ENCOUNTER → 2024-03-07 13:10 | Outpatient (BNV) | payer MEDICARE, SELFPAY | PROVIDERS: Admitting Provider Hospitalist; Emergency Provider Emergency Medicine; PCP Internal Medicine; Visit Provider Internal Medicine Cardiovascular Disease | DX: R94.31 Abnormal electrocardiogram [ECG] [EKG] (principal) | CPT/HCPCS: 93010 ==

== ENCOUNTER 2024-03-07 15:04 | Outpatient (BNV) | payer MEDICARE, SELFPAY | END 2024-03-08 16:00 | PROVIDERS: Admitting Provider Hospitalist; Emergency Provider Emergency Medicine; PCP Internal Medicine; Visit Provider Internal Medicine Cardiovascular Disease | DX: I36.1 Nonrheumatic tricuspid (valve) insufficiency (principal); I34.81 Nonrheumatic mitral (valve) annulus calcification; R78.81 Bacteremia | CPT/HCPCS: 93306 ==

== ENCOUNTER 2024-03-07 15:04 | Outpatient (BNV) | payer MEDICARE, SELFPAY | END 2024-03-09 16:32 | PROVIDERS: Admitting Provider Hospitalist; Emergency Provider Emergency Medicine; PCP Internal Medicine; Visit Provider Radiology Diagnostic Radiology | DX: L97.519 Non-pressure chronic ulcer of other part of right foot with unspecified severity (principal); M54.9 Dorsalgia, unspecified | CPT/HCPCS: 72131; 73701 ==

== ENCOUNTER 2024-03-07 15:04 | Outpatient (BNV) | payer MEDICARE, SELFPAY | END 2024-03-15 10:45 | PROVIDERS: Admitting Provider Hospitalist; Emergency Provider Emergency Medicine; PCP Internal Medicine; Visit Provider Radiology Diagnostic Radiology | DX: Z95.9 Presence of cardiac and vascular implant and graft, unspecified (principal) | CPT/HCPCS: 71045 ==

== ENCOUNTER → 2024-03-07 15:04 | Outpatient (BNV) | payer MEDICARE, SELFPAY | PROVIDERS: Admitting Provider Hospitalist; Emergency Provider Emergency Medicine; PCP Internal Medicine; Visit Provider Hospitalist | DX: N10 Acute pyelonephritis (principal); I48.19 Other persistent atrial fibrillation; I10 Essential (primary) hypertension; E11.8 Type 2 diabetes mellitus with unspecified complications | CPT/HCPCS: 99223; 99232 ==

== ENCOUNTER → 2024-03-07 15:04 | Outpatient (BNV) | payer MEDICARE, SELFPAY | PROVIDERS: Admitting Provider Hospitalist; Emergency Provider Emergency Medicine; PCP Internal Medicine; Visit Provider Internal Medicine | DX: N10 Acute pyelonephritis (principal); E11.621 Type 2 diabetes mellitus with foot ulcer; L97.411 Non-pressure chronic ulcer of right heel and midfoot limited to breakdown of skin; R78.81 Bacteremia; B95.61 Methicillin susceptible Staphylococcus aureus infection as the cause of diseases classified elsewhere | CPT/HCPCS: 99222 ==

== ENCOUNTER → 2024-03-17 09:56 | Outpatient (BNVA) | payer MEDICARE, SELFPAY | PROVIDERS: PCP Internal Medicine; Visit Provider Internal Medicine ==

== ENCOUNTER → 2024-03-19 12:47 | Outpatient (BNVA) | payer MEDICARE, SELFPAY | PROVIDERS: PCP Internal Medicine; Visit Provider Internal Medicine ==

== ENCOUNTER 2024-04-01 09:20 | Outpatient (REF) | payer MEDICARE, SELFPAY ==
--- OUTSIDE RECORDS SUMMARY | 2024-04-01 11:33 | XMS_ITS | Data Portability ---
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 Role Phone EMMA THOMAS Primary Care Provider [phone] Assessment Encounter Date Assessment Date Assessment LastModified [...] Gastroeso phageal reflux disease without esophagit is [id number] Active 2014 Gastro-eso phageal reflux disease without esophagiti s; Note: Date Diagnosed: 01/16/2015 10:07 AM (K21.9) Not Available [facility] 4 02:31:43 Sensorine ural hearing loss of bilateral ears 214089107 Active 2013 SNHL Bilaterall y; CMS Risk: low risk Note: Date Diagnosed: 12/10/2013 9:18 AM (389.18) Not Available [facility] 4 02:31:47 Deviated nasal septum 853018113 Active 2014 Septal Deviation; Note: Date Diagnosed: 08/05/2014 11:13 AM (470) ; Start Date : 08/05/2014 Deviated nasal septum; Note: Date Diagnosed: 01/16/2015 9:52 AM (J34.2) Not Available [facility] 4 02:31:48 Bilateral sensory hearing loss 750904016 Active 2013 Hearing loss: Sensory hearing loss, bilateral; Location: left Note: Date Diagnosed: 12/16/2013 11:26 AM (389.11) Not Available [facility] 4 02:31:45 Simple obesity 992946203 Active 2016 Other obesity due to excess calories; Note: Date Diagnosed: 10/09/2016 1:21 PM (E66.09) Not Available [facility] 4 02:31:33 Postopera tive follow-up visit Active 2013 Post op; Note: Date Diagnosed: 12/16/2013 11:26 AM (V67.00) Not Available [facility] 4 02:31:42 Hypertrop hy of nasal turbinate s 87594397 Active 2014 Nasal turbinate hypertroph y; Note: Date Diagnosed: 02/16/2014 12:31 PM (478.0) ; Start Date : 02/16/2014 Hypertrop hy of nasal turbinates ; Note: Date Diagnosed: 01/16/2015 9:52 AM (J34.3) Not Available [facility] 4 02:31:37 Obstructi ve sleep apnea syndrome 61146698 Active 2015 Obstructiv e sleep apnea (adult) (pediatric ); Note: Date Diagnosed: 05/04/2015 4:55 PM (G47.33) Not Available [facility] 4 02:31:48 Allergic rhinitis caused by pollen 68330983 Active 2013 Vasomotor rhinitis; Note: Date Diagnosed: 01/10/2014 2:23 PM (477.0) Not Available [facility] 4 02:31:46 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 Procedures Surgical History None recorded. Imaging Results Imaging Date Name Status LastModified by [facility] Details LastModified Time 04/27/2021 imaging/diag nostic result completed Information not available 10/28/2023 21:36:47 06/01/2021 imaging/diag nostic result completed Information not available 10/28/2023 21:37:06 Procedure Notes None recorded. Medical Equipment None Reported. Allergies Allergen ID Allergen Name Allergen Category Reaction Reaction Severity Criticality Documentation Date Start Date Code Code System Note Provider Name and Address Organization Details Recorded Time 68014 Product containin g penicilli n and antibioti c (product) medicatio n other Not available Not available 07/22/2023 67024 05 SNOMED React ion: Unkno wn; Not Available [facility] 4 00:23:22 Medications Name Sig Start Date Stop Date Status Note LastModified by Organization Details LastModified Time furosemid e 40 mg tablet active Medicati on ID: [id number] B rand Name: furosemi de Send Method: E-Prescr ibed Sub s Allowed: subs OK Medic ationGen ericName : furosemi de Not Available Not Available Not Available metolazon e 2.5 mg tablet active Not Available Not Available Not Available metformin 500 mg tablet 05/11 completed Medicati on ID: [id number] Br and Name: metformi n Send Method: [...] ous solution 05/11 completed Medicati on ID: [id number] D uration Value: 28 Brand Name: Lantus U-100 Insulin Send Method: E-Prescr ibed Sub s Allowed: subs OK Speci al Instruct ion: INJECT 10 UNITS SUBCUTAN EOUSLY AT BEDTIME DISCAR D VIAL AFTER 28 DAYS Medic ationGen ericName : Lantus U-100 Insulin Not Available Not Available Not Available digoxin 250 mcg (0.25 mg) tablet 05/11 completed Medicati on ID: [id number] Br and Name: digoxin Send Method: E-Prescr ibed Sub s Allowed: subs OK Medic ationGen ericName : digoxin Not Available Not Available Not Available omeprazol e 40 mg capsule,d elayed release active Medicati on ID: [id number] B rand Name: omeprazo le Send Method: E-Prescr ibed Sub s Allowed: subs OK Medic ationGen ericName : omeprazo le Not Available Not Available Not Available tramadol 50 mg tablet 05/11 completed Medicati on ID: [id number] Br and Name: tramadol Send Method: E-Prescr ibed Sub s Allowed: subs OK Medic ationGen ericName : tramadol Not Available Not Available Not Available warfarin 4 mg tablet active Not Available Not Available Not Available Nexium 20 mg capsule,d elayed release 1 capsule by mouth once a day 05/11 completed Medicati on ID: [id number] Br and Name: Nexium S end Method: [...] 0.4 mg capsule active Medicati on ID: [id number] B rand Name: tamsulos in Send Method: E-Prescr ibed Sub s Allowed: subs OK Medic ationGen ericName : tamsulos in Not Available Not Available Not Available glipizide ER 2.5 mg tablet, extended release 24 hr 05/11 completed Medicati on ID: [id number] Br and Name: glipizid e Send Method: E-Prescr ibed Sub s Allowed: subs OK Medic ationGen ericName : glipizid e Not Available Not Available Not Available warfarin 2 mg tablet active Medicati on ID: [id number] B rand Name: warfarin Send Method: E-Prescr ibed Sub s Allowed: subs OK Medic ationGen ericName : warfarin Not Available Not Available Not Available fluticaso ne propionat e 50 mcg/actua tion nasal spray,andres pension 05/11 completed Medicati on ID: [id number] D uration Value: 30 Brand Name: fluticas one propiona te Send Method: E-Prescr ibed Sub s Allowed: subs OK Speci al Instruct ion: USE 1 SPRAY IN EACH NOSTRIL TWICE A DAY Medi cationGe nericNam e: fluticas one propiona te Not Available Not Available Not Available metformin ER 500 mg tablet,ex tended release 24 hr active Medicati on ID: [id number] B rand Name: metformi n Send Method: E-Prescr ibed Sub s Allowed: subs OK Medic ationGen ericName : metformi n Not Available Not Available Not Available ipratropi um bromide 21 mcg (0.03 %) nasal spray Inhale 2 spray into both nostrils three times a day as directed 05/11 completed Medicati on ID: [id number] Br and Name: Jessica Send Method: E-Prescr [...] mcg tablet 05/11 completed Medicati on ID: [id number] Br and Name: Centrum Silver Ultra Men's Se nd Method: E-Prescr ibed Sub s Allowed: subs OK Medic ationGen ericName : Centrum Silver Ultra Men's Not Available Not Available Not Available Vitals Date Recorded Body height Body mass index (BMI) Body weight Provider Name and Address Organization Details Last Updated DateTime 08/14/2023 172.72 cm 38 kg/m2 096897.09 g Tevin Koch MA - [facility] 08/14/2023 10:01:01 Social History None recorded. Functional Status None recorded. Mental Status None recorded. Family History Nothing Reported. Medical History No medical history recorded. Past Encounters Encounter ID Performer Location Encounter Start Date Encounter Closed Date Diagnosis/Indication Diagnosis SNOMED-CT Code Diagnosis ICD10 Code Diagnosis Note [id number] RAMYA ARNDT MD [facility] [address] [id number] 08/14/2023 09:50:50 08/14/2023 10:16:30 Benign neoplasm of parotid gland [id number] D11.0 Health Concerns Section Related Observation LastModified by Organization Detai ls LastModified Time None Recorded Concern Status LastModified by Organization Details LastModified Time None Recorded Advance Directives Directive None Recorded Payers Encounter Date Sequence Insurance Name Policy Number Policy Casarez Covered Member ID Casarez Member ID Guarantor Name 08/14/2023 2 [place] Leonardo Pang [id number] Leonardo Pang 08/14/2023 1 MEDIC[place]: [employer] Leonardo Pang [id number] Leonardo Pang Notes Date Note Type Note Provider Name and Address Organization Details Recorded Time 08/14/2023 text/html left parotid FNA 05/17/21 - warthin tumorct neck w contrast at [place] 04/27/21left parotid 2.8cm mass. compare with prior [...] cochlear implant with Dr Demetrio ARNDT MD [address] [place] [address], [phone], [facility] - [facility] 08/14/2023 10:15:11
[2024-04-01 13:46] LABS: MANUAL DIFF FLAG NO
[2024-04-01 13:55] LABS: Basophils Percent Auto 0.1 % (0-2); Eosinophils Absolute Auto 0.3 X10*3/uL (0.0-0.4); Eosinophils Percent Auto 3.6 % (0-4); Hematocrit 35.7 % (42.0-52.0); Hemoglobin 11.5 g/dl (14.0-18.0); Imm Gran Abs Auto 0.05 X10*3/uL (0.00-0.03); Imm Gran Pct Auto 0.7 % (0.0-0.4); Lymphocytes Percent Auto 13.7 % (20-40); Mean Corpuscular HGB Conc 32.2 g/dl (31.0-36.0); Mean Corpuscular Hemoglobin 31.7 pg (27.0-33.0); Mean Corpuscular Volume 98.3 fL (80.0-98.0); Mean Platelet Volume 10.9 fL (9.4-12.4); Monocytes Absolute Auto 0.8 X10*3/uL (0.1-1.2); Neutrophils Absolute Auto 5.3 x10*3/uL (2.0-8.3); Neutrophils Percent Auto 70.9 % (45-73); Platelet Count 179 X10*3/uL (160-400); Red Blood Count 3.63 X10*6/uL (4.60-5.80); Red Cell Distribution Width 13.8 % (11.0-16.0); White Blood Count 7.5 X10*3/uL (4.8-10.8)
[2024-04-01 13:59] LABS: Anion Gap 15 (12-20); Blood Urea Nitrogen 18 mg/dL (9-16); Carbon Dioxide 26 mmol/L (22-29); Chloride 107 mmol/L (96-108); Estimated Glomerular Filt Rate > 60; Glucose Random 114 mg/dL (60-115); Potassium 4.6 mmol/L (3.3-5.1); Sodium 143 mmol/L (135-145)
== END 2024-04-01 09:21 | disposition home or self-care (01) ==
LOC: HO.HMGCLNP 09:20
PROVIDERS: Visit Provider Internal Medicine
DX: N39.0 Urinary tract infection, site not specified (principal); B96.1 Klebsiella pneumoniae [K. pneumoniae] as the cause of diseases classified elsewhere; N10 Acute pyelonephritis
CPT/HCPCS: 80048; 85025

== ENCOUNTER → 2024-04-01 09:24 | Outpatient (BNVA) | payer MEDICARE, SELFPAY | PROVIDERS: PCP Internal Medicine; Visit Provider Internal Medicine ==

== ENCOUNTER 2024-04-02 17:27 | Emergency (ER) | payer MEDICARE, SELFPAY ==
[2024-04-02 18:12] VITALS: BP 112/46; PULSE 59; RESP 16; TEMP 36.3; O2SAT 97; BMI 40.3
--- NOTE | 2024-04-02 18:14 | ED.GENADULT ---
HPI - General Adult General Chief complaint: General Medical Stated complaint: rash from pic line? Allergic reaction? Time Seen by Provider: 04/02/24 23:41 Source: patient and family Mode of arrival: ambulatory Limitations: no limitations History of Present Illness ED Provider: Dr. Krystal Higgins HPI narrative: Patient comes to the emergency room complaining of a malodorous rash under the patient's chest and groin area. Patient is on Kefzol IV through his PICC line. Patient being treated for MSSA bacteremia, pyelonephritis, possible diskitis versus osteomyelitis. Patient denies any fever or chills. Related Data Home Medications ?Medication ?Instructions ?Recorded ?Confirmed pravastatin 80 mg tablet 80 mg PO BEDTIME 12/31/19 04/02/24 tamsulosin 0.4 mg capsule 0.4 mg PO DAILY@1700 12/31/19 04/02/24 cholecalciferol (vitamin D3) 25 50 mcg PO DAILY@1600 05/08/20 04/02/24 mcg (1,000 unit) capsule ckchctpgabue-ezbwptru-ptgnev tablet 1 tab PO DAILY 05/08/20 04/02/24 oxycodone-acetaminophen 5 mg-325 1 tab PO 5XD PRN Pain 05/08/20 04/02/24 mg tablet blood sugar diagnostic #10 ea 06/12/20 04/02/24 pen needle, diabetic 31 gauge x #50 ea 06/12/20 04/02/2405/23 carvedilol 12.5 mg tablet 12.5 mg PO DAILY 09/06/23 04/02/24 furosemide 40 mg tablet 40 mg PO SUTUTHSA@0900 09/06/23 04/02/24 glipizide 5 mg tablet, extended 10 mg PO BID 09/06/23 04/02/24 release 24 hr metformin 500 mg tablet,extended 500 mg PO DAILY@1400 09/06/23 04/02/24 release 24 hr metolazone 2.5 mg tablet 2.5 mg PO SA@0909/06/23 04/02/24 warfarin 2 mg tablet 6 mg PO DAILY@1800 10/07/23 04/02/24 furosemide 80 mg tablet 80 mg PO MOWEFR@0900 02/04/24 04/02/24 ferrous sulfate 325 mg (65 mg 325 mg PO DAILY 03/07/24 04/02/24 iron) tablet (iron) metformin 500 mg tablet,extended 1,000 mg PO DAILY 03/07/24 04/02/24 release 24 hr Previous Rx's ?Medication ?Instructions ?Recorded cefazolin 2 gram/50 mL in dextrose 50 ml IV Q8H 35 days #105 ea 03/16/24 (iso-osmotic) intravenous piggyback magnesium hydroxide 400 mg/5 mL 30 ml PO DAILY PRN Constipation 03/16/24 oral suspension (Milk of Magnesia) #3,000 mL oxycodone 10 mg tablet 10 mg PO Q6H PRN pain (scale score 03/16/24 7-10) #20 tabs polyethylene glycol 3350 17 gram 17 g PO DAILY PRN constipation #30 03/16/24 oral powder packet (Miralax) ea clotrimazole 1 % topical cream 1 appl topical TID 4 weeks #90 04/03/24 grams Allergies Allergy/AdvReac Type Severity Reaction Status Date / Time Penicillins [PENICILLINS] Allergy Intermediate rash- Verified 04/02/24 18:16 STATES BAD RXN CHILD Review of Systems Review of Systems: Constitutional : No Weight loss, No Fever, No Chills, No Night Sweats, No Fatigue, No Malaise ENT/Mouth : No Hearing loss, No Ear Pain, No Nasal Congestion, No Sinus Pain, No Hoarseness, No sore throat, No Rhinorrhea, No Swallowing Difficulty Eyes: No Eye Pain, No Swelling, No Redness, No Foreign Body, No Discharge, No Vision Changes Cardiovascular : No Chest Pain, No SOB, No Dyspnea on Exertion, No Orthopnea, No Edema, No Palpitations Respiratory : No Cough, No Sputum, No Wheezing, No Smoke Exposure, No Dyspnea Gastrointestinal : No Nausea, No Vomiting, No Diarrhea, No Constipation, No abdominal Pain, No Hematochezia, No Melena Genitourinary : no irregular bleeding, No Dysuria, No Urinary Frequency, No Hematuria, No Urinary Incontinence, No Urgency, No Flank Pain, No Urinary Flow Changes, No Hesitancy Musculoskeletal : No joint pain, No Myalgias, No Joint Swelling Skin : Complaining of a malodorous rash in patient's groin area and under the breasts Neuro : No Weakness, No Numbness, No Paresthesias, No Loss of Consciousness, No Dizziness, No Headache Psych : No Anxiety/Panic, No Depression, No SI/HI/AH/VH, No Social Issues, Heme/Lymph: No Bruising, No Bleeding,No Lymphadenopathy Endocrine : No Polyuria, No Polydipsia, No Temperature Intolerance [facility] Past Medical History Medical History Diabetic foot ulcer MSSA bacteremia Foot ulcer, right Ambulates with cane Cochlear implant in place Type 2 diabetes mellitus with unspecified complications Essential hypertension Persistent atrial fibrillation Osteoarthritis of left knee Deafness in left ear JUDIE (obstructive sleep apnea) Osteoarthritis Anemia Venous stasis Hard of hearing Obesity GERD (gastroesophageal reflux disease) BPH (benign prostatic hyperplasia) Diabetes Peripheral edema Atrial fibrillation COPD (chronic obstructive pulmonary disease) Chronic a-fib Surgical History History of umbilical hernia repair (02/18/24) Hx of total knee arthroplasty History of amputation of toe Hx of total shoulder replacement Hx of colonoscopy History of bilateral hip replacements Uses cochlear implant Family History Family History Father No problems noted. 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 Oriented X3. No acute distress. Eyes: Pupils equal, round and reactive to light. ENT: Pharynx normal. Neck: Normal inspection. Neck supple. No lymph nodes noted. No crepitus CVS: Normal heart rate and rhythm. Pulses normal. Normal S1 and S2 Respiratory: No respiratory distress. Breath sounds normal. No Wheezing. No rales Abdomen: Soft and nontender. No rigidity. No distention. Skin: Under patient's chest in the skin fold between the chest and in the groin area patient has candidiasis Extremities: No lower extremity edema. No Lacerations. No Rash Neuro: Oriented X 3. No motor deficit. No sensory deficit. Moving all extremities. No slurred speech. CN 2 through 12 grossly intact Psych: calm, cooperative, normal affect Course Course Course Narrative: This is a rapid medical exam performed by Savannah Hyman NP: Additional HPI, ROS, PE not included below will be deferred to primary provider. Patient is a 74-year-old male with history of MSSA bacteremia, chronic right heart failure, JUDIE, PICC line to right arm with cefazolin for foot infection presenting with who reports rash to chest and groin x 4 days. PCP concerned about medication reaction. Plan: Labs Medical Decision Making Medical Decision Making [facility] Narrative: My interpretation of labs: Patient's hematology and chemistry do not show any acute abnormality. I discussed with the patient that being on antibiotics makes him prone to fungal infections. Patient was given a dose of Diflucan in the emergency room. Patient will need topical treatment which was sent to his pharmacy. Differential Diagnosis Differential Diagnoses: The differential diagnosis associated with the presentation includes (Candidiasis, allergic reaction) Lab Data [facility] Lab Attestation statement: I reviewed the patient's lab results. 04/02/24 18:31 04/02/24 18:31 Labs: Lab Results 04/02/24 Range/Units 18:31 WBC 8.4 (4.8-10.8) X10*3/uL RBC 3.69 L (4.60-5.80) X10*6/uL Hgb 11.6 L (14.0-18.0) g/dl Hct 35.2 L (42.0-52.0) % MCV 95.4 (80.0-98.0) fL MCH 31.4 (27.0-33.0) pg MCHC 33.0 (31.0-36.0) g/dl RDW 13.8 (11.0-16.0) % Plt Count 160 (160-400) X10*3/uL MPV 10.1 (9.4-12.4) fL Immature Gran % (Auto) 0.5 H (0.0-0.4) % Neut % (Auto) 64.7 (45-73) % Lymph % (Auto) 16.9 L (20-40) % Rabun % (Auto) 13.3 H (2-11) % Eos % (Auto) 4.4 H (0-4) % Baso % (Auto) 0.2 (0-2) % Lymph # (Auto) 1.4 (1.2-4.9) X10*3/uL Rabun # (Auto) 1.1 (0.1-1.2) X10*3/uL Eos # (Auto) 0.4 (0.0-0.4) X10*3/uL Baso # (Auto) 0.0 (0.0-0.2) X10*3/uL Abs Immat Gran (auto) 0.04 H (0.00-0.03) X10*3/uL Absolute Neuts (auto) 5.4 (2.0-8.3) x10*3/uL Absolute Nucleated RBC 0.000 (0.0-0.012) X10*3/uL Nucleated RBC % (auto) 0.0 (0.0-0.2) /100WBC Sodium 141 (135-145) mmol/L Potassium 4.2 (3.3-5.1) mmol/L Chloride 104 (96-108) mmol/L Carbon Dioxide 27 (22-29) mmol/L Anion Gap 14 (12-20) BUN 19 H (9-16) mg/dL Creatinine 0.95 (0.5-1.4) mg/dL Estim Creat Clear Calc 88.5 Estimated GFR > 60 Random Glucose 175 H (60-115) mg/dL Calcium 8.9 (8.4-10.2) mg/dL Total Bilirubin 0.3 (0.0-1.0) mg/dL AST 21 (5-37) U/L ALT < 6 (0-40) U/L Alkaline Phosphatase 79 (39-117) U/L Total Protein 6.9 (6.5-8.0) g/dL Albumin 3.5 (3.5-5.0) g/dL Discharge Plan Discharge Clinical Impression: Candidiasis Patient Disposition: Home, Self-Care Instructions: Skin Yeast Infection (ED) Additional Instructions: Please follow-up with your primary care physician tomorrow. If you have any worsening or new symptoms, please return to the emergency room or call 911 Prescriptions: New clotrimazole 1 % cream 1 appl topical TID 28 Days Qty: 90 1RF No Action pravastatin 80 mg tablet 80 mg PO BEDTIME tamsulosin 0.4 mg capsule 0.4 mg PO DAILY@1700 furosemide 40 mg tablet 40 mg PO SUTUTHSA@0900 carvedilol 12.5 mg tablet 12.5 mg PO DAILY glipizide 5 mg tablet extended release 24hr 10 mg PO BID metolazone 2.5 mg tablet 2.5 mg PO SA@0900 metformin 500 mg tablet extended release 24 hr 500 mg PO DAILY@1400 warfarin 2 mg tablet 6 mg PO DAILY@1800 Protocol: Dose Management Condition: Friday (Week One) Dose/Route: 6 mg Instruction: 3 x 2 mg tablets Condition: Friday Dose/Route: 6 mg Instruction: 3 x 2 mg tablets Condition: Friday Dose/Route: 6 mg Instruction: 3 x 2 mg tablets Condition: Friday Dose/Route: 4 mg Instruction: 2 x 2 mg tablets Condition: Dose/Route: 6 mg Instruction: 3 x 2 mg tablets Condition: Friday Dose/Route: 6 mg Instruction: 3 x 2 mg tablets Condition: Friday Dose/Route: 6 mg Instruction: 3 x 2 mg tablets Condition: Friday (Week Two) Dose/Route: 6 mg Instruction: 3 x 2 mg tablets Condition: Friday Dose/Route: 6 mg Instruction: 3 x 2 mg tablets Condition: Friday Dose/Route: 6 mg Instruction: 3 x 2 mg tablets Condition: Friday Dose/Route: 4 mg Instruction: 2 x 2 mg tablets Condition: Dose/Route: 6 mg Instruction: 3 x 2 mg tablets Condition: Friday Dose/Route: 6 mg Instruction: 3 x 2 mg tablets Condition: Friday Dose/Route: 6 mg Instruction: 3 x 2 mg tablets Protocol Text: Adjustment Start Date: 04/01/24 INR Value: 1.9 INR Date: 04/01/24 Recheck Date: 04/08/24 Additional Instructions: REVIEW FOOD LIST WEEKLY, EAT ORANGE AND VEGETABLES TO HELP RAISE THE INR PLUS ONION GARLIC AND NUT, KEEP WARAFARIN DOSE THE SAME FOR NOW - THE ANTBX CAN HAVE A DELAYED AFFECT RAISING THE INR Rx Instructions: 6MGX7 furosemide 80 mg Tablet 80 mg PO MOWEFR@0900 metformin 500 mg tablet extended release 24 hr 1,000 mg PO DAILY ferrous sulfate [iron] 325 mg (65 mg iron) Tablet 325 mg PO DAILY oxycodone 10 mg tablet 10 mg PO Q6H PRN (Reason: pain (scale score 7-10)) Qty: 20 0RF Rx Instructions: Partial Fill upon patient request. magnesium hydroxide [Milk of Magnesia] 400 mg/5 mL Suspension 30 ml PO DAILY PRN (Reason: Constipation) Qty: 3000 0RF polyethylene glycol 3350 [Miralax] 17 gram powder in packet 17 g PO DAILY PRN (Reason: constipation) Qty: 30 0RF cefazolin in dextrose (iso-os) 2 gram/50 mL Piggyback 50 ml IV Q8H 35 Days Qty: 105 0RF oxycodone-acetaminophen 5-325 mg tablet 1 tab PO 5XD PRN (Reason: Pain) cholecalciferol (vitamin D3) 25 mcg (1,000 unit) capsule 50 mcg PO DAILY@1600 zeszkxmeotby-aahhxixz-vfohpq Tablet 1 tab PO DAILY (DME) blood sugar diagnostic Strip See Rx Instructions .ROUTE .MEDSUPPLY Qty: 10 Rx Instructions: As directed (DME) pen needle, diabetic 31 gauge x 3/16 needle See Rx Instructions subcut .MEDSUPPLY Qty: 50 Rx Instructions: As directed Print Language: Polish
--- OUTSIDE RECORDS SUMMARY | 2024-04-02 18:35 | XMS_ITS | Data Portability ---
Author Organization [facility], Allergy Address [address] [address] Care Team Providers Care Tool Crib Supervisor Name Role Phone EMMA THOMAS Primary Care [...] Gastroeso phageal reflux disease without esophagit is 940845058 Active 2014 Gastro-eso phageal reflux disease without esophagiti s; Note: Date Diagnosed: 01/16/2015 10:07 AM (K21.9) Not Available [facility] 4 02:31:43 Sensorine ural hearing loss of bilateral ears 784498484 Active 2013 SNHL Bilaterall y; CMS Risk: low risk Note: Date Diagnosed: 12/10/2013 9:18 AM (389.18) Not Available [facility] 4 02:31:47 Deviated nasal septum 005733898 Active 2014 Septal Deviation; Note: Date Diagnosed: 08/05/2014 11:13 AM (470) ; Start Date : 08/05/2014 Deviated nasal septum; Note: Date Diagnosed: 01/16/2015 9:52 AM (J34.2) Not Available [facility] 4 02:31:48 Bilateral sensory hearing loss 752381112 Active 2013 Hearing loss: Sensory hearing loss, bilateral; Location: left Note: Date Diagnosed: 12/16/2013 11:26 AM (389.11) Not Available [facility] 4 02:31:45 Simple obesity 196809486 Active 2016 Other obesity due to excess calories; Note: Date Diagnosed: 10/09/2016 1:21 PM (E66.09) Not Available [facility] 4 02:31:33 Postopera tive follow-up visit Active 2013 Post op; Note: Date Diagnosed: 12/16/2013 11:26 AM (V67.00) Not Available [facility] 4 02:31:42 Hypertrop hy of nasal turbinate s 22821951 Active 2014 Nasal turbinate hypertroph y; Note: Date Diagnosed: 02/16/2014 12:31 PM (478.0) ; Start Date : 02/16/2014 Hypertrop hy of nasal turbinates ; Note: Date Diagnosed: 01/16/2015 9:52 AM (J34.3) Not Available [facility] 4 02:31:37 Obstructi ve sleep apnea syndrome 13555904 Active 2015 Obstructiv e sleep apnea (adult) (pediatric ); Note: Date Diagnosed: 05/04/2015 4:55 PM (G47.33) Not Available [facility] 4 02:31:48 Allergic rhinitis caused by pollen 58504858 Active 2013 Vasomotor rhinitis; Note: Date Diagnosed: 01/10/2014 2:23 PM (477.0) Not Available [facility] 4 02:31:46 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 Procedures Surgical History None recorded. Imaging Results Imaging Date Name Status [facility]Modified by [facility] Details LastModified Time 04/27/2021 imaging/diag nostic result completed Information not available 10/28/2023 21:36:47 06/01/2021 imaging/diag nostic result completed Information not available 10/28/2023 21:37:06 Procedure Notes None recorded. Medical Equipment None Reported. Allergies Allergen ID Allergen Name Allergen Category Reaction Reaction Severity Criticality Documentation Date Start Date Code Code System Note Provider Name and Address Organization Details Recorded Time 19998 Product containin g penicilli n and antibioti c (product) medicatio n other Not available Not available 07/22/2023 38022 05 SNOMED React ion: Unkno wn; Not Available [facility] 4 00:23:22 Medications Name Sig Start Date Stop Date Status Note LastModified by Organization Details LastModified Time furosemid e 40 mg tablet active Medicati on ID: [id number] B rand Name: furosemi de Send Method: E-Prescr ibed Sub s Allowed: subs OK Medic ationGen ericName : furosemi de Not Available Not Available Not Available metolazon e 2.5 mg tablet active Not Available Not Available Not Available metformin 500 mg tablet 05/11 completed Medicati on ID: [id number] Br and Name: metformi n Send Method: [...] ous solution 05/11 completed Medicati on ID: [id number] D uration Value: 28 Brand Name: Lantus U-100 Insulin Send Method: E-Prescr ibed Sub s Allowed: subs OK Speci al Instruct ion: INJECT 10 UNITS SUBCUTAN EOUSLY AT BEDTIME DISCAR D VIAL AFTER 28 DAYS Medic ationGen ericName : Lantus U-100 Insulin Not Available Not Available Not Available digoxin 250 mcg (0.25 mg) tablet 05/11 completed Medicati on ID: [id number] Br and Name: digoxin Send Method: E-Prescr ibed Sub s Allowed: subs OK Medic ationGen ericName : digoxin Not Available Not Available Not Available omeprazol e 40 mg capsule,d elayed release active Medicati on ID: [id number] B rand Name: omeprazo le Send Method: E-Prescr ibed Sub s Allowed: subs OK Medic ationGen ericName : omeprazo le Not Available Not Available Not Available tramadol 50 mg tablet 05/11 completed Medicati on ID: [id number] Br and Name: tramadol Send Method: E-Prescr ibed Sub s Allowed: subs OK Medic ationGen ericName : tramadol Not Available Not Available Not Available warfarin 4 mg tablet active Not Available Not Available Not Available Nexium 20 mg capsule,d elayed release 1 capsule by mouth once a day 05/11 completed Medicati on ID: [id number] Br and Name: Nexium S end Method: [...] 0.4 mg capsule active Medicati on ID: [id number] B rand Name: tamsulos in Send Method: E-Prescr ibed Sub s Allowed: subs OK Medic ationGen ericName : tamsulos in Not Available Not Available Not Available glipizide ER 2.5 mg tablet, extended release 24 hr 05/11 completed Medicati on ID: [id number] Br and Name: glipizid e Send Method: E-Prescr ibed Sub s Allowed: subs OK Medic ationGen ericName : glipizid e Not Available Not Available Not Available warfarin 2 mg tablet active Medicati on ID: [id number] B rand Name: warfarin Send Method: E-Prescr ibed Sub s Allowed: subs OK Medic ationGen ericName : warfarin Not Available Not Available Not Available fluticaso ne propionat e 50 mcg/actua tion nasal spray,andres pension 05/11 completed Medicati on ID: [id number] D uration Value: 30 Brand Name: fluticas one propiona te Send Method: E-Prescr ibed Sub s Allowed: subs OK Speci al Instruct ion: USE 1 SPRAY IN EACH NOSTRIL TWICE A DAY Medi cationGe nericNam e: fluticas one propiona te Not Available Not Available Not Available metformin ER 500 mg tablet,ex tended release 24 hr active Medicati on ID: [id number] B rand Name: metformi n Send Method: E-Prescr ibed Sub s Allowed: subs OK Medic ationGen ericName : metformi n Not Available Not Available Not Available ipratropi um bromide 21 mcg (0.03 %) nasal spray Inhale 2 spray into both nostrils three times a day as directed 05/11 completed Medicati on ID: [id number] Br and Name: Jessica Send Method: E-Prescr [...] mcg tablet 05/11 completed Medicati on ID: [id number] Br and Name: Centrum Silver Ultra Men's Se nd Method: E-Prescr ibed Sub s Allowed: subs OK Medic ationGen ericName : Centrum Silver Ultra Men's Not Available Not Available Not Available Vitals Date Recorded Body height Body mass index (BMI) Body weight Provider Name and Address Organization Details Last Updated DateTime 08/14/2023 172.72 cm 38 kg/m2 398839.09 g Tevin Koch [place] - [facility] 08/14/2023 10:01:01 Social History None recorded. Functional Status None recorded. Mental Status None recorded. Family History Nothing Reported. Medical History No medical history recorded. Past Encounters Encounter ID Performer Location Encounter Start Date Encounter Closed Date Diagnosis/Indication Diagnosis SNOMED-CT Code Diagnosis ICD10 Code Diagnosis Note [id number] RAMYA ARNDT MD [facility] [address] [address] 08/14/2023 09:50:50 08/14/2023 10:16:30 Benign neoplasm of parotid gland 81521295 D11.0 Health Concerns Section Related Observation LastModified by Organization Detai ls LastModified Time None Recorded Concern Status LastModified by Organization Details LastModified Time None Recorded Advance Directives Directive None Recorded Payers Encounter Date Sequence Insurance Name Policy Number Policy Casarez Covered Member ID Casarez Member ID Guarantor Name 08/14/2023 2 [place] Leonardo Pang [id number] Leonardo Pang 08/14/2023 1 [place] [employer] Leonardo Pang [id number] Leonardo Pang Notes Date Note Type Note Provider Name and Address Organization Details Recorded Time 08/14/2023 text/html left parotid FNA 05/17/21 - warthin tumorct neck w contrast at [place] 04/27/21left parotid 2.8cm mass. compare with prior [...] cochlear implant with Dr Demetrio ARNDT MD [address] [place] [address], [phone], [facility] - [facility] 08/14/2023 10:15:11
--- OUTSIDE RECORDS SUMMARY | 2024-04-02 18:35 | XMS_ITS ---
Author Organization [facility] Address [address] [place] [address] Care Team Providers Care Supply Coordinator Name Role Phone Darien Bruner MD Primary Care Provider Unavaila Ronel Reaves Unavailable [phone] REASON FOR VISIT r/s 02/22 Encounters Encounter Location Date Provider Diagnosis [address] [address] 02/12/2024 Ronel Leon Plan Of Treatment Next Appt Details Provider Name:Ronel Larry Edward , 04/19/2024 10:15:00 AM, [address] [place], [address], Progress Notes * Leonardo GRIFFINDOB:1950 (73 yo M)Acc No.[id number]:02/12/2024 Patient:?Leonardo GRIFFIN :1950???Age:73 Y???Sex:Male Address:[address] [place] [address], [address] * true * Date:? Generated for Printi ng/Famargog/eTransmitting on:?04/02/2024 06:34 PM EST
--- OUTSIDE RECORDS SUMMARY | 2024-04-02 18:35 | XMS_ITS ---
Author Organization [facility] Address [address] [place] [address] Care Team Providers Care Equipment Mechanic Name Role Phone Darien Bruner MD Primary Care Provider UnavailGriffin Cheng Jr Unavailable REASON FOR VISIT Barium enema Encounters Encounter Location Date Provider Diagnosis [facility] [address] [place] [address] 11/18/2022 Griffin Donahue Jr Colon cancer screening Z12.11 ASSESSMENTS Encounter Date Diagnosis Assessment Notes Treatment Notes Treatment Clinical Notes 11/18/2022 Colon cancer screening (ICD-10 - Z12.11) PLAN OF TREATMENT Pending Test Test Name Order Date XR BARIUM ENEMA 11/18/2022
--- OUTSIDE RECORDS SUMMARY | 2024-04-02 18:35 | XMS_ITS | Clinical Summary ---
Author Organization [facility] Address [address] [place] [address] Care Team Providers Care Geospatial Scientist Name Role Phone Darien Bruner MD Primary Care Provider [phone] Allergies Active Allergy Reactions Criticality Noted Date Comments Penicillins Unknown/Patient and Family Unable to Define Medium 02/10/2024 Medications Medication Sig Dispensed Refills Start Date End Date Status SUPPLY DME MISCIndications:Pain in right ankle and joints of right foot RT ANKLE / Foot STANDING ROCK Boot Dx: Diabetic Neuropathy, RT Plantar foot Ulcer 1 each 02/10/2024 Active Encounters Date Type Department Care Team Description 02/10/2024 10:30 AM EST [place] [address] Ant Matos MD Pain in left ankle and joints of left foot (Primary Dx); Pain in right ankle and joints of right foot 02/10/2024 10:20 AM EST Ancillary [place] [address] from Last 3 Months Social History Tobacco Use Types Packs/Day Years Used Date Smoking Tobacco: Never Assessed Sex and Gender Information Value Date Recorded Sex Assigned at Not on file Gender Identity Not on file Sexual Orientation Not on file Plan of Treatment Health Maintenance Due Date Last Done Comments Hepatitis C Virus Screening 1950 DTaP/Tdap/Td Vaccines (1 - Tdap) 1971 Colonoscopy 1997 Pneumococcal Vaccines 50+ (1 of 1 - PCV) 2002 Zoster (Shingles) Vaccine (1 of 2) 2002 RSV Vaccine 60 years and older and Patients (1 - Risk 60-74 years 1-dose series) 2012 Influenza Vaccine 10/09/2023 COVID-19 Vaccine (3 - 2023-2 5 season) 2023 06/08/2020, 05/18/2020 Hepatitis B Vaccines Aged Out No long er eligible based on patient's age to complete this topic Procedures Procedure Name Priority Date/Time Associated Diagnosis Comments XR FOOT 3+ VIEWS-BILATERAL Routine 02/10/2024 10:29 AM EST Pain in left ankle and joints of left foot Pain in right ankle and joints of right foot from Last 3 Months Results * XR Foot 3+ views-Bilateral (02/10/2024 10:29 AM EST) Narrative OAH - 02/10/2024 10:29 AM EST This exam was performed in office at [facility] and images reviewed by orthopedic provider. ??Any findings are documented within ambulatory encounter note on date of service. Ant Matos MD IMG DIAGNOSTIC IMAGI NG ORDERABLES OA from Last 3 Months Care Teams Geospatial Scientist Relationship Specialty Start Date End Date Darien Bruner MD [address] [place] [address] [place] [address] PCP - General 01/19/24
--- OUTSIDE RECORDS SUMMARY | 2024-04-02 18:35 | XMS_ITS ---
Author Organization [facility] Address [address] [place] [address] Care Team Providers Care Medical Assistant Float Name Role Phone Darien Bruner MD Primary Care Provider Unavaila Griffin Torres Jr Unavailable [phone] REASON FOR VISIT screening Encounters Encounter Location Date Provider Diagnosis [facility] Outpatient [address] [place] [id number] 11/01/2022 Griffin Donahue Jr Colon cancer screening Z12.11 ASSESSMENTS Encounter Date Diagnosis Assessment Notes Treatment Notes Treatment Clinical Notes 11/01/2022 Colon cancer screening (ICD-10 - Z12.11) PLAN OF TREATMENT No Information
--- OUTSIDE RECORDS SUMMARY | 2024-04-02 18:35 | XMS_ITS | Patient Health Record ---
Author Organization [facility] Address [address] [place] [address] Care Team Providers Care Ticket Sales Agent Name Role Phone Darien Bruner MD Primary Care Provider Unavaila Ronel Reaves Unavailable [phone] Allergies Allergen (clinical drug ingredient) Drug/Non Drug [...] Administration Date Status Comme nts Influenza Unknown 07/10/2015 Pending Influenza Unknown 07/10/2015 Pending Influenza Unknown 01/01/2016 Administered Influenza Unknown 11/25/2016 Administered Influenza Unknown 11/06/2017 Administered Influenza Unknown 12/09/2019 Administered Influenza Unknown 11/08/2021 Administered Influenza Unknown 11/08/2022 Administered COVID-19 Pfizer BioNTech Vaccine Unknown 05/18/2020 Administered Second Dose: 06/08/2020 Social History Tobacco Use: Social History Observation [...] Problem Acquired hammer toe of right foot (6267421835825943) Other hammer toe(s) (acquired), right foot (M20.41) Active confirmed Problem Acquired hammer toe of left foot (3512891058778273) Other hammer toe(s) (acquired), left foot (M20.42) Active confirmed Problem Plantar wart (35965082) Plantar wart (B07.0) Active confirmed Problem Ulcer of toe (199260578) Non-pressure chronic ulcer of other part of left foot limited to breakdown of skin (L97.521) Active confirmed Problem Non-pressure chronic ulcer of other part of right foot limited to breakdown of skin (L97.511) Active confirmed Problem [id number] Hallux valgus (acquired), left foot (M20.12) Active confirmed Problem 009952266635548 Hallux valgus (acquired), right foot (M20.11) Active confirmed Problem Acquired hammer toe of right foot (7537757800954490) Other hammer toe(s) (acquired), right foot (M20.41) Active confirmed Problem Acquired hammer toe of left foot (9265633469039047) Other hammer toe(s) (acquired), left foot (M20.42) Active confirmed Problem Polyneuropathy due to type 2 diabetes mellitus (217243412) Type 2 diabetes mellitus with diabetic polyneuropathy (E11.42) Active confirmed Problem 08148062 Charcot foot due to diabetes mellitus (E11.610) Active confirmed Problem 90129252 Unsteady gait (R26.81) Active confirmed Problem 42422032 Charcot gait (R26.0) Active confirmed Problem Ulcer of toe of right foot (disorder) (54311096204148641 ) Skin ulcer of toe of right foot, limited to breakdown of skin (L97.511) Active confirmed Problem 411028633 Pressure injury of right foot, unstageable (L89.890) Active confirmed Problem Ulcer of toe of left foot (disorder) (39812903404524330 ) Skin ulcer of toe of left foot, limited to breakdown of skin (L97.521) Active confirmed Problem Stasis dermatitis (02719858) Stasis dermatitis (I87.2) Active confirmed Vital Signs Blood pressure diastolic 69 mm Hg 10/23/2023 Height 5ft8in in 10/23/2023 Blood pressure systolic 102 mm Hg 10/23/2023 Weight 255 lbs 10/23/2023 BMI 38.77 kg/m2 10/23/2023 Procedures Procedure Date Ordered Date Performed Result Body Sit e 02708-SFAQILK NAIL, 6 OR MORE 06/19/2023 N/A 10852-Uagv Destruction, 1-14 06/19/2023 N/A 55965-IQOG SKIN LESIONS, OVER 4 06/19/2023 N/A 53249-ALCYSPJ NAIL, 6 OR MORE 10/23/2023 N/A 79460-ZQGS SKIN LESIONS, OVER 4 10/23/2023 N/A Encounters Encounter Location Date Provider Diagnosis [address] [address] 06/19/2023 Ronel Leon Type 2 diabetes mellitus with diabetic polyneuropathy E11.42 ; Tinea unguium B35.1 ; Plantar wart B07.0 ; Pain in right foot M79.671 ; Charcot gait R26.0 ; Edema, lower extremity R60.0 and Stasis dermatitis I87.[address] [address] 10/23/2023 Ronel Leon Type 2 diabetes mellitus with diabetic polyneuropathy E11.42 ; Tinea unguium B35.1 ; Charcot gait R26.0 and Pressure injury of right foot, unstageable L89.[address] [address] 02/12/2024 Ronel Black Assessments Encounter Date Diagnosis (ICD Code) Assessment Notes Treatment Notes Treatment Clinical Notes Section Notes 06/19/2023 Type 2 diabetes mellitus with diabetic polyneuropathy (ICD-10 - E11.42) 06/19/2023 Tinea unguium (ICD-10 - B35.1) 10/23/2023 Tinea unguium (ICD-10 - B35.1) 10/23/2023 Type 2 diabetes mellitus with diabetic polyneuropathy (ICD-10 - E11.42) 10/23/2023 Charcot gait (ICD-10 - R26.0) 06/19/2023 Plantar wart (ICD-10 - B07.0) 06/19/2023 Pain in right foot (ICD-10 - M79.671) 10/23/2023 Pressure injury of right foot, unstageable (ICD-10 - L89.890) 06/19/2023 Charcot gait (ICD-10 - R26.0) 06/19/2023 Edema, lower extremity (ICD-10 - R60.0) 06/19/2023 Stasis dermatitis (ICD-10 - I87.2) Plan Of Treatment Pending Test Test Name Order Date Hemoglobin A1c 06/04/2018 03900-NQZWINA NAIL, 6 OR MORE 04/22/2011 73808-TQLBCRZ NAIL, 6 OR MORE 07/15/2011 29963-WBVOJOF NAIL, 6 OR MORE 10/28/2011 78178-LLEBWME NAIL, 6 OR MORE 01/16/2012 28168-UDBKZIP NAIL, 6 OR MORE 06/24/2012 97821-YMNOAOZ NAIL, 6 OR MORE 12/28/2012 49171-JTBSVTO NAIL, 6 OR MORE 03/31/2013 76924-TKVPBCX NAIL, 6 OR MORE 06/14/2013 81615-YLNMORR NAIL, 6 OR MORE 09/20/2013 57293-VGXWKDM NAIL, 6 OR MORE 09/21/2014 54250-DAKRVHP NAIL, 6 OR MORE 12/22/2013 34442-OAAVEHL NAIL, 6 OR MORE 11/30/2014 76993-VQPHVYV NAIL, 6 OR MORE 02/06/2015 57696-PQRFPPN NAIL, 6 OR MORE 05/01/2015 89922-YBLLYLA NAIL, 6 OR MORE 07/10/2015 88922-JYMFPGX NAIL, 6 OR MORE 10/02/2015 88607-HADMKUT NAIL, 6 OR MORE 12/14/2015 59720-YDRYZML NAIL, 6 OR MORE 02/22/2016 03056-VPPUDJZ NAIL, 6 OR MORE 05/30/2016 33247-RIVKGUN NAIL, 6 OR MORE 08/29/2016 63974-EVPBJBR NAIL, 6 OR MORE 11/28/2016 11969-ABKHPJR NAIL, 6 OR MORE 02/27/2017 62783-DRULAQZ NAIL, 6 OR MORE 05/29/2017 92757-GEKZWAS NAIL, 6 OR MORE 08/28/2017 27938-JSYSRZQ NAIL, 6 OR MORE 03/12/2018 31238-WUHPKHT NAIL, 6 OR MORE 11/27/2017 99489-RGKKGQF NAIL, 6 OR MORE 06/04/2018 51107-YESBKEC NAIL, 6 OR MORE 07/12/2021 76287-IVFMLJR NAIL, 6 OR MORE 10/25/2021 47175-IWKZBRS NAIL, 6 OR MORE 02/07/2022 48240-BXIIODN NAIL, 6 OR MORE 06/13/2022 72765-NLTASDO NAIL, 6 OR MORE 10/17/2022 08872-BSZTZYK NAIL, 6 OR MORE 02/17/2023 66728-XXRCSOL NAIL, 6 OR MORE 06/19/2023 38072-YIVACVN NAIL, 6 OR MORE 10/23/2023 69276-JZCWUED NAIL, 6 OR MORE 06/20/2014 43997-DIMUKGA NAIL, 6 OR MORE 03/21/2014 01619-LHYCMFP NAIL, 6 OR MORE 09/23/2012 82477-QBXOIYT NAIL, 6 OR MORE 04/08/2012 80409-CRCIMMP NAIL, 6 OR MORE 09/25/2011 05728-FFTNDZP NAIL, 6 OR MORE 02/06/2011 22501-HJJNDZF NAIL, 6 OR MORE 12/05/2010 34387-Xmlw Destruction, 1-14 02/17/2023 48848-Giqz Destruction, 1-14 06/19/2023 67710-Kqrc Destruction, 1-14 06/13/2022 88014-Ggkv Destruction, 1-14 10/17/2022 49798-Swsqlswv Plate 06/20/2014 48508-Stnbuigd Plate 03/21/2014 24395-Iccrjscp Plate 07/12/2021 74249-Wxhxoeia Plate 10/25/2021 26467-Cjsurbil Plate 05/29/2017 80247-Nrfwvaxd Plate 08/29/2016 18183-Jhduavvc Plate 11/30/2014 00595-Anwamrzq Plate 09/21/2014 07931-Bdnjjenj Plate 06/14/2013 52978-Sgyygxoa Plate 12/22/2013 06715-Zvoksrrj Plate 09/20/2013 49038- Debride <25 sq cm 09/20/2013 95906- Debride <25 sq cm 06/14/2013 08420- Debride <25 sq cm 03/31/2013 92130- Debride <25 sq cm 12/28/2012 92473- Debride <25 sq cm 06/24/2012 29163- Debride <25 sq cm 01/16/2012 51107- Debride <25 sq cm 12/26/2010 68361- Debride <25 sq cm 09/02/2011 77009- Debride <25 sq cm 10/28/2011 62022- Debride <25 sq cm 12/22/2013 71145- Debride <25 sq cm 09/21/2014 07005- Debride <25 sq cm 05/30/2016 96700- Debride <25 sq cm 02/22/2016 40536- Debride <25 sq cm 12/14/2015 75833- Debride <25 sq cm 10/02/2015 25993- Debride <25 sq cm 10/12/2015 45401- Debride <25 sq cm 10/06/2014 98160- Debride <25 sq cm 02/27/2017 62211- Debride <25 sq cm 10/17/2022 41302- Debride <25 sq cm 10/25/2021 27552- Debride <25 sq cm 02/07/2022 81737- Debride <25 sq cm 03/21/2014 31436- Debride <25 sq cm 04/08/2012 96310- Debride <25 sq cm 09/23/2012 69358- Debride <25 sq cm 09/25/2011 83641- Debride <25 sq cm 06/20/2014 42547-AMQBOJE SKIN/TISSUE 03/12/2018 69562-DBPSEDG SKIN/TISSUE 06/04/2018 94903-CBOKAYB SKIN/TISSUE 12/11/2011 42267-OTWGOZO SKIN/TISSUE 10/06/2014 50253-LPCGVGS SKIN/TISSUE 11/27/2011 01020 I&D ABSCESS- SIMPLE,SINGLE 015 88679 I&D ABSCESS- SIMPLE,SINGLE 015 54960 I&D ABSCESS- SIMPLE,SINGLE 011 29924-UBHK SKIN LESIONS, OVER 4 12/06/19 11 68745-VAXT SKIN LESIONS, OVER 4 09/25/19 12 16881-AUMO SKIN LESIONS, OVER 4 02/07/20 11 06879-KWCX SKIN LESIONS, OVER 4 04/08/19 13 97700-QBJY SKIN LESIONS, OVER 4 09/24/19 13 95525-VGIE SKIN LESIONS, OVER 4 03/21/19 15 22310-AWRO SKIN LESIONS, OVER 4 10/23/19 24 56259-PSQV SKIN LESIONS, OVER 4 06/21/19 15 33530-QTYK SKIN LESIONS, OVER 4 02/18/20 23 01800-OJTP SKIN LESIONS, OVER 4 06/19/19 24 84998-XZTJ SKIN LESIONS, OVER 4 06/05/19 19 17540-UWME SKIN LESIONS, OVER 4 08/29/19 18 24398-KEFD SKIN LESIONS, OVER 4 11/28/19 18 80492-XUVU SKIN LESIONS, OVER 4 02/28/20 17 16235-EXMT SKIN LESIONS, OVER 4 05/30/19 18 10266-BGDX SKIN LESIONS, OVER 4 11/29/19 17 81548-YYEC SKIN LESIONS, OVER 4 10/18/19 23 92894-OLEE SKIN LESIONS, OVER 4 06/14/19 23 45158-GVCZ SKIN LESIONS, OVER 4 03/12/19 19 27010-YBKG SKIN LESIONS, OVER 4 12/01/19 15 36875-TZGA SKIN LESIONS, OVER 4 02/07/20 15 64451-CMFB SKIN LESIONS, OVER 4 12/23/19 14 57174-AAOE SKIN LESIONS, OVER 4 09/22/19 15 82785-FABW SKIN LESIONS, OVER 4 10/02/19 16 66248-CCBZ SKIN LESIONS, OVER 4 07/10/19 16 07732-CAFD SKIN LESIONS, OVER 4 05/01/19 16 18999-PJJF SKIN LESIONS, OVER 4 12/14/19 16 24529-ZCNU SKIN LESIONS, OVER 4 02/22/20 16 50339-GPHR SKIN LESIONS, OVER 4 05/31/19 17 73921-HZTI SKIN LESIONS, OVER 4 01/16/20 12 06505-HBAG SKIN LESIONS, OVER 4 06/25/19 13 74489-QJEF SKIN LESIONS, OVER 4 10/28/19 12 78972-CPAZ SKIN LESIONS, OVER 4 07/15/19 12 22762-SZWM SKIN LESIONS, OVER 4 04/22/19 12 70485-IXAH SKIN LESIONS, OVER 4 12/29/19 13 80654-OLCM SKIN LESIONS, OVER 4 03/31/19 14 05027-FQWK SKIN LESIONS, OVER 4 06/15/19 14 96714-LXKA SKIN LESIONS, OVER 4 09/21/19 14 82954-YVDN SKIN LESIONS, 2 TO 4 06/15/19 14 59178-IQRH SKIN LESIONS, 2 TO 4 03/31/19 14 98675-PSFN SKIN LESIONS, 2 TO 4 12/29/19 13 79929-IZIK SKIN LESIONS, 2 TO 4 08/30/19 17 84544-GFRP SKIN LESIONS, 2 TO 4 12/23/19 14 00216-UJSY SKIN LESIONS, 2 TO 4 07/13/19 22 27909-FFZE SKIN LESIONS, 2 TO 4 10/26/19 22 10324-WZER SKIN LESIONS, 2 TO 4 02/08/20 22 41106-IOWN SKIN LESIONS, 2 TO 4 06/21/19 15 63049-YPLW SKIN LESIONS, 2 TO 4 03/21/19 15 63505-QOAG SKIN LESIONS, 2 TO 4 09/24/19 13 59805-Nhhd. Subungual Hematoma 2 28566-Ckrj. Subungual Hematoma 2 Next Appt Details Provider Name:Ronel Leon , 04/19/2024 10:15:00 AM, [address] [place], [address], Insurance Providers Payer Name Payer Address Payer Phone Subscriber Number Group Number Insured Name Patient Relationship to Insured Coverage Start Date Coverage End Date Medicare National Govt Svcs Inc [address] [place] [address] [id number] Leonardo Pang Self - patient is the insured [employer] Blue [employer] [address] [place] [address] [phone] [id number] Leonardo Pang Self - patient is the insured Medical (General) History Medical History History ICD Code osteoporosis hypertension diabetes mellitus back, hip, knee pain Arthritis Cholesterol Surgical History Surgery Date(Month/Year) hip surgery 119/1996 cocculer ear implant 12/2013 colonoscopy 05/2017 left knee replacement 12/27 Hospitalization History Reason Date(Month/Year) [facility]- Les[facility] foot 08/28/23 [facility] for a-fib 10/23/19 12
--- OUTSIDE RECORDS SUMMARY | 2024-04-02 18:35 | XMS_ITS ---
Author Organization [facility] Address [address] [place] [address] Care Team Providers Care Etymology Professor Name Role Phone Darien Bruner MD Primary Care Provider Unavailrhiannon Leon Ronel Unavailable [phone] Encounters Encounter Location Date Provider Diagnosis [address] [address] 02/23/2024 Ronel Leon Plan Of Treatment Next Appt Details Provider Name:Ronel Leon , 04/19/2024 10:15:00 AM, [address] [place], [address], Progress Notes * Leonardo GRIFFINDOB:1950 (74 yo M)Acc No.[id number]:02/23/2024 Progress Note Patient:?Leonardo GRIFFIN Provider:?Ronel Leon DPM :1950???Age:73 Y???Sex:Male En e:02/23/2024 Address:[address] [place] [address] [place], [id number] Pcp:Darien Bruner MD Subjective: * Chief Complaints: * ??? * Medical History:? Objective: * Vitals:? Assessment: Plan: * Treatment: * Images: * The named appointment provid er may or may not be the originator of this progress note, and it is not deemed complete until electronically signed by the appointment provider. Sign off status: Pending * Provider:?Ronel Leon DPM Date:?2023 Generated for René temple/Melissa/Patel on:?04/02/2024 06:35 PM EST
--- OUTSIDE RECORDS SUMMARY | 2024-04-02 18:36 | XMS_ITS | Patient Health Record ---
Author Organization [facility] Address [address] [place] [address] Care Team Providers Care Temp Recruiter Name Role Phone Dairen Bruner MD Primary Care Provider Griffin Alvarenga [...] Problem Colon cancer screening (Z12.11) Active confirmed 007153924 Problem [facility]DC (current) use of anticoagulants (Z79.01) Active confirmed 047892000 Problem Personal history of colonic polyps (Z86.010) Active confirmed 802225663 Problem Encounter for other preprocedural examination (Z01.818) Active confirmed 96672531 Problem [facility]DC (current) use of insulin (Z79.4) Active confirmed 220632462 PLAN OF TREATMENT Pending Test Test Name Order Date XR BARIUM ENEMA 11/18/2022 Future Test Test Name Order Date COLONOSCOPY 07/31/2011 COLONOSCOPY 02/07/2017 COLONOSCOPY 08/28/2022 Insurance Providers Payer Name Payer Address Payer Phone Subscriber Number Group Number Insured Name Patient Relationship to Insured Coverage Start Date Coverage End Date MEDICARE OF [place] [address] [place] [address] [phone] [id number] KAZ GRIFFIN Self - patient is the insured MED[employer] ATTN CLAIMS [address] [place] [address] [id number] KAZ GRIFFIN Self - patient is the [...]
--- OUTSIDE RECORDS SUMMARY | 2024-04-02 18:36 | XMS_ITS ---
Author Organization [facility] Address [address] [place] [address] Care Team Providers Care Oceanographer Geological Name Role Phone Darien Bruner MD Primary Care Provider Unavaila Griffin Torres Jr [phone] REASON FOR VISIT incomplete colonoscopy Encounters Encounter Location Date Provider Diagnosis [facility] [address] [place] [address] 11/01/2022 Griffin Donahue Jr PLAN OF TREATMENT No Information
--- OUTSIDE RECORDS SUMMARY | 2024-04-02 18:36 | XMS_ITS ---
Author Organization [facility] Address [address] [facility] [place] [address] Care Team Providers Care Human Projectile Name Role Phone Darien Bruner MD Primary Care Provider Unavaila ble Black, Ronel Unavailable [phone] Allergies Allergen (clinical drug ingredient) Drug/Non Drug [...] Problem Status W/U Status Risk Notes Problem 937484540 Pressure injury of right foot, unstageable (L89.890) Active confirmed Vital Signs Height 5ft8in in 10/23/2023 Weight 255 lbs 10/23/2023 BMI 38.77 kg/m2 10/23/2023 Blood pressure systolic 102 mm Hg 10/23/19 24 Blood pressure diastolic 69 mm Hg 024 Procedures Procedure Date Ordered Date Performed Result Body Sit e 89258-JIXZGYK NAIL, 6 OR MORE 10/23/2023 N/A 73202-BCQX SKIN LESIONS, OVER 4 10/23/2023 N/A Encounters Encounter Location Date Provider Diagnosis [facility] [address] [address] 10/23/2023 Ronel Leon Type 2 diabetes mellitus [...] Treatment Pending Test Test Name Order Date 42555-HZBDUFT NAIL, 6 OR MORE 10/23/2023 07796-OXWJ SKIN LESIONS, OVER 4 10/23/19 24 Next Appt Details Follow Up: 4 Months, Reason: Provider Name:Ronel Leon , 04/19/2024 10:15:00 AM, [address] [place] [address], [address], Procedure Notes * Category Sub-Category Detail Notes [...] as necessary. Patient chooses, no pharmaceutical tx (35689) Keratoma Treatment Parring or Cutting o f Benign Hyperkeratotic Lesion(s) 90323 ( >4 Lesions) - The Benign hyperkeratotic lesions, as described above were pared, and/or cut utilizing a sterile #15 blade, tissue nippers, and/or dremel Progress Notes * Leonardo GRIFFINDOB:1950 (73 yo M)Acc No.[id number]:10/23/2023 Progress Note Patient:?Leonardo Griffin Provider:?Ronel Leon DPM :1950???Age:73 Y???Sex:Male En e:10/23/2023 Address:[address] [place] [address] Road, [id number] Pcp:Darien Bruner MD Subjective: * Chief Complaints: [...] knee replacement 12/27 * Hospitalization/Major Diagno stic Procedure:?[facility] for a[facility]fib 10/23/2011[facility]- [facility] 08/28/23 [...] ?Marital status: . ?Occupation: retired- Disabled before fdc. * Medications:?TakingPenecilli n metOLazone Vitamin D Furosemide [...] 2.?Type 2 diabetes mellitus with diabetic polyneuropathy?Procedure: 21150-RETW SKIN LESIONS, OVER 4 * Procedures:?Debride Nail 6-10:?Nail debridement?Nail debridement performed extensively to reduce/remove overall nail length and girth, subungual debris, and necrotic tissue, by manual and electrical means with use of a nail nipper and/or dremel, to more viable healthy nail plate or bed tissue 6-10. Silver nitrate used for any petechial bleeding as necessary. Patient chooses, no pharmaceutical tx (63232).?Keratoma Treatment:?Parring or Cutting of Benign Hyperkeratotic Lesion(s)?16276 ( >4 Lesions) - The Benign hyperkeratotic lesions, as described above were pared, and/or cut utilizing a sterile #15 blade, tissue nippers, and/or dremel.? * Procedure Codes:?59519 DEBRI DE NAIL, 6 OR MORE, Modifiers: XS 35031 TRIM SKIN LESIONS, OVER 4, Modifiers: XS [...] for René temple/Melissa/Patel on:?04/02/2024 06:35 PM EST History and Physical Notes * HPI [...] Eye Exam:: no retin opathy Vascular DP PULSES (B): 1/4, B/L PT PULSES (B): 2/4, B/L EDEMA (C): 2/4 , B/L SALVADOR'S SIGN: absent, B/L PALPABLE CORDS: absent, B/L PIGMENTATION: hemosiderin depositi on B/L Nails NAILS are: elongated,overgr own,dystrophic,greater than 3mm thick,discolored and friable with crumbly malodorous subungual debris, with dull to no pain on palpation due to neuropathy, 1-5 right, , TA, T1, T3, T4
[2024-04-02 18:37] LABS: MANUAL DIFF FLAG NO
[2024-04-02 18:43] LABS: Basophils Percent Auto 0.2 % (0-2); Eosinophils Absolute Auto 0.4 X10*3/uL (0.0-0.4); Eosinophils Percent Auto 4.4 % (0-4); Hematocrit 35.2 % (42.0-52.0); Hemoglobin 11.6 g/dl (14.0-18.0); Imm Gran Abs Auto 0.04 X10*3/uL (0.00-0.03); Imm Gran Pct Auto 0.5 % (0.0-0.4); Lymphocytes Absolute Auto 1.4 X10*3/uL (1.2-4.9); Lymphocytes Percent Auto 16.9 % (20-40); Mean Corpuscular Hemoglobin 31.4 pg (27.0-33.0); Mean Corpuscular Volume 95.4 fL (80.0-98.0); Mean Platelet Volume 10.1 fL (9.4-12.4); Monocytes Absolute Auto 1.1 X10*3/uL (0.1-1.2); Monocytes Percent Auto 13.3 % (2-11); Neutrophils Absolute Auto 5.4 x10*3/uL (2.0-8.3); Neutrophils Percent Auto 64.7 % (45-73); Platelet Count 160 X10*3/uL (160-400); Red Blood Count 3.69 X10*6/uL (4.60-5.80); Red Cell Distribution Width 13.8 % (11.0-16.0); White Blood Count 8.4 X10*3/uL (4.8-10.8)
[2024-04-02 18:58] LABS: Albumin Level 3.5 g/dL (3.5-5.0); Anion Gap 14 (12-20); Aspartate Amino Transferase 21 U/L (5-37); Bilirubin Total 0.3 mg/dL (0.0-1.0); Blood Urea Nitrogen 19 mg/dL (9-16); Calcium 8.9 mg/dL (8.4-10.2); Carbon Dioxide 27 mmol/L (22-29); Chloride 104 mmol/L (96-108); Creatinine Clr Calc Pharmacy 88.5; Estimated Glomerular Filt Rate > 60; Glucose Random 175 mg/dL (60-115); Potassium 4.2 mmol/L (3.3-5.1); Sodium 141 mmol/L (135-145); Total Protein 6.9 g/dL (6.5-8.0)
[2024-04-02 19:09] LABS: Alanine Aminotransferase < 6 U/L (0-40); Alkaline Phosphatase 79 U/L (39-117)
[2024-04-02 21:56] VITALS: BP 124/71; PULSE 59; RESP 18; TEMP 36.7; O2SAT 98
--- NOTE | 2024-04-02 21:57 | MHC.EDTECH ---
Patient brought in from the waiting room,changed into hospital attire,vitals taken,call wong in reach
[2024-04-03] MEDS: Fluconazole 150 MG TABLET PO (00:14)
[2024-04-03 00:24] VITALS: BP 124/71; PULSE 59; RESP 18; TEMP 36.7; O2SAT 98
== END 2024-04-03 00:25 | disposition home or self-care (01) ==
PROVIDERS: Registered Nurse Emergency; Emergency Provider Emergency Medicine; PCP Internal Medicine
DX: B37.2 Candidiasis of skin and nail (principal); Z79.899 Other long term (current) drug therapy
CPT/HCPCS: 36415; 80053; 85025; 99212; 99283

== ENCOUNTER 2024-04-08 09:15 | Outpatient (REF) | payer MEDICARE, SELFPAY ==
--- OUTSIDE RECORDS SUMMARY | 2024-04-08 12:49 | XMS_ITS ---
Author Organization [facility] Address [address] [place] [address] Care Team Providers Care Customs Director Name Role Phone Darien Bruner MD Primary Care Provider UnavailRonel Jimenez Unavailable [phone] Encounters Encounter Location Date Provider Diagnosis [address] [address] 02/23/2024 Ronel Leon Plan Of Treatment Next Appt Details Provider Name:Ronel Leon , 04/19/2024 10:15:00 AM, [address] [place], [address], Progress Notes * Leonardo GRIFFINDOB:1950 (74 yo M)Acc No.[id number]:02/23/2024 Progress Note Patient:?Leonardo GRIFFIN Provider:?Ronel Leon DPM :1950???Age:73 Y???Sex:Male En e:02/23/2024 Address:[address] [place] [address] [place], [id number] Pcp:Darien Bruner MD Subjective: * Chief Complaints: [...] Leon DPM Date:?2023 Generated for René temple/Melissa/Patel on:?04/08/2024 12:49 PM EST
--- OUTSIDE RECORDS SUMMARY | 2024-04-08 12:49 | XMS_ITS | Patient Health Record ---
Author Organization [facility] Address [address] [facility] [place] [address] Care Team Providers Care Hooker On Name Role Phone Darien Bruner MD Primary Care Provider Unavaila Ronel Reaves Unavailable [phone] Allergies Allergen (clinical drug ingredient) Drug/Non Drug [...] Problem Acquired hammer toe of right foot (5036288571516844) Other hammer toe(s) (acquired), right foot (M20.41) Active confirmed Problem Acquired hammer toe of left foot (9053422113186590) Other hammer toe(s) (acquired), left foot (M20.42) Active confirmed Problem Plantar wart (01567760) Plantar wart (B07.0) Active confirmed Problem Ulcer of toe (547842605) Non-pressure chronic ulcer of other part of left foot limited to breakdown of skin (L97.521) Active confirmed Problem Non-pressure chronic ulcer of other part of right foot limited to breakdown of skin (L97.511) Active confirmed Problem [id number] Hallux valgus (acquired), left foot (M20.12) Active confirmed Problem 687600562431476 Hallux valgus (acquired), right foot (M20.11) Active confirmed Problem Acquired hammer toe of right foot (9670327609843133) Other hammer toe(s) (acquired), right foot (M20.41) Active confirmed Problem Acquired hammer toe of left foot (3477212952201348) Other hammer toe(s) (acquired), left foot (M20.42) Active confirmed Problem Polyneuropathy due to type 2 diabetes mellitus (029789099) Type 2 diabetes mellitus with diabetic polyneuropathy (E11.42) Active confirmed Problem 67627375 Charcot foot due to diabetes mellitus (E11.610) Active confirmed Problem 39507091 Unsteady gait (R26.81) Active confirmed Problem 73375541 Charcot gait (R26.0) Active confirmed Problem Ulcer of toe of right foot (disorder) (33342524637416311 ) Skin ulcer of toe of right foot, limited to breakdown of skin (L97.511) Active confirmed Problem 157127444 Pressure injury of right foot, unstageable (L89.890) Active confirmed Problem Ulcer of toe of left foot (disorder) (34471456136754557 ) Skin ulcer of toe of left foot, limited to breakdown of skin (L97.521) Active confirmed Problem Stasis dermatitis (28652648) Stasis dermatitis (I87.2) Active confirmed Vital Signs Blood pressure diastolic 69 mm Hg 10/23/2023 Height 5ft8in in 10/23/2023 Blood pressure systolic 102 mm Hg 10/23/2023 Weight 255 lbs 10/23/2023 BMI 38.77 kg/m2 10/23/2023 Procedures Procedure Date Ordered Date Performed Result Body Sit e 27317-MMIKLIT NAIL, 6 OR MORE 06/19/2023 N/A 68379-Jtpt Destruction, 1-14 06/19/2023 N/A 37686-UHFZ SKIN LESIONS, OVER 4 06/19/2023 N/A 07315-OPZTHPL NAIL, 6 OR MORE 10/23/2023 N/A 51531-CEXK SKIN LESIONS, OVER 4 10/23/2023 N/A Encounters Encounter Location Date Provider Diagnosis [address] [address] 02/12/2024 Roneliban Leon [address] [address] 06/19/2023 Ronel Leon Type 2 diabetes mellitus with diabetic polyneuropathy E11.42 ; Tinea unguium B35.1 ; Plantar wart B07.0 ; Pain in right foot M79.671 ; Charcot gait R26.0 ; Edema, lower extremity R60.0 and Stasis dermatitis I87.[address] [address] 10/23/2023 Ronel Leon Type 2 diabetes mellitus [...] B07.0) 10/23/2023 Charcot gait (ICD-10 - R26.0) 10/23/2023 Pressure injury of right foot, unstageable (ICD-10 - L89.890) 06/19/2023 Pain in right foot (ICD-10 - M79.671) 06/19/2023 Charcot gait (ICD-10 - R26.0) 06/19/2023 Edema, lower extremity (ICD-10 - R60.0) 06/19/2023 Stasis dermatitis (ICD-10 - I87.2) Plan Of Treatment Pending Test Test Name Order Date Hemoglobin A1c 06/04/2018 13861-HYGOLNT NAIL, 6 OR MORE 10/23/2023 38285-NIOAKHF NAIL, 6 OR MORE 08/28/2017 47773-GBAVELP NAIL, 6 OR MORE 08/29/2016 37569-PFRHTNW NAIL, 6 OR MORE 12/28/2012 40394-OFLSMEH NAIL, 6 OR MORE 06/13/2022 16489-VZBORBF NAIL, 6 OR MORE 10/25/2021 59824-AFUKVEA NAIL, 6 OR MORE 02/07/2022 15562-HJXJUMK NAIL, 6 OR MORE 10/17/2022 11700-RDFXQVX NAIL, 6 OR MORE 02/17/2023 34387-OCOGQJF NAIL, 6 OR MORE 06/19/2023 69435-OBXVUGC NAIL, 6 OR MORE 02/06/2015 30635-IQQXOYU NAIL, 6 OR MORE 05/01/2015 06624-WXGIZYQ NAIL, 6 OR MORE 07/10/2015 98702-OEEXHXZ NAIL, 6 OR MORE 10/02/2015 41258-LFBKJBH NAIL, 6 OR MORE 12/14/2015 56739-SBCIIFQ NAIL, 6 OR MORE 02/22/2016 98382-VFJEAHD NAIL, 6 OR MORE 05/30/2016 86009-UCXFTVT NAIL, 6 OR MORE 11/28/2016 70682-ZUFCQSF NAIL, 6 OR MORE 02/27/2017 24994-KNDCWBI NAIL, 6 OR MORE 05/29/2017 22635-BFTJNYY NAIL, 6 OR MORE 11/27/2017 22827-MCPIFNZ NAIL, 6 OR MORE 03/12/2018 73945-QQQAVJK NAIL, 6 OR MORE 06/04/2018 57141-RMQNMDS NAIL, 6 OR MORE 07/12/2021 54882-TEHWMEM NAIL, 6 OR MORE 12/05/2010 80360-VQGNBNZ NAIL, 6 OR MORE 02/06/2011 28046-EVJSRQO NAIL, 6 OR MORE 04/22/2011 17377-TRZKBJD NAIL, 6 OR MORE 07/15/2011 04871-DESCEMY NAIL, 6 OR MORE 09/25/2011 77364-IUIXYRV NAIL, 6 OR MORE 10/28/2011 97323-BAYOSXW NAIL, 6 OR MORE 01/16/2012 67052-DSCFWUU NAIL, 6 OR MORE 04/08/2012 95075-HEEPAGF NAIL, 6 OR MORE 06/24/2012 51087-EYEBJPT NAIL, 6 OR MORE 09/23/2012 56927-GJNWSYD NAIL, 6 OR MORE 03/31/2013 94032-LSGCKIE NAIL, 6 OR MORE 06/14/2013 33604-WWPCGDG NAIL, 6 OR MORE 09/20/2013 72023-EFOXEEB NAIL, 6 OR MORE 12/22/2013 71159-JTJKCAG NAIL, 6 OR MORE 03/21/2014 22261-HLIOPQE NAIL, 6 OR MORE 06/20/2014 62205-WXOLIFL NAIL, 6 OR MORE 09/21/2014 29942-LSEAXUD NAIL, 6 OR MORE 11/30/2014 17432-Smus Destruction, 1-14 10/17/2022 18895-Obfa Destruction, 1-14 02/17/2023 11171-Kcyl Destruction, 1-14 06/13/2022 18713-Qtla Destruction, 1-14 06/19/2023 91055-Ogkhbsex Plate 08/29/2016 06040-Glaasfoa Plate 07/12/2021 65483-Jtpfahaw Plate 10/25/2021 24841-Pswqnztz Plate 05/29/2017 96857-Fpwoegwh Plate 11/30/2014 05502-Lpodemdj Plate 06/14/2013 17529-Upzfmymi Plate 09/21/2014 70166-Zkvfcbgv Plate 06/20/2014 17292-Lbjiylha Plate 03/21/2014 49810-Ynccsasb Plate 12/22/2013 41601-Rauxuavf Plate 09/20/2013 05379- Debride <25 sq cm 09/20/2013 08557- Debride <25 sq cm 06/14/2013 58825- Debride <25 sq cm 12/22/2013 61402- Debride <25 sq cm 03/21/2014 77935- Debride <25 sq cm 09/21/2014 66818- Debride <25 sq cm 06/20/2014 95732- Debride <25 sq cm 03/31/2013 55436- Debride <25 sq cm 09/23/2012 85624- Debride <25 sq cm 06/24/2012 39123- Debride <25 sq cm 04/08/2012 03019- Debride <25 sq cm 01/16/2012 26011- Debride <25 sq cm 10/28/2011 84933- Debride <25 sq cm 09/02/2011 80532- Debride <25 sq cm 09/25/2011 62991- Debride <25 sq cm 12/26/2010 10518- Debride <25 sq cm 02/27/2017 71264- Debride <25 sq cm 05/30/2016 08431- Debride <25 sq cm 02/22/2016 85816- Debride <25 sq cm 12/14/2015 57134- Debride <25 sq cm 10/06/2014 29778- Debride <25 sq cm 10/02/2015 38921- Debride <25 sq cm 10/17/2022 56468- Debride <25 sq cm 10/25/2021 32921- Debride <25 sq cm 02/07/2022 28824- Debride <25 sq cm 12/28/2012 62566- Debride <25 sq cm 10/12/2015 92377-ZVFDQGM SKIN/TISSUE 03/12/2018 19244-UTOWUHU SKIN/TISSUE 06/04/2018 52378-MXUTHFL SKIN/TISSUE 11/27/2011 78838-WSTIZMM SKIN/TISSUE 12/11/2011 30452-ORVGAWK SKIN/TISSUE 10/06/2014 57683 I&D ABSCESS- SIMPLE,SINGLE 015 53577 I&D ABSCESS- SIMPLE,SINGLE 015 25103 I&D ABSCESS- SIMPLE,SINGLE 011 44380-DHEY SKIN LESIONS, OVER 4 12/06/19 11 18934-SOGI SKIN LESIONS, OVER 4 02/07/20 11 27203-SDPI SKIN LESIONS, OVER 4 07/15/19 12 50986-NJQK SKIN LESIONS, OVER 4 04/22/19 12 38896-SBDX SKIN LESIONS, OVER 4 09/25/19 12 93298-EOSD SKIN LESIONS, OVER 4 10/28/19 12 68579-PBFW SKIN LESIONS, OVER 4 09/24/19 13 01219-KDHN SKIN LESIONS, OVER 4 03/31/19 14 79858-IWUV SKIN LESIONS, OVER 4 01/16/20 12 24858-UDNW SKIN LESIONS, OVER 4 04/08/19 13 62616-EGGR SKIN LESIONS, OVER 4 06/25/19 13 79983-QQQP SKIN LESIONS, OVER 4 12/01/19 15 34794-CBCF SKIN LESIONS, OVER 4 02/07/20 15 76547-EOML SKIN LESIONS, OVER 4 09/22/19 15 48994-YSAG SKIN LESIONS, OVER 4 06/21/19 15 54831-UCIO SKIN LESIONS, OVER 4 03/21/19 15 77770-HQET SKIN LESIONS, OVER 4 12/23/19 14 34141-WVOO SKIN LESIONS, OVER 4 06/15/19 14 19611-XPJC SKIN LESIONS, OVER 4 09/21/19 14 65268-IJAJ SKIN LESIONS, OVER 4 06/05/19 19 44451-CEBC SKIN LESIONS, OVER 4 02/28/20 17 80646-FKSM SKIN LESIONS, OVER 4 05/30/19 18 66686-UVBY SKIN LESIONS, OVER 4 11/28/19 18 28545-CRYR SKIN LESIONS, OVER 4 03/12/19 19 34047-SAIR SKIN LESIONS, OVER 4 10/02/19 16 77438-ETCE SKIN LESIONS, OVER 4 07/10/19 16 12179-MVUD SKIN LESIONS, OVER 4 05/01/19 16 84118-RWRP SKIN LESIONS, OVER 4 12/14/19 16 74526-YEDP SKIN LESIONS, OVER 4 02/22/20 16 70748-YZIW SKIN LESIONS, OVER 4 05/31/19 17 11493-BLNJ SKIN LESIONS, OVER 4 11/29/19 17 06820-NPQU SKIN LESIONS, OVER 4 08/29/19 18 81340-VVOO SKIN LESIONS, OVER 4 12/29/19 13 50700-HTWR SKIN LESIONS, OVER 4 06/14/19 23 08121-NFXC SKIN LESIONS, OVER 4 10/18/19 23 27579-AMAJ SKIN LESIONS, OVER 4 02/18/20 23 45012-EOSD SKIN LESIONS, OVER 4 10/23/19 24 69039-UQEU SKIN LESIONS, OVER 4 06/19/19 24 53729-UZRE SKIN LESIONS, 2 TO 4 02/08/20 22 11018-PXFU SKIN LESIONS, 2 TO 4 12/29/19 13 53444-PJTB SKIN LESIONS, 2 TO 4 08/30/19 17 06479-GAOR SKIN LESIONS, 2 TO 4 10/26/19 22 03807-OJER SKIN LESIONS, 2 TO 4 07/13/19 22 77064-KXAP SKIN LESIONS, 2 TO 4 06/15/19 14 82880-LXXA SKIN LESIONS, 2 TO 4 12/23/19 14 48477-VKBF SKIN LESIONS, 2 TO 4 03/21/19 15 83804-LHQY SKIN LESIONS, 2 TO 4 06/21/19 15 38238-LYPK SKIN LESIONS, 2 TO 4 03/31/19 14 78451-GOTJ SKIN LESIONS, 2 TO 4 09/24/19 13 84921-Aujd. Subungual Hematoma 2 04590-Iczx. Subungual Hematoma 2 Next Appt Details Provider Name:Ronel Leon , 04/19/2024 10:15:00 AM, [address] [place], [address], Insurance Providers Payer Name Payer Address Payer Phone Subscriber Number Group Number Insured Name Patient Relationship to Insured Coverage Start Date Coverage End Date Medicare National Govt Sv[employer] [address] [place] [address] [id number] Leonardo Pang Self - patient is the insured [employer] [address] [place] [address] [phone] [id number] Leonardo Pang Self - patient is the insured Medical (General) History Medical History History ICD Code osteoporosis hypertension diabetes mellitus back, hip, knee pain Arthritis Cholesterol Surgical History Surgery Date(Month/Year) hip surgery 119/1996 cocculer ear implant 12/2013 colonoscopy 05/2017 left knee replacement 12/27 Hospitalization History Reason Date(Month/Year) [facility]- Lesion on foot 08/28/23 [facility] for a-fib 10/23/19 12
--- OUTSIDE RECORDS SUMMARY | 2024-04-08 12:49 | XMS_ITS ---
Author Organization [facility] Address [address] [place] [address] Care Team Providers Care Lead Portfolio Manager Name Role Phone Darien Bruner MD Primary Care Provider Unavaila Griffin Torres Jr Unavailable [phone] REASON FOR VISIT screening Encounters Encounter Location Date Provider Diagnosis [facility] [address] [place] [id number] 11/01/2022 Griffin Donahue Jr Colon cancer screening Z12.11 ASSESSMENTS Encounter Date Diagnosis Assessment Notes Treatment Notes Treatment Clinical Notes 11/01/2022 Colon cancer screening (ICD-10 - Z12.11) PLAN OF TREATMENT No Information
--- OUTSIDE RECORDS SUMMARY | 2024-04-08 12:49 | XMS_ITS | Continuity of Care Document ---
Author Organization [facility] Address [address] [place] [address]- Care Team Providers Care Candy Cutter Machine Name Role Phone Darien Bruner MD Primary Care Physician [phone] [id number]/08/24 - 04/07/[address] [address] Attending Physician: Jamar Plascencia Admitting Physician: Jamar Plascencia Referring Physician: trJamar Encounter Type: Triage Allergies, Adverse Reactions, Alerts Substance Criticality Severity Reaction Reaction Severity Status penicillins Unable to assess criticality Persistent Severe anaphylaxis Active Immunizations Given and Recorded Vaccine Date Status Refusal Reason SARS-CoV-2 (COVID-19) mRNA BNT-162b2 vac 06/08/20 Given SARS-CoV-2 (COVID-19) mRNA BNT-162b2 vac 05/18/20 Given Medications Centrum By Mouth, Daily, 0 Refills, Maintenance, 01/08/24 7:33:00 AM EDT, Partial fill upon patient requestif the prescription is for a schedule II opioid drug. Start Date: 01/08/24 Status: Ordered Repeat number: 1 Coreg By Mouth, 2 times a day, Maintenance, 06/15/13 8:11:06 AM EDT Start Date: 06/15/13 Status: Ordered Repeat number: 1 Coumadin Tablet By Mouth, Daily, 0 Refills, Maintenance, 01/08/24 7:31:00 AM EDT Start Date: 01/08/24 Status: Ordered Repeat number: 1 Ferrous Sulfate ER Refills 0, Maintenance, 01/08/24 7:33:00 AM EDT, Partial fill upon patient request if the prescription is for a schedule II opioid drug. Start Date: 01/08/24 Status: Ordered Repeat number: 1 Flomax 0.4 mg oral capsule By Mouth, # 30 capsule, Refills 0, Maintenance, 01/08/24 7:25:00 AM EDT, Partial fill upon patient request if the prescription is for a schedule II opioid drug. Start Date: 01/08/24 Status: Ordered Quantity: 30.0 Unit: capsule Repeat number: 1 Furosemide 0 Refills, Maintenance, 01/08/24 7:27:00 AM EDT, Partial fill upon patient request if the prescription is for a schedule II opioid drug. Start Date: 01/08/24 Status: Ordered Repeat number: 1 glipizide 2.5 mg oral tablet, extended release 2 tablet = 5 mg, By Mouth, Daily in AM, 0 Refills, Maintenance, 07/17/10 1:35:32 PM EDT Start Date: 07/17/10 Status: Ordered Repeat number: 1 glipizide 2.5 mg oral tablet, extended release 3 tablet = 7.5 mg, By Mouth, Daily at bedtime, 0 Refills, Maintenance, 07/17/10 1:36:01 PM EDT Start Date: 07/17/10 Status: Ordered Repeat number: 1 metformin 500 mg oral tablet 1 tablet = 500 mg, By Mouth, Daily, 0 Refills, Maintenance, 07/17/10 1:35:02 PM EDT Start Date: 07/17/10 Status: Ordered Repeat number: 1 metolazone 5 mg oral tablet 5 mg, 1, tablet, By Mouth, Every week, Refills 0, Maintenance, 01/08/24 7:30:00 AM EDT, Partial fill upon patient request if the prescription is for a schedule II opioid drug. Start Date: 01/08/24 Status: Ordered Repeat number: 1 Oxycodone 5mg/Acetaminophen 325mg Tablet 1, tablet, By Mouth, Every 4 hours, PRN, tablet, Maintenance, Pain, 07/17/10 1:36:56 PM EDT Start Date: 07/17/10 Status: Ordered Repeat number: 1 pravastatin 80 mg oral tablet 1 tablet, By Mouth, Daily, # 30 tablet, 0 Refills, Maintenance, 5/10/11 1:34:54 PM EDT, Tablet Start Date: 07/17/10 Status: Ordered Quantity: 30.0 Unit: tablet Repeat number: 1 Vital-D oral tablet 1 tablet, By Mouth, Daily, # 100 tablet, 0 Refills, Maintenance, 01/08/24 7:33:00 AM EDT, Tablet, Partial fill upon patient request if the prescription is for a schedule II opioid drug. Start Date: 01/08/24 Status: Ordered Quantity: 100.0 Unit: tablet Repeat number: 1 Problem List Condition Confirmation Course Effective Dates Status Health St atus Informant Arthritis Confirmed Active Afib Confirmed Active HTN (hypertension) Confirmed Active Severe obesity (BMI 35.0-39.9) with comorbidity Confirmed Active DM w/o complication type II Confirmed Active Patient Care team information Care Team Personnel Name: Darien Bruner MD Position: [facility] Outreach Member Role: PCP Address: [address] [place] [address] [place] [address] Telecom: Care Team Related Persons Name: RODERICK GRIFFIN Name: RODERICK GRIFFIN Insurance Providers Guarantor name: KAZ GRIFFIN Health Plan Information #: 1 Payer: MEDICARE PART B OUTPT Member Number: NA Policy Number: NA Group Number: NA Health Plan Information #: 2 Payer: MEDEX Member Number: NA Policy Number: NA Group Number: NA
--- OUTSIDE RECORDS SUMMARY | 2024-04-08 12:49 | XMS_ITS ---
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) Active confirmed Vital Signs Blood pressure systolic 102 mm Hg 10/23/19 24 Blood pressure diastolic 69 mm Hg 024 Height 5ft8in in 10/23/2023 Weight 255 lbs 10/23/2023 BMI 38.77 kg/m2 10/23/2023 Procedures Procedure Date Ordered Date Performed Result Body Sit e 17874-QORMBQL NAIL, 6 OR MORE 10/23/2023 N/A 95696-JTSG SKIN LESIONS, OVER 4 10/23/2023 N/A Encounters Encounter Location Date Provider Diagnosis [facility] [address] [address] 10/23/2023 Ronel Leon Type 2 diabetes mellitus [...] Treatment Pending Test Test Name Order Date 32064-HDGBPJE NAIL, 6 OR MORE 10/23/2023 74761-LFWO SKIN LESIONS, OVER 4 10/23/19 24 Next Appt Details Follow Up: 4 Months, Reason: Provider Name:Ronel Leon , 04/19/2024 10:15:00 AM, [address] [place] [address], [phone], Procedure Notes * Category Sub-Category Detail Notes [...] as necessary. Patient chooses, no pharmaceutical tx (14277) Keratoma Treatment Parring or Cutting o f Benign Hyperkeratotic Lesion(s) 69723 ( >4 Lesions) - The Benign hyperkeratotic lesions, as described above were pared, and/or cut utilizing a sterile #15 blade, tissue nippers, and/or dremel Progress Notes * Leonardo GRIFFINDOB:1950 (73 yo M)Acc No.[id number]:10/23/2023 Progress Note Patient:?Leonardo Grififn Provider:?Ronel Leon DPM :1950???Age:73 Y???Sex:Male En e:10/23/2023 Address:[address] [place] [address] Road, [phone] Pcp:Darien Bruner MD Subjective: * Chief Complaints: [...] knee replacement 12/27 * Hospitalization/Major Diagno stic Procedure:?[facility] for [facility]fib 10/23/2011[facility]- [facility] 08/28/23 [...] ?Marital status: . ?Occupation: retired- Disabled before [employer]. * Medications:?TakingPenecilli n metOLazone Vitamin D Furosemide [...] 2.?Type 2 diabetes mellitus with diabetic polyneuropathy?Procedure: 84765-MRZT SKIN LESIONS, OVER 4 * Procedures:?Debride Nail 6-10:?Nail debridement?Nail debridement performed extensively to reduce/remove overall nail length and girth, subungual debris, and necrotic tissue, by manual and electrical means with use of a nail nipper and/or dremel, to more viable healthy nail plate or bed tissue 6-10. Silver nitrate used for any petechial bleeding as necessary. Patient chooses, no pharmaceutical tx (18752).?Keratoma Treatment:?Parring or Cutting of Benign Hyperkeratotic Lesion(s)?84275 ( >4 Lesions) - The Benign hyperkeratotic lesions, as described above were pared, and/or cut utilizing a sterile #15 blade, tissue nippers, and/or dremel.? * Procedure Codes:?62440 DEBRI DE NAIL, 6 OR MORE, Modifiers: XS 82606 TRIM SKIN LESIONS, OVER 4, Modifiers: XS [...] for René temple/Melissa/Patel on:?04/08/2024 12:49 PM EST History and Physical Notes * [...]
--- OUTSIDE RECORDS SUMMARY | 2024-04-08 12:49 | XMS_ITS | Continuity of Care Document ---
Author Organization [facility] Address [address] [place] [address] Care Team Providers Care Brand Engineer Name Role Phone Darien Bruner MD Primary Care Physician [phone] [id number] Date[facility] - 04/07/[address] [address] Attending Physician: Darien Bruner MD Admitting Physician: Darien Bruner MD Encounter Type: Pre-OutPatient One Time Allergies, Adverse Reactions, Alerts Substance Criticality Severity [...] Daily, # 30 tablet, 0 Refills, Maintenance, 07/17/10 1:34:54 PM EDT, Tablet Start Date: 07/17/10 [...] Team Personnel Name: Darien Bruner MD Position: [facility] Outreach Member Role: PCP Address: [address] [place] [address] Darien Bruner MD [address] Telecom: Care Team Related Persons Name: RODERICK GRIFFIN Name: RODERICK GRIFFIN Insurance Providers Guarantor name: KAZ GRIFFIN Health Plan Information #: 2 Payer: MEDEX Member Number: [id number] Policy Number: NA Group Number: NA Health Plan Information #: 1 Payer: MEDICARE PART B OUTPT Member Number: [id number] Policy Number: NA Group Number: NA
--- OUTSIDE RECORDS SUMMARY | 2024-04-08 12:49 | XMS_ITS | Data Portability ---
Author Organization [place] - [facility], Allergy Address [address] [address] Care Team Providers Care Iron Plastic Bullet Maker Name Role Phone EMMA THOMAS Primary Care Provider [phone] Assessment Encounter Date Assessment Date Assessment LastModified [...] Gastroeso phageal reflux disease without esophagit is 096064714 Active 2014 Gastro-eso phageal reflux disease without esophagiti s; Note: Date Diagnosed: 01/16/2015 10:07 AM (K21.9) Not Available [facility] 4 02:31:43 Sensorine ural hearing loss of bilateral ears 122308426 Active 2013 SNHL Bilaterall y; CMS Risk: low risk Note: Date Diagnosed: 12/10/2013 9:18 AM (389.18) Not Available [facility] 4 02:31:47 Deviated nasal septum 107951976 Active 2014 Septal Deviation; Note: Date Diagnosed: 08/05/2014 11:13 AM (470) ; Start Date : 08/05/2014 Deviated nasal septum; Note: Date Diagnosed: 01/16/2015 9:52 AM (J34.2) Not Available [facility] 4 02:31:48 Bilateral sensory hearing loss 483922987 Active 2013 Hearing loss: Sensory hearing loss, bilateral; Location: left Note: Date Diagnosed: 12/16/2013 11:26 AM (389.11) Not Available [facility] 4 02:31:45 Simple obesity 361344772 Active 2016 Other obesity due to excess calories; Note: Date Diagnosed: 10/09/2016 1:21 PM (E66.09) Not Available [facility] 4 02:31:33 Postopera tive follow-up visit Active 2013 Post op; Note: Date Diagnosed: 12/16/2013 11:26 AM (V67.00) Not Available [facility] 4 02:31:42 Hypertrop hy of nasal turbinate s 81879060 Active 2014 Nasal turbinate hypertroph y; Note: Date Diagnosed: 02/16/2014 12:31 PM (478.0) ; Start Date : 02/16/2014 Hypertrop hy of nasal turbinates ; Note: Date Diagnosed: 01/16/2015 9:52 AM (J34.3) Not Available [facility] 4 02:31:37 Obstructi ve sleep apnea syndrome 53722422 Active 2015 Obstructiv e sleep apnea (adult) (pediatric ); Note: Date Diagnosed: 05/04/2015 4:55 PM (G47.33) Not Available [facility] 4 02:31:48 Allergic rhinitis caused by pollen 30866356 Active 2013 Vasomotor rhinitis; Note: Date Diagnosed: 01/10/2014 2:23 PM (477.0) Not Available [facility] 4 02:31:46 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 [...] Name and Address Organization Details Recorded Time 17500 Product containin g penicilli n and antibioti c (product) medicatio n other Not available Not available 07/22/2023 78868 05 SNOMED React ion: Unkno wn; Not Available [facility] 4 00:23:22 Medications Name Sig Start Date Stop Date Status Note LastModified by Organization Details LastModified Time furosemid e 40 mg tablet active Medicati on ID: [id number] B rand Name: furosemi de Send Method: E-Prescr ibed Sub s Allowed: subs OK Medic ationGen ericName : furosemi de Not Available Not Available Not Available metolazon e 2.5 mg tablet active Not Available Not Available Not Available metformin 500 mg tablet 05/11 completed Medicati on ID: [id number] Br and Name: metformi n Send Method: [...] ous solution 05/11 completed Medicati on ID: [id number] D uration Value: 28 Brand Name: Lantus U-100 Insulin Send Method: E-Prescr ibed Sub s Allowed: subs OK Speci al Instruct ion: INJECT 10 UNITS SUBCUTAN EOUSLY AT BEDTIME DISCAR D VIAL AFTER 28 DAYS Medic ationGen ericName : Lantus U-100 Insulin Not Available Not Available Not Available digoxin 250 mcg (0.25 mg) tablet 05/11 completed Medicati on ID: [id number] Br and Name: digoxin Send Method: E-Prescr ibed Sub s Allowed: subs OK Medic ationGen ericName : digoxin Not Available Not Available Not Available omeprazol e 40 mg capsule,d elayed release active Medicati on ID: [id number] B rand Name: omeprazo le Send Method: E-Prescr ibed Sub s Allowed: subs OK Medic ationGen ericName : omeprazo le Not Available Not Available Not Available tramadol 50 mg tablet 05/11 completed Medicati on ID: [id number] Br and Name: tramadol Send Method: E-Prescr ibed Sub s Allowed: subs OK Medic ationGen ericName : tramadol Not Available Not Available Not Available warfarin 4 mg tablet active Not Available Not Available Not Available Nexium 20 mg capsule,d elayed release 1 capsule by mouth once a day 05/11 completed Medicati on ID: [id number] Br and Name: Nexium S end Method: [...] 0.4 mg capsule active Medicati on ID: [id number] B rand Name: tamsulos in Send Method: E-Prescr ibed Sub s Allowed: subs OK Medic ationGen ericName : tamsulos in Not Available Not Available Not Available glipizide ER 2.5 mg tablet, extended release 24 hr 05/11 completed Medicati on ID: [id number] Br and Name: glipizid e Send Method: E-Prescr ibed Sub s Allowed: subs OK Medic ationGen ericName : glipizid e Not Available Not Available Not Available warfarin 2 mg tablet active Medicati on ID: 405603 B rand Name: warfarin Send Method: E-Prescr ibed Sub s Allowed: subs OK Medic ationGen ericName : warfarin Not Available Not Available Not Available fluticaso ne propionat e 50 mcg/actua tion nasal spray,andres pension 05/11 completed Medicati on ID: [id number] D uration Value: 30 Brand Name: fluticas one propiona te Send Method: E-Prescr ibed Sub s Allowed: subs OK Speci al Instruct ion: USE 1 SPRAY IN EACH NOSTRIL TWICE A DAY Medi cationGe nericNam e: fluticas one propiona te Not Available Not Available Not Available metformin ER 500 mg tablet,ex tended release 24 hr active Medicati on ID: [id number] B rand Name: metformi n Send Method: E-Prescr ibed Sub s Allowed: subs OK Medic ationGen ericName : metformi n Not Available Not Available Not Available ipratropi um bromide 21 mcg (0.03 %) nasal spray Inhale 2 spray into both nostrils three times a day as directed 05/11 completed Medicati on ID: [id number] Br and Name: Jessica Send Method: E-Prescr [...] mcg tablet 05/11 completed Medicati on ID: [id number] Br and Name: Centrum Silver Ultra Men's Se nd Method: E-Prescr ibed Sub s Allowed: subs OK Medic ationGen ericName : Centrum Silver Ultra Men's Not Available Not Available Not Available Vitals Date Recorded Body height Body mass index (BMI) Body weight Provider Name and Address Organization Details Last Updated DateTime 08/14/2023 172.72 cm 38 kg/m2 430757.09 g Tevin Koch [place] - [facility] 08/14/2023 10:01:01 Social History None recorded. Functional Status None recorded. Mental Status None recorded. Family History Nothing Reported. Medical History No medical history recorded. Past Encounters Encounter ID Performer Location Encounter Start Date Encounter Closed Date Diagnosis/Indication Diagnosis SNOMED-CT Code Diagnosis ICD10 Code Diagnosis Note [id number] RAMYA ARNDT MD [facility] [address] [address] 08/14/2023 09:50:50 08/14/2023 10:16:30 Benign neoplasm of parotid gland 36426483 D11.0 Health Concerns Section Related Observation LastModified by Organization Detai ls LastModified Time None Recorded Concern Status LastModified by Organization Details LastModified Time None Recorded Advance Directives Directive None Recorded Payers Encounter Date Sequence Insurance Name Policy Number Policy Casarez Covered Member ID Casarez Member ID Guarantor Name 08/14/2023 2 [place] Leonardo Pang [id number] Leonardo Pang 08/14/2023 1 [place] [employer] Leonardo Pang [id number] Leonardo Pang Notes Date Note Type Note Provider Name and Address Organization Details Recorded Time 08/14/2023 text/html 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 compare with prior [...] cochlear implant with Dr Demetrio ARNDT MD [address] [place] [address], [address], [facility] - [facility] 08/14/2023 10:15:11
--- OUTSIDE RECORDS SUMMARY | 2024-04-08 12:49 | XMS_ITS ---
Author Organization [facility] Address [address] [place] [address] Care Team Providers Care Technical Support Director Name Role Phone Darien Bruner MD Primary Care Provider Unavaila Ronel Reaves Unavailable [phone] REASON FOR VISIT r/s 02/22 Encounters Encounter Location Date Provider Diagnosis [address] [address] 02/12/2024 Ronel Leon Plan Of Treatment Next Appt Details Provider Name:Ronel Larry Edward , 04/19/2024 10:15:00 AM, [address] [place], [address], Progress Notes * Leonardo GRIFFINDOB:1950 (73 yo M)Acc No.[id number]:02/12/2024 Patient:?Leonardo GRIFFIN :1950???Age:73 Y???Sex:Male Address:[address] [place] [address], [address] * true * Date:? Generated for Printi ng/Famargog/eTransmitting on:?04/08/2024 12:48 PM EST
--- OUTSIDE RECORDS SUMMARY | 2024-04-08 12:49 | XMS_ITS ---
Author Organization [facility] Address [address] [place] [address] Care Team Providers Care Remelt Worker Name Role Phone Darien Bruner MD Primary Care Provider UnavailGriffin Cheng Jr Unavailable REASON FOR VISIT Barium enema Encounters Encounter Location Date Provider Diagnosis [facility] [address] [place] [address] 11/18/2022 Griffin Donahue Jr Colon cancer screening Z12.11 ASSESSMENTS Encounter Date Diagnosis Assessment Notes Treatment Notes Treatment Clinical Notes 11/18/2022 Colon cancer screening (ICD-10 - Z12.11) PLAN OF TREATMENT Pending Test Test Name Order Date XR BARIUM ENEMA 11/18/2022
--- OUTSIDE RECORDS SUMMARY | 2024-04-08 12:49 | XMS_ITS | Clinical Summary ---
Author Organization [facility] Address [address] [place] [address] Care Team Providers Care Automotive Engineer Name Role Phone Darien Bruner MD Primary Care Provider [phone] Allergies Active Allergy Reactions Criticality Noted Date Comments Penicillins Unknown/Patient and Family Unable to Define Medium 02/10/2024 Medications Medication Sig Dispensed Refills Start Date End Date Status SUPPLY DME MISCIndications:Pain in right ankle and joints of right foot RT ANKLE / Foot [place] Boot Dx: Diabetic Neuropathy, RT Plantar foot Ulcer 1 each 02/10/2024 Active Encounters Date Type Department Care Team Description 02/10/2024 10:30 [place] [address] Ant Matos MD Pain in left ankle and joints of left foot (Primary Dx); Pain in right ankle and joints of right foot 02/10/2024 10:20 AM [place] [address] from Last 3 Months Social History Tobacco [...] was performed in office at [facility] and images reviewed by orthopedic provider. ??Any findings are documented within ambulatory encounter note on date of service. Ant Matos MD IMG DIAGNOSTIC IMAGI NG ORDERABLES OA from Last 3 Months Care Teams Automotive Engineer Relationship Specialty Start Date End Date Darien Bruner MD [address] [place] [address] [place] [address] PCP - General 01/19/24
--- OUTSIDE RECORDS SUMMARY | 2024-04-08 12:50 | XMS_ITS | Patient Health Record ---
Author Organization [facility] Address [address] [place] [address] Care Team Providers Care Red Hat Linux Engineer Name Role Phone Darien Bruner MD Primary Care Provider Griffin Alvarenga Jr Unavailable [phone] ALLERGIES Allergen (clinical drug ingredient) Drug/Non Drug [...] Problem Colon cancer screening (Z12.11) Active confirmed 581450670 Problem [facility] (current) use of anticoagulants (Z79.01) Active confirmed 327297192 Problem Personal history of colonic polyps (Z86.010) Active confirmed 738358943 Problem Encounter for other preprocedural examination (Z01.818) Active confirmed 76791382 Problem [facility] (current) use of insulin (Z79.4) Active confirmed 574511910 PLAN OF TREATMENT Pending Test Test Name Order Date XR BARIUM ENEMA 11/18/2022 Future Test Test Name Order Date COLONOSCOPY 07/31/2011 COLONOSCOPY 02/07/2017 COLONOSCOPY 08/28/2022 Insurance Providers Payer Name Payer Address Payer Phone Subscriber Number Group Number Insured Name Patient Relationship to Insured Coverage Start Date Coverage End Date MED[place]ARE OF [place] [address] [place] [address] [phone] [id number] KAZ GRIFFIN Self - patient is the insured MED[employer] ATTN CLAIMS [address] [place] [address] [phone] [id number] KAZ GRIFFIN Self - patient is the [...]
--- OUTSIDE RECORDS SUMMARY | 2024-04-08 12:50 | XMS_ITS ---
Author Organization [facility] Address [address] [place] [address] Care Team Providers Care Cycle Consultant Name Role Phone Darien Bruner MD Primary Care Provider Unavaila Griffin Torres Jr REASON FOR VISIT incomplete colonoscopy Encounters Encounter Location Date Provider Diagnosis [facility] [address] [place] [address] 11/01/2022 Griffin Donahue Jr PLAN OF TREATMENT No Information
[2024-04-08 12:57] LABS: MANUAL DIFF FLAG NO
[2024-04-08 13:05] LABS: Basophils Percent Auto 0.3 % (0-2); Eosinophils Absolute Auto 0.3 X10*3/uL (0.0-0.4); Eosinophils Percent Auto 4.3 % (0-4); Hematocrit 35.8 % (42.0-52.0); Hemoglobin 11.9 g/dl (14.0-18.0); Imm Gran Abs Auto 0.03 X10*3/uL (0.00-0.03); Imm Gran Pct Auto 0.4 % (0.0-0.4); Lymphocytes Absolute Auto 1.2 X10*3/uL (1.2-4.9); Lymphocytes Percent Auto 17.3 % (20-40); Mean Corpuscular HGB Conc 33.2 g/dl (31.0-36.0); Mean Corpuscular Hemoglobin 31.9 pg (27.0-33.0); Mean Platelet Volume 10.8 fL (9.4-12.4); Monocytes Absolute Auto 0.8 X10*3/uL (0.1-1.2); Monocytes Percent Auto 11.4 % (2-11); Neutrophils Absolute Auto 4.7 x10*3/uL (2.0-8.3); Neutrophils Percent Auto 66.3 % (45-73); Platelet Count 173 X10*3/uL (160-400); Red Blood Count 3.73 X10*6/uL (4.60-5.80); Red Cell Distribution Width 13.8 % (11.0-16.0)
[2024-04-08 13:28] LABS: Anion Gap 14 (12-20); Blood Urea Nitrogen 20 mg/dL (9-16); Carbon Dioxide 29 mmol/L (22-29); Chloride 104 mmol/L (96-108); Estimated Glomerular Filt Rate > 60; Glucose Random 100 mg/dL (60-115); Potassium 4.4 mmol/L (3.3-5.1); Sodium 143 mmol/L (135-145)
== END 2024-04-08 09:16 | disposition home or self-care (01) ==
LOC: HO.HMGCLNP 09:15
PROVIDERS: Visit Provider Internal Medicine
DX: R78.81 Bacteremia (principal); B96.1 Klebsiella pneumoniae [K. pneumoniae] as the cause of diseases classified elsewhere
CPT/HCPCS: 80048; 85025

== ENCOUNTER 2024-04-12 10:55 | Outpatient (REF) | payer MEDICARE, SELFPAY ==
--- OUTSIDE RECORDS SUMMARY | 2024-04-12 12:51 | XMS_ITS | Clinical Summary ---
Author Organization [facility] Address [address] [place] [address] Care Team Providers Care Terrazzo Mechanic Name Role Phone Darien Bruner MD Primary Care Provider [phone] Allergies Active Allergy Reactions Criticality Noted Date Comments Penicillins Unknown/Patient and Family Unable to Define Medium 02/10/2024 Medications Medication Sig Dispensed Refills Start Date End Date Status SUPPLY DME MISCIndications:Pain in right ankle and joints of right foot RT ANKLE / Foot [place] Boot Dx: Diabetic Neuropathy, RT Plantar foot Ulcer 1 each 02/10/2024 Active Encounters Date Type Department Care Team Description 02/10/2024 10:30 [place] [address] Ant Matos MD Pain in left ankle and joints of left foot (Primary Dx); Pain in right ankle and joints of right foot 02/10/2024 10:20 AM EST [place] [address] from Last 3 Months Social History Tobacco [...] was performed in office at [facility] and images reviewed by orthopedic provider. ??Any findings are documented within ambulatory encounter note on date of service. Ant Matos MD IMG DIAGNOSTIC IMAGI NG ORDERABLES OA from Last 3 Months Care Teams Terrazzo Mechanic Relationship Specialty Start Date End Date Darien Bruner MD [address] [place] [address] [place] [address] PCP - General 01/19/24
--- OUTSIDE RECORDS SUMMARY | 2024-04-12 12:51 | XMS_ITS | Data Portability ---
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 Name Role Phone EMMA THOMAS Primary Care Provider [phone] Assessment Encounter Date Assessment Date Assessment LastModified [...] Gastroeso phageal reflux disease without esophagit is 920270984 Active 2014 Gastro-eso phageal reflux disease without esophagiti s; Note: Date Diagnosed: 01/16/2015 10:07 AM (K21.9) Not Available [facility] 4 02:31:43 Sensorine ural hearing loss of bilateral ears 249382031 Active 2013 SNHL Bilaterall y; CMS Risk: low risk Note: Date Diagnosed: 12/10/2013 9:18 AM (389.18) Not Available [facility] 4 02:31:47 Deviated nasal septum 535213883 Active 2014 Septal Deviation; Note: Date Diagnosed: 08/05/2014 11:13 AM (470) ; Start Date : 08/05/2014 Deviated nasal septum; Note: Date Diagnosed: 01/16/2015 9:52 AM (J34.2) Not Available [facility] 4 02:31:48 Bilateral sensory hearing loss 393638865 Active 2013 Hearing loss: Sensory hearing loss, bilateral; Location: left Note: Date Diagnosed: 12/16/2013 11:26 AM (389.11) Not Available [facility] 4 02:31:45 Simple obesity 900518395 Active 2016 Other obesity due to excess calories; Note: Date Diagnosed: 10/09/2016 1:21 PM (E66.09) Not Available [facility] 4 02:31:33 Postopera tive follow-up visit Active 2013 Post op; Note: Date Diagnosed: 12/16/2013 11:26 AM (V67.00) Not Available [facility] 4 02:31:42 Hypertrop hy of nasal turbinate s 99448419 Active 2014 Nasal turbinate hypertroph y; Note: Date Diagnosed: 02/16/2014 12:31 PM (478.0) ; Start Date : 02/16/2014 Hypertrop hy of nasal turbinates ; Note: Date Diagnosed: 01/16/2015 9:52 AM (J34.3) Not Available [facility] 4 02:31:37 Obstructi ve sleep apnea syndrome 36237140 Active 2015 Obstructiv e sleep apnea (adult) (pediatric ); Note: Date Diagnosed: 05/04/2015 4:55 PM (G47.33) Not Available [facility] 4 02:31:48 Allergic rhinitis caused by pollen 61666256 Active 2013 Vasomotor rhinitis; Note: Date Diagnosed: 01/10/2014 2:23 PM (477.0) Not Available [facility] 4 02:31:46 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 4 10:08:47 Problem Notes None recorded. Procedures Surgical History None recorded. Imaging Results Imaging Date Name Status LastModified by [facility] Details LastModified Time 04/27/2021 imaging/diag nostic result completed Information not available 10/28/2023 21:36:47 06/01/2021 imaging/diag nostic result completed Information not available 10/28/2023 21:37:06 Procedure Notes None recorded. Medical Equipment None Reported. Allergies Allergen ID Allergen Name Allergen Category Reaction Reaction Severity Criticality Documentation Date Start Date Code Code System Note Provider Name and Address Organization Details Recorded Time 24505 Product containin g penicilli n and antibioti c (product) medicatio n other Not available Not available 07/22/2023 79985 05 SNOMED React ion: Unkno wn; Not Available [facility] 4 00:23:22 Medications Name Sig Start Date Stop Date Status Note LastModified by Organization Details LastModified Time furosemid e 40 mg tablet active Medicati on ID: 274126 B rand Name: furosemi de Send Method: E-Prescr ibed Sub s Allowed: subs OK Medic ationGen ericName : furosemi de Not Available Not Available Not Available metolazon e 2.5 mg tablet active Not Available Not Available Not Available metformin 500 mg tablet 05/11 completed Medicati on ID: [id number] Br and Name: metformi n Send Method: [...] ous solution 05/11 completed Medicati on ID: [id number] D uration Value: 28 Brand Name: Lantus U-100 Insulin Send Method: E-Prescr ibed Sub s Allowed: subs OK Speci al Instruct ion: INJECT 10 UNITS SUBCUTAN EOUSLY AT BEDTIME DISCAR D VIAL AFTER 28 DAYS Medic ationGen ericName : Lantus U-100 Insulin Not Available Not Available Not Available digoxin 250 mcg (0.25 mg) tablet 05/11 completed Medicati on ID: [id number] Br and Name: digoxin Send Method: E-Prescr ibed Sub s Allowed: subs OK Medic ationGen ericName : digoxin Not Available Not Available Not Available omeprazol e 40 mg capsule,d elayed release active Medicati on ID: [id number] B rand Name: omeprazo le Send Method: E-Prescr ibed Sub s Allowed: subs OK Medic ationGen ericName : omeprazo le Not Available Not Available Not Available tramadol 50 mg tablet 05/11 completed Medicati on ID: [id number] Br and Name: tramadol Send Method: E-Prescr ibed Sub s Allowed: subs OK Medic ationGen ericName : tramadol Not Available Not Available Not Available warfarin 4 mg tablet active Not Available Not Available Not Available Nexium 20 mg capsule,d elayed release 1 capsule by mouth once a day 05/11 completed Medicati on ID: [id number] Br and Name: Nexium S end Method: [...] 0.4 mg capsule active Medicati on ID: [id number] B rand Name: tamsulos in Send Method: E-Prescr ibed Sub s Allowed: subs OK Medic ationGen ericName : tamsulos in Not Available Not Available Not Available glipizide ER 2.5 mg tablet, extended release 24 hr 05/11 completed Medicati on ID: [id number] Br and Name: glipizid e Send Method: E-Prescr ibed Sub s Allowed: subs OK Medic ationGen ericName : glipizid e Not Available Not Available Not Available warfarin 2 mg tablet active Medicati on ID: [id number] B rand Name: warfarin Send Method: E-Prescr ibed Sub s Allowed: subs OK Medic ationGen ericName : warfarin Not Available Not Available Not Available fluticaso ne propionat e 50 mcg/actua tion nasal spray,andres pension 05/11 completed Medicati on ID: [id number] D uration Value: 30 Brand Name: fluticas one propiona te Send Method: E-Prescr ibed Sub s Allowed: subs OK Speci al Instruct ion: USE 1 SPRAY IN EACH NOSTRIL TWICE A DAY Medi cationGe nericNam e: fluticas one propiona te Not Available Not Available Not Available metformin ER 500 mg tablet,ex tended release 24 hr active Medicati on ID: [id number] B rand Name: metformi n Send Method: E-Prescr ibed Sub s Allowed: subs OK Medic ationGen ericName : metformi n Not Available Not Available Not Available ipratropi um bromide 21 mcg (0.03 %) nasal spray Inhale 2 spray into both nostrils three times a day as directed 05/11 completed Medicati on ID: [id number] Br and Name: Jessica Send Method: E-Prescr [...] mcg tablet 05/11 completed Medicati on ID: [id number] Br and Name: Centrum Silver Ultra Men's Se nd Method: E-Prescr ibed Sub s Allowed: subs OK Medic ationGen ericName : Centrum Silver Ultra Men's Not Available Not Available Not Available Vitals Date Recorded Body height Body mass index (BMI) Body weight Provider Name and Address Organization Details Last Updated DateTime 08/14/2023 172.72 cm 38 kg/m2 119859.09 g Tevin Koch [place] - [facility] 08/14/2023 10:01:01 Social History None recorded. Functional Status None recorded. Mental Status None recorded. Family History Nothing Reported. Medical History No medical history recorded. Past Encounters Encounter ID Performer Location Encounter Start Date Encounter Closed Date Diagnosis/Indication Diagnosis SNOMED-CT Code Diagnosis ICD10 Code Diagnosis Note [id number] RAMYA ARNDT MD [facility] [address] [address] 08/14/2023 09:50:50 08/14/2023 10:16:30 Benign neoplasm of parotid gland 93107616 D11.0 Health Concerns Section Related Observation LastModified by Organization Detai ls LastModified Time None Recorded Concern Status LastModified by Organization Details LastModified Time None Recorded Advance Directives Directive None Recorded Payers Encounter Date Sequence Insurance Name Policy Number Policy Casarez Covered Member ID Casarez Member ID Guarantor Name 08/14/2023 2 [place] Leonardo Pang [id number] Leonardo Pang 08/14/2023 1 [place] B[place] [employer] Leonardo Pang [id number] Leonardo Pang Notes Date Note Type Note Provider Name and Address Organization Details Recorded Time 08/14/2023 text/html 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 compare with prior [...] cochlear implant with Dr Demetrio ARNDT MD [address] [place] [address], [address], [facility] - [facility] 08/14/2023 10:15:11
[2024-04-12 13:27] LABS: MANUAL DIFF FLAG NO
[2024-04-12 13:40] LABS: Basophils Percent Auto 0.3 % (0-2); Eosinophils Absolute Auto 0.2 X10*3/uL (0.0-0.4); Eosinophils Percent Auto 3.2 % (0-4); Hemoglobin 12.5 g/dl (14.0-18.0); Imm Gran Abs Auto 0.03 X10*3/uL (0.00-0.03); Imm Gran Pct Auto 0.4 % (0.0-0.4); Lymphocytes Absolute Auto 1.1 X10*3/uL (1.2-4.9); Lymphocytes Percent Auto 15.3 % (20-40); Mean Corpuscular HGB Conc 33.8 g/dl (31.0-36.0); Mean Corpuscular Hemoglobin 32.1 pg (27.0-33.0); Mean Corpuscular Volume 94.9 fL (80.0-98.0); Mean Platelet Volume 10.9 fL (9.4-12.4); Monocytes Absolute Auto 0.7 X10*3/uL (0.1-1.2); Monocytes Percent Auto 8.9 % (2-11); Neutrophils Absolute Auto 5.3 x10*3/uL (2.0-8.3); Neutrophils Percent Auto 71.9 % (45-73); Platelet Count 177 X10*3/uL (160-400); Red Cell Distribution Width 13.6 % (11.0-16.0); White Blood Count 7.4 X10*3/uL (4.8-10.8)
[2024-04-12 14:52] LABS: Blood Urea Nitrogen 26 mg/dL (9-16); Estimated Glomerular Filt Rate > 60
== END 2024-04-12 10:56 | disposition home or self-care (01) ==
LOC: HO.HVNA 10:55
PROVIDERS: PCP Internal Medicine; Visit Provider Internal Medicine
DX: N39.0 Urinary tract infection, site not specified (principal); R78.81 Bacteremia; N10 Acute pyelonephritis
CPT/HCPCS: 36415; 82565; 84520; 85025

== ENCOUNTER → 2024-04-14 13:59 | Outpatient (BNVA) | payer MEDICARE, SELFPAY | PROVIDERS: PCP Internal Medicine; Visit Provider Internal Medicine | DX: R78.81 Bacteremia (principal); B95.61 Methicillin susceptible Staphylococcus aureus infection as the cause of diseases classified elsewhere | CPT/HCPCS: 99212 ==

== ENCOUNTER → 2024-04-16 12:03 | Outpatient (BNVA) | payer MEDICARE, SELFPAY | PROVIDERS: PCP Internal Medicine; Visit Provider Internal Medicine ==

== ENCOUNTER → 2024-04-23 10:04 | Outpatient (BNVA) | payer MEDICARE, SELFPAY | PROVIDERS: PCP Internal Medicine; Visit Provider Internal Medicine ==

== ENCOUNTER 2024-04-27 07:17 | Outpatient (REF) | payer MEDICARE, SELFPAY ==
--- OUTSIDE RECORDS SUMMARY | 2024-04-27 07:20 | XMS_ITS ---
[facility] Organization [facility] Address [address] [facility] [place] [address] Care Team Providers Care Aging Department Supervisor Name Role Phone Darien Bruner MD Primary Care Provider Unavaila ble Black, Ronel Unavailable [phone] Allergies Allergen (clinical drug ingredient) Drug/Non Drug Allergy documented on EMR Reaction Allergy Type Onset Date Status amoxicillin Amoxicillin Unknown Drug Allergy Act anneliese Penicillin Unknown Drug Allergy Active REASON FOR VISIT At Risk Footcare, open sore Medications Medication SIG (Take, Route, Frequency, Duration) Notes Start Date End Date Status Centrum Silver Activ e Pravastatin Sodium A ctive glipiZIDE Active Extra-Depth Diabetic Shoes with 3 Pair Custom heat-molded multi-density innersoles Active metFORMIN HCl Active Vitamin D Active metOLazone Active oxyCODONE-Acetaminop hen 5-325 MG 1 tablet as needed Orally every 6 hrs Active Furosemide 40 MG 1 tablet Orally Once a day for 30 day(s) Active Carvedilol 12.5 MG 1 tablet with food Orally Active zzzExtra Depth Orthopedic Shoes (1 Pair) with Customized Heat Molded Multidensity Innersoles (3 Pair) . . . Dx: NIDDM/Polyneuropathy (E11.42), Hammertoe Foot Deformity (M20.41,M20.42), Preulcerative Skin Lesion(s) (L85.1) for . 07/10/2015 Not-Taking Doxycycline Hyclate Not-Taking Aspir-81 Not-Taking Lantus SoloStar Not- Taking Penecillin Not-Takin g Clindamycin HCl 300 MG 1 capsule Orally every 8 hrs for 10 day(s) 10/06/2014 Not-Taking Melatonin Not-Taking traMADol HCl Not-Elvis ing Extra-Depth Diabetic Shoes with 3 Pair Custom heat-molded multi-density innersoles . for 1 year . Dx:hammertoes,Hallux valgus,pre ulcerative lesions for . 06/20/2014 Not-Taking Bactrim DS 800-160 MG 1 tablet Orally every 12 hrs for 10 day(s) 10/06/2014 Not-Taking Diltiazem HCl CR Not -Taking NexIUM Not-Taking Insulin 34UNITS 20-22 units per day before bed Not-Taking Digoxin Not-Taking Omeprazole 40 MG 1 capsule 30 minutes before morning meal Orally Once a day for 30 day(s) Not-Taking Compression Stockings 20-30mm Hg 1 pair wear daily for 30 days Active Iron 65 mg 1 tablet Orally Once a day Active Warfarin Sodium Acti ve Extra Depth Orthopedic Shoes (1 Pair) with Customized Heat Molded Multidensity Innersoles (3 Pair) as directed Dx: NIDDM/Polyneuropathy (E11.42), Hammertoe Foot Deformity (M20.41,M20.42), Preulcerative Skin Lesion(s) (L85.1 10/17/2022 Active Social History Tobacco Use: Social History Observation Description Date Details (start date - stop date) Never Smoker NA - NA Alcohol Screen Question Answer Notes Did you have a drink containing alcohol in the p ast year? No Points 0 Interpretation Negative Tobacco use other than smoking: Question Answer Notes Are you an other tobacco user? No Tobacco Control (Standard) Question Answer Notes Tobacco use: Nonsmoker Vital Signs Height 5ft8in in 04/19/2024 Weight 244 lbs 04/19/2024 BMI 37.1 kg/m2 04/19/2024 Blood pressure systolic 120 mm Hg 04/19/19 25 Blood pressure diastolic 60 mm Hg 025 Procedures Procedure Date Ordered Date Performed Result Body Sit e 87710-NGKYCWA NAIL, 6 OR MORE 04/19/2024 N/A 07774-RJKG SKIN LESIONS, OVER 4 04/19/2024 N/A Encounters Encounter Location Date Provider Diagnosis [facility] [address] [place] [address] 04/19/2024 Ronel Black Type 2 diabetes mellitus with diabetic polyneuropathy E11.42 ; Charcot foot due to diabetes mellitus E11.610 ; Tinea unguium B35.1 ; Charcot gait R26.0 ; Skin ulcer of toe of right foot, limited to breakdown of skin L97.511 and Subungual contusion of toe of left foot, initial encounter S90.222A Assessments Encounter Date Diagnosis (ICD Code) Assessment Notes Treatment Notes Treatment Clinical Notes Section Notes 04/19/2024 Type 2 diabetes mellitus with diabetic polyneuropathy (ICD-10 - E11.42) 04/19/2024 Charcot foot due to diabetes mellitus (ICD-10 - E11.610) 04/19/2024 Tinea unguium (ICD-10 - B35.1) 04/19/2024 Charcot gait (ICD-10 - R26.0) 04/19/2024 Skin ulcer of toe of right foot, limited to breakdown of skin (ICD-10 - L97.511) 04/19/2024 Subungual contusion of toe of left foot, initial encounter (ICD-10 - S90.222A) Plan Of Treatment Pending Test Test Name Order Date [id number]-JFMMCJD NAIL, 6 OR MORE 04/19/2024 80339-IBOJ SKIN LESIONS, OVER 4 04/19/19 25 Next Appt Details Follow Up: 4 Months, Reason: Provider Name:Ronel Leon , 07/29/2024 09:00:00 AM, [address] [place] [address], [phone], Procedure Notes * Category Sub-Category Detail Notes Debride Nail 6-10 Nail debridement Due to the cl inical pathology outlined in the exam findings, performance of this nail treatment is medically necessary as its management by an unskilled/untrained nonprofessional would put this patients foot and overall health at risk. Therefore, debridement to affected nail(s), as described in exam ( TA, T1, T3, T5, T8, T9 ), was performed exclusively by the physician of record to reduce/remove overall nail length, girth, thickness, subungual debris, and necrotic tissue, by manual and/or electrical means through the use of a nail nipper and/or dremel-type bark grinder, to a more viable healthy nail plate or bed tissue 6-10 nails in total. Silver nitrate was used for any petechial bleeding as necessary. Definitive antifungal treatment options, both pharmaceutical and surgical, have been reviewed and discussed with the patient. The patient solely prefers the use of intermittent/as needed professional debridement services for their nail condition and understands the need for additional periodic treatments to maintain effectiveness in symptomatic relief - 31864 Keratoma Treatment Parring or Cutting o f Benign Hyperkeratotic Lesion(s) (-57) More than 4 Lesions - Due to the at risk nature of the patients medical condition as documented in the exam findings, performance of this keratoderma treatment is medically necessary as its management by an unskilled/untrained nonprofessional would put this patients foot and overall health at risk. Therefore, the benign hyperkeratotic lesions, (6 ) in total, locations as stated and described in the exam ( Midfoot, left , SUB MTH (s), 1, B/L base of 3rd MET , plantar Heel(s) , B/L ), were pared, and/or cut utilizing a sterile 15 blade, tissue nippers, and/or power dremel instrumentation by the physician of record - 87991 Progress Notes * Leonardo GRIFFINDOB:1950 (74 yo M)Acc No.[id number]:04/19/2024 Progress Note Patient:?Leonardo GRIFFIN Provider:?Ronel Leon DPM :1950???Age:74 Y???Sex:Male En e:04/19/2024 Address:[address] [place], [place] [phone] Pcp:Darien Bruner MD Subjective: * Chief Complaints: * ???At Risk FootcareOpen sore * HPI: ???At Risk footcare:?Pt States Last PCP Visit:?Date?03/30/2024 ???Skin problems:?Pt States PCP Visit: ?DATE?03/30/2024 ?Location:?Midfoot , Bottom , Right, top 2,3 digit right.?Treatments:?Pt relates hospitalization end of September for open wound with infection. [facility] is coming to the house every other day for the bottom ot the?right foot- pt states almost healed.? * ROS:?General/Constitutional:?Nausea?denies.?Vomiting?denies.?Hunger Thirst?denies.?Loss appetite?denies.?Chills?denies.?Fatigue?denies.?Fever?denies.?Night Sweats?denies.?Unexplained weight loss?denies.?Ophthalmologic:?Blurred vision?denies.?Red eye?denies.?HEENTM:?Dentures?denies.?Dizziness?denies.?Glasses/contacts?admits.?Retinopathy?den ies.?Blurred/double vision?denies.?TMJ?denies.?Discharge/drainage?denies.?Implants?denies.?Hard of hearing admits.?Difficulty chewing/swallowing/speaking?denies.?Nose bleeds?denies.?Sore mouth?denies.?Swollen glands?denies.?Respiratory:?On O xygen?denies.?Pneumonia/pleurisy?denies.?Bronchitis?denies.?Emphysema?denies.?Co ughing?denies.?Cough blood?denies.?Shortness of breath?denies.?Wheezing?denies.?Cardiovascular:?Pacemaker?denies.?MVP?denies.?WPW?denies.?CHF?denies.?Heart attack?denies.?Septal defect?denies.?Rapid beat?denies.?Chest pain ?denies.?Atrial Fib.?denies.?Murmur/Palpitations?denies.?Gastrointestinal:?Hemorrhoids?denies.?Stomach/Abdominal pain?denies.?Dark blood stool?denies.?Irritable bowel ?denies.?Constipation?denies.?Diarrhea?denies.?Vomiting?denies.?Hematology:?Swelling?admits.?Bruising?denies.?Bleeding problem?denies.?Genitourinary:?Blood urine?denies.?Frequent/Painfu/urination/bladder control?denies.?Kidney stones?denies.?Infection (UTI)?denies.?Nephropathy?denies.?Musculoskeletal:?Hammertoes?admits.?Bunions?denies.?Scoliosis/kyphosis?denies.?Muscle cramps / walking?denies.?Generalized aches and pains?denies.?Weakness?denies.?Integ.:?Robles?denies.?Scars?denies.?Corns/calluses?, admits.?Ingrown nails?denies.?Painful nails?denies.?Rashes?denies.?Neurologic:?Difficulty sleeping?denies.?Bipolar?denies.?Brain disorder?denies.?Balance trouble?, a dmits.?Confusion?denies.?Fainting/blackouts?denies.?Headache?denies.?Tremors?den ies.? * Medical History:? * Surgical History:?hip surger y 1196/1997cocculer ear implant 12/2013colonoscopy 05/2017left knee replacement 12/27 * Hospitalization/Major Diagno stic Procedure:?[facility] for a-fib 10/23/2011[facility]- Lesion on foot 08/28/23 * Family History:?Mother: dece ased, diagnosed with Unspecified essential hypertension.?Father: , diagnosed with Diabetic - NIDDM, Unspecified essential hypertension.?Daughter(s): alive.?Siblings: .?Spouse: alive.?1 brother(s) , 3 sister(s) . 1 daughter(s) . .? * Social History:?Tobacco Use:?Tobacco use other than smoking?Are you an other tobacco user??No ?Tobacco Control (Standard)?Tobacco use:?Nonsmoker ???Drugs/Alcohol:?Drugs?Have you used drugs other than those for medical reasons in the past 12 months??No ?Alcohol Screen?Did you have a drink containing alcohol in the past year??No ?Points?0 ?Interpretation?Negative ???Miscellaneous:?Caffeine: yes, frequency:Occassionally coffee and soda. ?Children: yes. ?Exercise: no. ?Marital status: . 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 * Medications:?TakingmetOLazon e Vitamin D Furosemide 40 MG Tablet 1 tablet Orally Once a day oxyCODONE-Acetaminophen 5-325 MG Tablet 1 tablet as needed Orally every 6 hrs Carvedilol 12.5 MG Tablet 1 tablet with food Orally Centrum Silver glipiZIDE Pravastatin Sodium metFORMIN HCl Extra-Depth Diabetic Shoes with 3 Pair Custom heat-molded multi-density innersoles Warfarin Sodium Iron 65 mg 1 tablet Orally Once a day Extra Depth Orthopedic Shoes (1 Pair) with Customized Heat Molded Multidensity Innersoles (3 Pair) as directed Dx: NIDDM/Polyneuropathy (E11.42), Hammertoe Foot Deformity (M20.41,M20.42), Preulcerative Skin Lesion(s) (L85.1 Compression Stockings 20-30mm Hg closed toe- knee high 1 pair wear daily Taking metOLazone Taking Vitamin D Taking Furosemide 40 MG Tablet 1 tablet Orally Once a day Taking oxyCODONE-Acetaminophen 5-325 MG Tablet 1 tablet as needed Orally every 6 hrs Taking Carvedilol 12.5 MG Tablet 1 tablet with food Orally Taking Centrum Silver Taking glipiZIDE Taking Pravastatin Sodium Taking metFORMIN HCl Taking Extra-Depth Diabetic Shoes with 3 Pair Custom heat-molded multi-density innersoles Taking Warfarin Sodium Taking Iron 65 mg 1 tablet Orally Once a day Taking Extra Depth Orthopedic Shoes (1 Pair) with Customized Heat Molded Multidensity Innersoles (3 Pair) as directed Dx: NIDDM/Polyneuropathy (E11.42), Hammertoe Foot Deformity (M20.41,M20.42), Preulcerative Skin Lesion(s) (L85.1 Taking Compression Stockings 20-30mm Hg closed toe- knee high 1 pair wear daily Not-Taking/PRNPenecillin Diltiazem HCl CR Insulin 34UNITS , Notes to Pharmacist: 20-22 units per day before bedNexIUM Omeprazole 40 MG Capsule Delayed Release 1 capsule 30 minutes before morning meal Orally Once a day Digoxin traMADol HCl Melatonin Bactrim DS 800-160 MG Tablet 1 tablet Orally every 12 hrs Extra-Depth Diabetic Shoes with 3 Pair Custom heat-molded multi-density innersoles . . for 1 year . Dx:hammertoes,Hallux valgus,pre ulcerative lesions Clindamycin HCl 300 MG Capsule 1 capsule Orally every 8 hrs Doxycycline Hyclate zzzExtra Depth Orthopedic Shoes (1 Pair) with Customized Heat Molded Multidensity Innersoles (3 Pair) . . . . Dx: NIDDM/Polyneuropathy (E11.42), Hammertoe Foot Deformity (M20.41,M20.42), Preulcerative Skin Lesion(s) (L85.1) Bernice Tineo Aspir-81 Medication List reviewed and reconciled with the patientNot-Taking/PRN Penecillin Not-Taking/PRN Diltiazem HCl CR Not-Taking/PRN Insulin 34UNITS , Notes to Pharmacist: 20-22 units per day before bedNot-Taking/PRN NexIUM Not-Taking/PRN Omeprazole 40 MG Capsule Delayed Release 1 capsule 30 minutes before morning meal Orally Once a day Not-Taking/PRN Digoxin Not-Taking/PRN traMADol HCl Not- Taking/PRN Melatonin Not-Taking/PRN Bactrim DS 800-160 MG Tablet 1 tablet Orally every 12 hrs Not-Taking/PRN Extra-Depth Diabetic Shoes with 3 Pair Custom heat-molded multi-density innersoles . . for 1 year . Dx:hammertoes,Hallux valgus,pre ulcerative lesions Not-Taking/PRN Clindamycin HCl 300 MG Capsule 1 capsule Orally every 8 hrs Not-Taking/PRN Doxycycline Hyclate Not-Taking/PRN zzzExtra Depth Orthopedic Shoes (1 Pair) with Customized Heat Molded Multidensity Innersoles (3 Pair) . . . . Dx: NIDDM/Polyneuropathy (E11.42), Hammertoe Foot Deformity (M20.41,M20.42), Preulcerative Skin Lesion(s) (L85.1) Not-Taking/PRN Lantus SoloStar Not- Taking/PRN Aspir-81 Medication List reviewed and reconciled with the patient * Allergies:?AmoxicillinPenici llin: Allergyyes[Allergies Verified] Objective: * Vitals:?Ht: 5ft8in, Wt:244, BMI:37.1, Shoe size: 11W, BP:120/60mm Hg, BS: 135, Ht-cm: 172.72 cm, Wt-k.68 kg. * ???Past Orders: ???Lab:HEMOGLOBIN A1C (GLYCO HEMOGLOBIN) (Order Date - 03/10/2024) (Collection Date & Time - 03/10/2024 10:16 AM) ? Value Reference Range ?HEMOGLOBIN A1C % (HH) 6.7 * Examination: ???Ophthalmology Referral: ?DIABETES EYE EXAM?General Examination: ?GENERAL APPEARANCE:?Reveals a pleasant, alert, well nourished, well- developed, well hydrated individual, who demonstrates proper attention to hygiene/body habitus, and is in no acute distress, Pt serves as own historian for office visit today, Pt accompanied by, , who serves as, additional Historian, and/who is physically present in exam room at time of visit.?ORIENTED:?person, place, and time.?FOOT EXAM:?Footwear Evaluation?Neurological: ?SENSORY:?exam demonstrates. reduced vibration lower extremity, 5.07 monofilament test performed at plantar aspects of 5 varied sites per foot, shows sensation, reduced, B/L, reduced sharp/dull discrimination , Pt relates Cont. anesthesia , reduced proprioception sensation.?Vascular: ?DP PULSES (B):?1/4, B/L.?PT PULSES (B):?2/, B/L.?PIGMENTATION:?hemosiderin deposition B/L.?EDEMA (C):?2/4 , ?B/L.?SALVADOR'S SIGN:?absent, B/L.?PALPABLE CORDS:?absent, B/L.?Nails: ?NAILS are:?elongated,overgrown,dystrophic,greater than 3mm thick,discolored and friable with crumbly malodorous subungual debris, with dull to no pain on palpation due to neuropathy, TA, T1, T3, T5, T8, T9, There is evidence of no pain on palpation, and an area of subungual HEMORRAGHIC fluid with a pre-operative size measuring approximately ( 1-2 ) mm square T4.?Dermatologic: ?SKIN FINDINGS:?Skin exam reveals Keratotic lesion(s) located at, Midfoot, left , SUB MTH (s), 1, B/L base of 3rd MET , plantar?Heel(s) , B/L.?ULCER:?DSD intact right midfoot- dorsal , T7, T6, LOCATION, SIZE, 6mm X 4 mm X 2mm, BASE, granular, RIM, hyperkeratotic, UNDERMINING, absent, TRACKING, Full thickness breakdown of skin, DRAINAGE, serosanguineous, mild, NECROTIC TISSUE, loosely-adherent, yellow slough, MALODOR, absent, CALOR, absent, ERYTHEMA, absent, PAIN ON PALPATION, absent.?Orthopedic: ?GAIT ABNORMALITY:?Pronated, abducted angle and base of gate, B/L.?FOOT MORPHOLOGY:?(+) Charcot collapse/destruction noted at MTJ b/l.?DIGITAL DEFORMITIES:?Digital contracture, PIPJ, 2-5 right 2,4,5 left , incompl-reducible with WB, or to push-up test, no over, nor underlapping, Amputation T2.?FOOTWEAR:?, good condition, exhibit proper fit and accommodation for pedal deformities. OT were inspected and noted to be worn, but in good condition giving proper support at the present time.? Assessment: * Assessment: 1.?Type 2 diabetes mellitus with diabetic polyneuropathy - E11.42???2.?Charcot foot due to diabetes mellitus - E11.610 (Primary)???3.?Tinea unguium - B35.1???4.?Charcot gait - R26.0???5.?Skin ulcer of toe of right foot, limited to breakdown of skin - L97.511???6.?Subungual contusion of toe of left foot, initial encounter - S90.222A??? Plan: * Treatment: 2.?Tinea unguium?Procedure: [id number]-[id number] NAIL, 6 OR MORE * Procedures:?Debride Nail 6-10:?Nail debridement?Due to the clinical pathology outlined in the exam findings, performance of this nail treatment is medically necessary as its management by an unskilled/untrained nonprofessional would put this patients foot and overall health at risk. Therefore, debridement to affected nail(s), as described in exam ( TA, T1, T3, T5, T8, T9 ), was performed exclusively by the physician of record to reduce/remove overall nail length, girth, thickness, subungual debris, and necrotic tissue, by manual and/or electrical means through the use of a nail nipper and/or dremel-type bark grinder, to a more viable healthy nail plate or bed tissue 6-10 nails in total. Silver nitrate was used for any petechial bleeding as necessary. Definitive antifungal treatment options, both pharmaceutical and surgical, have been reviewed and discussed with the patient. The patient solely prefers the use of intermittent/as needed professional debridement services for their nail condition and understands the need for additional periodic treatments to maintain effectiveness in symptomatic relief - 84057.?Keratoma Treatment:?Parring or Cutting of Benign Hyperkeratotic Lesion(s)?(-57) More than 4 Lesions - Due to the at risk nature of the patients medical condition as documented in the exam findings, performance of this keratoderma treatment is medically necessary as its management by an unskilled/untrained nonprofessional would put this patients foot and overall health at risk. Therefore, the benign hyperkeratotic lesions, (6 ) in total, locations as stated and described in the exam ( Midfoot, left , SUB MTH (s), 1, B/L base of 3rd MET , plantar Heel(s) , B/L ), were pared, and/or cut utilizing a sterile 15 blade, tissue nippers, and/or power dremel instrumentation by the physician of record - 24963.? * Procedure Codes:?39946 DEBRI DE NAIL, 6 OR MORE, Modifiers: XS 76320 TRIM SKIN LESIONS, OVER 4, Modifiers: XS 3044F HG A1C LEVEL LT 7.0% * Preventive Medicine:? ??Counseling:?Discussion:?-13: Office or other [...] have encouraged the patient to call the office.?BioMech.:?I discussed the Pts foot biomechanics with them and how it relates to their problem.?Podiatric Counseling:?Discussed the contusion to the nail bed. Contusions are the result of trauma to the nail bed and occur more readily when patient is taking a blood thinner. Discussed possible auto nail avulsion. Due to lack of pain we deferred on performing either and incision and drainage or a nail removal.?Shoe Gear Counseling:?Due to present condition of previous prescribed Diabetic Shoes a new prescription is not warranted at this time..? * Follow Up:?4 Months * Images: * Sign off status: Completed true * Provider:?Ronel Leon DPM Date:?2024 Generated for René temple/Melissa/Patel on:?04/27/2024 07:20 AM EST History and Physical Notes * HPI (History of Present Illness) Category Sub-Category Detail Notes Category Not es Skin problems Location: Midfoot , Bottom , Right, top 2,3 digit right Treatments: Pt relates [facility] [place] end of September for open wound with infection. pt is presently being treated at [place] [place] and [facility] is coming to the house every other day for the bottom ot the right foot- pt states almost healed Pt States PCP Visit: DATE: 03/30/2024 At Risk footcare Pt States Last PCP Visit: Date: 5 Examination Category Sub-Category Detail Notes Category Not [...] SUB MTH (s), 1, B/L base of 3rd MET , plantar Heel(s) , B/L ULCER: DSD intact right mid foot- dorsal , T7, T6, LOCATION, SIZE, 6mm X 4 mm X 2mm, BASE, granular, RIM, hyperkeratotic, UNDERMINING, absent, TRACKING, Full thickness breakdown of skin, DRAINAGE, serosanguineous, mild, NECROTIC TISSUE, loosely-adherent, yellow slough, MALODOR, absent, CALOR, absent, ERYTHEMA, absent, PAIN ON PALPATION, absent Orthopedic GAIT ABNORMALITY: Pronated, abducted angl e and base of gate, B/L FOOT MORPHOLOGY: (+) Charcot collapse /destruction noted at MTJ b/l FOOTWEAR: , good condition, ex hibit proper fit and accommodation for pedal deformities. OT were inspected and noted to be worn, but in good condition giving proper support at the present time DIGITAL DEFORMITIES: Digital contracture , PIPJ, 2-5 right 2,4,5 left , incompl- reducible with WB, or to push-up test, no over, nor underlapping, Amputation T2 General Examination GENERAL APPEARANCE: Reveals a pleasant, alert, well nourished, well-developed, well hydrated individual, who demonstrates proper attention to hygiene/body habitus, and is in no acute distress, Pt serves as own historian for office visit today, Pt accompanied by, , who serves as, additional Historian, and/who is physically present in exam room at time of visit FOOT EXAM: Lower Extremity Neurological Exa m performed:: Yes Visual exam of foot performed:: Yes Date: 04/19/2024 Sensory testing performed:: sensations d iminished Sensory and motor testing performed:: se nsations diminished Pedal pulse taking performed:: 1+ ORIENTED: person, place, and t vinay Footwear Evaluation Footwear Evaluation performe d:: Yes Ophthalmology Referral DIABETES EYE EXAM Procedure Perform ed:: Yes ?Date of Exam Performed: 09/08/2023 Findings of Diabetic Eye Exam:: no retin opathy Vascular DP PULSES (B): 1/4, B/L PT PULSES (B): 2/4, B/L EDEMA (C): 2/4 , B/L SALVADOR'S SIGN: absent, B/L PALPABLE CORDS: absent, B/L PIGMENTATION: hemosiderin depositi on B/L Nails NAILS are: elongated,overgr own,dystrophic,greater than 3mm thick,discolored and friable with crumbly malodorous subungual debris, with dull to no pain on palpation due to neuropathy, TA, T1, T3, T5, T8, T9, There is evidence of no pain on palpation, and an area of subungual HEMORRAGHIC fluid with a pre-operative size measuring approximately ( 1-2 ) mm square T4
--- OUTSIDE RECORDS SUMMARY | 2024-04-27 07:20 | XMS_ITS ---
Author Organization [facility] Address [address] [place] [phone] Care Team Providers Care Dispatcher Clerk Name Role Phone Darien Bruner MD Primary Care Provider Unavaila Ronel Reaves Unavailable [phone] REASON FOR VISIT r/s 02/22 Encounters Encounter Location Date Provider Diagnosis [address] [address] 02/12/2024 Ronel Leon Plan Of Treatment Next Appt Details Provider Name:Ronel A Edward , 07/29/2024 09:00:00 AM, [address] [place], [address], Progress Notes * Leonardo GRIFFINDOB:1950 (73 yo M)Acc No.[id number]:02/12/2024 Patient:?Leonardo GRIFFIN :1950???Age:73 Y???Sex:Male Address:[address] [place] [address], [address] * true * Date:? Generated for Printi ng/Famargog/eTransmitting on:?04/27/2024 07:20 AM EST
--- OUTSIDE RECORDS SUMMARY | 2024-04-27 07:21 | XMS_ITS ---
Author Organization [facility] Address [address] [place] [phone] Care Team Providers Care Health Information Manager Name Role Phone Darien Bruner MD Primary Care Provider Unavaila Griffin Torres Jr Unavailable [phone] REASON FOR VISIT screening Encounters Encounter Location Date Provider Diagnosis [facility] [address] [place] [phone] 11/01/2022 Griffin Donahue Jr Colon cancer screening Z12.11 ASSESSMENTS Encounter Date Diagnosis Assessment Notes Treatment Notes Treatment Clinical Notes 11/01/2022 Colon cancer screening (ICD-10 - Z12.11) PLAN OF TREATMENT No Information
--- OUTSIDE RECORDS SUMMARY | 2024-04-27 07:21 | XMS_ITS ---
Author Organization [facility] Address [address] [place] [address] Care Team Providers Care Child Welfare Worker Name Role Phone Darien Bruner MD Primary Care Provider UnavailGriffin Cheng Jr Unavailable [phone] REASON FOR VISIT Barium enema Encounters Encounter Location Date Provider Diagnosis [facility] [address] [place] [address] 11/18/2022 Griffin Donahue Jr Colon cancer screening Z12.11 ASSESSMENTS Encounter Date Diagnosis Assessment Notes Treatment Notes Treatment Clinical Notes 11/18/2022 Colon cancer screening (ICD-10 - Z12.11) PLAN OF TREATMENT Pending Test Test Name Order Date XR BARIUM ENEMA 11/18/2022
--- OUTSIDE RECORDS SUMMARY | 2024-04-27 07:21 | XMS_ITS ---
Author Organization [facility] Address [address] [place] [address] Care Team Providers Care Overcoil Stepper Name Role Phone Darien Bruner MD Primary Care Provider UnavailRonel Jimenez Unavailable [phone] Encounters Encounter Location Date Provider Diagnosis [address] [address] 02/23/2024 Ronel Leon Plan Of Treatment Next Appt Details Provider Name:Ronel Leon , 07/29/2024 09:00:00 AM, [address] [place], [address], Progress Notes * Leonardo GRIFFINDOB:1950 (74 yo M)Acc No.[id number]:02/23/2024 Progress Note Patient:?Leonardo GRIFFIN Provider:?Ronel Leon DPM :1950???Age:73 Y???Sex:Male En e:02/23/2024 Address:[address] [place] [address] v[place]ebo, [id number] Pcp:Darien Bruner MD Subjective: * Chief Complaints: [...] Leon DPM Date:?2023 Generated for René temple/Melissa/Patel on:?04/27/2024 07:21 AM EST
--- OUTSIDE RECORDS SUMMARY | 2024-04-27 07:21 | XMS_ITS | Data Portability ---
Author Organization [place] - [facility] Address [address] [address] Care Team Providers Care Security Developer Name Role Phone EMMA THOMAS Primary Care [...] Gastroeso phageal reflux disease without esophagit is 282502014 Active 2014 Gastro-eso phageal reflux disease without esophagiti s; Note: Date Diagnosed: 01/16/2015 10:07 AM (K21.9) Not Available [facility] 4 02:31:43 Sensorine ural hearing loss of bilateral ears 034965200 Active 2013 SNHL Bilaterall y; CMS Risk: low risk Note: Date Diagnosed: 12/10/2013 9:18 AM (389.18) Not Available [facility] 4 02:31:47 Deviated nasal septum 584471131 Active 2014 Septal Deviation; Note: Date Diagnosed: 08/05/2014 11:13 AM (470) ; Start Date : 08/05/2014 Deviated nasal septum; Note: Date Diagnosed: 01/16/2015 9:52 AM (J34.2) Not Available [facility] 4 02:31:48 Bilateral sensory hearing loss 804143259 Active 2013 Hearing loss: Sensory hearing loss, bilateral; Location: left Note: Date Diagnosed: 12/16/2013 11:26 AM (389.11) Not Available [facility] 4 02:31:45 Simple obesity 677343463 Active 2016 Other obesity due to excess calories; Note: Date Diagnosed: 10/09/2016 1:21 PM (E66.09) Not Available [facility] 4 02:31:33 Postopera tive follow-up visit Active 2013 Post op; Note: Date Diagnosed: 12/16/2013 11:26 AM (V67.00) Not Available [facility] 4 02:31:42 Hypertrop hy of nasal turbinate s 84233601 Active 2014 Nasal turbinate hypertroph y; Note: Date Diagnosed: 02/16/2014 12:31 PM (478.0) ; Start Date : 02/16/2014 Hypertrop hy of nasal turbinates ; Note: Date Diagnosed: 01/16/2015 9:52 AM (J34.3) Not Available [facility] 4 02:31:37 Obstructi ve sleep apnea syndrome 22889698 Active 2015 Obstructiv e sleep apnea (adult) (pediatric ); Note: Date Diagnosed: 05/04/2015 4:55 PM (G47.33) Not Available [facility] 4 02:31:48 Allergic rhinitis caused by pollen 48468689 Active 2013 Vasomotor rhinitis; Note: Date Diagnosed: 01/10/2014 2:23 PM (477.0) Not Available [facility] 4 02:31:46 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 Procedures Surgical History None recorded. Imaging Results Imaging Date Name Status [facility] Details LastModified Time 04/27/2021 imaging/diag nostic result completed Information not available 10/28/2023 21:36:47 06/01/2021 imaging/diag nostic result completed Information not available 10/28/2023 21:37:06 Procedure Notes None recorded. Medical Equipment None Reported. Allergies Allergen ID Allergen Name Allergen Category Reaction Reaction Severity Criticality Documentation Date Start Date Code Code System Note Provider Name and Address Organization Details Recorded Time 39914 Product containin g penicilli n (product) medicatio n other Not available Not available 07/22/2023 [id number] SNOMED React ion: Unkno wn; Not Available [facility] 4 00:23:22 Medications Name Sig Start Date Stop Date Status Note LastModified by Organization Details LastModified Time furosemid e 40 mg tablet active Medicati on ID: 581022 B rand Name: furosemi de Send Method: E-Prescr ibed Sub s Allowed: subs OK Medic ationGen ericName : furosemi de Not Available Not Available Not Available metolazon e 2.5 mg tablet active Not Available Not Available Not Available metformin 500 mg tablet 05/11 completed Medicati on ID: [id number] Br and Name: metformi n Send Method: [...] ous solution 05/11 completed Medicati on ID: [id number] D uration Value: 28 Brand Name: Lantus U-100 Insulin Send Method: E-Prescr ibed Sub s Allowed: subs OK Speci al Instruct ion: INJECT 10 UNITS SUBCUTAN EOUSLY AT BEDTIME DISCAR D VIAL AFTER 28 DAYS Medic ationGen ericName : Lantus U-100 Insulin Not Available Not Available Not Available digoxin 250 mcg (0.25 mg) tablet 05/11 completed Medicati on ID: [id number] Br and Name: digoxin Send Method: E-Prescr ibed Sub s Allowed: subs OK Medic ationGen ericName : digoxin Not Available Not Available Not Available omeprazol e 40 mg capsule,d elayed release active Medicati on ID: 423376 B rand Name: omeprazo le Send Method: E-Prescr ibed Sub s Allowed: subs OK Medic ationGen ericName : omeprazo le Not Available Not Available Not Available tramadol 50 mg tablet 05/11 completed Medicati on ID: [id number] Br and Name: tramadol Send Method: E-Prescr ibed Sub s Allowed: subs OK Medic ationGen ericName : tramadol Not Available Not Available Not Available warfarin 4 mg tablet active Not Available Not Available Not Available Nexium 20 mg capsule,d elayed release 1 capsule by mouth once a day 05/11 completed Medicati on ID: [id number] Br and Name: Nexium S end Method: [...] 0.4 mg capsule active Medicati on ID: 081086 B rand Name: tamsulos in Send Method: E-Prescr ibed Sub s Allowed: subs OK Medic ationGen ericName : tamsulos in Not Available Not Available Not Available glipizide ER 2.5 mg tablet, extended release 24 hr 05/11 completed Medicati on ID: [id number] Br and Name: glipizid e Send Method: E-Prescr ibed Sub s Allowed: subs OK Medic ationGen ericName : glipizid e Not Available Not Available Not Available warfarin 2 mg tablet active Medicati on ID: 113723 B rand Name: warfarin Send Method: E-Prescr ibed Sub s Allowed: subs OK Medic ationGen ericName : warfarin Not Available Not Available Not Available fluticaso ne propionat e 50 mcg/actua tion nasal spray,andres pension 05/11 completed Medicati on ID: [id number] D uration Value: 30 Brand Name: fluticas one propiona te Send Method: E-Prescr ibed Sub s Allowed: subs OK Speci al Instruct ion: USE 1 SPRAY IN EACH NOSTRIL TWICE A DAY Medi cationGe nericNam e: fluticas one propiona te Not Available Not Available Not Available metformin ER 500 mg tablet,ex tended release 24 hr active Medicati on ID: [id number] B rand Name: metformi n Send Method: E-Prescr ibed Sub s Allowed: subs OK Medic ationGen ericName : metformi n Not Available Not Available Not Available ipratropi um bromide 21 mcg (0.03 %) nasal spray Inhale 2 spray into both nostrils three times a day as directed 05/11 completed Medicati on ID: [id number] Br and Name: Jessica Send Method: E-Prescr [...] mcg tablet 05/11 completed Medicati on ID: [id number] Br and Name: Centrum Silver Ultra Men's Se nd Method: E-Prescr ibed Sub s Allowed: subs OK Medic ationGen ericName : Centrum Silver Ultra Men's Not Available Not Available Not Available Vitals Date Recorded Body height Body mass index (BMI) Body weight Provider Name and Address Organization Details Last Updated DateTime 08/14/2023 172.72 cm 38 kg/m2 113817.09 g Tevin Koch [place] - [facility] 08/14/2023 10:01:01 Social History None recorded. Functional Status None recorded. Mental Status None recorded. Family History Nothing Reported. Medical History No medical history recorded. Past Encounters Encounter ID Performer Location Encounter Start Date Encounter Closed Date Diagnosis/Indication Diagnosis SNOMED-CT Code Diagnosis ICD10 Code Diagnosis Note [id number] RAMYA ARNDT MD [facility] [address] 08/14/2023 09:50:50 08/14/2023 10:16:30 Benign neoplasm of parotid gland 58509720 D11.0 Health Concerns Section Related Observation LastModified by Organization Detai ls LastModified Time None Recorded Concern Status LastModified by Organization Details LastModified Time None Recorded Advance Directives Directive None Recorded Payers Encounter Date Sequence Insurance Name Policy Number Policy Casarez Covered Member ID Casarez Member ID Guarantor Name 08/14/2023 2 [place] Leonardo Pang [id number] Leonardo Pang 08/14/2023 1 [place] [employer] Leonardo Pang [id number] Leonardo Pang Notes Date Note Type Note Provider Name and Address Organization Details Recorded Time 08/14/2023 text/html left parotid FNA 05/17/21 - warthin tumorct neck w contrast at [facility] 04/27/21left parotid 2.8cm mass. compare with prior [...] implant with Dr Demetrio ARNDT MD [address] [place] [address], [phone], [facility] - [facility] 08/14/2023 10:15:11
--- OUTSIDE RECORDS SUMMARY | 2024-04-27 07:21 | XMS_ITS | Clinical Summary ---
Author Organization [facility] Address [address] [place] [address] Care Team Providers Care Furniture Lumber Production Worker Name Role Phone Darien Bruner MD Primary Care Provider [phone] Allergies Active Allergy Reactions Criticality Noted Date Comments Penicillins Unknown/Patient and Family Unable to Define Medium 02/10/2024 Medications Medication Sig Dispensed Refills Start Date End Date Status SUPPLY DME MISCIndications:Pain in right ankle and joints of right foot RT ANKLE / Foot [place] Boot Dx: Diabetic Neuropathy, RT Plantar foot Ulcer 1 each 02/10/2024 Active Encounters Date Type Department Care Team Description 02/10/2024 10:30 [place] [address] Ant Matos MD Pain in left ankle and joints of left foot (Primary Dx); Pain in right ankle and joints of right foot 02/10/2024 10:20 AM EST [place] [address] from Last 3 Months Social History Tobacco [...] was performed in office at [facility] and images reviewed by orthopedic provider. ??Any findings are documented within ambulatory encounter note on date of service. Ant Matos MD IMG DIAGNOSTIC IMAGI NG ORDERABLES OA from Last 3 Months Care Teams Furniture Lumber Production Worker Relationship Specialty Start Date End Date Darien Bruner MD [address] [place] [address] [place] [address] PCP - General 01/19/24
--- OUTSIDE RECORDS SUMMARY | 2024-04-27 07:21 | XMS_ITS | Patient Health Record ---
Author Organization [facility] Address [address] [place] [address] Care Team Providers Care Mortar Mixer Operator Name Role Phone Darien Bruner MD Primary Care Provider Unavaila Ronel Reaves Unavailable [phone] Allergies Allergen (clinical drug ingredient) Drug/Non Drug Allergy documented on EMR Reaction Allergy Type Onset Date Status amoxicillin Amoxicillin Unknown Drug Allergy Act anneliese Penicillin Unknown Drug Allergy Active Results Component Value Reference Range Notes HEMOGLOBIN A1C (GLYCOHEMOGLO BIN) Reviewed date:04/19/2024 10:17:18 AM Interpretation: Performing Lab: Notes/Report: HEMOGLOBIN A1C % (HH) 6.7 HEMOGLOBIN A1C (GLYCOHEMOGLO BIN) Reviewed date:06/19/2023 07:58:59 AM Interpretation: Performing Lab: Notes/Report: HEMOGLOBIN A1C % (HH) 6.4 Reason For Referral No Information Medications Medication SIG (Take, Route, Frequency, Duration) Notes Start Date End Date Status Vitamin D Active metOLazone Active Diltiazem HCl CR Not -Taking Furosemide 40 MG 1 tablet Orally Once a day for 30 day(s) Active Compression Stockings 20-30mm Hg 1 pair wear daily for 30 days Active NexIUM Not-Taking Insulin 34UNITS 20-22 units per day before bed Not-Taking Digoxin Not-Taking Omeprazole 40 MG 1 capsule 30 minutes before morning meal Orally Once a day for 30 day(s) Not-Taking Penecillin Not-Takin g Extra-Depth Diabetic Shoes with 3 Pair Custom heat-molded multi-density innersoles Active metFORMIN HCl Active Iron 65 mg 1 tablet Orally Once a day Active Warfarin Sodium Acti ve Extra Depth Orthopedic Shoes (1 Pair) with Customized Heat Molded Multidensity Innersoles (3 Pair) as directed Dx: NIDDM/Polyneuropathy (E11.42), Hammertoe Foot Deformity (M20.41,M20.42), Preulcerative Skin Lesion(s) (L85.1 10/17/2022 Active Clindamycin HCl 300 MG 1 capsule Orally every 8 hrs for 10 day(s) 10/06/2014 Not-Taking oxyCODONE-Acetaminop hen 5-325 MG 1 tablet as needed Orally every 6 hrs Active zzzExtra Depth Orthopedic Shoes (1 Pair) with Customized Heat Molded Multidensity Innersoles (3 Pair) . . . Dx: NIDDM/Polyneuropathy (E11.42), Hammertoe Foot Deformity (M20.41,M20.42), Preulcerative Skin Lesion(s) (L85.1) for . 07/10/2015 Not-Taking Doxycycline Hyclate Not-Taking Centrum Silver Activ e Aspir-81 Not-Taking Carvedilol 12.5 MG 1 tablet with food Orally Active Lantus SoloStar Not- Taking Pravastatin Sodium A ctive glipiZIDE Active Melatonin Not-Taking traMADol HCl Not-Elvis ing Extra-Depth Diabetic Shoes with 3 Pair Custom heat-molded multi-density innersoles . for 1 year . Dx:hammertoes,Hallux valgus,pre ulcerative lesions for . 06/20/2014 Not-Taking Bactrim DS 800-160 MG 1 tablet Orally every 12 hrs for 10 day(s) 10/06/2014 Not-Taking Immunizations Vaccine Route Administration Date Status Comme [...] (Standard) Question Answer Notes Tobacco use: Nonsmoker Problems Problem Type SNOMED Code ICD Code Onset Dates Problem Status W/U Status Risk Notes Problem Acquired hammer toe of right foot (9788039645261839 ) Other hammer toe(s) (acquired), right foot (M20.41) Active confirmed Problem Acquired hammer toe of left foot (1676025764505454 ) Other hammer toe(s) (acquired), left foot (M20.42) Active confirmed Problem Plantar wart (64398722) Plantar wart (B07.0) Active confirmed Problem Ulcer of toe (798648313) Non-pressure chronic ulcer of other part of left foot limited to breakdown of skin (L97.521) Active confirmed Problem Ulcer of toe (560369828) Non-pressure chronic ulcer of other part of right foot limited to breakdown of skin (L97.511) Active confirmed Problem Acquired left hallux valgus (355684905397829) Hallux valgus (acquired), left foot (M20.12) Active confirmed Problem Acquired right hallux valgus (688713582105629) Hallux valgus (acquired), right foot (M20.11) Active confirmed Problem Polyneuropathy due to type 2 diabetes mellitus (447349737) Type 2 diabetes mellitus with diabetic polyneuropathy (E11.42) Active confirmed Problem Neuropathic arthropathy due to diabetes mellitus (638303647) Charcot foot due to diabetes mellitus (E11.610) Active confirmed Problem Difficulty balancing (324659300) Unsteady gait (R26.81) Active confirmed Problem Charcot's gait (12919923) Charcot gait (R26.0) Active confirmed Problem Ulcer of toe of right foot (disorder) (8930171131737156 1) Skin ulcer of toe of right foot, limited to breakdown of skin (L97.511) Active confirmed Problem Unstageable pressure injury of right foot (508745284988376) Pressure injury of right foot, unstageable (L89.890) Active confirmed Problem Ulcer of toe of left foot (disorder) (6453649998704836 2) Skin ulcer of toe of left foot, limited to breakdown of skin (L97.521) Active confirmed Problem Stasis dermatitis (35053822) Stasis dermatitis (I87.2) Active confirmed Vital Signs Blood pressure diastolic 60 mm Hg 04/19/2024 Height 5ft8in in 04/19/2024 Blood pressure systolic 120 mm Hg 04/19/2024 Weight 244 lbs 04/19/2024 BMI 37.1 kg/m2 04/19/2024 Procedures Procedure Date Ordered Date Performed Result Body Sit e 41490-MARFQMS NAIL, 6 OR MORE 06/19/2023 N/A 34734-Czfq Destruction, 1-14 06/19/2023 N/A 47684-BVVK SKIN LESIONS, OVER 4 06/19/2023 N/A 51343-PFEGSFJ NAIL, 6 OR MORE 10/23/2023 N/A 91163-BOEW SKIN LESIONS, OVER 4 10/23/2023 N/A 71190-EUWWTTI NAIL, 6 OR MORE 04/19/2024 N/A 07329-WQMJ SKIN LESIONS, OVER 4 04/19/2024 N/A Encounters Encounter Location Date Provider Diagnosis [address] [address] 06/19/2023 Ronel Black Type 2 diabetes mellitus with diabetic polyneuropathy E11.42 ; Tinea unguium B35.1 ; Plantar wart B07.0 ; Pain in right foot M79.671 ; Charcot gait R26.0 ; Edema, lower extremity R60.0 and Stasis dermatitis I87.[address] [address] 10/23/2023 Ronel Black Type 2 diabetes mellitus with diabetic polyneuropathy E11.42 ; Tinea unguium B35.1 ; Charcot gait R26.0 and Pressure injury of right foot, unstageable L89.[address] [address] 04/19/2024 Ronel Black Type 2 diabetes mellitus with diabetic polyneuropathy E11.42 ; Charcot foot due to diabetes mellitus E11.610 ; Tinea unguium B35.1 ; Charcot gait R26.0 ; Skin ulcer of toe of right foot, limited to breakdown of skin L97.511 and Subungual contusion of toe of left foot, initial encounter S90.222A [facility] [address] [place] [address] 02/12/2024 Ronel Leon Assessments Encounter Date Diagnosis (ICD Code) Assessment Notes Treatment Notes Treatment Clinical Notes Section Notes 10/23/2023 Tinea unguium (ICD-10 - B35.1) 10/23/2023 Type 2 diabetes mellitus with diabetic polyneuropathy (ICD-10 - E11.42) 04/19/2024 Type 2 diabetes mellitus with diabetic polyneuropathy (ICD-10 - E11.42) 04/19/2024 Charcot foot due to diabetes mellitus (ICD-10 - E11.610) 06/19/2023 Tinea unguium (ICD-10 - B35.1) 06/19/2023 Type 2 diabetes mellitus with diabetic polyneuropathy (ICD-10 - E11.42) 06/19/2023 Plantar wart (ICD-10 - B07.0) 04/19/2024 Tinea unguium (ICD-10 - B35.1) 10/23/2023 Charcot gait (ICD-10 - R26.0) 10/23/2023 Pressure injury of right foot, unstageable (ICD-10 - L89.890) 04/19/2024 Charcot gait (ICD-10 - R26.0) 06/19/2023 Pain in right foot (ICD-10 - M79.671) 04/19/2024 Skin ulcer of toe of right foot, limited to breakdown of skin (ICD-10 - L97.511) 06/19/2023 Charcot gait (ICD-10 - R26.0) 04/19/2024 Subungual contusion of toe of left foot, initial encounter (ICD-10 - S90.222A) 06/19/2023 Edema, lower extremity (ICD-10 - R60.0) 06/19/2023 Stasis dermatitis (ICD-10 - I87.2) Plan Of Treatment Pending Test Test Name Order Date Hemoglobin A1c 06/04/2018 95054-QSIIPPX NAIL, 6 OR MORE 07/10/2015 70227-FBICWCE NAIL, 6 OR MORE 10/23/2023 98276-EXJGVBZ NAIL, 6 OR MORE 02/17/2023 66307-PPVGYTF NAIL, 6 OR MORE 10/25/2021 87732-TNOLNUY NAIL, 6 OR MORE 02/07/2022 38818-PXMTEXV NAIL, 6 OR MORE 10/17/2022 87252-FSNPYQL NAIL, 6 OR MORE 12/22/2013 19798-SVVOWVX NAIL, 6 OR MORE 09/20/2013 78262-TRAXMMA NAIL, 6 OR MORE 03/31/2013 27880-BIIUNWY NAIL, 6 OR MORE 12/28/2012 77747-FXUDBSM NAIL, 6 OR MORE 12/05/2010 83338-MQLEKQO NAIL, 6 OR MORE 09/21/2014 53693-VHFEBFF NAIL, 6 OR MORE 10/28/2011 73218-EOHHMOZ NAIL, 6 OR MORE 05/01/2015 50998-QQFSPTV NAIL, 6 OR MORE 10/02/2015 44558-UZTSOUJ NAIL, 6 OR MORE 05/30/2016 90101-ZGUUVIK NAIL, 6 OR MORE 12/14/2015 75576-MBCTZZA NAIL, 6 OR MORE 11/28/2016 62389-KVPKJVW NAIL, 6 OR MORE 02/27/2017 36121-OUKXIQB NAIL, 6 OR MORE 05/29/2017 14259-ESJISDC NAIL, 6 OR MORE 03/12/2018 83929-HVODDFL NAIL, 6 OR MORE 04/19/2024 28574-XUXPGAJ NAIL, 6 OR MORE 09/23/2012 87013-PEFMKUV NAIL, 6 OR MORE 01/16/2012 89958-BIABQOC NAIL, 6 OR MORE 06/24/2012 93613-PRQUKXQ NAIL, 6 OR MORE 09/25/2011 32890-FOYKWQV NAIL, 6 OR MORE 07/15/2011 21848-HGOQNPL NAIL, 6 OR MORE 04/22/2011 45060-CMFPTAZ NAIL, 6 OR MORE 02/06/2011 78349-VTLYRNB NAIL, 6 OR MORE 06/19/2023 49887-EGXPLNR NAIL, 6 OR MORE 06/13/2022 78483-SKNOSWU NAIL, 6 OR MORE 07/12/2021 31892-TOJVSTK NAIL, 6 OR MORE 06/04/2018 87546-NIQLIIG NAIL, 6 OR MORE 11/27/2017 31835-KMPYEXU NAIL, 6 OR MORE 08/29/2016 41053-ONXBWCZ NAIL, 6 OR MORE 02/22/2016 75580-UPDMFME NAIL, 6 OR MORE 02/06/2015 78218-QZPXZOK NAIL, 6 OR MORE 11/30/2014 29844-DSFEUOO NAIL, 6 OR MORE 08/28/2017 29298-QEMOEQE NAIL, 6 OR MORE 06/20/2014 32101-DFQNZUZ NAIL, 6 OR MORE 03/21/2014 75737-KESPJPI NAIL, 6 OR MORE 06/14/2013 03846-QSWTCFY NAIL, 6 OR MORE 04/08/2012 14236-Aovm Destruction, 1-14 06/13/2022 00798-Vgdr Destruction, -06/19/2023 11457-Fthv Destruction, -10/17/2022 29194-Liuv Destruction, -02/17/2023 43820-Oeyfwaoh Plate 09/20/2013 84597-Vldmspki Plate 12/22/2013 89637-Enuqzzly Plate 10/25/2021 73423-Frasajjx Plate 05/29/2017 56529-Gfecjwzd Plate 09/21/2014 87006-Evfhtztd Plate 07/12/2021 37386-Onqmrfbu Plate 03/21/2014 73444-Ozpcyush Plate 06/20/2014 64219-Jhccoygi Plate 08/29/2016 10887-Niqqndly Plate 11/30/2014 56585-Ysqueygu Plate 06/14/2013 32109- Debride <25 sq cm 02/22/2016 31314- Debride <25 sq cm 03/21/2014 11392- Debride <25 sq cm 04/08/2012 40286- Debride <25 sq cm 10/06/2014 65821- Debride <25 sq cm 06/20/2014 90310- Debride <25 sq cm 06/14/2013 15897- Debride <25 sq cm 09/02/2011 64210- Debride <25 sq cm 09/25/2011 80423- Debride <25 sq cm 06/24/2012 23171- Debride <25 sq cm 01/16/2012 58782- Debride <25 sq cm 09/23/2012 00843- Debride <25 sq cm 09/21/2014 28886- Debride <25 sq cm 12/26/2010 21952- Debride <25 sq cm 10/02/2015 53433- Debride <25 sq cm 10/12/2015 23872- Debride <25 sq cm 10/28/2011 35398- Debride <25 sq cm 02/27/2017 29943- Debride <25 sq cm 12/14/2015 60309- Debride <25 sq cm 05/30/2016 36697- Debride <25 sq cm 12/22/2013 53437- Debride <25 sq cm 09/20/2013 60495- Debride <25 sq cm 12/28/2012 68557- Debride <25 sq cm 03/31/2013 81820- Debride <25 sq cm 10/17/2022 09612- Debride <25 sq cm 10/25/2021 28265- Debride <25 sq cm 02/07/2022 24225-IPTXCVW SKIN/TISSUE 03/12/2018 08470-CCDWNRD SKIN/TISSUE 12/11/2011 04044-XXODYJK SKIN/TISSUE 11/27/2011 29669-OWQKTNU SKIN/TISSUE 06/04/2018 09861-DYZUEFC SKIN/TISSUE 10/06/2014 62828 I&D ABSCESS- SIMPLE,SINGLE 015 92063 I&D ABSCESS- SIMPLE,SINGLE 015 23518 I&D ABSCESS- SIMPLE,SINGLE 011 65497-TLTX SKIN LESIONS, OVER 4 12/06/19 11 59079-ERTR SKIN LESIONS, OVER 4 09/22/19 15 26136-JQAT SKIN LESIONS, OVER 4 10/28/19 12 05828-WACC SKIN LESIONS, OVER 4 05/01/19 16 70474-FDMZ SKIN LESIONS, OVER 4 10/02/19 16 48199-EHUJ SKIN LESIONS, OVER 4 03/12/19 19 58616-ZPNV SKIN LESIONS, OVER 4 05/30/19 18 93185-ONMF SKIN LESIONS, OVER 4 05/31/19 17 26345-DTDC SKIN LESIONS, OVER 4 11/29/19 17 76979-YIJY SKIN LESIONS, OVER 4 12/14/19 16 91642-MNKE SKIN LESIONS, OVER 4 02/28/20 17 78985-CHKY SKIN LESIONS, OVER 4 10/18/19 23 08324-QBRK SKIN LESIONS, OVER 4 02/18/20 23 44955-ZBYJ SKIN LESIONS, OVER 4 10/23/19 24 42149-XZRR SKIN LESIONS, OVER 4 04/19/19 25 04918-MSWL SKIN LESIONS, OVER 4 07/10/19 16 05430-QWKG SKIN LESIONS, OVER 4 03/31/19 14 75538-YTCI SKIN LESIONS, OVER 4 12/29/19 13 17897-DFWQ SKIN LESIONS, OVER 4 09/21/19 14 04841-ZLUW SKIN LESIONS, OVER 4 12/23/19 14 59347-YUEO SKIN LESIONS, OVER 4 12/01/19 15 68093-AUBE SKIN LESIONS, OVER 4 02/22/20 16 88799-AKKF SKIN LESIONS, OVER 4 02/07/20 15 55938-FGXC SKIN LESIONS, OVER 4 08/29/19 18 73051-TEGP SKIN LESIONS, OVER 4 11/28/19 18 10138-OGHC SKIN LESIONS, OVER 4 06/15/19 14 92477-WSUI SKIN LESIONS, OVER 4 04/08/19 13 63232-NJMA SKIN LESIONS, OVER 4 03/21/19 15 90875-ZWBE SKIN LESIONS, OVER 4 06/21/19 15 08800-WNHY SKIN LESIONS, OVER 4 06/05/19 19 69169-YABW SKIN LESIONS, OVER 4 06/14/19 23 28244-AMSE SKIN LESIONS, OVER 4 06/19/19 24 26432-DLLF SKIN LESIONS, OVER 4 04/22/19 12 11044-QWNF SKIN LESIONS, OVER 4 02/07/20 11 16787-WJQY SKIN LESIONS, OVER 4 07/15/19 12 49533-KWVH SKIN LESIONS, OVER 4 09/25/19 12 07991-OIFZ SKIN LESIONS, OVER 4 06/25/19 13 65148-NPSG SKIN LESIONS, OVER 4 09/24/19 13 10526-LASZ SKIN LESIONS, OVER 4 01/16/20 12 17074-KGRB SKIN LESIONS, 2 TO 4 09/24/19 13 23350-NEHX SKIN LESIONS, 2 TO 4 07/13/19 24187-CDFH SKIN LESIONS, 2 TO 4 06/21/19 15 03545-KPXR SKIN LESIONS, 2 TO 4 03/21/19 15 68910-KHIZ SKIN LESIONS, 2 TO 4 06/15/19 14 75712-WNWA SKIN LESIONS, 2 TO 4 08/30/19 17 58329-FZXL SKIN LESIONS, 2 TO 4 12/23/19 14 71499-HEFZ SKIN LESIONS, 2 TO 4 12/29/19 13 69619-ZTER SKIN LESIONS, 2 TO 4 03/31/19 14 47060-FXEG SKIN LESIONS, 2 TO 4 02/08/20 22 06538-TGXU SKIN LESIONS, 2 TO 4 10/26/19 22 09200-Gand. Subungual Hematoma 2 81090-Jkxa. Subungual Hematoma 2 Next Appt Details Provider Name:Ronel Leon , 07/29/2024 09:00:00 AM, [address] [place], [address], Insurance Providers Payer Name Payer Address Payer Phone Subscriber Number Group Number Insured Name Patient Relationship to Insured Coverage Start Date Coverage End Date Medicare [facility] [employer] [address] [place] [address] [id number] Leonardo Pang Self - patient is the insured [employer] [address] [place] [address] [id number] Leonardo Pang Self - patient is the insured Medical (General) History Medical History History ICD Code osteoporosis hypertension diabetes mellitus back, hip, knee pain Arthritis Cholesterol Surgical History Surgery Date(Month/Year) hip surgery 119/1996 cocculer ear implant 12/2013 colonoscopy 05/2017 left knee replacement 12/27 Hospitalization History Reason Date(Month/Year) [facility] 08[facility]28/23 [facility] 10/23/19 12
--- OUTSIDE RECORDS SUMMARY | 2024-04-27 07:22 | XMS_ITS ---
Author Organization [facility] Address [address] [place] [address] Care Team Providers Care Senior Group Manager Name Role Phone Darien Bruner MD Primary Care Provider Unavaila Griffin Torres Jr [phone] REASON FOR VISIT incomplete colonoscopy Encounters Encounter Location Date Provider Diagnosis [facility] [address] [place] [address] 11/01/2022 Griffin Donahue Jr PLAN OF TREATMENT No Information
--- OUTSIDE RECORDS SUMMARY | 2024-04-27 07:22 | XMS_ITS | Patient Health Record ---
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 (Z79.4) Active confirmed 394723190 PLAN OF TREATMENT Pending Test Test Name Order Date XR BARIUM ENEMA 11/18/2022 Future Test Test Name Order Date COLONOSCOPY 07/31/2011 COLONOSCOPY 02/07/2017 COLONOSCOPY 08/28/2022 Insurance Providers Payer Name Payer Address Payer Phone Subscriber Number Group Number Insured Name Patient Relationship to Insured Coverage Start Date Coverage End Date MEDICARE OF [place] [address] [place] [address] [phone] [id number] KAZ GRIFFIN Self - patient is the insured [employer] ATT[employer] CLAIMS [address] [place] [address] [id number] KAZ GRIFFIN Self - patient is the [...]
[2024-04-27 07:41] LABS: MANUAL DIFF FLAG NO
[2024-04-27 07:48] LABS: Basophils Percent Auto 0.1 % (0-2); Eosinophils Absolute Auto 0.3 X10*3/uL (0.0-0.4); Eosinophils Percent Auto 3.6 % (0-4); Hematocrit 37.8 % (42.0-52.0); Hemoglobin 12.6 g/dl (14.0-18.0); Imm Gran Abs Auto 0.03 X10*3/uL (0.00-0.03); Imm Gran Pct Auto 0.4 % (0.0-0.4); Lymphocytes Absolute Auto 1.4 X10*3/uL (1.2-4.9); Lymphocytes Percent Auto 17.4 % (20-40); Mean Corpuscular HGB Conc 33.3 g/dl (31.0-36.0); Mean Corpuscular Hemoglobin 31.4 pg (27.0-33.0); Mean Corpuscular Volume 94.3 fL (80.0-98.0); Mean Platelet Volume 9.8 fL (9.4-12.4); Monocytes Absolute Auto 0.9 X10*3/uL (0.1-1.2); Monocytes Percent Auto 11.4 % (2-11); Neutrophils Absolute Auto 5.3 x10*3/uL (2.0-8.3); Neutrophils Percent Auto 67.1 % (45-73); Platelet Count 198 X10*3/uL (160-400); Red Blood Count 4.01 X10*6/uL (4.60-5.80); Red Cell Distribution Width 13.5 % (11.0-16.0); White Blood Count 7.9 X10*3/uL (4.8-10.8)
[2024-04-27 08:14] LABS: Estimated Average Glucose 146 mg/dL; Hemoglobin A1C 165.5935 umol/L; Hemoglobin A1c % 6.7 % (<6.0); Total Hemoglobin (HGBA1C) 3296.8201 umol/L
[2024-04-27 08:18] LABS: Prothrombin Time 23.7 SEC (10.9-12.4)
[2024-04-27 08:22] LABS: Alanine Aminotransferase < 6 U/L (0-40); Alkaline Phosphatase 63 U/L (39-117); Anion Gap 16 (12-20); Aspartate Amino Transferase 23 U/L (5-37); Bilirubin Total 0.6 mg/dL (0.0-1.0); Blood Urea Nitrogen 34 mg/dL (9-16); Calcium 9.8 mg/dL (8.4-10.2); Carbon Dioxide 31 mmol/L (22-29); Chloride 102 mmol/L (96-108); Cholesterol 134 mg/dL (<200); Estimated Glomerular Filt Rate > 60; Glucose Fasting 97 mg/dL (60-99); HDL Cholesterol 38 mg/dL (>40); LDL Cholesterol Calculated 70 mg/dL (<100); Potassium 4.7 mmol/L (3.3-5.1); Sodium 144 mmol/L (135-145); Total Protein 7.4 g/dL (6.5-8.0); Triglycerides 134 mg/dL (<150)
== END 2024-04-27 07:18 | disposition home or self-care (01) ==
LOC: HO.LAB 07:17
PROVIDERS: Internal Medicine; PCP Internal Medicine; Visit Provider Internal Medicine
DX: E11.9 Type 2 diabetes mellitus without complications (principal); I48.91 Unspecified atrial fibrillation; N18.9 Chronic kidney disease, unspecified; E78.00 Pure hypercholesterolemia, unspecified
CPT/HCPCS: 36415; 80053; 80061; 83036; 85025; 85610

== ENCOUNTER 2024-05-17 13:40 | Outpatient (AMB) | payer MEDICARE, SELFPAY ==
--- NOTE | 2024-05-17 13:58 | MHC.OFFVIS ---
Vital Signs 05/17/24 14:11 Pulse 66 Pulse Source Pulse Oximeter Temp 98.9 F Temp Source Oral Pulse Oximetry (%) 98 Oxygen Delivery Method Room Air Intake Visit Reasons: 1 month follow up doxy Allergies Penicillins [PENICILLINS] Allergy (Intermediate, Verified 05/28/24 10:20) rash- STATES BAD RXN CHILD HPI HPI 1 month follow up doxy: Details: He has had MSSA bacteremia He was done with Kefzol on 04/20. He had nonhealing wound on right foot. [facility] Medical History Diabetic foot ulcer MSSA bacteremia Foot ulcer, right Ambulates with cane Cochlear implant in place Type 2 diabetes mellitus with unspecified complications Essential hypertension Persistent atrial fibrillation Osteoarthritis of left knee Deafness in left ear JUDIE (obstructive sleep apnea) Osteoarthritis Anemia Venous stasis Hard of hearing Obesity GERD (gastroesophageal reflux disease) BPH (benign prostatic hyperplasia) Diabetes Peripheral edema Atrial fibrillation COPD (chronic obstructive pulmonary disease) Chronic a-fib Surgical History History of umbilical hernia repair (02/18/24) Hx of total knee arthroplasty History of amputation of toe Hx of total shoulder replacement Hx of colonoscopy History of bilateral hip replacements Uses cochlear implant Family History Father No problems noted. Mother Stroke Social History Household Members: Spouse Housing: House Are you a primary personal care service provider to a significant other at home: No Do you presently have visiting nurse or other home services: No Alcohol intake: former Patient Tobacco Use Status: Former Tobacco user Tobacco use type: Cigarette Second Hand Smoke Exposure: No Advance Directives Date on File: 12/31/19 service: No 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al status: retired 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 Review of Systems Const All systems reviewed & are unremarkable except as noted in HPI and below Physical Exam Vital Signs: Last Vital Signs Temp 98.9 F 05/17/24 14:11 Pulse 66 05/17/24 14:11 Pulse Ox 98 05/17/24 14:11 Oxygen Delivery Method Room Air 05/17/24 14:11 Const Other: General: cooperative Orientation/consciousness: patient oriented x3 HEENT Head: Yes normal to inspection Mouth: Normal oral and palatal mucosa present Eyes General: appearance normal, both eyes and all related structures Pupils: Equal, round and reactive pupils present Resp Effort & Inspection: normal respiratory effort Cardio Rate: regular rate Rhythm: regular rhythm GI Palpation (GI): Soft to palpation and nontender General: Yes no CVA tenderness Back/Spine/Pelvis Back: no CVA tenderness Skin General skin exam: no rashes or lesions noted Neuro General: patient oriented x3 Cranial nerves: Yes CN's II-XII intact bilaterally and Yes Equal, round and reactive pupils present Extrem Other: healing foot Psych Appearance: grossly normal Assessment & Plan Assessment & Plan (1) MSSA bacteremia: Comment: He has resolved MSSA bacteremia Code(s): R78.81 - Bacteremia; B95.61 - Methicillin susceptible Staphylococcus aureus infection as the cause of diseases classified elsewhere Category: Medical Plan: See again prn need. (2) Cellulitis: Comment: n/a Code(s): L03.90 - Cellulitis, unspecified Category: Medical Qualifiers: Laterality: right Site of cellulitis: extremity Site of cellulitis of extremity: lower extremity Qualified Code(s): L03.115 - Cellulitis of right lower limb Plan n/a Coding Level of Care Code Est Pt Level 3 (92512) Diagnoses MSSA bacteremia R78.81; B95.61 Cellulitis of right lower extremity L03.115 Laterality: right Site of cellulitis: extremity Site of cellulitis of extremity: lower extremity
[2024-05-17 14:11] VITALS: PULSE 66; TEMP 37.2; O2SAT 98
--- OUTSIDE RECORDS SUMMARY | 2024-05-17 15:26 | XMS_ITS ---
Author Organization [facility] Address [address] [place] [address] Care Team Providers Care Lumpia Wrapper Maker Name Role Phone Darien Bruner MD Primary Care Provider Unavaila ble Black, Ronel Unavailable [phone] Allergies Allergen (clinical drug ingredient) Drug/Non Drug [...] Ordered Date Performed Result Body Sit e 43827-[id number] NAIL, 6 OR MORE 04/19/2024 N/A 91318-FXIP SKIN LESIONS, OVER 4 04/19/2024 N/A Encounters Encounter Location Date Provider Diagnosis [facility] [place] [address] [place] [address] 04/19/2024 Ronel Black Type 2 diabetes mellitus [...] Treatment Pending Test Test Name Order Date [id number] NAIL, 6 OR MORE 04/19/2024 75166-KSML SKIN LESIONS, OVER 4 04/19/19 25 Next Appt Details Follow Up: 4 Months, Reason: Provider Name:Ronel Leon , 07/29/2024 09:00:00 AM, [address] [place] [address], [address], Procedure Notes * Category Sub-Category Detail Notes [...] use of a nail nipper and/or dremel-type concrete grinder operator, to a more viable healthy nail plate [...] to maintain effectiveness in symptomatic relief - 51491 Keratoma Treatment Parring or Cutting o f [...] instrumentation by the physician of record - 91181 Progress Notes * Leonardo GRIFFINDOB:1950 (74 yo M)Acc No.[id number]:04/19/2024 Progress Note Patient:?Leonardo GRIFFIN Provider:?Ronel Leon DPM :1950???Age:74 Y???Sex:Male En e:04/19/2024 Address:[address] [place], [place] [phone] Pcp:Darien Bruner MD Subjective: * Chief Complaints: * ???At Risk FootcareOpen sore * HPI: ???At Risk footcare:?Pt States Last PCP Visit:?Date?03/30/2024 ???Skin problems:?Pt States PCP Visit: ?DATE?03/30/2024 ?Location:?Midfoot , Bottom , Right, top 2,3 digit right.?Treatments:?Pt relates hospitalization end of September for open wound with infection. [facility] [...] knee replacement 12/27 * Hospitalization/Major Diagno stic Procedure:?[facility] for [facility]fib 10/23/2011[facility]- Lesion on foot [...] . ?Occupation: retired- Disabled before fdc. * Medications:?TakingmetOLazon e Vitamin D Furosemide 40 [...] 6.7 * Examination: ???Ophthalmology Referral: ?DIABETES EYE EXAM?Procedure Performed:?Yes ?Date of Exam Performed?09/08/2023 ?Findings of Diabetic Eye Exam:?no retinopathy?General Examination: ?GENERAL APPEARANCE:?Reveals a pleasant, alert, well nourished, well- developed, well hydrated individual, who demonstrates proper attention to hygiene/body habitus, and is in no acute distress, Pt serves as own historian for office visit today, Pt accompanied by, , who serves as, additional Historian, and/who is physically present in exam room at time of visit.?ORIENTED:?person, place, and time.?FOOT EXAM:?Lower Extremity Neurological Exam performed:?Yes ?Visual exam of foot performed:?Yes ?Date?04/19/2024 ?Sensory testing performed:?sensations diminished ?Sensory and motor testing performed:?sensations diminished ?Pedal pulse taking performed:?1+ ?Footwear Evaluation?Footwear Evaluation performed:?Yes?Neurological: ?SENSORY:?exam demonstrates. reduced vibration lower extremity, 5.07 monofilament test performed at plantar aspects of 5 varied sites per foot, shows sensation, reduced, B/L, reduced sharp/dull discrimination , Pt relates Cont. anesthesia , reduced proprioception sensation.?Vascular: ?DP PULSES (B):?1/4, B/L.?PT PULSES (B):?2/4, B/L.?PIGMENTATION:?hemosiderin deposition B/L.?EDEMA (C):?2/4 , ?B/L.?SALVADOR'S SIGN:?absent, [...] - S90.222A??? Plan: * Treatment: 2.?Tinea unguium?Procedure: 92546-NYGYTTD NAIL, 6 OR MORE * Procedures:?Debride Nail [...] use of a nail nipper and/or dremel-type concrete grinder operator, to a more viable healthy nail plate [...] to maintain effectiveness in symptomatic relief - 77049.?Keratoma Treatment:?Parring or Cutting of Benign Hyperkeratotic Lesion(s)?(-57) [...] instrumentation by the physician of record - 98758.? * Procedure Codes:?26602 DEBRI DE NAIL, 6 OR MORE, Modifiers: XS 06395 TRIM SKIN LESIONS, OVER 4, Modifiers: XS [...] Provider:?Ronel Leon DPM Date:?2024 Generated for René temple/Melissa/Audreyitting on:?05/17/2024 03:26 PM EDT History and Physical Notes * HPI (History of Present Illness) Category Sub-Category Detail Notes Category Not es Skin problems Location: Midfoot , Bottom , Right, top 2,3 digit right Treatments: Pt relates hospital[facility] end of September for open wound with infection. pt is presently being treated at [place] [facility] wound care protivin and VNA is coming to the house [...]
--- OUTSIDE RECORDS SUMMARY | 2024-05-17 15:26 | XMS_ITS | Data Portability ---
Author Organization [place] [facility], Allergy Address [address] [address] Care Team Providers Care Sales Representative Public Utilities Name Role Phone EMMA THOMAS Primary Care Provider [phone] Assessment Encounter Date Assessment Date Assessment LastModified [...] Gastroeso phageal reflux disease without esophagit is 793453538 Active 2014 Gastro-eso phageal reflux disease without esophagiti s; Note: Date Diagnosed: 01/16/2015 10:07 AM (K21.9) Not Available [facility] 4 02:31:43 Sensorine ural hearing loss of bilateral ears 937285269 Active 2013 SNHL Bilaterall y; CMS Risk: low risk Note: Date Diagnosed: 12/10/2013 9:18 AM (389.18) Not Available [facility] 4 02:31:47 Deviated nasal septum 327078998 Active 2014 Septal Deviation; Note: Date Diagnosed: 08/05/2014 11:13 AM (470) ; Start Date : 08/05/2014 Deviated nasal septum; Note: Date Diagnosed: 01/16/2015 9:52 AM (J34.2) Not Available [facility] 4 02:31:48 Bilateral sensory hearing loss 644855175 Active 2013 Hearing loss: Sensory hearing loss, bilateral; Location: left Note: Date Diagnosed: 12/16/2013 11:26 AM (389.11) Not Available [facility] 4 02:31:45 Simple obesity 816248190 Active 2016 Other obesity due to excess calories; Note: Date Diagnosed: 10/09/2016 1:21 PM (E66.09) Not Available [facility] 4 02:31:33 Postopera tive follow-up visit Active 2013 Post op; Note: Date Diagnosed: 12/16/2013 11:26 AM (V67.00) Not Available [facility] 4 02:31:42 Hypertrop hy of nasal turbinate s 27280919 Active 2014 Nasal turbinate hypertroph y; Note: Date Diagnosed: 02/16/2014 12:31 PM (478.0) ; Start Date : 02/16/2014 Hypertrop hy of nasal turbinates ; Note: Date Diagnosed: 01/16/2015 9:52 AM (J34.3) Not Available [facility] 4 02:31:37 Obstructi ve sleep apnea syndrome 28576887 Active 2015 Obstructiv e sleep apnea (adult) (pediatric ); Note: Date Diagnosed: 05/04/2015 4:55 PM (G47.33) Not Available [facility] 4 02:31:48 Allergic rhinitis caused by pollen 66754542 Active 2013 Vasomotor rhinitis; Note: Date Diagnosed: 01/10/2014 2:23 PM (477.0) Not Available [facility] 4 02:31:46 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 [...] Name and Address Organization Details Recorded Time 37539 Product containin g penicilli n (product) medicatio n other Not available Not available 07/22/2023 68425 800 SNOMED React ion: Unkno wn; Not Available [facility] 4 00:23:22 Medications Name Sig Start Date Stop Date Status Note LastModified by Organization Details LastModified Time furosemid e 40 mg tablet active Medicati on ID: 543442 B rand Name: furosemi de Send Method: E-Prescr ibed Sub s Allowed: subs OK Medic ationGen ericName : furosemi de Not Available Not Available Not Available metolazon e 2.5 mg tablet active Not Available Not Available Not Available metformin 500 mg tablet 05/11 completed Medicati on ID: 48746 Br and Name: metformi n Send Method: [...] ous solution 05/11 completed Medicati on ID: 538636 D uration Value: 28 Brand Name: Lantus U-100 Insulin Send Method: E-Prescr ibed Sub s Allowed: subs OK Speci al Instruct ion: INJECT 10 UNITS SUBCUTAN EOUSLY AT BEDTIME DISCAR D VIAL AFTER 28 DAYS Medic ationGen ericName : Lantus U-100 Insulin Not Available Not Available Not Available digoxin 250 mcg (0.25 mg) tablet 05/11 completed Medicati on ID: [id number] Br and Name: digoxin Send Method: E-Prescr ibed Sub s Allowed: subs OK Medic ationGen ericName : digoxin Not Available Not Available Not Available omeprazol e 40 mg capsule,d elayed release active Medicati on ID: 775347 B rand Name: omeprazo le Send Method: E-Prescr ibed Sub s Allowed: subs OK Medic ationGen ericName : omeprazo le Not Available Not Available Not Available tramadol 50 mg tablet 05/11 completed Medicati on ID: 76657 Br and Name: tramadol Send Method: E-Prescr ibed Sub s Allowed: subs OK Medic ationGen ericName : tramadol Not Available Not Available Not Available warfarin 4 mg tablet active Not Available Not Available Not Available Nexium 20 mg capsule,d elayed release 1 capsule by mouth once a day 05/11 completed Medicati on ID: [id number] Br and Name: Nexium S end Method: [...] 0.4 mg capsule active Medicati on ID: 037253 B rand Name: tamsulos in Send Method: E-Prescr ibed Sub s Allowed: subs OK Medic ationGen ericName : tamsulos in Not Available Not Available Not Available glipizide ER 2.5 mg tablet, extended release 24 hr 05/11 completed Medicati on ID: 91169 Br and Name: glipizid e Send Method: E-Prescr ibed Sub s Allowed: subs OK Medic ationGen ericName : glipizid e Not Available Not Available Not Available warfarin 2 mg tablet active Medicati on ID: 362735 B rand Name: warfarin Send Method: E-Prescr ibed Sub s Allowed: subs OK Medic ationGen ericName : warfarin Not Available Not Available Not Available fluticaso ne propionat e 50 mcg/actua tion nasal spray,andres pension 05/11 completed Medicati on ID: [id number] D uration Value: 30 Brand Name: fluticas one propiona te Send Method: E-Prescr ibed Sub s Allowed: subs OK Speci al Instruct ion: USE 1 SPRAY IN EACH NOSTRIL TWICE A DAY Medi cationGe nericNam e: fluticas one propiona te Not Available Not Available Not Available metformin ER 500 mg tablet,ex tended release 24 hr active Medicati on ID: 339696 B rand Name: metformi n Send Method: E-Prescr ibed Sub s Allowed: subs OK Medic ationGen ericName : metformi n Not Available Not Available Not Available ipratropi um bromide 21 mcg (0.03 %) nasal spray Inhale 2 spray into both nostrils three times a day as directed 05/11 completed Medicati on ID: 31158 Br and Name: Jessica Send Method: E-Prescr [...] mcg tablet 05/11 completed Medicati on ID: 61911 Br and Name: Centrum Silver Ultra Men's Se nd Method: E-Prescr ibed Sub s Allowed: subs OK Medic ationGen ericName : Centrum Silver Ultra Men's Not Available Not Available Not Available Vitals Date Recorded Body height Body mass index (BMI) Body weight Provider Name and Address Organization Details Last Updated DateTime 08/14/2023 172.72 cm 38 kg/m2 623949.09 g Tevin Koch [place] - [facility] 08/14/2023 10:01:01 Social History None recorded. Functional Status None recorded. Mental Status None recorded. Family History Nothing Reported. Medical History No medical history recorded. Past Encounters Encounter ID Performer Location Encounter Start Date Encounter Closed Date Diagnosis/Indication Diagnosis SNOMED-CT Code Diagnosis ICD10 Code Diagnosis Note [id number] RAMYA ARNDT MD [facility] [address] 08/14/2023 09:50:50 08/14/2023 10:16:30 Benign neoplasm of parotid gland 10493796 D11.0 Health Concerns Section Related Observation LastModified by Organization Detai ls LastModified Time None Recorded Concern Status LastModified by Organization Details LastModified Time None Recorded Advance Directives Directive None Recorded Payers Encounter Date Sequence Insurance Name Policy Number Policy Casarez Covered Member ID Casarez Member ID Guarantor Name 08/14/2023 2 [place] Leonardo Pang [id number] Leonardo Pang 08/14/2023 1 [place] [employer] Leonardo Pang [id number] Leonardo Pang Notes Date Note Type Note Provider Name and Address Organization Details Recorded Time 08/14/2023 text/html left parotid FNA 05/17/21 - warthin tumorct neck w contrast at [place] 04/27/21left parotid 2.8cm mass. compare with prior [...] cochlear implant with Dr Demetrio ARNDT MD [address] [place] [address], [address], [facility] - [facility] 08/14/2023 10:15:11
--- OUTSIDE RECORDS SUMMARY | 2024-05-17 15:26 | XMS_ITS ---
Author Organization [facility] Address [address] [place] [address] Care Team Providers Care Grocery Carrier Name Role Phone Darien Bruner MD Primary Care Provider Unavaila Ronel Reaves Unavailable [phone] REASON FOR VISIT r/s 02/22 Encounters Encounter Location Date Provider Diagnosis [address] [address] 02/12/2024 Ronel Leon Plan Of Treatment Next Appt Details Provider Name:Ronel A Edward , 07/29/2024 09:00:00 AM, [address] [place], [address], Progress Notes * Leonardo GRIFFINDOB:1950 (73 yo M)Acc No.[id number]:02/12/2024 Patient:?Leonardo GRIFFIN :1950???Age:73 Y???Sex:Male Address:[address] [place] [address], [address] * true * Date:? Generated for Printi ng/Famargog/eTransmitting on:?05/17/2024 03:26 PM EDT
--- OUTSIDE RECORDS SUMMARY | 2024-05-17 15:27 | XMS_ITS | Patient Health Record ---
[facility] Address [address] [facility] [place] [address] Care Team Providers Care Market Director Name Role Phone Darien Bruner MD Primary Care Provider Unavaila Ronel Reaves Unavailable [phone] Allergies Allergen (clinical drug ingredient) Drug/Non Drug [...] Problem Acquired hammer toe of right foot (8868897958003946 ) Other hammer toe(s) (acquired), right foot (M20.41) Active confirmed Problem Acquired hammer toe of left foot (0414417202266696 ) Other hammer toe(s) (acquired), left foot (M20.42) Active confirmed Problem Plantar wart (27606982) Plantar wart (B07.0) Active confirmed Problem Ulcer of toe (743711111) Non-pressure chronic ulcer of other part of left foot limited to breakdown of skin (L97.521) Active confirmed Problem Ulcer of toe (621924944) Non-pressure chronic ulcer of other part of right foot limited to breakdown of skin (L97.511) Active confirmed Problem Acquired left hallux valgus (024852908161254) Hallux valgus (acquired), left foot (M20.12) Active confirmed Problem Acquired right hallux valgus (373906129701880) Hallux valgus (acquired), right foot (M20.11) Active confirmed Problem Polyneuropathy due to type 2 diabetes mellitus (085990715) Type 2 diabetes mellitus with diabetic polyneuropathy (E11.42) Active confirmed Problem Neuropathic arthropathy due to diabetes mellitus (531463916) Charcot foot due to diabetes mellitus (E11.610) Active confirmed Problem Difficulty balancing (252225855) Unsteady gait (R26.81) Active confirmed Problem Charcot's gait (79189221) Charcot gait (R26.0) Active confirmed Problem Ulcer of toe of right foot (disorder) (1970393287557227 1) Skin ulcer of toe of right foot, limited to breakdown of skin (L97.511) Active confirmed Problem Unstageable pressure injury of right foot (342044592871103) Pressure injury of right foot, unstageable (L89.890) Active confirmed Problem Ulcer of toe of left foot (disorder) (2886102499937369 2) Skin ulcer of toe of left foot, limited to breakdown of skin (L97.521) Active confirmed Problem Stasis dermatitis (38795136) Stasis dermatitis (I87.2) Active confirmed Vital Signs Blood pressure diastolic 60 mm Hg 04/19/2024 Height 5ft8in in 04/19/2024 Blood pressure systolic 120 mm Hg 04/19/2024 Weight 244 lbs 04/19/2024 BMI 37.1 kg/m2 04/19/2024 Procedures Procedure Date Ordered Date Performed Result Body Sit e 41557-RBXNDZC NAIL, 6 OR MORE 06/19/2023 N/A 50778-Zqki Destruction, 1-14 06/19/2023 N/A 39264-KPRY SKIN LESIONS, OVER 4 06/19/2023 N/A 78987-XQTUCVU NAIL, 6 OR MORE 10/23/2023 N/A 63623-NMWJ SKIN LESIONS, OVER 4 10/23/2023 N/A 87720-QZAILAJ NAIL, 6 OR MORE 04/19/2024 N/A 01749-KUOP SKIN LESIONS, OVER 4 04/19/2024 N/A Encounters Encounter Location Date Provider Diagnosis [address] [address] 06/19/2023 Ronel Black Type 2 diabetes mellitus with diabetic polyneuropathy E11.42 ; Tinea unguium B35.1 ; Plantar wart B07.0 ; Pain in right foot M79.671 ; Charcot gait R26.0 ; Edema, lower extremity R60.0 and Stasis dermatitis I87.[address] [address] 10/23/2023 Ronel Black Type 2 diabetes mellitus with diabetic polyneuropathy E11.42 ; Tinea unguium B35.1 ; Charcot gait R26.0 and Pressure injury of right foot, unstageable L89.[address] [address] 04/19/2024 Ronel Black Type 2 diabetes mellitus with diabetic polyneuropathy E11.42 ; Charcot foot due to diabetes mellitus E11.610 ; Tinea unguium B35.1 ; Charcot gait R26.0 ; Skin ulcer of toe of right foot, limited to breakdown of skin L97.511 and Subungual contusion of toe of left foot, initial encounter S90.222A [facility] [address] [place] [address] 02/12/2024 Ronel Leon Assessments Encounter Date Diagnosis (ICD Code) Assessment Notes Treatment Notes Treatment Clinical Notes Section Notes 06/19/2023 Type 2 diabetes mellitus with diabetic polyneuropathy (ICD-10 - E11.42) 10/23/2023 Tinea unguium (ICD-10 - B35.1) 10/23/2023 Type 2 diabetes mellitus with diabetic polyneuropathy (ICD-10 - E11.42) 06/19/2023 Tinea unguium (ICD-10 - B35.1) 04/19/2024 Type 2 diabetes mellitus with diabetic polyneuropathy (ICD-10 - E11.42) 04/19/2024 Charcot foot due to diabetes mellitus (ICD-10 - E11.610) 06/19/2023 Plantar wart (ICD-10 - B07.0) 04/19/2024 Tinea unguium (ICD-10 - B35.1) 10/23/2023 Charcot gait (ICD-10 - R26.0) 10/23/2023 Pressure injury of right foot, unstageable (ICD-10 - L89.890) 06/19/2023 Pain in right foot (ICD-10 - M79.671) 04/19/2024 Charcot gait (ICD-10 - R26.0) 04/19/2024 Skin ulcer of toe of right foot, limited to breakdown of skin (ICD-10 - L97.511) 06/19/2023 Charcot gait (ICD-10 - R26.0) 06/19/2023 Edema, lower extremity (ICD-10 - R60.0) 04/19/2024 Subungual contusion of toe of left foot, initial encounter (ICD-10 - S90.222A) 06/19/2023 Stasis dermatitis (ICD-10 - I87.2) Plan Of Treatment Pending Test Test Name Order Date Hemoglobin A1c 06/04/2018 39194-FDCJMSP NAIL, 6 OR MORE 04/19/2024 14558-JETUTRQ NAIL, 6 OR MORE 12/05/2010 75267-QOVKOMO NAIL, 6 OR MORE 02/06/2011 41937-MLOTNAZ NAIL, 6 OR MORE 04/22/2011 15672-XJYHMPF NAIL, 6 OR MORE 07/15/2011 45997-WORREFI NAIL, 6 OR MORE 09/25/2011 60916-NJRNWSW NAIL, 6 OR MORE 10/28/2011 27128-LGPEMWB NAIL, 6 OR MORE 01/16/2012 44474-YELBKEQ NAIL, 6 OR MORE 04/08/2012 29537-LGQEBCP NAIL, 6 OR MORE 06/24/2012 75609-UVNEQZR NAIL, 6 OR MORE 09/23/2012 07512-XEQJLUS NAIL, 6 OR MORE 12/28/2012 28160-CMKTPDS NAIL, 6 OR MORE 03/31/2013 73419-TXCFQOS NAIL, 6 OR MORE 06/14/2013 33111-LTMQQAX NAIL, 6 OR MORE 09/20/2013 51619-ANYLCKB NAIL, 6 OR MORE 12/22/2013 74730-CKFOOEX NAIL, 6 OR MORE 03/21/2014 35597-UBMXZAL NAIL, 6 OR MORE 06/20/2014 57236-LGBPRUI NAIL, 6 OR MORE 09/21/2014 07172-MYVSPTU NAIL, 6 OR MORE 11/30/2014 79321-XPZRMDA NAIL, 6 OR MORE 02/06/2015 86073-DMTJUIR NAIL, 6 OR MORE 05/01/2015 35709-NXBIVMS NAIL, 6 OR MORE 07/10/2015 75347-HKMVISZ NAIL, 6 OR MORE 10/02/2015 68500-XTOUKGU NAIL, 6 OR MORE 12/14/2015 18746-QBZMBYD NAIL, 6 OR MORE 02/22/2016 44388-VSUVTQA NAIL, 6 OR MORE 05/30/2016 43510-WQEZUAI NAIL, 6 OR MORE 08/29/2016 59399-VMELTNI NAIL, 6 OR MORE 11/28/2016 81411-LTVSRRX NAIL, 6 OR MORE 02/27/2017 21591-AFYPAOY NAIL, 6 OR MORE 05/29/2017 45560-WRHHJLF NAIL, 6 OR MORE 08/28/2017 39467-MPWVPUY NAIL, 6 OR MORE 03/12/2018 35486-IVIBEUU NAIL, 6 OR MORE 11/27/2017 32189-OITCPCZ NAIL, 6 OR MORE 06/04/2018 93610-IODFMIS NAIL, 6 OR MORE 07/12/2021 82000-HAMJUJZ NAIL, 6 OR MORE 10/25/2021 78973-ZPODMFH NAIL, 6 OR MORE 02/07/2022 91135-TYMYKZS NAIL, 6 OR MORE 06/13/2022 31457-WEXVOPV NAIL, 6 OR MORE 10/17/2022 43412-AUDRDML NAIL, 6 OR MORE 02/17/2023 99272-TEPPRPT NAIL, 6 OR MORE 06/19/2023 97304-ZLDAWQW NAIL, 6 OR MORE 10/23/2023 29873-Sfrk Destruction, 1-02/17/2023 15055-Lhzh Destruction, 1-06/19/2023 19382-Xorr Destruction, -06/13/2022 77719-Grbv Destruction, -10/17/2022 90760-Hkjzjzmx Plate 07/12/2021 55655-Iiowdtdi Plate 10/25/2021 26806-Yfymochj Plate 05/29/2017 09430-Sumoflgj Plate 08/29/2016 43165-Aditkknf Plate 11/30/2014 53068-Qactokdd Plate 09/21/2014 92737-Ybiuruly Plate 06/14/2013 60304-Xdeopopt Plate 06/20/2014 74008-Susbggjg Plate 03/21/2014 60127-Dabzggzv Plate 12/22/2013 92497-Lnmdxcnr Plate 09/20/2013 66612- Debride <25 sq cm 09/20/2013 56050- Debride <25 sq cm 12/22/2013 30154- Debride <25 sq cm 06/14/2013 33764- Debride <25 sq cm 03/31/2013 98889- Debride <25 sq cm 03/21/2014 53618- Debride <25 sq cm 06/20/2014 26914- Debride <25 sq cm 09/21/2014 87192- Debride <25 sq cm 12/28/2012 66372- Debride <25 sq cm 09/23/2012 52457- Debride <25 sq cm 06/24/2012 11137- Debride <25 sq cm 04/08/2012 14207- Debride <25 sq cm 01/16/2012 60058- Debride <25 sq cm 10/28/2011 51292- Debride <25 sq cm 09/02/2011 65615- Debride <25 sq cm 09/25/2011 83653- Debride <25 sq cm 12/26/2010 17792- Debride <25 sq cm 02/22/2016 85545- Debride <25 sq cm 12/14/2015 60195- Debride <25 sq cm 10/02/2015 49338- Debride <25 sq cm 10/12/2015 03742- Debride <25 sq cm 10/06/2014 94751- Debride <25 sq cm 05/30/2016 19585- Debride <25 sq cm 02/27/2017 43891- Debride <25 sq cm 10/25/2021 93396- Debride <25 sq cm 02/07/2022 65406- Debride <25 sq cm 10/17/2022 71113-YQOHPRO SKIN/TISSUE 03/12/2018 35812-STPRBBQ SKIN/TISSUE 06/04/2018 57488-FUCGOWF SKIN/TISSUE 11/27/2011 16358-XYJHRHE SKIN/TISSUE 12/11/2011 75103-QHAXFIM SKIN/TISSUE 10/06/2014 24997 I&D ABSCESS- SIMPLE,SINGLE 015 46588 I&D ABSCESS- SIMPLE,SINGLE 011 04309 I&D ABSCESS- SIMPLE,SINGLE 015 68016-JJPA SKIN LESIONS, OVER 4 12/01/19 15 30624-NHNW SKIN LESIONS, OVER 4 02/07/20 15 47129-PQPF SKIN LESIONS, OVER 4 07/10/19 16 76082-VUEN SKIN LESIONS, OVER 4 05/01/19 16 18860-DZII SKIN LESIONS, OVER 4 10/02/19 16 53125-ZHMM SKIN LESIONS, OVER 4 12/14/19 16 07866-XSSR SKIN LESIONS, OVER 4 02/22/20 16 82634-OYAV SKIN LESIONS, OVER 4 02/28/20 17 48843-IQUG SKIN LESIONS, OVER 4 05/30/19 18 62611-QSXA SKIN LESIONS, OVER 4 08/29/19 18 81795-OFWA SKIN LESIONS, OVER 4 11/28/19 18 78406-QZIG SKIN LESIONS, OVER 4 05/31/19 17 79944-FUJU SKIN LESIONS, OVER 4 11/29/19 17 79460-KHBQ SKIN LESIONS, OVER 4 06/05/19 19 51134-IKJU SKIN LESIONS, OVER 4 03/12/19 19 95948-APJS SKIN LESIONS, OVER 4 10/18/19 23 08888-YBIC SKIN LESIONS, OVER 4 06/14/19 23 33733-NOJZ SKIN LESIONS, OVER 4 02/18/20 23 33636-NICA SKIN LESIONS, OVER 4 06/19/19 24 50621-FZRO SKIN LESIONS, OVER 4 04/19/19 25 23696-DOUP SKIN LESIONS, OVER 4 10/23/19 24 07368-XVGX SKIN LESIONS, OVER 4 12/06/19 11 32963-MRXI SKIN LESIONS, OVER 4 02/07/20 11 66077-RELT SKIN LESIONS, OVER 4 07/15/19 12 79929-HWCZ SKIN LESIONS, OVER 4 04/22/19 12 60562-DDZF SKIN LESIONS, OVER 4 09/25/19 12 85557-XRWF SKIN LESIONS, OVER 4 10/28/19 12 79308-VEDN SKIN LESIONS, OVER 4 09/24/19 13 78476-QRFG SKIN LESIONS, OVER 4 12/29/19 13 28492-XCTM SKIN LESIONS, OVER 4 01/16/20 12 28717-LRWQ SKIN LESIONS, OVER 4 04/08/19 13 11765-RTCS SKIN LESIONS, OVER 4 06/25/19 13 18548-EQPA SKIN LESIONS, OVER 4 09/22/19 15 65123-LKZZ SKIN LESIONS, OVER 4 03/21/19 15 97859-DAKU SKIN LESIONS, OVER 4 06/21/19 15 20320-QJOQ SKIN LESIONS, OVER 4 03/31/19 14 41370-ZPDF SKIN LESIONS, OVER 4 06/15/19 14 26925-HZDO SKIN LESIONS, OVER 4 12/23/19 14 99235-UQHL SKIN LESIONS, OVER 4 09/21/19 14 32992-XWUZ SKIN LESIONS, 2 TO 4 12/23/19 14 74781-NVJL SKIN LESIONS, 2 TO 4 06/15/19 14 99145-FKNA SKIN LESIONS, 2 TO 4 03/31/19 14 27654-MFYQ SKIN LESIONS, 2 TO 4 06/21/19 15 71134-ZCPK SKIN LESIONS, 2 TO 4 03/21/19 15 30249-YKUE SKIN LESIONS, 2 TO 4 12/29/19 13 08218-DVJB SKIN LESIONS, 2 TO 4 09/24/19 13 51317-CGTK SKIN LESIONS, 2 TO 4 07/13/19 22 71558-MFVI SKIN LESIONS, 2 TO 4 02/08/20 22 98422-LMJZ SKIN LESIONS, 2 TO 4 10/26/19 22 52232-UIWF SKIN LESIONS, 2 TO 4 08/30/19 17 70368-Yqaj. Subungual Hematoma 2 95748-Uxwo. Subungual Hematoma 2 Next Appt Details Provider Name:Ronel Leon , 07/29/2024 09:00:00 AM, [address] [place], [address], Insurance Providers Payer Name Payer Address Payer Phone Subscriber Number Group Number Insured Name Patient Relationship to Insured Coverage Start Date Coverage End Date Medicare [facility] [employer] [address] [place] [address] [id number] Leonardo Pang Self - patient is the insured [employer] [address] [place] [address] [phone] [id number] Leonardo Pang Self - patient is the insured Medical (General) History Medical History History ICD Code osteoporosis hypertension diabetes mellitus back, hip, knee pain Arthritis Cholesterol Surgical History Surgery Date(Month/Year) hip surgery 119/1996 cocculer ear implant 12/2013 colonoscopy 05/2017 left knee replacement 12/27 Hospitalization History Reason Date(Month/Year) [facility]- [facility] 08[facility]28[facility]23 [facility] for [facility] 10/23/19 12
--- OUTSIDE RECORDS SUMMARY | 2024-05-17 15:27 | XMS_ITS | Patient Health Record ---
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 Name Role Phone Darien Burner MD Primary Care Provider Griffin Alvarenga Jr Unavailable Allergies Allergen (clinical drug ingredient) Drug/Non Drug Allergy documented on EMR Reaction Allergy Type Onset Date Status PCN (uncoded) Unknown Allergy Active Reason For Referral No Information Medications Medication [...] 1 tablet Orally Once a day Active Immunizations Vaccine Route Administration Date Status Comme nts Influenza Unknown 01/01/2022 Administered Problems Problem Type SNOMED Code ICD Code Onset Dates Problem Status W/U Status Risk Notes Problem 672537567 Colon cancer screening (Z12.11) Active confirmed Problem 477360308 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 (Z79.01) Active confirmed Problem 078863723 Personal history of colonic polyps (Z86.010) Active confirmed Problem 01385824 Encounter for ot her preprocedural examination (Z01.818) Active confirmed Problem 145006448 residential (curre nt) use of insulin (Z79.4) Active confirmed Plan Of Treatment Pending Test Test Name Order Date XR BARIUM ENEMA 11/18/2022 Future Test Test Name Order Date COLONOSCOPY 07/31/2011 COLONOSCOPY 02/07/2017 COLONOSCOPY 08/28/2022 Insurance Providers Payer Name Payer Address Payer Phone Subscriber Number Group Number Insured Name Patient Relationship to Insured Coverage Start Date Coverage End Date MEDICARE OF [place] [address] [place] [address] [phone] [id number] KAZ GRIFFIN Self - patient is the insured [employer] CLAIMS [address] [place] [address] [id number] KAZ GRIFFIN Self - patient is the insured Medical (General) History Medical History History ICD Code EGD 08/11/2002 Gastroesophageal reflux dise ase, EGD 08/11/02, no H. pylori or Dsouza's esophagus Lipoma removals Hyperlipidemia Diabetes Mellitus knee pain Bilateral hip replacement Atrial fibrillation Arthritis Surgical History Surgery Date(Month/Year) Bilateral hip replacement shoulder replacement-left cochlear implant 2 knee replacements
--- OUTSIDE RECORDS SUMMARY | 2024-05-17 15:27 | XMS_ITS | Clinical Summary ---
Author Organization [facility] Address [address] [place] [address] Care Team Providers Care Defense Attorney Name Role Phone Darien Bruner MD Primary Care Provider [phone] Allergies Active Allergy Reactions Criticality Noted Date Comments Penicillins Unknown/Patient and Family Unable to Define Medium 02/10/2024 Medications Medication Sig Dispensed Refills Start Date End Date Status SUPPLY DME MISCIndications:Pain in right ankle and joints of right foot RT ANKLE / Foot [facility] Boot Dx: Diabetic Neuropathy, RT Plantar foot Ulcer 1 each 02/10/2024 Active Social History Tobacco Use Types Packs/Day Years [...] on patient's age to complete this topic Care Teams Defense Attorney Relationship Specialty Start Date End Date Darien Bruner MD [address] [place] [address] [address] [place], [place] [id number] PCP - General 01/19/24
--- OUTSIDE RECORDS SUMMARY | 2024-05-17 15:27 | XMS_ITS ---
Author Organization [facility] Address [address] [place] [address] Care Team Providers Care Component Assembler Supervisor Name Role Phone Darien Bruner MD Primary Care Provider Griffin Alvarenga Jr [phone] REASON FOR VISIT Barium enema Encounters Encounter Location Date Provider Diagnosis [facility] [address] [place] [address] 11/18/2022 Griffin Donahue Jr Colon cancer screening Z12.11 Assessments Encounter Date Diagnosis (ICD Code) Assessment Notes Treatment Notes Treatment Clinical Notes Section Notes 11/18/2022 Colon cancer screening (ICD-10 - Z12.11) Plan Of Treatment Pending Test Test Name Order Date XR BARIUM ENEMA 11/18/2022 Progress Notes * KAZ GRIFFINDOB:1950 (72 yo M)Acc No.[id number]:11/18/2022 Patient:?KAZ GRIFFIN :1950???Age:72 Y???Sex:Male Address:[address] [place] [address] Subjective: * Chief Complaints: * ???Barium enema * Medical History:? * Surgical History:? * Hospitalization/Major Diagno stic Procedure:? * Medications:? Objective: Assessment: * Assessment: 1.?Colon cancer screening - Z12.11 (Primary)? Plan: * Treatment: * * Procedure Codes:? * true * Date:? Generated for Printi ng/Faxing/eTransmitting on:?05/17/2024 03:26 PM EDT
--- OUTSIDE RECORDS SUMMARY | 2024-05-17 15:27 | XMS_ITS ---
Author Organization [facility] Address [address] [place] [address] Care Team Providers Care Burn Out Tender Lace Name Role Phone Darien Bruner MD Primary Care Provider UnavailRonel Jimenez Unavailable [phone] Encounters Encounter Location Date Provider Diagnosis [address] [address] 02/23/2024 Ronel Leon Plan Of Treatment Next Appt Details Provider Name:Ronel Leon , 07/29/2024 09:00:00 AM, [address] [place], [address], Progress Notes * Leonardo GRIFFINDOB:1950 (74 yo M)Acc No.[id number]:02/23/2024 Progress Note Patient:?Leonardo GRIFFIN Provider:?Ronel Leon DPM :1950???Age:73 Y???Sex:Male En e:02/23/2024 Address:[address] [place] [address] [place], [id number] Pcp:Darien Bruner MD Subjective: * Chief Complaints: [...] Leon DPM Date:?2023 Generated for René temple/Melissa/Patel on:?05/17/2024 03:26 PM EDT
== END 2024-05-17 15:06 | disposition home or self-care (01) ==
PROVIDERS: PCP Internal Medicine; Visit Provider Internal Medicine
DX: R78.81 Bacteremia (principal); B95.61 Methicillin susceptible Staphylococcus aureus infection as the cause of diseases classified elsewhere; L03.115 Cellulitis of right lower limb
CPT/HCPCS: 99213

== ENCOUNTER → 2024-05-17 13:40 | Outpatient (BNVA) | payer MEDICARE, SELFPAY | PROVIDERS: PCP Internal Medicine; Visit Provider Internal Medicine | DX: R78.81 Bacteremia (principal); B95.61 Methicillin susceptible Staphylococcus aureus infection as the cause of diseases classified elsewhere; L03.115 Cellulitis of right lower limb | CPT/HCPCS: 99212 ==

== ENCOUNTER 2024-06-18 08:00 | Outpatient (AMB) | payer MEDICARE, SELFPAY ==
--- OUTSIDE RECORDS SUMMARY | 2024-06-18 08:03 | XMS_ITS ---
Author Organization [facility] Address [address] [place] [address] Care Team Providers Care Salvage Winder And Inspector Name Role Phone Darien Bruner MD Primary Care Provider Unavaila Ronel Reaves Unavailable [phone] REASON FOR VISIT r/s 02/22 Encounters Encounter Location Date Provider Diagnosis [address] [address] 02/12/2024 Ronel Leon Plan Of Treatment Next Appt Details Provider Name:Ronel A Edward , 07/29/2024 09:00:00 AM, [address] [place], [address], Progress Notes * Leonardo GRIFFINDOB:1950 (73 yo M)Acc No.[id number]:02/12/2024 Patient:?Leonardo GRIFFIN :1950???Age:73 Y???Sex:Male Address:[address] [place] [address], [address] * true * Date:? Generated for Printi ng/Famargog/eTransmitting on:?06/18/2024 08:02 AM EDT
--- OUTSIDE RECORDS SUMMARY | 2024-06-18 08:03 | XMS_ITS | Patient Health Record ---
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
--- OUTSIDE RECORDS SUMMARY | 2024-06-18 08:03 | XMS_ITS ---
Author [facility] Address [address] [facility] [place] [address] Care Team Providers Care Neck Cutter Name Role Phone Darien Bruner MD Primary Care Provider Unavaila ble Black, Ronel Unavailable [phone] Allergies Allergen (clinical drug ingredient) Drug/Non Drug [...] Ordered Date Performed Result Body Sit e 82034-UTVMDXA NAIL, 6 OR MORE 04/19/2024 N/A 89934-YMPK SKIN LESIONS, OVER 4 04/19/2024 N/A Encounters Encounter Location Date Provider Diagnosis [facility] [address] [place] [address] 04/19/2024 Ronel Black Type 2 diabetes mellitus [...] Treatment Pending Test Test Name Order Date 14547-JZBQBUF NAIL, 6 OR MORE 04/19/2024 48412-JOCR SKIN LESIONS, OVER 4 04/19/19 25 Next Appt Details Follow Up: 4 Months, Reason: Provider Name:Ronel Leon , 07/29/2024 09:00:00 AM, [address] [place] [address], [address], Procedure Notes * Category Sub-Category Detail Notes [...] use of a nail nipper and/or dremel-type carbide grinder, to a more viable healthy nail [...] to maintain effectiveness in symptomatic relief - 53011 Keratoma Treatment Parring or Cutting o f [...] instrumentation by the physician of record - 01856 Progress Notes * Leonardo GRIFFINDOB:1950 (74 yo M)Acc No.[id number]:04/19/2024 Progress Note Patient:?Leonardo GRIFFIN Provider:?Ronel Leon DPM :1950???Age:74 Y???Sex:Male En e:04/19/2024 Address:[address] [place], [place] [phone] Pcp:Darien Bruner MD Subjective: * Chief Complaints: * ???At Risk FootcareOpen sore * HPI: ???At Risk footcare:?Pt States Last PCP Visit:?Date?03/30/2024 ???Skin problems:?Pt States PCP Visit: ?DATE?03/30/2024 ?Location:?Midfoot , Bottom , Right, top 2,3 digit right.?Treatments:?Pt relates hospitalization end of September for open wound with infection. [facility] [place] [facility] [...] knee replacement 12/27 * Hospitalization/Major Diagno stic Procedure:?[facility]- Lesion on foot [...] ?Marital status: . ?Occupation: retired- Disabled before prison. * Medications:?TakingmetOLazon e Vitamin D Furosemide 40 [...] - S90.222A??? Plan: * Treatment: 2.?Tinea unguium?Procedure: 77833-UHPQTJN NAIL, 6 OR MORE * Procedures:?Debride Nail [...] use of a nail nipper and/or dremel-type carbide grinder, to a more viable healthy nail [...] to maintain effectiveness in symptomatic relief - 60822.?Keratoma Treatment:?Parring or Cutting of Benign Hyperkeratotic Lesion(s)?(-57) [...] instrumentation by the physician of record - 85284.? * Procedure Codes:?42472 DEBRI DE NAIL, 6 OR MORE, Modifiers: XS 42161 TRIM SKIN LESIONS, OVER 4, Modifiers: XS [...] Leon DPM Date:?2024 Generated for René temple/Melissa/Audreyitting on:?06/18/2024 08:02 AM EDT History and Physical Notes * HPI (History of Present Illness) Category Sub-Category Detail Notes Category Not es Skin problems Location: Midfoot , Bottom , Right, top 2,3 digit right [facility]: [facility]. pt is presently being [facility] [place] and [facility] is coming to the house [...] Charcot collapse /destruction noted at MTJ b/l FOOTWEAR EVALUATION: , good condition, e xhibit proper fit and accommodation for pedal deformities. [...]
--- OUTSIDE RECORDS SUMMARY | 2024-06-18 08:03 | XMS_ITS | Patient Health Record ---
Author Organization [facility] Address [address] [facility] [place] [place] [address] Care Team Providers Care Beet Worker Name Role Phone Darien Bruner MD Primary Care Provider Unavaila Ronel Reaves Unavailable [phone] Allergies Allergen (clinical drug ingredient) Drug/Non Drug [...] Problem Acquired hammer toe of right foot (5295935698057640 ) Other hammer toe(s) (acquired), right foot (M20.41) Active confirmed Problem Acquired hammer toe of left foot (5945464336095835 ) Other hammer toe(s) (acquired), left foot (M20.42) Active confirmed Problem Plantar wart (79535996) Plantar wart (B07.0) Active confirmed Problem Ulcer of toe (052530287) Non-pressure chronic ulcer of other part of left foot limited to breakdown of skin (L97.521) Active confirmed Problem Ulcer of toe (722004328) Non-pressure chronic ulcer of other part of right foot limited to breakdown of skin (L97.511) Active confirmed Problem Acquired left hallux valgus (899724388615734) Hallux valgus (acquired), left foot (M20.12) Active confirmed Problem Acquired right hallux valgus (990733090360690) Hallux valgus (acquired), right foot (M20.11) Active confirmed Problem Polyneuropathy due to type 2 diabetes mellitus (647940341) Type 2 diabetes mellitus with diabetic polyneuropathy (E11.42) Active confirmed Problem Neuropathic arthropathy due to diabetes mellitus (053716405) Charcot foot due to diabetes mellitus (E11.610) Active confirmed Problem Difficulty balancing (312689515) Unsteady gait (R26.81) Active confirmed Problem Charcot's gait (08597153) Charcot gait (R26.0) Active confirmed Problem Ulcer of toe of right foot (disorder) (0332411743990091 1) Skin ulcer of toe of right foot, limited to breakdown of skin (L97.511) Active confirmed Problem Unstageable pressure injury of right foot (171269089600039) Pressure injury of right foot, unstageable (L89.890) Active confirmed Problem Ulcer of toe of left foot (disorder) (1508775924371982 2) Skin ulcer of toe of left foot, limited to breakdown of skin (L97.521) Active confirmed Problem Stasis dermatitis (56625915) Stasis dermatitis (I87.2) Active confirmed Vital Signs Blood pressure diastolic 60 mm Hg 04/19/2024 Height 5ft8in in 04/19/2024 Blood pressure systolic 120 mm Hg 04/19/2024 Weight 244 lbs 04/19/2024 BMI 37.1 kg/m2 04/19/2024 Procedures Procedure Date Ordered Date Performed Result Body Sit e 78770-FIIKLFI NAIL, 6 OR MORE 06/19/2023 N/A 79917-Fcpo Destruction, 1-14 06/19/2023 N/A 42857-IPPB SKIN LESIONS, OVER 4 06/19/2023 N/A 17251-MJDMCNI NAIL, 6 OR MORE 10/23/2023 N/A 07728-BTNU SKIN LESIONS, OVER 4 10/23/2023 N/A 08153-ODRRGIU NAIL, 6 OR MORE 04/19/2024 N/A 05290-ZPKX SKIN LESIONS, OVER 4 04/19/2024 N/A Encounters Encounter Location Date Provider Diagnosis [address] [address] 06/19/2023 Ronel Black Type 2 diabetes mellitus with diabetic polyneuropathy E11.42 ; Tinea unguium B35.1 ; Plantar wart B07.0 ; Pain in right foot M79.671 ; Charcot gait R26.0 ; Edema, lower extremity R60.0 and Stasis dermatitis I87.[address] [address] 10/23/2023 Ronel Black Type 2 diabetes mellitus with diabetic polyneuropathy E11.42 ; Tinea unguium B35.1 ; Charcot gait R26.0 and Pressure injury of right foot, unstageable L89.[address] [address] 04/19/2024 Ronel Black Type 2 diabetes mellitus with diabetic polyneuropathy E11.42 ; Charcot foot due to diabetes mellitus E11.610 ; Tinea unguium B35.1 ; Charcot gait R26.0 ; Skin ulcer of toe of right foot, limited to breakdown of skin L97.511 and Subungual contusion of toe of left foot, initial encounter S90.222A [facility] [address] [place] [address] 02/12/2024 Ronel Leon Assessments Encounter Date Diagnosis [...] Test Name Order Date Hemoglobin A1c 06/04/2018 17403-CVIQPUC NAIL, 6 OR MORE 04/19/2024 35339-WWXRGSO NAIL, 6 OR MORE 12/05/2010 91623-USIKRHJ NAIL, 6 OR MORE 02/06/2011 27249-DWUPNEY NAIL, 6 OR MORE 04/22/2011 06165-NZDSJGX NAIL, 6 OR MORE 07/15/2011 26218-FYYXYWI NAIL, 6 OR MORE 09/25/2011 01107-LGYFICQ NAIL, 6 OR MORE 10/28/2011 55533-RUWBXUZ NAIL, 6 OR MORE 01/16/2012 73538-TPWCAAJ NAIL, 6 OR MORE 04/08/2012 81318-BAVIOHA NAIL, 6 OR MORE 06/24/2012 13668-ANWDVYH NAIL, 6 OR MORE 09/23/2012 75662-UCFNQGR NAIL, 6 OR MORE 12/28/2012 13394-TOFGTFM NAIL, 6 OR MORE 03/31/2013 45725-DIOVWLN NAIL, 6 OR MORE 06/14/2013 12151-SDVOLNI NAIL, 6 OR MORE 09/20/2013 77641-VEIRPEQ NAIL, 6 OR MORE 12/22/2013 99878-ZRQEKZW NAIL, 6 OR MORE 03/21/2014 67121-UHVKFRA NAIL, 6 OR MORE 06/20/2014 70787-FMMWNWA NAIL, 6 OR MORE 09/21/2014 79904-OKBIMAM NAIL, 6 OR MORE 11/30/2014 86248-ZJLYADV NAIL, 6 OR MORE 02/06/2015 60556-IJSHTHZ NAIL, 6 OR MORE 05/01/2015 46149-NVVFPFE NAIL, 6 OR MORE 07/10/2015 25601-BPDVRPA NAIL, 6 OR MORE 10/02/2015 36804-OBVJTKZ NAIL, 6 OR MORE 12/14/2015 05768-EXNWNYZ NAIL, 6 OR MORE 02/22/2016 72342-RDFMRSZ NAIL, 6 OR MORE 05/30/2016 15954-GPCXLJT NAIL, 6 OR MORE 08/29/2016 19558-SMNGLCK NAIL, 6 OR MORE 11/28/2016 84969-PBFEDUR NAIL, 6 OR MORE 02/27/2017 00857-LUQPSWV NAIL, 6 OR MORE 05/29/2017 41203-YTLNWIC NAIL, 6 OR MORE 08/28/2017 63645-DYCSFXQ NAIL, 6 OR MORE 03/12/2018 64841-GHCWCEU NAIL, 6 OR MORE 11/27/2017 46564-GEVQUEJ NAIL, 6 OR MORE 06/04/2018 83030-NRZAZVA NAIL, 6 OR MORE 07/12/2021 94505-AJTXAXG NAIL, 6 OR MORE 10/25/2021 98601-FQCOTNC NAIL, 6 OR MORE 02/07/2022 89732-VTLDHPK NAIL, 6 OR MORE 06/13/2022 27812-JYRZSMP NAIL, 6 OR MORE 10/17/2022 70997-EKOZBMU NAIL, 6 OR MORE 02/17/2023 26574-JEPMBQO NAIL, 6 OR MORE 06/19/2023 17449-PYZEWMZ NAIL, 6 OR MORE 10/23/2023 16650-Bopx Destruction, 1-02/17/2023 31888-Gbcw Destruction, 1-06/19/2023 70320-Mbcl Destruction, -06/13/2022 73677-Bqgo Destruction, -10/17/2022 91130-Inmkaiom Plate 07/12/2021 56458-Ersiifqc Plate 10/25/2021 86412-Yrfzzeba Plate 05/29/2017 48652-Stemumzf Plate 08/29/2016 40368-Btuvwfeq Plate 11/30/2014 47081-Djjyrsbd Plate 09/21/2014 03213-Ptlfzvpf Plate 06/14/2013 10633-Uudygecx Plate 06/20/2014 58950-Uadeqkfb Plate 03/21/2014 05322-Oamzefus Plate 12/22/2013 72377-Dzrkuzsb Plate 09/20/2013 77486- Debride <25 sq cm 09/20/2013 37932- Debride <25 sq cm 12/22/2013 43514- Debride <25 sq cm 06/14/2013 77392- Debride <25 sq cm 03/31/2013 02346- Debride <25 sq cm 03/21/2014 54118- Debride <25 sq cm 06/20/2014 73254- Debride <25 sq cm 09/21/2014 77618- Debride <25 sq cm 12/28/2012 45175- Debride <25 sq cm 09/23/2012 01223- Debride <25 sq cm 06/24/2012 18336- Debride <25 sq cm 04/08/2012 97708- Debride <25 sq cm 01/16/2012 70798- Debride <25 sq cm 10/28/2011 18848- Debride <25 sq cm 09/02/2011 35157- Debride <25 sq cm 09/25/2011 79799- Debride <25 sq cm 12/26/2010 51559- Debride <25 sq cm 02/22/2016 82140- Debride <25 sq cm 12/14/2015 81878- Debride <25 sq cm 10/02/2015 63583- Debride <25 sq cm 10/12/2015 88948- Debride <25 sq cm 10/06/2014 48456- Debride <25 sq cm 05/30/2016 34364- Debride <25 sq cm 02/27/2017 93460- Debride <25 sq cm 10/25/2021 82691- Debride <25 sq cm 02/07/2022 74839- Debride <25 sq cm 10/17/2022 57659-SZOPNKX SKIN/TISSUE 03/12/2018 84235-WQRDCHZ SKIN/TISSUE 06/04/2018 30826-XKHQNBH SKIN/TISSUE 11/27/2011 21326-WIXEXVC SKIN/TISSUE 12/11/2011 89951-JMRJANO SKIN/TISSUE 10/06/2014 91028 I&D ABSCESS- SIMPLE,SINGLE 015 46103 I&D ABSCESS- SIMPLE,SINGLE 011 27311 I&D ABSCESS- SIMPLE,SINGLE 015 94741-UIPA SKIN LESIONS, OVER 4 12/01/19 15 23885-KUTY SKIN LESIONS, OVER 4 02/07/20 15 62091-EPUB SKIN LESIONS, OVER 4 07/10/19 16 71898-CDQS SKIN LESIONS, OVER 4 05/01/19 16 85403-FTRZ SKIN LESIONS, OVER 4 10/02/19 16 68105-NVYA SKIN LESIONS, OVER 4 12/14/19 16 04722-JNUU SKIN LESIONS, OVER 4 02/22/20 16 38257-VKMM SKIN LESIONS, OVER 4 02/28/20 17 12792-AUEU SKIN LESIONS, OVER 4 05/30/19 18 23764-AFLO SKIN LESIONS, OVER 4 08/29/19 18 32256-VSYV SKIN LESIONS, OVER 4 11/28/19 18 11304-TBOC SKIN LESIONS, OVER 4 05/31/19 17 89712-TRZH SKIN LESIONS, OVER 4 11/29/19 17 22428-LXNX SKIN LESIONS, OVER 4 06/05/19 19 67068-JGBY SKIN LESIONS, OVER 4 03/12/19 19 04807-XIMF SKIN LESIONS, OVER 4 10/18/19 23 00983-LPZX SKIN LESIONS, OVER 4 06/14/19 23 96134-THZT SKIN LESIONS, OVER 4 02/18/20 23 31832-UHZD SKIN LESIONS, OVER 4 06/19/19 24 61536-DYTW SKIN LESIONS, OVER 4 04/19/19 25 34674-UVWG SKIN LESIONS, OVER 4 10/23/19 24 88237-YOBE SKIN LESIONS, OVER 4 12/06/19 11 85483-NUCD SKIN LESIONS, OVER 4 02/07/20 11 11395-GPYV SKIN LESIONS, OVER 4 07/15/19 12 16653-QJVD SKIN LESIONS, OVER 4 04/22/19 12 07686-UHZJ SKIN LESIONS, OVER 4 09/25/19 12 67760-LWRQ SKIN LESIONS, OVER 4 10/28/19 12 20013-OEGX SKIN LESIONS, OVER 4 09/24/19 13 29457-DVHS SKIN LESIONS, OVER 4 12/29/19 13 56658-TBEK SKIN LESIONS, OVER 4 01/16/20 12 20933-MLDX SKIN LESIONS, OVER 4 04/08/19 13 60843-UOBE SKIN LESIONS, OVER 4 06/25/19 13 12540-WAXQ SKIN LESIONS, OVER 4 09/22/19 15 44729-FWJF SKIN LESIONS, OVER 4 03/21/19 15 77216-WQAL SKIN LESIONS, OVER 4 06/21/19 15 32049-GLDB SKIN LESIONS, OVER 4 03/31/19 14 03802-VHQG SKIN LESIONS, OVER 4 06/15/19 14 58236-XFDD SKIN LESIONS, OVER 4 12/23/19 14 04836-OVRD SKIN LESIONS, OVER 4 09/21/19 14 30811-NCXH SKIN LESIONS, 2 TO 4 12/23/19 14 16242-WOCM SKIN LESIONS, 2 TO 4 06/15/19 14 77282-MGZY SKIN LESIONS, 2 TO 4 03/31/19 14 22095-VEDU SKIN LESIONS, 2 TO 4 06/21/19 15 30141-NJMS SKIN LESIONS, 2 TO 4 03/21/19 15 66970-BNQT SKIN LESIONS, 2 TO 4 12/29/19 13 24460-NZKZ SKIN LESIONS, 2 TO 4 09/24/19 13 60761-RZFL SKIN LESIONS, 2 TO 4 07/13/19 22 44528-PIPB SKIN LESIONS, 2 TO 4 02/08/20 22 87363-PCVT SKIN LESIONS, 2 TO 4 10/26/19 22 82053-WOHM SKIN LESIONS, 2 TO 4 08/30/19 17 50667-Atsh. Subungual Hematoma 2 97218-Lhgl. Subungual Hematoma 2 Next Appt Details Provider Name:Ronel Leon , 07/29/2024 09:00:00 AM, [address] [place], [address], Insurance Providers Payer Name Payer Address Payer Phone Subscriber Number Group Number Insured Name Patient Relationship to Insured Coverage Start Date Coverage End Date Medicare [facility] [employer] [address] [place] [address] [id number] Leonardo Pang Self - patient is the insured [employer] [address] [place] [address] [phone] [id number] Leonardo Pang Self - patient is the insured Medical (General) History Medical History History ICD Code osteoporosis hypertension diabetes mellitus back, hip, knee pain Arthritis Cholesterol Surgical History Surgery Date(Month/Year) hip surgery 119/1996 cocculer ear implant 12/2013 colonoscopy 05/2017 left knee replacement 12/27 Hospitalization History Reason Date(Month/Year) [facility]- [facility] on foot 08/28/23 [facility] 10/23/19 12
--- OUTSIDE RECORDS SUMMARY | 2024-06-18 08:03 | XMS_ITS | Data Portability ---
Author Organization [place] [facility], Allergy Address [address] [address] Care Team Providers Care Unishear Operator Name Role Phone EMMA THOMAS Primary [...] Gastroeso phageal reflux disease without esophagit is 970589084 Active 2014 Gastro-eso phageal reflux disease without esophagiti s; Note: Date Diagnosed: 01/16/2015 10:07 AM (K21.9) Not Available [facility] 4 02:31:43 Sensorine ural hearing loss of bilateral ears 137321564 Active 2013 SNHL Bilaterall y; CMS Risk: low risk Note: Date Diagnosed: 12/10/2013 9:18 AM (389.18) Not Available [facility] 4 02:31:47 Deviated nasal septum 852431966 Active 2014 Septal Deviation; Note: Date Diagnosed: 08/05/2014 11:13 AM (470) ; Start Date : 08/05/2014 Deviated nasal septum; Note: Date Diagnosed: 01/16/2015 9:52 AM (J34.2) Not Available [facility] 4 02:31:48 Bilateral sensory hearing loss 399522921 Active 2013 Hearing loss: Sensory hearing loss, bilateral; Location: left Note: Date Diagnosed: 12/16/2013 11:26 AM (389.11) Not Available [facility] 4 02:31:45 Simple obesity 838677996 Active 2016 Other obesity due to excess calories; Note: Date Diagnosed: 10/09/2016 1:21 PM (E66.09) Not Available [facility] 4 02:31:33 Postopera tive follow-up visit Active 2013 Post op; Note: Date Diagnosed: 12/16/2013 11:26 AM (V67.00) Not Available [facility] 4 02:31:42 Hypertrop hy of nasal turbinate s 81606655 Active 2014 Nasal turbinate hypertroph y; Note: Date Diagnosed: 02/16/2014 12:31 PM (478.0) ; Start Date : 02/16/2014 Hypertrop hy of nasal turbinates ; Note: Date Diagnosed: 01/16/2015 9:52 AM (J34.3) Not Available [facility] 4 02:31:37 Obstructi ve sleep apnea syndrome 92514749 Active 2015 Obstructiv e sleep apnea (adult) (pediatric ); Note: Date Diagnosed: 05/04/2015 4:55 PM (G47.33) Not Available [facility] 4 02:31:48 Allergic rhinitis caused by pollen 29059590 Active 2013 Vasomotor rhinitis; Note: Date Diagnosed: 01/10/2014 2:23 PM (477.0) Not Available [facility] 4 02:31:46 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 Procedures Surgical History None recorded. Imaging Results Imaging Date Name Status LastModified by Organiz [facility] Details LastModified Time 04/27/2021 imaging/diag nostic result completed Information not available 10/28/2023 21:36:47 06/01/2021 imaging/diag nostic result completed Information not available 10/28/2023 21:37:06 Procedure Notes None recorded. Medical Equipment None Reported. Allergies Allergen ID Allergen Name Allergen Category Reaction Reaction Severity Criticality Documentation Date Start Date Code Code System Note Provider Name and Address Organization Details Recorded Time 29910 Product containin g penicilli n (product) medicatio n other Not available Not available 07/22/2023 75605 8005 SNOMED React ion: Unkno wn; Not Available [facility] 4 00:23:22 Medications Name Sig Start Date Stop Date Status Note LastModified by Organization Details LastModified Time furosemid e 40 mg tablet active Medicati on ID: 672393 B rand Name: furosemi de Send Method: E-Prescr ibed Sub s Allowed: subs OK Medic ationGen ericName : furosemi de Not Available Not Available Not Available metolazon e 2.5 mg tablet active Not Available Not Available Not Available metformin 500 mg tablet 05/11 completed Medicati on ID: 70162 Br and Name: metformi n Send Method: [...] ous solution 05/11 completed Medicati on ID: 267878 D uration Value: 28 Brand Name: Lantus U-100 Insulin Send Method: E-Prescr ibed Sub s Allowed: subs OK Speci al Instruct ion: INJECT 10 UNITS SUBCUTAN EOUSLY AT BEDTIME DISCAR D VIAL AFTER 28 DAYS Medic ationGen ericName : Lantus U-100 Insulin Not Available Not Available Not Available digoxin 250 mcg (0.25 mg) tablet 05/11 completed Medicati on ID: 04298 Br and Name: digoxin Send Method: E-Prescr ibed Sub s Allowed: subs OK Medic ationGen ericName : digoxin Not Available Not Available Not Available omeprazol e 40 mg capsule,d elayed release active Medicati on ID: 017934 B rand Name: omeprazo le Send Method: E-Prescr ibed Sub s Allowed: subs OK Medic ationGen ericName : omeprazo le Not Available Not Available Not Available tramadol 50 mg tablet 05/11 [place] Medicati on ID: 27361 Br and Name: tramadol Send Method: E-Prescr ibed Sub s Allowed: subs OK Medic ationGen ericName : tramadol Not Available Not Available Not Available warfarin 4 mg tablet active Not Available Not Available Not Available Nexium 20 mg capsule,d elayed release 1 capsule by mouth once a day 05/11 completed Medicati on ID: 89542 Br and Name: Nexium S end Method: [...] 0.4 mg capsule active Medicati on ID: 044267 B rand Name: tamsulos in Send Method: E-Prescr ibed Sub s Allowed: subs OK Medic ationGen ericName : tamsulos in Not Available Not Available Not Available glipizide ER 2.5 mg tablet, extended release 24 hr 05/11 completed Medicati on ID: 99099 Br and Name: glipizid e Send Method: E-Prescr ibed Sub s Allowed: subs OK Medic ationGen ericName : glipizid e Not Available Not Available Not Available warfarin 2 mg tablet active Medicati on ID: 429326 B rand Name: warfarin Send Method: E-Prescr ibed Sub s Allowed: subs OK Medic ationGen ericName : warfarin Not Available Not Available Not Available fluticaso ne propionat e 50 mcg/actua tion nasal spray,andres pension 05/11 completed Medicati on ID: 222878 D uration Value: 30 Brand Name: fluticas one propiona te Send Method: E-Prescr ibed Sub s Allowed: subs OK Speci al Instruct ion: USE 1 SPRAY IN EACH NOSTRIL TWICE A DAY Medi cationGe nericNam e: fluticas one propiona te Not Available Not Available Not Available metformin ER 500 mg tablet,ex tended release 24 hr active Medicati on ID: 712573 B rand Name: metformi n Send Method: E-Prescr ibed Sub s Allowed: subs OK Medic ationGen ericName : metformi n Not Available Not Available Not Available ipratropi um bromide 21 mcg (0.03 %) nasal spray Inhale 2 spray into both nostrils three times a day as directed 05/11 completed Medicati on ID: 09761 Br and Name: Jessica Send Method: E-Prescr [...] mcg tablet 05/11 completed Medicati on ID: 23100 Br and Name: Centrum Silver Ultra Men's Se nd Method: E-Prescr ibed Sub s Allowed: subs OK Medic ationGen ericName : Centrum Silver Ultra Men's Not Available Not Available Not Available Vitals Date Recorded Body height Body mass index (BMI) Body weight Provider Name and Address Organization Details Last Updated DateTime 08/14/2023 172.72 cm 38 kg/m2 368953.09 g Tevin Koch [place] - [facility] 08/14/2023 10:01:01 Social History None recorded. Functional Status None recorded. Mental Status None recorded. Family History Nothing Reported. Medical History No medical history recorded. Past Encounters Encounter ID Performer Location Encounter Start Date Encounter Closed Date Diagnosis/Indication Diagnosis SNOMED-CT Code Diagnosis ICD10 Code Diagnosis Note [id number] RAMYA ARNDT MD [facility] [address] 08/14/2023 09:50:50 08/14/2023 10:16:30 Benign neoplasm of parotid gland 01308042 D11.0 Health Concerns Section Related Observation LastModified by Organization Detai ls LastModified Time None Recorded Concern Status LastModified by Organization Details LastModified Time None Recorded Advance Directives Directive None Recorded Payers Encounter Date Sequence Insurance Name Policy Number Policy Casarez Covered Member ID Casarez Member ID Guarantor Name 08/14/2023 2 [place] Leonardo Pang [id number] Leonardo Pang 08/14/2023 1 [place] [employer] Leonardo Pang [id number] Leonardo Pang Notes Date Note Type Note Provider Name and Address Organization Details Recorded Time 08/14/2023 text/html left parotid FNA 05/17/21 - warthin tumorct neck w contrast at [place] 04/27/21left parotid 2.8cm mass. compare with prior [...] cochlear implant with Dr Demetrio ARNDT MD [address] [place] [address], [phone], [facility] - [facility] 08/14/2023 10:15:11
--- OUTSIDE RECORDS SUMMARY | 2024-06-18 08:03 | XMS_ITS | Clinical Summary ---
Author Organization [facility] Address [address] [place] [address] Care Team Providers Care Retail Leader Name Role Phone Darien Bruner MD Primary Care Provider [phone] Allergies Active Allergy Reactions Criticality Noted Date Comments Penicillins Unknown/Patient and Family Unable to Define Medium 02/10/2024 Medications Medication Sig Dispensed Refills Start Date End Date Status SUPPLY DME MISCIndications:Pain in right ankle and joints of right foot RT ANKLE / Foot [place] Boot Dx: Diabetic Neuropathy, RT Plantar foot [...] age to complete this topic Care Teams Retail Leader Relationship Specialty Start Date End Date Darien Bruner MD [address] [place] [address] Dr [address] [place], [place] [phone] PCP - General 01/19/24
--- OUTSIDE RECORDS SUMMARY | 2024-06-18 08:03 | XMS_ITS ---
Author Organization [facility] Address [address] [place] [address] Care Team Providers Care Games Manager Name Role Phone Darien Bruner MD Primary Care Provider UnavailRonel Jimenez Unavailable [phone] Encounters Encounter Location Date Provider Diagnosis [address] [address] 02/23/2024 Ronel Leon Plan Of Treatment Next Appt Details Provider Name:Ronel Leon , 07/29/2024 09:00:00 AM, [address] [place], [address], Progress Notes * Leonardo GRIFFINDOB:1950 (74 yo M)Acc No.[id number]:02/23/2024 Progress Note Patient:?Leonardo GRIFFIN Provider:?Ronel Leon DPM :1950???Age:73 Y???Sex:Male En e:02/23/2024 Address:[address] [place] [address] [place], [phone] Pcp:Darien Bruner MD Subjective: * Chief Complaints: [...] Leon DPM Date:?2023 Generated for René temple/Melissa/Patel on:?06/18/2024 08:03 AM EDT
[2024-06-18 08:11] LABS: Prothrombin Time Whole Bld POC 25.6 sec (11.1-13.5); ~PT, ~INR - Anti Coag Clinic 2.1 (0.9-1.1)
--- NOTE | 2024-06-18 08:17 | MHC.OFFVISCO ---
Intake Intake Visit Reasons: Anticoagulation Allergies Penicillins [PENICILLINS] Allergy (Intermediate, Verified 06/18/24 08:03) rash- STATES BAD RXN CHILD Medication List - Last Reconciled 06/18/24 by Sayra Adorno RN blood sugar diagnostic As directed carvedilol 12.5 mg PO DAILY cholecalciferol (vitamin D3) 50 mcg PO DAILY@1600 clotrimazole 1% 1 appl topical TID 4 weeks ferrous sulfate (iron) 325 mg PO DAILY furosemide 40 mg PO SUTUTHSA@0900 furosemide 80 mg PO MOWEFR@0900 glipizide ER 10 mg PO BID metformin ER 1,000 mg PO DAILY metformin ER 500 mg PO DAILY@1400 metolazone 2.5 mg PO SA@0900 olyjizheeirr-ojndqnaa-ikhgov 1 tab PO DAILY oxycodone-acetaminophen 5-325 mg 1 tab PO 5XD PRN pravastatin 80 mg PO BEDTIME tamsulosin 0.4 mg PO DAILY@1700 tizanidine 2 mg PO BEDTIME warfarin 6 mg See Protocol PO DAILY@1800 Nursing Note INR: 2.1 in therapeutic range Medications and supplements reviewed No changes in health, diet, medications, or supplements, Denies any signs and symptoms of bleeding or bruising or clotting. Bleeding, bruising, clotting discussed Nutritional guidance given Dose: RESUME PREVIOUS DOSE 6MG DAILY F/U INR: 3 WEEKS Patient verbalizes understanding of instructions given Anti-Coag Initial Assessment Social Hx Patient Tobacco Use Status: Former Tobacco user Tobacco use type: Cigarette alcohol intake: former Alcohol intake frequency: does not drink Coding Level of Care Code Est Patient Level 1 Diagnoses Current use of anticoagulant therapy Z79.01 Results AMB INR Fingerstick AMB INR Fingerstick 2.1 Last Edit by Sayra Adorno RN on 06/18/24 08:14 MANUAL ENTRY Assessment & Plan Assessment & Plan (1) Current use of anticoagulant therapy: Code(s): 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
== END 2024-06-18 08:19 | disposition home or self-care (01) ==
LOC: HO.ACS 08:00
PROVIDERS: PCP Internal Medicine; Visit Provider Internal Medicine Medical Oncology
DX: Z79.01 Long term (current) use of anticoagulants (principal)

== ENCOUNTER → 2024-06-18 08:00 | Outpatient (BNVA) | payer MEDICARE, SELFPAY | PROVIDERS: PCP Internal Medicine; Visit Provider Internal Medicine Medical Oncology | DX: I48.20 Chronic atrial fibrillation, unspecified (principal); Z79.01 Long term (current) use of anticoagulants; Z51.81 Encounter for therapeutic drug level monitoring | CPT/HCPCS: 85610; 99211 ==

== ENCOUNTER 2024-06-30 09:40 | Outpatient (AMB) | payer MEDICARE, SELFPAY ==
--- NOTE | 2024-06-30 09:48 | A.OFFPC_ITS ---
Vital Signs 06/30/24 10:08 Height 5 ft 8 in Weight 246 lb BMI 37.4 BP 126/74 Blood Pressure Location Lt brachial Position Sitting Pulse 84 Pulse Source Pulse Oximeter Temp 97.6 F Temp Source Axillary Pulse Oximetry (%) 98 Oxygen Delivery Method Room Air Intake Visit Reasons: ROUTINE Heart Specialist Required: No Accompanied by: Self / Same As Patient Allergies Penicillins [PENICILLINS] Allergy (Intermediate, Verified 06/30/24 09:48) rash- STATES BAD RXN CHILD Tobacco use date assessed: 06/30/24 Fall risk assessment: No Falls in past year Last assessed Fall Risk: 06/30/24 Dental Screening Dental Screen Date: 06/30/24 Did you have a dental visit in the last 12 months?: Yes Did you have a dental problem in the last 6 months where you did not have access to dental care?: No [facility] Medical History (Updated 06/30/24 @ 10:50 by Young Bunn MD) Chronic pain syndrome Diabetic foot ulcer MSSA bacteremia Foot ulcer, right Ambulates with cane Cochlear implant in place Type 2 diabetes mellitus with unspecified complications Essential hypertension Persistent atrial fibrillation Osteoarthritis of left knee Deafness in left ear JUDIE (obstructive sleep apnea) Osteoarthritis Anemia Venous stasis Hard of hearing Obesity GERD (gastroesophageal reflux disease) BPH (benign prostatic hyperplasia) Diabetes Peripheral edema Atrial fibrillation COPD (chronic obstructive pulmonary disease) Chronic a-fib Surgical History History of umbilical hernia repair (02/18/24) Hx of total knee arthroplasty History of amputation of toe Hx of total shoulder replacement Hx of colonoscopy (~11/01/22) History of bilateral hip replacements Uses cochlear implant Family History Father No problems noted. Mother Stroke Social History Household Members: Spouse Housing: House Are you a primary childbirth and infant care teacher to a significant other at home: No Do you presently have visiting nurse or other home services: No Alcohol intake: former Patient Tobacco Use Status: Former Tobacco user Tobacco use type: Cigarette e-Cigarette/Vaping Use: Never Used Second Hand Smoke Exposure: No Advance Directives Date on File: 12/31/19 service: No 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al status: retired 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 Cognitive needs: No Hearing needs: Yes (left ear) Vision needs: Yes (reading glasses) Questionnaire PHQ-9 Over the last 2 weeks, how often have you been bothered by any of the following problems? 1. Little interest or pleasure in doing things: not at all 2. Feeling down, depressed, or hopeless: not at all 3. Trouble falling or staying asleep, or sleeping too much: not at all 4. Feeling tired or having little energy: not at all 5. Poor appetite or overeating: not at all 6. Feeling bad about yourself - or that you are a failure or have let yourself or your family down: not at all 7. Trouble concentrating on things, such as reading the newspaper or watching television: not at all 8. Moving or speaking so slowly that other people could have noticed. Or the opposite - being so fidgety or restless that you have been moving around a lot more than usual: not at all 9. Thoughts that you would be better off or of hurting yourself in some way: not at all Total score: 0 Source: Developed by Drs. Jose Antonio Ferris, Quita Ceballos, Thierry Beckham and colleagues, with an educational nela from [employer]. Thrive Questionnaire Date Thrive assessed: 06/30/24 I am a: Patient Within the past 12 months, did the food you bought not last and you didn't have the money to get more?: Never true Within the past 12 months, did you worry whether your food would run out before you got money to buy more?: Never true Do you have trouble paying for medicines?: No Do you have trouble getting transportation to medical appointments?: No Do you have trouble paying your heating and electricity bill?: No Do you have trouble taking care of your child, family member or friend?: No Do you have trouble with day-to-day activities such as bathing, preparing meals, shopping, managing finances, etc.?: No Are you currently unemployed and looking for a job?: No Are you interested in more education?: No THRIVE Score: 0 AUDIT C Alcohol Use Questionnaire (AUDIT-C) 1. How often do you have a drink containing alcohol?: Never 3. How often do you have six or more drinks on one occasion?: Never Total Score: 0 Physical exam (Primary Care) Vital Signs: Last Vital Signs Temp 97.6 F 06/30/24 10:08 Pulse 84 06/30/24 10:08 BP 126/74 06/30/24 10:08 Pulse Ox 98 06/30/24 10:08 Oxygen Delivery Method Room Air 06/30/24 10:08 BMI result Body Mass Index 37.4 Tobacco/Smoking Status: Tobacco use Status Tobacco use date assessed 06/30/24 06/30/24 09:50 Patient Tobacco Use Status Former Tobacco user 06/30/24 09:50 Tobacco use type Cigarette 06/30/24 09:50 e-Cigarette/Vaping Use Never Used 06/30/24 10:22 PHQ-9: PHQ-9 Score PHQ-9: Total score 0 06/30/24 10:22 Thrive Assessment: Date of Thrive Assessment Date Thrive assessed 06/30/24 06/30/24 09:50 Coding Level of Care Code New Pt Level 4 (51851) Complex EM visit Add On G2211 Diagnoses Chronic pain syndrome G89.4 Assessment & Plan Assessment & Plan (1) Chronic pain syndrome: Code(s): G89.4 - Chronic pain syndrome Category: Medical Plan: I reviewed patient's records. He is taking oxycodone 5 mg 5 times a day. Taking the medication at this frequency and dosage helps him to do all his activities of daily living. Patient has extensive crippling arthritis in his hands, failed knee replacements, limb shortening . I will continue at this prescription dosage. Patient is reluctant to reduce the dosage to 4 pills a day. It will affect his quality of life, he believes. Narcan prescription provided. Plan History of Present Illness The patient is a 74-year-old male presenting for management of his opioid medication usage. He reports taking oxycodone 5 times daily for over 20 years due to severe bilateral hand pain. The pain disrupts his sleep and has progressed, causing significant functional limitations in hand usage. The dependence on medications began after multiple joint replacements including both knees and hips. Previously reducing dosage from 6 to 5 daily doses proved uncomfortable, discouraging further reductions. The patient also has histories of joint replacements and diabetic foot complications, using a supportive boot for balance. 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 Social History - Retired, formerly worked in [employer] - Manages household finances - Lives with spouse - Previously smoked; quit over 20 years ago - Utilizes a supportive boot for diabetic foot complications Review of Systems - Musculoskeletal: Reports bilateral hand pain with functional limitations. - Neurological: Denies any significant cognitive disabilities. - Cardiovascular: Denies current discomforts; reports stable management with warfarin. - Respiratory: Denies respiratory issues. - Gastrointestinal: Denies gastrointestinal complaints. - Dermatological: Denies skin issues. - Endocrine: Denies current issues; has historical diabetes management. Physical Exam General: Cooperative and healthy appearing Nutritional Appearance: Well nourished Orientation/consciousness: Patient oriented x3 Limitations: No limitations Head: Normal to inspection General: Appearance normal, both eyes and all related structures Neck: Normal visual inspection Chest: Normal palpation of entire chest wall Respiratory: N ormal respiratory effort Neurology: Patient oriented x3, but reports issues with hands being bothersome at night and affecting sleep. Results - Labs: Hemoglobin A1c checked in April reported as stable. - Tests and Diagnostics: Regular INR checks with monthly adjustments made for the warfarin dosage. Plan The management plan will maintain the patient's opioid prescription at continued dosage to manage hand pain effectively. Instructions were provided regarding the use of naloxone Narcan) for overdose precaution. Regular three-month follow- ups with blood work assessments are planned to monitor diabetic control and ant icoagulation therapy. The patient confirmed understanding of the non-necessity of antibiotics before dental procedures. Anticoagulation management risks were outlined, ensuring patient education about his medications including awareness of potential complications and safety measures. Health indicators will be monitored closely to address ongoing concerns like former smoking cessation success, diabetes, and dyslipidemia control measures. Patient was informed and verbally consented to the use of an ambient scribe for clinic note documentation during this visit. Discussion Notes During this visit, I emphasized discussions about opioid use and management, ensuring the patient understands the risks and precautionary measures, such as keeping naloxone at home. I reiterated the non-necessity for antibiotic prophylaxis before dental procedures. The patient has opted to continue his current opioid regimen, understanding its implications on dependency and potential overdose risks. I instructed on naloxone use similar to a safety measure like a fire extinguisher. Additionally, ongoing monitoring adherence was agreed upon every three months, including blood sugar and INR monitoring with relevant discussions about anticoagulation management. We ensured the patient's ongoing comfort with his medical regimen, considering past treatments without pushing for immediate reductions. Patient Instructions - Continue taking oxycodone as currently prescribed. - Obtain nasal naloxone for potential overdose protection at home. - No need for antibiotics before dental procedures as previously advised by dentist. - Maintain regular check-ups every three months with scheduled blood work. - Continue using the supportive boot as necessary for diabetic foot management. - Monitor for any signs of distress when managing medications and aware of their risks.
[2024-06-30 10:08] VITALS: BP 126/74; PULSE 84; TEMP 36.4; O2SAT 98; BMI 37.4
--- OUTSIDE RECORDS SUMMARY | 2024-06-30 10:52 | XMS_ITS ---
[facility] Address [address] [facility] [place] [address] Care Team Providers Care Hand Button Splitter Name Role Phone Darien Bruner MD Primary Care Provider Unavaila ble Black, Ronel Unavailable [phone] Allergies Allergen (clinical drug ingredient) Drug/Non Drug [...] Ordered Date Performed Result Body Sit e 01090-BTTYPYW NAIL, 6 OR MORE 04/19/2024 N/A 14100-BMVI SKIN LESIONS, OVER 4 04/19/2024 N/A Encounters Encounter Location Date Provider Diagnosis [facility] [address] [place] [address] 04/19/2024 Ronel Black Type 2 diabetes mellitus [...] Treatment Pending Test Test Name Order Date 52078-HYORLGK NAIL, 6 OR MORE 04/19/2024 11663-OPFQ SKIN LESIONS, OVER 4 04/19/19 25 Next Appt Details Follow Up: 4 Months, Reason: Provider Name:Ronel Leon , 07/29/2024 09:00:00 AM, [address] [place] [address], [id number], Procedure Notes * Category Sub-Category Detail Notes [...] use of a nail nipper and/or dremel-type jewel bearing grinder, to a more viable healthy nail [...] to maintain effectiveness in symptomatic relief - 70836 Keratoma Treatment Parring or Cutting o f [...] instrumentation by the physician of record - 85952 Progress Notes * Leonardo GRIFFINDOB:1950 (74 yo M)Acc No.[id number]:04/19/2024 Progress Note Patient:?Leonardo GRIFFIN Provider:?Ronel Leon DPM :1950???Age:74 Y???Sex:Male En e:04/19/2024 Address:[address] [place], [place] [id number] Pcp:Darien Bruner MD Subjective: * Chief Complaints: * ???At Risk FootcareOpen sore * HPI: ???At Risk footcare:?Pt States Last PCP Visit:?Date?03/30/2024 ???Skin problems:?Pt States PCP Visit: ?DATE?03/30/2024 ?Location:?Midfoot , Bottom , Right, top 2,3 digit right.?Treatments:?Pt relates hospitalization end of September for open wound with infection. [facility] [...] knee replacement 12/27 * Hospitalization/Major Diagno stic Procedure:?[facility] for [facility] 10[facility]23/2011[facility]- Lesion on foot [...] ?Marital status: . 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 * Medications:?TakingmetOLazon e Vitamin D Furosemide [...] - S90.222A??? Plan: * Treatment: 2.?Tinea unguium?Procedure: 17427-YNMUQBU NAIL, 6 OR MORE * Procedures:?Debride Nail [...] use of a nail nipper and/or dremel-type jewel bearing grinder, to a more viable healthy nail [...] to maintain effectiveness in symptomatic relief - 85176.?Keratoma Treatment:?Parring or Cutting of Benign Hyperkeratotic Lesion(s)?(-57) [...] instrumentation by the physician of record - 73985.? * Procedure Codes:?00058 DEBRI DE NAIL, 6 OR MORE, Modifiers: XS 28403 TRIM SKIN LESIONS, OVER 4, Modifiers: XS [...] Leon DPM Date:?2024 Generated for René temple/Melissa/Audreyitting on:?06/30/2024 10:52 AM EDT History and Physical Notes * HPI (History of Present Illness) Category Sub-Category Detail Notes Category Not es Skin problems Location: Midfoot , Bottom , Right, top 2,3 digit right Treatments: [facility] end of [facility] for open wound with infection. pt is presently being treated at [facility] [place] and [facility] is coming to the house [...]
--- OUTSIDE RECORDS SUMMARY | 2024-06-30 10:52 | XMS_ITS ---
Author Organization [facility] Address [address] [place] [address] Care Team Providers Care Tour Leader Name Role Phone Darien Bruner MD Primary Care Provider Unavaila Ronel Reaves Unavailable [phone] REASON FOR VISIT r/s 02/22 Encounters Encounter Location Date Provider Diagnosis [address] [address] 02/12/2024 Ronel Leon Plan Of Treatment Next Appt Details Provider Name:Ronel A Edward , 07/29/2024 09:00:00 AM, [address] [place], [address], Progress Notes * Leonardo GRIFFINDOB:1950 (73 yo M)Acc No.[id number]:02/12/2024 Patient:?Leonardo GRIFFIN :1950???Age:73 Y???Sex:Male Address:[address] [place] [address], [phone] * true * Date:? Generated for Printi ng/Famargog/eTransmitting on:?06/30/2024 10:52 AM EDT
--- OUTSIDE RECORDS SUMMARY | 2024-06-30 10:53 | XMS_ITS | Clinical Summary ---
Author Organization [facility] Address [address] [place] [address] Care Team Providers Care Hollow Ware Maker Name Role Phone Darien Bruner MD Primary Care Provider [phone] Allergies Active Allergy Reactions Criticality Noted Date Comments Penicillins Unknown/Patient and Family Unable to Define Medium 02/10/2024 Medications SUPPLY DME MISCIndications :Pain in right ankle and joints of right foot RT ANKLE / Foot WASHOE Boot Dx: Diabetic Neuropathy, RT Plantar foot Ulcer 1 each 02/10/2024 Active Social History Tobacco Use Types Packs/Day Years Used Date Smoking Tobacco: Never Assessed Sex and Gender Information Value Date Recorded Sex Assigned at Not on file Legal Sex Male 2:17 PM EST Gender Identity Not on file Sexual Orientation [...] on patient's age to complete this topic Insurance MEDICARE PART A & [place] [id number] Care Teams Hollow Ware Maker Relationship Specialty Start Date End Date Darien Bruner MD [address] [place] [address] [place] [address] PCP - General 01/19/24
--- OUTSIDE RECORDS SUMMARY | 2024-06-30 10:53 | XMS_ITS ---
Author Organization [facility] Address [address] [place] [address] Care Team Providers Care Audit Spec Name Role Phone Darien Bruner MD Primary Care Provider UnavailRonel Jimenez Unavailable [phone] Encounters Encounter Location Date Provider Diagnosis [address] [address] 02/23/2024 Ronel Leon Plan Of Treatment Next Appt Details Provider Name:Ronel Leon , 07/29/2024 09:00:00 AM, [address] [place], [address], Progress Notes * Leonardo GRIFFINDOB:1950 (74 yo M)Acc No.[id number]:02/23/2024 Progress Note Patient:?Leonardo GRIFFIN Provider:?Ronel Leon DPM :1950???Age:73 Y???Sex:Male En e:02/23/2024 Address:[address] [place] [address] [place], [id number] Pcp:Darien Bruner MD Subjective: * Chief Complaints: [...] Leon DPM Date:?2023 Generated for René temple/Melissa/Patel on:?06/30/2024 10:53 AM EDT
--- OUTSIDE RECORDS SUMMARY | 2024-06-30 10:53 | XMS_ITS | Patient Health Record ---
[facility] Organization [facility] Address [address] [facility] [place] [address] Care Team Providers Care Cinder Snapper Name Role Phone Darien Bruner MD Primary Care Provider Unavaila Ronel Reaves Unavailable [phone] Allergies Allergen (clinical drug ingredient) Drug/Non Drug Allergy documented on EMR Reaction Allergy Type Onset Date Status amoxicillin Amoxicillin Unknown Drug Allergy Act anneliese Penicillin Unknown Drug Allergy Active Results Component Value Reference Range Notes HEMOGLOBIN A1C (GLYCOHEMOGLO BIN) Reviewed date:04/19/2024 10:17:18 AM Interpretation: Performing Lab: Notes/Report: HEMOGLOBIN A1C % (HH) 6.7 Reason For Referral No Information Medications Medication [...] Problem Acquired hammer toe of right foot (4667186563723834 ) Other hammer toe(s) (acquired), right foot (M20.41) Active confirmed Problem Acquired hammer toe of left foot (0581574350672944 ) Other hammer toe(s) (acquired), left foot (M20.42) Active confirmed Problem Plantar wart (46704709) Plantar wart (B07.0) Active confirmed Problem Ulcer of toe (950863880) Non-pressure chronic ulcer of other part of left foot limited to breakdown of skin (L97.521) Active confirmed Problem Ulcer of toe (102795581) Non-pressure chronic ulcer of other part of right foot limited to breakdown of skin (L97.511) Active confirmed Problem Acquired left hallux valgus (661787172096045) Hallux valgus (acquired), left foot (M20.12) Active confirmed Problem Acquired right hallux valgus (082962674694792) Hallux valgus (acquired), right foot (M20.11) Active confirmed Problem Polyneuropathy due to type 2 diabetes mellitus (803633298) Type 2 diabetes mellitus with diabetic polyneuropathy (E11.42) Active confirmed Problem Neuropathic arthropathy due to diabetes mellitus (680675303) Charcot foot due to diabetes mellitus (E11.610) Active confirmed Problem Difficulty balancing (853787311) Unsteady gait (R26.81) Active confirmed Problem Charcot's gait (07895826) Charcot gait (R26.0) Active confirmed Problem Ulcer of toe of right foot (disorder) (6040741007853837 1) Skin ulcer of toe of right foot, limited to breakdown of skin (L97.511) Active confirmed Problem Unstageable pressure injury of right foot (211889232603464) Pressure injury of right foot, unstageable (L89.890) Active confirmed Problem Ulcer of toe of left foot (disorder) (5695990465525886 2) Skin ulcer of toe of left foot, limited to breakdown of skin (L97.521) Active confirmed Problem Stasis dermatitis (82759521) Stasis dermatitis (I87.2) Active confirmed Vital Signs Blood pressure diastolic 60 mm Hg 04/19/2024 Height 5ft8in in 04/19/2024 Blood pressure systolic 120 mm Hg 04/19/2024 Weight 244 lbs 04/19/2024 BMI 37.1 kg/m2 04/19/2024 Procedures Procedure Date Ordered Date Performed Result Body Sit e 01829-CVSJVUE NAIL, 6 OR MORE 10/23/2023 N/A 08799-PJOQ SKIN LESIONS, OVER 4 10/23/2023 N/A 69667-GXJMQSH NAIL, 6 OR MORE 04/19/2024 N/A 44475-ZPCJ SKIN LESIONS, OVER 4 04/19/2024 N/A Encounters Encounter Location Date Provider Diagnosis [address] [address] 10/23/2023 Ronel Leon Type 2 diabetes mellitus with diabetic polyneuropathy E11.42 ; Tinea unguium B35.1 ; Charcot gait R26.0 and Pressure injury of right foot, unstageable L89.[address] [address] 04/19/2024 Ronel Leon Type 2 diabetes mellitus with diabetic polyneuropathy E11.42 ; Charcot foot due to diabetes mellitus E11.610 ; Tinea unguium B35.1 ; Charcot gait R26.0 ; Skin ulcer of toe of right foot, limited to breakdown of skin L97.511 and Subungual contusion of toe of left foot, initial encounter S90.222A [address] [address] 02/12/2024 Ronel Leon Assessments Encounter Date Diagnosis (ICD Code) Assessment Notes Treatment Notes Treatment Clinical Notes Section Notes 10/23/2023 Tinea unguium (ICD-10 - B35.1) 10/23/2023 Type 2 diabetes mellitus with diabetic polyneuropathy (ICD-10 - E11.42) 04/19/2024 Type 2 diabetes mellitus with diabetic polyneuropathy (ICD-10 - E11.42) 04/19/2024 Charcot foot due to diabetes mellitus (ICD-10 - E11.610) 04/19/2024 Tinea unguium (ICD-10 - B35.1) 10/23/2023 Charcot gait (ICD-10 - R26.0) 10/23/2023 Pressure injury of right foot, unstageable (ICD-10 - L89.890) 04/19/2024 Charcot gait (ICD-10 - R26.0) 04/19/2024 Skin ulcer of toe of right foot, limited to breakdown of skin (ICD-10 - L97.511) 04/19/2024 Subungual contusion of toe of left foot, initial encounter (ICD-10 - S90.222A) Plan Of Treatment Pending Test Test Name Order Date Hemoglobin A1c 06/04/2018 54760-CFLHLDE NAIL, 6 OR MORE 04/19/2024 12150-HWTAIZH NAIL, 6 OR MORE 12/05/2010 15546-CMYIUFZ NAIL, 6 OR MORE 02/06/2011 74179-ANVSIHF NAIL, 6 OR MORE 04/22/2011 63732-EUOWTKZ NAIL, 6 OR MORE 07/15/2011 50419-SFCUFFN NAIL, 6 OR MORE 09/25/2011 03773-UFXEBIS NAIL, 6 OR MORE 10/28/2011 52600-USHGHDA NAIL, 6 OR MORE 01/16/2012 76021-KRMFHLY NAIL, 6 OR MORE 04/08/2012 49791-KTJTXAX NAIL, 6 OR MORE 06/24/2012 75771-NQWDNZB NAIL, 6 OR MORE 09/23/2012 63957-DODRHUG NAIL, 6 OR MORE 12/28/2012 26591-INELHOC NAIL, 6 OR MORE 03/31/2013 94143-IVVYTNJ NAIL, 6 OR MORE 06/14/2013 62654-MCJLOUM NAIL, 6 OR MORE 09/20/2013 38755-ZZMXMLI NAIL, 6 OR MORE 12/22/2013 13122-AVHTGJF NAIL, 6 OR MORE 03/21/2014 97800-PKIJUMC NAIL, 6 OR MORE 06/20/2014 33887-FEWWMQL NAIL, 6 OR MORE 09/21/2014 57954-MOPQQGM NAIL, 6 OR MORE 11/30/2014 32157-XFLKPMH NAIL, 6 OR MORE 02/06/2015 87761-MXKUVXK NAIL, 6 OR MORE 05/01/2015 51785-REMEHAJ NAIL, 6 OR MORE 07/10/2015 31659-BZTQYHM NAIL, 6 OR MORE 10/02/2015 32890-ILPCWKP NAIL, 6 OR MORE 12/14/2015 78960-TQFWKKZ NAIL, 6 OR MORE 02/22/2016 05098-QAHIBWD NAIL, 6 OR MORE 05/30/2016 78550-BJBITAP NAIL, 6 OR MORE 08/29/2016 91557-EVIUZQF NAIL, 6 OR MORE 11/28/2016 46944-VKXRXCC NAIL, 6 OR MORE 02/27/2017 71004-EZJKFRV NAIL, 6 OR MORE 05/29/2017 74809-NGXODDS NAIL, 6 OR MORE 08/28/2017 14087-GVTFRGS NAIL, 6 OR MORE 03/12/2018 40415-PUVSMYL NAIL, 6 OR MORE 11/27/2017 06228-DVXZELP NAIL, 6 OR MORE 06/04/2018 99614-LWKAGEJ NAIL, 6 OR MORE 07/12/2021 06126-BHEDOFN NAIL, 6 OR MORE 10/25/2021 11995-QJMLSBU NAIL, 6 OR MORE 02/07/2022 70960-QYTTMQV NAIL, 6 OR MORE 06/13/2022 23547-JUWYILX NAIL, 6 OR MORE 10/17/2022 61942-SBSXHDR NAIL, 6 OR MORE 02/17/2023 72621-RAXXIDU NAIL, 6 OR MORE 06/19/2023 34375-HCROCDJ NAIL, 6 OR MORE 10/23/2023 56656-Njio Destruction, 1-14 02/17/2023 97971-Fjuj Destruction, 1-06/19/2023 76788-Zzob Destruction, 1-14 06/13/2022 17593-Lxxu Destruction, 1-14 10/17/2022 10734-Rucxxrcy Plate 07/12/2021 95947-Tvelmtyk Plate 10/25/2021 89580-Flcbtbma Plate 05/29/2017 98584-Sayoksuy Plate 08/29/2016 22810-Jtgvhhnl Plate 11/30/2014 90458-Shuyxlli Plate 09/21/2014 74880-Jwhrgexh Plate 06/14/2013 70893-Bvksxruf Plate 06/20/2014 27697-Wvorapfy Plate 03/21/2014 23397-Cydsfdmj Plate 12/22/2013 91691-Zblanjhk Plate 09/20/2013 34559- Debride <25 sq cm 09/20/2013 20007- Debride <25 sq cm 12/22/2013 38619- Debride <25 sq cm 06/14/2013 08877- Debride <25 sq cm 03/31/2013 02761- Debride <25 sq cm 03/21/2014 27213- Debride <25 sq cm 06/20/2014 83844- Debride <25 sq cm 09/21/2014 96595- Debride <25 sq cm 12/28/2012 30610- Debride <25 sq cm 09/23/2012 65480- Debride <25 sq cm 06/24/2012 32993- Debride <25 sq cm 04/08/2012 03322- Debride <25 sq cm 01/16/2012 31124- Debride <25 sq cm 10/28/2011 66754- Debride <25 sq cm 09/02/2011 08946- Debride <25 sq cm 09/25/2011 38689- Debride <25 sq cm 12/26/2010 37872- Debride <25 sq cm 02/22/2016 46901- Debride <25 sq cm 12/14/2015 77784- Debride <25 sq cm 10/02/2015 44543- Debride <25 sq cm 10/12/2015 14880- Debride <25 sq cm 10/06/2014 35656- Debride <25 sq cm 05/30/2016 13694- Debride <25 sq cm 02/27/2017 79798- Debride <25 sq cm 10/25/2021 37743- Debride <25 sq cm 02/07/2022 42287- Debride <25 sq cm 10/17/2022 08198-GZJGCDF SKIN/TISSUE 03/12/2018 90052-JORFTEO SKIN/TISSUE 06/04/2018 73126-FQXXLPZ SKIN/TISSUE 11/27/2011 36420-IWHHLLQ SKIN/TISSUE 12/11/2011 69718-PZIILEP SKIN/TISSUE 10/06/2014 49769 I&D ABSCESS- SIMPLE,SINGLE 015 53855 I&D ABSCESS- SIMPLE,SINGLE 011 68833 I&D ABSCESS- SIMPLE,SINGLE 015 89554-MQBI SKIN LESIONS, OVER 4 12/01/19 15 42423-EMDD SKIN LESIONS, OVER 4 02/07/20 15 95414-LZDG SKIN LESIONS, OVER 4 07/10/19 16 97554-GDBG SKIN LESIONS, OVER 4 05/01/19 16 89737-YWGY SKIN LESIONS, OVER 4 10/02/19 16 08237-HURW SKIN LESIONS, OVER 4 12/14/19 16 79302-TKHA SKIN LESIONS, OVER 4 02/22/20 16 77506-REQU SKIN LESIONS, OVER 4 02/28/20 17 31142-QZRM SKIN LESIONS, OVER 4 05/30/19 18 72656-ZSOL SKIN LESIONS, OVER 4 08/29/19 18 95395-BCTC SKIN LESIONS, OVER 4 11/28/19 18 68637-QECS SKIN LESIONS, OVER 4 05/31/19 17 25930-YDLW SKIN LESIONS, OVER 4 11/29/19 17 61227-UYOK SKIN LESIONS, OVER 4 06/05/19 19 41583-TDSB SKIN LESIONS, OVER 4 03/12/19 19 26800-NAVF SKIN LESIONS, OVER 4 10/18/19 23 00232-ZWJE SKIN LESIONS, OVER 4 06/14/19 23 56785-YNKJ SKIN LESIONS, OVER 4 02/18/20 23 38762-HYIV SKIN LESIONS, OVER 4 06/19/19 24 01997-OMCZ SKIN LESIONS, OVER 4 04/19/19 25 07884-VKGV SKIN LESIONS, OVER 4 10/23/19 24 67822-UKAD SKIN LESIONS, OVER 4 12/06/19 11 88495-ALXF SKIN LESIONS, OVER 4 02/07/20 11 97114-VFMK SKIN LESIONS, OVER 4 07/15/19 12 96024-DJLM SKIN LESIONS, OVER 4 04/22/19 12 36215-HNFX SKIN LESIONS, OVER 4 09/25/19 12 78757-TGRA SKIN LESIONS, OVER 4 10/28/19 12 12391-HIQL SKIN LESIONS, OVER 4 09/24/19 13 60340-UJTE SKIN LESIONS, OVER 4 12/29/19 13 33535-ZWJJ SKIN LESIONS, OVER 4 01/16/20 12 73897-PXUY SKIN LESIONS, OVER 4 04/08/19 13 18284-BCTO SKIN LESIONS, OVER 4 06/25/19 13 08936-VRJD SKIN LESIONS, OVER 4 09/22/19 15 92354-SGQQ SKIN LESIONS, OVER 4 03/21/19 15 22980-BWTA SKIN LESIONS, OVER 4 06/21/19 15 57104-OSFT SKIN LESIONS, OVER 4 03/31/19 14 15031-NEEK SKIN LESIONS, OVER 4 06/15/19 14 26778-YDZJ SKIN LESIONS, OVER 4 12/23/19 14 70030-FSZP SKIN LESIONS, OVER 4 09/21/19 14 91101-WWAW SKIN LESIONS, 2 TO 4 12/23/19 14 50919-RXHA SKIN LESIONS, 2 TO 4 06/15/19 14 05616-RCJO SKIN LESIONS, 2 TO 4 03/31/19 14 83589-PJSX SKIN LESIONS, 2 TO 4 06/21/19 15 65203-UHZL SKIN LESIONS, 2 TO 4 03/21/19 15 65194-DRYD SKIN LESIONS, 2 TO 4 12/29/19 13 20585-VPJY SKIN LESIONS, 2 TO 4 09/24/19 13 48434-LJCB SKIN LESIONS, 2 TO 4 07/13/19 22 37950-MLPH SKIN LESIONS, 2 TO 4 02/08/20 22 97972-OEKW SKIN LESIONS, 2 TO 4 10/26/19 22 67568-JEWC SKIN LESIONS, 2 TO 4 08/30/19 17 55035-Xuhd. Subungual Hematoma 2 22151-Qtfa. Subungual Hematoma 2 Next Appt Details Provider Name:Ronel Leon , 07/29/2024 09:00:00 AM, [address] [facility], [place], [address], Insurance Providers Payer Name Payer Address Payer Phone Subscriber Number Group Number Insured Name Patient Relationship to Insured Coverage Start Date Coverage End Date Medicare National Govt [employer] [address] [place] [address] [id number] Leonardo Pang Self - patient is the insured Medaitainment Blue Shield [address] [place] [address] [phone] [id number] Leonardo Pang Self - patient is the insured Medical (General) History Medical History History ICD Code osteoporosis hypertension diabetes mellitus back, hip, knee pain Arthritis Cholesterol Surgical History Surgery Date(Month/Year) hip surgery 119/1996 cocculer ear implant 12/2013 colonoscopy 05/2017 left knee replacement 12/27 Hospitalization History Reason Date(Month/Year) [facility] on foot 08/28/23 [facility] 10/23/19 12
--- OUTSIDE RECORDS SUMMARY | 2024-06-30 10:53 | XMS_ITS | Data Portability ---
Author Organization [place] [facility], [facility] Address [address] [address] Care Team Providers Care Assistant Chief Of Police Name Role Phone EMMA THOMAS Primary Care [...] Gastroeso phageal reflux disease without esophagit is 262512373 Active 2014 Gastro-eso phageal reflux disease without esophagiti s; Note: Date Diagnosed: 01/16/2015 10:07 AM (K21.9) Not Available [facility] 4 02:31:43 Sensorine ural hearing loss of bilateral ears 235043580 Active 2013 SNHL Bilaterall y; CMS Risk: low risk Note: Date Diagnosed: 12/10/2013 9:18 AM (389.18) Not Available [facility] 4 02:31:47 Deviated nasal septum 561658290 Active 2014 Septal Deviation; Note: Date Diagnosed: 08/05/2014 11:13 AM (470) ; Start Date : 08/05/2014 Deviated nasal septum; Note: Date Diagnosed: 01/16/2015 9:52 AM (J34.2) Not Available [facility] 4 02:31:48 Bilateral sensory hearing loss 294987919 Active 2013 Hearing loss: Sensory hearing loss, bilateral; Location: left Note: Date Diagnosed: 12/16/2013 11:26 AM (389.11) Not Available [facility] 4 02:31:45 Simple obesity 174505192 Active 2016 Other obesity due to excess calories; Note: Date Diagnosed: 10/09/2016 1:21 PM (E66.09) Not Available [facility] 4 02:31:33 Postopera tive follow-up visit Active 2013 Post op; Note: Date Diagnosed: 12/16/2013 11:26 AM (V67.00) Not Available [facility] 4 02:31:42 Hypertrop hy of nasal turbinate s 09519152 Active 2014 Nasal turbinate hypertroph y; Note: Date Diagnosed: 02/16/2014 12:31 PM (478.0) ; Start Date : 02/16/2014 Hypertrop hy of nasal turbinates ; Note: Date Diagnosed: 01/16/2015 9:52 AM (J34.3) Not Available [facility] 4 02:31:37 Obstructi ve sleep apnea syndrome 83562511 Active 2015 Obstructiv e sleep apnea (adult) (pediatric ); Note: Date Diagnosed: 05/04/2015 4:55 PM (G47.33) Not Available [facility] 4 02:31:48 Allergic rhinitis caused by pollen 91381513 Active 2013 Vasomotor rhinitis; Note: Date Diagnosed: 01/10/2014 2:23 PM (477.0) Not Available [facility] 4 02:31:46 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 4 10:08:47 Problem Notes None recorded. Procedures Surgical History None recorded. Imaging Results Imaging Date Name Status LastModified by [facility] Details LastModified Time 04/27/2021 imaging/diag nostic result completed Information not available 10/28/2023 21:36:47 06/01/2021 imaging/diag nostic result completed Information not available 10/28/2023 21:37:06 Procedure Notes None recorded. Medical Equipment None Reported. Allergies Allergen ID Allergen Name Allergen Category Reaction Reaction Severity Criticality Documentation Date Start Date Code Code System Note Provider Name and Address Organization Details Recorded Time 83540 Product containin g penicilli n (product) medicatio n other Not available Not available 07/22/2023 40089 8004 SNOMED React ion: Unkno wn; Not Available [facility] 4 00:23:22 Medications Name Sig Start Date Stop Date Status Note LastModified by Organization Details LastModified Time furosemid e 40 mg tablet active Medicati on ID: 477203 B rand Name: furosemi de Send Method: E-Prescr ibed Sub s Allowed: subs OK Medic ationGen ericName : furosemi de Not Available Not Available Not Available metolazon e 2.5 mg tablet active Not Available Not Available Not Available metformin 500 mg tablet 05/11 completed Medicati on ID: 97135 Br and Name: metformi n Send Method: [...] ous solution 05/11 completed Medicati on ID: 345317 D uration Value: 28 Brand Name: Lantus U-100 Insulin Send Method: E-Prescr ibed Sub s Allowed: subs OK Speci al Instruct ion: INJECT 10 UNITS SUBCUTAN EOUSLY AT BEDTIME DISCAR D VIAL AFTER 28 DAYS Medic ationGen ericName : Lantus U-100 Insulin Not Available Not Available Not Available digoxin 250 mcg (0.25 mg) tablet 05/11 completed Medicati on ID: 01918 Br and Name: digoxin Send Method: E-Prescr ibed Sub s Allowed: subs OK Medic ationGen ericName : digoxin Not Available Not Available Not Available omeprazol e 40 mg capsule,d elayed release active Medicati on ID: 239759 B rand Name: omeprazo le Send Method: E-Prescr ibed Sub s Allowed: subs OK Medic ationGen ericName : omeprazo le Not Available Not Available Not Available tramadol 50 mg tablet 05/11 completed Medicati on ID: 90029 Br and Name: tramadol Send Method: E-Prescr ibed Sub s Allowed: subs OK Medic ationGen ericName : tramadol Not Available Not Available Not Available warfarin 4 mg tablet active Not Available Not Available Not Available Nexium 20 mg capsule,d elayed release 1 capsule by mouth once a day 05/11 completed Medicati on ID: 47401 Br and Name: Nexium S end Method: [...] 0.4 mg capsule active Medicati on ID: 619928 B rand Name: tamsulos in Send Method: E-Prescr ibed Sub s Allowed: subs OK Medic ationGen ericName : tamsulos in Not Available Not Available Not Available glipizide ER 2.5 mg tablet, extended release 24 hr 05/11 completed Medicati on ID: 36967 Br and Name: glipizid e Send Method: E-Prescr ibed Sub s Allowed: subs OK Medic ationGen ericName : glipizid e Not Available Not Available Not Available warfarin 2 mg tablet active Medicati on ID: 795347 B rand Name: warfarin Send Method: E-Prescr ibed Sub s Allowed: subs OK Medic ationGen ericName : warfarin Not Available Not Available Not Available fluticaso ne propionat e 50 mcg/actua tion nasal spray,andres pension 05/11 completed Medicati on ID: [id number] D uration Value: 30 Brand Name: fluticas one propiona te Send Method: E-Prescr ibed Sub s Allowed: subs OK Speci al Instruct ion: USE 1 SPRAY IN EACH NOSTRIL TWICE A DAY Medi cationGe nericNam e: fluticas one propiona te Not Available Not Available Not Available metformin ER 500 mg tablet,ex tended release 24 hr active Medicati on ID: 591833 B rand Name: metformi n Send Method: E-Prescr ibed Sub s Allowed: subs OK Medic ationGen ericName : metformi n Not Available Not Available Not Available ipratropi um bromide 21 mcg (0.03 %) nasal spray Inhale 2 spray into both nostrils three times a day as directed 05/11 completed Medicati on ID: 13435 Br and Name: Jessica Send Method: E-Prescr [...] mcg tablet 05/11 [place] Medicati on ID: 30196 Br and Name: Centrum Silver Ultra Men's Se nd Method: E-Prescr ibed Sub s Allowed: subs OK Medic ationGen ericName : Centrum Silver Ultra Men's Not Available Not Available Not Available Vitals Date Recorded Body height Body mass index (BMI) Body weight Provider Name and Address Organization Details Last Updated DateTime 08/14/2023 172.72 cm 38 kg/m2 536748.09 g Tevin Koch [place] - [facility] 08/14/2023 10:01:01 Social History None recorded. Functional Status None recorded. Mental Status None recorded. Family History Nothing Reported. Medical History No medical history recorded. Past Encounters Encounter ID Performer Location Encounter Start Date Encounter Closed Date Diagnosis/Indication Diagnosis SNOMED-CT Code Diagnosis ICD10 Code Diagnosis Note [id number] RAMYA ARNDT MD [facility] [address] 08/14/2023 09:50:50 08/14/2023 10:16:30 Benign neoplasm of parotid gland 04242950 D11.0 Health Concerns Section Related Observation LastModified by Organization Detai ls LastModified Time None Recorded Concern Status LastModified by Organization Details LastModified Time None Recorded Advance Directives Directive None Recorded Payers Encounter Date Sequence Insurance Name Policy Number Policy Casarez Covered Member ID Casarez Member ID Guarantor Name 08/14/2023 2 [place] Leonardo Pang [id number] Leonardo Pang 08/14/2023 1 [place] [employer] Leonardo Pang [id number] Leonardo Pang Notes Date Note Type Note Provider Name and Address Organization Details Recorded Time 08/14/2023 text/html left parotid FNA 05/17/21 - warthin tumorct neck w contrast at [place] 04/27/21left parotid 2.8cm mass. compare with prior [...] cochlear implant with Dr Demetrio ARNDT MD [address] [place] [address], [phone], [facility] - [facility] 08/14/2023 10:15:11
--- OUTSIDE RECORDS SUMMARY | 2024-06-30 10:53 | XMS_ITS | Patient Health Record ---
Author Organization [facility] Address [address] [place] [address] Care Team Providers Care Quality Improvement Coordinator Name Role Phone Darien Bruner MD Primary Care Provider Griffin Alvarenga Jr Unavailable [phone] Allergies Allergen (clinical drug ingredient) Drug/Non Drug [...] Problem Status W/U Status Risk Notes Problem 221454296 Colon cancer screening (Z12.11) Active confirmed Problem 081232220 intermission coordinator (curre nt) use of anticoagulants (Z79.01) Active confirmed Problem 888412022 Personal history of colonic polyps (Z86.010) Active confirmed Problem 98797407 Encounter for ot her preprocedural examination (Z01.818) Active confirmed Problem 619835069 senior living (curre nt) use of insulin (Z79.4) Active [...] [place] [address] [place] [address] [id number] KAZ GRIFFIN Self - patient is the insured [employer] CLAIMS [address] [place] [phone] [id number] KAZ GRIFFIN Self - patient is the [...]
== END 2024-06-30 10:49 | disposition home or self-care (01) ==
LOC: HO.HMCHD 09:41
PROVIDERS: PCP Internal Medicine; Visit Provider Internal Medicine
DX: G89.4 Chronic pain syndrome (principal)

== ENCOUNTER → 2024-06-30 09:40 | Outpatient (BNVA) | payer MEDICARE, SELFPAY | PROVIDERS: PCP Internal Medicine; Visit Provider Internal Medicine | DX: G89.4 Chronic pain syndrome (principal) | CPT/HCPCS: 99202 ==

== ENCOUNTER 2024-07-09 08:01 | Outpatient (AMB) | payer MEDICARE, SELFPAY ==
--- OUTSIDE RECORDS SUMMARY | 2024-07-09 08:05 | XMS_ITS ---
Author Organization [facility] Address [address] [place] [address] Care Team Providers Care Data Designer Name Role Phone Darien Bruner MD Primary Care Provider Unavaila Ronel Reaves Unavailable [phone] REASON FOR VISIT r/s 02/22 Encounters Encounter Location Date Provider Diagnosis [address] [address] 02/12/2024 Ronel Leon Plan Of Treatment Next Appt Details Provider Name:Ronel A Edward , 07/29/2024 09:00:00 AM, [address] [place], [address], Progress Notes * Leonardo GRIFFINDOB:1950 (73 yo M)Acc No.[id number]:02/12/2024 Patient:?Leonardo GRIFFIN :1950???Age:73 Y???Sex:Male Address:[address] [place] [address], [address] * true * Date:? Generated for Printi ng/Famargog/eTransmitting on:?07/09/2024 08:05 AM EDT
--- OUTSIDE RECORDS SUMMARY | 2024-07-09 08:06 | XMS_ITS | Data Portability ---
Author Organization [place] - [facility], Allergy Address [address] [address] Care Team Providers Care Generation Engineering Technologist Name Role Phone EMMA THOMAS Primary Care [...] Gastroeso phageal reflux disease without esophagit is 217146816 Active 2014 Gastro-eso phageal reflux disease without esophagiti s; Note: Date Diagnosed: 01/16/2015 10:07 AM (K21.9) Not Available [facility] 4 02:31:43 Sensorine ural hearing loss of bilateral ears 060429867 Active 2013 SNHL Bilaterall y; CMS Risk: low risk Note: Date Diagnosed: 12/10/2013 9:18 AM (389.18) Not Available [facility] 4 02:31:47 Deviated nasal septum 091073375 Active 2014 Septal Deviation; Note: Date Diagnosed: 08/05/2014 11:13 AM (470) ; Start Date : 08/05/2014 Deviated nasal septum; Note: Date Diagnosed: 01/16/2015 9:52 AM (J34.2) Not Available [facility] 4 02:31:48 Bilateral sensory hearing loss 872219533 Active 2013 Hearing loss: Sensory hearing loss, bilateral; Location: left Note: Date Diagnosed: 12/16/2013 11:26 AM (389.11) Not Available [facility] 4 02:31:45 Simple obesity 094767993 Active 2016 Other obesity due to excess calories; Note: Date Diagnosed: 10/09/2016 1:21 PM (E66.09) Not Available [facility] 4 02:31:33 Postopera tive follow-up visit Active 2013 Post op; Note: Date Diagnosed: 12/16/2013 11:26 AM (V67.00) Not Available [facility] 4 02:31:42 Hypertrop hy of nasal turbinate s 74687828 Active 2014 Nasal turbinate hypertroph y; Note: Date Diagnosed: 02/16/2014 12:31 PM (478.0) ; Start Date : 02/16/2014 Hypertrop hy of nasal turbinates ; Note: Date Diagnosed: 01/16/2015 9:52 AM (J34.3) Not Available [facility] 4 02:31:37 Obstructi ve sleep apnea syndrome 59148753 Active 2015 Obstructiv e sleep apnea (adult) (pediatric ); Note: Date Diagnosed: 05/04/2015 4:55 PM (G47.33) Not Available [facility] 4 02:31:48 Allergic rhinitis caused by pollen 85355325 Active 2013 Vasomotor rhinitis; Note: Date Diagnosed: 01/10/2014 2:23 PM (477.0) Not Available [facility] 4 02:31:46 Neoplasm of uncertain behavior of parotid gland 20505051 Active 2021 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 Procedures Surgical History None recorded. Imaging Results Imaging Date Name Status LastModified by Organiz [facility] Details LastModified Time 04/27/2021 imaging/diag nostic result completed Information not available 10/28/2023 21:36:47 06/01/2021 imaging/diag nostic result completed Information not available 10/28/2023 21:37:06 Procedure Notes None recorded. Medical Equipment None Reported. Allergies Allergen ID Allergen Name Allergen Category Reaction Reaction Severity Criticality Documentation Date Start Date Code Code System Note Provider Name and Address Organization Details Recorded Time 02412 Product containin g penicilli n (product) medicatio n other Not available Not available 07/22/2023 13651 8008 SNOMED React ion: Unkno wn; Not Available [facility] 4 00:23:22 Medications Name Sig Start Date Stop Date Status Note LastModified by Organization Details LastModified Time furosemid e 40 mg tablet active Medicati on ID: [id number] B rand Name: furosemi de Send Method: E-Prescr ibed Sub s Allowed: subs OK Medic ationGen ericName : furosemi de Not Available Not Available Not Available metolazon e 2.5 mg tablet active Not Available Not Available Not Available metformin 500 mg tablet 05/11 completed Medicati on ID: [id number] Br and Name: metformi n Send Method: [...] ous solution 05/11 completed Medicati on ID: [id number] D uration Value: 28 Brand Name: Lantus U-100 Insulin Send Method: E-Prescr ibed Sub s Allowed: subs OK Speci al Instruct ion: INJECT 10 UNITS SUBCUTAN EOUSLY AT BEDTIME DISCAR D VIAL AFTER 28 DAYS Medic ationGen ericName : Lantus U-100 Insulin Not Available Not Available Not Available digoxin 250 mcg (0.25 mg) tablet 05/11 completed Medicati on ID: [id number] Br and Name: digoxin Send Method: E-Prescr ibed Sub s Allowed: subs OK Medic ationGen ericName : digoxin Not Available Not Available Not Available omeprazol e 40 mg capsule,d elayed release active Medicati on ID: 905142 B rand Name: omeprazo le Send Method: E-Prescr ibed Sub s Allowed: subs OK Medic ationGen ericName : omeprazo le Not Available Not Available Not Available tramadol 50 mg tablet 05/11 [place] Medicati on ID: 21761 Br and Name: tramadol Send Method: E-Prescr ibed Sub s Allowed: subs OK Medic ationGen ericName : tramadol Not Available Not Available Not Available warfarin 4 mg tablet active Not Available Not Available Not Available Nexium 20 mg capsule,d elayed release 1 capsule by mouth once a day 05/11 completed Medicati on ID: 40424 Br and Name: Nexium S end Method: [...] 0.4 mg capsule active Medicati on ID: 612107 B rand Name: tamsulos in Send Method: E-Prescr ibed Sub s Allowed: subs OK Medic ationGen ericName : tamsulos in Not Available Not Available Not Available glipizide ER 2.5 mg tablet, extended release 24 hr 05/11 completed Medicati on ID: 95323 Br and Name: glipizid e Send Method: E-Prescr ibed Sub s Allowed: subs OK Medic ationGen ericName : glipizid e Not Available Not Available Not Available warfarin 2 mg tablet active Medicati on ID: 317043 B rand Name: warfarin Send Method: E-Prescr ibed Sub s Allowed: subs OK Medic ationGen ericName : warfarin Not Available Not Available Not Available fluticaso ne propionat e 50 mcg/actua tion nasal spray,andres pension 05/11 completed Medicati on ID: [id number] D uration Value: 30 Brand Name: fluticas one propiona te Send Method: E-Prescr ibed Sub s Allowed: subs OK Speci al Instruct ion: USE 1 SPRAY IN EACH NOSTRIL TWICE A DAY Medi cationGe nericNam e: fluticas one propiona te Not Available Not Available Not Available metformin ER 500 mg tablet,ex tended release 24 hr active Medicati on ID: 151947 B rand Name: metformi n Send Method: E-Prescr ibed Sub s Allowed: subs OK Medic ationGen ericName : metformi n Not Available Not Available Not Available ipratropi um bromide 21 mcg (0.03 %) nasal spray Inhale 2 spray into both nostrils three times a day as directed 05/11 completed Medicati on ID: 69790 Br and Name: Jessica Send Method: E-Prescr [...] mcg tablet 05/11 completed Medicati on ID: 30153 Br and Name: Centrum Silver Ultra Men's Se nd Method: E-Prescr ibed Sub s Allowed: subs OK Medic ationGen ericName : Centrum Silver Ultra Men's Not Available Not Available Not Available Vitals Date Recorded Body height Body mass index (BMI) Body weight Provider Name and Address Organization Details Last Updated DateTime 08/14/2023 172.72 cm 38 kg/m2 286531.09 g Tevin Koch [place] - [facility] 08/14/2023 10:01:01 Social History None recorded. Functional Status None recorded. Mental Status None recorded. Family History Nothing Reported. Medical History No medical history recorded. Past Encounters Encounter ID Performer Location Encounter Start Date Encounter Closed Date Diagnosis/Indication Diagnosis SNOMED-CT Code Diagnosis ICD10 Code Diagnosis Note [id number] RAMYA ARNDT MD [facility] [address] 08/14/2023 09:50:50 08/14/2023 10:16:30 Benign neoplasm of parotid gland 49907253 D11.0 Health Concerns Section Related Observation LastModified by Organization Detai ls LastModified Time None Recorded Concern Status LastModified by Organization Details LastModified Time None Recorded Advance Directives Directive None Recorded Payers Encounter Date Sequence Insurance Name Policy Number Policy Casarez Covered Member ID Casarez Member ID Guarantor Name 08/14/2023 2 [place] Leonardo Pang [id number] Leonardo Pang 08/14/2023 1 [place] [employer] Leonardo Pang [id number] Leonardo Pang Notes Date Note Type Note Provider Name and Address Organization Details Recorded Time 08/14/2023 text/html left parotid FNA 05/17/21 - warthin tumorct neck w contrast at [place] 04/27/21left parotid 2.8cm mass. compare with prior [...] cochlear implant with Dr Demetrio ARNDT MD [address] [place] [address], [phone], [facility] - [facility] 08/14/2023 10:15:11
--- OUTSIDE RECORDS SUMMARY | 2024-07-09 08:06 | XMS_ITS ---
Author Organization [facility] Address [address] [place] [address] Care Team Providers Care Truck Driver Rubbish Collector Name Role Phone Darien Bruner MD Primary Care Provider Unavaila Ronel Reaves Unavailable [phone] Encounters Encounter Location Date Provider Diagnosis [address] [address] 02/23/2024 Ronel Leon Plan Of Treatment Next Appt Details Provider Name:Ronel Leon , 07/29/2024 09:00:00 AM, [address] [place], [address], Progress Notes * Leonardo GRIFFINDOB:1950 (74 yo M)Acc No.[id number]:02/23/2024 Progress Note Patient:?Leonardo GRIFFIN Provider:?Ronel Leon DPM :1950???Age:73 Y???Sex:Male En e:02/23/2024 Address:[address] [place] [address] [place], [place]-[id number] Pcp:Darien Bruner MD Subjective: * Chief Complaints: [...] Leon DPM Date:?2023 Generated for René temple/Melissa/Patel on:?07/09/2024 08:06 AM EDT
--- OUTSIDE RECORDS SUMMARY | 2024-07-09 08:06 | XMS_ITS ---
Author Organization [facility] Address [address] [facility] [place] [address] Care Team Providers Care Syrup Maker Cook Name Role Phone Darien Bruner MD Primary Care Provider Unavaila ble Black, Ronel Unavailable [phone] Allergies Allergen (clinical drug ingredient) Drug/Non Drug [...] Ordered Date Performed Result Body Sit e 48538-AHDOPDC NAIL, 6 OR MORE 04/19/2024 N/A 84030-NTOG SKIN LESIONS, OVER 4 04/19/2024 N/A Encounters Encounter Location Date Provider Diagnosis [facility] [address] [place] [address] 04/19/2024 Ronel Black Type 2 diabetes mellitus [...] Treatment Pending Test Test Name Order Date 72391-ALKHHLF NAIL, 6 OR MORE 04/19/2024 15867-HZBD SKIN LESIONS, OVER 4 04/19/19 25 Next Appt Details Follow Up: 4 Months, Reason: Provider Name:Ronel Leon , 07/29/2024 09:00:00 AM, [address] [place] [address], [phone], Procedure Notes * Category Sub-Category Detail Notes [...] use of a nail nipper and/or dremel-type flute grinder, to a more viable healthy nail [...] to maintain effectiveness in symptomatic relief - 56195 Keratoma Treatment Parring or Cutting o f [...] instrumentation by the physician of record - 60970 Progress Notes * Leonardo GRIFFINDOB:1950 (74 yo M)Acc No.[id number]:04/19/2024 Progress Note Patient:?Leonardo GRIFFIN Provider:?Ronel Leon DPM :1950???Age:74 Y???Sex:Male En e:04/19/2024 Address:[address] [place], [place] [address] Pcp:Darien Bruner MD Subjective: * Chief Complaints: * ???At Risk FootcareOpen sore * HPI: ???At Risk footcare:?Pt States Last PCP Visit:?Date?03/30/2024 ???Skin problems:?Pt States PCP Visit: ?DATE?03/30/2024 ?Location:?Midfoot , Bottom , Right, top 2,3 digit right.?Treatments:?Pt relates hospitalization end of September for open wound with infection. [facility] to the [facility] [...] knee replacement 12/27 * Hospitalization/Major Diagno stic Procedure:?[facility]2011[facility]- Lesion on foot [...] ?Marital status: . ?Occupation: retired- Disabled before [employer]. * Medications:?TakingmetOLazon e Vitamin D Furosemide 40 [...] - S90.222A??? Plan: * Treatment: 2.?Tinea unguium?Procedure: 03383-GVTIXFN NAIL, 6 OR MORE * Procedures:?Debride Nail [...] use of a nail nipper and/or dremel-type flute grinder, to a more viable healthy nail [...] to maintain effectiveness in symptomatic relief - 02549.?Keratoma Treatment:?Parring or Cutting of Benign Hyperkeratotic Lesion(s)?(-57) [...] instrumentation by the physician of record - 32018.? * Procedure Codes:?63324 DEBRI DE NAIL, 6 OR MORE, Modifiers: XS 74891 TRIM SKIN LESIONS, OVER 4, Modifiers: XS [...] Leon DPM Date:?2024 Generated for René temple/Melissa/Audreyitting on:?07/09/2024 08:05 AM EDT History and Physical Notes * HPI (History of Present Illness) Category Sub-Category Detail Notes Category Not es Skin problems Location: Midfoot , Bottom , Right, top 2,3 digit right Treatments: Pt relates [facility] end of September for open wound with infection. pt is presently being treated at [facility] [place] and [facility]NA is coming to the house [...]
--- OUTSIDE RECORDS SUMMARY | 2024-07-09 08:06 | XMS_ITS | Patient Health Record ---
Author Organization [facility] Address [address] [facility] [place] [address] Care Team Providers Care Family Sociologist Name Role Phone Darien Bruner MD Primary Care Provider Unavaila Ronel Reaves Unavailable [phone] Allergies Allergen (clinical drug ingredient) Drug/Non Drug Allergy documented on EMR Reaction Allergy Type Onset Date Status amoxicillin Amoxicillin Unknown Drug Allergy Act anneliees Penicillin Unknown Drug Allergy Active Results Component [...] Problem Acquired hammer toe of right foot (5659081559082494 ) Other hammer toe(s) (acquired), right foot (M20.41) Active confirmed Problem Acquired hammer toe of left foot (2436003462706563 ) Other hammer toe(s) (acquired), left foot (M20.42) Active confirmed Problem Plantar wart (66242000) Plantar wart (B07.0) Active confirmed Problem Ulcer of toe (827344855) Non-pressure chronic ulcer of other part of left foot limited to breakdown of skin (L97.521) Active confirmed Problem Ulcer of toe (541829601) Non-pressure chronic ulcer of other part of right foot limited to breakdown of skin (L97.511) Active confirmed Problem Acquired left hallux valgus (999518421217213) Hallux valgus (acquired), left foot (M20.12) Active confirmed Problem Acquired right hallux valgus (323726309392479) Hallux valgus (acquired), right foot (M20.11) Active confirmed Problem Polyneuropathy due to type 2 diabetes mellitus (467363327) Type 2 diabetes mellitus with diabetic polyneuropathy (E11.42) Active confirmed Problem Neuropathic arthropathy due to diabetes mellitus (344887842) Charcot foot due to diabetes mellitus (E11.610) Active confirmed Problem Difficulty balancing (520477353) Unsteady gait (R26.81) Active confirmed Problem Charcot's gait (33415042) Charcot gait (R26.0) Active confirmed Problem Ulcer of toe of right foot (disorder) (6677172879514728 1) Skin ulcer of toe of right foot, limited to breakdown of skin (L97.511) Active confirmed Problem Unstageable pressure injury of right foot (589073016364470) Pressure injury of right foot, unstageable (L89.890) Active confirmed Problem Ulcer of toe of left foot (disorder) (9010765712434245 2) Skin ulcer of toe of left foot, limited to breakdown of skin (L97.521) Active confirmed Problem Stasis dermatitis (54351348) Stasis dermatitis (I87.2) Active confirmed Vital Signs Blood pressure diastolic 60 mm Hg 04/19/2024 Height 5ft8in in 04/19/2024 Blood pressure systolic 120 mm Hg 04/19/2024 Weight 244 lbs 04/19/2024 BMI 37.1 kg/m2 04/19/2024 Procedures Procedure Date Ordered Date Performed Result Body Sit e 02539-UEGQOSO NAIL, 6 OR MORE 10/23/2023 N/A 62315-EBUG SKIN LESIONS, OVER 4 10/23/2023 N/A 82441-BZXREGD NAIL, 6 OR MORE 04/19/2024 N/A 87300-QZZW SKIN LESIONS, OVER 4 04/19/2024 N/A Encounters Encounter Location Date Provider Diagnosis [address] [address] 10/23/2023 Ronel Leon Type 2 diabetes mellitus with diabetic polyneuropathy E11.42 ; Tinea unguium B35.1 ; Charcot gait R26.0 and Pressure injury of right foot, unstageable L89.[address] [address] 04/19/2024 Ronel Leon Type 2 diabetes mellitus with diabetic polyneuropathy E11.42 ; Charcot foot due to diabetes mellitus E11.610 ; Tinea unguium B35.1 ; Charcot gait R26.0 ; Skin ulcer of toe of right foot, limited to breakdown of skin L97.511 and Subungual contusion of toe of left foot, initial encounter S90.222A [address] [address] 02/12/2024 Ronel Leon Assessments Encounter Date Diagnosis [...] Test Name Order Date Hemoglobin A1c 06/04/2018 91039-ACACVNT NAIL, 6 OR MORE 04/19/2024 87233-DKRYNKO NAIL, 6 OR MORE 12/05/2010 02202-BEMLYZM NAIL, 6 OR MORE 02/06/2011 78357-KSLETJT NAIL, 6 OR MORE 04/22/2011 38595-EGUUVRN NAIL, 6 OR MORE 07/15/2011 96641-IZMERAW NAIL, 6 OR MORE 09/25/2011 29218-RYQCZEX NAIL, 6 OR MORE 10/28/2011 47895-SOAWMMN NAIL, 6 OR MORE 01/16/2012 69599-FBFIZKI NAIL, 6 OR MORE 04/08/2012 02819-NQVUCFI NAIL, 6 OR MORE 06/24/2012 11462-VGSQNWH NAIL, 6 OR MORE 09/23/2012 07708-PFYQDNU NAIL, 6 OR MORE 12/28/2012 64413-FEGJFNZ NAIL, 6 OR MORE 03/31/2013 67651-JFKNLEU NAIL, 6 OR MORE 06/14/2013 21183-WOEKDLH NAIL, 6 OR MORE 09/20/2013 98804-YJAZVVG NAIL, 6 OR MORE 12/22/2013 07785-UEPHRWE NAIL, 6 OR MORE 03/21/2014 56524-FEHTGUE NAIL, 6 OR MORE 06/20/2014 74607-IAUVLCU NAIL, 6 OR MORE 09/21/2014 62999-OWUTRAW NAIL, 6 OR MORE 11/30/2014 17107-UCXYODT NAIL, 6 OR MORE 02/06/2015 23085-UGGTBBY NAIL, 6 OR MORE 05/01/2015 65161-OWOUIPN NAIL, 6 OR MORE 07/10/2015 57497-EPWSKRX NAIL, 6 OR MORE 10/02/2015 12442-IKUUHXF NAIL, 6 OR MORE 12/14/2015 79643-XUHEAOV NAIL, 6 OR MORE 02/22/2016 76041-OIEMWRC NAIL, 6 OR MORE 05/30/2016 36376-YZIKLAF NAIL, 6 OR MORE 08/29/2016 72439-SQEOPON NAIL, 6 OR MORE 11/28/2016 53365-EYKAEQI NAIL, 6 OR MORE 02/27/2017 94793-UJIZLUB NAIL, 6 OR MORE 05/29/2017 14168-PELZEPU NAIL, 6 OR MORE 08/28/2017 14175-VCTBYOS NAIL, 6 OR MORE 03/12/2018 98358-NBYBMHQ NAIL, 6 OR MORE 11/27/2017 23495-JVLOHIZ NAIL, 6 OR MORE 06/04/2018 04379-WCFBTBD NAIL, 6 OR MORE 07/12/2021 92839-SFDGMWV NAIL, 6 OR MORE 10/25/2021 09810-ETFOVKJ NAIL, 6 OR MORE 02/07/2022 62441-HEBNGJR NAIL, 6 OR MORE 06/13/2022 22024-AUJELES NAIL, 6 OR MORE 10/17/2022 35450-EIILFJO NAIL, 6 OR MORE 02/17/2023 40441-VAIDXAL NAIL, 6 OR MORE 06/19/2023 13904-GCNZGLD NAIL, 6 OR MORE 10/23/2023 68132-Dzlv Destruction, 1-14 02/17/2023 55999-Ugox Destruction, 1-06/19/2023 91080-Ouwa Destruction, 1-14 06/13/2022 80560-Molx Destruction, 1-14 10/17/2022 96237-Tkffkjvs Plate 07/12/2021 52784-Vqiikobf Plate 10/25/2021 97105-Ugarzcsb Plate 05/29/2017 12402-Bryrumhq Plate 08/29/2016 62102-Emqoqror Plate 11/30/2014 86347-Eaubunda Plate 09/21/2014 60878-Fcjqvfyh Plate 06/14/2013 35713-Omlginem Plate 06/20/2014 82085-Wxwsxsyq Plate 03/21/2014 28919-Lpvkmwjk Plate 12/22/2013 24068-Wwnudeio Plate 09/20/2013 74879- Debride <25 sq cm 09/20/2013 48104- Debride <25 sq cm 12/22/2013 19063- Debride <25 sq cm 06/14/2013 06557- Debride <25 sq cm 03/31/2013 52378- Debride <25 sq cm 03/21/2014 33598- Debride <25 sq cm 06/20/2014 65334- Debride <25 sq cm 09/21/2014 30811- Debride <25 sq cm 12/28/2012 19224- Debride <25 sq cm 09/23/2012 35112- Debride <25 sq cm 06/24/2012 29512- Debride <25 sq cm 04/08/2012 36268- Debride <25 sq cm 01/16/2012 85267- Debride <25 sq cm 10/28/2011 25712- Debride <25 sq cm 09/02/2011 81972- Debride <25 sq cm 09/25/2011 79826- Debride <25 sq cm 12/26/2010 27808- Debride <25 sq cm 02/22/2016 01060- Debride <25 sq cm 12/14/2015 90087- Debride <25 sq cm 10/02/2015 60270- Debride <25 sq cm 10/12/2015 52309- Debride <25 sq cm 10/06/2014 13759- Debride <25 sq cm 05/30/2016 47717- Debride <25 sq cm 02/27/2017 57222- Debride <25 sq cm 10/25/2021 05667- Debride <25 sq cm 02/07/2022 25176- Debride <25 sq cm 10/17/2022 84156-QGHGIOG SKIN/TISSUE 03/12/2018 81382-RYXDDBK SKIN/TISSUE 06/04/2018 07480-FXBESQA SKIN/TISSUE 11/27/2011 48993-RULQXZV SKIN/TISSUE 12/11/2011 51807-TCOTVRC SKIN/TISSUE 10/06/2014 71122 I&D ABSCESS- SIMPLE,SINGLE 015 53338 I&D ABSCESS- SIMPLE,SINGLE 011 33658 I&D ABSCESS- SIMPLE,SINGLE 015 00672-ETNQ SKIN LESIONS, OVER 4 12/01/19 15 04317-TVKK SKIN LESIONS, OVER 4 02/07/20 15 75572-POQD SKIN LESIONS, OVER 4 07/10/19 16 80918-LGRQ SKIN LESIONS, OVER 4 05/01/19 16 48330-OBFW SKIN LESIONS, OVER 4 10/02/19 16 07672-MMMM SKIN LESIONS, OVER 4 12/14/19 16 00247-ONOE SKIN LESIONS, OVER 4 02/22/20 16 06022-PNGX SKIN LESIONS, OVER 4 02/28/20 17 32364-SUTA SKIN LESIONS, OVER 4 05/30/19 18 96616-MSFC SKIN LESIONS, OVER 4 08/29/19 18 80674-HGMH SKIN LESIONS, OVER 4 11/28/19 18 05474-BGTR SKIN LESIONS, OVER 4 05/31/19 17 07856-AVKM SKIN LESIONS, OVER 4 11/29/19 17 43052-DBBM SKIN LESIONS, OVER 4 06/05/19 19 82071-LZWW SKIN LESIONS, OVER 4 03/12/19 19 36657-TEQD SKIN LESIONS, OVER 4 10/18/19 23 97196-RYTA SKIN LESIONS, OVER 4 06/14/19 23 67228-LKFS SKIN LESIONS, OVER 4 02/18/20 23 74791-XNBO SKIN LESIONS, OVER 4 06/19/19 24 44511-EXAO SKIN LESIONS, OVER 4 04/19/19 25 49675-PFBK SKIN LESIONS, OVER 4 10/23/19 24 62194-DFWQ SKIN LESIONS, OVER 4 12/06/19 11 90532-GMLX SKIN LESIONS, OVER 4 02/07/20 11 31277-NARV SKIN LESIONS, OVER 4 07/15/19 12 24402-UCFF SKIN LESIONS, OVER 4 04/22/19 12 53800-SDZJ SKIN LESIONS, OVER 4 09/25/19 12 53932-GFCX SKIN LESIONS, OVER 4 10/28/19 12 88985-USLJ SKIN LESIONS, OVER 4 09/24/19 13 46624-NQYQ SKIN LESIONS, OVER 4 12/29/19 13 72557-CTWL SKIN LESIONS, OVER 4 01/16/20 12 05502-CJWY SKIN LESIONS, OVER 4 04/08/19 13 24518-CYNR SKIN LESIONS, OVER 4 06/25/19 13 16880-REBT SKIN LESIONS, OVER 4 09/22/19 15 37033-KTRN SKIN LESIONS, OVER 4 03/21/19 15 07422-NIJE SKIN LESIONS, OVER 4 06/21/19 15 86945-MEWI SKIN LESIONS, OVER 4 03/31/19 14 00644-RPXN SKIN LESIONS, OVER 4 06/15/19 14 93508-KUDV SKIN LESIONS, OVER 4 12/23/19 14 00153-ZPWB SKIN LESIONS, OVER 4 09/21/19 14 27190-BQJT SKIN LESIONS, 2 TO 4 12/23/19 14 68441-OLQF SKIN LESIONS, 2 TO 4 06/15/19 14 82003-DWUJ SKIN LESIONS, 2 TO 4 03/31/19 14 23693-YOZI SKIN LESIONS, 2 TO 4 06/21/19 15 16693-UQQF SKIN LESIONS, 2 TO 4 03/21/19 15 88317-KARS SKIN LESIONS, 2 TO 4 12/29/19 13 61616-TIKD SKIN LESIONS, 2 TO 4 09/24/19 13 90420-JSEE SKIN LESIONS, 2 TO 4 07/13/19 22 54583-GKPL SKIN LESIONS, 2 TO 4 02/08/20 22 75069-PEMG SKIN LESIONS, 2 TO 4 10/26/19 22 09251-QCXR SKIN LESIONS, 2 TO 4 08/30/19 17 42271-Wamg. Subungual Hematoma 2 47606-Eutv. Subungual Hematoma 2 Next Appt Details Provider Name:Ronel Leon , 07/29/2024 09:00:00 AM, [address] [facility], [place], [address], Insurance Providers Payer Name Payer Address Payer Phone Subscriber Number Group Number Insured Name Patient Relationship to Insured Coverage Start Date Coverage End Date Medicare National Govt [employer] [address] [place] [address] [id number] Leonardo Pang Self - patient is the insured [employer] [address] [place] [address] [id number] Leonardo Pang Self - patient is the insured Medical (General) History Medical History History ICD Code osteoporosis hypertension diabetes mellitus back, hip, knee pain Arthritis Cholesterol Surgical History Surgery Date(Month/Year) hip surgery 119/1996 cocculer ear implant 12/2013 colonoscopy 05/2017 left knee replacement 12/27 Hospitalization History Reason Date(Month/Year) [facility]- Lesion [facility] foot 08/28/23 [facility] for a-fib 10/23/19 12
--- OUTSIDE RECORDS SUMMARY | 2024-07-09 08:06 | XMS_ITS | Clinical Summary ---
Author Organization Formerly [facility] Address [address] [place] [address] Care Team Providers Care Group Underwriter Name Role Phone Darien Bruner MD Primary Care Provider [phone] Allergies Active Allergy Reactions Criticality Noted Date Comments Penicillins Unknown/Patient and Family Unable to Define Medium 02/10/2024 Medications SUPPLY DME MISCIndications :Pain in right ankle and joints of right foot RT ANKLE / Foot NOORVIK Boot Dx: Diabetic Neuropathy, RT Plantar foot [...] topic Insurance MEDICARE PART A & B [place] [id number] Care Teams Group Underwriter Relationship Specialty Start Date End Date Darien Bruner MD [address] [place] [address] [place] [address] PCP - General 01/19/24
[2024-07-09 08:24] LABS: Prothrombin Time Whole Bld POC 40.5 sec (11.1-13.5); ~PT, ~INR - Anti Coag Clinic 3.4 (0.9-1.1)
--- NOTE | 2024-07-09 08:31 | MHC.OFFVISCO ---
Intake Intake Visit Reasons: Anticoagulation Allergies Penicillins [PENICILLINS] Allergy (Intermediate, Verified 07/09/24 08:18) rash- STATES BAD RXN CHILD Medication List - Last Reconciled 07/09/24 by Sayra Adorno RN blood sugar diagnostic As directed carvedilol 12.5 mg PO DAILY cholecalciferol (vitamin D3) 50 mcg PO DAILY@1600 ferrous sulfate (iron) 325 mg PO DAILY furosemide 80 mg PO MOWEFR@0900 glipizide ER 10 mg PO BID metformin ER 500 mg PO TID metolazone 2.5 mg PO SA@0900 vamwzazplgbw-dczkzhfn-tbfbzt 1 tab PO DAILY naloxone 4 mg/actuation (Narcan) 4 mg intranasal Q2M oxycodone-acetaminophen 5-325 mg 1 tab PO 5XD PRN 30 days pravastatin 80 mg PO BEDTIME tamsulosin 0.4 mg PO DAILY@1700 tizanidine 2 mg PO BEDTIME warfarin 4 mg PO DAILY warfarin 6 mg See Protocol PO DAILY@1800 Nursing Note INR: 3.4 out of therapeutic range Medications and supplements reviewed pt has been eating more peanuts recently and perhaps not enough greens No changes in health, medications, or supplements, Denies any signs and symptoms of bleeding or bruising or clotting. Bleeding, bruising, clotting discussed Nutritional guidance given - eat more cooked greens when eating more peanuts- he states he likes broccoli and will have it weekly Dose: 4mg today then resume 6mg daily F/U INR: 4 weeks due to copay cost for pt Patient verbalizes understanding of instructions given Anti-Coag Initial Assessment Social Hx Patient Tobacco Use Status: Former Tobacco user Tobacco use type: Cigarette alcohol intake: former Alcohol intake frequency: does not drink Coding Level of Care Code Est Patient Level 1 Diagnoses Current use of anticoagulant therapy Z79.01 Results AMB INR Fingerstick AMB INR Fingerstick 3.4 Last Edit by Sayra Adorno RN on 07/09/24 08:30 MANUAL ENTRY Assessment & Plan Assessment & Plan (1) Current use of anticoagulant therapy: Code(s): Z79.01 - MCFP (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
== END 2024-07-09 08:35 | disposition home or self-care (01) ==
LOC: HO.ACS 08:01
PROVIDERS: PCP Internal Medicine; Visit Provider Internal Medicine Medical Oncology
DX: Z79.01 Long term (current) use of anticoagulants (principal)

== ENCOUNTER → 2024-07-09 08:01 | Outpatient (BNVA) | payer MEDICARE, SELFPAY | PROVIDERS: PCP Internal Medicine; Visit Provider Internal Medicine Medical Oncology | DX: I48.20 Chronic atrial fibrillation, unspecified (principal); Z51.81 Encounter for therapeutic drug level monitoring; Z79.01 Long term (current) use of anticoagulants | CPT/HCPCS: 85610; 99211 ==

== ENCOUNTER → 2024-07-13 08:43 | Outpatient (REF) | payer MEDICARE, SELFPAY ==
--- OUTSIDE RECORDS SUMMARY | 2024-07-13 09:11 | XMS_ITS | Clinical Summary ---
Author Organization [facility] Address [address] [place] [address] Care Team Providers Care Hogshead Builder Name Role Phone Darien Bruner MD Primary Care Provider [phone] Allergies Active Allergy Reactions Criticality Noted Date Comments Penicillins Unknown/Patient and Family Unable to Define Medium 02/10/2024 Medications SUPPLY DME MISCIndications :Pain in right ankle and joints of right foot RT ANKLE / Foot FOND [place] Boot Dx: Diabetic Neuropathy, RT Plantar foot [...] topic Insurance MEDICARE PART A & B [place] [id number] Care Teams Hogshead Builder Relationship Specialty Start Date End Date Darien Bruner MD [address] [place] [address] [place] [address] PCP - General 01/19/24
--- OUTSIDE RECORDS SUMMARY | 2024-07-13 09:11 | XMS_ITS ---
Author Organization [facility] Address [address] [place] [address] Care Team Providers Care Protective Services Social Worker Name Role Phone Darien Bruner MD Primary Care Provider Unavaila Ronel Reaves Unavailable [phone] REASON FOR VISIT r/s 02/22 Encounters Encounter Location Date Provider Diagnosis [address] [address] 02/12/2024 Ronel Leon Plan Of Treatment Next Appt Details Provider Name:Ronel A Edward , 07/29/2024 09:00:00 AM, [address] [place], [address], Progress Notes * Leonardo GRIFFINDOB:1950 (73 yo M)Acc No.[id number]:02/12/2024 Patient:?Leonardo GRIFFIN :1950???Age:73 Y???Sex:Male Address:[address] [place] [address], [address] * true * Date:? Generated for Printi ng/Famargog/eTransmitting on:?07/13/2024 09:11 AM EDT
--- OUTSIDE RECORDS SUMMARY | 2024-07-13 09:11 | XMS_ITS ---
Author Organization [facility] Address [address] [facility] [place] [address] Care Team Providers Care Stock Buyer Name Role Phone Darien Bruner MD Primary Care Provider Unavaila ble Black, Ronel Unavailable [phone] Allergies Allergen (clinical drug ingredient) Drug/Non Drug [...] Ordered Date Performed Result Body Sit e 49071-ILZZVEA NAIL, 6 OR MORE 04/19/2024 N/A 56354-XSIP SKIN LESIONS, OVER 4 04/19/2024 N/A Encounters Encounter Location Date Provider Diagnosis [facility] [place] [address] [place] [address] 04/19/2024 Ronel Black Type 2 diabetes mellitus [...] Treatment Pending Test Test Name Order Date 01422-ADXPEOD NAIL, 6 OR MORE 04/19/2024 25082-ZKYD SKIN LESIONS, OVER 4 04/19/19 25 Next Appt Details Follow Up: 4 Months, Reason: Provider Name:Ronel Leon , 07/29/2024 09:00:00 AM, [address] [place] [address], [address], Procedure Notes * Category Sub-Category Detail Notes [...] use of a nail nipper and/or dremel-type grinder operator automatic, to a more viable healthy nail plate [...] to maintain effectiveness in symptomatic relief - 15622 Keratoma Treatment Parring or Cutting o f [...] instrumentation by the physician of record - 94425 Progress Notes * Leonardo GRIFFINDOB:1950 (74 yo M)Acc No.[id number]:04/19/2024 Progress Note Patient:?Leonardo GRIFFIN Provider:?Ronel Leon DPM :1950???Age:74 Y???Sex:Male En e:04/19/2024 Address:[address] [place], [place] [address] Pcp:Darien Bruner MD Subjective: * Chief Complaints: * ???At Risk FootcareOpen sore * HPI: ???At Risk footcare:?Pt States Last PCP Visit:?Date?03/30/2024 ???Skin problems:?Pt States PCP Visit: ?DATE?03/30/2024 ?Location:?Midfoot , Bottom , Right, top 2,3 digit right.?Treatments:?Pt relates hospitalization end of September for open wound with infection. [facility] [place] [facility] is coming to the [facility] [...] knee replacement 12/27 * Hospitalization/Major Diagno stic Procedure:?[facility]- Lesion on [facility] [...] ?Marital status: . ?Occupation: retired- Disabled before halfway. * Medications:?TakingmetOLazon e Vitamin D Furosemide 40 [...] - S90.222A??? Plan: * Treatment: 2.?Tinea unguium?Procedure: 16478-DNBRYVG NAIL, 6 OR MORE * Procedures:?Debride Nail [...] use of a nail nipper and/or dremel-type grinder operator automatic, to a more viable healthy nail plate [...] to maintain effectiveness in symptomatic relief - 27181.?Keratoma Treatment:?Parring or Cutting of Benign Hyperkeratotic Lesion(s)?(-57) [...] instrumentation by the physician of record - 29687.? * Procedure Codes:?13811 DEBRI DE NAIL, 6 OR MORE, Modifiers: XS 42237 TRIM SKIN LESIONS, OVER 4, Modifiers: XS [...] Leon DPM Date:?2024 Generated for René temple/Melissa/Audreyitting on:?07/13/2024 09:11 AM EDT History and Physical Notes * HPI (History of Present Illness) Category Sub-Category Detail Notes Category Not es Skin problems Location: Midfoot , Bottom , Right, top 2,3 digit right Treatments: [facility] end of September for open wound with infection. pt is presently being treated at [facility] [place] and [facility] is coming to the house [...]
--- OUTSIDE RECORDS SUMMARY | 2024-07-13 09:11 | XMS_ITS ---
Author Organization [facility] Address [address] [place] [address] Care Team Providers Care Senior Developer Name Role Phone Darien Bruner MD Primary Care Provider Unavaila Ronel Reaves Unavailable [phone] Encounters Encounter Location Date Provider Diagnosis [address] [address] 02/23/2024 Ronel Leon Plan Of Treatment Next Appt Details Provider Name:Ronel Leon , 07/29/2024 09:00:00 AM, [address] [place], [address], Progress Notes * Leonardo GRIFFINDOB:1950 (74 yo M)Acc No.[id number]:02/23/2024 Progress Note Patient:?Leonardo GRIFFIN Provider:?Ronel Leon DPM :1950???Age:73 Y???Sex:Male En e:02/23/2024 Address:[address] [place] [address] [place], [place] Pcp:Darien Bruner MD Subjective: * Chief Complaints: [...] Leon DPM Date:?2023 Generated for René temple/Melissa/Patel on:?07/13/2024 09:11 AM EDT
--- OUTSIDE RECORDS SUMMARY | 2024-07-13 09:11 | XMS_ITS | Patient Health Record ---
Author Organization [facility] Address [address] [facility] [place] [address] Care Team Providers Care Hog Operator Name Role Phone Darien Bruner MD Primary Care Provider Unavaila Ronel Reaves Unavailable [phone] Allergies Allergen (clinical drug ingredient) Drug/Non Drug [...] Problem Acquired hammer toe of right foot (2853575431254266 ) Other hammer toe(s) (acquired), right foot (M20.41) Active confirmed Problem Acquired hammer toe of left foot (9146254243890010 ) Other hammer toe(s) (acquired), left foot (M20.42) Active confirmed Problem Plantar wart (46715308) Plantar wart (B07.0) Active confirmed Problem Ulcer of toe (602158031) Non-pressure chronic ulcer of other part of left foot limited to breakdown of skin (L97.521) Active confirmed Problem Ulcer of toe (150369365) Non-pressure chronic ulcer of other part of right foot limited to breakdown of skin (L97.511) Active confirmed Problem Acquired left hallux valgus (161471307161976) Hallux valgus (acquired), left foot (M20.12) Active confirmed Problem Acquired right hallux valgus (492937868715414) Hallux valgus (acquired), right foot (M20.11) Active confirmed Problem Polyneuropathy due to type 2 diabetes mellitus (743874310) Type 2 diabetes mellitus with diabetic polyneuropathy (E11.42) Active confirmed Problem Neuropathic arthropathy due to diabetes mellitus (971780440) Charcot foot due to diabetes mellitus (E11.610) Active confirmed Problem Difficulty balancing (846586876) Unsteady gait (R26.81) Active confirmed Problem Charcot's gait (05737992) Charcot gait (R26.0) Active confirmed Problem Ulcer of toe of right foot (disorder) (0040507429120687 1) Skin ulcer of toe of right foot, limited to breakdown of skin (L97.511) Active confirmed Problem Unstageable pressure injury of right foot (979970873153610) Pressure injury of right foot, unstageable (L89.890) Active confirmed Problem Ulcer of toe of left foot (disorder) (8292950351323437 2) Skin ulcer of toe of left foot, limited to breakdown of skin (L97.521) Active confirmed Problem Stasis dermatitis (51246133) Stasis dermatitis (I87.2) Active confirmed Vital Signs Blood pressure diastolic 60 mm Hg 04/19/2024 Height 5ft8in in 04/19/2024 Blood pressure systolic 120 mm Hg 04/19/2024 Weight 244 lbs 04/19/2024 BMI 37.1 kg/m2 04/19/2024 Procedures Procedure Date Ordered Date Performed Result Body Sit e 97774-XOIRVEH NAIL, 6 OR MORE 10/23/2023 N/A 08007-ALZX SKIN LESIONS, OVER 4 10/23/2023 N/A 50599-OBCDKRQ NAIL, 6 OR MORE 04/19/2024 N/A 70412-WINJ SKIN LESIONS, OVER 4 04/19/2024 N/A Encounters Encounter Location Date Provider Diagnosis [address] [address] 10/23/2023 Ronel Leon Type 2 diabetes mellitus with diabetic polyneuropathy E11.42 ; Tinea unguium B35.1 ; Charcot gait R26.0 and Pressure injury of right foot, unstageable L89.[address] [address] 04/19/2024 Ronel Leon Type 2 diabetes mellitus with diabetic polyneuropathy E11.42 ; Charcot foot due to diabetes mellitus E11.610 ; Tinea unguium B35.1 ; Charcot gait R26.0 ; Skin ulcer of toe of right foot, limited to breakdown of skin L97.511 and Subungual contusion of toe of left foot, initial encounter S90.222A [address] [address] 02/12/2024 Ronel Leon Assessments Encounter Date Diagnosis [...] Test Name Order Date Hemoglobin A1c 06/04/2018 49854-HNTOIHD NAIL, 6 OR MORE 04/19/2024 19670-IRDMZEY NAIL, 6 OR MORE 12/05/2010 27854-BMYVJQT NAIL, 6 OR MORE 02/06/2011 15994-FOHGTHI NAIL, 6 OR MORE 04/22/2011 61724-FTMLEGE NAIL, 6 OR MORE 07/15/2011 05967-KSULSOF NAIL, 6 OR MORE 09/25/2011 15968-TQYLZHO NAIL, 6 OR MORE 10/28/2011 48467-EQCCCFO NAIL, 6 OR MORE 01/16/2012 23213-EODWPMB NAIL, 6 OR MORE 04/08/2012 30070-KDHXYGG NAIL, 6 OR MORE 06/24/2012 02545-GBJBKWZ NAIL, 6 OR MORE 09/23/2012 48062-ROSFYQC NAIL, 6 OR MORE 12/28/2012 38536-LZBOJUB NAIL, 6 OR MORE 03/31/2013 29743-NSNIEGO NAIL, 6 OR MORE 06/14/2013 24270-IODRARA NAIL, 6 OR MORE 09/20/2013 24419-AGQVFFZ NAIL, 6 OR MORE 12/22/2013 34002-JLWZVZV NAIL, 6 OR MORE 03/21/2014 05790-SQCWWJN NAIL, 6 OR MORE 06/20/2014 28790-WYMDTEZ NAIL, 6 OR MORE 09/21/2014 62359-SRUTSKX NAIL, 6 OR MORE 11/30/2014 56066-XSPBZDM NAIL, 6 OR MORE 02/06/2015 59266-RZBTZEY NAIL, 6 OR MORE 05/01/2015 76664-CYXUBSA NAIL, 6 OR MORE 07/10/2015 16338-HIQJNFY NAIL, 6 OR MORE 10/02/2015 36521-CDEJIWY NAIL, 6 OR MORE 12/14/2015 49529-WIQRFNL NAIL, 6 OR MORE 02/22/2016 77893-UQJGLCX NAIL, 6 OR MORE 05/30/2016 93859-TAGOFGV NAIL, 6 OR MORE 08/29/2016 17222-ZARXARN NAIL, 6 OR MORE 11/28/2016 57140-XMPSGMQ NAIL, 6 OR MORE 02/27/2017 41322-DQIRFCW NAIL, 6 OR MORE 05/29/2017 71141-ZAYENIK NAIL, 6 OR MORE 08/28/2017 00568-AKJTGHI NAIL, 6 OR MORE 03/12/2018 58461-KXTNSTD NAIL, 6 OR MORE 11/27/2017 87591-ZGXHYGI NAIL, 6 OR MORE 06/04/2018 02120-WBDAQDZ NAIL, 6 OR MORE 07/12/2021 68585-DLYFRWW NAIL, 6 OR MORE 10/25/2021 47806-DHBBZAY NAIL, 6 OR MORE 02/07/2022 09029-AVWMZVY NAIL, 6 OR MORE 06/13/2022 59175-ZLKOIMX NAIL, 6 OR MORE 10/17/2022 39033-EOTNHCY NAIL, 6 OR MORE 02/17/2023 15655-TTSFHRD NAIL, 6 OR MORE 06/19/2023 83704-JMXVMRQ NAIL, 6 OR MORE 10/23/2023 51705-Lfuo Destruction, 1-14 02/17/2023 96172-Uiph Destruction, 1-06/19/2023 21168-Ayps Destruction, 1-14 06/13/2022 71623-Yqnu Destruction, 1-14 10/17/2022 34054-Rcahnwhr Plate 07/12/2021 63834-Qgpbmjpl Plate 10/25/2021 26470-Xpreepdc Plate 05/29/2017 62522-Hadpqhkf Plate 08/29/2016 52474-Pqsibpjt Plate 11/30/2014 90341-Ubyfuwcm Plate 09/21/2014 44227-Fhnotaxm Plate 06/14/2013 92451-Pkhkzjmt Plate 06/20/2014 84271-Gstlvtxw Plate 03/21/2014 39598-Gsoxxlnf Plate 12/22/2013 10368-Vlpopoix Plate 09/20/2013 51977- Debride <25 sq cm 09/20/2013 24212- Debride <25 sq cm 12/22/2013 17278- Debride <25 sq cm 06/14/2013 44514- Debride <25 sq cm 03/31/2013 53822- Debride <25 sq cm 03/21/2014 30392- Debride <25 sq cm 06/20/2014 47345- Debride <25 sq cm 09/21/2014 81928- Debride <25 sq cm 12/28/2012 28278- Debride <25 sq cm 09/23/2012 44708- Debride <25 sq cm 06/24/2012 90593- Debride <25 sq cm 04/08/2012 35765- Debride <25 sq cm 01/16/2012 85381- Debride <25 sq cm 10/28/2011 36942- Debride <25 sq cm 09/02/2011 23775- Debride <25 sq cm 09/25/2011 26876- Debride <25 sq cm 12/26/2010 06496- Debride <25 sq cm 02/22/2016 49951- Debride <25 sq cm 12/14/2015 31513- Debride <25 sq cm 10/02/2015 11751- Debride <25 sq cm 10/12/2015 51884- Debride <25 sq cm 10/06/2014 14402- Debride <25 sq cm 05/30/2016 41918- Debride <25 sq cm 02/27/2017 46306- Debride <25 sq cm 10/25/2021 43141- Debride <25 sq cm 02/07/2022 87702- Debride <25 sq cm 10/17/2022 65252-LRUCXHH SKIN/TISSUE 03/12/2018 65231-VJCNANY SKIN/TISSUE 06/04/2018 27890-JXYIGCY SKIN/TISSUE 11/27/2011 46380-SQRVBQX SKIN/TISSUE 12/11/2011 90473-WCJSWUK SKIN/TISSUE 10/06/2014 39035 I&D ABSCESS- SIMPLE,SINGLE 015 69822 I&D ABSCESS- SIMPLE,SINGLE 011 95463 I&D ABSCESS- SIMPLE,SINGLE 015 20743-HMEM SKIN LESIONS, OVER 4 12/01/19 15 83627-EQID SKIN LESIONS, OVER 4 02/07/20 15 09410-QOYL SKIN LESIONS, OVER 4 07/10/19 16 77762-HASY SKIN LESIONS, OVER 4 05/01/19 16 03307-WFXK SKIN LESIONS, OVER 4 10/02/19 16 40901-WFVI SKIN LESIONS, OVER 4 12/14/19 16 74894-MGHS SKIN LESIONS, OVER 4 02/22/20 16 27069-NQIU SKIN LESIONS, OVER 4 02/28/20 17 75572-EPVI SKIN LESIONS, OVER 4 05/30/19 18 45776-JZQG SKIN LESIONS, OVER 4 08/29/19 18 78742-RTDD SKIN LESIONS, OVER 4 11/28/19 18 79978-BGEE SKIN LESIONS, OVER 4 05/31/19 17 90525-PKOU SKIN LESIONS, OVER 4 11/29/19 17 29445-ENLR SKIN LESIONS, OVER 4 06/05/19 19 57859-AXQG SKIN LESIONS, OVER 4 03/12/19 19 00361-KTDD SKIN LESIONS, OVER 4 10/18/19 23 47149-JLFX SKIN LESIONS, OVER 4 06/14/19 23 44272-OTGS SKIN LESIONS, OVER 4 02/18/20 23 31866-FLCU SKIN LESIONS, OVER 4 06/19/19 24 08179-XVRE SKIN LESIONS, OVER 4 04/19/19 25 57901-RFCI SKIN LESIONS, OVER 4 10/23/19 24 94527-TPJA SKIN LESIONS, OVER 4 12/06/19 11 97189-AMLP SKIN LESIONS, OVER 4 02/07/20 11 29856-ETFQ SKIN LESIONS, OVER 4 07/15/19 12 48762-APAZ SKIN LESIONS, OVER 4 04/22/19 12 49711-GNTE SKIN LESIONS, OVER 4 09/25/19 12 02922-PCOD SKIN LESIONS, OVER 4 10/28/19 12 04135-BVSA SKIN LESIONS, OVER 4 09/24/19 13 26004-RNAT SKIN LESIONS, OVER 4 12/29/19 13 10972-PKSS SKIN LESIONS, OVER 4 01/16/20 12 96971-ECPM SKIN LESIONS, OVER 4 04/08/19 13 21792-WEQO SKIN LESIONS, OVER 4 06/25/19 13 38151-PGDK SKIN LESIONS, OVER 4 09/22/19 15 16071-INNF SKIN LESIONS, OVER 4 03/21/19 15 19873-MCIN SKIN LESIONS, OVER 4 06/21/19 15 95792-LARL SKIN LESIONS, OVER 4 03/31/19 14 85082-GMPV SKIN LESIONS, OVER 4 06/15/19 14 35808-ZZMH SKIN LESIONS, OVER 4 12/23/19 14 99984-RGHC SKIN LESIONS, OVER 4 09/21/19 14 93775-TCPC SKIN LESIONS, 2 TO 4 12/23/19 14 81264-ZFTH SKIN LESIONS, 2 TO 4 06/15/19 14 51606-TQSM SKIN LESIONS, 2 TO 4 03/31/19 14 74453-BAIP SKIN LESIONS, 2 TO 4 06/21/19 15 11000-TZJR SKIN LESIONS, 2 TO 4 03/21/19 15 67445-BWIE SKIN LESIONS, 2 TO 4 12/29/19 13 45191-QUPY SKIN LESIONS, 2 TO 4 09/24/19 13 61395-IRJZ SKIN LESIONS, 2 TO 4 07/13/19 22 22885-CIDK SKIN LESIONS, 2 TO 4 02/08/20 22 27300-WDJZ SKIN LESIONS, 2 TO 4 10/26/19 22 72813-UDGC SKIN LESIONS, 2 TO 4 08/30/19 17 10693-Pplg. Subungual Hematoma 2 98501-Sixl. Subungual Hematoma 2 Next Appt Details Provider Name:Ronel Leon , 07/29/2024 09:00:00 AM, [address] [facility], [place], [address], Insurance Providers Payer Name Payer Address Payer Phone Subscriber Number Group Number Insured Name Patient Relationship to Insured Coverage Start Date Coverage End Date Medicare National Govt [employer] [address] [place] [address] [id number] Leonardo Pang Self - patient is the insured [employer] Blue Shield [address] [place] [address] [id number] Leonardo Pang Self - patient is the insured Medical (General) History Medical History History ICD Code osteoporosis hypertension diabetes mellitus back, hip, knee pain Arthritis Cholesterol Surgical History Surgery Date(Month/Year) hip surgery 119/1996 cocculer ear implant 12/2013 colonoscopy 05/2017 left knee replacement 12/27 Hospitalization History Reason Date(Month/[facility]) [facility] 08[facility]23 [facility] for a-fib 10/23/19 12
--- OUTSIDE RECORDS SUMMARY | 2024-07-13 09:12 | XMS_ITS | Patient Health Record ---
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
== END ==
LOC: HO.CARD 08:43
PROVIDERS: Visit Provider Internal Medicine
DX: I48.19 Other persistent atrial fibrillation (principal)
CPT/HCPCS: 93242

== ENCOUNTER → 2024-07-13 08:46 | Outpatient (BNV) | payer MEDICARE, SELFPAY | PROVIDERS: Visit Provider Internal Medicine Cardiovascular Disease | DX: I48.91 Unspecified atrial fibrillation (principal) | CPT/HCPCS: 93244 ==

== ENCOUNTER 2024-08-06 08:02 | Outpatient (AMB) | payer MEDICARE, SELFPAY ==
--- OUTSIDE RECORDS SUMMARY | 2024-08-06 08:04 | XMS_ITS ---
Author Organization [facility] Address [address] [place] [address] Care Team Providers Care Clinical Research Analyst Name Role Phone Darien Bruner MD Primary Care Provider Unavaila Ronel Reaves Unavailable [phone] Encounters Encounter Location Date Provider Diagnosis [address] [address] 07/29/2024 Ronel Leon Plan Of Treatment Next Appt Details Provider Name:Ronel eLon , 10/28/2024 09:15:00 AM, [address] [place], [address], Progress Notes * Leonardo GRIFFINDOB:1950 (74 yo M)Acc No.[id number]:07/29/2024 Progress Note Patient:?Leonardo GRIFFIN Provider:?Ronel Leon DPM :1950???Age:74 Y???Sex:Male En e:07/29/2024 Address:[address] [place] [address] [id number] Pcp:Darien Bruner MD Subjective: * Chief Complaints: * ??? * Medical History:? Objective: * Vitals:? Assessment: Plan: * Treatment: * Images: * The named appointment provid er may or may not be the originator of this progress note, and it is not deemed complete until electronically signed by the appointment provider. Sign off status: Pending * Provider:?Ronel Leon DPM Date:?2024 Generated for René temple/Melissa/Patel on:?08/06/2024 08:04 AM EDT
--- NOTE | 2024-08-06 08:21 | MHC.OFFVISCO ---
Intake Intake Visit Reasons: Anticoagulation Allergies Penicillins [PENICILLINS] Allergy (Intermediate, Verified 08/06/24 08:12) rash- STATES BAD RXN CHILD Medication List - Last Reconciled 08/06/24 by Sayra Adorno RN blood sugar diagnostic As directed carvedilol 12.5 mg PO DAILY cholecalciferol (vitamin D3) 50 mcg PO DAILY@1600 ferrous sulfate (iron) 325 mg PO DAILY furosemide 80 mg PO MOWEFR@0900 glipizide ER 10 mg PO BID metformin ER 500 mg PO TID metolazone 2.5 mg PO SA@0900 [id number] 1 tab PO DAILY naloxone 4 mg/actuation (Narcan) 4 mg intranasal Q2M oxycodone-acetaminophen 5-325 mg 1 tab PO 5XD PRN 30 days pravastatin 80 mg PO BEDTIME tamsulosin 0.4 mg PO DAILY@1700 tizanidine 2 mg PO BEDTIME warfarin 4 mg See Protocol PO DAILY warfarin 6 mg See Protocol PO DAILY@1800 Nursing Note INR: 2.1 in therapeutic range Medications and supplements reviewed * being treated for foot ulcer - eating more protein and more vit c foods - enc blueberries also for wound healing Denies any signs and symptoms of bleeding or bruising or clotting. Bleeding, bruising, clotting discussed Nutritional guidance given Dose:6mg daily F/U INR: 1 month Patient verbalizes understanding of instructions given Anti-Coag Initial Assessment Social Hx Patient Tobacco Use Status: Former Tobacco user Tobacco use type: Cigarette alcohol intake: former Alcohol intake frequency: does not drink Coding Level of Care Code Est Patient Level 1 Diagnoses Current use of anticoagulant therapy Z79.01 Results AMB INR Fingerstick AMB INR Fingerstick 2.1 Last Edit by Sayra Adorno RN on 08/06/24 08:19 Assessment & Plan Assessment & Plan (1) Current use of anticoagulant therapy: Code(s): Z79.01 - FPC (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
[2024-08-06 08:23] LABS: Prothrombin Time Whole Bld POC 25.3 sec (11.1-13.5); ~PT, ~INR - Anti Coag Clinic 2.1 (0.9-1.1)
== END 2024-08-06 08:24 | disposition home or self-care (01) ==
LOC: HO.ACS 08:02
PROVIDERS: PCP Internal Medicine; Visit Provider Internal Medicine Medical Oncology
DX: Z79.01 Long term (current) use of anticoagulants (principal)

== ENCOUNTER → 2024-08-06 08:02 | Outpatient (BNVA) | payer MEDICARE, SELFPAY | PROVIDERS: PCP Internal Medicine; Visit Provider Internal Medicine Medical Oncology | DX: I48.20 Chronic atrial fibrillation, unspecified (principal); Z79.01 Long term (current) use of anticoagulants; Z51.81 Encounter for therapeutic drug level monitoring | CPT/HCPCS: 85610; 99211 ==

== ENCOUNTER 2024-08-09 10:25 | Outpatient (AMB) | payer MEDICARE, SELFPAY ==
[2024-08-09 10:31] VITALS: BP 122/68; PULSE 78; BMI 38.2
--- NOTE | 2024-08-09 10:31 | MHC.OFFVIS ---
Vital Signs 08/09/24 10:31 Height 5 ft 8 in Weight 251 lb 5.231 oz BMI 38.2 BP 122/68 Blood Pressure Location Lt brachial Position Sitting Pulse 78 Pulse Source Pulse Oximeter Intake Visit Reasons: 6m s/p holter Allergies Penicillins [PENICILLINS] Allergy (Intermediate, Verified 08/06/24 08:12) rash- STATES BAD RXN CHILD Medication List - Last Reconciled 08/09/24 by Camacho Kirkland MD blood sugar diagnostic As directed carvedilol 12.5 mg PO DAILY cholecalciferol (vitamin D3) 50 mcg PO DAILY@1600 ferrous sulfate (iron) 325 mg PO DAILY furosemide 80 mg PO MOWEFR@0900 glipizide ER 10 mg PO BID metformin ER 500 mg PO TID metolazone 2.5 mg PO SA@0900 eetnjyaoltfm-bmpndbvs-igncfz 1 tab PO DAILY naloxone 4 mg/actuation (Narcan) 4 mg intranasal Q2M oxycodone-acetaminophen 5-325 mg 1 tab PO 5XD PRN 30 days pravastatin 80 mg PO BEDTIME tamsulosin 0.4 mg PO DAILY@1700 tizanidine 2 mg PO BEDTIME warfarin 6 mg See Protocol PO DAILY@1800 HPI Comments Details: Leonardo returns for follow-up regarding various cardiac issues. He has a history of chronic atrial fibrillation treated by rate control. He also has chronic right-sided heart failure. Per patient, he has sleep apnea and had CPAP mask more than a decade ago but has not used a long time as it is very inconvenient. Recently, he has completed an extensive workup including echocardiogram, stress test Holter as well as cardiac catheterization. Since last seen, he is just about the same as before. No new concerns. [facility] Medical History (Updated 06/30/24 @ 10:50 by Young Bunn MD) Chronic pain syndrome Diabetic foot ulcer MSSA bacteremia Foot ulcer, right Ambulates with cane Cochlear implant in place Type 2 diabetes mellitus with unspecified complications Essential hypertension Persistent atrial fibrillation Osteoarthritis of left knee Deafness in left ear JUDIE (obstructive sleep apnea) Osteoarthritis Anemia Venous stasis Hard of hearing Obesity GERD (gastroesophageal reflux disease) BPH (benign prostatic hyperplasia) Diabetes Peripheral edema Atrial fibrillation COPD (chronic obstructive pulmonary disease) Chronic a-fib Surgical History History of umbilical hernia repair (12/11/24) Hx of total knee arthroplasty History of amputation of toe Hx of total shoulder replacement Hx of colonoscopy (~11/01/22) History of bilateral hip replacements Uses cochlear implant Family History Father No problems noted. 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 Cognitive needs: No Hearing needs: Yes (left ear) Vision needs: Yes (reading glasses) Review of Systems Const Denies weakness ENT Denies dizziness Card Denies chest pain, Denies chest pain with activity, Denies syncope, Denies rapid heart rate, Denies pedal edema, Denies edema, Denies leg edema, Denies lightheadedness, Denies palpitations, Denies dyspnea, Denies dyspnea on exertion and Denies orthopnea Resp Denies cough, Denies dyspnea and Denies dyspnea on exertion GI Denies hematochezia and Denies change in stool character Musc Denies abnormal gait, Denies muscle cramps, Denies muscle weakness, Denies numbness, Denies radiating pain into limb and Denies tingling Neuro Denies abnormal gait, Denies dizziness, Denies syncope, Denies numbness, Denies tingling and Denies weakness Endo Denies palpitations Physical Exam Vital Signs: Last Vital Signs Pulse 78 08/09/24 10:31 BP 122/68 08/09/24 10:31 BMI result Body Mass Index 38.2 Const General: comfortable and no acute distress Orientation/consciousness: patient oriented x3 HEENT Other: Unremarkable Head: Yes normal to inspection Neck Neck: Yes normal visual inspection Chest Chest palpation & inspection: normal inspection of the chest Resp Auscultation: clear to auscultation bilaterally Cardio Palpation: normal PMI Heart sounds: S1 normal heart sound present, S2 normal heart sound present, no gallops, no murmurs and no rubs GI Palpation (GI): Soft to palpation Back/Spine/Pelvis Other: unremarkable Skin General skin exam: no rashes or lesions noted Neuro General: patient oriented x3 Extrem Other: Mild bilateral swelling. Psych Mental Status: mental status grossly normal Assessment & Plan Assessment & Plan (1) Chronic right heart failure: Code(s): I50.812 - Chronic right heart failure Category: Medical Plan: He is stable on a combination of Lasix/metolazone. Last creatinine is 0.98. Potassium 4.7. He will need to get periodic labs. (2) Persistent atrial fibrillation: Code(s): I48.19 - Other persistent atrial fibrillation Category: Medical Plan: In the recent Holter, underlying atrial fibrillation with an average rate of 73/Min. Pauses noted but nothing significant. Remains on Coreg. Off diltiazem/digoxin. On warfarin. (3) Essential hypertension: Code(s): I10 - Essential (primary) hypertension Category: Medical Plan: Stable. No changes. (4) Type 2 diabetes mellitus with unspecified complications: Code(s): E11.8 - Type 2 diabetes mellitus with unspecified complications Category: Medical Plan: On glipizide and metformin. Was also on insulin but not anymore. We discussed about Jardiance but he wants to leave things unchanged. (5) JUDIE (obstructive sleep apnea): Code(s): G47.33 - Obstructive sleep apnea (adult) (pediatric) Category: Medical Plan: Prior sleep study had shown moderately severe obstructive sleep apnea-2016. He does not use CPAP and this has been discussed numerous times. (6) Abnormal myocardial perfusion study: Code(s): R94.39 - Abnormal result of other cardiovascular function study Category: Medical Plan: In the stress test, description of mid/distal anterior wall ischemia. However, cardiac catheterization shows minimal irregularities in the LAD but otherwise normal coronary arteries. Normal LVEDP. Coding Level of Care Code Est Pt Level 4 (87790) Complex EM visit Add On G2211 Diagnoses Chronic right heart failure I50.812 Persistent atrial fibrillation I48.19 Essential hypertension I10 Type 2 diabetes mellitus with unspecified complications E11.8 JUDIE (obstructive sleep apnea) G47.33 Abnormal myocardial perfusion study R94.39
--- OUTSIDE RECORDS SUMMARY | 2024-08-09 11:27 | XMS_ITS ---
Author Organization [facility] Address [address] [place] [address] Care Team Providers Care Chief Embalmer Name Role Phone Darien Bruner MD Primary Care Provider Unavaila Ronel Reaves Unavailable [phone] Encounters Encounter Location Date Provider Diagnosis [address] [address] 07/29/2024 Ronel Leon Plan Of Treatment Next Appt Details Provider Name:Ronel Leon , 10/28/2024 09:15:00 AM, [address] [place], [address], Progress Notes * Leonardo GRIFFINDOB:1950 (74 yo M)Acc No.[id number]:07/29/2024 Progress Note Patient:?Leonardo GRIFFIN Provider:?Ronel Leon DPM :1950???Age:74 Y???Sex:Male En e:07/29/2024 Address:[address] [place] [address] [place], [id number] Pcp:Darien Bruner MD Subjective: * Chief Complaints: [...] Leon DPM Date:?2024 Generated for René temple/Melissa/Patel on:?08/09/2024 11:26 AM EDT
== END 2024-08-09 11:15 | disposition home or self-care (01) ==
PROVIDERS: PCP Internal Medicine; Visit Provider Internal Medicine
DX: I50.812 Chronic right heart failure (principal); I48.19 Other persistent atrial fibrillation; I10 Essential (primary) hypertension; E11.8 Type 2 diabetes mellitus with unspecified complications; G47.33 Obstructive sleep apnea (adult) (pediatric); R94.39 Abnormal result of other cardiovascular function study
CPT/HCPCS: 99214; G2211

== ENCOUNTER → 2024-08-09 10:25 | Outpatient (BNVA) | payer MEDICARE, SELFPAY | PROVIDERS: PCP Internal Medicine; Visit Provider Internal Medicine | DX: I11.0 Hypertensive heart disease with heart failure (principal); I50.812 Chronic right heart failure; I48.19 Other persistent atrial fibrillation; E11.8 Type 2 diabetes mellitus with unspecified complications; G47.33 Obstructive sleep apnea (adult) (pediatric); R94.39 Abnormal result of other cardiovascular function study | CPT/HCPCS: 99212 ==

== ENCOUNTER 2024-09-03 07:51 | Outpatient (AMB) | payer MEDICARE, SELFPAY ==
--- OUTSIDE RECORDS SUMMARY | 2024-07-29 05:00 | XMS_ITS ---
Author Organization [facility] Address [address] [place] [phone] Care Team Providers Care Elevated Guard Name Role Phone Darien Bruner MD Primary Care Provider Unavailrhiannon Leon Ronel Unavailable [phone] Encounters Encounter Location Date Provider Diagnosis [address] [address] 07/29/2024 Ronel Leon Plan Of Treatment Next Appt Details Provider Name:Ronel Leon , 10/28/2024 09:15:00 AM, [address] [place], [address], Progress Notes * Leonardo GRIFFINDOB:1950 (74 yo M)Acc No.[id number]:07/29/2024 Progress Note Patient: Holli HERNANDEZ Leonardo Wyatt Provider: Rashard Leon DPM :1950 A ge:74 Y S ex:Male Date:07/29/2024 Address:[address] [place] [phone] Pcp:Darien Bruner MD Subjective: * Chief Complaints: * * Medical [...] 07/29/2024 Generated for René temple/Melissa/Patel on: 0 09/03/2024 07:55 AM EDT
--- NOTE | 2024-09-03 08:02 | MHC.OFFVISCO ---
Intake Intake Visit Reasons: Anticoagulation Allergies Penicillins (PENICILLINS) Allergy (Intermediate, Verified 08/06/24 08:12) rash- STATES BAD RXN CHILD Nursing Note INR: 2.1 in therapeutic range Medications and supplements reviewed No changes in diet, medications, or supplements, goes to wound clinic right foot bottom Denies any signs and symptoms of bleeding or bruising or clotting. Bleeding, bruising, clotting discussed Nutritional guidance given Dose:6mg daily F/U INR: 1 month Patient verbalizes understanding of instructions given Anti-Coag Initial Assessment Social Hx Patient Tobacco Use Status: Former Tobacco user Tobacco use type: Cigarette alcohol intake: former Alcohol intake frequency: does not drink Coding Level of Care Code Est Patient Level 1 Diagnoses Current use of anticoagulant therapy Z79.01 Results AMB INR Fingerstick AMB INR Fingerstick 2.1 Last Edit by Sayra Adorno RN on 09/03/24 08:03 manual entry Assessment & Plan Assessment & Plan (1) Current use of anticoagulant therapy: Code(s): 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
[2024-09-03 08:26] LABS: Prothrombin Time Whole Bld POC 25.2 sec (11.1-13.5); ~PT, ~INR - Anti Coag Clinic 2.1 (0.9-1.1)
== END 2024-09-03 08:06 | disposition home or self-care (01) ==
LOC: HO.ACS 07:51
PROVIDERS: PCP Internal Medicine; Visit Provider Internal Medicine Medical Oncology
DX: Z79.01 Long term (current) use of anticoagulants (principal)

== ENCOUNTER → 2024-09-03 07:51 | Outpatient (BNVA) | payer MEDICARE, SELFPAY | PROVIDERS: PCP Internal Medicine; Visit Provider Internal Medicine Medical Oncology | DX: I48.20 Chronic atrial fibrillation, unspecified (principal); Z79.01 Long term (current) use of anticoagulants; Z51.81 Encounter for therapeutic drug level monitoring | CPT/HCPCS: 85610; 99211 ==

== ENCOUNTER 2024-09-29 10:38 | Outpatient (AMB) | payer MEDICARE, SELFPAY ==
--- OUTSIDE RECORDS SUMMARY | 2024-07-29 05:00 | XMS_ITS ---
Author Organization [facility] Address [address] [place] [address] Care Team Providers Care Director Pharmaceutical Name Role Phone Darien Bruner MD Primary Care Provider Unavailrhiannon Leon Ronel Unavailable [phone] Encounters Encounter Location Date Provider Diagnosis [address] [address] 07/29/2024 Ronel Leon Plan Of Treatment Next Appt Details Provider Name:Ronel Leon , 10/28/2024 09:15:00 AM, [address] [place], [address], Progress Notes * Leonardo GRIFFINDOB:1950 (74 yo M)Acc No.[id number]:07/29/2024 Progress Note Patient: Holli HERNANDEZ Leonardo Wyatt Provider: Rashard Leon DPM :1950 A ge:74 Y S ex:Male Date:07/29/2024 Address:[address] [place] [phone] Pcp:Darien Bruner MD Subjective: * Chief Complaints: [...] 07/29/2024 Generated for René temple/Melissa/Patel on: 0 09/29/2024 11:39 AM EDT
[2024-09-29 08:47] VITALS: BP 112/66; PULSE 86; TEMP 37.1; O2SAT 97; BMI 39.5
--- NOTE | 2024-09-29 08:47 | A.OFFPC_ITS ---
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 Accompanied by: Self / Same As Patient Allergies Penicillins (PENICILLINS) Allergy (Intermediate, Verified 09/29/24 08:47) rash- STATES BAD RXN CHILD Tobacco use date assessed: 09/29/24 Fall risk assessment: No Falls in past year Dental Screening Dental Screen Date: 09/29/24 Did you have a dental visit in the last 12 months?: Yes Did you have a dental problem in the last 6 months where you did not have access to dental care?: No PFSH Medical History Chronic pain syndrome Diabetic foot ulcer MSSA bacteremia Foot ulcer, right Ambulates with cane Cochlear implant in place Type 2 diabetes mellitus with unspecified complications Essential hypertension Persistent atrial fibrillation Osteoarthritis of left knee Deafness in left ear JUDIE (obstructive sleep apnea) Osteoarthritis Anemia Venous stasis Hard of hearing Obesity GERD (gastroesophageal reflux disease) BPH (benign prostatic hyperplasia) Diabetes Peripheral edema Atrial fibrillation COPD (chronic obstructive pulmonary disease) Chronic a-fib Surgical History History of umbilical hernia repair (02/18/24) Hx of total knee arthroplasty History of amputation of toe Hx of total shoulder replacement Hx of colonoscopy (~11/01/22) History of bilateral hip replacements Uses cochlear implant Family History Father No problems noted. 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 1. Little interest or pleasure in doing things: not at all 2. Feeling down, depressed, or hopeless: not at all 3. Trouble falling or staying asleep, or sleeping too much: not at all 4. Feeling tired or having little energy: not at all 5. Poor appetite or overeating: not at all 6. Feeling bad about yourself - or that you are a failure or have let yourself or your family down: not at all 7. Trouble concentrating on things, such as reading the newspaper or watching television: not at all 8. Moving or speaking so slowly that other people could have noticed. Or the opposite - being so fidgety or restless that you have been moving around a lot more than usual: not at all 9. Thoughts that you would be better off or of hurting yourself in some way: not at all Total score: 0 Source: Developed by Drs. Jose Antonio Ferris, Quita Ceballos, Thierry Beckham and colleagues, with an educational nela from [employer]. Thrive Questionnaire Date Thrive assessed: 09/29/24 I am a: Patient Within the past 12 months, did the food you bought not last and you didn't have the money to get more?: Never true Within the past 12 months, did you worry whether your food would run out before you got money to buy more?: Never true Do you have trouble paying for medicines?: No Do you have trouble getting transportation to medical appointments?: No Do you have trouble paying your heating and electricity bill?: No Do you have trouble taking care of your child, family member or friend?: No Do you have trouble with day-to-day activities such as bathing, preparing meals, shopping, managing finances, etc.?: No Are you currently unemployed and looking for a job?: No Are you interested in more education?: No THRIVE Score: 0 AUDIT C Alcohol Use Questionnaire (AUDIT-C) 1. How often do you have a drink containing alcohol?: Never 3. How often do you have six or more drinks on one occasion?: Never Total Score: 0 BRITTNEY-7 AMB Questionnaire BRITTNEY-7 Date BRITTNEY - 7 assessed: 09/29/24 Feeling nervous, anxious, or on edge: 0 = Not at all Not being able to stop or control worryin = Not at all Worrying too much about different things: 0 = Not at all Trouble relaxin = Not at all Being so restless that it is hard to sit still: 0 = Not at all Becoming easily annoyed or irritable: 0 = Not at all Feeling afraid as if something awful might happen: 0 = Not at all Total BRITTNEY-7 score (0-4 normal; 5-9 mild; 10-14 moderate; 15-21 severe): 0 Source: Developed by Drs. Jose Antonio Ferris, Quita Ceballos, Thierry Beckham and colleagues, with an educational nela from [employer]. Physical exam (Primary Care) Vital Signs: Last Vital Signs Temp 98.7 F 09/29/24 08:47 Pulse 86 09/29/24 08:47 BP 112/66 09/29/24 08:47 Pulse Ox 97 09/29/24 08:47 Oxygen Delivery Method Room Air 09/29/24 08:47 Oxygen Flow Rate 86 09/29/24 08:47 BMI result Body Mass Index 39.5 Tobacco/Smoking Status: Tobacco use Status Tobacco use date assessed 09/29/24 09/29/24 08:52 Patient Tobacco Use Status Former Tobacco user 09/29/24 08:52 Tobacco use type Cigarette 09/29/24 08:52 e-Cigarette/Vaping Use Never Used 09/29/24 08:52 PHQ-9: PHQ-9 Score PHQ-9: Total score 0 09/29/24 11:04 Thrive Assessment: Date of Thrive Assessment Date Thrive assessed 09/29/24 09/29/24 08:52 Coding Level of Care Code Est Pt Level 4 (96855) Complex EM visit Add On G2211 Diagnoses Chronic right heart failure I50.812 Assessment & Plan Assessment & Plan (1) Chronic right heart failure: Code(s): I50.812 - Chronic right heart failure Category: Medical Plan: History of Present Illness - The patient is a 74-year-old male presenting with a routine three-month check- up and questions regarding PSA screening and chronic pain management. - Peripheral neuropathy: Reports worsening hand function, r, and inquired about NuVive for nerve regeneration. - Chronic pain management: Long-term oxycodone use at five pills per day, with concerns about reducing to four pills per day. - Deviated nasal septum: Chronic nasal blockage with history of septal surgery, current swelling in the turbinate observed. - Preventative care: Considering PSA screening due to family history of prostate cancer, advised to proceed with the test. Social History - The patient reports functional limitations due to worsening hand function, impacting his ability to eat without assistance. Review of Systems - Neurological: Reports worsening hand function, requiring utensils to eat. - Respiratory: Reports chronic nasal blockage, denies productive nasal discharge. Physical Exam General: Cooperative and healthy appearing Nutritional Appearance: Well nourished Orientation/consciousness: Patient oriented x3 Limitations: No limitations Head: Normal to inspection General: Appearance normal, both eyes and all related structures Neck: Normal visual inspection Chest: Normal palpation of entire chest wall Respiratory: Turbinate is swollen, possible deviated septum. ormal respiratory effort Neurology: Patient oriented x3, reports worsening hand function, difficulty eating without assistance. Results Plan 1. Chronic Pain Management - Discussed reducing oxycodone dosage from five to four pills per day to manage chronic pain safely. 2. Deviated Nasal Septum - Referral to ENT for evaluation of nasal blockage and possible intervention for deviated septum. 3. Preventative Care: Psa Screening - Advised to proceed with PSA screening due to family history of prostate cancer. Discussion Notes During the visit, we discussed the patient's chronic pain management, emphasizing the importance of reducing oxycodone dosage from five to four pills per day to ensure safety and efficacy. We also addressed the patient's interest in PSA screening due to a family history of prostate cancer, advising him to proceed with the test. Additionally, we considered a referral to ENT for evaluation of nasal blockage and possible intervention for a deviated septum. The patient was informed about the potential need for neurology consultation for peripheral neuropathy management. Patient Instructions - Reduce oxycodone dosage from five to four pills per day as discussed. - Proceed with PSA screening as advised. - Follow up with ENT for nasal blockage evaluation. - Consider neurology consultation for peripheral neuropathy management. Orders: Orders Liver Panel Today I50.812 - Chronic right heart failure Thyroid Stimulating Hormone Today I50.812 - Chronic right heart failure Complete Blood Count no Diff Today I50.812 - Chronic right heart failure Basic Metabolic Panel Today I50.812 - Chronic right heart failure Lipid Panel Today I50.812 - Chronic right heart failure UA and rflx microscopic Today I50.812 - Chronic right heart failure PSA,Total (Free>4and<10) Today I50.812 - Chronic right heart failure
--- OUTSIDE RECORDS SUMMARY | 2024-09-29 11:40 | XMS_ITS ---
Author Name [facility] Organization Unknown History of Medication Use Medication Directions Dispensed Refills Start Date End Date Stat us SUPPLY DME MISC RT ANKLE / Foot TLINGIT & HAIDA Boot Dx: Diabetic Neuropathy, RT Plantar foot Ulcer 02/10/2024 active Allergies Allergen Reaction Severity Comment Documented Date Source Statu s PENICILLINS UNKNOWN/PATIENT AND FAMILY UNABLE TO DEFINE 02/10/2024 [facility] active Problems Problem Status Onset Date Problem Type Date of Resoluti on Source Pain in left ankle and joints of left foot active EncounterDiagnosisAct [facility] Pain in right ankle and joints of right foot active EncounterDiagnosisAct [facility] Encounters Encounter Type Encounter Reason Primary Diagnosis Location Date Ambulatory [facility] 02/10/2024 Ambulatory Pain in left ankle and joints of left foot Pain in left ankle and joints of left foot [employer] [facility] 02/10/2024 Care Team Organization Name Specialty Phone Email Start Date End Da [facility] 02/13/2024 05/27/19 [facility] [employer] [facility] 01/19/2024
--- OUTSIDE RECORDS SUMMARY | 2024-09-29 11:40 | XMS_ITS | Patient Health Record ---
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
--- OUTSIDE RECORDS SUMMARY | 2024-09-29 11:40 | XMS_ITS | Data Portability ---
Author Organization [facility] Address [address] [place] [id number] Care Team Providers Care Desolderer Name Role Phone EMMA THOMAS Primary Care [...] Name and Address Organization Details Recorded Time Sensorine ural hearing loss of bilateral ears 024381276 Active 2013 SNHL Bilaterall y; CMS Risk: low risk Note: Date Diagnosed: 12/10/2013 9:18 AM (389.18) Not Available [facility] 4 02:31:47 Bilateral sensory hearing loss 008489621 Active 2013 Hearing loss: Sensory hearing loss, bilateral; Location: left Note: Date Diagnosed: 12/16/2013 11:26 AM (389.11) Not Available [facility] 4 02:31:45 Postopera tive follow-up visit Active 2013 Post op; Note: Date Diagnosed: 12/16/2013 11:26 AM (V67.00) Not Available [facility] 4 02:31:42 Allergic rhinitis caused by pollen 14062659 Active 2013 Vasomotor rhinitis; Note: Date Diagnosed: 01/10/2014 2:23 PM (477.0) Not Available [facility] 4 02:31:46 Gastroeso phageal reflux disease without esophagit is 587581676 Active 2014 Gastro-eso phageal reflux disease without esophagiti s; Note: Date Diagnosed: 01/16/2015 10:07 AM (K21.9) Not Available [facility] 4 02:31:43 Deviated nasal septum 463790160 Active 2014 Septal Deviation; Note: Date Diagnosed: 08/05/2014 11:13 AM (470) ; Start Date : 08/05/2014 Deviated nasal septum; Note: Date Diagnosed: 01/16/2015 9:52 AM (J34.2) Not Available [facility] 4 02:31:48 Hypertrop hy of nasal turbinate s 61987095 Active 2014 Nasal turbinate hypertroph y; Note: Date Diagnosed: 02/16/2014 12:31 PM (478.0) ; Start Date : 02/16/2014 Hypertrop hy of nasal turbinates ; Note: Date Diagnosed: 01/16/2015 9:52 AM (J34.3) Not Available [facility] 4 02:31:37 Obstructi ve sleep apnea syndrome 67652394 Active 2015 Obstructiv e sleep apnea (adult) (pediatric ); Note: Date Diagnosed: 05/04/2015 4:55 PM (G47.33) Not Available [facility] 4 02:31:48 Simple obesity 664452850 Active 2016 Other obesity due to excess calories; Note: Date Diagnosed: 10/09/2016 1:21 PM (E66.09) Not Available [facility] 4 02:31:33 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 Medical Equipment None Reported. Allergies Allergen ID Allergen Name Allergen Category Reaction Reaction Severity Criticality Documentation Date Start Date Code Code System Note Provider Name and Address Organization Details Recorded Time 27444 Product containin g penicilli n (product) medicatio n other Not available Not available 07/22/2023 90066 8001 SNOMED React ion: Unkno wn; Not Available [facility] 4 00:23:22 Medications Name Sig Start Date Stop Date Status Note LastModified by Organization Details LastModified Time furosemid e 40 mg tablet active Medicati on ID: [id number] B rand Name: furosemi de Send Method: E-Prescr ibed Sub s Allowed: subs OK Medic ationGen ericName : furosemi de Not Available Not Available Not Available metolazon e 2.5 mg tablet active Not Available Not Available Not Available metformin 500 mg tablet 05/11 completed Medicati on ID: [id number] Br and Name: metformi n Send Method: [...] ous solution 05/11 completed Medicati on ID: [id number] D uration Value: 28 Brand Name: Lantus U-100 Insulin Send Method: E-Prescr ibed Sub s Allowed: subs OK Speci al Instruct ion: INJECT 10 UNITS SUBCUTAN EOUSLY AT BEDTIME DISCAR D VIAL AFTER 28 DAYS Medic ationGen ericName : Lantus U-100 Insulin Not Available Not Available Not Available digoxin 250 mcg (0.25 mg) tablet 05/11 completed Medicati on ID: [id number] Br and Name: digoxin Send Method: E-Prescr ibed Sub s Allowed: subs OK Medic ationGen ericName : digoxin Not Available Not Available Not Available omeprazol e 40 mg capsule,d elayed release active Medicati on ID: [id number] B rand Name: omeprazo le Send Method: E-Prescr ibed Sub s Allowed: subs OK Medic ationGen ericName : omeprazo le Not Available Not Available Not Available tramadol 50 mg tablet 05/11 completed Medicati on ID: [id number] Br and Name: tramadol Send Method: E-Prescr ibed Sub s Allowed: subs OK Medic ationGen ericName : tramadol Not Available Not Available Not Available warfarin 4 mg tablet active Not Available Not Available Not Available Nexium 20 mg capsule,d elayed release 1 capsule by mouth once a day 05/11 completed Medicati on ID: [id number] Br and Name: Nexium S end Method: [...] 0.4 mg capsule active Medicati on ID: [id number] B rand Name: tamsulos in Send Method: E-Prescr ibed Sub s Allowed: subs OK Medic ationGen ericName : tamsulos in Not Available Not Available Not Available glipizide ER 2.5 mg tablet, extended release 24 hr 05/11 completed Medicati on ID: [id number] Br and Name: glipizid e Send Method: E-Prescr ibed Sub s Allowed: subs OK Medic ationGen ericName : glipizid e Not Available Not Available Not Available warfarin 2 mg tablet active Medicati on ID: [id number] B rand Name: warfarin Send Method: E-Prescr ibed Sub s Allowed: subs OK Medic ationGen ericName : warfarin Not Available Not Available Not Available fluticaso ne propionat e 50 mcg/actua tion nasal spray,andres pension 05/11 completed Medicati on ID: [id number] D uration Value: 30 Brand Name: fluticas one propiona te Send Method: E-Prescr ibed Sub s Allowed: subs OK Speci al Instruct ion: USE 1 SPRAY IN EACH NOSTRIL TWICE A DAY Medi cationGe nericNam e: fluticas one propiona te Not Available Not Available Not Available metformin ER 500 mg tablet,ex tended release 24 hr active Medicati on ID: [id number] B rand Name: metformi n Send Method: E-Prescr ibed Sub s Allowed: subs OK Medic ationGen ericName : metformi n Not Available Not Available Not Available ipratropi um bromide 21 mcg (0.03 %) nasal spray Inhale 2 spray into both nostrils three times a day as directed 05/11 completed Medicati on ID: [id number] Br and Name: Atrovent Send Method: E-Prescr ibed Sub s Allowed: [...] mcg tablet 05/11 completed Medicati on ID: [id number] Br and Name: Centrum Silver Ultra Men's Se nd Method: E-Prescr ibed Sub s Allowed: subs OK Medic ationGen ericName : Centrum Silver Ultra Men's Not Available Not Available Not Available Vitals Date Recorded Body height Body mass index (BMI) Body weight Provider Name and Address Organization Details Last Updated DateTime 08/14/2023 172.72 cm 38 kg/m2 092114.09 g Tevin Koch [facility] 08/14/2023 10:01:01 Social History None recorded. Functional Status None recorded. Mental Status None recorded. Family History Nothing Reported. Medical History No medical history recorded. Past Encounters Encounter ID Performer Location Encounter Start Date Encounter Closed Date Diagnosis/Indication Diagnosis SNOMED-CT Code Diagnosis ICD10 Code Diagnosis Note [id number] RAMYA ARNDT MD [facility] [address] [address] 08/14/2023 09:50:50 08/14/2023 10:16:30 Benign neoplasm of parotid gland 58042489 D11.0 Health Concerns Section Related Observation LastModified by Organization Detai ls LastModified Time None Recorded Concern Status LastModified by Organization Details LastModified Time None Recorded Advance Directives Directive None Recorded Payers Insurance Date Sequence Insurance Name Policy Number Policy Casarez Covered Member ID Casarez Member ID Guarantor Name 07/28/2023 2 [place] Leonardo Pang [id number] Leonardo Pang 08/14/2023 1 [place] [employer] Leonardo Pagn [id number] Leonardo Pang Notes Date Note Type Note Provider Name and Address Organization Details Recorded Time 08/14/2023 text/html left parotid FNA 05/17/21 - warthin tumorct neck w contrast at [place] 04/27/21left parotid 2.8cm mass. compare with prior [...] cochlear implant with Dr Demetrio ARNDT MD [address] [place] [address], [place], [address], [facility] 08/14/2023 10:15:11
--- OUTSIDE RECORDS SUMMARY | 2024-09-29 11:40 | XMS_ITS | Clinical Summary ---
Author Organization [facility] Address [address] [place], [place] [address] Phone Care Team Providers Care Leather Lacer Name Role Phone Darien Bruner MD Primary Care Provider Social History Tobacco Use Types Packs/Day Years Used Date Smoking Tobacco: Never Assessed Education Answer Date Recorded Are you interested in more education? Not on nikki e 07/06/2022 Are you concerned about learning? Not on file 07/06/2022 No 07/06/2022 No 07/06/2022 Digital Access Answer Date Recorded No 08/06/2022 No 08/06/2022 Reliable internet access at home? Not on file 08/06/2022 Device with a working camera? Not on file Sex and Gender Information Value Date Recorded Sex Assigned at Not on file Legal Sex Male 10:01 AM EDT Gender Identity Not on file Sexual Orientation Not on file Plan of Treatment Not on file Medical Devices [place] [address] MEDICARE PART [place] [id number] [facility] MEDEX SUPPLEMENT [facility] [place] [address] MEDICARE PART A & B [facility] MEDEX [place] [address] MEDICARE PART A & B [employer] MEDEX SUPPLEMENT [place] [address] MEDICARE PART A & B [employer] MEDEX SUPPLEMENT V[place]io [place] [address] MEDICARE PART A & B [employer] MEDEX SUPPLEMENT [address] MEDICARE PART A & B [employer] [place] [address] MEDICARE PART A & B Member Subscriber Plan / Payer (Ef fective 2021-) Name:Leonardo Pang Member ID:[id number] Relation to Subscriber:Self Name:Leonardo Pang Subscriber ID:[id number] Payer ID:[id number] Group ID:Not on file Type:Medicare Address: [employer] [address] [employer] MEDEX SUPPLEMENT MEDICARE PART A & B [employer] MEDEX SUPPLEMENT MEDICARE PART A & B [employer]OSS MEDEX SUPPLEMENT Care Teams Leather Lacer Relationship Specialty Start Date End Date Darien Bruner MD [address] [place] [address] [place] [address] PCP - General Internal Medicine 05/31/21 Additional Source Comments The information contained in this document represents components of the legal health record. It is not the complete legal health record.[facility]
--- OUTSIDE RECORDS SUMMARY | 2024-09-29 11:40 | XMS_ITS | Clinical Summary ---
Author Organization [facility] Address [address] [place] [address] Care Team Providers Care Set Illustrator Name Role Phone Darien Bruner MD Primary Care Provider [phone] Allergies Active Allergy Reactions Criticality Noted Date Comments Penicillins Unknown/Patient and Family Unable to Define Medium 02/10/2024 Medications SUPPLY DME MISCIndications :Pain in right ankle and joints of right foot RT ANKLE / Foot POK[place]ON Boot Dx: Diabetic Neuropathy, RT Plantar foot [...] - Risk 60-74 years 1-dose series) 2012 COVID-19 Vaccine (3 - 2023-2 5 season) 2023 06/08/2020, 05/18/2020 Influenza Vaccine 10/08/2024 Hepatitis B Vaccines Aged Out No long er eligible based on patient's age to complete this topic Insurance MEDICARE PART A & B [place] [id number] Care Teams Set Illustrator Relationship Specialty Start Date End Date Darien Bruner MD [address] [place] [address] [place] [address] PCP - General 01/19/24
== END 2024-09-29 11:45 | disposition home or self-care (01) ==
LOC: HO.HMCHD 10:38
PROVIDERS: PCP Internal Medicine; Visit Provider Internal Medicine
DX: I50.812 Chronic right heart failure (principal)

== ENCOUNTER → 2024-09-29 10:38 | Outpatient (BNVA) | payer MEDICARE, SELFPAY | PROVIDERS: PCP Internal Medicine; Visit Provider Internal Medicine | DX: I50.812 Chronic right heart failure (principal) | CPT/HCPCS: 99212 ==

== ENCOUNTER 2024-09-29 12:11 | Outpatient (REF) | payer MEDICARE, SELFPAY ==
[2024-09-29 13:07] LABS: Hematocrit 38.1 % (42.0-52.0); Hemoglobin 12.8 g/dl (14.0-18.0); Mean Corpuscular HGB Conc 33.6 g/dl (31.0-36.0); Mean Corpuscular Hemoglobin 31.8 pg (27.0-33.0); Mean Corpuscular Volume 94.8 fL (80.0-98.0); NRBC Abs Auto 0.000 X10*3/uL (0.0-0.012); NRBC Pct Auto 0.0 /100WBC (0.0-0.2); Platelet Count 173 X10*3/uL (160-400); Red Blood Count 4.02 X10*6/uL (4.60-5.80); White Blood Count 7.8 X10*3/uL (4.8-10.8)
[2024-09-29 13:35] LABS: Alanine Aminotransferase 22 U/L (0-40); Albumin Level 4.4 g/dL (3.5-5.0); Alkaline Phosphatase 65 U/L (39-117); Anion Gap 11 (12-20); Aspartate Amino Transferase 28 U/L (5-37); Blood Urea Nitrogen 27 mg/dL (9-16); Calcium 9.3 mg/dL (8.4-10.2); Carbon Dioxide 29 mmol/L (22-29); Chloride 108 mmol/L (96-108); Cholesterol 142 mg/dL (<200); Estimated Glomerular Filt Rate > 60; HDL Cholesterol 41 mg/dL (>40); Potassium 4.6 mmol/L (3.3-5.1); Sodium 143 mmol/L (135-145); Total Protein 7.3 g/dL (6.5-8.0); Triglycerides 100 mg/dL (<150)
[2024-09-29 13:37] LABS: PSA,Total (Free>4and<10) 1.44 ng/mL (0.00-4.00)
[2024-09-29 13:52] LABS: Thyroid Stimulating Hormone 1.40 uIU/mL (0.32-4.0)
== END 2024-09-29 12:12 | disposition home or self-care (01) ==
LOC: HO.10HDL 12:11
PROVIDERS: Visit Provider Internal Medicine
DX: Z12.5 Encounter for screening for malignant neoplasm of prostate (principal); I50.812 Chronic right heart failure
CPT/HCPCS: 36415; 80048; 80061; 80076; 84153; 84443; 85027

== ENCOUNTER 2024-10-01 07:53 | Outpatient (AMB) | payer MEDICARE, SELFPAY ==
--- OUTSIDE RECORDS SUMMARY | 2024-07-29 05:00 | XMS_ITS ---
Author Organization [facility] Address [address] [place] [address] Care Team Providers Care Petroleum Blending Plant Operator Name Role Phone Darien Bruner MD Primary Care Provider Unavailrhiannon Leon Ronel Unavailable [phone] Encounters Encounter Location Date Provider Diagnosis [address] [address] 07/29/2024 Ronel Leon Plan Of Treatment Next Appt Details Provider Name:Ronel Leon , 10/28/2024 09:15:00 AM, [address] [place], [address], Progress Notes * Leonardo GRIFFINDOB:1950 (74 yo M)Acc No.[id number]:07/29/2024 Progress Note Patient: Holli HERNANDEZ Leonardo Wyatt Provider: Rashard Leon DPM :1950 A ge:74 Y S ex:Male Date:07/29/2024 Address:[address] [place] [phone] Pcp:Darien Bruner MD Subjective: * Chief Complaints: [...] 07/29/2024 Generated for René temple/Melissa/Patel on: 0 10/01/2024 07:55 AM EDT
--- OUTSIDE RECORDS SUMMARY | 2024-10-01 07:55 | XMS_ITS | Patient Health Record ---
Author Organization [facility] Address [address] [place] [address] Care Team Providers Care Armoring Machine Operator Name Role Phone Zohreh (RETIRED) Darien LI [...] Problem Status W/U Status Risk Notes Problem 969419764 Colon cancer screening (Z12.11) Active confirmed Problem 696860793 intermodal customer service (curre nt) use of anticoagulants (Z79.01) Active confirmed Problem 831570879 Personal history of colonic polyps (Z86.010) Active confirmed Problem 36724238 Encounter for ot her preprocedural examination (Z01.818) Active confirmed Problem 182877525 intermodal customer service (curre nt) use of insulin (Z79.4) Active [...] [place] [address] [place] [address] [id number] KAZ GRIFFIN Self - patient is the insured MEDEX ATTN CLAIMS [address] [place] [address] [phone] [id number] KAZ GRIFFIN Self - patient is the [...]
--- OUTSIDE RECORDS SUMMARY | 2024-10-01 07:55 | XMS_ITS | Data Portability ---
Author Organization [place] [facility] Address [address] [place] [address] Care Team Providers Care Fur Dry Cleaner Name Role Phone EMMA THOMAS Primary Care [...] Sensorine ural hearing loss of bilateral ears 129399021 Active 2013 SNHL Bilaterall y; CMS Risk: low risk Note: Date Diagnosed: 12/10/2013 9:18 AM (389.18) Not Available [facility] 4 02:31:47 Bilateral sensory hearing loss 862545282 Active 2013 Hearing loss: Sensory hearing loss, bilateral; Location: left Note: Date Diagnosed: 12/16/2013 11:26 AM (389.11) Not Available [facility] 4 02:31:45 Postopera tive follow-up visit Active 2013 Post op; Note: Date Diagnosed: 12/16/2013 11:26 AM (V67.00) Not Available [facility] 4 02:31:42 Allergic rhinitis caused by pollen 96527255 Active 2013 Vasomotor rhinitis; Note: Date Diagnosed: 01/10/2014 2:23 PM (477.0) Not Available [facility] 4 02:31:46 Gastroeso phageal reflux disease without esophagit is 307208018 Active 2014 Gastro-eso phageal reflux disease without esophagiti s; Note: Date Diagnosed: 01/16/2015 10:07 AM (K21.9) Not Available [facility] 4 02:31:43 Deviated nasal septum 717881296 Active 2014 Septal Deviation; Note: Date Diagnosed: 08/05/2014 11:13 AM (470) ; Start Date : 08/05/2014 Deviated nasal septum; Note: Date Diagnosed: 01/16/2015 9:52 AM (J34.2) Not Available [facility] 4 02:31:48 Hypertrop hy of nasal turbinate s 79239360 Active 2014 Nasal turbinate hypertroph y; Note: Date Diagnosed: 02/16/2014 12:31 PM (478.0) ; Start Date : 02/16/2014 Hypertrop hy of nasal turbinates ; Note: Date Diagnosed: 01/16/2015 9:52 AM (J34.3) Not Available [facility] 4 02:31:37 Obstructi ve sleep apnea syndrome 43149193 Active 2015 Obstructiv e sleep apnea (adult) (pediatric ); Note: Date Diagnosed: 05/04/2015 4:55 PM (G47.33) Not Available [facility] 4 02:31:48 Simple obesity 100881210 Active 2016 Other obesity due to excess calories; Note: Date Diagnosed: 10/09/2016 1:21 PM (E66.09) Not Available [facility] 4 02:31:33 Neoplasm of uncertain behavior of parotid gland 97348225 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 Medical Equipment None Reported. Allergies Allergen ID Allergen Name Allergen Category Reaction Reaction Severity Criticality Documentation Date Start Date Code Code System Note Provider Name and Address Organization Details Recorded Time 86773 Product containin g penicilli n (product) medicatio n other Not available Not available 07/22/2023 85727 8001 SNOMED React ion: Unkno wn; Not Available [facility] 4 00:23:22 Medications Name Sig Start Date Stop Date Status Note LastModified by Organization Details LastModified Time furosemid e 40 mg tablet active Medicati on ID: [id number] B rand Name: furosemi de Send Method: E-Prescr ibed Sub s Allowed: subs OK Medic ationGen ericName : furosemi de Not Available Not Available Not Available metolazon e 2.5 mg tablet active Not Available Not Available Not Available metformin 500 mg tablet 05/11 completed Medicati on ID: [id number] Br and Name: metformi n Send Method: [...] ous solution 05/11 completed Medicati on ID: [id number] D uration Value: 28 Brand Name: Lantus U-100 Insulin Send Method: E-Prescr ibed Sub s Allowed: subs OK Speci al Instruct ion: INJECT 10 UNITS SUBCUTAN EOUSLY AT BEDTIME DISCAR D VIAL AFTER 28 DAYS Medic ationGen ericName : Lantus U-100 Insulin Not Available Not Available Not Available digoxin 250 mcg (0.25 mg) tablet 05/11 completed Medicati on ID: 14716 Br and Name: digoxin Send Method: E-Prescr ibed Sub s Allowed: subs OK Medic ationGen ericName : digoxin Not Available Not Available Not Available omeprazol e 40 mg capsule,d elayed release active Medicati on ID: 858643 B rand Name: omeprazo le Send Method: E-Prescr ibed Sub s Allowed: subs OK Medic ationGen ericName : omeprazo le Not Available Not Available Not Available tramadol 50 mg tablet 05/11 completed Medicati on ID: [id number] Br and Name: tramadol Send Method: E-Prescr ibed Sub s Allowed: subs OK Medic ationGen ericName : tramadol Not Available Not Available Not Available warfarin 4 mg tablet active Not Available Not Available Not Available Nexium 20 mg capsule,d elayed release 1 capsule by mouth once a day 05/11 completed Medicati on ID: 36172 Br and Name: Nexium S end Method: [...] 0.4 mg capsule active Medicati on ID: 678711 B rand Name: tamsulos in Send Method: E-Prescr ibed Sub s Allowed: subs OK Medic ationGen ericName : tamsulos in Not Available Not Available Not Available glipizide ER 2.5 mg tablet, extended release 24 hr 05/11 completed Medicati on ID: [id number] Br and Name: glipizid e Send Method: E-Prescr ibed Sub s Allowed: subs OK Medic ationGen ericName : glipizid e Not Available Not Available Not Available warfarin 2 mg tablet active Medicati on ID: 895325 B rand Name: warfarin Send Method: E-Prescr ibed Sub s Allowed: subs OK Medic ationGen ericName : warfarin Not Available Not Available Not Available fluticaso ne propionat e 50 mcg/actua tion nasal spray,andres pension 05/11 completed Medicati on ID: [id number] D uration Value: 30 Brand Name: fluticas one propiona te Send Method: E-Prescr ibed Sub s Allowed: subs OK Speci al Instruct ion: USE 1 SPRAY IN EACH NOSTRIL TWICE A DAY Medi cationGe nericNam e: fluticas one propiona te Not Available Not Available Not Available metformin ER 500 mg tablet,ex tended release 24 hr active Medicati on ID: [id number] B rand Name: metformi n Send Method: E-Prescr ibed Sub s Allowed: subs OK Medic ationGen ericName : metformi n Not Available Not Available Not Available ipratropi um bromide 21 mcg (0.03 %) nasal spray Inhale 2 spray into both nostrils three times a day as directed 05/11 completed Medicati on ID: [id number] Br and Name: Atrovent Send Method: E-Prescr [...] mcg tablet 05/11 completed Medicati on ID: [id number] Br and Name: Centrum Silver Ultra Men's Se nd Method: E-Prescr ibed Sub s Allowed: subs OK Medic ationGen ericName : Centrum Silver Ultra Men's Not Available Not Available Not Available Vitals Date Recorded Body height Body mass index (BMI) Body weight Provider Name and Address Organization Details Last Updated DateTime 08/14/2023 172.72 cm 38 kg/m2 631435.09 g Tevin Koch [place] [facility] 08/14/2023 10:01:01 Social History None recorded. Functional Status None recorded. Mental Status None recorded. Family History Nothing Reported. Medical History No medical history recorded. Past Encounters Encounter ID Performer Location Encounter Start Date Encounter Closed Date Diagnosis/Indication Diagnosis SNOMED-CT Code Diagnosis ICD10 Code Diagnosis Note [id number] RAMYA ARNDT MD [facility] [address] [address] 08/14/2023 09:50:50 08/14/2023 10:16:30 Benign neoplasm of parotid gland 32408096 D11.0 Health Concerns Section Related Observation LastModified by Organization Detai ls LastModified Time None Recorded Concern Status LastModified by Organization Details LastModified Time None Recorded Advance Directives Directive None Recorded Payers Insurance Date Sequence Insurance Name Policy Number Policy Casarez Covered Member ID Casarez Member ID Guarantor Name 07/28/2023 2 [place] Leonardo Pang [id number] Leonardo Pang 08/14/2023 1 MEDICARE B-[place]: [facility] Leonardo Pang [id number] Leonardo Pang Notes Date Note Type Note Provider Name and Address Organization Details Recorded Time 08/14/2023 text/html ROS as noted in the HPI left parotid FNA 05/17/21 - warthin tumorct neck w contrast at [place] 04/27/21left parotid 2.8cm mass. compare with prior [...] cochlear implant with Dr Demetrio ARNDT MD [address] [place] [address], [phone], [facility] - [facility] 08/14/2023 10:15:11
--- OUTSIDE RECORDS SUMMARY | 2024-10-01 07:55 | XMS_ITS | Clinical Summary ---
Author Organization [facility] Address [address] [place], [place] [address] Phone Care Team Providers Care Chemical Operator Name Role Phone Darien Bruner MD [...] [place] [address] MED[place]ARE PART A [place] [id number] [employer] [place] [employer] MEDEX SUPPLEMENT JEANINESAMUEL BEJAR[facility]OT[facility] [place] [address] MEDICARE PART A & B [facility] MEDEX [place] [address] MEDICARE PART A & B [employer] MEDEX SUPPLEMENT TOMEKA C[place] [address] MEDICARE PART A & B [employer] MEDEX SUPPLEMENT Vinicio COOK [place] [address] MEDICARE PART A & B [employer] CROSS MEDEX SUPPLEMENT [address]AZ [address] MEDICARE PART A & B [employer] [place] [address] MEDICARE PART A & B Member Subscriber Plan / Payer (Ef fective 2021-) Name:Leonardo Pang Member ID:[id number] Relation to Subscriber:Self Name:Leonardo Pang Subscriber ID:[id number] Payer ID:[id number] Group ID:Not on file Type:Medicare Address: [employer] [address] [employer] MEDEX SUPPLEMENT MEDICARE PART A & B [employer] MEDEX SUPPLEMENT MEDICARE PART A & B [employer] CROSS MEDEX SUPPLEMENT Care Teams Chemical Operator Relationship Specialty Start Date End Date Darien Bruner MD [address] [place] [address] [place] [address] PCP - General Internal Medicine 05/31/21 Additional Source Comments The information contained in this document represents components of the legal health record. It is not the complete legal health record.[facility]
--- OUTSIDE RECORDS SUMMARY | 2024-10-01 07:55 | XMS_ITS | Clinical Summary ---
Author Organization [facility] Address [address] [place] [address] Care Team Providers Care Power Electronics Engineer Name Role Phone Darien Bruner MD Primary Care Provider [phone] Allergies Active Allergy Reactions Criticality Noted Date Comments Penicillins Unknown/Patient and Family Unable to Define Medium 02/10/2024 Medications SUPPLY DME MISCIndications :Pain in right ankle and joints of right foot RT ANKLE / Foot [place] Boot Dx: Diabetic Neuropathy, RT Plantar foot [...] topic Insurance MEDICARE PART A & B [place] [id number] Care Teams Power Electronics Engineer Relationship Specialty Start Date End Date Darien Bruner MD [address] [place] [address] [place] [address] PCP - General 01/19/24
[2024-10-01 08:10] LABS: Prothrombin Time Whole Bld POC 26.5 sec (11.1-13.5); ~PT, ~INR - Anti Coag Clinic 2.2 (0.9-1.1)
--- NOTE | 2024-10-01 08:10 | MHC.OFFVISCO ---
Intake Intake Visit Reasons: Anticoagulation Allergies Penicillins (PENICILLINS) Allergy (Intermediate, Verified 10/01/24 08:03) rash- STATES BAD RXN CHILD Medication List - Last Reconciled 10/01/24 by Gunjan Valdivia RN blood sugar diagnostic As directed carvedilol 12.5 mg PO DAILY cholecalciferol (vitamin D3) 50 mcg PO DAILY@1600 ferrous sulfate (iron) 325 mg PO DAILY furosemide 80 mg PO MOWEFR@0900 glipizide ER 10 mg PO BID metformin ER 500 mg PO TID metolazone 2.5 mg PO SA@0900 sxqetdoyeuvw-wgksjxqq-zjtqdz 1 tab PO DAILY oxycodone-acetaminophen 5-325 mg 1 tab PO 5XD PRN 30 days pravastatin 80 mg PO BEDTIME tamsulosin 0.4 mg PO DAILY@1700 tizanidine 2 mg PO BEDTIME warfarin 6 mg See Protocol PO DAILY@1800 Nursing Note INR: 2.2- in therapeutic range 2-3 Medications and supplements reviewed- no changes No changes in health, diet, medications, or supplements, Denies any signs and symptoms of bleeding or bruising or clotting. Bleeding, bruising, clotting discussed Nutritional guidance given Dose: 6mg x 7 F/U INR: 4 weeks Patient verbalizes understanding of instructions given pt states upcoming dental extractions, aware to speak to dentist regarding ? warfarin hold and to let acs know Anti-Coag Initial Assessment Social Hx Patient Tobacco Use Status: Former Tobacco user Tobacco use type: Cigarette alcohol intake: former Alcohol intake frequency: does not drink Coding Level of Care Code Est Patient Level 1 Diagnoses Current use of anticoagulant therapy Z79.01 Assessment & Plan Assessment & Plan (1) Current use of anticoagulant therapy: Code(s): Z79.01 - nursing home (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 Medications: New warfarin 4 mg See Protocol PO DAILY Changed From warfarin 6MGX7 6 mg See Protocol PO DAILY@1800 To warfarin 6MGX7 2 mg See Protocol PO DAILY@1800
== END 2024-10-01 08:15 | disposition home or self-care (01) ==
LOC: HO.ACS 07:53
PROVIDERS: PCP Internal Medicine; Visit Provider Internal Medicine Medical Oncology
DX: Z79.01 Long term (current) use of anticoagulants (principal)

== ENCOUNTER → 2024-10-01 07:53 | Outpatient (BNVA) | payer MEDICARE, SELFPAY | PROVIDERS: PCP Internal Medicine; Visit Provider Internal Medicine Medical Oncology | DX: Z51.81 Encounter for therapeutic drug level monitoring (principal); Z79.01 Long term (current) use of anticoagulants | CPT/HCPCS: 85610; 99211 ==

== ENCOUNTER 2024-10-29 07:56 | Outpatient (AMB) | payer MEDICARE, SELFPAY ==
--- OUTSIDE RECORDS SUMMARY | 2024-07-29 05:00 | XMS_ITS ---
Author Organization [facility] Address [address] [place] [address] Care Team Providers Care Equipment Engineering Technician Name Role Phone Young Bunn Primary Care Provider [phone] Ronel Leon [phone] Encounters Encounter Location Date Provider Diagnosis [address] [address] 07/29/2024 Ronel Leon Plan Of Treatment Next Appt Details Provider Name:Ronel Leon , 03/17/2025 08:30:00 AM, [address] [place], [address], Progress Notes * Leonardo GRIFFINDOB:1950 (74 yo M)Acc No.[id number]:07/29/2024 Progress Note Patient: Holli HERNANDEZLeonardo Provider: Rashard Leon DPM :1950 A ge:74 Y S ex:Male Date:07/29/2024 Address:[address] [place] [address] [place], [phone] Pcp:Young Bunn Subjective: * Chief Complaints: * [...] 07/29/2024 Generated for René temple/Melissa/Patel on: 0 10/29/2024 07:58 AM EDT
--- OUTSIDE RECORDS SUMMARY | 2024-10-29 07:59 | XMS_ITS | Clinical Summary ---
Author Organization [facility] Address [address] [place], [place] [address] Phone Care Team Providers Care Print Inspector Name Role Phone Darien Bruner MD [...] [place] [address] MEDICARE PART A [place] [id number] [place] [employer] MEDEX SUPPLEMENT JEANINESAMUEL BEJARANOC[facility] [place] [address] MEDICARE PART A & B [facility] MEDEX [place] [address] MEDICARE PART A & B [employer] MEDEX SUPPLEMENT [place]KA [place] [address] MEDICARE PART A & B [employer] MEDEX SUPPLEMENT Vinicio [place] [address] MEDICARE PART A & B [employer] MEDEX SUPPLEMENT FARAZ [address] MEDICARE PART A & B [employer] [place] [address] MEDICARE PART A & B Member Subscriber Plan / Payer (Ef fective 2021-) Name:Leonardo Pang Member ID:[id number] Relation to Subscriber:Self Name:Leonardo Pang Subscriber ID:[id number] Payer ID:[id number] Group ID:Not on file Type:Medicare Address: [employer] [address] [employer] MEDEX SUPPLEMENT MEDICARE PART A & B [employer] MEDEX SUPPLEMENT MEDICARE PART A & B [employer]OSS MEDEX SUPPLEMENT Care Teams Print Inspector Relationship Specialty Start Date End Date Darien Bruner MD [address] [place] [address] [place] [address] PCP - General Internal Medicine 05/31/21 Additional Source Comments The information contained in this document represents components of the legal health record. It is not the complete legal health record.[facility]
--- OUTSIDE RECORDS SUMMARY | 2024-10-29 07:59 | XMS_ITS | Patient Health Record ---
Author Organization [facility] Address [address] [place] [address] Care Team Providers Care Asset Administrator Name Role Phone Zohreh (RETIRED) Darien LI [...] Problem Status W/U Status Risk Notes Problem 066346845 Colon cancer screening (Z12.11) Active confirmed Problem 497707835 residential (curre nt) use of anticoagulants (Z79.01) Active confirmed Problem 405052628 Personal history of colonic polyps (Z86.010) Active confirmed Problem 65395157 Encounter for ot her preprocedural examination (Z01.818) Active confirmed Problem 791714036 residential (curre nt) use of insulin (Z79.4) [...] [place] [address] [place] [address] [id number] KAZ GRIFFIN Self - patient is the insured MED[employer] ATTN CLAIMS [address] [place] [address] [id number] KAZ GRIFFIN Self - patient is the [...]
--- OUTSIDE RECORDS SUMMARY | 2024-10-29 07:59 | XMS_ITS | Clinical Summary ---
Author Organization [facility] Address [address] [place] [address] Care Team Providers Care Roto Rooter Operator Name Role Phone Darien Bruner MD Primary Care Provider [phone] Allergies Active Allergy Reactions Criticality Noted Date Comments Penicillins Unknown/Patient and Family Unable to Define Medium 02/10/2024 Medications SUPPLY DME MISCIndications :Pain in right ankle and joints of right foot RT ANKLE / Foot [place] Boot Dx: Diabetic Neuropathy, RT Plantar foot [...] topic Insurance MEDICARE PART A & B [place] [id number] Care Teams Roto Rooter Operator Relationship Specialty Start Date End Date Darien Bruner MD [address] [place] [address] [place] [address] PCP - General 01/19/24
--- NOTE | 2024-10-29 08:03 | MHC.OFFVISCO ---
Intake Intake Visit Reasons: Anticoagulation Allergies Penicillins (PENICILLINS) Allergy (Intermediate, Verified 10/29/24 07:58) rash- STATES BAD RXN CHILD Medication List - Last Reconciled 10/29/24 by Gunjan Valdivia RN blood sugar diagnostic As directed carvedilol 12.5 mg PO DAILY cholecalciferol (vitamin D3) 50 mcg PO DAILY@1600 ferrous sulfate (iron) 325 mg PO DAILY furosemide 80 mg PO MOWEFR@0900 glipizide ER 10 mg PO BID metformin ER 500 mg PO TID metolazone 2.5 mg PO SA@0900 otxqhkgijivt-goxwymeu-pgfvdt 1 tab PO DAILY oxycodone-acetaminophen 5-325 mg 1 tab PO 5XD PRN 30 days pravastatin 80 mg PO BEDTIME tamsulosin 0.4 mg PO DAILY@1700 tizanidine 2 mg PO BEDTIME warfarin 2 mg See Protocol PO DAILY@1800 warfarin 4 mg See Protocol PO DAILY Nursing Note INR: 2.9- in therapeutic range 2-3 Medications and supplements reviewed- no changes No changes in health, diet, medications, or supplements, Denies any signs and symptoms of bleeding or bruising or clotting. 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
[2024-10-29 08:04] LABS: Prothrombin Time Whole Bld POC 34.3 sec (11.1-13.5); ~PT, ~INR - Anti Coag Clinic 2.9 (0.9-1.1)
== END 2024-10-29 08:08 | disposition home or self-care (01) ==
LOC: HO.ACS 07:56
PROVIDERS: PCP Internal Medicine; Visit Provider Internal Medicine Medical Oncology
DX: Z79.01 Long term (current) use of anticoagulants (principal)

== ENCOUNTER → 2024-10-29 07:56 | Outpatient (BNVA) | payer MEDICARE, SELFPAY | PROVIDERS: PCP Internal Medicine; Visit Provider Internal Medicine Medical Oncology | DX: Z51.81 Encounter for therapeutic drug level monitoring (principal); Z79.01 Long term (current) use of anticoagulants | CPT/HCPCS: 85610; 99211 ==

== ENCOUNTER 2024-11-12 08:33 | Emergency (ER) | payer MEDICARE, SELFPAY ==
--- OUTSIDE RECORDS SUMMARY | 2024-02-23 04:00 | XMS_ITS ---
Author Organization [facility] Address [address] [place] [address] Care Team Providers Care Cd Technician Name Role Phone Young Bunn Primary Care Provider [phone] Ronel Leon [phone] Encounters Encounter Location Date Provider Diagnosis [address] [address] 02/23/2024 Ronel Leon Plan Of Treatment Next Appt Details Provider Name:Ronel Leon , 03/17/2025 08:30:00 AM, [address] [place], [address], Progress Notes * Leonardo GRIFFINDOB:1950 (74 yo M)Acc No.[id number]:02/23/2024 Progress Note Patient: Holli HERNANDEZLeonardo Provider: Rashard Leon DPM :1950 A ge:73 Y S ex:Male Date:02/23/2024 Address:[address] [place] [address] [place], [id number] Pcp:Young Bunn Subjective: * Chief Complaints: * [...] 1 04/25/2023 Generated for René temple/Melissa/Patel on: 0 11/12/2024 09:41 AM EDT
--- OUTSIDE RECORDS SUMMARY | 2024-07-29 05:00 | XMS_ITS ---
Author Organization [facility] Address [address] [place] [address] Care Team Providers Care Experimental Aircraft Mechanic Name Role Phone Young Bunn Primary Care Provider [phone] Ronel Leon [phone] Encounters Encounter Location Date Provider Diagnosis [address] [address] 07/29/2024 Ronel Leon Plan Of Treatment Next Appt Details Provider Name:Ronel Leon , 03/17/2025 08:30:00 AM, [address] [place], [address], Progress Notes * Leonardo GRIFFINDOB:1950 (74 yo M)Acc No.[id number]:07/29/2024 Progress Note Patient: Holli HERNANDEZLeonardo Provider: Rashard Leon DPM :1950 A ge:74 Y S ex:Male Date:07/29/2024 Address:[address] [place] [address] [place], [phone] Pcp:Young Bunn Subjective: * Chief Complaints: * [...] 0 07/29/2024 Generated for René temple/Melissa/Patel on: 0 11/12/2024 09:40 AM EDT
--- OUTSIDE RECORDS SUMMARY | 2024-10-25 07:15 | XMS_ITS ---
Author Organization [facility] Address [address] [place] [address] Care Team Providers Care Pressure Steamer Tender Name Role Phone Young Bunn Primary Care Provider [phone] Ronel Leon [phone] Encounters Encounter Location Date Provider Diagnosis [address] [address] 10/25/2024 Ronel Leon Plan Of Treatment Next Appt Details Provider Name:Ronel Leon , 03/17/2025 08:30:00 AM, [address] [place], [address], Progress Notes * Leonardo GRIFFINDOB:1950 (74 yo M)Acc No.[id number]:10/25/2024 Progress Note Patient: Holli HERNANDEZLeonardo Provider: Rashard Leon DPM :1950 A ge:74 Y S ex:Male Date:10/25/2024 Address:[address] [place] [address] [place], [id number] Pcp:Young Bunn Subjective: * Chief Complaints: * [...] 0 10/25/2024 Generated for René temple/Melissa/Patel on: 0 11/12/2024 09:40 AM EDT
--- NOTE | ~2024-11-12 | XR_ITS ---
EXAMINATION: XR FOOT, RIGHT CLINICAL INFORMATION: hx charcot foot, ? plantar wound infection COMPARISON: 03/07/2024. TECHNIQUE: 2 views of the right foot. FINDINGS: 2 limited views submitted. Severe degenerative changes throughout the imaged hindfoot and midfoot with abundant hypertrophic change, spurring, and sclerosis. Pes planus. Findings are consistent with Charcot joint. Small dorsal and plantar calcaneal spurs are present. Hammertoe deformities are present. No fracture, focal osteopenia, or erosive bony changes identified. Probable ulceration in the plantar aspect of the mid to hindfoot. Mild subcutaneous emphysema in this region. No radiopaque foreign body seen. Diffuse soft tissue swelling of the forefoot and midfoot is present. There are vascular calcifications present. XR/XR foot RT 2V IMPRESSION: 1. Findings consistent with Charcot joint of the mid and hindfoot. 2. No fracture, focal osteopenia, or focal erosive bony change noted. 3. There is likely plantar soft tissue ulceration of the mid to hindfoot. Electronically signed by: Lowell Simon MD 11/12/2024 10:14 AM EDT
[2024-11-12 08:45] VITALS: BP 117/64; PULSE 86; RESP 18; TEMP 37.2; O2SAT 97; BMI 39.5
[2024-11-12 09:20] LABS: MANUAL DIFF FLAG NO
[2024-11-12 09:29] LABS: Hematocrit 37.8 % (42.0-52.0); Hemoglobin 12.7 g/dl (14.0-18.0); Imm Gran Abs Auto 0.04 X10*3/uL (0.00-0.03); Imm Gran Pct Auto 0.5 % (0.0-0.4); Lymphocytes Absolute Auto 1.4 X10*3/uL (1.2-4.9); Mean Corpuscular HGB Conc 33.6 g/dl (31.0-36.0); Mean Corpuscular Hemoglobin 31.9 pg (27.0-33.0); Mean Corpuscular Volume 95.0 fL (80.0-98.0); NRBC Abs Auto 0.000 X10*3/uL (0.0-0.012); NRBC Pct Auto 0.0 /100WBC (0.0-0.2); Platelet Count 157 X10*3/uL (160-400); Red Blood Count 3.98 X10*6/uL (4.60-5.80); White Blood Count 8.7 X10*3/uL (4.8-10.8)
[2024-11-12 09:35] LABS: INTERNATIONAL NORM RATIO 2.9 (0.9-1.1); Prothrombin Time 33.7 SEC (10.9-12.4)
--- OUTSIDE RECORDS SUMMARY | 2024-11-12 09:41 | XMS_ITS | Clinical Summary ---
Author Organization [facility] Address [address] [place], [place] [id number] Phone Care Team Providers Care Equities Analyst Name Role Phone Darien Bruner MD [...] [place] [address] MEDICARE PART A [place] [id number] [employer] MEDEX SUPPLEMENT [facility] [place] [address] MEDICARE PART A & B [facility] MEDEX [place] [address] MEDICARE PART A & B [employer] MEDEX SUPPLEMENT TOMEKA COOK [place] [address] MEDICARE PART A & B [employer] MEDEX SUPPLEMENT Vinicio COOK [place] [address] MEDICARE PART A & B gripNote CROSS MEDEX SUPPLEMENT [address] MEDICARE PART A & B gripNote [place]OSS [place] [address] MEDICARE PART A & B Member Subscriber Plan / Payer (Ef fective 2021-) Name:Leonardo Pang Member ID:[id number] Relation to Subscriber:Self Name:Leonardo Pang Subscriber ID:[id number] Payer ID:[id number] Group ID:Not on file Type:Medicare Address: [employer] [id number] [employer] MEDEX SUPPLEMENT MEDICARE PART A & B [employer] MEDEX SUPPLEMENT MEDICARE PART A & B gripNote CROSS MEDEX SUPPLEMENT Care Teams Equities Analyst Relationship Specialty Start Date End Date Darien Bruner MD [address] [place] [address] [place] [address] PCP - General Internal Medicine 05/31/21 Additional Source Comments The information contained in this document represents components of the legal health record. It is not the complete legal health record.[facility]
--- OUTSIDE RECORDS SUMMARY | 2024-11-12 09:41 | XMS_ITS | Patient Health Record ---
Author Organization [facility] Address [address] [facility] [place] [address] Care Team Providers Care Senior Cisco Network Engineer Name Role Phone Young Bunn Primary Care Provider [phone] Black, Ronel Unavailable [phone] Allergies Allergen (clinical drug ingredient) Drug/Non Drug Allergy documented on EMR Reaction Allergy Type Onset Date Status amoxicillin Amoxicillin Unknown Drug Allergy Act anneliese Penicillin Unknown Drug Allergy Active Results Component Value Reference Range Notes HEMOGLOBIN A1C (GLYCOHEMOGLO BIN) Reviewed date:04/19/2024 10:17:18 AM Interpretation: Performing Lab: Notes/Report: HEMOGLOBIN A1C % (HH) 6.7 HEMOGLOBIN A1C (GLYCOHEMOGLO BIN) Reviewed date:10/28/2024 09:07:33 AM Interpretation: Performing Lab: Notes/Report: HEMOGLOBIN A1C % (HH) 6.6 Reason For Referral No Information Medications Medication SIG (Take, Route, Frequency, Duration) Notes Start Date End Date Status Omeprazole 40 MG 1 capsule 30 minutes before morning meal Orally Once a day; Duration: 30 day(s) Not-Taking NexIUM Not-Taking Insulin 34UNITS 20-22 units per day before bed Not-Taking Diltiazem HCl CR Not -Taking Melatonin Not-Taking traMADol HCl Not-Elvis ing Digoxin Not-Taking Penecillin Not-Takin g Compression Stockings 20-30mm Hg 1 pair wear daily; Duration: 30 days Active Extra Depth Orthopedic Shoes (1 Pair) with Customized Heat Molded Multidensity Innersoles (3 Pair) as directed Dx: NIDDM/Polyneuropathy (E11.42), Hammertoe Foot Deformity (M20.41,M20.42), Preulcerative Skin Lesion(s) (L85.1 10/17/2022 Active Vitamin D Active Pravastatin Sodium A ctive glipiZIDE Active Aspir-81 Not-Taking Centrum Silver Activ e Lantus SoloStar Not- Taking Carvedilol 12.5 MG 1 tablet with food Orally Active zzzExtra Depth Orthopedic Shoes (1 Pair) with Customized Heat Molded Multidensity Innersoles (3 Pair) . . . Dx: NIDDM/Polyneuropathy (E11.42), Hammertoe Foot Deformity (M20.41,M20.42), Preulcerative Skin Lesion(s) (L85.1); Duration: . 07/10/2015 Not-Taking metOLazone Not-Takin g Iron 65 mg 1 tablet Orally Once a day Active Warfarin Sodium Acti ve Extra-Depth Diabetic Shoes with 3 Pair Custom heat-molded multi-density innersoles Active metFORMIN HCl Active oxyCODONE-Acetaminop hen 5-325 MG 1 tablet as needed Orally every 6 hrs Active Doxycycline Hyclate Not-Taking Furosemide 40 MG 1 tablet Orally Once a day; Duration: 30 day(s) Active Clindamycin HCl 300 MG 1 capsule Orally every 8 hrs; Duration: 10 day(s) 10/06/2014 Not-Taking Extra-Depth Diabetic Shoes with 3 Pair Custom heat-molded multi-density innersoles . for 1 year . Dx:hammertoes,Hallux valgus,pre ulcerative lesions; Duration: . 06/20/2014 Not-Taking Bactrim DS 800-160 MG 1 tablet Orally every 12 hrs; Duration: 10 day(s) 10/06/2014 Not-Taking Immunizations Vaccine Route Administration Date Status Comme nts Influenza Unknown 07/10/2015 Pending Influenza Unknown 07/10/2015 Pending Influenza Unknown 01/01/2016 Administered Influenza Unknown 11/25/2016 Administered Influenza Unknown 11/06/2017 Administered Influenza Unknown 12/09/2019 Administered Influenza Unknown 11/08/2021 Administered Influenza Unknown 11/08/2022 Administered Influenza Unknown 11/09/2023 Administered COVID-19 Pfizer BioNTech Vaccine Unknown 05/18/2020 [...] (Standard) Question Answer Notes Tobacco use: Nonsmoker AUDIT-C (Standard) Question Answer Notes Did you have a drink containing alcohol in the p ast year? 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) Charcot foot due to diabetes mellitus (E11.610) Active confirmed Vital Signs Blood pressure diastolic 65 mm Hg 10/28/2024 Height 5ft8in in 10/28/2024 Blood pressure systolic 121 mm Hg 10/28/2024 Weight 245 lbs 10/28/2024 BMI 37.25 kg/m2 10/28/2024 Procedures Procedure Date Ordered Date Performed Result Body Sit e 31070-HXLOKZP NAIL, 6 OR MORE 04/19/2024 N/A 76523-VSBX SKIN LESIONS, OVER 4 04/19/2024 N/A 94820-PIUBRNX NAIL, 6 OR MORE 10/28/2024 N/A 21527-AIZS SKIN LESIONS, OVER 4 10/28/2024 N/A Encounters Encounter Location Date Provider Diagnosis [address] [address] 04/19/2024 Ronel Black Type 2 diabetes mellitus with diabetic polyneuropathy E11.42 ; Charcot foot due to diabetes mellitus E11.610 ; Tinea unguium B35.1 ; Charcot gait R26.0 ; Skin ulcer of toe of right foot, limited to breakdown of skin L97.511 and Subungual contusion of toe of left foot, initial encounter S90.222A [address] [address] 10/28/2024 Ronel Black Type 2 diabetes mellitus with diabetic polyneuropathy E11.42 ; Charcot foot due to diabetes mellitus E11.610 ; Tinea unguium B35.1 and Charcot gait R26.0 [facility] [address] [place] [address] 02/12/2024 Ronel Leon [facility] [address] [place] [address] 07/26/2024 Ronel Leon Assessments Encounter Date Diagnosis (ICD Code) Assessment Notes Treatment Notes Treatment Clinical Notes Section Notes 04/19/2024 Type 2 diabetes mellitus with diabetic polyneuropathy (ICD-10 - E11.42) 04/19/2024 Charcot foot due to diabetes mellitus (ICD-10 - E11.610) 10/28/2024 Type 2 diabetes mellitus with diabetic polyneuropathy (ICD-10 - E11.42) 10/28/2024 Charcot foot due to diabetes mellitus (ICD-10 - E11.610) 10/28/2024 Tinea unguium (ICD-10 - B35.1) 04/19/2024 Tinea unguium (ICD-10 - B35.1) 10/28/2024 Charcot gait (ICD-10 - R26.0) 04/19/2024 Charcot gait (ICD-10 - R26.0) 04/19/2024 Skin ulcer of toe of right foot, limited to breakdown of skin (ICD-10 - L97.511) 04/19/2024 Subungual contusion of toe of left foot, initial encounter (ICD-10 - S90.222A) Plan Of Treatment Pending Test Test Name Order Date Hemoglobin A1c 06/04/2018 89834-CCWMDOQ NAIL, 6 OR MORE 10/28/2024 01106-ONOIAUQ NAIL, 6 OR MORE 04/19/2024 86468-SCFETRM NAIL, 6 OR MORE 12/05/2010 16666-WNBDNLT NAIL, 6 OR MORE 02/06/2011 08896-BPLOACM NAIL, 6 OR MORE 04/22/2011 57889-WUXFGCM NAIL, 6 OR MORE 07/15/2011 20048-AGRFZAZ NAIL, 6 OR MORE 09/25/2011 86731-OOQCQSK NAIL, 6 OR MORE 10/28/2011 73264-RGIKPQC NAIL, 6 OR MORE 01/16/2012 86518-PPDHYRG NAIL, 6 OR MORE 04/08/2012 84731-JKFQACK NAIL, 6 OR MORE 06/24/2012 12787-PGLLEAB NAIL, 6 OR MORE 09/23/2012 83207-ABCIPHK NAIL, 6 OR MORE 12/28/2012 86904-FLAUQBJ NAIL, 6 OR MORE 03/31/2013 44150-NISIHHO NAIL, 6 OR MORE 06/14/2013 60127-CMNDXJZ NAIL, 6 OR MORE 09/20/2013 70001-RXKVNVN NAIL, 6 OR MORE 12/22/2013 12957-AKRBYQN NAIL, 6 OR MORE 03/21/2014 98755-ZADRLOC NAIL, 6 OR MORE 06/20/2014 90456-EMIXMTM NAIL, 6 OR MORE 09/21/2014 25108-IZDPEML NAIL, 6 OR MORE 11/30/2014 90296-QVHNJDY NAIL, 6 OR MORE 02/06/2015 96906-TPZAMAJ NAIL, 6 OR MORE 05/01/2015 86280-WUEACFD NAIL, 6 OR MORE 07/10/2015 80668-JHSDRXV NAIL, 6 OR MORE 10/02/2015 25853-WSIHEGW NAIL, 6 OR MORE 12/14/2015 28752-YHUWEJW NAIL, 6 OR MORE 02/22/2016 78022-PKOZVKT NAIL, 6 OR MORE 05/30/2016 35432-BPFQQAH NAIL, 6 OR MORE 08/29/2016 32901-NGMYVHC NAIL, 6 OR MORE 11/28/2016 06181-CWUKHET NAIL, 6 OR MORE 02/27/2017 60773-SCZQKAW NAIL, 6 OR MORE 05/29/2017 03932-FBVKGHY NAIL, 6 OR MORE 08/28/2017 65762-WBAXXPH NAIL, 6 OR MORE 03/12/2018 27326-EYGWCRK NAIL, 6 OR MORE 11/27/2017 25493-LAPMWJH NAIL, 6 OR MORE 06/04/2018 72103-RHJFTNV NAIL, 6 OR MORE 07/12/2021 36268-IMKDMVS NAIL, 6 OR MORE 10/25/2021 95241-BQJTDWJ NAIL, 6 OR MORE 02/07/2022 91072-YYTQYRQ NAIL, 6 OR MORE 06/13/2022 98823-EFWFJXE NAIL, 6 OR MORE 10/17/2022 16268-DZMYOPO NAIL, 6 OR MORE 02/17/2023 09086-OQVORHZ NAIL, 6 OR MORE 06/19/2023 04447-SXWOIOX NAIL, 6 OR MORE 10/23/2023 59643-Ommv Destruction, -14 02/17/2023 89856-Wrul Destruction, -06/19/2023 92495-Fopm Destruction, -06/13/2022 40781-Rlci Destruction, -10/17/2022 25489-Xbtjqodm Plate 07/12/2021 40117-Prfjuufz Plate 10/25/2021 12010-Uxbgdqnm Plate 05/29/2017 38296-Bzwtzvbh Plate 08/29/2016 10820-Tpyginjk Plate 11/30/2014 54637-Lybdeqqi Plate 09/21/2014 93017-Zavhccxn Plate 06/14/2013 62131-Hdkacwve Plate 06/20/2014 19099-Jwrskega Plate 03/21/2014 46622-Jblvohwm Plate 12/22/2013 59015-Vvbftbja Plate 09/20/2013 19763- Debride <25 sq cm 09/20/2013 69160- Debride <25 sq cm 12/22/2013 55606- Debride <25 sq cm 06/14/2013 99601- Debride <25 sq cm 03/31/2013 43118- Debride <25 sq cm 03/21/2014 80216- Debride <25 sq cm 06/20/2014 96858- Debride <25 sq cm 09/21/2014 11184- Debride <25 sq cm 12/28/2012 13088- Debride <25 sq cm 09/23/2012 67917- Debride <25 sq cm 06/24/2012 70069- Debride <25 sq cm 04/08/2012 21360- Debride <25 sq cm 01/16/2012 00553- Debride <25 sq cm 10/28/2011 51205- Debride <25 sq cm 09/02/2011 52069- Debride <25 sq cm 09/25/2011 85593- Debride <25 sq cm 12/26/2010 53573- Debride <25 sq cm 02/22/2016 70270- Debride <25 sq cm 12/14/2015 91357- Debride <25 sq cm 10/02/2015 64105- Debride <25 sq cm 10/12/2015 12170- Debride <25 sq cm 10/06/2014 78253- Debride <25 sq cm 05/30/2016 85705- Debride <25 sq cm 02/27/2017 00822- Debride <25 sq cm 10/25/2021 56988- Debride <25 sq cm 02/07/2022 45230- Debride <25 sq cm 10/17/2022 48789-YFCJJRK SKIN/TISSUE 03/12/2018 67816-EZYSRXU SKIN/TISSUE 06/04/2018 26819-VRYTHVL SKIN/TISSUE 11/27/2011 57955-XCBVHOB SKIN/TISSUE 12/11/2011 90914-BFWVVPS SKIN/TISSUE 10/06/2014 86259 I&D ABSCESS- SIMPLE,SINGLE 015 01649 I&D ABSCESS- SIMPLE,SINGLE 011 36438 I&D ABSCESS- SIMPLE,SINGLE 015 01366-XURK SKIN LESIONS, OVER 4 12/01/19 15 77253-MPNQ SKIN LESIONS, OVER 4 02/07/20 15 43561-RWBE SKIN LESIONS, OVER 4 07/10/19 16 71919-VIMV SKIN LESIONS, OVER 4 05/01/19 16 09974-BDFF SKIN LESIONS, OVER 4 10/02/19 16 62093-RFJZ SKIN LESIONS, OVER 4 12/14/19 16 00921-LIHU SKIN LESIONS, OVER 4 02/22/20 16 93214-EQBC SKIN LESIONS, OVER 4 02/28/20 17 01273-PLBD SKIN LESIONS, OVER 4 05/30/19 18 33160-IHCL SKIN LESIONS, OVER 4 08/29/19 18 12901-TWZJ SKIN LESIONS, OVER 4 11/28/19 18 69873-WPQJ SKIN LESIONS, OVER 4 05/31/19 17 08644-IHWA SKIN LESIONS, OVER 4 11/29/19 17 10651-HQNZ SKIN LESIONS, OVER 4 06/05/19 19 84053-AAEU SKIN LESIONS, OVER 4 03/12/19 19 69904-TWLJ SKIN LESIONS, OVER 4 10/18/19 23 37282-ZQVM SKIN LESIONS, OVER 4 06/14/19 23 53218-TYEV SKIN LESIONS, OVER 4 02/18/20 23 54214-IRIO SKIN LESIONS, OVER 4 06/19/19 24 40243-UYRM SKIN LESIONS, OVER 4 04/19/19 25 11215-WFKF SKIN LESIONS, OVER 4 10/23/19 24 96765-SESO SKIN LESIONS, OVER 4 12/06/19 11 26094-LKTH SKIN LESIONS, OVER 4 02/07/20 11 40915-QLYD SKIN LESIONS, OVER 4 07/15/19 12 77288-MTOU SKIN LESIONS, OVER 4 04/22/19 12 05658-ZKWR SKIN LESIONS, OVER 4 09/25/19 12 36725-WZMC SKIN LESIONS, OVER 4 10/28/19 12 84636-TOVA SKIN LESIONS, OVER 4 09/24/19 13 15506-XMOY SKIN LESIONS, OVER 4 12/29/19 13 26518-FWVG SKIN LESIONS, OVER 4 01/16/20 12 92239-NVCN SKIN LESIONS, OVER 4 04/08/19 13 71237-LNZH SKIN LESIONS, OVER 4 06/25/19 13 38293-XHVE SKIN LESIONS, OVER 4 09/22/19 15 13887-LINY SKIN LESIONS, OVER 4 03/21/19 15 44343-TYWE SKIN LESIONS, OVER 4 06/21/19 15 51052-NQPO SKIN LESIONS, OVER 4 03/31/19 14 81761-UIKX SKIN LESIONS, OVER 4 06/15/19 14 40121-QPDY SKIN LESIONS, OVER 4 12/23/19 14 49136-XQIP SKIN LESIONS, OVER 4 09/21/19 14 18358-HLOD SKIN LESIONS, OVER 4 10/29/19 25 90445-XTTM SKIN LESIONS, 2 TO 4 12/23/19 14 35393-PAYY SKIN LESIONS, 2 TO 4 06/15/19 14 13763-RCSA SKIN LESIONS, 2 TO 4 03/31/19 14 31257-XGZB SKIN LESIONS, 2 TO 4 06/21/19 15 74258-HFXY SKIN LESIONS, 2 TO 4 03/21/19 15 28881-WPRG SKIN LESIONS, 2 TO 4 12/29/19 13 76750-OXXK SKIN LESIONS, 2 TO 4 09/24/19 13 90181-FVNM SKIN LESIONS, 2 TO 4 07/13/19 22 87516-UCGT SKIN LESIONS, 2 TO 4 02/08/20 22 16117-PIVU SKIN LESIONS, 2 TO 4 10/26/19 22 32880-EDWL SKIN LESIONS, 2 TO 4 08/30/19 17 70551-Kebz. Subungual Hematoma 2 32614-Cnpz. Subungual Hematoma 2 Next Appt Details Provider Name:Ronel Leon , 03/17/2025 08:30:00 AM, [address] [facility], [place], [address], Insurance Providers Payer Name Payer Address Payer Phone Subscriber Number Group Number Insured Name Patient Relationship to Insured Coverage Start Date Coverage End Date Medicare National Govt Seakeeper [facility] [address] [place] [address] [phone] [id number] Leonardo Pang Self - patient is the insured [employer] [address] [place] [address] [phone] [id number] Leonardo Pang Self - patient is the insured Medical (General) History Medical History History ICD Code osteoporosis hypertension diabetes mellitus back, hip, knee pain Arthritis Cholesterol Unsteady gait R26.81 Charcot gait R26.0 Hallux valgus (acquired), right foot M20 .11 Hallux valgus (acquired), left foot M20. 12 Surgical History Surgery Date(Month/Year) hip surgery 11908/1996 cocculer ear implant 12/2013 colonoscopy 05/2017 left knee replacement 12/27 Hospitalization History Reason Date(Month/Year) [facility]- [facility] on foot 08/28/23 [facility] for a-fib 10/23/19 12
--- OUTSIDE RECORDS SUMMARY | 2024-11-12 09:41 | XMS_ITS | Clinical Summary ---
Author Organization [facility] Address [address] [place] [address] Care Team Providers Care Race Steward Name Role Phone Darien Bruner MD Primary Care Provider [phone] Allergies Active Allergy Reactions Criticality Noted Date Comments Penicillins Unknown/Patient and Family Unable to Define Medium 02/10/2024 Medications SUPPLY DME MISCIndications :Pain in right ankle and joints of right foot RT ANKLE / Foot TANANA Boot Dx: Diabetic Neuropathy, RT Plantar foot [...] Health Maintenance Due Date Last Done Comments Advance Care Planning 1950 Hepatitis C Virus Screening 1950 DTaP/Tdap/Td Vaccines (1 - Tdap) 1971 Colonoscopy 1997 Pneumococcal Vaccines 50+ (1 of 1 - PCV) 2002 Zoster (Shingles) Vaccine (1 of 2) 2002 RSV Vaccine 60 years and older and Patients (1 - Risk 60-74 years 1-dose series) 2012 COVID-19 Vaccine (2023-2 5 season) 2023 06/08/2020, 05/18/2020 Influenza Vaccine 10/08/2024 Hepatitis B Vaccines Aged Out No long er eligible based on patient's age to complete this topic Insurance MEDICARE PART A & B [place] [id number] Care Teams Race Steward Relationship Specialty Start Date End Date Darien Bruner MD [address] [place] [address] [place] [address] PCP - General 01/19/24
[2024-11-12 09:42] LABS: Alanine Aminotransferase 13 U/L (0-40); Albumin Level 4.0 g/dL (3.5-5.0); Alkaline Phosphatase 71 U/L (39-117); Anion Gap 13 (12-20); Aspartate Amino Transferase 25 U/L (5-37); Blood Urea Nitrogen 25 mg/dL (9-16); Calcium 9.0 mg/dL (8.4-10.2); Carbon Dioxide 29 mmol/L (22-29); Chloride 104 mmol/L (96-108); Creatinine Clr Calc Pharmacy 76.4; Estimated Glomerular Filt Rate > 60; Potassium 4.2 mmol/L (3.3-5.1); Sodium 142 mmol/L (135-145); Total Protein 6.9 g/dL (6.5-8.0)
--- OUTSIDE RECORDS SUMMARY | 2024-11-12 09:42 | XMS_ITS | Patient Health Record ---
Author Organization [facility] Address [address] [place] [address] Care Team Providers Care Substation Designer Name Role Phone Zohreh (RETIRED) Darien LI [...] Problem Status W/U Status Risk Notes Problem 125037244 Colon cancer screening (Z12.11) Active confirmed Problem 806559695 [facility] (curre nt) use of anticoagulants (Z79.01) Active confirmed Problem 739330000 Personal history of colonic polyps (Z86.010) Active confirmed Problem 99456340 Encounter for ot her preprocedural examination (Z01.818) Active confirmed Problem 511032787 [facility] (curre nt) use of insulin (Z79.4) Active [...] [place] [address] [place] [address] [id number] KAZ GRIFFIN Self - patient is the insured [employer] ATT[employer] CLAIMS [address] [place] [address] [phone] [id number] KAZ GRIFFIN Self - patient is the [...]
--- NOTE | 2024-11-12 09:47 | ED.GENADULT ---
HPI - General Adult General Chief complaint: Wound/Laceration Stated complaint: r foot infection Time Seen by Provider: 11/12/24 09:47 History of Present Illness ED Provider: Saranya OROZCO narrative: The patient is a 74-year-old male with a history of multiple medical problems including diabetes and atrial fibrillation. He is on warfarin. He has a history of Charcot foot. He has a history of peripheral neuropathy. The patient has had a chronic wound on the plantar aspect of his right foot for a long time and is seen at the wound clinic. He was last seen at the wound clinic on November 04, 8 days ago. The patient's is concerned because he has developed some skin color change to the skin of the right lower leg over the last 3 or 4 days. She feels it is somewhat increasingly warm as well. She was concerned that this might be a sign of infection in the foot. She called the wound clinic today to see if he could be seen at the wound clinic today but the wound clinic did not have availability and advised her to come to the emergency department instead. There has been no fever, sweats, chills. The patient has not seemed otherwise ill but the patient's says that the patient has sometimes had infections without fevers or other significant symptoms. The patient has not had any pain in the foot or the leg but apparently he has significant neuropathy and often does not feel discomfort in the foot or the leg. No fever, sweats, chills. No cough or sputum. No nausea or vomiting. Related Data Home Medications ?Medication ?Instructions ?Recorded ?Confirmed tamsulosin 0.4 mg capsule 0.4 mg PO DAILY@1700 12/31/19 08/09/24 cholecalciferol (vitamin D3) 25 50 mcg PO DAILY@1600 05/08/20 08/09/24 mcg (1,000 unit) capsule qlachdcluzvo-gtjztqcu-lvqxhm tablet 1 tab PO DAILY 05/08/20 08/09/24 blood sugar diagnostic #10 ea 06/12/20 08/09/24 carvedilol 12.5 mg tablet 12.5 mg PO DAILY 09/06/23 08/09/24 glipizide 5 mg tablet, extended 10 mg PO BID 09/06/23 08/09/24 release 24 hr metolazone 2.5 mg tablet 2.5 mg PO SA@0900 09/06/23 08/09/24 furosemide 80 mg tablet 80 mg PO MOWEFR@0900 02/04/24 08/09/24 ferrous sulfate 325 mg (65 mg 325 mg PO DAILY 03/07/24 08/09/24 iron) tablet (iron) tizanidine 2 mg tablet 2 mg PO BEDTIME 06/18/24 08/09/24 metformin 500 mg tablet,extended 500 mg PO TID 06/30/24 08/09/24 release 24 hr warfarin 2 mg tablet 2 mg PO DAILY@1800 10/01/24 10/29/24 warfarin 4 mg tablet 4 mg PO DAILY 10/01/24 10/29/24 Previous Rx's ?Medication ?Instructions ?Recorded pravastatin 80 mg tablet 80 mg PO BEDTIME #90 tabs 06/30/24 oxycodone-acetaminophen 5 mg-325 1 tab PO 5XD PRN Pain 30 days #150 10/18/24 mg tablet tabs cefuroxime axetil 500 mg tablet 500 mg PO BID 7 days #14 tabs 11/12/24 doxycycline monohydrate 100 mg 100 mg PO BID 7 days #14 caps 11/12/24 capsule Allergies Allergy/AdvReac Type Severity Reaction Status Date / Time Penicillins (PENICILLINS) Allergy Intermediate rash- Verified 11/12/24 08:48 STATES BAD RXN CHILD Review of Systems Review of Systems: Yes all other systems are reviewed and are negative [facility] Past Medical History Medical History Chronic pain syndrome Diabetic foot ulcer MSSA bacteremia Foot ulcer, right Ambulates with cane Cochlear implant in place Type 2 diabetes mellitus with unspecified complications Essential hypertension Persistent atrial fibrillation Osteoarthritis of left knee Deafness in left ear JUDIE (obstructive sleep apnea) Osteoarthritis Anemia Venous stasis Hard of hearing Obesity GERD (gastroesophageal reflux disease) BPH (benign prostatic hyperplasia) Diabetes Peripheral edema Atrial fibrillation COPD (chronic obstructive pulmonary disease) Chronic a-fib Surgical History History of umbilical hernia repair (02/18/24) Hx of total knee arthroplasty History of amputation of toe Hx of total shoulder replacement Hx of colonoscopy (~11/01/22) History of bilateral hip replacements Uses cochlear implant Family History Family History Father No problems noted. Mother Stroke Social History Social History Household Members: Spouse Housing: House Are you a primary child care centre director to a significant other at home: No Do you presently have visiting nurse or other home services: No Alcohol intake: former Patient Tobacco Use Status: Former Tobacco user Tobacco use type: Cigarette e-Cigarette/Vaping Use: Never Used Second Hand Smoke Exposure: No Advance Directives Date on File: 12/31/19 service: No 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al status: retired 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 Cognitive needs: No Hearing needs: Yes (left ear) Vision needs: Yes (reading glasses) Physical Exam ED Vital Signs: Vital Signs - 24 hr 11/12/24 08:45 11/12/24 12:16 Temperature 98.9 F 98.9 F Pulse Rate 86 86 Respiratory Rate 18 18 Blood Pressure 117/64 117/64 Pulse Oximetry 97 97 Oxygen Delivery Method Room Air Room Air BMI result Body Mass Index 39.5 Const Other: the patient is awake and alert. He is pleasant cooperative. He does not appear in acute distress. He is an older man who looks somewhat chronically ill. He does not appear obviously acutely ill. HENMT Other: The face is symmetrical. Mucous membranes moist. Eyes General: appearance normal, both eyes and all related structures Neck Neck: Yes normal visual inspection and Yes full ROM Resp Effort & Inspection: normal respiratory effort Auscultation: clear to auscultation bilaterally Cardio Rate: regular rate Rhythm: regular rhythm Heart sounds: S1 normal heart sound present and S2 normal heart sound present GI Other: Abdomen is soft and nontender Skin Other: there are skin changes to the skin of the right lower leg between the ankle and the knee. The skin appears a rohan red and maybe slightly warm but not a grossly warm. The skin blanches. The skin at the level of the ankle and the foot does not look red. There is significant skin abnormality on the plantar aspect of the foot where there is an area of swelling in the midfoot. In the center of the area of swelling is an ulcer about 1 cm across. The skin around the ulcer is not erythematous and there is no purulence or drainage. Neuro Other: The patient is very hard of hearing. He reads lips. He is awake and alert with normal mental status. Other than his difficulty hearing his cranial nerves seem intact. He has intact strength in his extremities. He has diminished sensation in the feet. Extrem Other: The patient has a brownish erythematous discoloration to the skin of the right lower leg. This does not extend into the ankle or foot. There was an area of swelling in the plantar aspect of the midfoot with an open wound about 1 cm across. There was no erythema to the plantar aspect of the foot or the dorsal aspect of the foot. Good pulses in the feet. Medications Administered Discontinued Medications Generic Name Dose Route Start Last Admin Trade Name Freq PRN Reason Stop Dose Admin Cefuroxime Axetil 500 mg 11/12/24 11:31 11/12/24 12:09 Cefuroxime Axetil 500 Mg Tablet PO 11/12/24 11:32 500 mg ONCE ONE Administration Doxycycline Monohydrate 100 mg 11/12/24 11:31 11/12/24 12:09 Doxycycline Monohydrate 100 Mg Capsule PO 11/12/24 11:32 100 mg ONCE ONE Administration Medical Decision Making Medical Decision Making [facility] Narrative: The patient is a type 2 diabetic whose was concerned he might have a cellulitis to the skin of his right lower leg. He also has an ulcer on the plantar aspect of his foot. He goes frequently to the wound clinic. He is afebrile and does not seem toxic. Labs including white count, differential, ESR, and CRP are not very remarkable. An x-ray Of the foot does not show any bony destruction. Cassy in question is whether the skin changes to the lower leg represent a cellulitis or whether they are more likely to be worsening chronic venous stasis changes. I am not entirely convinced this is a case of cellulitis but the patient's feels that there is an acute change to the appearance of the skin and therefore the patient will be started on antibiotics with doxycycline and cefuroxime. The patient does not appear ill enough to require hospitalization. He does not wish to be hospitalized. The patient and the both seemed comfortable with the plan to go home on antibiotics. They should follow up with wound clinic next week. Lab Data 11/12/24 09:16 11/12/24 09:16 Labs: Lab Results 11/12/24 11/12/24 Range/Units 09:16 12:11 WBC 8.7 (4.8-10.8) X10*3/uL RBC 3.98 L (4.60-5.80) X10*6/uL Hgb 12.7 L (14.0-18.0) g/dl Hct 37.8 L (42.0-52.0) % MCV 95.0 (80.0-98.0) fL MCH 31.9 (27.0-33.0) pg MCHC 33.6 (31.0-36.0) g/dl RDW 13.1 (11.0-16.0) % Plt Count 157 L (160-400) X10*3/uL MPV 10.1 (9.4-12.4) fL Immature Gran % (Auto) 0.5 H (0.0-0.4) % Neut % (Auto) 63.6 (45-73) % Lymph % (Auto) 16.5 L (20-40) % [place] % (Auto) 13.9 H (2-11) % Eos % (Auto) 5.2 H (0-4) % Baso % (Auto) 0.3 (0-2) % Lymph # (Auto) 1.4 (1.2-4.9) X10*3/uL [place] # (Auto) 1.2 (0.1-1.2) X10*3/uL Eos # (Auto) 0.5 H (0.0-0.4) X10*3/uL Baso # (Auto) 0.0 (0.0-0.2) X10*3/uL Abs Immat Gran (auto) 0.04 H (0.00-0.03) X10*3/uL Absolute Neuts (auto) 5.5 (2.0-8.3) x10*3/uL Absolute Nucleated RBC 0.000 (0.0-0.012) X10*3/uL Nucleated RBC % (auto) 0.0 (0.0-0.2) /100WBC ESR 25 H (0-15) MM/HR PT 33.7 H D (10.9-12.4) SEC INR 2.9 H (0.9-1.1) Sodium 142 (135-145) mmol/L Potassium 4.2 (3.3-5.1) mmol/L Chloride 104 (96-108) mmol/L Carbon Dioxide 29 (22-29) mmol/L Anion Gap 13 (12-20) BUN 25 H (9-16) mg/dL Creatinine 1.09 (0.5-1.4) mg/dL Estim Creat Clear Calc 76.4 Estimated GFR > 60 Random Glucose 232 H (60-115) mg/dL Calcium 9.0 (8.4-10.2) mg/dL Total Bilirubin 0.5 (0.0-1.0) mg/dL AST 25 (5-37) U/L ALT 13 (0-40) U/L Alkaline Phosphatase 71 (39-117) U/L C-Reactive Protein 8.34 H (< or = 0.50) mg/dL Total Protein 6.9 (6.5-8.0) g/dL Albumin 4.0 (3.5-5.0) g/dL Urine Color Yellow Urine Appearance Clear Urine pH 6.5 (5.0-9.0) Ur Specific Earp <= 1.005 (1.005-1.025) Urine Protein Negative (Neg-Trace) mg/dL Urine Glucose (UA) Negative (Negative) mg/dL Urine Ketones Negative (Negative) mg/dL Urine Blood Negative (Negative) Urine Nitrite Negative (Negative) Ur Leukocyte Esterase Trace H (Negative) Urine RBC 0-2 (0-2) /HPF Urine WBC 0-5 (0-5) /HPF Ur Squamous Epith Cells 0-2 (0-2) /HPF Urine Bacteria None Seen (None Seen) Hyaline Casts 0-2 (0-2) /LPF Discharge Plan Discharge Clinical Impression: Cellulitis of right lower leg Patient Disposition: Home, Self-Care Additional Instructions: I am not certain that the color changes to the right lower leg represent cellulitis. It is possible that the skin changes of the right lower leg might be progression of a condition called ?venous stasis dermatitis. If that is the case these skin changes will be fairly permanent. Nevertheless I do not think it is unreasonable to try a course of antibiotics at this point. Therefore please take the 2 antibiotics prescribed. Both of these antibiotics should be taken 2 times a day, approximately every 12 hours. Try to keep the right leg elevated. Please follow up with the wound clinic as scheduled on Friday for further recommendations. Also follow up with your regular doctor. Return to the emergency room if significantly worse. Prescriptions: New doxycycline monohydrate 100 mg capsule 100 mg PO BID 7 Days Qty: 14 0RF cefuroxime axetil 500 mg tablet 500 mg PO BID 7 Days Qty: 14 0RF No Action pravastatin 80 mg tablet 80 mg PO BEDTIME Qty: 90 1RF oxycodone-acetaminophen 5-325 mg tablet 1 tab PO 5XD PRN (Reason: Pain) 30 Days Qty: 150 0RF tamsulosin 0.4 mg capsule 0.4 mg PO DAILY@1700 carvedilol 12.5 mg tablet 12.5 mg PO DAILY glipizide 5 mg tablet extended release 24hr 10 mg PO BID metolazone 2.5 mg tablet 2.5 mg PO SA@0900 furosemide 80 mg Tablet 80 mg PO MOWEFR@0900 ferrous sulfate [iron] 325 mg (65 mg iron) Tablet 325 mg PO DAILY metformin 500 mg tablet extended release 24 hr 500 mg PO TID cholecalciferol (vitamin D3) 25 mcg (1,000 unit) capsule 50 mcg PO DAILY@1600 cayhcyblscnd-actfmeme-sdqxfe Tablet 1 tab PO DAILY (DME) blood sugar diagnostic Strip See Rx Instructions .ROUTE .MEDSUPPLY Qty: 10 Rx Instructions: As directed tizanidine 2 mg tablet 2 mg PO BEDTIME warfarin 4 mg tablet 4 mg PO DAILY Protocol: Dose Management Condition: Friday (Week One) Dose/Route: 6 mg Instruction: 1 x 2 mg tablet, 1 x 4 mg tablet Condition: Friday Dose/Route: 6 mg Instruction: 1 x 2 mg tablet, 1 x 4 mg tablet Condition: Friday Dose/Route: 6 mg Instruction: 1 x 2 mg tablet, 1 x 4 mg tablet Condition: Friday Dose/Route: 6 mg Instruction: 1 x 2 mg tablet, 1 x 4 mg tablet Condition: Dose/Route: 6 mg Instruction: 1 x 2 mg tablet, 1 x 4 mg tablet Condition: Friday Dose/Route: 6 mg Instruction: 1 x 2 mg tablet, 1 x 4 mg tablet Condition: Friday Dose/Route: 6 mg Instruction: 1 x 2 mg tablet, 1 x 4 mg tablet Condition: Friday (Week Two) Dose/Route: 6 mg Instruction: 1 x 2 mg tablet, 1 x 4 mg tablet Condition: Friday Dose/Route: 6 mg Instruction: 1 x 2 mg tablet, 1 x 4 mg tablet Condition: Friday Dose/Route: 6 mg Instruction: 1 x 2 mg tablet, 1 x 4 mg tablet Condition: Friday Dose/Route: 6 mg Instruction: 1 x 2 mg tablet, 1 x 4 mg tablet Condition: Dose/Route: 6 mg Instruction: 1 x 2 mg tablet, 1 x 4 mg tablet Condition: Friday Dose/Route: 6 mg Instruction: 1 x 2 mg tablet, 1 x 4 mg tablet Condition: Friday Dose/Route: 6 mg Instruction: 1 x 2 mg tablet, 1 x 4 mg tablet Protocol Text: Adjustment Start Date: Friday10/29/24 INR Value: Pending INR Date: 10/29/24 Recheck Date: 11/26/24 Additional Instructions: cont reg dosing warfarin 2 mg tablet 2 mg PO DAILY@1800 Protocol: Dose Management Condition: Friday (Week One) Dose/Route: 6 mg Instruction: 1 x 2 mg tablet, 1 x 4 mg tablet Condition: Friday Dose/Route: 6 mg Instruction: 1 x 2 mg tablet, 1 x 4 mg tablet Condition: Friday Dose/Route: 6 mg Instruction: 1 x 2 mg tablet, 1 x 4 mg tablet Condition: Friday Dose/Route: 6 mg Instruction: 1 x 2 mg tablet, 1 x 4 mg tablet Condition: Dose/Route: 6 mg Instruction: 1 x 2 mg tablet, 1 x 4 mg tablet Condition: Friday Dose/Route: 6 mg Instruction: 1 x 2 mg tablet, 1 x 4 mg tablet Condition: Friday Dose/Route: 6 mg Instruction: 1 x 2 mg tablet, 1 x 4 mg tablet Condition: Friday (Week Two) Dose/Route: 6 mg Instruction: 1 x 2 mg tablet, 1 x 4 mg tablet Condition: Friday Dose/Route: 6 mg Instruction: 1 x 2 mg tablet, 1 x 4 mg tablet Condition: Friday Dose/Route: 6 mg Instruction: 1 x 2 mg tablet, 1 x 4 mg tablet Condition: Friday Dose/Route: 6 mg Instruction: 1 x 2 mg tablet, 1 x 4 mg tablet Condition: Dose/Route: 6 mg Instruction: 1 x 2 mg tablet, 1 x 4 mg tablet Condition: Friday Dose/Route: 6 mg Instruction: 1 x 2 mg tablet, 1 x 4 mg tablet Condition: Friday Dose/Route: 6 mg Instruction: 1 x 2 mg tablet, 1 x 4 mg tablet Protocol Text: Adjustment Start Date: Friday10/29/24 INR Value: Pending INR Date: 10/29/24 Recheck Date: 11/26/24 Additional Instructions: cont reg dosing Rx Instructions: [id number] Referrals: [facility] [Provider Group] Young Bunn MD [Physician, Internal Medicine] Interventions: ED Discharge Assessment Last Done: 11/12/24 12:16 Discharge Date/Time: 11/12/24 12:16 Print Language: Vietnamese
--- NOTE | 2024-11-12 09:53 | PC.NURSE ---
Dr. Beaver at bedside speaking with the patient and his family. 20g IV Access established to left AC. Labs drawn and sent for analysis, results pending.
[2024-11-12 12:16] VITALS: BP 117/64; PULSE 86; RESP 18; TEMP 37.2; O2SAT 97
[2024-11-12 12:39] LABS: Appearance Urine Clear; Glucose Urine UA Negative (Negative); PH 6.5 (5.0-9.0); Specific Gravity - Urine <= 1.005 (1.005-1.025); UMIC TRIGGER UACC YES
== END 2024-11-12 12:16 | disposition home or self-care (01) ==
PROVIDERS: Emergency Provider Emergency Medicine
DX: L03.115 Cellulitis of right lower limb (principal); M79.671 Pain in right foot; Z79.899 Other long term (current) drug therapy
CPT/HCPCS: 36415; 73620; 80053; 81001; 85025; 85610; 85652; 86140; 99283

== ENCOUNTER → 2024-11-12 09:57 | Outpatient (BNV) | payer MEDICARE, SELFPAY | PROVIDERS: Emergency Provider Emergency Medicine; Visit Provider Radiology Diagnostic Radiology | DX: L03.115 Cellulitis of right lower limb (principal) | CPT/HCPCS: 73620 ==

== ENCOUNTER 2024-11-18 14:31 | Outpatient (AMB) | payer MEDICARE, SELFPAY ==
--- OUTSIDE RECORDS SUMMARY | 2024-02-23 04:00 | XMS_ITS ---
Author Organization [facility] Address [address] [place] [phone] Care Team Providers Care Assistant Professor Of Business Name Role Phone Young Bunn Primary Care Provider Ronel Leon [phone] Encounters Encounter Location Date Provider Diagnosis [address] [address] 02/23/2024 Ronel Leon Plan Of Treatment Next Appt Details Provider Name:Ronel Leon , 03/17/2025 08:30:00 AM, [address] [place], [address], Progress Notes * Leonardo GRIFFINDOB:1950 (74 yo M)Acc No.[id number]:02/23/2024 Progress Note Patient: Holli HERNANDEZLeonardo Provider: Rashard Leon DPM :1950 A ge:73 Y S ex:Male Date:02/23/2024 Address:[address] [place] [address] [place], [id number] Pcp:Young Bunn Subjective: * Chief Complaints: * * Medical History: Objective: * Vitals: Assessment: Plan: * Treatment: * Images: * The named appointment provid er may or may not be the originator of this progress note, and it is not deemed complete until electronically signed by the appointment provider. Sign off status: Pending * Provider: Rashard Leon, JARROD Date: 1 04/25/2023 Generated for René temple/Melissa/Patel on: 0 11/18/2024 06:14 PM EDT
--- OUTSIDE RECORDS SUMMARY | 2024-07-29 05:00 | XMS_ITS ---
Author Organization [facility] Address [address] [place] [address] Care Team Providers Care Early Childhood Assistant Name Role Phone Young Bunn Primary Care Provider Ronel Leon [phone] Encounters Encounter Location Date Provider Diagnosis [address] [address] 07/29/2024 Ronel Leon Plan Of Treatment Next Appt Details Provider Name:Ronel Leon , 03/17/2025 08:30:00 AM, [address] [place], [address], Progress Notes * Leonardo GRIFFINDOB:1950 (74 yo M)Acc No.[id number]:07/29/2024 Progress Note Patient: Holli HERNANDEZLeonardo Provider: Rashard Leon DPM :1950 A ge:74 Y S ex:Male Date:07/29/2024 Address:[address] [place] [address] [place], [id number] Pcp:Young Bunn Subjective: * Chief Complaints: * * Medical History: Objective: * Vitals: Assessment: Plan: * Treatment: * Images: * The named appointment provid er may or may not be the originator of this progress note, and it is not deemed complete until electronically signed by the appointment provider. Sign off status: Pending * Provider: Rashard Leon, JARROD Date: 0 07/29/2024 Generated for René temple/Melissa/Patel on: 0 11/18/2024 06:14 PM EDT
--- OUTSIDE RECORDS SUMMARY | 2024-10-25 07:15 | XMS_ITS ---
Author Organization [facility] Address [address] [place] [address] Care Team Providers Care Stave Inspector Name Role Phone Young Bunn Primary Care Provider [phone] Ronel Leon [phone] Encounters Encounter Location Date Provider Diagnosis [address] [address] 10/25/2024 Ronel Leon Plan Of Treatment Next Appt Details Provider Name:Ronel Leon , 03/17/2025 08:30:00 AM, [address] [place], [address], Progress Notes * Leonardo GRIFFINDOB:1950 (74 yo M)Acc No.[id number]:10/25/2024 Progress Note Patient: Holli HERNANDEZLeonardo Provider: Rashard Leon DPM :1950 A ge:74 Y S ex:Male Date:10/25/2024 Address:[address] [place] [address] [place], [phone] Pcp:Young Bunn Subjective: * Chief Complaints: * * Medical History: Objective: * Vitals: Assessment: Plan: * Treatment: * Images: * The named appointment provid er may or may not be the originator of this progress note, and it is not deemed complete until electronically signed by the appointment provider. Sign off status: Pending * Provider: Rashard Leon, JARROD Date: 0 10/25/2024 Generated for René temple/Melissa/Patel on: 0 11/18/2024 06:14 PM EDT
--- NOTE | 2024-11-18 14:43 | A.OFFPC_ITS ---
Vital Signs 11/18/24 14:50 Height 5 ft 8 in Weight 260 lb BMI 39.5 BMI Reason not done Patient refused/unable BP 158/68 H Blood Pressure Location Lt brachial Position Sitting Respiration 18 Pulse 85 Pulse Source Pulse Oximeter Temp 97.7 F Temp Source Temporal Artery Scan Pulse Oximetry (%) 98 Oxygen Delivery Method Room Air Intake Visit Reasons: medications Hand Woodworking Sander Required: No Accompanied by: Self / Same As Patient Allergies Penicillins (PENICILLINS) Allergy (Intermediate, Verified 11/18/24 14:43) rash- STATES BAD RXN CHILD Tobacco use date assessed: 06/30/24 Dental Screening Dental Screen Date: 06/30/24 HPI HPI Comments History of Present Illness Details The patient is a 74-year-old male presenting with a request for medication refills on oxycodone. He has been taking oxycodone for pain managemen t, consuming five tablets daily for an unspecified number of years. The patient reports never having had a problem with the medication in the past, despite the high dosage he currently takes. However, he is informed that the current dose is deemed unsafe at his age. There is concern over opioid dependence as he has been using this medication extensively over a prolonged period. The patient expresses apprehension about having his dosage reduced and shows reluctance towards engaging with pain management services, which he has attended in the past without satisfactory outcomes. He articulates that smoking cannabis has been helpful for his pain and appetite. His resistance to reducing his oxycodone dosage appears grounded in fear of compromising his ability to function due to persistent pain and longstanding dependence on the medication. Medical History: - Opioid Dependence Medications: - Oxycodone, 5 tablets per day, for pain management [facility] Medical History Chronic pain syndrome Diabetic foot ulcer MSSA bacteremia Foot ulcer, right Ambulates with cane Cochlear implant in place Type 2 diabetes mellitus with unspecified complications Essential hypertension Persistent atrial fibrillation Osteoarthritis of left knee Deafness in left ear JUDIE (obstructive sleep apnea) Osteoarthritis Anemia Venous stasis Hard of hearing Obesity GERD (gastroesophageal reflux disease) BPH (benign prostatic hyperplasia) Diabetes Peripheral edema Atrial fibrillation COPD (chronic obstructive pulmonary disease) Chronic a-fib Surgical History History of umbilical hernia repair (02/18/24) Hx of total knee arthroplasty History of amputation of toe Hx of total shoulder replacement Hx of colonoscopy (~11/01/22) History of bilateral hip replacements Uses cochlear implant Family History Father No problems noted. Mother Stroke Social History Household Members: Spouse Housing: House Are you a primary daycare manager to a significant other at home: No Do you presently have visiting nurse or other home services: No Alcohol intake: former Patient Tobacco Use Status: Former Tobacco user Tobacco use type: Cigarette e-Cigarette/Vaping Use: Never Used Second Hand Smoke Exposure: No Advance Directives Date on File: 12/31/19 service: No 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al status: retired 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 Cognitive needs: No Hearing needs: Yes (left ear) Vision needs: Yes (reading glasses) Questionnaire Thrive Questionnaire Date Thrive assessed: 06/30/24 BRITTNEY-7 AMB Questionnaire BRITTNEY-7 Date BRITTNEY - 7 assessed: 09/29/24 Source: Developed by Drs. Jose Antonio Ferris, Quita Ceballos, Thierry Beckham and colleagues, with an educational nela from [employer]. Review of Systems Const Details: - Neurological: Reports effective pain relief with current oxycodone use. - Psychological: Reports anxiety related to changes in medication regimen. All systems reviewed & are unremarkable except as reviewed in HPI and above Physical exam (Primary Care) Vital Signs: Last Vital Signs Temp 97.7 F 11/18/24 14:50 Pulse 85 11/18/24 14:50 Resp 18 11/18/24 14:50 BP 158/68 H 11/18/24 14:50 Pulse Ox 98 11/18/24 14:50 Oxygen Delivery Method Room Air 11/18/24 14:50 BMI result Body Mass Index 39.5 Tobacco/Smoking Status: Tobacco use Status Tobacco use date assessed 06/30/24 11/18/24 14:45 Patient Tobacco Use Status Former Tobacco user 11/18/24 14:45 Tobacco use type Cigarette 11/18/24 14:45 e-Cigarette/Vaping Use Never Used 11/18/24 14:45 Thrive Assessment: Date of Thrive Assessment Date Thrive assessed 04/23/25 09/11/25 14:45 Const Other: General: Alert and oriented, Well nourished, No acute distress. Eye: Vision Normaly HENT: Normocephalic, Atraumatic, Nomral Hearing Respiratory: Respirations are non-labored. Musculoskeletal: Diffuse OA of hands, with boot on right leg Neurologic: Alert, Oriented, Normal sensory, Normal motor function, Psychiatric: Aggressive, Appropriate mood & affect, Normal judgment. Coding Level of Care Code Est Pt Level 1 (80369) Diagnoses Primary osteoarthritis of both hands M19.041; M19.042 Osteoarthritis type: primary Assessment & Plan Assessment & Plan (1) Osteoarthritis of hands, bilateral: Comment: Been on extensive course of oxycodone 5 mg 5 times a day for multiple years. During explained to patient the goal to wean him off oxycodone gradually with past initially drop him down to 4 times a day, patient was initially resistant saying that he would not like to do that he has been stable on 5 mg then at his urine used to be tested and everything has to be normal and the previous physicians would always give him a script. I explained to him the dependence and the long-term effects of medication has not the body he became irate and eventually express that if he does not get the medications he will do something crazy. At this time provider separate to the room and security was called. A script was provided the patient for 1 month informed that he could find another provider to provide him the rest of his care has no further scripts will be refilled to the clinic. Code(s): M19.041 - Primary osteoarthritis, right hand; M19.042 - Primary osteoarthritis, left hand Category: Medical Qualifiers: Osteoarthritis type: primary Qualified Code(s): M19.041 - Primary osteoarthritis, right hand; M19.042 - Primary osteoarthritis, left hand Plan One month script provided Medications: Changed From oxycodone-acetaminophen 5-325 mg 1 tab PO 5XD 30 days PRN 150 tabs 0RF Pain To oxycodone-acetaminophen 5-325 mg 1 tab PO Q4-6H PRN 150 tabs 0RF Pain 30 days
[2024-11-18 14:50] VITALS: BP 158/68; PULSE 85; RESP 18; TEMP 36.5; O2SAT 98; BMI 39.5
--- OUTSIDE RECORDS SUMMARY | 2024-11-18 18:14 | XMS_ITS | Patient Health Record ---
[facility] Address [address] [facility] [place] [address] Care Team Providers Care Medical Receptionist Name Role Phone Young Bunn Primary Care Provider Black, Ronel Unavailable [phone] Allergies Allergen (clinical drug ingredient) Drug/Non Drug [...] Polyneuropathy due to type 2 diabetes mellitus (335434490) Type 2 diabetes mellitus with diabetic polyneuropathy (E11.42) Active confirmed Problem Diabetic neuropathic arthropathy (276752884) Charcot foot due to diabetes mellitus (E11.610) Active confirmed Vital Signs Blood pressure diastolic 65 mm Hg 10/28/2024 Height 5ft8in in 10/28/2024 Blood pressure systolic 121 mm Hg 10/28/2024 Weight 245 lbs 10/28/2024 BMI 37.25 kg/m2 10/28/2024 Procedures Procedure Date Ordered Date Performed Result Body Sit e 86481-QFETWUO NAIL, 6 OR MORE 04/19/2024 N/A 50073-XGBE SKIN LESIONS, OVER 4 04/19/2024 N/A 61654-UFYXQGD NAIL, 6 OR MORE 10/28/2024 N/A 52653-LSVR SKIN LESIONS, OVER 4 10/28/2024 N/A Encounters Encounter Location Date Provider Diagnosis [address] [address] 04/19/2024 Ronel Black Type 2 diabetes mellitus with diabetic polyneuropathy E11.42 ; Charcot foot due to diabetes mellitus E11.610 ; Tinea unguium B35.1 ; Charcot gait R26.0 ; Skin ulcer of toe of right foot, limited to breakdown of skin L97.511 and Subungual contusion of toe of left foot, initial encounter S90.222A [address] [address] 10/28/2024 Ronel Black Type 2 diabetes mellitus with diabetic polyneuropathy E11.42 ; Charcot foot due to diabetes mellitus E11.610 ; Tinea unguium B35.1 and [facility]arcot gait R26.0 [facility] [address] [place] [address] 02/12/2024 Ronel Leon [facility] [address] [place] [address] 07/26/2024 Ronel Leon Assessments Encounter Date Diagnosis [...] Test Name Order Date Hemoglobin A1c 06/04/2018 27083-MNUJAQA NAIL, 6 OR MORE 10/28/2024 62336-OOBYMKM NAIL, 6 OR MORE 04/19/2024 66953-BQDFSUC NAIL, 6 OR MORE 12/05/2010 77203-NHBXARH NAIL, 6 OR MORE 02/06/2011 60723-MLRQHJK NAIL, 6 OR MORE 04/22/2011 21768-FAUCXVA NAIL, 6 OR MORE 07/15/2011 17087-IOCUMDJ NAIL, 6 OR MORE 09/25/2011 63733-ZPNPMQP NAIL, 6 OR MORE 10/28/2011 52431-JDFPNCX NAIL, 6 OR MORE 01/16/2012 48096-JPULNEI NAIL, 6 OR MORE 04/08/2012 45187-AVHYIQR NAIL, 6 OR MORE 06/24/2012 84130-WDOPNXV NAIL, 6 OR MORE 09/23/2012 19262-LIZAZVT NAIL, 6 OR MORE 12/28/2012 06603-AUUVMWV NAIL, 6 OR MORE 03/31/2013 31128-EQNGQCW NAIL, 6 OR MORE 06/14/2013 09841-NXRFBXI NAIL, 6 OR MORE 09/20/2013 95133-JPLHFLV NAIL, 6 OR MORE 12/22/2013 67689-ZNNNVDN NAIL, 6 OR MORE 03/21/2014 86923-NOBCFDV NAIL, 6 OR MORE 06/20/2014 97571-OIYHPAQ NAIL, 6 OR MORE 09/21/2014 94299-ZHPYMAN NAIL, 6 OR MORE 11/30/2014 14428-ISTFGNQ NAIL, 6 OR MORE 02/06/2015 88156-FAJYJCY NAIL, 6 OR MORE 05/01/2015 14326-ZZHSMEU NAIL, 6 OR MORE 07/10/2015 32568-TCVFCLR NAIL, 6 OR MORE 10/02/2015 88419-SSENKYH NAIL, 6 OR MORE 12/14/2015 41164-TMDSPTY NAIL, 6 OR MORE 02/22/2016 45465-QIBSELP NAIL, 6 OR MORE 05/30/2016 91717-UWCPYXU NAIL, 6 OR MORE 08/29/2016 05153-BLQZRGY NAIL, 6 OR MORE 11/28/2016 88157-TWTGQQG NAIL, 6 OR MORE 02/27/2017 94665-EUEBCRW NAIL, 6 OR MORE 05/29/2017 19961-ZELFGEK NAIL, 6 OR MORE 08/28/2017 79352-AEMFFXE NAIL, 6 OR MORE 03/12/2018 69656-JOVXXDJ NAIL, 6 OR MORE 11/27/2017 83588-LVHLOSV NAIL, 6 OR MORE 06/04/2018 39576-ARRYBIS NAIL, 6 OR MORE 07/12/2021 85655-LOXNWYV NAIL, 6 OR MORE 10/25/2021 17232-XCCDZTD NAIL, 6 OR MORE 02/07/2022 48380-BPVNIDZ NAIL, 6 OR MORE 06/13/2022 92828-MGUXEZB NAIL, 6 OR MORE 10/17/2022 41220-MWQKNOP NAIL, 6 OR MORE 02/17/2023 53692-BZJWDDJ NAIL, 6 OR MORE 06/19/2023 31860-PRELLCZ NAIL, 6 OR MORE 10/23/2023 45566-Eyxp Destruction, -14 02/17/2023 28888-Najc Destruction, -06/19/2023 19105-Sfye Destruction, -06/13/2022 42486-Nhir Destruction, -10/17/2022 29625-Pxufipcb Plate 07/12/2021 14714-Emdputoh Plate 10/25/2021 94062-Juhnyifb Plate 05/29/2017 28408-Fssbacny Plate 08/29/2016 94201-Wqshocmx Plate 11/30/2014 37226-Aysikfyv Plate 09/21/2014 92153-Rsljugmm Plate 06/14/2013 87691-Jfxnaxwp Plate 06/20/2014 55095-Eyorayqw Plate 03/21/2014 71438-Ouykhxgv Plate 12/22/2013 06525-Vrefuovk Plate 09/20/2013 99030- Debride <25 sq cm 09/20/2013 22836- Debride <25 sq cm 12/22/2013 34362- Debride <25 sq cm 06/14/2013 99739- Debride <25 sq cm 03/31/2013 23517- Debride <25 sq cm 03/21/2014 69853- Debride <25 sq cm 06/20/2014 76316- Debride <25 sq cm 09/21/2014 78853- Debride <25 sq cm 12/28/2012 17999- Debride <25 sq cm 09/23/2012 80684- Debride <25 sq cm 06/24/2012 79058- Debride <25 sq cm 04/08/2012 50990- Debride <25 sq cm 01/16/2012 99467- Debride <25 sq cm 10/28/2011 95880- Debride <25 sq cm 09/02/2011 83492- Debride <25 sq cm 09/25/2011 45231- Debride <25 sq cm 12/26/2010 64860- Debride <25 sq cm 02/22/2016 98146- Debride <25 sq cm 12/14/2015 23840- Debride <25 sq cm 10/02/2015 04111- Debride <25 sq cm 10/12/2015 56905- Debride <25 sq cm 10/06/2014 38682- Debride <25 sq cm 05/30/2016 56406- Debride <25 sq cm 02/27/2017 87584- Debride <25 sq cm 10/25/2021 10616- Debride <25 sq cm 02/07/2022 98367- Debride <25 sq cm 10/17/2022 12674-OQEVINE SKIN/TISSUE 03/12/2018 15965-THWFROR SKIN/TISSUE 06/04/2018 46045-JXHKPJI SKIN/TISSUE 11/27/2011 67402-EMNBJPJ SKIN/TISSUE 12/11/2011 51772-QUZQVNW SKIN/TISSUE 10/06/2014 41351 I&D ABSCESS- SIMPLE,SINGLE 015 94957 I&D ABSCESS- SIMPLE,SINGLE 011 63253 I&D ABSCESS- SIMPLE,SINGLE 015 30815-DCFI SKIN LESIONS, OVER 4 12/01/19 15 45403-DYLA SKIN LESIONS, OVER 4 02/07/20 15 52876-UUGA SKIN LESIONS, OVER 4 07/10/19 16 68238-ZCRD SKIN LESIONS, OVER 4 05/01/19 16 43686-ZFPA SKIN LESIONS, OVER 4 10/02/19 16 19803-QJWQ SKIN LESIONS, OVER 4 12/14/19 16 74289-QYJL SKIN LESIONS, OVER 4 02/22/20 16 58226-SEHZ SKIN LESIONS, OVER 4 02/28/20 17 99975-QWOS SKIN LESIONS, OVER 4 05/30/19 18 03423-PCHI SKIN LESIONS, OVER 4 08/29/19 18 87415-RIKH SKIN LESIONS, OVER 4 11/28/19 18 45350-YLAV SKIN LESIONS, OVER 4 05/31/19 17 35096-XFWC SKIN LESIONS, OVER 4 11/29/19 17 01144-OZWF SKIN LESIONS, OVER 4 06/05/19 19 33735-FSYD SKIN LESIONS, OVER 4 03/12/19 19 13533-KJOT SKIN LESIONS, OVER 4 10/18/19 23 65632-EXTA SKIN LESIONS, OVER 4 06/14/19 23 78042-NEPQ SKIN LESIONS, OVER 4 02/18/20 23 89041-GULB SKIN LESIONS, OVER 4 06/19/19 24 10981-JCYV SKIN LESIONS, OVER 4 04/19/19 25 79391-OBVC SKIN LESIONS, OVER 4 10/23/19 24 31541-QSYS SKIN LESIONS, OVER 4 12/06/19 11 88142-YUBU SKIN LESIONS, OVER 4 02/07/20 11 30827-WZJX SKIN LESIONS, OVER 4 07/15/19 12 46984-OTGZ SKIN LESIONS, OVER 4 04/22/19 12 21696-GOEC SKIN LESIONS, OVER 4 09/25/19 12 37938-DRUT SKIN LESIONS, OVER 4 10/28/19 12 53026-CDOT SKIN LESIONS, OVER 4 09/24/19 13 09684-GEYB SKIN LESIONS, OVER 4 12/29/19 13 70195-GIEX SKIN LESIONS, OVER 4 01/16/20 12 09396-VLEE SKIN LESIONS, OVER 4 04/08/19 13 01142-SLBV SKIN LESIONS, OVER 4 06/25/19 13 39553-FLTF SKIN LESIONS, OVER 4 09/22/19 15 63720-QQGV SKIN LESIONS, OVER 4 03/21/19 15 05186-SBNI SKIN LESIONS, OVER 4 06/21/19 15 03341-QUFM SKIN LESIONS, OVER 4 03/31/19 14 35507-ZDWO SKIN LESIONS, OVER 4 06/15/19 14 25154-WGQM SKIN LESIONS, OVER 4 12/23/19 14 07323-HOBV SKIN LESIONS, OVER 4 09/21/19 14 95478-IIPB SKIN LESIONS, OVER 4 10/29/19 25 40739-XQQR SKIN LESIONS, 2 TO 4 12/23/19 14 63170-FWWT SKIN LESIONS, 2 TO 4 06/15/19 14 17949-IJEB SKIN LESIONS, 2 TO 4 03/31/19 14 01462-EKTK SKIN LESIONS, 2 TO 4 06/21/19 15 03413-IUJK SKIN LESIONS, 2 TO 4 03/21/19 15 70648-WUHM SKIN LESIONS, 2 TO 4 12/29/19 13 63968-QCYJ SKIN LESIONS, 2 TO 4 09/24/19 13 92929-YURV SKIN LESIONS, 2 TO 4 07/13/19 22 38512-FCGN SKIN LESIONS, 2 TO 4 02/08/20 22 48095-MFNW SKIN LESIONS, 2 TO 4 10/26/19 22 28943-QQXQ SKIN LESIONS, 2 TO 4 08/30/19 17 19297-Ppvx. Subungual Hematoma 2 05626-Reoa. Subungual Hematoma 2 Next Appt Details Provider Name:Ronel Leon , 03/17/2025 08:30:00 AM, [address] [facility], [place], [address], Insurance Providers Payer Name Payer Address Payer Phone Subscriber Number Group Number Insured Name Patient Relationship to Insured Coverage Start Date Coverage End Date Medicare National Govt [employer] [facility] [address] [place] [address] [id number] Leonardo Pang Self - patient is the insured [employer] [address] [place] [address] [phone] [id number] Leonardo Pang Self - patient is the [...] Reason Date(Month/Year) [facility]- [facility] on foot 08/28/23 [facility] for a-fib 10/23/19 12
--- OUTSIDE RECORDS SUMMARY | 2024-11-18 18:14 | XMS_ITS | Clinical Summary ---
Author Organization [facility] Address [address] [place], [place] [id number] Phone Care Team Providers Care Raiser Helper Name Role Phone Darien Bruner MD Primary [...] [place] [address] MEDICARE PART A [place] [id number] [employer] MEDEX SUPPLEMENT [facility] [place] [address] MED[place]ARE PART A & B [facility] [place] [address] MEDICARE PART A & B [employer] MEDEX SUPPLEMENT [place] [address] MEDICARE PART A & B [employer] MEDEX SUPPLEMENT [employer] [place] [address] MEDICARE PART A & B [employer] CR[employer] MEDEX SUPPLEMENT [address] MEDICARE PART A & B [employer] [place] [address] MEDICARE PART A & B Member Subscriber Plan / Payer (Ef fective 2021-) Name:Leonardo Pang Member ID:[id number] Relation to Subscriber:Self Name:Leonardo Pang Subscriber ID:[id number] Payer ID:[id number] Group ID:Not on file Type:Medicare Address: [place] [address] [employer] MEDEX SUPPLEMENT MEDICARE PART A & B [employer] SUPPLEMENT MEDICARE PART A & B [employer] CROSS MEDEX SUPPLEMENT Care Teams Raiser Helper Relationship Specialty Start Date End Date Darien Bruner MD [address] [place] [address] [place] [address] PCP - General Internal Medicine 05/31/21 Additional Source Comments The information contained in this document represents components of the legal health record. It is not the complete legal health record.[facility]
--- OUTSIDE RECORDS SUMMARY | 2024-11-18 18:15 | XMS_ITS | Patient Health Record ---
Author Organization 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
--- OUTSIDE RECORDS SUMMARY | 2024-11-18 18:15 | XMS_ITS | Clinical Summary ---
Author Organization [facility] Address [address] [place] [address] Care Team Providers Care Flaker Tender Name Role Phone Darien Bruner MD Primary Care Provider [phone] Allergies Active Allergy Reactions Criticality Noted Date Comments Penicillins Unknown/Patient and Family Unable to Define Medium 02/10/2024 Medications SUPPLY DME MISCIndications :Pain in right ankle and joints of right foot RT ANKLE / Foot [facility] Boot Dx: Diabetic Neuropathy, RT Plantar foot [...] topic Insurance MEDICARE PART A & B [place] [id number] Care Teams Flaker Tender Relationship Specialty Start Date End Date Darien Bruner MD [address] [place] [address] [place] [address] PCP - General 01/19/24
== END 2024-11-18 15:33 | disposition home or self-care (01) ==
LOC: HO.HMCHD 14:32
PROVIDERS: Visit Provider Student in an Organized Health Care Education/Training Program
DX: M19.041 Primary osteoarthritis, right hand (principal); M19.042 Primary osteoarthritis, left hand

== ENCOUNTER → 2024-11-18 14:31 | Outpatient (BNVA) | payer MEDICARE, SELFPAY | PROVIDERS: Visit Provider Student in an Organized Health Care Education/Training Program | DX: M19.041 Primary osteoarthritis, right hand (principal); M19.042 Primary osteoarthritis, left hand; Z79.891 Long term (current) use of opiate analgesic | CPT/HCPCS: 99212 ==

== ENCOUNTER 2024-11-26 07:56 | Outpatient (AMB) | payer MEDICARE, SELFPAY ==
--- OUTSIDE RECORDS SUMMARY | 2024-11-23 08:45 | XMS_ITS | Encounter Summary ---
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 * Consultation (Routine) - Pending Review Specialty Diagnoses / Procedures Referred By Funmilayo oneill Referred To Contact Podiatry / Orthopaedic Surgery Diagnoses Charcot arthropathy of forefoot [address] [address] Phone: tel: [place] [facility] [address] [address] Phone: tel: fax: Referral ID Status Reason Start Date Expiration Date Visits Requested Visits Authorized [id number] Pending Review Specialty Services Required 11/17/2024 11/17/2025 1 1 Encounter Details Date Type Department Care Team (Late st Contact Info) Description 11/23/2024 8:45 AM EDT Consult Orthopedic Surgery - [address] [address] [place] [facility] [address] [address] Charcot arthropathy of forefoot (Primary Dx); Acquired rocker bottom foot of right lower extremity; Exostosis of right foot; Equinus contracture of right ankle; Midfoot ulceration, right, with fat layer exposed (CMS/HCC V24, CMS/HCC V28) Social History Tobacco Use Types Packs/Day Years Used Date Smoking Tobacco: Never Assessed Sex and Gender Information Value Date Recorded Sex Assigned at Not on file Legal Sex Male 11:40 AM EDT Gender Identity Not on file Sexual Orientation Not on file documented as of this encounter Progress Notes * [place] [facility] - 11/23/2024 8:45 AM EDT Referring MD: [place] [facility] Last PCP visit: 10/01/2024 IDENTIFIER: Bird is a 74 y.o. year old male who presents for consultation. CC: Bilateral foot deformity HPI: 74-year-old male presents office with history of diabetes and Charcot deformities to bilateral feet. Patient notes that he has been using a [place] walker and going to wound care for a wound to the plantar aspect of the right foot. Patient notes that he is currently getting wound care weekly. Patient d enies any recent infection. Patient does use a [place] walker and a special shoe for the left foot. Patient would like to be evaluated for possible surgical options. ROS: GENERAL: Pt denies nausea, fever, vomiting, chills, or shortness of breath. Pt in NAD. CARDIOLOGY: pt denies chest pain, palpitations LUNGS: pt denies shortness of breath MUSCULOSKELETAL: See HPI, otherwise no joint pain or swelling, back pain, or muscle pain. SKIN: see HPI, otherwise no lesions, rash or itching NEURO: No persistent headache, weakness or numbness The remainder of the review of systems is noncontributory PAST MEDICAL HISTORY: There is no problem list on file for this patient. SOCIAL HISTORY: Social History Tobacco Use Smoking status: Not on file Smokeless tobacco: Not on file Substance Use Topics Alcohol use: Not on file ACTIVE MEDICATIONS: No outpatient medications have been marked as taking for the 11/23/24 encounter (Consult) with [place] [facility]. ALLERGIES: Penicillins PHYSICAL EXAM: There were no vitals taken for this visit. PODIATRIC EXAMINATION: GENERAL: Patient appears well nourished, with NAD. VASCULAR: Dorsalis pedis pulses are 2/4 bilaterally and Posterior tibial pulses are 2/4 bilaterally. Capillary filling time within normal limits the digits. No pallor on elevation or rubor on dependency. Positive hair growth. No varicosities. Denies rest pain or claudication pain. NEUROLOGICAL: Sharp/dull sensation intact, protective sensation intact 10/10 with 5.07 semmes kamryn bilaterally, vibratory sensation with tuning fork intact to the tibial tuberosity. ORTHOPEDIC: Good muscle strength 5/5 of all flexors and extensors. Dorsi flexion of ankle ,10 degrees, plantar flexion WNL. No muscle atrophy. Notable equinus contracture to the right lower extremitywith the hindfoot only extending to 10 degrees plantarflexion. Arthritic changes of the midfoot with palpable exostosis from Charcot arthropathy. Visibly dislocated cuboid plantarly. Rocker-bottom bhavani t. Left foot shows the same slight dislocation rocker-bottom positioning to the lateral portion of the plantar left foot DERMATOLOGICAL:.Ulceration is 1 cm in diameter to the fibrogranular subcutaneous base with regular hyperkeratotic rim. Upon debridement there was good bleeding tissue. BIOMECHANICS: STJ ROM wnl, MTJ ROM wnl, 1st MPJ ROM wnl. IMAGING: Notable dorsal dislocation of the midtarsal joint with severe arthritic change to midtarsal joints with dislocation plantarly of the cuboid to both feet right greater than left. Fibular deviation of digits. Loss of congruency of the fifth metatarsal base on the cuboid. Severe contracture of digits. IMPRESSION: 1. Charcot arthropathy of forefoot 2. Acquired rocker bottom foot of right lower extremity 3. Exostosis of right foot 4. Equinus contracture of right ankle 5. Midfoot ulceration, right, with fat layer exposed ([facility] V24, [facility] V28) PLAN: Pt was seen and examined, history reviewed. Patient was educated on the findings of equinus and increasing the midtarsal plantarflexion around the dorsal dislocation of the forefoot. Patient understands that there is retraction and plantarflexion of the base of the fifth metatarsal with the cuboid causing ulcerative pressure to the lateral column of the midfoot of the right foot. Patient was educated on Charcot reconstruction versus exostectomy of the bony prominence. Patient understands that surgical removal of the bony prominence to the plantar lateral aspect of the right foot would have quicker recovery than a Charcot reconstructionthough it does lend itself to possible transfer lesion to other bony prominences of the [facility] due to dislocation of the midfoot. Patient was educated that he would require Achilles tendon lengthening at the time of exostectomy. Patient understands the postoperative weightbearing restrictions would include nonweightbearing for 4 weeks followed by progressive weightbearing in the [place] b oot. Patient understands that no guarantees can be given as to the outcome of the surgery and the prolonged outcome of other Charcot deformities that may occur after the postoperative period. Patientwas amenable understanding the risks and benefits of surgical intervention to the right foot and would like to move forward. Open wound selective excisional debridement of devitalized soft tissue, fibrin, epidermis, dermis, thru skin and subcutaneous tissue, first 20 sq cm or less, using sterile sharp dissection #15 scalpel blade of the right foot ulcer. Pt. deferred anesthesia. . Devitalized tissue was not sent to pathology. Patient's right foot wound was dressed with offloading pad and Betadine DSD Surgical Planning visit: PLAN: During today???s visit we discussed at great length the etiology, prognosis, and treatment options for the patient???s condition. Risks and benefits of operative and non operative treatment options were discussed. Treatment options for right foot exostectomy with equinus contracture correction were discussed, non-operative treatment would involve tapping, strapping, adjustments in shoe gear, orthotics insoles,rest, bracing and edema control. There is potential for the deformities to stabilize without surgery yet there may still be a need for delayed surgery and joint distructive procedures. There is potential for non-union with surgery and non-operative care would avoid incision problems, fixation complications and anesthesia risks. Surgery has added risks including but not limited to infection, incision pain, neuritis or numbness reoccurance of deformity, scar tissue contracture, worsening of deform ity and eventual need for removal of hardware. Right foot exostectomy of the lateral column with tendo Achilles lengthening healing was discussed in relation to operative treatment. Recovery and postoperative immobilization was discussed based on the various treatment options. A decision was made to pursue right foot exostectomy of lateral column with tendo Achilles lengthening surgery. Patient voices understanding of the risks and benefits and would like to proceed with surgery. Weight bearing status: NWB x 4 weeks followed by progressive WB x 6 weeks in a below the knee boot. Work&Activity restrictions: Impact of undergoing surgery to work and daily activity was discussed today Pain management: Postoperative pain regiment were discussed in great detail with the patient. The patient was also encouraged to aggressively elevate and ice postoperatively to help with swelling andpain control. The patient was in agreement with this plan. The patient will be prescribed IbuprofenTylenol Oxycodone for postoperative pain management. VTE Risk assessment: Risk of DVT/ PE were discussed in relation to immobilization, inactivity, injury, surgery, medication and personal risk factors. Signs and symptoms of a blood clot were discussedincluding action plan if the patient experiences these signs or symptoms. Methods of prevention and risk reduction were explained. Mechanical prophylaxis including ROM and mobilization is encouraged as much as possible. The patient???s risk for deep vein thrombosis was also assessed today. In regards to major risk factors they: Do not have personal history of DVT Do not have known active cancer Do not have known clotting disorder Do not have family history of DVT Pending foot surgery and current level of immobilization are risk factors. Measure taken to decrease their risk of deep vein thrombosis will consist of detailed education, as well as lower extremity range of motion. Chemical prophylaxis is not recommended based on patients history, procedure and postoperative plan. We discussed ASA 325mg qd as a precautionary measure to further decrease potential for clot formation for as long as the postoperative offloading device is required Planned procedure(s): Right foot lateral column exostectomy with tendo Achilles lengthening surgery WB status: NWB x 4 weeks followed by progressive WB x 6 weeks in a below the knee boot. DVT Prophylaxis: 325 mg QD Pain medication: Ibuprofen Tylenol Oxycodone [place] [facility] documented in this encounter Plan of Treatment Pending Results Name Type Priority Associated Diagnoses Date /Time XR Foot 3+ Views bilat Imaging Routine Charcot arthropathy of forefoot 11/23/2024 9:06 AM EDT Scheduled Orders Name Type Priority Associated Diagnoses Orde r Schedule XR Foot 3+ Views bilat Imaging Routine Charcot arthropathy of forefoot Expected: 11/23/2024, Expires: 11/23/2025 Scheduled Procedures Name Priority Associated Diagnoses Date/Ti me OSTEOTOMY TARSAL Acquired rocker bottom foot of right lower extremity Exostosis of right foot Equinus contracture of right ankle LENGTHEN OR SHORTEN TENDON Acquired rocker bottom foot of right lower extremity Exostosis of right foot Equinus contracture of right ankle documented as of this encounter Visit Diagnoses Diagnosis Charcot arthropathy of forefoot- Primary Acquired rocker bottom foot of right lower extremity Exostosis of right foot Equinus contracture of right ankle Midfoot ulceration, right, with fat layer exposed (CMS/[facility] V24, [facility] V28) documented in this encounter Orders Outpatient Referral Count Last Ordered Date Fir st Ordered Date AMB REFERRAL TO ORTHOPEDIC SURGERY 1 2024 Case Request Count Last Ordered Date First Orde red Date CASE REQUEST OPERATING ROOM 1 11/23/2024 documented in this encounter Care Teams Baby Nurse Relationship Specialty Start Date End Date Darien Bruner MD [address] [place] [address] Dr [place] PCP - General 09/04/23 documented as of this encounter
--- OUTSIDE RECORDS SUMMARY | 2024-11-26 07:58 | XMS_ITS | Clinical Summary ---
Author Organization [facility] Address [address] [place] [address] Care Team Providers Care Early Childhood Specialist Name Role Phone Darien Bruner MD Primary Care Provider [phone] Allergies Active Allergy Reactions Criticality Noted Date Comments Penicillins Unknown/Patient and Family Unable to Define Medium 02/10/2024 Medications SUPPLY DME MISCIndications :Pain in right ankle and joints of right foot RT ANKLE / Foot [place] Boot Dx: Diabetic Neuropathy, RT Plantar foot [...] 60-74 years 1-dose series) 2012 Influenza Vaccine 10/08/2024 COVID-19 Vaccine (3 - 2024-2 6 season) 2024 06/08/2020, 05/18/2020 Hepatitis B Vaccines Aged Out No long er eligible based on patient's age to complete this topic Insurance MEDICARE PART A & [place] [id number] Care Teams Early Childhood Specialist Relationship Specialty Start Date End Date Darien Bruner MD [address] [place] [address] [place] [address] PCP - General 01/19/24
--- OUTSIDE RECORDS SUMMARY | 2024-11-26 07:58 | XMS_ITS | Clinical Summary ---
Author Organization [facility] Address [address] [place] [address] Phone Care Team Providers Care Pig Casting Machine Operator Name Role Phone Darien Bruner MD Primary Care Provider [phone] Allergies Active Allergy Reactions Criticality Noted Date Comments Penicillins Rash 10/10/2023 Active Problems Problem Noted Date Diagnosed Date Acquired rocker bottom foot of right lower extre mity 11/23/2024 Exostosis of right foot 11/23/2024 Equinus contracture of right ankle 11/23/2024 Encounters Date Type Department Care Team Description 11/23/2024 8:45 AM EDT Consult Orthopedic Surgery - [place] [address] [facility] [address] [place] [address] [place], DPHolli Charcot arthropathy of forefoot (Primary Dx); Acquired rocker bottom foot of right lower extremity; Exostosis of right foot; Equinus contracture of right ankle; Midfoot ulceration, right, with fat layer exposed (CMS/HCC V24, CMS/HCC V28) from Last 3 Months Medical History Medical History Date Comments 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 Paroxysmal atrial fibrillati on (CMS/HCC V24, CMS/HCC V28) DX:Paroxysmal atrial fibrill ation (HCC) 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 (CMS/HCC V24, CMS/HCC V28) DX:Type 2 diabetes mellitus with polyneuropathy (HCC) Heart failure, unspecified ( CMS/HCC V24, CMS/HCC V28) DX:Heart failure, unspecifie d (HCC) 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: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 Lower back pain DX:Lower back pa in Pain in foot DX:Pain in foot Non-rheumatic tricuspid valv e insufficiency DX:Non-rheumatic tricuspid v alve insufficiency Chronic diastolic congestive heart failure ([facility] V24, [facility] V28) DX:Chronic diastoli c congestive heart failure (HCC) Tachycardia, unspecified DX:Tach ycardia, unspecified MRSA (methicillin resistant Staphylococcus aureus) DX:MRSA (methicillin resista nt Staphylococcus aureus) Chronic atrial fibrillation ([facility] V24, [facility] V28) DX:Chronic atrial fibrillati on (HCC) Iron deficiency anemia, unspecified DX:Iron deficiency anemia, unspecified Left knee pain DX:Left knee dax n Right knee pain DX:Right knee pa in Cellulitis of great toe, left DX :Cellulitis of great toe, left Bronchitis DX:Bronchitis SOB (shortness of breath) DX:SOB (shortness of breath) Social History Tobacco Use Types Packs/Day Years Used Date Smoking Tobacco: Never Assessed Sex and Gender Information Value Date Recorded Sex Assigned at Not on file Legal Sex Male 11:40 AM EDT Gender Identity Not on file Sexual Orientation Not on file Obstetrics History Last Filed Vital Signs Vital Sign Reading Time Taken Comments Blood Pressure - - Pulse - - Temperature - - Respiratory Rate - - Oxygen Saturation - - Inhaled Oxygen Concentration - - Weight 113 kg (250 lb) 10/10/2023 8:19 AM EDT Height 172.7 cm (5' 8 ) 10/10/2023 8:19 AM EDT Body Mass Index 38.01 10/10/2023 8:19 AM EDT Plan of Treatment Scheduled Procedures Name Priority Associated Diagnoses Date/Ti me OSTEOTOMY TARSAL Acquired rocker bottom foot of right lower extremity Exostosis of right foot Equinus contracture of right ankle LENGTHEN OR SHORTEN TENDON Acquired rocker bottom foot of right lower extremity Exostosis of right foot Equinus contracture of right ankle Health Maintenance Due Date Last Done Comments Diabetes: Annual GFR (Glomerular Filtration Rate) 1952 Diabetes: Annual Foot Exam 1962 Diabetes: Annual Retina Eye Exam 1962 DTaP,Tdap,and Td Vaccines (1 - Tdap) 1971 Pneumococcal Vaccine: 50+ Years (1 of 1 - PCV) 2002 Abdominal Aortic Aneurysm (AAA) Screen 12/23/2023 Cholesterol Screening (Lipid Panel) 12/23/2023 Colorectal Cancer Screening: Colonoscopy 12/23/2023 Falls Risk Assessment 12/23/2023 Hepatitis C Screening 12/23/2023 Medicare Annual Wellness Visit 12/23/2023 Social Influencers of Health Screening 12/23/2023 Depression Screening 03/10/2024 COVID-19 Vaccine ( season) 2024 12/06/2023, 12/05/2022, 07/01/2022, Additional history exists Influenza Vaccine (#1) 2024 12/06/2023, 2021 Diabetes: Annual Urine Albumin-Creatinine Ratio (uACR) 11/23/2024 Diabetes: Blood Sugar Control Test (HGBA1C) 11/23/2024 Hypertension/CHF/CAD Annual BMP Blood Test 11/23/2024 Zoster Vaccines Completed 08/29/2022, 06/25/2022 RSV Immunization Adult Patients Completed 12/05/2022 HIB Vaccines Aged Out No longer eligi ble based on patient's age to complete this topic HPV Vaccines Aged Out No longer eligi ble based on patient's age to complete this topic Hepatitis A Vaccines Aged Out No long er eligible based on patient's age to complete this topic Hepatitis B Vaccines Aged Out No long er eligible based on patient's age to complete this topic IPV Vaccines Aged Out No longer eligi ble based on patient's age to complete this topic MMR Vaccines Aged Out No longer eligi ble based on patient's age to complete this topic Meningococcal ACWY Vaccine Aged Out N o longer eligible based on patient's age to complete this topic Meningococcal B Vaccine Aged Out No l onger eligible based on patient's age to complete this topic RSV Immunization Patients Under 20 months Aged Out No longer eligible based on patient's age to complete this topic Varicella Vaccines Aged Out No longer eligible based on patient's age to complete this topic Insurance MEDICARE [facility] Care Teams Pig Casting Machine Operator Relationship Specialty Start Date End Date Darien Bruner MD [address] [place] [address] Dr [place] PCP - General 09/04/23
--- OUTSIDE RECORDS SUMMARY | 2024-11-26 07:58 | XMS_ITS | Clinical Summary ---
Author Organization [facility] Address [address] [place], [place] [id number] Phone Care Team Providers Care Outpatient Dietitian Name Role Phone Darien Bruner MD Primary [...] [place] [address] MEDICARE PART A [place] [id number] [place] [employer] MEDEX SUPPLEMENT [facility] [place] [address] MED[place]ARE PART A & B [facility] MEDEX [place] [address] MEDICARE PART A & B [employer] MEDEX SUPPLEMENT [place]KA [place] [address] MEDICARE PART A & B [employer] MEDEX SUPPLEMENT [employer] [place] [address] MEDICARE PART A & B [employer] CROSS MEDEX SUPPLEMENT [address] MEDICARE PART A & B [employer] [place] [address] MEDICARE PART A & B Member Subscriber Plan / Payer (Ef fective 2021-) Name:Leonardo Pang Member ID:[id number] Relation to Subscriber:Self Name:Leonardo Pang Subscriber ID:[id number] Payer ID:[id number] Group ID:Not on file Type:Medicare Address: [employer] [address] Careg[employer] MEDEX SUPPLEMENT MEDICARE PART A & B [employer] MEDEX SUPPLEMENT MEDICARE PART A & B [employer] CROSS MEDEX SUPPLEMENT Care Teams Outpatient Dietitian Relationship Specialty Start Date End Date Darien Bruner MD [address] [place] [address] [place] [address] PCP - General Internal Medicine 05/31/21 Additional Source Comments The information contained in this document represents components of the legal health record. It is not the complete legal health record.[facility]
[2024-11-26 08:08] LABS: Prothrombin Time Whole Bld POC 25.5 sec (11.1-13.5); ~PT, ~INR - Anti Coag Clinic 2.1 (0.9-1.1)
--- NOTE | 2024-11-26 08:14 | MHC.OFFVISCO ---
Intake Intake Visit Reasons: Anticoagulation Allergies Penicillins (PENICILLINS) Allergy (Intermediate, Verified 11/26/24 08:02) rash- STATES BAD RXN CHILD Medication List - Last Reconciled 11/26/24 by Sayra Adorno RN blood sugar diagnostic As directed carvedilol 12.5 mg PO DAILY cholecalciferol (vitamin D3) 50 mcg PO DAILY@1600 ferrous sulfate (iron) 325 mg PO DAILY furosemide mg PO glipizide ER 10 mg PO BID lancets (OneTouch Delica Plus Lancet) As directed metformin ER 500 mg PO TID zivdvjkvyppq-dvjiogrk-ymsaom 1 tab PO DAILY oxycodone-acetaminophen 5-325 mg 1 tab PO Q4-6H PRN 30 days pravastatin 80 mg PO BEDTIME tamsulosin 0.4 mg PO DAILY@1700 warfarin 2 mg See Protocol PO DAILY@1800 warfarin 4 mg See Protocol PO DAILY Nursing Note INR: 2.1 in therapeutic range Medications and supplements reviewed * Planning for surgical procedure someime mid December - on bottom of foot - date to be determined No changes in health, diet, medications, or supplements, Denies any signs and symptoms of bleeding or bruising or clotting. Bleeding, bruising, clotting discussed Nutritional guidance given Dose: 6mg daily F/U INR: 1 month Patient verbalizes understanding of instructions given Anti-Coag Initial Assessment Social Hx Patient Tobacco Use Status: Former Tobacco user Tobacco use type: Cigarette alcohol intake: former Alcohol intake frequency: does not drink Coding Level of Care Code Est Patient Level 1 Diagnoses Current use of anticoagulant therapy Z79.01 Results AMB INR Fingerstick AMB INR Fingerstick 2.1 Last Edit by Sayra Adorno RN on 11/26/24 08:12 Assessment & Plan Assessment & Plan (1) Current use of anticoagulant therapy: Code(s): Z79.01 - intermediate frame tender (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
== END 2024-11-26 08:18 | disposition home or self-care (01) ==
LOC: HO.ACS 07:56
PROVIDERS: Visit Provider Internal Medicine Medical Oncology
DX: Z79.01 Long term (current) use of anticoagulants (principal)

== ENCOUNTER → 2024-11-26 07:56 | Outpatient (BNVA) | payer MEDICARE, SELFPAY | PROVIDERS: Visit Provider Internal Medicine Medical Oncology | DX: Z51.81 Encounter for therapeutic drug level monitoring (principal); Z79.01 Long term (current) use of anticoagulants | CPT/HCPCS: 85610; 99211 ==

== ENCOUNTER 2024-12-24 07:59 | Outpatient (AMB) | payer MEDICARE, SELFPAY ==
--- OUTSIDE RECORDS SUMMARY | 2024-02-23 04:00 | XMS_ITS ---
Author Organization [facility] Address [address] [place] [address] Care Team Providers Care Food And Beverage Controller Name Role Phone Young Bunn Primary Care Provider [phone] Ronel Leon [phone] Encounters Encounter Location Date Provider Diagnosis [address] [address] 02/23/2024 Ronel Leon Plan Of Treatment Next Appt Details Provider Name:Ronel Leon , 03/17/2025 08:30:00 AM, [address] [place], [address], Progress Notes * Leonardo GRIFFINDOB:1950 (74 yo M)Acc No.[id number]:02/23/2024 Progress Note Patient: Holli HERNANDEZLeonardo Provider: Rashard Leon DPM :1950 A ge:73 Y S ex:Male Date:02/23/2024 Address:[address] [place] [address] [place], [id number] Pcp:Young Bunn Subjective: * Chief Complaints: * [...] 1 04/25/2023 Generated for René temple/Melissa/Patel on: 1 08:03 AM EDT
--- OUTSIDE RECORDS SUMMARY | 2024-07-29 05:00 | XMS_ITS ---
Author Organization [facility] Address [address] [place] [address] Care Team Providers Care Behavioral Health Aide Name Role Phone Young Bunn Primary Care Provider Ronel Leon [phone] Encounters Encounter Location Date Provider Diagnosis [address] [address] 07/29/2024 Ronel Leon Plan Of Treatment Next Appt Details Provider Name:Ronel Leon , 03/17/2025 08:30:00 AM, [address] [place], [address], Progress Notes * Leonardo GRIFFINDOB:1950 (74 yo M)Acc No.[id number]:07/29/2024 Progress Note Patient: Holli HERNANDEZLeonardo Provider: Rashard Leon DPM :1950 A ge:74 Y S ex:Male Date:07/29/2024 Address:[address] [place] [address] [id number] Pcp:Young Bunn Subjective: * Chief Complaints: * [...] 07/29/2024 Generated for René temple/Melissa/Patel on: 1 08:02 AM EDT
--- OUTSIDE RECORDS SUMMARY | 2024-10-25 07:15 | XMS_ITS ---
Author Organization [facility] Address [address] [place] [address] Care Team Providers Care Auto Mechanic Name Role Phone Young Bunn Primary Care Provider Ronel Leon [phone] Encounters Encounter Location Date Provider Diagnosis [address] [address] 10/25/2024 Ronel Leon Plan Of Treatment Next Appt Details Provider Name:Ronel Leon , 03/17/2025 08:30:00 AM, [address] [place], [address], Progress Notes * Leonardo GRIFFINDOB:1950 (74 yo M)Acc No.[id number]:10/25/2024 Progress Note Patient: Holli HERNANDEZLeonardo Provider: Rashard Leon DPM :1950 A ge:74 Y S ex:Male Date:10/25/2024 Address:[address] [place] [address] [id number] Pcp:Young Bunn Subjective: * Chief Complaints: * [...] 10/25/2024 Generated for René temple/Melissa/Patel on: 1 08:02 AM EDT
--- OUTSIDE RECORDS SUMMARY | 2024-12-24 08:03 | XMS_ITS | Clinical Summary ---
Author Organization [facility] Address [address] [place] [address] Care Team Providers Care Optomechanical Technician Name Role Phone Darien Bruner MD Primary Care Provider [phone] Allergies Active Allergy Reactions Criticality Noted Date Comments Penicillins Unknown/Patient and Family Unable to Define Medium 02/10/2024 Medications SUPPLY DME MISCIndications :Pain in right ankle and joints of right foot RT ANKLE / Foot [place] Boot Dx: Diabetic Neuropathy, RT Plantar foot [...] 50+ (1 of 1 - PCV) 2002 RSV Vaccine 50 years and older and Patients (1 - Risk 50-74 years 1-dose series) 2002 Zoster (Shingles) Vaccine (1 of 2) 2002 Influenza Vaccine 10/08/2024 COVID-19 Vaccine (3 - 2024-2 6 season) 2024 06/08/2020, 05/18/2020 Hepatitis B Vaccines Aged Out No long er eligible based on patient's age to complete this topic Insurance MEDICARE PART A & [place] [id number] Care Teams Optomechanical Technician Relationship Specialty Start Date End Date Darien Bruner MD [address] [place] [address] [place] [address] PCP - General 01/19/24
--- OUTSIDE RECORDS SUMMARY | 2024-12-24 08:03 | XMS_ITS | Clinical Summary ---
Author Organization [facility] Address [address] [place], [place] [address] Phone Care Team Providers Care Implementation Architect Name Role Phone Darien Bruner MD Primary [...] [place] [address] MEDICARE PART A [place] [id number] [place] MEDEX SUPPLEMENT [facility]UEL [facility] [place] [address] MEDICARE PART A & B [facility] MEDEX [place] [address] MEDICARE PART A & B [employer] MEDEX SUPPLEMENT T[place]KA [place] [address] MEDICARE PART A & B [employer] MEDEX SUPPLEMENT [employer] [place] [address] MEDICARE PART A & B [employer] CROSS MEDEX SUPPLEMENT [address] MEDICARE PART A & B [employer] [place] [address] MEDICARE PART A & B Member Subscriber Plan / Payer (Ef fective 2021-) Name:Leonardo Pang Member ID:[id number] Relation to Subscriber:Self Name:Leonardo Pang Subscriber ID:[id number] Payer ID:[id number] Group ID:Not on file Type:Medicare Address: [employer] [address] [employer] MEDEX SUPPLEMENT MEDICARE PART A & B [employer] MEDEX SUPPLEMENT MEDICARE PART A & B [employer] CROSS MEDEX SUPPLEMENT Care Teams Implementation Architect Relationship Specialty Start Date End Date Darien Bruner MD [address] [place] [address] [place] [address] PCP - General Internal Medicine 05/31/21 Additional Source Comments The information contained in this document represents components of the legal health record. It is not the complete legal health record.[facility]
--- OUTSIDE RECORDS SUMMARY | 2024-12-24 08:03 | XMS_ITS | Data Portability ---
Author Organization [place] [facility], [facility] Address [address] [place] [phone] Care Team Providers Care Youth Corrections Officer Name Role Phone EMMA THOMAS Primary Care Provider [phone] Assessment Encounter Date Assessment Date Assessment LastModified [...] Sensorine ural hearing loss of bilateral ears 339052745 Active 2013 SNHL Bilaterall y; CMS Risk: low risk Note: Date Diagnosed: 12/10/2013 9:18 AM (389.18) Not Available [facility] 4 02:31:47 Bilateral sensory hearing loss 036088479 Active 2013 Hearing loss: Sensory hearing loss, bilateral; Location: left Note: Date Diagnosed: 12/16/2013 11:26 AM (389.11) Not Available [facility] 4 02:31:45 Postopera tive follow-up visit Active 2013 Post op; Note: Date Diagnosed: 12/16/2013 11:26 AM (V67.00) Not Available [facility] 4 02:31:42 Allergic rhinitis caused by pollen 19344320 Active 2013 Vasomotor rhinitis; Note: Date Diagnosed: 01/10/2014 2:23 PM (477.0) Not Available [facility] 4 02:31:46 Gastroeso phageal reflux disease without esophagit is 819139975 Active 2014 Gastro-eso phageal reflux disease without esophagiti s; Note: Date Diagnosed: 01/16/2015 10:07 AM (K21.9) Not Available [facility] 4 02:31:43 Deviated nasal septum 300055646 Active 2014 Septal Deviation; Note: Date Diagnosed: 08/05/2014 11:13 AM (470) ; Start Date : 08/05/2014 Deviated nasal septum; Note: Date Diagnosed: 01/16/2015 9:52 AM (J34.2) Not Available [facility] 4 02:31:48 Hypertrop hy of nasal turbinate s 11640616 Active 2014 Nasal turbinate hypertroph y; Note: Date Diagnosed: 02/16/2014 12:31 PM (478.0) ; Start Date : 02/16/2014 Hypertrop hy of nasal turbinates ; Note: Date Diagnosed: 01/16/2015 9:52 AM (J34.3) Not Available [facility] 4 02:31:37 Obstructi ve sleep apnea syndrome 38762690 Active 2015 Obstructiv e sleep apnea (adult) (pediatric ); Note: Date Diagnosed: 05/04/2015 4:55 PM (G47.33) Not Available [facility] 4 02:31:48 Simple obesity 114792471 Active 2016 Other obesity due to excess calories; Note: Date Diagnosed: 10/09/2016 1:21 PM (E66.09) Not Available [facility] 4 02:31:33 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 Medical Equipment None Reported. Allergies Allergen ID Allergen Name Allergen Category Reaction Reaction Severity Criticality Documentation Date Start Date Code Code System Note Provider Name and Address Organization Details Recorded Time 49051 Product containin g penicilli n (product) medicatio n other Not available Not available 07/22/2023 06911 8001 SNOMED React ion: Unkno wn; Not Available [facility] 4 00:23:22 Medications Name Sig Start Date Stop Date Status Note LastModified by Organization Details LastModified Time furosemid e 40 mg tablet active Medicati on ID: [id number] B rand Name: furosemi de Send Method: E-Prescr ibed Sub s Allowed: subs OK Medic ationGen ericName : furosemi de Not Available Not Available Not Available metolazon e 2.5 mg tablet active Not Available Not Available Not Available metformin 500 mg tablet 05/11 completed Medicati on ID: [id number] Br and Name: metformi n Send Method: [...] ous solution 05/11 completed Medicati on ID: [id number] D uration Value: 28 Brand Name: Lantus U-100 Insulin Send Method: E-Prescr ibed Sub s Allowed: subs OK Speci al Instruct ion: INJECT 10 UNITS SUBCUTAN EOUSLY AT BEDTIME DISCAR D VIAL AFTER 28 DAYS Medic ationGen ericName : Lantus U-100 Insulin Not Available Not Available Not Available digoxin 250 mcg (0.25 mg) tablet 05/11 completed Medicati on ID: [id number] Br and Name: digoxin Send Method: E-Prescr ibed Sub s Allowed: subs OK Medic ationGen ericName : digoxin Not Available Not Available Not Available omeprazol e 40 mg capsule,d elayed release active Medicati on ID: [id number] B rand Name: omeprazo le Send Method: E-Prescr ibed Sub s Allowed: subs OK Medic ationGen ericName : omeprazo le Not Available Not Available Not Available tramadol 50 mg tablet 05/11 completed Medicati on ID: [id number] Br and Name: tramadol Send Method: E-Prescr ibed Sub s Allowed: subs OK Medic ationGen ericName : tramadol Not Available Not Available Not Available warfarin 4 mg tablet active Not Available Not Available Not Available Nexium 20 mg capsule,d elayed release 1 capsule by mouth once a day 05/11 completed Medicati on ID: [id number] Br and Name: Nexium S end Method: [...] 0.4 mg capsule active Medicati on ID: [id number] B rand Name: tamsulos in Send Method: E-Prescr ibed Sub s Allowed: subs OK Medic ationGen ericName : tamsulos in Not Available Not Available Not Available glipizide ER 2.5 mg tablet, extended release 24 hr 05/11 completed Medicati on ID: [id number] Br and Name: glipizid e Send Method: E-Prescr ibed Sub s Allowed: subs OK Medic ationGen ericName : glipizid e Not Available Not Available Not Available warfarin 2 mg tablet active Medicati on ID: [id number] B rand Name: warfarin Send Method: E-Prescr ibed Sub s Allowed: subs OK Medic ationGen ericName : warfarin Not Available Not Available Not Available fluticaso ne propionat e 50 mcg/actua tion nasal spray,andres pension 05/11 completed Medicati on ID: [id number] D uration Value: 30 Brand Name: fluticas one propiona te Send Method: E-Prescr ibed Sub s Allowed: subs OK Speci al Instruct ion: USE 1 SPRAY IN EACH NOSTRIL TWICE A DAY Medi cationGe nericNam e: fluticas one propiona te Not Available Not Available Not Available metformin ER 500 mg tablet,ex tended release 24 hr active Medicati on ID: [id number] B rand Name: metformi n Send Method: E-Prescr ibed Sub s Allowed: subs OK Medic ationGen ericName : metformi n Not Available Not Available Not Available ipratropi um bromide 21 mcg (0.03 %) nasal spray Inhale 2 spray into both nostrils three times a day as directed 05/11 completed Medicati on ID: [id number] Br and Name: Atrovent Send Method: E-Prescr [...] mcg tablet 05/11 completed Medicati on ID: [id number] Br and Name: Centrum Silver Ultra Men's Se nd Method: E-Prescr ibed Sub s Allowed: subs OK Medic ationGen ericName : Centrum Silver Ultra Men's Not Available Not Available Not Available Vitals Date Recorded Body height Body mass index (BMI) Body weight Provider Name and Address Organization Details Last Updated DateTime 08/14/2023 172.72 cm 38 kg/m2 401869.09 g Tevin Koch [place] - [facility] 08/14/2023 10:01:01 Social History None recorded. Functional Status None recorded. Mental Status None recorded. Family History Nothing Reported. Medical History No medical history recorded. Past Encounters Encounter ID Performer Location Encounter Start Date Encounter Closed Date Diagnosis/Indication Diagnosis SNOMED-CT Code Diagnosis ICD10 Code Diagnosis IMO Codes Diagnosis Note [id number] RAMYA ARNDT MD [facility] [address] [place] [address] 08/14/2023 09:50:50 08/14/2023 10:16:30 Benign neoplasm of parotid gland 66121557 D11.0 Health Concerns Section Related Observation LastModified by Organization Detai ls LastModified Time None Recorded Concern Status LastModified by Organization Details LastModified Time None Recorded Advance Directives Directive None Recorded Payers Insurance Date Sequence Insurance Name Policy Number Policy Casarez Covered Member ID Casarez Member ID Guarantor Name 07/28/2023 2 [place] Leonardo Pang [id number] Leonardo Pang 08/14/2023 1 [place] [facility] [employer] Leonardo Pang [id number] Leonardo Pang Notes Date Note Type Note Provider Name and Address Organization Details Recorded Time 08/14/2023 text/html ROS as noted in the HPI 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 compare with prior [...] cochlear implant with Dr Demetrio ARNDT MD [address] [place] [address], [phone], [facility] - [facility] 08/14/2023 10:15:11
--- OUTSIDE RECORDS SUMMARY | 2024-12-24 08:03 | XMS_ITS | Encounter Summary ---
Author Organization [facility] Address [address] [place] [address] Care Team Providers Care Motorcycle Police Name Role Phone Darien Bruner MD Primary Care Provider [phone] Encounter Details Date Type Department Care Team (Late st Contact Info) Description 11/26/2024 Telephone Orthopedic Surgery - [place] [address] [phone] [place], DPM [address] [address] Social History Tobacco Use Types Packs/Day Years Used Date Smoking Tobacco: Never Assessed Sex and Gender Information Value Date Recorded Sex Assigned at Not on file Legal Sex Male 11:40 AM EDT Gender Identity Not on file Sexual Orientation Not on file documented as of this encounter Progress Notes * Kymberly Castaneda - 12/01/2024 1:11 PM EDT Patient called back in stating surgery would have to be after 01/04 now. She also stated they are still waiting to be called to book the surgery. Please advise. Thanks * Mauricio Rodriguez - 11/26/2024 11:14 AM EDT Pt called inquiring on surgery date & time. Would like something after December 18. documented in this encounter Plan of Treatment Upcoming Encounters Date Type Department Care Team (Latest Contact Info) Description 04/01/2025 7:30 AM EST Hospital Encounter [facility] Main [place] [address] [place] [phone] [place] DPM [address] [address] 04/01/2025 7:30 AM EST - 04/01/2025 9:30 AM EST Surgery [facility] Main [place] [address] [place] [phone] [place] DPM [address] [address] OSTEOTOMY TARSAL [54947 (CPT )] 04/14/2025 9:00 AM EST Office Visit Orthopedic Surgery [place] [address] [phone] [place] DPM [address] [address] Scheduled Procedures Name Priority Associated Diagnoses Date/Ti me OSTEOTOMY TARSAL Acquired rocker bottom foot of right lower extremity Exostosis of right foot Equinus contracture of right ankle 04/01/2025 7:30 AM EST LENGTHEN OR SHORTEN TENDON Acquired rocker bottom foot of right lower extremity Exostosis of right foot Equinus contracture of right ankle 04/01/2025 7:30 AM EST documented as of this encounter Visit Diagnoses Not on filedocumented in this encounter Care Teams Motorcycle Police Relationship Specialty Start Date End Date Darien Bruner MD [address] [place] [address] Dr Martinez [address] [place] [address] PCP - General 09/04/23 documented as of this encounter
--- OUTSIDE RECORDS SUMMARY | 2024-12-24 08:03 | XMS_ITS | Patient Health Record ---
Author [facility] Address [address] [facility] [place] [address] Care Team Providers Care Bass Mechanism Maker Name Role Phone Young Bunn Primary Care Provider Black, Ronel Unavailable [phone] Allergies Allergen (clinical drug ingredient) Drug/Non Drug [...] Polyneuropathy due to type 2 diabetes mellitus (337115457) Type 2 diabetes mellitus with diabetic polyneuropathy (E11.42) Active confirmed Problem Diabetic neuropathic arthropathy (352318551) Charcot foot due to diabetes mellitus (E11.610) Active confirmed Vital Signs Blood pressure diastolic 65 mm Hg 10/28/2024 Height 5ft8in in 10/28/2024 Blood pressure systolic 121 mm Hg 10/28/2024 Weight 245 lbs 10/28/2024 BMI 37.25 kg/m2 10/28/2024 Procedures Procedure Date Ordered Date Performed Result Body Sit e 18546-HUHWWWX NAIL, 6 OR MORE 04/19/2024 N/A 11549-AQIL SKIN LESIONS, OVER 4 04/19/2024 N/A 48967-VDCXRKP NAIL, 6 OR MORE 10/28/2024 N/A 85329-LHVD SKIN LESIONS, OVER 4 10/28/2024 N/A Encounters Encounter Location Date Provider Diagnosis [address] [address] 04/19/2024 Ronel Black Type 2 diabetes mellitus with diabetic polyneuropathy E11.42 ; Charcot foot due to diabetes mellitus E11.610 ; Tinea unguium B35.1 ; Charcot gait R26.0 ; Skin ulcer of toe of right foot, limited to breakdown of skin L97.511 and Subungual contusion of toe of left foot, initial encounter S90.222A [address] [address] 10/28/2024 Ronel Black Type 2 diabetes mellitus with diabetic polyneuropathy E11.42 ; Charcot foot due to diabetes mellitus E11.610 ; Tinea unguium B35.1 and Charcot gait R26.0 [facility] [address] [place] [address] 02/12/2024 Ronel Leon [facility] [address] [place] [address] 07/26/2024 Ronel Leon Assessments Encounter Date Diagnosis [...] Test Name Order Date Hemoglobin A1c 06/04/2018 14264-EZNETAG NAIL, 6 OR MORE 10/28/2024 98318-UCYDNMK NAIL, 6 OR MORE 04/19/2024 18162-DXGIQJH NAIL, 6 OR MORE 12/05/2010 35643-YBOCDAT NAIL, 6 OR MORE 02/06/2011 88028-UWYRXAB NAIL, 6 OR MORE 04/22/2011 54354-PGNCMXM NAIL, 6 OR MORE 07/15/2011 22929-MTEKBQW NAIL, 6 OR MORE 09/25/2011 13434-JCJZTWZ NAIL, 6 OR MORE 10/28/2011 50823-PAAIHPY NAIL, 6 OR MORE 01/16/2012 44433-GMULILI NAIL, 6 OR MORE 04/08/2012 00841-XGZURBX NAIL, 6 OR MORE 06/24/2012 14448-LSBMKXG NAIL, 6 OR MORE 09/23/2012 26732-DBMQUYJ NAIL, 6 OR MORE 12/28/2012 59386-VXGYXBL NAIL, 6 OR MORE 03/31/2013 96014-QTUEQGK NAIL, 6 OR MORE 06/14/2013 63645-VEXMXHU NAIL, 6 OR MORE 09/20/2013 50680-LAFAKKH NAIL, 6 OR MORE 12/22/2013 78939-BAVJPTB NAIL, 6 OR MORE 03/21/2014 99593-HIVIQXJ NAIL, 6 OR MORE 06/20/2014 46219-PNJBRKN NAIL, 6 OR MORE 09/21/2014 50059-PYTHEEN NAIL, 6 OR MORE 11/30/2014 32708-PFDXIRU NAIL, 6 OR MORE 02/06/2015 15574-ZUWKWAM NAIL, 6 OR MORE 05/01/2015 82776-IIJTLSM NAIL, 6 OR MORE 07/10/2015 27200-ZGXJSMB NAIL, 6 OR MORE 10/02/2015 19191-MNPPYKR NAIL, 6 OR MORE 12/14/2015 66465-IACWMAY NAIL, 6 OR MORE 02/22/2016 79578-KVGPOYM NAIL, 6 OR MORE 05/30/2016 30664-AURCZOA NAIL, 6 OR MORE 08/29/2016 63735-DHYIHTD NAIL, 6 OR MORE 11/28/2016 27709-ZTHPOQD NAIL, 6 OR MORE 02/27/2017 17820-AGPWYVR NAIL, 6 OR MORE 05/29/2017 52813-YYZNNKI NAIL, 6 OR MORE 08/28/2017 81427-RGXIUHH NAIL, 6 OR MORE 03/12/2018 47166-ADWUWXV NAIL, 6 OR MORE 11/27/2017 18354-NJGNPUD NAIL, 6 OR MORE 06/04/2018 11803-BIUYRUW NAIL, 6 OR MORE 07/12/2021 25904-NBEXXNA NAIL, 6 OR MORE 10/25/2021 66228-WNOGWWM NAIL, 6 OR MORE 02/07/2022 05657-DFTHQNX NAIL, 6 OR MORE 06/13/2022 51867-GWARUDF NAIL, 6 OR MORE 10/17/2022 33270-YRTOKHF NAIL, 6 OR MORE 02/17/2023 43951-ISGWJVX NAIL, 6 OR MORE 06/19/2023 63190-ZQQLACR NAIL, 6 OR MORE 10/23/2023 86077-Oxwk Destruction, -14 02/17/2023 05817-Cgct Destruction, -06/19/2023 29055-Pvyr Destruction, -06/13/2022 31779-Itzl Destruction, -10/17/2022 76340-Sfezrcuo Plate 07/12/2021 58847-Wyegcwxz Plate 10/25/2021 40780-Szedknzf Plate 05/29/2017 97229-Zgcomyhs Plate 08/29/2016 03665-Fbypzzgj Plate 11/30/2014 47023-Dpginrob Plate 09/21/2014 26749-Mnaenbwp Plate 06/14/2013 52417-Kzsrkqtr Plate 06/20/2014 56458-Hmthimws Plate 03/21/2014 43726-Jqydypqw Plate 12/22/2013 49134-Qfbvcyub Plate 09/20/2013 28698- Debride <25 sq cm 09/20/2013 90489- Debride <25 sq cm 12/22/2013 99323- Debride <25 sq cm 06/14/2013 42053- Debride <25 sq cm 03/31/2013 77256- Debride <25 sq cm 03/21/2014 66191- Debride <25 sq cm 06/20/2014 65853- Debride <25 sq cm 09/21/2014 53916- Debride <25 sq cm 12/28/2012 26696- Debride <25 sq cm 09/23/2012 19778- Debride <25 sq cm 06/24/2012 16267- Debride <25 sq cm 04/08/2012 95272- Debride <25 sq cm 01/16/2012 99232- Debride <25 sq cm 10/28/2011 27822- Debride <25 sq cm 09/02/2011 13893- Debride <25 sq cm 09/25/2011 35024- Debride <25 sq cm 12/26/2010 71256- Debride <25 sq cm 02/22/2016 61311- Debride <25 sq cm 12/14/2015 37617- Debride <25 sq cm 10/02/2015 70105- Debride <25 sq cm 10/12/2015 11596- Debride <25 sq cm 10/06/2014 71002- Debride <25 sq cm 05/30/2016 13134- Debride <25 sq cm 02/27/2017 50298- Debride <25 sq cm 10/25/2021 15964- Debride <25 sq cm 02/07/2022 18179- Debride <25 sq cm 10/17/2022 04586-ROKDATH SKIN/TISSUE 03/12/2018 94396-QZHTXSV SKIN/TISSUE 06/04/2018 10820-TFYKHLK SKIN/TISSUE 11/27/2011 33939-NFFUHDV SKIN/TISSUE 12/11/2011 22856-UHKLGYW SKIN/TISSUE 10/06/2014 54632 I&D ABSCESS- SIMPLE,SINGLE 015 17657 I&D ABSCESS- SIMPLE,SINGLE 011 67883 I&D ABSCESS- SIMPLE,SINGLE 015 66511-BBUR SKIN LESIONS, OVER 4 12/01/19 15 18468-GFTH SKIN LESIONS, OVER 4 02/07/20 15 27582-RQJA SKIN LESIONS, OVER 4 07/10/19 16 35090-PZAO SKIN LESIONS, OVER 4 05/01/19 16 85766-LBZK SKIN LESIONS, OVER 4 10/02/19 16 95784-TXIZ SKIN LESIONS, OVER 4 12/14/19 16 40930-GZXP SKIN LESIONS, OVER 4 02/22/20 16 22845-BHFC SKIN LESIONS, OVER 4 02/28/20 17 32907-BHKZ SKIN LESIONS, OVER 4 05/30/19 18 32913-PBUH SKIN LESIONS, OVER 4 08/29/19 18 85525-GCRI SKIN LESIONS, OVER 4 11/28/19 18 59348-WRQX SKIN LESIONS, OVER 4 05/31/19 17 44100-PRDK SKIN LESIONS, OVER 4 11/29/19 17 74767-DSLV SKIN LESIONS, OVER 4 06/05/19 19 61188-EQCB SKIN LESIONS, OVER 4 03/12/19 19 17593-VYWV SKIN LESIONS, OVER 4 10/18/19 23 43030-CGTZ SKIN LESIONS, OVER 4 06/14/19 23 96200-LXBN SKIN LESIONS, OVER 4 02/18/20 23 41952-BHBI SKIN LESIONS, OVER 4 06/19/19 24 04967-VSOO SKIN LESIONS, OVER 4 04/19/19 25 78743-WLCK SKIN LESIONS, OVER 4 10/23/19 24 77778-IZPZ SKIN LESIONS, OVER 4 12/06/19 11 23155-AHSR SKIN LESIONS, OVER 4 02/07/20 11 86787-EPOS SKIN LESIONS, OVER 4 07/15/19 12 19211-BKZH SKIN LESIONS, OVER 4 04/22/19 12 75948-QOVE SKIN LESIONS, OVER 4 09/25/19 12 03248-ZBNU SKIN LESIONS, OVER 4 10/28/19 12 14371-PIIC SKIN LESIONS, OVER 4 09/24/19 13 23074-GUTY SKIN LESIONS, OVER 4 12/29/19 13 91389-ZZPF SKIN LESIONS, OVER 4 01/16/20 12 90503-FOAR SKIN LESIONS, OVER 4 04/08/19 13 52500-MQFM SKIN LESIONS, OVER 4 06/25/19 13 21608-STPI SKIN LESIONS, OVER 4 09/22/19 15 16261-PJEQ SKIN LESIONS, OVER 4 03/21/19 15 96452-JIUT SKIN LESIONS, OVER 4 06/21/19 15 41529-PMIX SKIN LESIONS, OVER 4 03/31/19 14 37540-WMNR SKIN LESIONS, OVER 4 06/15/19 14 88632-HBEA SKIN LESIONS, OVER 4 12/23/19 14 01532-AMUV SKIN LESIONS, OVER 4 09/21/19 14 79845-YYEH SKIN LESIONS, OVER 4 10/29/19 25 66970-XDWT SKIN LESIONS, 2 TO 4 12/23/19 14 00766-LFPA SKIN LESIONS, 2 TO 4 06/15/19 14 98245-EXTS SKIN LESIONS, 2 TO 4 03/31/19 14 91679-SYTK SKIN LESIONS, 2 TO 4 06/21/19 15 84722-NUJK SKIN LESIONS, 2 TO 4 03/21/19 15 96533-OCQF SKIN LESIONS, 2 TO 4 12/29/19 13 05531-USOF SKIN LESIONS, 2 TO 4 09/24/19 13 91231-HKKS SKIN LESIONS, 2 TO 4 07/13/19 22 20821-UFLG SKIN LESIONS, 2 TO 4 02/08/20 22 96777-VSSF SKIN LESIONS, 2 TO 4 10/26/19 22 96853-ZKEU SKIN LESIONS, 2 TO 4 08/30/19 17 65257-Gomy. Subungual Hematoma 2 84357-Gpfg. Subungual Hematoma 2 Next Appt Details Provider Name:Ronel Leon , 03/17/2025 08:30:00 AM, [address] [facility], [place], [address], Insurance Providers Payer Name Payer Address Payer Phone Subscriber Number Group Number Insured Name Patient Relationship to Insured Coverage Start Date Coverage End Date Medicare National Govt Desk [facility] [address] [place] [address] [phone] [id number] Leonardo Pang Self - patient is the insured rubberit [address] [place] [address] [phone] [id number] Leonardo Pang Self - patient is the [...] Reason Date(Month/Year) [facility] 08/28/23 [facility] for [facility] 10/23/19 12
--- OUTSIDE RECORDS SUMMARY | 2024-12-24 08:04 | XMS_ITS | Clinical Summary ---
Author Organization 175 [facility] Address [address] [place] [address] Phone Care Team Providers Care Pier Runner Name Role Phone Darien Bruner MD Primary Care Provider [phone] Allergies Active Allergy Reactions Criticality Noted Date Comments Penicillins Rash 10/10/2023 Active Problems Problem Noted Date Diagnosed Date Acquired rocker bottom foot of right lower extre mity 11/23/2024 Exostosis of right foot 11/23/2024 Equinus contracture of right ankle 11/23/2024 Encounters Date Type Department Care Team Description 11/26/[address] [facility] [address] [phone] [place] DPM 11/23/2024 8:45 AM EDT Consult Orthopedic Surgery [facility] [address] [address] [place] DPHolli Charcot arthropathy of forefoot (Primary Dx); Acquired rocker bottom foot of right lower extremity; Exostosis of right foot; Equinus contracture of right ankle; Midfoot ulceration, right, with fat layer exposed ([facility]/HCC V24, [facility] V28) from Last 3 Months Medical History [...] alve insufficiency Chronic diastolic congestive heart failure ([facility] V24, [facility] V28) DX:Chronic diastoli c congestive heart failure ([facility]) Tachycardia, unspecified DX:Tach ycardia, unspecified MRSA (methicillin resistant Staphylococcus aureus) DX:MRSA (methicillin resista nt Staphylococcus aureus) Chronic atrial fibrillation ([facility] V24, [facility] V28) DX:Chronic atrial fibrillati on ([facility]) Iron deficiency anemia, unspecified DX:Iron deficiency anemia, [...] 10/10/2023 8:19 AM EDT Plan of Treatment Upcoming Encounters Date Type Department Care Team (Latest Contact Info) Description 04/01/2025 7:30 AM EST Hospital Encounter [facility] Main OR [address] [place] [phone] [place] DPM [address] [address] 04/01/2025 7:30 AM EST - 04/01/2025 9:30 AM EST Surgery [facility] Main [place] [address] [place] [address] [place] DPM 175 [facility] [address] [place] [address] OSTEOTOMY TARSAL [00097 (CPT )] 04/14/2025 9:00 AM EST Office Visit Orthopedic Surgery - [place] 250 175 [facility] [address] [place] [address] [place] DPM 175 [facility] [address] [place] [address] Scheduled Procedures Name Priority Associated Diagnoses Date/Ti me OSTEOTOMY TARSAL Acquired rocker bottom foot of right lower extremity Exostosis of right foot Equinus contracture of right ankle 04/01/2025 7:30 AM EST LENGTHEN OR SHORTEN TENDON Acquired rocker bottom foot of right lower extremity Exostosis of right foot Equinus contracture of right ankle 04/01/2025 7:30 AM EST Health Maintenance Due Date Last Done Comments Colorectal Cancer Screening: Colonoscopy 1952 Diabetes: Annual GFR (Glomerular Filtration Rate) 1952 Diabetes: Annual Foot Exam 1962 Diabetes: Annual Retina Eye Exam 1962 DTaP,Tdap,and Td Vaccines (1 - Tdap) 1971 Pneumococcal Vaccine: 50+ Years (1 of 1 - PCV) 2002 Abdominal Aortic Aneurysm (AAA) Screen 12/23/2023 Cholesterol Screening (Lipid Panel) 12/23/2023 Falls Risk Assessment 12/23/2023 Hepatitis C [...] age to complete this topic Insurance MEDICARE [facility] Care Teams Pier Runner Relationship Specialty Start Date End Date Darien Bruner MD [address] [place] [address] Dr Floridalma [place] [facility] - General 09/04/23
--- OUTSIDE RECORDS SUMMARY | 2024-12-24 08:04 | XMS_ITS | Patient Health Record ---
Author Organization [facility] Address [address] [place] [address] Care Team Providers Care Intensive Care Unit Registered Nurse Name Role Phone Zohreh (RETIRED) Darien LI [...] (1000 UT) 1 tablet Orally Once a day; Duration: 30 day(s) Active Warfarin Sodium 6 MG as directed Orally Once a day Active Tamsulosin HCl 0.4 MG 1 capsule Orally O nce a day Active Pravastatin Sodium 80 MG 1 tablet Orally Once a day Active Iron 325 (65 Fe) MG 1 tablet Orally Once a day Active Multi Vitamin - 1 tablet Orally Once a day; Duration: 30 day(s) Active Lantus SoloStar 100 UNIT/ML [...] at 5:00 p.m. the day before the procedure; Duration: 1 day 08/28/2022 Active Centrum Silver - [...] Problem Status W/U Status Risk Notes Problem Colon cancer screening (184466068) Colon cancer screening (Z12.11) Active confirmed Problem Long-term current use of anticoagulant (780205124) [facility] (current) use of anticoagulants (Z79.01) Active confirmed Problem History of polyp of colon (situation) (061920204) Personal history of colonic polyps (Z86.010) Active confirmed Problem Pre-procedure evaluation check (675752201) Encounter for other preprocedural examination (Z01.818) Active confirmed Problem Long-term current use of insulin (908304889) 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 [place], EGD 08/11/02, no H. pylori or Dsouza's esophagus Lipoma removals Hyperlipidemia Diabetes Mellitus knee pain Bilateral hip replacement Atrial fibrillation Arthritis Surgical History Surgery Date(Month/Year) Bilateral hip replacement shoulder replacement-left cochlear implant 2 knee replacements
[2024-12-24 08:11] LABS: Prothrombin Time Whole Bld POC 37.1 sec (11.1-13.5); ~PT, ~INR - Anti Coag Clinic 3.1 (0.9-1.1)
--- NOTE | 2024-12-24 08:16 | MHC.OFFVISCO ---
Intake Intake Visit Reasons: Anticoagulation Allergies Penicillins (PENICILLINS) Allergy (Intermediate, Verified 12/24/24 08:05) rash- STATES BAD RXN CHILD Medication List - Last Reconciled 12/24/24 by Edith Sharif RN blood sugar diagnostic As directed carvedilol 12.5 mg PO DAILY cholecalciferol (vitamin D3) 50 mcg PO DAILY@1600 ferrous sulfate (iron) 325 mg PO DAILY furosemide 40 mg orally 2 tabls MWF & 1 Tab TTSS; 90 days glipizide ER 10 mg PO BID lancets (OneTouch Delica Plus Lancet) As directed metformin ER 500 mg PO TID qewmnjxrlrhh-eyekjejr-clriap 1 tab PO DAILY oxycodone-acetaminophen 5-325 mg 1 tab PO Q6H PRN 30 days pravastatin 80 mg PO BEDTIME tamsulosin 0.4 mg PO DAILY@1700 90 days warfarin 2 mg See Protocol PO DAILY@1800 warfarin 4 mg See Protocol PO DAILY Nursing Note Pt to ACS accompanied by and using a wheeled walker. Boot on right foot for wound on bottom of foot. INR: 3.1 in therapeutic range of 2-3 Medications and supplements reviewed No changes in health, diet, medications, or supplements, Denies any signs and symptoms of bleeding or bruising or clotting. 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
== END 2024-12-24 08:23 | disposition home or self-care (01) ==
LOC: HO.ACS 07:59
PROVIDERS: Visit Provider Internal Medicine Medical Oncology
DX: Z79.01 Long term (current) use of anticoagulants (principal)

== ENCOUNTER → 2024-12-24 07:59 | Outpatient (BNVA) | payer MEDICARE, SELFPAY | PROVIDERS: Visit Provider Internal Medicine Medical Oncology | DX: I48.20 Chronic atrial fibrillation, unspecified (principal); Z51.81 Encounter for therapeutic drug level monitoring; Z79.01 Long term (current) use of anticoagulants | CPT/HCPCS: 85610; 99211 ==

== ENCOUNTER → 2025-01-04 08:35 | Outpatient (BNV) | payer MEDICARE, SELFPAY | PROVIDERS: PCP Internal Medicine; Visit Provider Radiology Diagnostic Radiology | DX: S91.301A Unspecified open wound, right foot, initial encounter (principal); L97.519 Non-pressure chronic ulcer of other part of right foot with unspecified severity | CPT/HCPCS: 73630 ==

== ENCOUNTER → 2025-01-21 07:54 | Outpatient (BNVA) | payer MEDICARE, SELFPAY | PROVIDERS: PCP Student in an Organized Health Care Education/Training Program; Visit Provider Internal Medicine Medical Oncology | DX: I48.19 Other persistent atrial fibrillation (principal); Z51.81 Encounter for therapeutic drug level monitoring; Z79.01 Long term (current) use of anticoagulants | CPT/HCPCS: 85610; 99211 ==

== ENCOUNTER 2025-01-27 08:37 | Outpatient (AMB) | payer MEDICARE, SELFPAY ==
--- NOTE | 2025-01-27 09:23 | A.OFFPC_ITS ---
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 Transferring care from Dr Bruner/ [facility] ([address] [place] [address]). Medical records have been requested and have received. Brush Hand Required: No School Traffic Guard: Not Required per policy Accompanied by: Self / Same As Patient Allergies Penicillins (PENICILLINS) Allergy (Intermediate, Verified 01/27/25 09:27) rash- STATES BAD RXN CHILD Medication List - Last Reconciled 01/27/25 by Elizabeth Ramirez MD blood sugar diagnostic As directed carvedilol 12.5 mg PO DAILY cholecalciferol (vitamin D3) 50 mcg PO DAILY@1600 ferrous sulfate (iron) 325 mg PO DAILY furosemide 40 mg orally 2 tabls MWF & 1 Tab TTSS; 90 days glipizide ER 10 mg PO BID lancets (OneTouch Delica Plus Lancet) As directed metformin ER 500 mg PO TID [id number] 1 tab PO DAILY oxycodone-acetaminophen 5-325 mg 1 tab PO Q6H PRN 5 days pravastatin 80 mg PO BEDTIME tamsulosin 0.4 mg PO DAILY@1700 90 days warfarin 2 mg See Protocol PO DAILY@1800 warfarin 4 mg See Protocol PO DAILY Tobacco use date assessed: 01/27/25 Fall risk assessment: No Falls in past year Last assessed Fall Risk: 01/27/25 Dental Screening Dental Screen Date: 06/30/24 HPI HPI Comments History of Present Illness Details The patient is a 74 year old individual presenting with PMH of severe ostheoarthrtis, DM, HTN, A fib on Warfarin, HLD, BPH, to establish care and for management of chronic medical conditions. The primary complaint is worsening severe arthritis in the hands, which significantly limits function, requiring assistance with activities of daily living such as showering and writing. The patient describes the sensation in the hands as feeling cold, similar to having been in a snowball fight without gloves. The patient was seen by a light rail signal technician in September 2022 when the symptoms were less severe, and has previously been told by an nuclear medicine specialist that nothing could be done for the hands. The patient also has Charcot arthropathy of the feet and has been attending wound care. The patient is scheduled to have surgery to shave the bone on April 01 and is currently wearing casts to prepare the wound. Additionally, the patient reports chronic back and neck pain, for which Oxycodone is taken. He has been on Oxycodone for long period of time and his symptoms has been well controlled on the current dose. The patient denies any current alcohol use, any history of drug abuse. Past medical history is significant for atrial fibrillation, for which the patient takes warfarin managed by a grouter helper, Dr. Kirkland, and an anticoagulation clinic. The INR is monitored monthly at home, with the most recent level being 2.2. He has history of right sided heart failure. However, a prior cardiac catheterization showed no blockages, and the patient has no history of stents. Other chronic conditions include type 2 diabetes mellitus, hyperlipidemia, benign prostatic hyperplasia, glaucoma which is monitored annually, and a history of a deviated nasal septum. A colonoscopy performed in 2022 and follow- up is needed in 10 years. [facility] Medical History (Updated 01/27/25 @ 12:27 by Elizabeth Ramirez MD) Chronic pain syndrome Diabetic foot ulcer MSSA bacteremia Foot ulcer, right Ambulates with cane Cochlear implant in place Type 2 diabetes mellitus with unspecified complications Essential hypertension Persistent atrial fibrillation Osteoarthritis of left knee Deafness in left ear JUDIE (obstructive sleep apnea) Osteoarthritis Anemia Venous stasis Hard of hearing Obesity GERD (gastroesophageal reflux disease) BPH (benign prostatic hyperplasia) Diabetes Peripheral edema Atrial fibrillation COPD (chronic obstructive pulmonary disease) Chronic a-fib Surgical History (Updated 01/27/25 @ 09:41 by FREDA Pineda) History of ear surgery History of umbilical hernia repair (02/18/24) Hx of total knee arthroplasty History of amputation of toe Hx of total shoulder replacement Hx of colonoscopy (~11/01/22) History of bilateral hip replacements Uses cochlear implant Family History Father No problems noted. Mother Stroke Social History Household Members: Spouse Housing: House Are you a primary healthcare risk control consultant to a significant other at home: No Do you presently have visiting nurse or other home services: No Alcohol intake: former Patient Tobacco Use Status: Former Tobacco user Tobacco use type: Cigarette e-Cigarette/Vaping Use: Never Used Second Hand Smoke Exposure: Yes Advance Directives Date on File: 12/31/19 service: No 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al status: retired 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 Cognitive needs: Yes (walker) Hearing needs: Yes (left ear) Vision needs: Yes (reading glasses) Questionnaire PHQ-9 Over the last 2 weeks, how often have you been bothered by any of the following problems? 1. Little interest or pleasure in doing things: not at all 2. Feeling down, depressed, or hopeless: not at all 3. Trouble falling or staying asleep, or sleeping too much: several days 4. Feeling tired or having little energy: several days 5. Poor appetite or overeating: not at all 6. Feeling bad about yourself - or that you are a failure or have let yourself or your family down: not at all 7. Trouble concentrating on things, such as reading the newspaper or watching television: not at all 8. Moving or speaking so slowly that other people could have noticed. Or the opposite - being so fidgety or restless that you have been moving around a lot more than usual: not at all 9. Thoughts that you would be better off or of hurting yourself in some way: not at all Total score: 2 Depression Screening Interpretation: Negative (Low energy and trouble falling asleep is most likely 2/2 chronic pain.) Depression Screening Done: Yes Source: Developed by Drs. Jose Antonio Ferris, Quita Ceballos, Thierry Beckham and colleagues, with an educational nela from [employer]. Thrive Questionnaire Date Thrive assessed: 01/20/25 I am a: Patient What is your living situation today?: I have a steady place to live Within the past 12 months, did the food you bought not last and you didn't have the money to get more?: Never true Within the past 12 months, did you worry whether your food would run out before you got money to buy more?: Never true Do you have trouble paying for medicines?: No Do you have trouble getting transportation to medical appointments?: No Do you have trouble paying your heating and electricity bill?: No Do you have trouble taking care of your child, family member or friend?: No Do you have trouble with day-to-day activities such as bathing, preparing meals, shopping, managing finances, etc.?: Yes Are you currently unemployed and looking for a job?: No Are you interested in more education?: No Please select the resources that you would like help with: None Currently or been in a relationship where the following occur: No concerns reported THRIVE Score: 0 AUDIT C Alcohol Use Questionnaire (AUDIT-C) 1. How often do you have a drink containing alcohol?: Never Total Score: 0 BRITTNEY-7 AMB Questionnaire BRITTNEY-7 Date BRITTNEY - 7 assessed: 09/29/24 Feeling nervous, anxious, or on edge: 0 = Not at all Not being able to stop or control worryin = Not at all Worrying too much about different things: 0 = Not at all Trouble relaxin = Not at all Being so restless that it is hard to sit still: 0 = Not at all Becoming easily annoyed or irritable: 0 = Not at all Feeling afraid as if something awful might happen: 0 = Not at all Total BRITTNEY-7 score (0-4 normal; 5-9 mild; 10-14 moderate; 15-21 severe): 0 Source: Developed by Drs. Jose Antonio Ferris, Quita Ceballos, Thierry Beckham and colleagues, with an educational nela from [employer]. Review of Systems Const Details: As per HPI. Physical exam (Primary Care) Vital Signs: Last Vital Signs Temp 97.1 F 01/27/25 09:27 Pulse 93 01/27/25 09:27 BP 132/70 01/27/25 09:27 Pulse Ox 96 01/27/25 09:27 Oxygen Delivery Method Room Air 01/27/25 09:27 BMI result Body Mass Index 40.3 Tobacco/Smoking Status: Tobacco use Status Tobacco use date assessed 01/27/25 01/27/25 09:27 Patient Tobacco Use Status Former Tobacco user 01/27/25 09:24 Tobacco use type Cigarette 01/27/25 09:24 e-Cigarette/Vaping Use Never Used 01/27/25 09:24 PHQ-9: PHQ-9 Score PHQ-9: Total score 2 01/27/25 09:27 Depression Screening Interpretation: Negative (Low energy and trouble falling asleep is most likely 2/2 chronic pain.) Thrive Assessment: Date of Thrive Assessment Date Thrive assessed 01/20/25 01/27/25 09:24 Currently or been in a relationship where the following occur: No concerns reported Const Other: Pertinent findings are in BOLD GENERAL APPEARANCE NAD, activity normal for age, well developed/ well nourished, no cyanosis, pallor, or diaphoresis. EYES lids/conjunctiva normal. EARS/NOSE/THROAT Mucous membranes moist, nares normal, lips/teeth normal uvula midline without oral pharyngeal erythema, exudate or swelling TMs normal bilaterally. No lymphangitis/lymphedema. HEAD/NECK normocephalic atraumatic, no facial trauma, neck is supple. RESPIRATORY respiratory effort normal, speaks in full sentences, no tripod position, no accessory muscle use. Lungs clear to auscultation without rhonchi, wheezes, rales CARDIAC Regular rate and rhythm, no edema. ABDOMINAL Soft, ND/NT. No evidence of fluid wave. No pulsatile masses on exam, rebound tenderness, Bradshaw sign or pain over Mcburney's point. MUSCLES/EXTREMITIES No abnormal range of motion, no swelling. Severe bilateral hand deformities related to OA. Right leg wrapped in hoa and special boot. Left leg with swelling and skin wounds 2/2 stasis dermatitis. SKIN Warm, pink and dry. No rashes, dermatoses, petechiae or lesions. As under extremities section. NEUROLOGICAL Speech is clear and appropriate. Normal level of consciousness. Gait and coordination are normal. 5/5 strength in all extremities. PSYCH Normal mood and affect. Judgement/competence is appropriate Results AMB Hemoglobin A1c AMB Hemoglobin A1c 6.9 % Last Edit by FREDA Pineda on 01/27/25 10:02 Coding Level of Care Code Est Pt Level 4 (37289) Diagnoses Primary osteoarthritis of both hands M19.041; M19.042 Osteoarthritis location: hand Osteoarthritis type: primary Laterality: bilateral Paroxysmal atrial fibrillation I48.0 Atrial fibrillation type: paroxysmal Charcot arthropathy M14.60 Type 2 diabetes mellitus without complication, without long-term current use of insulin E11.9 Diabetes mellitus type: type 2 Diabetes mellitus exterminator helper insulin use: without senior care use Diabetes mellitus complication status: without complication Chronic pain syndrome G89.4 Time Spent (min) 45 Assessment & Plan Assessment & Plan (1) Osteoarthritis: Code(s): M19.90 - Unspecified osteoarthritis, unspecified site Category: Medical Qualifiers: Osteoarthritis location: hand Osteoarthritis type: primary Laterality: bilateral Qualified Code(s): M19.041 - Primary osteoarthritis, right hand; M19.042 - Primary osteoarthritis, left hand Plan: - The patient's hand arthritis has worsened with increased functional limitations. - A referral will be placed to Rheumatology for re-evaluation, as the condition has progressed since the last visit and to explore further management options such as intra-articular steroid injections. (2) Atrial fibrillation: Comment: coumadin Code(s): I48.91 - Unspecified atrial fibrillation Category: Medical Qualifiers: Atrial fibrillation type: paroxysmal Qualified Code(s): I48.0 - Paroxysmal atrial fibrillation Plan: - The patient is on warfarin, which is managed by the patient's grouter helper and an anticoagulation clinic. - The INR is monitored monthly at home and is within the therapeutic range. - Continue current management with specialty care. (3) Charcot arthropathy: Code(s): M14.60 - Charcot's joint, unspecified site Category: Medical Plan: - The patient has been followed by wound care and is scheduled for foot surgery to shave the bone on April 01. - The patient will continue care with the floral specialist for this condition. (4) Diabetes: Comment: IDDM Code(s): E11.9 - Type 2 diabetes mellitus without complications Category: Medical Qualifiers: Diabetes mellitus type: type 2 Diabetes mellitus exterminator helper insulin use: without senior care use Diabetes mellitus complication status: without complication Qualified Code(s): E11.9 - Type 2 diabetes mellitus without complications Plan: - The in-office Hemoglobin A1c was 6.9%, indicating good glycemic control. - Continue current medication regimen including metformin and glipizide. - The patient was reminded to complete a previously ordered urine test for proteinuria. - The patient maintains annual follow-up with an eye doctor and podiatry, which is important for diabetic retinopathy screening. (5) Chronic pain syndrome: Code(s): G89.4 - Chronic pain syndrome Category: Medical Plan: - The patient's chronic back and neck pain is managed with oxycodone/acetaminophen 5/325 mg every 6 hours. - The current oxycodone dose is deemed appropriate for the level of severe pain from osteoarthritis and will be continued. - A prescription for oxycodone will be provided today, as the patient will run out of medication tomorrow. - The patient was counseled that ongoing management of chronic opioid therapy will require monitoring, which may include future random urine drug screens, pain contract and pill counts. - We will get pain contract next visit. Plan I introduced myself as the patient's new primary care physician and obtained consent to record our conversation for note-taking purposes. I reviewed the patient's primary concern of worsening hand arthritis and explained my plan to refer the patient back to Rheumatology for an expert opinion, noting that they may be able to offer other treatments like injections, as the condition has progressed since the patient's last evaluation. We discussed the management of the patient's chronic pain and the need for an o xycodone refill. I find the patient's current stable, low dose to be appropriate for the severity of the patient's pain from osteoarthritis, and I will continue to prescribe it. I informed the patient that as part of standard practice for long-term opioid management, we might need to perform random urine drug testing or pill counts in the future. I provided dietary counseling and suggested that eliminating dairy products like butter and cheese, as well as reducing red meat consumption, could aid in weight loss and potentially improve joint health. We established a follow-up plan for an appointment in three months to review the patient's progress after the foot surgery and rheumatology consultation, and another appointment in six months for the annual physical exam. Orders: Orders Microalbumin, Random (w Creat) Today E11.9 - Type 2 diabetes mellitus without complications AMB Hemoglobin A1c Today Z13.9 - Encounter for screening, unspecified Referrals Rheumatology Referral M19.90 - Unspecified osteoarthritis, unspecified site Medications: Changed From oxycodone-acetaminophen 5-325 mg Partial Fill upon patient request. 1 tab PO Q6H 5 days PRN 20 tabs 0RF pain To oxycodone-acetaminophen 5-325 mg Partial Fill upon patient request. 1 tab PO Q6H 30 days PRN 120 tabs 0RF pain Refilled oxycodone-acetaminophen 5-325 mg Partial Fill upon patient request. 1 tab PO Q6H PRN 120 tabs 0RF pain 30 days
[2025-01-27 09:27] VITALS: BP 132/70; PULSE 93; TEMP 36.2; O2SAT 96; BMI 40.3
--- OUTSIDE RECORDS SUMMARY | 2025-01-27 09:48 | XMS_ITS | Data Portability ---
Author Organization [facility], Allergy Address [address] [place] [address] Care Team Providers Care Drilling Manager Name Role Phone EMMA THOMAS Primary Care [...] Sensorine ural hearing loss of bilateral ears 689254396 Active 2013 SNHL Bilaterall y; CMS Risk: low risk Note: Date Diagnosed: 12/10/2013 9:18 AM (389.18) Not Available [facility] 4 02:31:47 Bilateral sensory hearing loss 154690112 Active 2013 Hearing loss: Sensory hearing loss, bilateral; Location: left Note: Date Diagnosed: 12/16/2013 11:26 AM (389.11) Not Available [facility] 4 02:31:45 Postopera tive follow-up visit Active 2013 Post op; Note: Date Diagnosed: 12/16/2013 11:26 AM (V67.00) Not Available [facility] 4 02:31:42 Allergic rhinitis caused by pollen 89813168 Active 2013 Vasomotor rhinitis; Note: Date Diagnosed: 01/10/2014 2:23 PM (477.0) Not Available [facility] 4 02:31:46 Gastroeso phageal reflux disease without esophagit is 561539853 Active 2014 Gastro-eso phageal reflux disease without esophagiti s; Note: Date Diagnosed: 01/16/2015 10:07 AM (K21.9) Not Available [facility] 4 02:31:43 Deviated nasal septum 924847538 Active 2014 Septal Deviation; Note: Date Diagnosed: 08/05/2014 11:13 AM (470) ; Start Date : 08/05/2014 Deviated nasal septum; Note: Date Diagnosed: 01/16/2015 9:52 AM (J34.2) Not Available [facility] 4 02:31:48 Hypertrop hy of nasal turbinate s 41338957 Active 2014 Nasal turbinate hypertroph y; Note: Date Diagnosed: 02/16/2014 12:31 PM (478.0) ; Start Date : 02/16/2014 Hypertrop hy of nasal turbinates ; Note: Date Diagnosed: 01/16/2015 9:52 AM (J34.3) Not Available [facility] 4 02:31:37 Obstructi ve sleep apnea syndrome 81394181 Active 2015 Obstructiv e sleep apnea (adult) (pediatric ); Note: Date Diagnosed: 05/04/2015 4:55 PM (G47.33) Not Available [facility] 4 02:31:48 Simple obesity 315792842 Active 2016 Other obesity due to excess calories; Note: Date Diagnosed: 10/09/2016 1:21 PM (E66.09) Not Available [facility] 4 02:31:33 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 Medical Equipment None Reported. Allergies Allergen ID Allergen Name Allergen Category Reaction Reaction Severity Criticality Documentation Date Start Date Code Code System Note Provider Name and Address Organization Details Recorded Time 09133 Product containin g penicilli n (product) medicatio n other Not available Not available 07/22/2023 81192 8001 SNOMED React ion: Unkno wn; Not Available [facility] 4 00:23:22 Medications Name Sig Start Date Stop Date Status Note LastModified by Organization Details LastModified Time furosemid e 40 mg tablet active Medicati on ID: [id number] B rand Name: furosemi de Send Method: E-Prescr ibed Sub s Allowed: subs OK Medic ationGen ericName : furosemi de Not Available Not Available Not Available metolazon e 2.5 mg tablet active Not Available Not Available Not Available metformin 500 mg tablet 05/11 completed Medicati on ID: [id number] Br and Name: metformi n Send Method: [...] ous solution 05/11 completed Medicati on ID: [id number] D uration Value: 28 Brand Name: Lantus U-100 Insulin Send Method: E-Prescr ibed Sub s Allowed: subs OK Speci al Instruct ion: INJECT 10 UNITS SUBCUTAN EOUSLY AT BEDTIME DISCAR D VIAL AFTER 28 DAYS Medic ationGen ericName : Lantus U-100 Insulin Not Available Not Available Not Available digoxin 250 mcg (0.25 mg) tablet 05/11 completed Medicati on ID: [id number] Br and Name: digoxin Send Method: E-Prescr ibed Sub s Allowed: subs OK Medic ationGen ericName : digoxin Not Available Not Available Not Available omeprazol e 40 mg capsule,d elayed release active Medicati on ID: [id number] B rand Name: omeprazo le Send Method: E-Prescr ibed Sub s Allowed: subs OK Medic ationGen ericName : omeprazo le Not Available Not Available Not Available tramadol 50 mg tablet 05/11 completed Medicati on ID: [id number] Br and Name: tramadol Send Method: E-Prescr ibed Sub s Allowed: subs OK Medic ationGen ericName : tramadol Not Available Not Available Not Available warfarin 4 mg tablet active Not Available Not Available Not Available Nexium 20 mg capsule,d elayed release 1 capsule by mouth once a day 05/11 completed Medicati on ID: [id number] Br and Name: Nexium S end Method: [...] 0.4 mg capsule active Medicati on ID: [id number] B rand Name: tamsulos in Send Method: E-Prescr ibed Sub s Allowed: subs OK Medic ationGen ericName : tamsulos in Not Available Not Available Not Available glipizide ER 2.5 mg tablet, extended release 24 hr 05/11 completed Medicati on ID: [id number] Br and Name: glipizid e Send Method: E-Prescr ibed Sub s Allowed: subs OK Medic ationGen ericName : glipizid e Not Available Not Available Not Available warfarin 2 mg tablet active Medicati on ID: [id number] B rand Name: warfarin Send Method: E-Prescr ibed Sub s Allowed: subs OK Medic ationGen ericName : warfarin Not Available Not Available Not Available fluticaso ne propionat e 50 mcg/actua tion nasal spray,andres pension 05/11 completed Medicati on ID: [id number] D uration Value: 30 Brand Name: fluticas one propiona te Send Method: E-Prescr ibed Sub s Allowed: subs OK Speci al Instruct ion: USE 1 SPRAY IN EACH NOSTRIL TWICE A DAY Medi cationGe nericNam e: fluticas one propiona te Not Available Not Available Not Available metformin ER 500 mg tablet,ex tended release 24 hr active Medicati on ID: [id number] B rand Name: metformi n Send Method: E-Prescr ibed Sub s Allowed: subs OK Medic ationGen ericName : metformi n Not Available Not Available Not Available ipratropi um bromide 21 mcg (0.03 %) nasal spray Inhale 2 spray into both nostrils three times a day as directed 05/11 completed Medicati on ID: [id number] Br and Name: Atrovent Send Method: E-Prescr [...] mcg tablet 05/11 completed Medicati on ID: [id number] Br and Name: Centrum Silver Ultra Men's Se nd Method: E-Prescr ibed Sub s Allowed: subs OK Medic ationGen ericName : Centrum Silver Ultra Men's Not Available Not Available Not Available Vitals Date Recorded Body height Body mass index (BMI) Body weight Provider Name and Address Organization Details Last Updated DateTime 08/14/2023 172.72 cm 38 kg/m2 667718.09 g Tevin Koch [place] - [facility] 08/14/2023 10:01:01 Social History None recorded. Functional Status None recorded. Mental Status None recorded. Family History Nothing Reported. Medical History No medical history recorded. Past Encounters Encounter ID Performer Location Encounter Start Date Encounter Closed Date Diagnosis/Indication Diagnosis SNOMED-CT Code Diagnosis ICD10 Code Diagnosis IMO Codes Diagnosis Note [id number] RAMYA ARNDT MD [facility] [address] [place] [address] 08/14/2023 09:50:50 08/14/2023 10:16:30 Benign neoplasm of parotid gland 01538141 D11.0 Health Concerns Section Related Observation LastModified by Organization Detai ls LastModified Time None Recorded Concern Status LastModified by Organization Details LastModified Time None Recorded Advance Directives Directive None Recorded Payers Insurance Date Sequence Insurance Name Policy Number Policy Casarez Covered Member ID Casarez Member ID Guarantor Name 07/28/2023 2 [place] Leonardo Pang [id number] Leonardo Pang 08/14/2023 1 [place] [facility] Leonardo Pang [id number] Leonardo Pang Notes Date Note Type Note Provider Name and Address Organization Details Recorded Time 08/14/2023 text/html ROS as noted in the HPI left parotid FNA 05/17/21 - warthin tumorct neck w contrast at [place] 04/27/21left parotid 2.8cm mass. compare with prior [...] cochlear implant with Dr Demetrio ARNDT MD [address] [place] [address], [phone], [facility] - [facility] 08/14/2023 10:15:11
--- OUTSIDE RECORDS SUMMARY | 2025-01-27 09:48 | XMS_ITS | Patient Health Record ---
Author Organization [facility] Address [address] [place] [address] Care Team Providers Care Ring Maker Name Role Phone Zohreh (RETIRED) Darien LI Primary Care Provide Griffin Gustafson Jr Unavailable Allergies Allergen (clinical drug ingredient) Drug/Non Drug Allergy documented on EMR Reaction Allergy Type Onset Date Status PCN (uncoded) Unknown Allergy Active Reason For Referral No Information Medications Medication SIG (Take, Route, Frequency, Duration) Notes Start Date End Date Status Carvedilol 12.5 MG Tablet 1 Orally BID Active Vitamin D3 25 MCG (1000 UT) Tablet 1 tablet Orally Once a day; Duration: 30 day(s) Active Warfarin Sodium 6 MG Tablet as directed Orally Once a day Active Tamsulosin HCl 0.4 MG Capsule 1 capsule Orally Once a day Active Pravastatin Sodium 80 MG Tablet 1 tablet Orally Once a day A ctive Iron 325 (65 Fe) MG Tablet 1 tablet Orally Once a day Active Multi Vitamin - Tablet 1 tablet Orally O nce a day; Duration: 30 day(s) Active Lantus SoloStar 100 UNIT/ML Solution Pen-injector 25 units Subcutaneous QHS Ac tive glipiZIDE 5 MG Tablet 2 tablet Orally Tw ice a day Active metFORMIN HCl 500 MG Tablet 2AM,1PM Orally Twice a day A ctive Furosemide 40 MG Tablet 1 tablet Orally Once a day Active oxyCODONE-Acetaminophen 5-325 MG Tablet 1 tablet as needed Orally 5 x a day Active MiraLax (colon prep) 17 GM/SCOOP Powder mixed with Gatorade or Crystal Light Orally begin at 5:00 p.m. the day before the procedure; Duration: 1 day 08/28/2022 Active Centrum Silver - Tablet 1 Orally QD Active dilTIAZem HCl ER 240 MG Capsule Extended Release 24 Hour 1 capsule on an empty stomach in the morning Orally Once a day Active Digoxin 0.25 MG/ML Tablet 1 tablet Orally Once a day Active Immunizations Vaccine Route Administration Date Status Comme nts Influenza Unknown 01/01/2022 Administered Social History Social History Additional Details Category Social Info Options Details Miscellaneous: Marital status: Occupation: Disabled Problems Problem Type SNOMED Code ICD Code Onset Dates Problem Status W/U Status Risk Notes Problem Colon cancer screening (952945607) Colon cancer screening (Z12.11) Active confirmed Problem Long-term current use of 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) 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 (Z79.01) Active confirmed Problem History of polyp of colon (situation) (974402443) Personal history of colonic polyps (Z86.010) Active confirmed Problem Pre-procedure evaluation check (419191648) Encounter for other preprocedural examination (Z01.818) Active confirmed Problem Long-term current use of insulin (670825533) 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
--- OUTSIDE RECORDS SUMMARY | 2025-01-27 09:48 | XMS_ITS | Clinical Summary ---
Author Organization [facility] Address [address] [place] [address] Care Team Providers Care Yard Supervisor Name Role Phone Darien Bruner MD Primary Care Provider [phone] Allergies Active Allergy Reactions Criticality Noted Date Comments Penicillins Unknown/Patient and Family Unable to Define Medium 02/10/2024 Medications SUPPLY DME MISCIndications :Pain in right ankle and joints of right foot RT ANKLE / Foot CHEVAK Boot Dx: Diabetic Neuropathy, RT Plantar foot [...] topic Insurance MEDICARE PART A & [place] [id number] Care Teams Yard Supervisor Relationship Specialty Start Date End Date Darien Bruner MD [address] [place] [address] [place] [address] PCP - General 01/19/24
== END 2025-01-27 10:30 | disposition home or self-care (01) ==
LOC: HO.HMCH 08:38
PROVIDERS: Visit Provider Internal Medicine
DX: M19.041 Primary osteoarthritis, right hand (principal); I48.0 Paroxysmal atrial fibrillation; E11.9 Type 2 diabetes mellitus without complications; M19.042 Primary osteoarthritis, left hand; M14.60 Charcot's joint, unspecified site; G89.4 Chronic pain syndrome

== ENCOUNTER → 2025-01-27 08:37 | Outpatient (BNVA) | payer MEDICARE, SELFPAY | PROVIDERS: Visit Provider Internal Medicine | DX: M19.041 Primary osteoarthritis, right hand (principal); M19.042 Primary osteoarthritis, left hand; I48.0 Paroxysmal atrial fibrillation; E11.9 Type 2 diabetes mellitus without complications; G89.4 Chronic pain syndrome; M14.60 Charcot's joint, unspecified site | CPT/HCPCS: 83036; 99212 ==

== ENCOUNTER 2025-01-31 13:09 | Outpatient (REF) | payer MEDICARE, SELFPAY ==
[2025-01-31 15:11] LABS: Appearance Urine Clear; Glucose Urine UA Negative (Negative); PH 5.5 (5.0-9.0); Specific Gravity - Urine 1.015 (1.005-1.025); UMIC TRIGGER UA YES
[2025-01-31 16:03] LABS: PSA,Total (Free>4and<10) 1.15 ng/mL (0.00-4.00)
[2025-01-31 17:22] LABS: Microalbum/Creatinine Ratio Ur 63.1 ug/mg cr (<30)
--- OUTSIDE RECORDS SUMMARY | 2025-01-31 17:48 | XMS_ITS | Clinical Summary ---
Author Organization [facility] Address [address] [place], [place] [phone] Phone Care Team Providers Care Engineering Analyst Name Role Phone Darien Bruner MD [...] [place] [address] MED[place] [id number] [place] MEDEX SUPPLEMENT [facility] [place] [id number] [place] PART A & B [facility] [address] MEDICARE PART A & B [place] [address] MEDICARE PART A & B [place]PP[place] [address] MEDICARE PART A & B [place] MEDEX SUPPLEMENT [address] MEDICARE PART A & B [place] [address] MEDICARE PART A & B Member Subscriber Plan / Payer (Ef fective 2021-) Name:Leonardo Pang Member ID:[id number] Relation to Subscriber:Self Name:Leonardo Pang Subscriber ID:[id number] Payer ID:[id number] Group ID:Not on file Type:Medicare Address: eleni [address] [place] [place] MEDEX SUPPLEMENT MEDICARE PART A & B [employer] [place] MED[employer] SUPPLE[place] MEDICARE PART A & B [place] MEDEX SUPPLEMENT Care Teams Engineering Analyst Relationship Specialty Start Date End Date Darien Bruner MD [address] [place] [address] [place] [address] PCP - General Internal Medicine 05/31/21 Additional Source Comments The information contained in this document represents components of the legal health record. It is not the complete legal health record.[facility]
--- OUTSIDE RECORDS SUMMARY | 2025-01-31 17:48 | XMS_ITS | Clinical Summary ---
Author Organization [facility] Address [address] [place] [address] Care Team Providers Care Senior Adults Director Name Role Phone Darien Bruner MD Primary Care Provider [phone] Allergies Active Allergy Reactions Criticality Noted Date Comments Penicillins Unknown/Patient and Family Unable to Define Medium 02/10/2024 Medications SUPPLY DME MISCIndications :Pain in right ankle and joints of right foot RT ANKLE / Foot JENA Boot Dx: Diabetic Neuropathy, RT Plantar foot [...] topic Insurance MEDICARE PART A & [place] [id number] Care Teams Senior Adults Director Relationship Specialty Start Date End Date Darien Bruner MD [address] [place] [address] [place] [address] PCP - General 01/19/24
--- OUTSIDE RECORDS SUMMARY | 2025-01-31 17:48 | XMS_ITS | Clinical Summary ---
Author Organization [facility] Address [address] [place] [address] Phone Care Team Providers Care Wood Shop Teacher Name Role Phone Darien Bruner MD Primary Care Provider [phone] Allergies Active Allergy Reactions Criticality Noted Date Comments Penicillins Rash 10/10/2023 Active Problems Problem Noted Date Diagnosed Date Acquired rocker bottom foot of right lower extre mity 11/23/2024 Exostosis of right foot 11/23/2024 Equinus contracture of right ankle 11/23/2024 Encounters Date Type Department Care Team Description 11/26/2024 Telephone Orthopedic Surgery [facility] [address] [address] [place] DPM 11/23/2024 8:45 AM EDT Consult Orthopedic Surgery [facility] [address] [address] [place] DPHolli Charcot arthropathy of forefoot (Primary Dx); Acquired rocker bottom foot of right lower extremity; Exostosis of right foot; Equinus contracture of right ankle; Midfoot ulceration, right, with fat layer exposed ([facility]/HCC V24, [facility] V28) from Last 3 Months Medical History [...] alve insufficiency Chronic diastolic congestive heart failure ([facility] V24, [facility] V28) DX:Chronic diastoli c congestive heart failure ([facility]) Tachycardia, unspecified DX:Tach ycardia, unspecified MRSA (methicillin resistant Staphylococcus aureus) DX:MRSA (methicillin resista nt Staphylococcus aureus) Chronic atrial fibrillation ([facility] V24, [facility] V28) DX:Chronic atrial fibrillati on ([facility]) Iron deficiency anemia, unspecified DX:Iron deficiency anemia, [...] Description 04/01/2025 7:30 AM EST Hospital Encounter [facility] [address] [place] [phone] [place] DPM [address] [address] 04/01/2025 7:30 AM EST - 04/01/2025 9:30 AM EST Surgery [facility] [address] [place] [address] [place] DPM 175 [facility] [place] [address] [place] [address] OSTEOTOMY TARSAL [[id number] (CPT )] 04/14/2025 9:00 AM EST Office Visit Orthopedic Surgery - [place] 250 175 [facility] [address] [place] [phone] [place] DPM 175 [facility] [address] [place] [address] Scheduled Procedures Name Priority Associated Diagnoses Date/Ti [...] Date/Time Associated Diagnosis Comments XR FOOT 3+ VIEWS BILAT Routine 11/23/2024 9:06 AM EDT Charcot arthropathy of forefoot from Last 3 Months Results * XR Foot 3+ Views bilat (11/23/2024 9:06 AM EDT) Anatomical Region Laterality Modality Lower Extremities, Foot Bilateral Computed Radiography Narrative 01/17/2025 8:56 PM EST Left foot 3 views weightbearing: Severe Charcot arthropathy with deformities of the digits 1 through 5. Midtarsal joint arthrosis without dislocation. Right foot Charcot arthropathy of the midtarsal joint and hindfoot with dislocation of the talonavicular joint above the midtarsal joint. Severe deformities of the forefoot. No obvious fractures us [place] DPM IMG XR PROCEDURES Final Res ult from Last 3 Months Insurance MEDICARE [facility] Care Teams Wood Shop Teacher Relationship Specialty Start Date End Date Darien Bruner MD [address] [place] [address] Dr [place] PCP - General 09/04/23
--- OUTSIDE RECORDS SUMMARY | 2025-01-31 17:48 | XMS_ITS | Data Portability ---
Author Organization [place] - [facility], Allergy Address [address] [place] [id number] Care Team Providers Care Warehouse Handler Name Role Phone EMMA THOMAS Primary Care [...] Sensorine ural hearing loss of bilateral ears [id number] Active 2013 SNHL Bilaterall y; CMS Risk: low risk Note: Date Diagnosed: 12/10/2013 9:18 AM (389.18) Not Available [facility] 4 02:31:47 Bilateral sensory hearing loss 630628170 Active 2013 Hearing loss: Sensory hearing loss, bilateral; Location: left Note: Date Diagnosed: 12/16/2013 11:26 AM (389.11) Not Available [facility] 4 02:31:45 Postopera tive follow-up visit Active 2013 Post op; Note: Date Diagnosed: 12/16/2013 11:26 AM (V67.00) Not Available [facility] 4 02:31:42 Allergic rhinitis caused by pollen 36770229 Active 2013 Vasomotor rhinitis; Note: Date Diagnosed: 01/10/2014 2:23 PM (477.0) Not Available [facility] 4 02:31:46 Gastroeso phageal reflux disease without esophagit is 320169973 Active 2014 Gastro-eso phageal reflux disease without esophagiti s; Note: Date Diagnosed: 01/16/2015 10:07 AM (K21.9) Not Available [facility] 4 02:31:43 Deviated nasal septum 874356249 Active 2014 Septal Deviation; Note: Date Diagnosed: 08/05/2014 11:13 AM (470) ; Start Date : 08/05/2014 Deviated nasal septum; Note: Date Diagnosed: 01/16/2015 9:52 AM (J34.2) Not Available [facility] 4 02:31:48 Hypertrop hy of nasal turbinate s 18812929 Active 2014 Nasal turbinate hypertroph y; Note: Date Diagnosed: 02/16/2014 12:31 PM (478.0) ; Start Date : 02/16/2014 Hypertrop hy of nasal turbinates ; Note: Date Diagnosed: 01/16/2015 9:52 AM (J34.3) Not Available [facility] 4 02:31:37 Obstructi ve sleep apnea syndrome 31798837 Active 2015 Obstructiv e sleep apnea (adult) (pediatric ); Note: Date Diagnosed: 05/04/2015 4:55 PM (G47.33) Not Available [facility] 4 02:31:48 Simple obesity 158158243 Active 2016 Other obesity due to excess calories; Note: Date Diagnosed: 10/09/2016 1:21 PM (E66.09) Not Available [facility] 4 02:31:33 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 Medical Equipment None Reported. Allergies Allergen ID Allergen Name Allergen Category Reaction Reaction Severity Criticality Documentation Date Start Date Code Code System Note Provider Name and Address Organization Details Recorded Time 08874 Product containin g penicilli n (product) medicatio n other Not available Not available 07/22/2023 59300 8001 SNOMED React ion: Unkno wn; Not Available [facility] 4 00:23:22 Medications Name Sig Start Date Stop Date Status Note LastModified by Organization Details LastModified Time furosemid e 40 mg tablet active Medicati on ID: [id number] B rand Name: furosemi de Send Method: E-Prescr ibed Sub s Allowed: subs OK Medic ationGen ericName : furosemi de Not Available Not Available Not Available metolazon e 2.5 mg tablet active Not Available Not Available Not Available metformin 500 mg tablet 05/11 completed Medicati on ID: [id number] Br and Name: metformi n Send Method: [...] ous solution 05/11 completed Medicati on ID: [id number] D uration Value: 28 Brand Name: Lantus U-100 Insulin Send Method: E-Prescr ibed Sub s Allowed: subs OK Speci al Instruct ion: INJECT 10 UNITS SUBCUTAN EOUSLY AT BEDTIME DISCAR D VIAL AFTER 28 DAYS Medic ationGen ericName : Lantus U-100 Insulin Not Available Not Available Not Available digoxin 250 mcg (0.25 mg) tablet 05/11 completed Medicati on ID: [id number] Br and Name: digoxin Send Method: E-Prescr ibed Sub s Allowed: subs OK Medic ationGen ericName : digoxin Not Available Not Available Not Available omeprazol e 40 mg capsule,d elayed release active Medicati on ID: [id number] B rand Name: omeprazo le Send Method: E-Prescr ibed Sub s Allowed: subs OK Medic ationGen ericName : omeprazo le Not Available Not Available Not Available tramadol 50 mg tablet 05/11 completed Medicati on ID: [id number] Br and Name: tramadol Send Method: E-Prescr ibed Sub s Allowed: subs OK Medic ationGen ericName : tramadol Not Available Not Available Not Available warfarin 4 mg tablet active Not Available Not Available Not Available Nexium 20 mg capsule,d elayed release 1 capsule by mouth once a day 05/11 completed Medicati on ID: [id number] Br and Name: Nexium S end Method: [...] 0.4 mg capsule active Medicati on ID: [id number] B rand Name: tamsulos in Send Method: E-Prescr ibed Sub s Allowed: subs OK Medic ationGen ericName : tamsulos in Not Available Not Available Not Available glipizide ER 2.5 mg tablet, extended release 24 hr 05/11 completed Medicati on ID: [id number] Br and Name: glipizid e Send Method: E-Prescr ibed Sub s Allowed: subs OK Medic ationGen ericName : glipizid e Not Available Not Available Not Available warfarin 2 mg tablet active Medicati on ID: [id number] B rand Name: warfarin Send Method: E-Prescr ibed Sub s Allowed: subs OK Medic ationGen ericName : warfarin Not Available Not Available Not Available fluticaso ne propionat e 50 mcg/actua tion nasal spray,andres pension 05/11 completed Medicati on ID: [id number] D uration Value: 30 Brand Name: fluticas one propiona te Send Method: E-Prescr ibed Sub s Allowed: subs OK Speci al Instruct ion: USE 1 SPRAY IN EACH NOSTRIL TWICE A DAY Medi cationGe nericNam e: fluticas one propiona te Not Available Not Available Not Available metformin ER 500 mg tablet,ex tended release 24 hr active Medicati on ID: [id number] B rand Name: metformi n Send Method: E-Prescr ibed Sub s Allowed: subs OK Medic ationGen ericName : metformi n Not Available Not Available Not Available ipratropi um bromide 21 mcg (0.03 %) nasal spray Inhale 2 spray into both nostrils three times a day as directed 05/11 completed Medicati on ID: [id number] Br and Name: Atrovent Send Method: E-Prescr [...] mcg tablet 05/11 completed Medicati on ID: [id number] Br and Name: Centrum Silver Ultra Men's Se nd Method: E-Prescr ibed Sub s Allowed: subs OK Medic ationGen ericName : Centrum Silver Ultra Men's Not Available Not Available Not Available Vitals Date Recorded Body height Body mass index (BMI) Body weight Provider Name and Address Organization Details Last Updated DateTime 08/14/2023 172.72 cm 38 kg/m2 982185.09 g Tevin Koch [place] - [facility] [...] Note [id number] RAMYA ARNDT MD [facility] [address] [place] [address] 08/14/2023 09:50:50 08/14/2023 10:16:30 Benign neoplasm of parotid gland 16705709 D11.0 Health Concerns Section Related Observation LastModified by Organization Detai ls LastModified Time None Recorded Concern Status LastModified by Organization Details LastModified Time None Recorded Advance Directives Directive None Recorded Payers Insurance Date Sequence Insurance Name Policy Number Policy Casarez Covered Member ID Casarez Member ID Guarantor Name 07/28/2023 2 [place] Leonardo Pang [id number] Leonardo Pang 08/14/2023 1 MEDICARE B-[place]: [facility] Leonardo Pang [id number] Leonardo Pang Notes Date Note Type Note Provider Name and Address Organization Details Recorded Time 08/14/2023 text/html ROS as noted in the HPI left parotid FNA 05/17/21 - warthin tumorct neck w contrast at [place] 04/27/21left parotid 2.8cm mass. compare with prior [...] years priorleft ear cochlear implant with Dr Demetiro ARNDT MD [address] [place] [address], [phone], [facility] - [facility] 08/14/2023 10:15:11
== END 2025-01-31 13:10 | disposition home or self-care (01) ==
LOC: HO.LAB 13:09
PROVIDERS: Internal Medicine; PCP Internal Medicine; Visit Provider Internal Medicine
DX: E11.9 Type 2 diabetes mellitus without complications (principal); I50.813 Acute on chronic right heart failure; Z12.5 Encounter for screening for malignant neoplasm of prostate
CPT/HCPCS: 36415; 81001; 81003; 82043; 82570; 84153

== ENCOUNTER 2025-02-09 14:31 | Outpatient (AMB) | payer MEDICARE, SELFPAY ==
--- OUTSIDE RECORDS SUMMARY | 2024-02-23 03:00 | XMS_ITS ---
Author Organization [facility] Address [address] [place] [address] Care Team Providers Care Liner Helper Name Role Phone Young Bunn Primary Care Provider [phone] Ronel Leon [phone] Encounters Encounter Location Date Provider Diagnosis [address] [address] 02/23/2024 Ronel Leon Plan Of Treatment Next Appt Details Provider Name:Ronel Leon , 03/17/2025 08:30:00 AM, [address] [place], [address], Progress Notes * Leonardo GRIFFINDOB:1950 (74 yo M)Acc No.[id number]:02/23/2024 Progress Note Patient: Holli HERNANDEZLeonardo Provider: Rashard Leon DPM :1950 A ge:73 Y S ex:Male Date:02/23/2024 Address:[address] [place] [address] [place], [id number] Pcp:Young Bunn Subjective: * Chief Complaints: * * Medical History: Objective: * Vitals: Assessment: Plan: * Treatment: * Images: * The named appointment provid er may or may not be the originator of this progress note, and it is not deemed complete until electronically signed by the appointment provider. Sign off status: Pending * Provider: Rashard Leon DPM Date: 1 04/25/2023 Generated for René temple/Melissa/Patel on: 04/12/2024 05:28 PM EST
--- OUTSIDE RECORDS SUMMARY | 2024-10-25 06:15 | XMS_ITS ---
Author Organization [facility] Address [address] [place] [address] Care Team Providers Care Hotel Maintenance Worker Name Role Phone Young Bunn Primary Care Provider Ronel Leon [phone] Encounters Encounter Location Date Provider Diagnosis [address] [address] 10/25/2024 Ronel Leon Plan Of Treatment Next Appt Details Provider Name:Ronel Leon , 03/17/2025 08:30:00 AM, [address] [place], [address], Progress Notes * Leonardo GRIFFINDOB:1950 (74 yo M)Acc No.[id number]:10/25/2024 Progress Note Patient: Holli HERNANDEZLeonardo Provider: Rashard Leon DPM :1950 A ge:74 Y S ex:Male Date:10/25/2024 Address:[address] [place] [address] [id number] Pcp:Young Bunn Subjective: * Chief Complaints: * * Medical History: Objective: * Vitals: Assessment: Plan: * Treatment: * Images: * The named appointment provid er may or may not be the originator of this progress note, and it is not deemed complete until electronically signed by the appointment provider. Sign off status: Pending * Provider: Rashard Leon DPM Date: 0 10/25/2024 Generated for René temple/Melissa/Patel on: 1 04/12/2024 05:27 PM EST
[2025-02-09 14:51] VITALS: BP 124/70; PULSE 66
--- NOTE | 2025-02-09 14:51 | A.OFFVIS_ITS ---
Vital Signs 02/09/25 14:51 Height 5 ft 8 in BMI Reason not done Patient refused/unable BP 124/70 Blood Pressure Location Lt brachial Position Sitting Pulse 66 Intake Visit Reasons: 6 mth f/up dr bass pt Intake Note: 6 month follow-up with ekg hearts doing ok Jigger Artisan Required: No Allergies Penicillins (PENICILLINS) Allergy (Intermediate, Verified 01/27/25 09:27) rash- STATES BAD RXN CHILD Medication List - Last Reconciled 02/09/25 by Morgan Avila NP blood sugar diagnostic As directed carvedilol 12.5 mg PO DAILY cholecalciferol (vitamin D3) 50 mcg PO DAILY@1600 ferrous sulfate (iron) 325 mg PO DAILY furosemide 40 mg orally 2 tabls MWF & 1 Tab TTSS; 90 days glipizide ER 10 mg (2 x 5 mg) PO BID lancets (OneTouch Delica Plus Lancet) As directed lisinopril 5 mg PO DAILY metformin ER 500 mg PO TID [id number]-gqkdpdar-jyehhn 1 tab PO DAILY oxycodone-acetaminophen 5-300 mg 1 tab PO Q6H PRN pravastatin 80 mg PO BEDTIME tamsulosin 0.4 mg PO DAILY@1700 90 days warfarin 2 mg See Protocol PO DAILY@1800 warfarin 4 mg See Protocol PO DAILY HPI Comments Details: This is a 74-year-old male patient coming in for a follow-up visit. Patient with a history of persistent AFib on Coumadin, chronic right-sided heart failure, hypertension, diabetes, hyperlipidemia, and sleep apnea. Patient also had an abnormal myocardial perfusion study for which patient underwent a cardiac catheterization on 01/08/2024 showing minimal irregularities in the LAD otherwise no significant coronary artery disease. Today, patient is reporting feeling well overall without any cardiac symptoms of exertional chest pain, shortness of breath, palpitations, dizziness, orthopnea, PND, leg edema, presyncope or syncope. Patient states that he has an open blister underneath his right foot which has been having a hard time healing and therefore is following with the wound clinic. Patient is otherwise reporting compliance with all his medications. [facility] Medical History Chronic pain syndrome Diabetic foot ulcer MSSA bacteremia Foot ulcer, right Ambulates with cane Cochlear implant in place Type 2 diabetes mellitus with unspecified complications Essential hypertension Persistent atrial fibrillation Osteoarthritis of left knee Deafness in left ear JUDIE (obstructive sleep apnea) Osteoarthritis Anemia Venous stasis Hard of hearing Obesity GERD (gastroesophageal reflux disease) BPH (benign prostatic hyperplasia) Diabetes Peripheral edema Atrial fibrillation COPD (chronic obstructive pulmonary disease) Chronic a-fib Surgical History History of ear surgery History of umbilical hernia repair (02/18/24) Hx of total knee arthroplasty History of amputation of toe Hx of total shoulder replacement Hx of colonoscopy (~11/01/22) History of bilateral hip replacements Uses cochlear implant Family History Father No problems noted. 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 Cognitive needs: Yes (walker) Hearing needs: Yes (left ear) Vision needs: Yes (reading glasses) Review of Systems Const Denies chills, Denies fatigue, Denies fever(s), Denies frequent falls, Denies weakness, Denies weight gain and Denies weight loss ENT Denies dizziness Card Denies chest pain, Denies leg edema, Denies lightheadedness, Denies palpitations, Denies dyspnea, Denies dyspnea on exertion, Denies orthopnea and Denies other (loss of consciousness) Resp Denies cough, Denies dyspnea and Denies dyspnea on exertion GI Denies hematochezia and Denies change in stool character Musc Denies abnormal gait, Denies muscle weakness, Denies numbness, Denies radiating pain into limb and Denies tingling Neuro Denies abnormal gait, Denies dizziness, Denies frequent falls, Denies numbness, Denies tingling and Denies weakness Endo Denies fatigue and Denies palpitations Physical Exam Vital Signs: Last Vital Signs Pulse 66 02/09/25 14:51 BP 124/70 02/09/25 14:51 Const General: cooperative, healthy appearing, comfortable and no acute distress Orientation/consciousness: patient oriented x3 HEENT Head: Yes normal to inspection Neck Neck: Yes normal visual inspection, Yes trachea midline and Yes supple Chest Chest palpation & inspection: normal inspection of the chest Resp Effort & Inspection: normal respiratory effort Auscultation: clear to auscultation bilaterally, no crackles, no rales, no rhonchi and no wheezes Cardio Jugular venous distension: no JVD Palpation: normal PMI Rate: regular rate Rhythm: abnormal rhythm irregularly irregular Heart sounds: S1 normal heart sound present, S2 normal heart sound present, no click, no gallops, no murmurs and no rubs Peripheral pulses: Peripheral pulses 2+ throughout GI Inspection: Yes normal to inspection Palpation (GI): Soft to palpation Auscultation: normal bowel sounds Skin General skin exam: no rashes or lesions noted Neuro General: patient oriented x3 Extrem Other: Dressing to his right leg with orthopedic shoe. Trace edema to his left lower leg. Psych Appearance: grossly normal Mental Status: mental status grossly normal Speech and movement: Normal speech and movement present Office Procedures EKG Details: EKG today showed atrial fibrillation, rate 66 beats per [place], [place]. [id number], Complete Assessment & Plan Assessment & Plan (1) Atrial fibrillation: Comment: coumadin Code(s): I48.91 - Unspecified atrial fibrillation Category: Medical Qualifiers: Atrial fibrillation type: paroxysmal Qualified Code(s): I48.0 - Paroxysmal atrial fibrillation Plan: EKG today showed AFib with a rate of 66 beats per minute. Holter back in July showed baseline AFib with good rate control. Continue Coumadin for full anticoagulation. No reported signs of bleeding or falls. Continue with rate control approach with carvedilol. Recent labs with kidney function is stable. (2) Chronic right heart failure: Code(s): I50.812 - Chronic right heart failure Category: Medical Plan: Clinically stable and without any cardiac symptoms. Continue on Lasix therapy. Patient a longer on metolazone therapy for unclear reason. Advised on low-salt diet, daily weight monitoring, fluid restriction at 1.52 L daily, and it elevating legs. (3) Diabetes: Comment: IDDM Code(s): E11.9 - Type 2 diabetes mellitus without complications Category: Medical Qualifiers: Diabetes mellitus type: type 2 Diabetes mellitus snf insulin use: without counter weigher use Diabetes mellitus complication status: without complication Qualified Code(s): E11.9 - Type 2 diabetes mellitus without complications Plan: Continue with the aggressive diabetes management with an A1c goal less than 7%. Most recent at 6.9 %. Followed by PCP. (4) JUDIE (obstructive sleep apnea): Code(s): G47.33 - Obstructive sleep apnea (adult) (pediatric) Category: Medical Plan: History of sleep apnea not on CPAP therapy. Discussed in detail about the need to be on CPAP therapy. Patient understanding of risks however does not want to go on it. (5) Hyperlipidemia: Code(s): E78.5 - Hyperlipidemia, unspecified Plan: Most recent LDL at 81. Continue statin therapy. We will add Zetia for an LDL goal less than 70. We will repeat labs prior to next visit. Advised on heart healthy diet, exercise as tolerated, losing weight, med compliance, and aggressive management of vascular risk factors. Follow up in 6 months. In the interim, patient call the office with any concerns or change in symptoms. This note was generated using voice recognition software. While every effort has been made to ensure accuracy and proper gill box operator, there may be occasional errors that could affect the content or meaning of the described symptoms. Orders: Orders AMB EKG-In Office Today I48.0 - Paroxysmal atrial fibrillation Lipid Panel 5 Months I48.0 - Paroxysmal atrial fibrillation Medications: New ezetimibe 10 mg PO DAILY 90 tabs 1RF Coding Level of Care Code Est Pt Level 4 (14939) Complex visit Add On G2211 Diagnoses Paroxysmal atrial fibrillation I48.0 Atrial fibrillation type: paroxysmal Chronic right heart failure I50.812 Type 2 diabetes mellitus without complication, without long-term current use of insulin E11.9 Diabetes mellitus type: type 2 Diabetes mellitus snf insulin use: without snf use Diabetes mellitus complication status: without complication JUDIE (obstructive sleep apnea) G47.33 Hyperlipidemia E78.5 CPT Codes EKG - CPT: 25257-Xiytbvjxqgpdcvwmb, Complete ([id number]) Time Spent (min) 33 Comment Time spent in reviewing the chart, test results, assessment, counseling and documentation.
--- OUTSIDE RECORDS SUMMARY | 2025-02-09 17:27 | XMS_ITS | Clinical Summary ---
Author Organization [facility] Address [address] [place], [place] [id number] Phone Care Team Providers Care Parking Inspector Name Role Phone Darien Bruner MD [...] [place] [address] MED[place] [id number] [employer] MEDEX SUPPLEMENT JEANINESAMUEL [facility] [place] [place] [id number] MEDICARE PART A & B [facility] MEDEX [place] [id number] MEDICARE PART A & B [employer] MEDEX SUPPLEMENT [place] [id number] MEDICARE PART A & B [employer] MEDEX SUPPLEMENT V[place]io [place] [id number] MEDICARE PART A & B [employer] CROSS MEDEX SUPPLEMENT [address] MEDICARE PART A & B [employer] [place] [address] MEDICARE PART A & B Member Subscriber Plan / Payer (Ef fective 2021-) Name:Leonardo Pang Member ID:[id number] Relation to Subscriber:Self Name:Leonardo Pang Subscriber ID:[id number] Payer ID:[id number] Group ID:Not on file Type:Medicare Address: [address] [employer] MEDEX SUPPLEMENT MEDICARE PART A & B [employer] MEDEX SUPPLEMENT MEDICARE PART A & B [employer] CROSS MEDEX SUPPLEMENT Care Teams Parking Inspector Relationship Specialty Start Date End Date Darien Bruner MD [address] [place] [address] [place] [address] PCP - General Internal Medicine 05/31/21 Additional Source Comments The information contained in this document represents components of the legal health record. It is not the complete legal health record.[facility]
--- OUTSIDE RECORDS SUMMARY | 2025-02-09 17:28 | XMS_ITS | Patient Health Record ---
[facility] Organization [facility] Address [address] [facility] [place] [address] Care Team Providers Care Director Microbiology Name Role Phone Young Bunn Primary Care Provider Black, Ronel Unavailable [phone] Allergies Allergen (clinical drug ingredient) Drug/Non Drug [...] Polyneuropathy due to type 2 diabetes mellitus (011059822) Type 2 diabetes mellitus with diabetic polyneuropathy (E11.42) Active confirmed Problem Diabetic neuropathic arthropathy (798707625) Charcot foot due to diabetes mellitus (E11.610) Active confirmed Vital Signs Blood pressure diastolic 65 mm Hg 10/28/2024 Height 5ft8in in 10/28/2024 Blood pressure systolic 121 mm Hg 10/28/2024 Weight 245 lbs 10/28/2024 BMI 37.25 kg/m2 10/28/2024 Procedures Procedure Date Ordered Date Performed Result Body Sit e 76550-KXQUXLD NAIL, 6 OR MORE 04/19/2024 N/A 60452-VRRX SKIN LESIONS, OVER 4 04/19/2024 N/A 54070-LZIDFSU NAIL, 6 OR MORE 10/28/2024 N/A 20777-RGQR SKIN LESIONS, OVER 4 10/28/2024 N/A Encounters Encounter Location Date Provider Diagnosis [address] [address] 04/19/2024 Ronel Black Type 2 diabetes mellitus with diabetic polyneuropathy E11.42 ; Charcot foot due to diabetes mellitus E11.610 ; Tinea unguium B35.1 ; Charcot gait R26.0 ; Skin ulcer of toe of right foot, limited to breakdown of skin L97.511 and Subungual contusion of toe of left foot, initial encounter S90.222A [address] [address] 10/28/2024 Ronel Black Type 2 diabetes mellitus with diabetic polyneuropathy E11.42 ; Charcot foot due to diabetes mellitus E11.610 ; Tinea unguium B35.1 and Charcot gait R26.0 [facility] [address] [place] [address] 02/12/2024 Ronel Leon [facility] [address] [place] [address] 07/26/2024 Ronel Leon Assessments Encounter Date Diagnosis [...] Test Name Order Date Hemoglobin A1c 06/04/2018 65022-OOXWJUG NAIL, 6 OR MORE 10/28/2024 66883-PWAGIIE NAIL, 6 OR MORE 04/19/2024 41447-KBWIQFG NAIL, 6 OR MORE 12/05/2010 52422-VGDSAOP NAIL, 6 OR MORE 02/06/2011 54646-IIQVXDW NAIL, 6 OR MORE 04/22/2011 90259-AFCQWFU NAIL, 6 OR MORE 07/15/2011 51302-OFBWXDQ NAIL, 6 OR MORE 09/25/2011 34900-WQIBCIV NAIL, 6 OR MORE 10/28/2011 08968-JXIWZWC NAIL, 6 OR MORE 01/16/2012 00469-ZRPCVDP NAIL, 6 OR MORE 04/08/2012 21493-XWLMZOU NAIL, 6 OR MORE 06/24/2012 88588-GKZJTRK NAIL, 6 OR MORE 09/23/2012 46153-JTWVQKS NAIL, 6 OR MORE 12/28/2012 44961-UTOWLAX NAIL, 6 OR MORE 03/31/2013 49432-XFAUWAT NAIL, 6 OR MORE 06/14/2013 14057-WFNDQOD NAIL, 6 OR MORE 09/20/2013 92865-COACAZW NAIL, 6 OR MORE 12/22/2013 87290-CZIIMFM NAIL, 6 OR MORE 03/21/2014 27946-IRWXBSR NAIL, 6 OR MORE 06/20/2014 09341-BNYIIOM NAIL, 6 OR MORE 09/21/2014 26322-OBAZBIK NAIL, 6 OR MORE 11/30/2014 26929-QJBXAJC NAIL, 6 OR MORE 02/06/2015 40963-BDBHYPO NAIL, 6 OR MORE 05/01/2015 43483-JZNMJMS NAIL, 6 OR MORE 07/10/2015 51607-UYLYUMK NAIL, 6 OR MORE 10/02/2015 81669-ADIWGBC NAIL, 6 OR MORE 12/14/2015 78176-KDQTAYC NAIL, 6 OR MORE 02/22/2016 13680-VFBMHRP NAIL, 6 OR MORE 05/30/2016 71031-BAWLQLO NAIL, 6 OR MORE 08/29/2016 65264-MTMOXYC NAIL, 6 OR MORE 11/28/2016 11887-JPFAKOX NAIL, 6 OR MORE 02/27/2017 24752-KXJWUMT NAIL, 6 OR MORE 05/29/2017 09586-ZKXNOYL NAIL, 6 OR MORE 08/28/2017 85421-JJWLJBX NAIL, 6 OR MORE 03/12/2018 00749-DJKOSRO NAIL, 6 OR MORE 11/27/2017 72290-LTQGOQT NAIL, 6 OR MORE 06/04/2018 42662-UDDFADA NAIL, 6 OR MORE 07/12/2021 66554-HHAVKMY NAIL, 6 OR MORE 10/25/2021 09359-KPQJHOU NAIL, 6 OR MORE 02/07/2022 02292-BJOVQPQ NAIL, 6 OR MORE 06/13/2022 28973-AQPUXXH NAIL, 6 OR MORE 10/17/2022 80823-PCESONO NAIL, 6 OR MORE 02/17/2023 76695-QHAWXTN NAIL, 6 OR MORE 06/19/2023 72984-OTSRMRF NAIL, 6 OR MORE 10/23/2023 44376-Yoaf Destruction, -14 02/17/2023 63813-Lsbe Destruction, -06/19/2023 81916-Ewvg Destruction, -06/13/2022 40065-Vxth Destruction, -10/17/2022 00672-Rerrpsbk Plate 07/12/2021 85599-Lqkbpijo Plate 10/25/2021 83776-Szmhoadg Plate 05/29/2017 73275-Ysbtwwex Plate 08/29/2016 70330-Vxohhhva Plate 11/30/2014 29308-Jdanxzly Plate 09/21/2014 70383-Pmjetadd Plate 06/14/2013 21210-Fyftzzta Plate 06/20/2014 74248-Dqbfgptw Plate 03/21/2014 54700-Qrztuveh Plate 12/22/2013 16292-Zpjcskjj Plate 09/20/2013 09655- Debride <25 sq cm 09/20/2013 24613- Debride <25 sq cm 12/22/2013 91897- Debride <25 sq cm 06/14/2013 01911- Debride <25 sq cm 03/31/2013 49769- Debride <25 sq cm 03/21/2014 91253- Debride <25 sq cm 06/20/2014 16732- Debride <25 sq cm 09/21/2014 17043- Debride <25 sq cm 12/28/2012 19620- Debride <25 sq cm 09/23/2012 72598- Debride <25 sq cm 06/24/2012 16038- Debride <25 sq cm 04/08/2012 35321- Debride <25 sq cm 01/16/2012 05225- Debride <25 sq cm 10/28/2011 56885- Debride <25 sq cm 09/02/2011 55431- Debride <25 sq cm 09/25/2011 55375- Debride <25 sq cm 12/26/2010 53215- Debride <25 sq cm 02/22/2016 45219- Debride <25 sq cm 12/14/2015 96821- Debride <25 sq cm 10/02/2015 61267- Debride <25 sq cm 10/12/2015 95417- Debride <25 sq cm 10/06/2014 69023- Debride <25 sq cm 05/30/2016 95620- Debride <25 sq cm 02/27/2017 61371- Debride <25 sq cm 10/25/2021 42775- Debride <25 sq cm 02/07/2022 84377- Debride <25 sq cm 10/17/2022 95066-BDCJOKY SKIN/TISSUE 03/12/2018 70358-LVMBUKR SKIN/TISSUE 06/04/2018 32883-KHZWFYE SKIN/TISSUE 11/27/2011 01268-FPRXCSA SKIN/TISSUE 12/11/2011 44165-SSLZXKG SKIN/TISSUE 10/06/2014 25251 I&D ABSCESS- SIMPLE,SINGLE 015 91071 I&D ABSCESS- SIMPLE,SINGLE 011 06769 I&D ABSCESS- SIMPLE,SINGLE 015 46119-NTLN SKIN LESIONS, OVER 4 12/01/19 15 92702-YVXN SKIN LESIONS, OVER 4 02/07/20 15 74758-WLFU SKIN LESIONS, OVER 4 07/10/19 16 71316-DWXJ SKIN LESIONS, OVER 4 05/01/19 16 51053-GCHY SKIN LESIONS, OVER 4 10/02/19 16 58800-UYYY SKIN LESIONS, OVER 4 12/14/19 16 78199-JLWR SKIN LESIONS, OVER 4 02/22/20 16 07263-IMOY SKIN LESIONS, OVER 4 02/28/20 17 59853-CXWS SKIN LESIONS, OVER 4 05/30/19 18 17533-NQKL SKIN LESIONS, OVER 4 08/29/19 18 30404-CRXJ SKIN LESIONS, OVER 4 11/28/19 18 23876-BMBQ SKIN LESIONS, OVER 4 05/31/19 17 78709-JXUG SKIN LESIONS, OVER 4 11/29/19 17 10200-GVIM SKIN LESIONS, OVER 4 06/05/19 19 57862-VXBT SKIN LESIONS, OVER 4 03/12/19 19 69771-YRBA SKIN LESIONS, OVER 4 10/18/19 23 03239-PCCT SKIN LESIONS, OVER 4 06/14/19 23 01064-VXST SKIN LESIONS, OVER 4 02/18/20 23 15552-ZJDW SKIN LESIONS, OVER 4 06/19/19 24 83566-OBYW SKIN LESIONS, OVER 4 04/19/19 25 09970-VLYZ SKIN LESIONS, OVER 4 10/23/19 24 63544-HEBE SKIN LESIONS, OVER 4 12/06/19 11 02739-NSIK SKIN LESIONS, OVER 4 02/07/20 11 78524-ONAE SKIN LESIONS, OVER 4 07/15/19 12 77548-RKMV SKIN LESIONS, OVER 4 04/22/19 12 18557-VCFW SKIN LESIONS, OVER 4 09/25/19 12 59092-UOJC SKIN LESIONS, OVER 4 10/28/19 12 90071-GGWP SKIN LESIONS, OVER 4 09/24/19 13 80123-XKIG SKIN LESIONS, OVER 4 12/29/19 13 88591-NPBH SKIN LESIONS, OVER 4 01/16/20 12 26419-PKUE SKIN LESIONS, OVER 4 04/08/19 13 40818-REQO SKIN LESIONS, OVER 4 06/25/19 13 20253-MAVA SKIN LESIONS, OVER 4 09/22/19 15 52348-VEOW SKIN LESIONS, OVER 4 03/21/19 15 32807-URYG SKIN LESIONS, OVER 4 06/21/19 15 83442-NJPM SKIN LESIONS, OVER 4 03/31/19 14 42101-WQIR SKIN LESIONS, OVER 4 06/15/19 14 90571-BSQK SKIN LESIONS, OVER 4 12/23/19 14 37973-WFLK SKIN LESIONS, OVER 4 09/21/19 14 53822-MLPE SKIN LESIONS, OVER 4 10/29/19 25 34064-YOXJ SKIN LESIONS, 2 TO 4 12/23/19 14 37984-WXHF SKIN LESIONS, 2 TO 4 06/15/19 14 58222-QJFF SKIN LESIONS, 2 TO 4 03/31/19 14 61150-BXES SKIN LESIONS, 2 TO 4 06/21/19 15 60904-MBQL SKIN LESIONS, 2 TO 4 03/21/19 15 15290-IXYK SKIN LESIONS, 2 TO 4 12/29/19 13 65585-CRWZ SKIN LESIONS, 2 TO 4 09/24/19 13 65153-WTRH SKIN LESIONS, 2 TO 4 07/13/19 22 16910-EUNB SKIN LESIONS, 2 TO 4 02/08/20 22 39328-SSRY SKIN LESIONS, 2 TO 4 10/26/19 22 01614-DGSK SKIN LESIONS, 2 TO 4 08/30/19 17 83418-Wsqn. Subungual Hematoma 2 09707-Cajj. Subungual Hematoma 2 Next Appt Details Provider Name:Ronel Leon , 03/17/2025 08:30:00 AM, [address] [facility], [place], [address], Insurance Providers Payer Name Payer Address Payer Phone Subscriber Number Group Number Insured Name Patient Relationship to Insured Coverage Start Date Coverage End Date Medicare National Govt [employer] [facility] [address] [place] [phone] [id number] Leonardo Pang Self - patient is the insured [employer] [address] [place] [address] [phone] [id number] Leonardo Pang Self - patient is the [...] Reason Date(Month/Year) [facility] 08/28/23 [facility] 10/23/19 12
--- OUTSIDE RECORDS SUMMARY | 2025-02-09 17:28 | XMS_ITS | Clinical Summary ---
Author Organization [address] [facility] Address [address] [place] [address] Phone Care Team Providers Care Fire Loss Prevention Engineer Name Role Phone Darien Bruner MD Primary Care Provider Allergies Active Allergy Reactions Criticality Noted Date Comments Penicillins Rash 10/10/2023 Active Problems Problem Noted Date Diagnosed Date Acquired rocker bottom foot of right lower extre mity 11/23/2024 Exostosis of right foot 11/23/2024 Equinus contracture of right ankle 11/23/2024 Encounters Date Type Department Care Team Description 11/26/2024 Telephone Orthopedic Surgery [facility] [address] [address] [place] D[place] 11/23/2024 8:45 AM EDT Consult Orthopedic Surgery [facility] [address] [address] [place] DPHolli Charcot arthropathy of forefoot (Primary Dx); Acquired rocker bottom foot of right lower extremity; Exostosis of right foot; Equinus contracture of right ankle; Midfoot ulceration, right, with fat layer exposed ([facility] V24, [facility] V28) from Last 3 Months Medical History [...] alve insufficiency Chronic diastolic congestive heart failure ([facility] V24, [facility] V28) DX:Chronic diastoli c congestive heart failure ([facility]) Tachycardia, unspecified DX:Tach ycardia, unspecified MRSA (methicillin resistant Staphylococcus aureus) DX:MRSA (methicillin resista nt Staphylococcus aureus) Chronic atrial fibrillation ([facility] V24, [facility] V28) DX:Chronic atrial fibrillati on ([facility]) Iron deficiency anemia, unspecified DX:Iron deficiency anemia, [...] Description 04/01/2025 7:30 AM EST Hospital Encounter [facility] [address] [place] [address] [place] DPM [address] [address] 04/01/2025 7:30 AM EST - 04/01/2025 9:30 AM EST Surgery [facility] OR [address] [place] [address] [place] DPM 175 [facility] [address] [place] [address] OSTEOTOMY TARSAL [[id number] (CPT )] 04/14/2025 9:00 AM EST Office Visit Orthopedic Surgery - [place] 250 175 [facility] [address] [place] [phone] [place] [facility] [address] [place] [address] Scheduled Procedures Name Priority Associated Diagnoses Date/Ti [...] ult from Last 3 Months Insurance MEDICARE [facility] Care Teams Fire Loss Prevention Engineer Relationship Specialty Start Date End Date Darien Bruner MD [address] [place] [address] [place] PCP - General 09/04/23
--- OUTSIDE RECORDS SUMMARY | 2025-02-09 17:28 | XMS_ITS | Patient Health Record ---
Author Organization [facility] Address [address] [place] [address] Care Team Providers Care Nursery School Teacher Name Role Phone Zohreh (RETIRED) Darien LI Primary Care Provide Griffin Gustafson Jr Unavailable [phone] Allergies Allergen (clinical drug ingredient) Drug/Non Drug [...] Status Risk Notes Problem Colon cancer screening (138761933) Colon cancer screening (Z12.11) Active confirmed Problem Long-term current use of anticoagulant (028003973) alf (current) use of anticoagulants (Z79.01) Active confirmed Problem History of polyp of colon (situation) (663919654) Personal history of colonic polyps (Z86.010) Active confirmed Problem Pre-procedure evaluation check (175152961) Encounter for other preprocedural examination (Z01.818) Active confirmed Problem Long-term current use of insulin (405044489) alf (current) use of insulin (Z79.4) Active confirmed Plan Of Treatment Pending Test Test Name Order Date XR BARIUM ENEMA 11/18/2022 Future Test Test Name Order Date COLONOSCOPY 07/31/2011 COLONOSCOPY 02/07/2017 COLONOSCOPY 08/28/2022 Insurance Providers Payer Name Payer Address Payer Phone Subscriber Number Group Number Insured Name Patient Relationship to Insured Coverage Start Date Coverage End Date MEDICARE OF [place] [address] [place] [address] [id number] KAZ GRIFFIN Self - patient is the insured [employer] CLAIMS [address] [place] [address] [id number] KAZ GRIFFIN Self - patient is the [...]
--- OUTSIDE RECORDS SUMMARY | 2025-02-09 17:28 | XMS_ITS | Clinical Summary ---
Author Organization [facility] Address [address] [place] [address] Care Team Providers Care Instructor Painting Name Role Phone Darien Bruner MD Primary Care Provider [phone] Allergies Active Allergy Reactions Criticality Noted Date Comments Penicillins Unknown/Patient and Family Unable to Define Medium 02/10/2024 Medications SUPPLY DME MISCIndications :Pain in right ankle and joints of right foot RT ANKLE / Foot KLETSEL DEHE WINTUN Boot Dx: Diabetic Neuropathy, RT Plantar foot [...] topic Insurance MEDICARE PART A & [place] [id number] Care Teams Instructor Painting Relationship Specialty Start Date End Date Darien Bruner MD [address] [place] [address] [place] [address] PCP - General 01/19/24
--- OUTSIDE RECORDS SUMMARY | 2025-02-09 17:28 | XMS_ITS | Data Portability ---
Author Organization MD - [facility], Allergy Address [address] [place] [address] Care Team Providers Care Appliquer Zigzag Name Role Phone EMMA THOMAS Primary Care [...] Sensorine ural hearing loss of bilateral ears 773071721 Active 2013 SNHL Bilaterall y; CMS Risk: low risk Note: Date Diagnosed: 12/10/2013 9:18 AM (389.18) Not Available formerly [facility] 4 02:31:47 Bilateral sensory hearing loss 439802025 Active 2013 Hearing loss: Sensory hearing loss, bilateral; Location: left Note: Date Diagnosed: 12/16/2013 11:26 AM (389.11) Not Available formerly [facility] 4 02:31:45 Postopera tive follow-up visit Active 2013 Post op; Note: Date Diagnosed: 12/16/2013 11:26 AM (V67.00) Not Available formerly [facility] 4 02:31:42 Allergic rhinitis caused by pollen 67578378 Active 2013 Vasomotor rhinitis; Note: Date Diagnosed: 01/10/2014 2:23 PM (477.0) Not Available formerly [facility] 4 02:31:46 Gastroeso phageal reflux disease without esophagit is 027841914 Active 2014 Gastro-eso phageal reflux disease without esophagiti s; Note: Date Diagnosed: 01/16/2015 10:07 AM (K21.9) Not Available formerly [facility] 4 02:31:43 Deviated nasal septum 162924077 Active 2014 Septal Deviation; Note: Date Diagnosed: 08/05/2014 11:13 AM (470) ; Start Date : 08/05/2014 Deviated nasal septum; Note: Date Diagnosed: 01/16/2015 9:52 AM (J34.2) Not Available formerly [facility] 4 02:31:48 Hypertrop hy of nasal turbinate s 93363745 Active 2014 Nasal turbinate hypertroph y; Note: Date Diagnosed: 02/16/2014 12:31 PM (478.0) ; Start Date : 02/16/2014 Hypertrop hy of nasal turbinates ; Note: Date Diagnosed: 01/16/2015 9:52 AM (J34.3) Not Available formerly [facility] 4 02:31:37 Obstructi ve sleep apnea syndrome 08362579 Active 2015 Obstructiv e sleep apnea (adult) (pediatric ); Note: Date Diagnosed: 05/04/2015 4:55 PM (G47.33) Not Available formerly [facility] 4 02:31:48 Simple obesity 667105572 Active 2016 Other obesity due to excess calories; Note: Date Diagnosed: 10/09/2016 1:21 PM (E66.09) Not Available formerly [facility] 4 02:31:33 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 Medical Equipment None Reported. Allergies Allergen ID Allergen Name Allergen Category Reaction Reaction Severity Criticality Documentation Date Start Date Code Code System Note Provider Name and Address Organization Details Recorded Time 12569 Product containin g penicilli n (product) medicatio n other Not available Not available 07/22/2023 37716 8001 SNOMED React ion: Unkno wn; Not Available formerly [facility] 4 00:23:22 Medications Name Sig Start Date Stop Date Status Note LastModified by Organization Details LastModified Time furosemid e 40 mg tablet active Medicati on ID: 754572 B rand Name: furosemi de Send Method: E-Prescr ibed Sub s Allowed: subs OK Medic ationGen ericName : furosemi de Not Available Not Available Not Available metolazon e 2.5 mg tablet active Not Available Not Available Not Available metformin 500 mg tablet 05/11 completed Medicati on ID: 10299 Br and Name: metformi n Send Method: [...] ous solution 05/11 completed Medicati on ID: 516210 D uration Value: 28 Brand Name: Lantus U-100 Insulin Send Method: E-Prescr ibed Sub s Allowed: subs OK Speci al Instruct ion: INJECT 10 UNITS SUBCUTAN EOUSLY AT BEDTIME DISCAR D VIAL AFTER 28 DAYS Medic ationGen ericName : Lantus U-100 Insulin Not Available Not Available Not Available digoxin 250 mcg (0.25 mg) tablet 05/11 completed Medicati on ID: 61407 Br and Name: digoxin Send Method: E-Prescr ibed Sub s Allowed: subs OK Medic ationGen ericName : digoxin Not Available Not Available Not Available omeprazol e 40 mg capsule,d elayed release active Medicati on ID: 681163 B rand Name: omeprazo le Send Method: E-Prescr ibed Sub s Allowed: subs OK Medic ationGen ericName : omeprazo le Not Available Not Available Not Available tramadol 50 mg tablet 05/11 completed Medicati on ID: 70246 Br and Name: tramadol Send Method: E-Prescr ibed Sub s Allowed: subs OK Medic ationGen ericName : tramadol Not Available Not Available Not Available warfarin 4 mg tablet active Not Available Not Available Not Available Nexium 20 mg capsule,d elayed release 1 capsule by mouth once a day 05/11 completed Medicati on ID: 84145 Br and Name: Nexium S end Method: [...] 0.4 mg capsule active Medicati on ID: 492000 B rand Name: tamsulos in Send Method: E-Prescr ibed Sub s Allowed: subs OK Medic ationGen ericName : tamsulos in Not Available Not Available Not Available glipizide ER 2.5 mg tablet, extended release 24 hr 05/11 completed Medicati on ID: 53724 Br and Name: glipizid e Send Method: E-Prescr ibed Sub s Allowed: subs OK Medic ationGen ericName : glipizid e Not Available Not Available Not Available warfarin 2 mg tablet active Medicati on ID: 598109 B rand Name: warfarin Send Method: E-Prescr ibed Sub s Allowed: subs OK Medic ationGen ericName : warfarin Not Available Not Available Not Available fluticaso ne propionat e 50 mcg/actua tion nasal spray,andres pension 05/11 completed Medicati on ID: 512766 D uration Value: 30 Brand Name: fluticas one propiona te Send Method: E-Prescr ibed Sub s Allowed: subs OK Speci al Instruct ion: USE 1 SPRAY IN EACH NOSTRIL TWICE A DAY Medi cationGe nericNam e: fluticas one propiona te Not Available Not Available Not Available metformin ER 500 mg tablet,ex tended release 24 hr active Medicati on ID: 433030 B rand Name: metformi n Send Method: E-Prescr ibed Sub s Allowed: subs OK Medic ationGen ericName : metformi n Not Available Not Available Not Available ipratropi um bromide 21 mcg (0.03 %) nasal spray Inhale 2 spray into both nostrils three times a day as directed 05/11 completed Medicati on ID: 62709 Br and Name: Atrovent Send Method: E-Prescr [...] mcg tablet 05/11 completed Medicati on ID: 21138 Br and Name: Centrum Silver Ultra Men's Se nd Method: E-Prescr ibed Sub s Allowed: subs OK Medic ationGen ericName : Centrum Silver Ultra Men's Not Available Not Available Not Available Vitals Date Recorded Body height Body mass index (BMI) Body weight Provider Name and Address Organization Details Last Updated DateTime 08/14/2023 172.72 cm 38 kg/m2 801569.09 g Tevin Koch [place] - [facility] 08/14/2023 10:01:01 Social History None recorded. Functional Status None recorded. Mental Status None recorded. Family History Nothing Reported. Medical History No medical history recorded. Past Encounters Encounter ID Performer Location Encounter Start Date Encounter Closed Date Diagnosis/Indication Diagnosis SNOMED-CT Code Diagnosis ICD10 Code Diagnosis IMO Codes Diagnosis Note [id number] RAMYA ARNDT MD [facility] [address] [place] [address] 08/14/2023 09:50:50 08/14/2023 10:16:30 Benign neoplasm of parotid gland 49849359 D11.0 Health Concerns Section Related Observation LastModified by Organization Detai ls LastModified Time None Recorded Concern Status LastModified by Organization Details LastModified Time None Recorded Advance Directives Directive None Recorded Payers Insurance Date Sequence Insurance Name Policy Number Policy Casarez Covered Member ID Casarez Member ID Guarantor Name 07/28/2023 2 [place] Leonardo Pang [id number] Leonardo Pang 08/14/2023 1 [place] [facility] Leonardo Pang [id number] Leonardo Pang Notes Date Note Type Note Provider Name and Address Organization Details Recorded Time 08/14/2023 text/html ROS as noted in the HPI left parotid FNA 05/17/21 - warthin tumorct neck w contrast at [facility] 04/27/21left parotid 2.8cm mass. compare with prior [...] cochlear implant with Dr Demetrio ARNDT MD [address] [place] [address], [id number], [facility] - [facility] 08/14/2023 10:15:11
== END 2025-02-09 15:24 | disposition home or self-care (01) ==
LOC: HO.HCS 14:32
PROVIDERS: PCP Internal Medicine
DX: I48.0 Paroxysmal atrial fibrillation (principal); I50.812 Chronic right heart failure; E11.9 Type 2 diabetes mellitus without complications; G47.33 Obstructive sleep apnea (adult) (pediatric); E78.5 Hyperlipidemia, unspecified
CPT/HCPCS: 93010; 99214; G2211

== ENCOUNTER → 2025-02-09 14:31 | Outpatient (BNVA) | payer MEDICARE, SELFPAY | PROVIDERS: PCP Internal Medicine | DX: I48.0 Paroxysmal atrial fibrillation (principal); I50.812 Chronic right heart failure; I11.0 Hypertensive heart disease with heart failure; Z87.891 Personal history of nicotine dependence; E11.9 Type 2 diabetes mellitus without complications; Z79.84 Long term (current) use of oral hypoglycemic drugs; G47.33 Obstructive sleep apnea (adult) (pediatric); Z99.89 Dependence on other enabling machines and devices; Z79.01 Long term (current) use of anticoagulants; E78.5 Hyperlipidemia, unspecified | CPT/HCPCS: 93005; 99212 ==

== ENCOUNTER 2025-02-15 08:01 | Outpatient (AMB) | payer MEDICARE, SELFPAY ==
[2025-02-15 08:28] LABS: Prothrombin Time Whole Bld POC 29.6 sec (11.1-13.5); ~PT, ~INR - Anti Coag Clinic 2.5 (0.9-1.1)
--- NOTE | 2025-02-15 08:39 | MHC.OFFVISCO ---
Intake Intake Visit Reasons: Anticoagulation Allergies Penicillins (PENICILLINS) Allergy (Intermediate, Verified 02/15/25 08:15) rash- STATES BAD RXN CHILD Medication List - Last Reconciled 02/15/25 by Edith Sharif RN blood sugar diagnostic As directed carvedilol 12.5 mg PO DAILY cholecalciferol (vitamin D3) 50 mcg PO DAILY@1600 ezetimibe 10 mg PO DAILY ferrous sulfate (iron) 325 mg PO DAILY furosemide 40 mg orally 2 tabls MWF & 1 Tab TTSS; 90 days glipizide ER 10 mg (2 x 5 mg) PO BID lancets (OneTouch Delica Plus Lancet) As directed lisinopril 5 mg PO DAILY metformin ER 500 mg PO TID bmaofetthsvv-spuudzbv-eghykw 1 tab PO DAILY oxycodone-acetaminophen 5-300 mg 1 tab PO Q6H PRN 10 days pravastatin 80 mg PO BEDTIME tamsulosin 0.4 mg PO DAILY@1700 90 days warfarin 2 mg See Protocol PO DAILY@1800 warfarin 4 mg See Protocol PO DAILY Nursing Note INR: 2.5 in therapeutic range of 2-3 Pt having 6 front teeth extracted on 02/21/25 with a 5 day hold of warfarin. T/C to dentist for INR parameter. INR has to be <3.0 and dentist will accept today's result. Composed note sent to MD to check if lovenox needed. Not expected since low thrombotic risk with afib and no hx of stroke/tia. Medications and supplements reviewed No changes in health, diet, medications, or supplements, Denies any signs and symptoms of bleeding or bruising or clotting. Bleeding, bruising, clotting discussed Nutritional guidance given to avoid greens when restarting warfarin Dose: last dose of warfarin today then hold for 5 days. After procedure, if okayed by dentist, pt will statrt warfarin 8mg X 2 days then 6mg daily until next retest date. F/U INR: 02/25/25 Patient verbalizes understanding of instructions given Anti-Coag Initial Assessment Social Hx Patient Tobacco Use Status: Former Tobacco user Tobacco use type: Cigarette alcohol intake: former Alcohol intake frequency: does not drink Coding Level of Care Code Est Patient Level 1 Diagnoses Current use of anticoagulant therapy Z79.01 Assessment & Plan Assessment & Plan (1) Current use of anticoagulant therapy: Code(s): Z79.01 - care home (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
== END 2025-02-15 08:58 | disposition home or self-care (01) ==
PROVIDERS: PCP Internal Medicine; Visit Provider Internal Medicine Medical Oncology
DX: Z79.01 Long term (current) use of anticoagulants (principal)

== ENCOUNTER → 2025-02-15 08:01 | Outpatient (BNVA) | payer MEDICARE, SELFPAY | PROVIDERS: PCP Internal Medicine; Visit Provider Internal Medicine Medical Oncology | DX: I48.20 Chronic atrial fibrillation, unspecified (principal); Z51.81 Encounter for therapeutic drug level monitoring; Z79.01 Long term (current) use of anticoagulants | CPT/HCPCS: 85610; 99211 ==

== ENCOUNTER 2025-02-25 07:59 | Outpatient (AMB) | payer MEDICARE, SELFPAY ==
--- OUTSIDE RECORDS SUMMARY | 2024-02-23 03:00 | XMS_ITS ---
Author Organization [facility] Address [address] [place] [address] Care Team Providers Care Director Pharmacy Services Name Role Phone Young Bunn Primary Care Provider [phone] Ronel Leon [phone] Encounters Encounter Location Date Provider Diagnosis [address] [address] 02/23/2024 Ronel Leon Plan Of Treatment Next Appt Details Provider Name:Ronel Leon , 05/30/2025 03:15:00 PM, [address] [place] [address], [phone], Progress Notes * Leonardo GRIFFINDOB:1950 (74 yo M)Acc No.[id number]:02/23/2024 Progress Note Patient: Holli HERNANDEZLeonardo Provider: Rashard Leon DPM :1950 A ge:73 Y S ex:Male Date:02/23/2024 Address:[address] [place] [address] [place], [id number] Pcp:Young Bunn Subjective: * Chief Complaints: * [...] 1 04/25/2023 Generated for René temple/Melissa/Patel on: 04/28/2024 08:02 AM EST
--- OUTSIDE RECORDS SUMMARY | 2024-07-29 04:00 | XMS_ITS ---
Author Organization [facility] Address [address] [place] [address] Care Team Providers Care Manager Retail Sales Name Role Phone Young Bunn Primary Care Provider Ronel Leon [phone] Encounters Encounter Location Date Provider Diagnosis [address] [address] 07/29/2024 Ronel Leon Plan Of Treatment Next Appt Details Provider Name:Ronel Leon , 05/30/2025 03:15:00 PM, [address] [place] [address], [address], Progress Notes * Leonardo GRIFFINDOB:1950 (74 yo M)Acc No.[id number]:07/29/2024 Progress Note Patient: Holli HERNANDEZLeonardo Provider: Rashard Leon DPM :1950 A ge:74 Y S ex:Male Date:07/29/2024 Address:[address] [place] [address] [place], [id number] Pcp:Young Bunn Subjective: * Chief Complaints: * * Medical History: Objective: * Vitals: Assessment: Plan: * Treatment: * Images: * The named appointment provid er may or may not be the originator of this progress note, and it is not deemed complete until electronically signed by the appointment provider. Sign off status: Pending * Provider: Rashard Leon DPM Date: 0 07/29/2024 Generated for René temple/Melissa/Patel on: 1 04/28/2024 08:01 AM EST
--- OUTSIDE RECORDS SUMMARY | 2024-10-25 06:15 | XMS_ITS ---
Author Organization [facility] Address [address] [place] [address] Care Team Providers Care Speech Pathology Teacher Name Role Phone Young Bunn Primary Care Provider [phone] Ronel Leon [phone] Encounters Encounter Location Date Provider Diagnosis [address] [address] 10/25/2024 Ronel Leon Plan Of Treatment Next Appt Details Provider Name:Ronel Leon , 05/30/2025 03:15:00 PM, [address] [place] [address], [phone], Progress Notes * Leonardo GRIFFINDOB:1950 (74 yo M)Acc No.[id number]:10/25/2024 Progress Note Patient: Holli HERNANDEZLeonardo Provider: Rashard Leon DPM :1950 A ge:74 Y S ex:Male Date:10/25/2024 Address:[address] [place] [address] [place], [id number] Pcp:Young Bunn Subjective: * Chief Complaints: * [...] 10/25/2024 Generated for René temple/Melissa/Patel on: 1 04/28/2024 08:01 AM EST
--- OUTSIDE RECORDS SUMMARY | 2025-02-25 08:01 | XMS_ITS | Clinical Summary ---
Author Organization [facility] Address [address] [place], [place] [address] Phone Care Team Providers Care Automotive Title Clerk Name Role Phone Darien Bruner MD [...] [place] [address] MED[place] [id number] [place] [employer] MEDEX SUPPLEMENT JEANINESAMUEL BEJARANOCARL [facility] [place] [address] MEDICARE PART A & B [facility] MEDEX [place] [address] MEDICARE PART A & B [employer] MEDEX SUPPLEMENT TOMEKA C[place] [address] MEDICARE PART A & B [employer] MEDEX SUPPLEMENT Vinicio COOK [place] [address] MEDICARE PART A & B [place] [employer] MEDEX SUPPLEMENT [address] MEDICARE PART A & B [place] [address] MEDICARE PART A & B Member Subscriber Plan / Payer (Ef fective 2021-) Name:Leonardo Pang Member ID:[id number] Relation to Subscriber:Self Name:Leonardo Pang Subscriber ID:[id number] Payer ID:[id number] Group ID:Not on file Type:Medicare Address: [place] [address] [employer] MEDEX SUPPLEMENT MEDICARE PART A & B [employer] MEDEX SUPPLEMENT MEDICARE PART A & B [place]EE [employer]OSS MEDEX SUPPLEMENT Care Teams Automotive Title Clerk Relationship Specialty Start Date End Date Darien Bruner MD [address] [place] [address] [place] [address] PCP - General Internal Medicine 05/31/21 Additional Source Comments The information contained in this document represents components of the legal health record. It is not the complete legal health record.[facility]
--- OUTSIDE RECORDS SUMMARY | 2025-02-25 08:02 | XMS_ITS | Patient Health Record ---
Author Organization [facility] Address [address] [facility] [place] [address] Care Team Providers Care Manager Risk Name Role Phone Young Bunn Primary Care Provider [phone] Black, Ronel Unavailable [phone] Allergies Allergen (clinical drug ingredient) Drug/Non Drug [...] Polyneuropathy due to type 2 diabetes mellitus (394716553) Type 2 diabetes mellitus with diabetic polyneuropathy (E11.42) Active confirmed Problem Diabetic neuropathic arthropathy (967078561) Charcot foot due to diabetes mellitus (E11.610) Active confirmed Vital Signs Blood pressure diastolic 65 mm Hg 10/28/2024 Height 5ft8in in 10/28/2024 Blood pressure systolic 121 mm Hg 10/28/2024 Weight 245 lbs 10/28/2024 BMI 37.25 kg/m2 10/28/2024 Procedures Procedure Date Ordered Date Performed Result Body Sit e 89129-RRLWHEY NAIL, 6 OR MORE 04/19/2024 N/A 39994-LARZ SKIN LESIONS, OVER 4 04/19/2024 N/A 28162-RBDTLXC NAIL, 6 OR MORE 10/28/2024 N/A 32428-HBNG SKIN LESIONS, OVER 4 10/28/2024 N/A Encounters Encounter Location Date Provider Diagnosis [address] [address] 04/19/2024 Ronel Black Type 2 diabetes mellitus with diabetic polyneuropathy E11.42 ; Charcot foot due to diabetes mellitus E11.610 ; Tinea unguium B35.1 ; Charcot gait R26.0 ; Skin ulcer of toe of right foot, limited to breakdown of skin L97.511 and Subungual contusion of toe of left foot, initial encounter S90.222A [address] [address] 10/28/2024 Ronel Black Type 2 diabetes mellitus with diabetic polyneuropathy E11.42 ; Charcot foot due to diabetes mellitus E11.610 ; Tinea unguium B35.1 and Charcot gait R26.0 [facility] [address] [place] [address] 07/26/2024 Ronel Leon [facility] [address] [place] [address] 02/16/2025 Ronel Leon Assessments Encounter Date Diagnosis (ICD [...] Test Name Order Date Hemoglobin A1c 06/04/2018 78869-ERXGDUH NAIL, 6 OR MORE 10/28/2024 53844-VCWNDCI NAIL, 6 OR MORE 04/19/2024 90683-QKCVCZC NAIL, 6 OR MORE 12/05/2010 63551-SBRYSHR NAIL, 6 OR MORE 02/06/2011 41185-JRXPAWD NAIL, 6 OR MORE 04/22/2011 91779-QVOGNFE NAIL, 6 OR MORE 07/15/2011 47266-LIDXMJD NAIL, 6 OR MORE 09/25/2011 21809-ADVFANU NAIL, 6 OR MORE 10/28/2011 46371-WYCEDMW NAIL, 6 OR MORE 01/16/2012 87096-OJBDWHU NAIL, 6 OR MORE 04/08/2012 35428-VOADRTB NAIL, 6 OR MORE 06/24/2012 12318-LUJQOIF NAIL, 6 OR MORE 09/23/2012 94692-DBTKSSR NAIL, 6 OR MORE 12/28/2012 29697-CZRCVWB NAIL, 6 OR MORE 03/31/2013 49047-RSXSSVE NAIL, 6 OR MORE 06/14/2013 06288-BMYWJMO NAIL, 6 OR MORE 09/20/2013 50564-NPXKUAV NAIL, 6 OR MORE 12/22/2013 80861-BLOHDSG NAIL, 6 OR MORE 03/21/2014 87021-LMOSGIU NAIL, 6 OR MORE 06/20/2014 34246-DSPHZXM NAIL, 6 OR MORE 09/21/2014 77313-QCUXQYQ NAIL, 6 OR MORE 11/30/2014 93528-GGIGBXZ NAIL, 6 OR MORE 02/06/2015 76832-ELAOMTF NAIL, 6 OR MORE 05/01/2015 48067-SJVJVDV NAIL, 6 OR MORE 07/10/2015 43666-KFLPRFD NAIL, 6 OR MORE 10/02/2015 00334-YMUPJYJ NAIL, 6 OR MORE 12/14/2015 06472-LJPIZMS NAIL, 6 OR MORE 02/22/2016 77017-QFBYKRP NAIL, 6 OR MORE 05/30/2016 42757-WXMWGUU NAIL, 6 OR MORE 08/29/2016 38081-NMVFRDA NAIL, 6 OR MORE 11/28/2016 88314-ZZUGDXI NAIL, 6 OR MORE 02/27/2017 79405-DNKRJRA NAIL, 6 OR MORE 05/29/2017 10565-MMJZFOT NAIL, 6 OR MORE 08/28/2017 31173-WBYGQMS NAIL, 6 OR MORE 03/12/2018 16036-YAWZWFH NAIL, 6 OR MORE 11/27/2017 45152-ZMNUFXX NAIL, 6 OR MORE 06/04/2018 51179-UMBLLGQ NAIL, 6 OR MORE 07/12/2021 59994-ZHVOZJC NAIL, 6 OR MORE 10/25/2021 48718-WDYILNL NAIL, 6 OR MORE 02/07/2022 45789-UBTPUPR NAIL, 6 OR MORE 06/13/2022 72685-KDWXJJD NAIL, 6 OR MORE 10/17/2022 03407-DQXWZFK NAIL, 6 OR MORE 02/17/2023 48777-SVBUGLN NAIL, 6 OR MORE 06/19/2023 36275-WRKAXFG NAIL, 6 OR MORE 10/23/2023 02189-Yvxd Destruction, -14 02/17/2023 54453-Yzaz Destruction, -06/19/2023 72454-Nwtj Destruction, -06/13/2022 13782-Migt Destruction, -10/17/2022 00780-Qlnppexk Plate 07/12/2021 56646-Vjxoofoa Plate 10/25/2021 65028-Qjkiwxvr Plate 05/29/2017 58420-Jkgsvlph Plate 08/29/2016 51036-Vzfqqzuj Plate 11/30/2014 43191-Qysisjrj Plate 09/21/2014 24291-Fcfnwhvf Plate 06/14/2013 80024-Oyhfbfes Plate 06/20/2014 14754-Pnbjkhkr Plate 03/21/2014 54655-Cpklypma Plate 12/22/2013 55847-Vhbldvxi Plate 09/20/2013 71284- Debride <25 sq cm 09/20/2013 28549- Debride <25 sq cm 12/22/2013 02129- Debride <25 sq cm 06/14/2013 31629- Debride <25 sq cm 03/31/2013 45149- Debride <25 sq cm 03/21/2014 23790- Debride <25 sq cm 06/20/2014 41456- Debride <25 sq cm 09/21/2014 18368- Debride <25 sq cm 12/28/2012 45235- Debride <25 sq cm 09/23/2012 39241- Debride <25 sq cm 06/24/2012 83295- Debride <25 sq cm 04/08/2012 05546- Debride <25 sq cm 01/16/2012 89000- Debride <25 sq cm 10/28/2011 65716- Debride <25 sq cm 09/02/2011 65281- Debride <25 sq cm 09/25/2011 66203- Debride <25 sq cm 12/26/2010 49964- Debride <25 sq cm 02/22/2016 11484- Debride <25 sq cm 12/14/2015 01253- Debride <25 sq cm 10/02/2015 11389- Debride <25 sq cm 10/12/2015 26801- Debride <25 sq cm 10/06/2014 61042- Debride <25 sq cm 05/30/2016 69431- Debride <25 sq cm 02/27/2017 09867- Debride <25 sq cm 10/25/2021 94306- Debride <25 sq cm 02/07/2022 94180- Debride <25 sq cm 10/17/2022 19443-UISFIAA SKIN/TISSUE 03/12/2018 48090-ZPJPHNE SKIN/TISSUE 06/04/2018 08983-XLIIPIU SKIN/TISSUE 11/27/2011 42285-IAUICWR SKIN/TISSUE 12/11/2011 81881-TLUMFCN SKIN/TISSUE 10/06/2014 62864 I&D ABSCESS- SIMPLE,SINGLE 015 55336 I&D ABSCESS- SIMPLE,SINGLE 011 02109 I&D ABSCESS- SIMPLE,SINGLE 015 15157-TRCC SKIN LESIONS, OVER 4 12/01/19 15 95080-AAPF SKIN LESIONS, OVER 4 02/07/20 15 46710-BTUV SKIN LESIONS, OVER 4 07/10/19 16 92197-VZBC SKIN LESIONS, OVER 4 05/01/19 16 08020-HFSL SKIN LESIONS, OVER 4 10/02/19 16 39185-GFIM SKIN LESIONS, OVER 4 12/14/19 16 12105-BKYV SKIN LESIONS, OVER 4 02/22/20 16 89290-IRQZ SKIN LESIONS, OVER 4 02/28/20 17 99460-LLSE SKIN LESIONS, OVER 4 05/30/19 18 61676-KEPH SKIN LESIONS, OVER 4 08/29/19 18 02675-HTXT SKIN LESIONS, OVER 4 11/28/19 18 77193-BFTP SKIN LESIONS, OVER 4 05/31/19 17 11247-BCHV SKIN LESIONS, OVER 4 11/29/19 17 74719-HFXY SKIN LESIONS, OVER 4 06/05/19 19 83695-WMSQ SKIN LESIONS, OVER 4 03/12/19 19 21845-VBXC SKIN LESIONS, OVER 4 10/18/19 23 73409-BVOB SKIN LESIONS, OVER 4 06/14/19 23 88912-DOTI SKIN LESIONS, OVER 4 02/18/20 23 12998-ZRMM SKIN LESIONS, OVER 4 06/19/19 24 29557-JGZR SKIN LESIONS, OVER 4 04/19/19 25 39787-QQNU SKIN LESIONS, OVER 4 10/23/19 24 25233-JWFV SKIN LESIONS, OVER 4 12/06/19 11 07664-ZRJL SKIN LESIONS, OVER 4 02/07/20 11 42232-HSSU SKIN LESIONS, OVER 4 07/15/19 12 98505-IRAA SKIN LESIONS, OVER 4 04/22/19 12 45891-IRYO SKIN LESIONS, OVER 4 09/25/19 12 14888-WEMC SKIN LESIONS, OVER 4 10/28/19 12 83669-IRLT SKIN LESIONS, OVER 4 09/24/19 13 60924-EBGT SKIN LESIONS, OVER 4 12/29/19 13 48136-CQHZ SKIN LESIONS, OVER 4 01/16/20 12 65288-CPAH SKIN LESIONS, OVER 4 04/08/19 13 60791-JHTA SKIN LESIONS, OVER 4 06/25/19 13 86152-DXSU SKIN LESIONS, OVER 4 09/22/19 15 35687-ZXMI SKIN LESIONS, OVER 4 03/21/19 15 89613-LKID SKIN LESIONS, OVER 4 06/21/19 15 51516-TEYB SKIN LESIONS, OVER 4 03/31/19 14 94396-CTAH SKIN LESIONS, OVER 4 06/15/19 14 52358-UFBZ SKIN LESIONS, OVER 4 12/23/19 14 07950-IEZG SKIN LESIONS, OVER 4 09/21/19 14 89391-DAMI SKIN LESIONS, OVER 4 10/29/19 25 53206-IIZB SKIN LESIONS, 2 TO 4 12/23/19 14 28899-ULWO SKIN LESIONS, 2 TO 4 06/15/19 14 20263-WDMR SKIN LESIONS, 2 TO 4 03/31/19 14 89449-KHJJ SKIN LESIONS, 2 TO 4 06/21/19 15 43491-RFJP SKIN LESIONS, 2 TO 4 03/21/19 15 58956-UXKB SKIN LESIONS, 2 TO 4 12/29/19 13 18980-TGOR SKIN LESIONS, 2 TO 4 09/24/19 13 52520-QQMS SKIN LESIONS, 2 TO 4 07/13/19 22 66141-AMGI SKIN LESIONS, 2 TO 4 02/08/20 22 07056-AVIM SKIN LESIONS, 2 TO 4 10/26/19 22 31909-ICTE SKIN LESIONS, 2 TO 4 08/30/19 17 88223-Kjof. Subungual Hematoma 2 71062-Zvfn. Subungual Hematoma 2 Next Appt Details Provider Name:Ronel Leon , 05/30/2025 03:15:00 PM, [address] [facility], [place], [address], Insurance Providers Payer Name Payer Address Payer Phone Subscriber Number Group Number Insured Name Patient Relationship to Insured Coverage Start Date Coverage End Date Medicare National Govt [employer] [facility] [address] [place] [address] [id number] [phone] [id number] Leonardo Pang Self - patient is the insured [employer] [address] [place] [address] [id number] Leonardo Pang Self - patient is the insured Medical (General) History Medical History History ICD Code osteoporosis hypertension diabetes mellitus back, hip, knee pain Arthritis Cholesterol Unsteady gait R26.81 Charcot gait R26.0 Hallux valgus (acquired), right foot M20 .11 Hallux valgus (acquired), left foot M20. 12 Surgical History Surgery Date(Month/Year) hip surgery 119/1996 cocculer ear implant 12/2013 colonoscopy 05/2017 left knee replacement 12/27 Hospitalization History Reason Date(Month/Year) [facility] 08/28/23 [facility] for a-fib 10/23/19 12
--- OUTSIDE RECORDS SUMMARY | 2025-02-25 08:02 | XMS_ITS | Data Portability ---
Author Organization [facility] Address [address] [place] [address] Care Team Providers Care Research & Insights Executive Name Role Phone EMMA THOMAS Primary [...] Sensorine ural hearing loss of bilateral ears 447419809 Active 2013 SNHL Bilaterall y; CMS Risk: low risk Note: Date Diagnosed: 12/10/2013 9:18 AM (389.18) Not Available [facility] 4 02:31:47 Bilateral sensory hearing loss 796270193 Active 2013 Hearing loss: Sensory hearing loss, bilateral; Location: left Note: Date Diagnosed: 12/16/2013 11:26 AM (389.11) Not Available [facility] 4 02:31:45 Postopera tive follow-up visit Active 2013 Post op; Note: Date Diagnosed: 12/16/2013 11:26 AM (V67.00) Not Available [facility] 4 02:31:42 Allergic rhinitis caused by pollen 17246758 Active 2013 Vasomotor rhinitis; Note: Date Diagnosed: 01/10/2014 2:23 PM (477.0) Not Available [facility] 4 02:31:46 Gastroeso phageal reflux disease without esophagit is 859571197 Active 2014 Gastro-eso phageal reflux disease without esophagiti s; Note: Date Diagnosed: 01/16/2015 10:07 AM (K21.9) Not Available [facility] 4 02:31:43 Deviated nasal septum 442645642 Active 2014 Septal Deviation; Note: Date Diagnosed: 08/05/2014 11:13 AM (470) ; Start Date : 08/05/2014 Deviated nasal septum; Note: Date Diagnosed: 01/16/2015 9:52 AM (J34.2) Not Available [facility] 4 02:31:48 Hypertrop hy of nasal turbinate s 73285106 Active 2014 Nasal turbinate hypertroph y; Note: Date Diagnosed: 02/16/2014 12:31 PM (478.0) ; Start Date : 02/16/2014 Hypertrop hy of nasal turbinates ; Note: Date Diagnosed: 01/16/2015 9:52 AM (J34.3) Not Available [facility] 4 02:31:37 Obstructi ve sleep apnea syndrome 30694855 Active 2015 Obstructiv e sleep apnea (adult) (pediatric ); Note: Date Diagnosed: 05/04/2015 4:55 PM (G47.33) Not Available [facility] 4 02:31:48 Simple obesity 358504771 Active 2016 Other obesity due to excess calories; Note: Date Diagnosed: 10/09/2016 1:21 PM (E66.09) Not Available [facility] 4 02:31:33 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 4 10:08:47 Problem Notes None recorded. Medical Equipment None Reported. Allergies Allergen ID Allergen Name Allergen Category Reaction Reaction Severity Criticality Documentation Date Start Date Code Code System Note Provider Name and Address Organization Details Recorded Time 25101 Product containin g penicilli n (product) medicatio n other Not available Not available 07/22/2023 80392 8001 SNOMED React ion: Unkno wn; Not Available [facility] 4 00:23:22 Medications Name Sig Start Date Stop Date Status Note LastModified by Organization Details LastModified Time furosemid e 40 mg tablet active Medicati on ID: 692664 B rand Name: furosemi de Send Method: E-Prescr ibed Sub s Allowed: subs OK Medic ationGen ericName : furosemi de Not Available Not Available Not Available metolazon e 2.5 mg tablet active Not Available Not Available Not Available metformin 500 mg tablet 05/11 completed Medicati on ID: 14186 Br and Name: metformi n Send Method: [...] ous solution 05/11 completed Medicati on ID: [id number] D uration Value: 28 Brand Name: Lantus U-100 Insulin Send Method: E-Prescr ibed Sub s Allowed: subs OK Speci al Instruct ion: INJECT 10 UNITS SUBCUTAN EOUSLY AT BEDTIME DISCAR D VIAL AFTER 28 DAYS Medic ationGen ericName : Lantus U-100 Insulin Not Available Not Available Not Available digoxin 250 mcg (0.25 mg) tablet 05/11 completed Medicati on ID: 97379 Br and Name: digoxin Send Method: E-Prescr ibed Sub s Allowed: subs OK Medic ationGen ericName : digoxin Not Available Not Available Not Available omeprazol e 40 mg capsule,d elayed release active Medicati on ID: 601902 B rand Name: omeprazo le Send Method: E-Prescr ibed Sub s Allowed: subs OK Medic ationGen ericName : omeprazo le Not Available Not Available Not Available tramadol 50 mg tablet 05/11 completed Medicati on ID: 44255 Br and Name: tramadol Send Method: E-Prescr ibed Sub s Allowed: subs OK Medic ationGen ericName : tramadol Not Available Not Available Not Available warfarin 4 mg tablet active Not Available Not Available Not Available Nexium 20 mg capsule,d elayed release 1 capsule by mouth once a day 05/11 completed Medicati on ID: 28602 Br and Name: Nexium S end Method: [...] 0.4 mg capsule active Medicati on ID: 435310 B rand Name: tamsulos in Send Method: E-Prescr ibed Sub s Allowed: subs OK Medic ationGen ericName : tamsulos in Not Available Not Available Not Available glipizide ER 2.5 mg tablet, extended release 24 hr 05/11 completed Medicati on ID: 31676 Br and Name: glipizid e Send Method: E-Prescr ibed Sub s Allowed: subs OK Medic ationGen ericName : glipizid e Not Available Not Available Not Available warfarin 2 mg tablet active Medicati on ID: 546191 B rand Name: warfarin Send Method: E-Prescr ibed Sub s Allowed: subs OK Medic ationGen ericName : warfarin Not Available Not Available Not Available fluticaso ne propionat e 50 mcg/actua tion nasal spray,andres pension 05/11 completed Medicati on ID: 513383 D uration Value: 30 Brand Name: fluticas one propiona te Send Method: E-Prescr ibed Sub s Allowed: subs OK Speci al Instruct ion: USE 1 SPRAY IN EACH NOSTRIL TWICE A DAY Medi cationGe nericNam e: fluticas one propiona te Not Available Not Available Not Available metformin ER 500 mg tablet,ex tended release 24 hr active Medicati on ID: 499509 B rand Name: metformi n Send Method: E-Prescr ibed Sub s Allowed: subs OK Medic ationGen ericName : metformi n Not Available Not Available Not Available ipratropi um bromide 21 mcg (0.03 %) nasal spray Inhale 2 spray into both nostrils three times a day as directed 05/11 completed Medicati on ID: 73063 Br and Name: Atrovent Send Method: E-Prescr [...] mcg tablet 05/11 completed Medicati on ID: 93435 Br and Name: Centrum Silver Ultra Men's Se nd Method: E-Prescr ibed Sub s Allowed: subs OK Medic ationGen ericName : Centrum Silver Ultra Men's Not Available Not Available Not Available Vitals Date Recorded Body height Body mass index (BMI) Body weight Provider Name and Address Organization Details Last Updated DateTime 08/14/2023 172.72 cm 38 kg/m2 848815.09 g Tevin Koch [place] - [facility] [...] Note 2589 RAMYA ARNDT MD [facility] [address] [place] [address] 08/14/2023 09:50:50 08/14/2023 10:16:30 Benign neoplasm of parotid gland 74222395 D11.0 Health Concerns Section Related Observation LastModified by Organization Detai ls LastModified Time None Recorded Concern Status LastModified by Organization Details LastModified Time None Recorded Advance Directives Directive None Recorded Payers Insurance Date Sequence Insurance Name Policy Number Policy Casarez Covered Member ID Casarez Member ID Guarantor Name 07/28/2023 2 [place] Leonardo Pang [id number] Leonardo Pang 08/14/2023 1 MEDICARE B-[place]: [facility] Leonardo Pang [id number] Leonardo Pang Notes Date Note Type Note Provider Name and Address Organization Details Recorded Time 08/14/2023 text/html ROS as noted in the HPI left parotid FNA 05/17/21 - warthin tumorct neck w contrast at [place] 04/27/21left parotid 2.8cm mass. compare with prior [...] cochlear implant with Dr Demetrio ARNDT MD [address] [place] [address], [phone], [facility] - [facility] 08/14/2023 10:15:11
--- OUTSIDE RECORDS SUMMARY | 2025-02-25 08:02 | XMS_ITS | Patient Health Record ---
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 (Z79.01) Active confirmed Problem History of polyp of colon (situation) (409376124) Personal history of colonic polyps (Z86.010) Active confirmed Problem Pre-procedure evaluation check (039091350) Encounter for other preprocedural examination (Z01.818) Active confirmed Problem Long-term current use of insulin (056648629) 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) use of insulin (Z79.4) Active confirmed Plan Of Treatment Pending Test Test Name Order Date XR BARIUM ENEMA 11/18/2022 Future Test Test Name Order Date COLONOSCOPY 07/31/2011 COLONOSCOPY 02/07/2017 COLONOSCOPY 08/28/2022 Insurance Providers Payer Name Payer Address Payer Phone Subscriber Number Group Number Insured Name Patient Relationship to Insured Coverage Start Date Coverage End Date MEDICARE OF [place] [address] [place] [address] [id number] KAZ GRIFFIN Self - patient is the insured [employer] CLAIMS [address] [place] [id number] KAZ GRIFFIN Self - patient is the [...]
--- OUTSIDE RECORDS SUMMARY | 2025-02-25 08:02 | XMS_ITS | Clinical Summary ---
Author Organization [facility] Address [address] [place] [address] Care Team Providers Care Balance Clerk Name Role Phone Darien Bruner MD Primary Care Provider [phone] Allergies Active Allergy Reactions Criticality Noted Date Comments Penicillins Unknown/Patient and Family Unable to Define Medium 02/10/2024 Medications SUPPLY DME MISCIndications :Pain in right ankle and joints of right foot RT ANKLE / Foot CHENEGA Boot Dx: Diabetic Neuropathy, RT Plantar foot [...] topic Insurance MEDICARE PART A & [place] [id number] Care Teams Balance Clerk Relationship Specialty Start Date End Date Darien Bruner MD [address] [place] [address] [place] [address] PCP - General 01/19/24
--- OUTSIDE RECORDS SUMMARY | 2025-02-25 08:02 | XMS_ITS | Clinical Summary ---
Author Organization 175 [facility] Address [address] [place] [address] Phone Care Team Providers Care Tennis Racket Repairer Name Role Phone Darien Bruner MD Primary Care Provider [phone] Allergies Active Allergy Reactions Criticality Noted Date Comments Penicillins Rash 10/10/2023 Active Problems Problem Noted Date Diagnosed Date Acquired rocker bottom foot of right lower extre mity 11/23/2024 Exostosis of right foot 11/23/2024 Equinus contracture of right ankle 11/23/2024 Encounters Date Type Department Care Team Description 11/26/2024 Telephone Orthopedic Surgery [facility] 250 [address] [facility] [address] [place] [phone] [place] DPM from Last 3 Months Medical History Medical History Date Comments 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 V24, [facility] V28) DX:Type 2 diabetes mellitus with polyneuropathy ([facility]) Heart failure, unspecified ( [facility] V24, [facility] V28) DX:Heart failure, unspecifie d ([facility]) 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: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 Lower back pain DX:Lower back pa in Pain in foot DX:Pain in foot Non-rheumatic tricuspid valv e insufficiency DX:Non-rheumatic tricuspid v alve insufficiency Chronic diastolic congestive heart failure ([facility] V24, [facility] V28) DX:Chronic diastoli c congestive heart failure ([facility]) Tachycardia, unspecified DX:Tach ycardia, unspecified MRSA (methicillin resistant Staphylococcus aureus) DX:MRSA (methicillin resista nt Staphylococcus aureus) Chronic atrial fibrillation ([facility] V24, [facility] V28) DX:Chronic atrial fibrillati on ([facility]) Iron deficiency anemia, unspecified DX:Iron deficiency anemia, [...] on file Sexual Orientation Not on file Last Filed Vital Signs Vital Sign Reading [...] 04/01/2025 7:30 AM EST Hospital Encounter [facility] OR [address] [place] [phone] [place] D[place] [address] [address] 04/01/2025 7:30 AM EST - 04/01/2025 9:30 AM EST Surgery [facility] OR [address] [place] [phone] [place] DPM [address] [address] OSTEOTOMY TARSAL [[id number] (CPT )] 04/14/2025 9:00 AM EST Office Visit Orthopedic Surgery - [place] [address] [phone] [place] DPM [address] [address] Scheduled Procedures Name Priority Associated Diagnoses Date/Ti [...] age to complete this topic Insurance MEDICARE [facility] Care Teams Tennis Racket Repairer Relationship Specialty Start Date End Date Darien Bruner MD [address] [place] [address] Dr [place] PCP - General 09/04/23
[2025-02-25 08:06] LABS: Prothrombin Time Whole Bld POC 18.9 sec (11.1-13.5); ~PT, ~INR - Anti Coag Clinic 1.6 (0.9-1.1)
--- NOTE | 2025-02-25 08:19 | MHC.OFFVISCO ---
Intake Intake Visit Reasons: Anticoagulation Allergies Penicillins (PENICILLINS) Allergy (Intermediate, Verified 02/25/25 08:05) rash- STATES BAD RXN CHILD Medication List - Last Reconciled 02/25/25 by Sayra Adorno RN blood sugar diagnostic As directed carvedilol 12.5 mg PO DAILY cholecalciferol (vitamin D3) 50 mcg PO DAILY@1600 ezetimibe 10 mg PO DAILY ferrous sulfate (iron) 325 mg PO DAILY furosemide 40 mg orally 2 tabls MWF & 1 Tab TTSS; 90 days glipizide ER 10 mg (2 x 5 mg) PO BID lancets (OneTouch Delica Plus Lancet) As directed lisinopril 5 mg PO DAILY metformin ER 500 mg PO TID pzypeabfajba-aiazqixr-xalckr 1 tab PO DAILY oxycodone-acetaminophen 5-300 mg 1 tab PO Q6H PRN 10 days pravastatin 80 mg PO BEDTIME tamsulosin 0.4 mg PO DAILY@1700 90 days warfarin 2 mg See Protocol PO DAILY@1800 warfarin 4 mg See Protocol PO DAILY Nursing Note INR: 1.6 in therapeutic range s/p 6 dental extractions 02/21/25 - also has wound on foot healing Medications and supplements reviewed- he had 8mg x 2 days Friday + Fri , started (ezetimbe) Zetia Wed which can raise the INR with delayed onset No changes in health, diet, medications, or supplements, Denies any signs and symptoms of bleeding or bruising or clotting. Bleeding, bruising, clotting discussed Nutritional guidance given - avoid all greens until next INR Dose: 8mg fri this week - resume 6mg daily F/U INR: next week to make sure INR in range and assess effects of cholesterol med on INR Patient verbalizes understanding of instructions given Anti-Coag Initial Assessment Social Hx Patient Tobacco Use Status: Former Tobacco user Tobacco use type: Cigarette alcohol intake: former Alcohol intake frequency: does not drink Coding Level of Care Code Est Patient Level 1 Diagnoses Current use of anticoagulant therapy Z79.01 Assessment & Plan Assessment & Plan (1) Current use of anticoagulant therapy: Code(s): Z79.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
== END 2025-02-25 08:24 | disposition home or self-care (01) ==
LOC: HO.ACS 07:59
PROVIDERS: PCP Internal Medicine; Visit Provider Internal Medicine Medical Oncology
DX: Z79.01 Long term (current) use of anticoagulants (principal)

== ENCOUNTER → 2025-02-25 07:59 | Outpatient (BNVA) | payer MEDICARE, SELFPAY | PROVIDERS: PCP Internal Medicine; Visit Provider Internal Medicine Medical Oncology | DX: I48.19 Other persistent atrial fibrillation (principal); Z51.81 Encounter for therapeutic drug level monitoring; Z79.01 Long term (current) use of anticoagulants | CPT/HCPCS: 85610; 99211 ==

== ENCOUNTER 2025-03-01 07:51 | Outpatient (AMB) | payer MEDICARE, SELFPAY ==
--- OUTSIDE RECORDS SUMMARY | 2024-02-23 03:00 | XMS_ITS ---
Author Organization [facility] Address [address] [place] [address] Care Team Providers Care Car Carder Name Role Phone Young Bunn Primary Care Provider [phone] Ronel Leon [phone] Encounters Encounter Location Date Provider Diagnosis [address] [address] 02/23/2024 Ronel Leon Plan Of Treatment Next Appt Details Provider Name:Ronel Kendy Leon , 05/30/2025 03:15:00 PM, [address] [place] [address], [phone], Progress Notes * Leonardo GRIFFINDOB:1950 (74 yo M)Acc No.[id number]:02/23/2024 Progress Note Patient: Holli HERNANDEZLeonardo Provider: Rashard Leon DPM :1950 A ge:73 Y S ex:Male Date:02/23/2024 Address:[address] [place] [address] [place], [id number] Pcp:Young Bunn Subjective: * Chief Complaints: * [...] 1 04/25/2023 Generated for René temple/Melissa/Patel on: 05/02/2024 07:54 AM EST
--- OUTSIDE RECORDS SUMMARY | 2024-07-29 04:00 | XMS_ITS ---
Author Organization [facility] Address [address] [place] [address] Care Team Providers Care Truck Caterer Name Role Phone Young Bunn Primary Care Provider Ronel Leon [phone] Encounters Encounter Location Date Provider Diagnosis [address] [address] 07/29/2024 Ronel Leon Plan Of Treatment Next Appt Details Provider Name:Ronel Leon , 05/30/2025 03:15:00 PM, [address] [place] [address], [address], Progress Notes * Leonardo GRIFFINDOB:1950 (74 yo M)Acc No.[id number]:07/29/2024 Progress Note Patient: Holli HERNANDEZLeonardo Provider: Rashard Leon DPM :1950 A ge:74 Y S ex:Male Date:07/29/2024 Address:[address] [place] [address] [place], [id number] Pcp:Young Bunn Subjective: * Chief Complaints: * [...] 07/29/2024 Generated for René temple/Melissa/Patel on: 1 05/02/2024 07:54 AM EST
--- OUTSIDE RECORDS SUMMARY | 2024-10-25 06:15 | XMS_ITS ---
Author Organization [facility] Address [address] [place] [address] Care Team Providers Care Senior Java Web Developer Name Role Phone Young Bunn Primary Care Provider [phone] Ronel Leon [phone] Encounters Encounter Location Date Provider Diagnosis [address] [address] 10/25/2024 Ronel Leon Plan Of Treatment Next Appt Details Provider Name:Ronel Leon , 05/30/2025 03:15:00 PM, [address] [place] [address], [phone], Progress Notes * Leonardo GRIFFINDOB:1950 (74 yo M)Acc No.[id number]:10/25/2024 Progress Note Patient: Holli HERNANDEZLeonardo Provider: Rashard Leon DPM :1950 A ge:74 Y S ex:Male Date:10/25/2024 Address:[address] [place] [address] [place], [id number] Pcp:Young Bunn Subjective: * Chief Complaints: * [...] 10/25/2024 Generated for René temple/Melissa/Patel on: 1 05/02/2024 07:54 AM EST
--- OUTSIDE RECORDS SUMMARY | 2025-03-01 07:54 | XMS_ITS | Patient Health Record ---
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 (current) use of anticoagulants (Z79.01) Active confirmed Problem History of polyp of colon (situation) (859370651) Personal history of colonic polyps (Z86.010) Active confirmed Problem Pre-procedure evaluation check (364772468) Encounter for other preprocedural examination (Z01.818) Active confirmed Problem Long-term current use of insulin (921207966) exterminator termite (current) use of insulin (Z79.4) Active confirmed Plan Of Treatment Pending Test Test Name Order Date XR BARIUM ENEMA 11/18/2022 Future Test Test Name Order Date COLONOSCOPY 07/31/2011 COLONOSCOPY 02/07/2017 COLONOSCOPY 08/28/2022 Insurance Providers Payer Name Payer Address Payer Phone Subscriber Number Group Number Insured Name Patient Relationship to Insured Coverage Start Date Coverage End Date MEDICARE OF [place] [address] [place] [address] [id number] KAZ GRIFFIN Self - patient is the insured [employer] ATT[employer] CLAIMS [address] [place] [phone] [id number] KAZ GRIFFIN Self - patient is the [...]
--- OUTSIDE RECORDS SUMMARY | 2025-03-01 07:54 | XMS_ITS | Clinical Summary ---
Author Organization [facility] Address [address] [place], [place] [id number] Phone Care Team Providers Care Relay Shop Supervisor Name Role Phone Darien Bruner MD [...] [place] [address] MEDICARE PART [place] [phone] [employer] MEDEX SUPPLEMENT [facility]AM[facility]EL [facility] [place] [place] [address] MEDICARE PART A & B [facility] MEDEX [place] [address] MEDICARE PART A & B [employer] MEDEX SUPPLEMENT [place] [address] MEDICARE PART A & B [employer] MEDEX SUPPLEMENT [place] [address] MEDICARE PART A & B [employer] MEDEX SUPPLEMENT [address] MEDICARE PART A & B [employer] [place] [address] MEDICARE PART A & B Member Subscriber Plan / Payer (Ef fective 2021-) Name:Leonardo Pang Member ID:[id number] Relation to Subscriber:Self Name:Leonardo Pang Subscriber ID:[id number] Payer ID:[id number] Group ID:Not on file Type:Medicare Address: [employer] [address] [employer] MEDEX SUPPLEMENT MEDICARE PART A & B [employer] MEDEX SUPPLEMENT MEDICARE PART A & B [employer] CROSS MEDEX SUPPLEMENT Care Teams Relay Shop Supervisor Relationship Specialty Start Date End Date Darien Bruner MD [address] [place] [address] [place] [address] PCP - General Internal Medicine 05/31/21 Additional Source Comments The information contained in this document represents components of the legal health record. It is not the complete legal health record.[facility]
--- OUTSIDE RECORDS SUMMARY | 2025-03-01 07:54 | XMS_ITS | Patient Health Record ---
Author Organization [facility] Address [address] [facility] [place] [address] Care Team Providers Care Hydrology Technician Name Role Phone Young Bunn Primary Care Provider [phone] Black, Ronel Unavailable [phone] Allergies Allergen (clinical drug ingredient) Drug/Non Drug [...] Polyneuropathy due to type 2 diabetes mellitus (022985631) Type 2 diabetes mellitus with diabetic polyneuropathy (E11.42) Active confirmed Problem Diabetic neuropathic arthropathy (020727720) Charcot foot due to diabetes mellitus (E11.610) Active confirmed Vital Signs Blood pressure diastolic 65 mm Hg 10/28/2024 Height 5ft8in in 10/28/2024 Blood pressure systolic 121 mm Hg 10/28/2024 Weight 245 lbs 10/28/2024 BMI 37.25 kg/m2 10/28/2024 Procedures Procedure Date Ordered Date Performed Result Body Sit e 83042-RAIYEQV NAIL, 6 OR MORE 04/19/2024 N/A 41725-TFCR SKIN LESIONS, OVER 4 04/19/2024 N/A 21175-NCDCDXL NAIL, 6 OR MORE 10/28/2024 N/A 70622-OMIP SKIN LESIONS, OVER 4 10/28/2024 N/A Encounters Encounter Location Date Provider Diagnosis [address] [address] 04/19/2024 Ronel Black Type 2 diabetes mellitus with diabetic polyneuropathy E11.42 ; Charcot foot due to diabetes mellitus E11.610 ; Tinea unguium B35.1 ; Charcot gait R26.0 ; Skin ulcer of toe of right foot, limited to breakdown of skin L97.511 and Subungual contusion of toe of left foot, initial encounter S90.222A [address] [address] 10/28/2024 Ronel Black Type 2 diabetes mellitus with diabetic polyneuropathy E11.42 ; Charcot foot due to diabetes mellitus E11.610 ; Tinea unguium B35.1 and Charcot gait R26.0 [facility] [address] [place] [address] 07/26/2024 Ronel Leon [facility] [address] [place] [address] 02/16/2025 Ronel Leon Assessments Encounter Date Diagnosis [...] Test Name Order Date Hemoglobin A1c 06/04/2018 98418-NNVWKYB NAIL, 6 OR MORE 10/28/2024 61132-CNHOOTO NAIL, 6 OR MORE 04/19/2024 94194-CSTATWL NAIL, 6 OR MORE 12/05/2010 07238-OMCCAQW NAIL, 6 OR MORE 02/06/2011 58110-UYMCIYQ NAIL, 6 OR MORE 04/22/2011 34549-PDXZFNF NAIL, 6 OR MORE 07/15/2011 15263-HUDYWUS NAIL, 6 OR MORE 09/25/2011 43812-CNUDYAR NAIL, 6 OR MORE 10/28/2011 32437-WOKKWOL NAIL, 6 OR MORE 01/16/2012 73492-RFFUWUO NAIL, 6 OR MORE 04/08/2012 72142-QYIVHQU NAIL, 6 OR MORE 06/24/2012 25382-DWZLYPQ NAIL, 6 OR MORE 09/23/2012 89972-XBGFGBJ NAIL, 6 OR MORE 12/28/2012 66160-QMXJWLP NAIL, 6 OR MORE 03/31/2013 37047-EGMAHWK NAIL, 6 OR MORE 06/14/2013 71488-PFSNQCA NAIL, 6 OR MORE 09/20/2013 40660-CIMKEDU NAIL, 6 OR MORE 12/22/2013 57614-XRGORWE NAIL, 6 OR MORE 03/21/2014 77649-JQKAVIR NAIL, 6 OR MORE 06/20/2014 21893-DVQMJWF NAIL, 6 OR MORE 09/21/2014 70178-HFHZUNT NAIL, 6 OR MORE 11/30/2014 91976-BQNMDTM NAIL, 6 OR MORE 02/06/2015 36065-PIUBDTM NAIL, 6 OR MORE 05/01/2015 52735-HSPJLNX NAIL, 6 OR MORE 07/10/2015 99870-VVFGWHH NAIL, 6 OR MORE 10/02/2015 47958-LNHAZVX NAIL, 6 OR MORE 12/14/2015 77705-GZDUWXR NAIL, 6 OR MORE 02/22/2016 00711-SFOVMYR NAIL, 6 OR MORE 05/30/2016 86079-XLWXNKA NAIL, 6 OR MORE 08/29/2016 22384-AKOQCRO NAIL, 6 OR MORE 11/28/2016 01074-QGVOGPP NAIL, 6 OR MORE 02/27/2017 08152-SNNFRMV NAIL, 6 OR MORE 05/29/2017 39425-NVDXYAR NAIL, 6 OR MORE 08/28/2017 88999-ILIXJKS NAIL, 6 OR MORE 03/12/2018 79803-VTLNFYC NAIL, 6 OR MORE 11/27/2017 60330-MCNUVWO NAIL, 6 OR MORE 06/04/2018 02847-WLULIRU NAIL, 6 OR MORE 07/12/2021 03634-QTHTZQA NAIL, 6 OR MORE 10/25/2021 32129-QDDFZUR NAIL, 6 OR MORE 02/07/2022 16326-JGOWXSA NAIL, 6 OR MORE 06/13/2022 15947-UXVFDDY NAIL, 6 OR MORE 10/17/2022 62230-NHSELCN NAIL, 6 OR MORE 02/17/2023 88886-CXSZNSZ NAIL, 6 OR MORE 06/19/2023 82509-CIEFFAX NAIL, 6 OR MORE 10/23/2023 32072-Krxo Destruction, -14 02/17/2023 72320-Oydc Destruction, -06/19/2023 52310-Uccj Destruction, -06/13/2022 47361-Obcw Destruction, -10/17/2022 79538-Eajakcuo Plate 07/12/2021 72570-Icbfbonc Plate 10/25/2021 36771-Eokbvsoa Plate 05/29/2017 87951-Ndfjzkne Plate 08/29/2016 68219-Sbmvkhru Plate 11/30/2014 90090-Ictowsjx Plate 09/21/2014 05976-Wzvzgqwa Plate 06/14/2013 27955-Ulstvjbb Plate 06/20/2014 80192-Gywxdynv Plate 03/21/2014 33368-Oxlzkuas Plate 12/22/2013 59765-Qszmdnmy Plate 09/20/2013 88412- Debride <25 sq cm 09/20/2013 28599- Debride <25 sq cm 12/22/2013 20439- Debride <25 sq cm 06/14/2013 94637- Debride <25 sq cm 03/31/2013 15008- Debride <25 sq cm 03/21/2014 74661- Debride <25 sq cm 06/20/2014 15922- Debride <25 sq cm 09/21/2014 87452- Debride <25 sq cm 12/28/2012 60939- Debride <25 sq cm 09/23/2012 73946- Debride <25 sq cm 06/24/2012 43329- Debride <25 sq cm 04/08/2012 90628- Debride <25 sq cm 01/16/2012 94307- Debride <25 sq cm 10/28/2011 60791- Debride <25 sq cm 09/02/2011 42823- Debride <25 sq cm 09/25/2011 34087- Debride <25 sq cm 12/26/2010 66539- Debride <25 sq cm 02/22/2016 82472- Debride <25 sq cm 12/14/2015 76319- Debride <25 sq cm 10/02/2015 55911- Debride <25 sq cm 10/12/2015 75260- Debride <25 sq cm 10/06/2014 06816- Debride <25 sq cm 05/30/2016 36024- Debride <25 sq cm 02/27/2017 94046- Debride <25 sq cm 10/25/2021 18409- Debride <25 sq cm 02/07/2022 68527- Debride <25 sq cm 10/17/2022 91052-AOOGYXP SKIN/TISSUE 03/12/2018 36510-ZXTTZUS SKIN/TISSUE 06/04/2018 17754-PLKXCUO SKIN/TISSUE 11/27/2011 21839-YXTYUTA SKIN/TISSUE 12/11/2011 23384-SXBLLLI SKIN/TISSUE 10/06/2014 09755 I&D ABSCESS- SIMPLE,SINGLE 015 91570 I&D ABSCESS- SIMPLE,SINGLE 011 56393 I&D ABSCESS- SIMPLE,SINGLE 015 47106-GRGX SKIN LESIONS, OVER 4 12/01/19 15 01231-QFJD SKIN LESIONS, OVER 4 02/07/20 15 33061-PLKQ SKIN LESIONS, OVER 4 07/10/19 16 52971-DSPS SKIN LESIONS, OVER 4 05/01/19 16 05105-AJVR SKIN LESIONS, OVER 4 10/02/19 16 28507-NRLQ SKIN LESIONS, OVER 4 12/14/19 16 72987-SBLY SKIN LESIONS, OVER 4 02/22/20 16 09337-RPGC SKIN LESIONS, OVER 4 02/28/20 17 76650-EZAL SKIN LESIONS, OVER 4 05/30/19 18 14056-DMGO SKIN LESIONS, OVER 4 08/29/19 18 77408-HXFS SKIN LESIONS, OVER 4 11/28/19 18 36100-DARH SKIN LESIONS, OVER 4 05/31/19 17 70375-XSKM SKIN LESIONS, OVER 4 11/29/19 17 24591-FYRV SKIN LESIONS, OVER 4 06/05/19 19 20576-ZWOF SKIN LESIONS, OVER 4 03/12/19 19 97355-FKTN SKIN LESIONS, OVER 4 10/18/19 23 27079-RUUO SKIN LESIONS, OVER 4 06/14/19 23 98329-AWMC SKIN LESIONS, OVER 4 02/18/20 23 80649-BQXB SKIN LESIONS, OVER 4 06/19/19 24 94411-FPHA SKIN LESIONS, OVER 4 04/19/19 25 66617-CQGD SKIN LESIONS, OVER 4 10/23/19 24 26449-GYKN SKIN LESIONS, OVER 4 12/06/19 11 71477-JPVY SKIN LESIONS, OVER 4 02/07/20 11 73463-IBMZ SKIN LESIONS, OVER 4 07/15/19 12 71488-KFNK SKIN LESIONS, OVER 4 04/22/19 12 21670-PDKB SKIN LESIONS, OVER 4 09/25/19 12 57423-QQQI SKIN LESIONS, OVER 4 10/28/19 12 07453-SSVI SKIN LESIONS, OVER 4 09/24/19 13 07014-YNBO SKIN LESIONS, OVER 4 12/29/19 13 35974-IMYR SKIN LESIONS, OVER 4 01/16/20 12 57737-IFQI SKIN LESIONS, OVER 4 04/08/19 13 23485-OYJR SKIN LESIONS, OVER 4 06/25/19 13 72150-XDUL SKIN LESIONS, OVER 4 09/22/19 15 66757-KGTJ SKIN LESIONS, OVER 4 03/21/19 15 89645-VHNP SKIN LESIONS, OVER 4 06/21/19 15 98989-JEQR SKIN LESIONS, OVER 4 03/31/19 14 49090-RDSY SKIN LESIONS, OVER 4 06/15/19 14 50307-MTIA SKIN LESIONS, OVER 4 12/23/19 14 09749-GCLY SKIN LESIONS, OVER 4 09/21/19 14 19167-BJQG SKIN LESIONS, OVER 4 10/29/19 25 28704-CCUK SKIN LESIONS, 2 TO 4 12/23/19 14 64280-LRIP SKIN LESIONS, 2 TO 4 06/15/19 14 53123-ZYOB SKIN LESIONS, 2 TO 4 03/31/19 14 87417-DBUE SKIN LESIONS, 2 TO 4 06/21/19 15 24461-OZMP SKIN LESIONS, 2 TO 4 03/21/19 15 24378-TLDK SKIN LESIONS, 2 TO 4 12/29/19 13 64364-RTJC SKIN LESIONS, 2 TO 4 09/24/19 13 13207-URET SKIN LESIONS, 2 TO 4 07/13/19 22 71149-ZKMW SKIN LESIONS, 2 TO 4 02/08/20 22 40471-LCRM SKIN LESIONS, 2 TO 4 10/26/19 22 31667-VMLR SKIN LESIONS, 2 TO 4 08/30/19 17 28289-Yspf. Subungual Hematoma 2 18342-Yamp. Subungual Hematoma 2 Next Appt Details Provider Name:Ronel Leon , 05/30/2025 03:15:00 PM, [address] [facility], [place], [address], Insurance Providers Payer Name Payer Address Payer Phone Subscriber Number Group Number Insured Name Patient Relationship to Insured Coverage Start Date Coverage End Date Medicare National Govt Incentive Targeting [facility] [address] [place] [address] [id number] [id number] Leonardo Pang Self - patient is the insured [employer] [address] [place] [address] [id number] Leonardo Pang Self - patient is the [...] Reason Date(Month/Year) [facility] foot 08/28/23 [facility] 10/23/19 12
--- OUTSIDE RECORDS SUMMARY | 2025-03-01 07:55 | XMS_ITS | Clinical Summary ---
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 Paroxysmal atrial fibrillati on ([facility] V24, [facility] V28) DX:Paroxysmal atrial fibrill ation ([facility]) 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 ([facility] V24, [facility] V28) DX:Type 2 diabetes mellitus with polyneuropathy ([facility]) Heart failure, unspecified ( [facility] V24, [facility] V28) DX:Heart failure, unspecifie d ([facility]) 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: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 Lower back pain DX:Lower back pa in Pain in foot DX:Pain in foot Non-rheumatic tricuspid valv e insufficiency DX:Non-rheumatic tricuspid v alve insufficiency Chronic diastolic congestive heart failure ([facility] V24, [facility] V28) DX:Chronic diastoli c congestive heart failure ([facility]) Tachycardia, unspecified DX:Tach ycardia, unspecified MRSA (methicillin resistant Staphylococcus aureus) DX:MRSA (methicillin resista nt Staphylococcus aureus) Chronic atrial fibrillation ([facility] V24, [facility] V28) DX:Chronic atrial fibrillati on (HCC) Iron [...] Description 04/01/2025 7:30 AM EST Hospital Encounter [facility] Main OR [address] [place] [phone] [place] D[place] [address] [address] 04/01/2025 7:30 AM EST - 04/01/2025 9:30 AM EST Surgery [facility] OR [address] [place] [phone] [place] [address] [address] OSTEOTOMY TARSAL [[id number] (CPT )] 04/14/2025 9:00 AM EST Office Visit Orthopedic Surgery - [place] [address] [address] [phone] [place] D[facility] [address] [address] Scheduled Procedures Name Priority Associated Diagnoses Date/Ti [...] age to complete this topic Insurance MEDICARE [employer] Care Teams Welfare Eligibility Worker Relationship Specialty Start Date End Date Darien Bruner MD [address] [place] [address] [place] PCP - General 09/04/23
--- OUTSIDE RECORDS SUMMARY | 2025-03-01 07:55 | XMS_ITS | Clinical Summary ---
Author Organization [facility] Address [address] [place] [address] Care Team Providers Care Slitter Cut Off Operator Name Role Phone Darien Bruner MD Primary Care Provider [phone] Allergies Active Allergy Reactions Criticality Noted Date Comments Penicillins Unknown/Patient and Family Unable to Define Medium 02/10/2024 Medications SUPPLY DME MISCIndications :Pain in right ankle and joints of right foot RT ANKLE / Foot [place] Boot Dx: Diabetic Neuropathy, RT Plantar foot [...] topic Insurance MEDICARE PART A & B [place] [id number] Care Teams Slitter Cut Off Operator Relationship Specialty Start Date End Date Darien Bruner MD [address] [place] [address] [place] [address] PCP - General 01/19/24
--- OUTSIDE RECORDS SUMMARY | 2025-03-01 07:55 | XMS_ITS | Data Portability ---
Author Organization [place] - [facility], Allergy Address [address] [place] [id number] Care Team Providers Care Rolled Gold Plater Name Role Phone EMMA THOMAS Primary Care [...] Sensorine ural hearing loss of bilateral ears [id number] Active 2013 SNHL Bilaterall y; CMS Risk: low risk Note: Date Diagnosed: 12/10/2013 9:18 AM (389.18) Not Available [facility] 4 02:31:47 Bilateral sensory hearing loss [id number] Active 2013 Hearing loss: Sensory hearing loss, bilateral; Location: left Note: Date Diagnosed: 12/16/2013 11:26 AM (389.11) Not Available [facility] 4 02:31:45 Postopera tive follow-up visit Active 2013 Post op; Note: Date Diagnosed: 12/16/2013 11:26 AM (V67.00) Not Available [facility] 4 02:31:42 Allergic rhinitis caused by pollen 72849857 Active 2013 Vasomotor rhinitis; Note: Date Diagnosed: 01/10/2014 2:23 PM (477.0) Not Available [facility] 4 02:31:46 Gastroeso phageal reflux disease without esophagit is 801681715 Active 2014 Gastro-eso phageal reflux disease without esophagiti s; Note: Date Diagnosed: 01/16/2015 10:07 AM (K21.9) Not Available [facility] 4 02:31:43 Deviated nasal septum 469350283 Active 2014 Septal Deviation; Note: Date Diagnosed: 08/05/2014 11:13 AM (470) ; Start Date : 08/05/2014 Deviated nasal septum; Note: Date Diagnosed: 01/16/2015 9:52 AM (J34.2) Not Available [facility] 4 02:31:48 Hypertrop hy of nasal turbinate s 62232716 Active 2014 Nasal turbinate hypertroph y; Note: Date Diagnosed: 02/16/2014 12:31 PM (478.0) ; Start Date : 02/16/2014 Hypertrop hy of nasal turbinates ; Note: Date Diagnosed: 01/16/2015 9:52 AM (J34.3) Not Available [facility] 4 02:31:37 Obstructi ve sleep apnea syndrome 09376128 Active 2015 Obstructiv e sleep apnea (adult) (pediatric ); Note: Date Diagnosed: 05/04/2015 4:55 PM (G47.33) Not Available [facility] 4 02:31:48 Simple obesity 253993535 Active 2016 Other obesity due to excess calories; Note: Date Diagnosed: 10/09/2016 1:21 PM (E66.09) Not Available [facility] 4 02:31:33 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 Medical Equipment None Reported. Allergies Allergen ID Allergen Name Allergen Category Reaction Reaction Severity Criticality Documentation Date Start Date Code Code System Note Provider Name and Address Organization Details Recorded Time 96574 Product containin g penicilli n (product) medicatio n other Not available Not available 07/22/2023 20359 8001 SNOMED React ion: Unkno wn; Not Available [facility] 4 00:23:22 Medications Name Sig Start Date Stop Date Status Note LastModified by Organization Details LastModified Time furosemid e 40 mg tablet active Medicati on ID: [id number] B rand Name: furosemi de Send Method: E-Prescr ibed Sub s Allowed: subs OK Medic ationGen ericName : furosemi de Not Available Not Available Not Available metolazon e 2.5 mg tablet active Not Available Not Available Not Available metformin 500 mg tablet 05/11 completed Medicati on ID: [id number] Br and Name: metformi n Send Method: [...] ous solution 05/11 completed Medicati on ID: [id number] D uration Value: 28 Brand Name: Lantus U-100 Insulin Send Method: E-Prescr ibed Sub s Allowed: subs OK Speci al Instruct ion: INJECT 10 UNITS SUBCUTAN EOUSLY AT BEDTIME DISCAR D VIAL AFTER 28 DAYS Medic ationGen ericName : Lantus U-100 Insulin Not Available Not Available Not Available digoxin 250 mcg (0.25 mg) tablet 05/11 completed Medicati on ID: [id number] Br and Name: digoxin Send Method: E-Prescr ibed Sub s Allowed: subs OK Medic ationGen ericName : digoxin Not Available Not Available Not Available omeprazol e 40 mg capsule,d elayed release active Medicati on ID: [id number] B rand Name: omeprazo le Send Method: E-Prescr ibed Sub s Allowed: subs OK Medic ationGen ericName : omeprazo le Not Available Not Available Not Available tramadol 50 mg tablet 05/11 completed Medicati on ID: [id number] Br and Name: tramadol Send Method: E-Prescr ibed Sub s Allowed: subs OK Medic ationGen ericName : tramadol Not Available Not Available Not Available warfarin 4 mg tablet active Not Available Not Available Not Available Nexium 20 mg capsule,d elayed release 1 capsule by mouth once a day 05/11 completed Medicati on ID: [id number] Br and Name: Nexium S end Method: [...] 0.4 mg capsule active Medicati on ID: [id number] B rand Name: tamsulos in Send Method: E-Prescr ibed Sub s Allowed: subs OK Medic ationGen ericName : tamsulos in Not Available Not Available Not Available glipizide ER 2.5 mg tablet, extended release 24 hr 05/11 completed Medicati on ID: [id number] Br and Name: glipizid e Send Method: E-Prescr ibed Sub s Allowed: subs OK Medic ationGen ericName : glipizid e Not Available Not Available Not Available warfarin 2 mg tablet active Medicati on ID: [id number] B rand Name: warfarin Send Method: E-Prescr ibed Sub s Allowed: subs OK Medic ationGen ericName : warfarin Not Available Not Available Not Available fluticaso ne propionat e 50 mcg/actua tion nasal spray,andres pension 05/11 completed Medicati on ID: [id number] D uration Value: 30 Brand Name: fluticas one propiona te Send Method: E-Prescr ibed Sub s Allowed: subs OK Speci al Instruct ion: USE 1 SPRAY IN EACH NOSTRIL TWICE A DAY Medi cationGe nericNam e: fluticas one propiona te Not Available Not Available Not Available metformin ER 500 mg tablet,ex tended release 24 hr active Medicati on ID: [id number] B rand Name: metformi n Send Method: E-Prescr ibed Sub s Allowed: subs OK Medic ationGen ericName : metformi n Not Available Not Available Not Available ipratropi um bromide 21 mcg (0.03 %) nasal spray Inhale 2 spray into both nostrils three times a day as directed 05/11 completed Medicati on ID: [id number] Br and Name: Atrovent Send Method: E-Prescr [...] mcg tablet 05/11 completed Medicati on ID: [id number] Br and Name: Centrum Silver Ultra Men's Se nd Method: E-Prescr ibed Sub s Allowed: subs OK Medic ationGen ericName : Centrum Silver Ultra Men's Not Available Not Available Not Available Vitals Date Recorded Body height Body mass index (BMI) Body weight Provider Name and Address Organization Details Last Updated DateTime 08/14/2023 172.72 cm 38 kg/m2 113271.09 g Tevin Koch [place] - [facility] 08/14/2023 10:01:01 Social History None recorded. Functional Status None recorded. Mental Status None recorded. Family History Nothing Reported. Medical History No medical history recorded. Past Encounters Encounter ID Performer Location Encounter Start Date Encounter Closed Date Diagnosis/Indication Diagnosis SNOMED-CT Code Diagnosis ICD10 Code Diagnosis IMO Codes Diagnosis Note [id number] RAMYA ARNDT MD [facility] [address] [place] [address] 08/14/2023 09:50:50 08/14/2023 10:16:30 Benign neoplasm of parotid gland [id number] D11.0 Health Concerns Section Related Observation LastModified by Organization Detai ls LastModified Time None Recorded Concern Status LastModified by Organization Details LastModified Time None Recorded Advance Directives Directive None Recorded Payers Insurance Date Sequence Insurance Name Policy Number Policy Casarez Covered Member ID Casarez Member ID Guarantor Name 07/28/2023 2 [place] Leonardo Pang [id number] Leonardo Pang 08/14/2023 1 [place]: [facility] Leonardo Pang [id number] Leonardo Pang Notes Date Note Type Note Provider Name and Address Organization Details Recorded Time 08/14/2023 text/html ROS as noted in the HPI left parotid FNA 05/17/21 - warthin tumorct neck w contrast at [place] 04/27/21left parotid 2.8cm mass. compare with prior [...] cochlear implant with Dr Demetrio ARNDT MD [address] [place] [address], [phone], [facility] - [facility] 08/14/2023 10:15:11
[2025-03-01 08:08] LABS: Prothrombin Time Whole Bld POC 25.1 sec (11.1-13.5); ~PT, ~INR - Anti Coag Clinic 2.1 (0.9-1.1)
--- NOTE | 2025-03-01 08:11 | MHC.OFFVISCO ---
Intake Intake Visit Reasons: Anticoagulation Allergies Penicillins (PENICILLINS) Allergy (Intermediate, Verified 03/01/25 08:02) rash- STATES BAD RXN CHILD Medication List - Last Reconciled 03/01/25 by Edith Sharif RN blood sugar diagnostic As directed carvedilol 12.5 mg PO DAILY cholecalciferol (vitamin D3) 50 mcg PO DAILY@1600 ezetimibe 10 mg PO DAILY ferrous sulfate (iron) 325 mg PO DAILY furosemide 40 mg orally 2 tabls MWF & 1 Tab TTSS; 90 days glipizide ER 10 mg (2 x 5 mg) PO BID lancets (OneTouch Delica Plus Lancet) As directed lisinopril 5 mg PO DAILY metformin ER 500 mg PO TID qxqjhusmoqun-cjpredqc-bhkaju 1 tab PO DAILY oxycodone-acetaminophen 5-300 mg 1 tab PO Q6H PRN 10 days pravastatin 80 mg PO BEDTIME tamsulosin 0.4 mg PO DAILY@1700 90 days warfarin 2 mg See Protocol PO DAILY@1800 warfarin 4 mg See Protocol PO DAILY Nursing Note INR: 2.1 in therapeutic range of 2-3 Medications and supplements reviewed No changes in health, diet, medications, or supplements, Denies any signs and symptoms of bleeding or bruising or clotting. Bleeding, bruising, clotting discussed Nutritional guidance given to avoid greens today and to have a serving of foods that raise the INR. Food list reviewed. 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
== END 2025-03-01 08:16 | disposition home or self-care (01) ==
LOC: HO.ACS 07:51
PROVIDERS: PCP Internal Medicine; Visit Provider Internal Medicine Medical Oncology
DX: Z79.01 Long term (current) use of anticoagulants (principal)

== ENCOUNTER → 2025-03-01 07:51 | Outpatient (BNVA) | payer MEDICARE, SELFPAY | PROVIDERS: PCP Internal Medicine; Visit Provider Internal Medicine Medical Oncology | DX: Z79.01 Long term (current) use of anticoagulants (principal) | CPT/HCPCS: 85610; 99211 ==